=== PATIENT | female | born 1950 | race Caucasian/White ===

== ENCOUNTER 2017-05-05 20:41 | Emergency (ER) | payer MEDICARE, SELFPAY ==
[2017-05-05] VITALS (7 sets, daily range): BP systolic 118–183; BP diastolic 62–108; PULSE 89–121; RESP 13–27; TEMP 36.8; O2SAT 93–99; BMI 33.5
--- NOTE | 2017-05-05 21:00 | RAD_ITS ---
STUDY: X-RAY - RIGHT ANKLE REASON FOR EXAM: Female, 67 years old. Pain, trauma TECHNIQUE: 3 view(s) of the ankle. COMPARISON: None. FINDINGS: There is trimalleolar fracture with disruption of the ankle mortise with lateral posterior subluxation at the ankle joint. No osseous destruction. Normal visualized talus and calcaneus. The visualized subtalar, talonavicular, calcaneocuboid and tarsal articulations are normal. The soft tissue structures are unremarkable. RAD/Ankle 2 Views IMPRESSION: Trimalleolar fracture/subluxation Electronically Signed: Corey Garcia MD at 21:22 EST Tel , Service support ,
[2017-05-05] MEDS: fentaNYL 100 MCG/2 ML Ampul 25 MCG IV (21:03)
[2017-05-05] MEDS: Ondansetron 4 MG/2 ML Vial IV (21:03)
[2017-05-05] MEDS: Propofol 200 MG/20 ML Vial IV BOLUS (21:28)
--- NOTE | 2017-05-05 23:05 | RAD_ITS ---
STUDY: X-RAY - RIGHT ANKLE REASON FOR EXAM: Female, 67 years old. History of ankle fracture. Post reduction. TECHNIQUE: 3 view(s) of the ankle. COMPARISON: 05/05/2017, 9:09 PM. FINDINGS: There again is an oblique displaced fracture of the distal fibula. There again is a transverse displaced fracture of the medial malleolus. There is persistent subluxation of the tibiotalar joint but improved since the previous exam. Fracture of the posterior malleolus is again seen. The pancreas in cast obscuring the soft tissues and bony details. RAD/Ankle min 3 Views IMPRESSION: Trimalleolar fracture of the right ankle as described above. Electronically Signed: Talib Heck MD at 23:26 EST Tel , Service support ,
--- NOTE | 2017-05-05 23:43 | ED.VISSUMM ---
- ER Visit Summary Date of Service: 05/05/17 Chief Complaint: Ankle injury History of Present Illness: The patient is a 67 F who went to let her dog out when she slipped and fell on the wet grass/snow. EMS notes obvious deformity to the right ankle. Patient denies any other injuries. She is a patient of Dr. Hein from orthopedics. Patient received fentanyl in route and she was air splinted. Physical Examination: Afebrile vital signs are stable Gen: Well-nourished well-developed Head: Normocephalic atraumatic Eyes: Perrl EOMI ENT: TMs clear no rhinorrhea moist mucous membranes Neck: Supple no lymphadenopathy no JVD nontender CVS: Regular rate rhythm no murmurs normal S1-S2 Respiratory: No distress clear to auscultation bilaterally chest nontender Abdomen: Soft nontender nondistended normal bowel sounds no masses Back: Nontender Extremity: Right ankle is obviously deformed. There is no fibular head tenderness. She is neurovascularly intact distal to the injury. This appears to be a closed injury Skin: Normal color no rash Neuro: alert orientated ?3 CN II-XII intact normal strength sensation reflexes gait cerebellar Psych: Normal affect normal mood Test Results: X-rays demonstrated trimalleolar fracture Emergency Department Course and Treatment: Patient received fentanyl and Zofran. She provided informed consent for the use of propofol for procedural sedation. Patient received 1 mg/kg bolus followed by 0.5 mg kilogram bolus to achieve adequate sedation. Once adequate sedation the splint was removed the ankle was reduced and was placed in a cotton padded posterior and stirrup splint. Patient was allowed to recover without incident. Post x-ray films were obtained. She was given [place]. She has done okay on crutches in the past. Her is going to get a walker to help with nonweightbearing around the house. They are going to follow-up with Dr. Hein return if worsening. Impression: 1. Right trimalleolar fracture 2. Splint by physician 3. Procedural sedation by physician This note was generated with [employer] dictation software. It may contain incorrect words, spelling, and punctuation that were not noted in review of the chart prior to signing ED Disposition - Plan for ED Patient: Disposition: Home or Assisted Living Chief Complaint: Lower Extremity Injury Instructions: ED Fx Ankle General Prescriptions: Hydrocodone Bitart/Apap 5-325 [[place] 5/325] 1 - 2 tab PO Q4H PRN PRN 3 Days #20 tab PRN Reason: Pain Referrals: Akbar Farias MD [Primary Care Provider] - Ernesto Hein DO [STAFF PHYSICIAN] - (call in am to arrange follow up)
[2017-05-06] MEDS: HYDROcodone Bitartrate/Apap 5/325 Tablet PO (00:09)
[2017-05-06 00:10] VITALS: BP 128/69; PULSE 90; RESP 14; O2SAT 94
== END 2017-05-06 00:57 | disposition home or self-care (01) ==
PROVIDERS: Emergency Provider Emergency Medicine; Family Provider Family Medicine; PCP Family Medicine
DX: S82.851A Displaced trimalleolar fracture of right lower leg, initial encounter for closed fracture (principal); W01.0XXA Fall on same level from slipping, tripping and stumbling without subsequent striking against object, initial encounter; Y93.89 Activity, other specified; Y92.007 Garden or yard of unspecified non-institutional (private) residence as the place of occurrence of the external cause; E78.00 Pure hypercholesterolemia, unspecified; E07.9 Disorder of thyroid, unspecified; Z79.82 Long term (current) use of aspirin; Z79.899 Other long term (current) drug therapy; Z85.3 Personal history of malignant neoplasm of breast
CPT/HCPCS: 29515; 73600; 73610; 96361; 96374; 96375; 99152; 99285; J7030; J7040; A4216; J2405

== ENCOUNTER → 2017-05-12 09:55 | Outpatient (CLI) | payer MEDICARE, SELFPAY ==
[2017-05-12 12:06] LABS: Hematocrit 37.4 % (37-47); Hemoglobin 12.1 g/dl (12.0-15.0); Mean Corp Hgb Conc 32.4 g/gl (32-36); Mean Corpuscular Hgb 30.6 pg (27.0-32.0); Mean Corpuscular Volume 94.7 fL (81-99); Mean Platelet Vol. 10.2 fl (6.2-12.0); Platelet Count 288 K/mm3 (150-450); RBC Distribution Width CV 13.6 % (11.6-14.6); RBC Distribution Width SD 47.2 fl (35.1-43.9); Red Blood Count 3.95 M/mm3 (4.2-5.4); White Blood Count 7.7 K/mm3 (4.4-11.0)
[2017-05-12 12:07] LABS: Scan Indicated on CBC? Y/N NO
[2017-05-12 12:12] LABS: Prothrombin Time (Protime)PT. 12.7 SECONDS (11.7-14.9)
[2017-05-12 12:13] LABS: Partial Thromboplast Time 28.9 Seconds (24.1-36.2)
[2017-05-12 12:38] LABS: Albumin, Serum 3.7 g/dL (3.2-5.0); BUN 16 mg/dL (7-18); BUN/Creat Ratio 19.5 RATIO (10-20); Creatinine, Serum 0.82 mg/dL (0.55-1.02); EST Glomerular Filtration Rate 74 mL/min (>60); Est Glom Filt Rate - Afr Amer 90 mL/min (>60); Globulin 3.7 g/dL (2.2-4.2); Glucose 109 mg/dL (74-106); Protein, Total 7.4 g/dL (6.4-8.2)
[2017-05-12 12:39] LABS: AST(SGOT) 25 U/L (15-37); Alanine Aminotransfer ALT/SGPT 34 U/L (13-56); Alkaline Phosphatase 129 U/L (45-117); Anion Gap 10 (5-15); Calcium,Total 8.7 mg/dL (8.5-10.1); Chloride 107 mmol/L (98-107); Cholesterol 160 mg/dL (200); High Density Lipoprotein 48 mg/dL; Sodium Level 141 mmol/L (136-145); Thyroid Stim Hormone (TSH) 7.16 uIU/mL (0.358-3.74); Triglycerides 246 mg/dL; Very Low Density Lipoprotein 49 mg/dL (5-40)
[2017-05-13 09:47] LABS: Vitamin D,25 Hydroxy 38.1 ng/mL (29.95-100.01)
== END ==
PROVIDERS: Family Provider Family Medicine; PCP Family Medicine; Visit Provider Family Medicine
DX: Z01.818 Encounter for other preprocedural examination (principal); S82.891A Other fracture of right lower leg, initial encounter for closed fracture; E11.9 Type 2 diabetes mellitus without complications; E78.5 Hyperlipidemia, unspecified; E03.9 Hypothyroidism, unspecified
CPT/HCPCS: 36415; 80053; 80061; 82306; 84443; 85027; 85610; 85730

== ENCOUNTER → 2017-05-12 13:23 | Outpatient (CLI) | payer MEDICARE, SELFPAY ==
--- NOTE | 2017-05-12 13:26 | CT_ITS ---
STUDY: CT RIGHT ANKLE WITHOUT CONTRAST REASON FOR EXAM: Female, 67 years old. Right ankle fracture RADIATION DOSAGE (If Supplied By Facility): CTDIvol = ( 15.35 ) mGy, DLP = ( 495.76 ) mGycm TECHNIQUE: Thin section transaxial imaging of the ankle was obtained, with sagittal and coronal reconstructed images. Individualized dose optimization techniques were used for this CT. COMPARISON: None. FINDINGS: There is an acute, comminuted intra-articular spiral fracture of the distal fibula with mild separation of the fracture fragments. There is an obliquely oriented comminuted intra-articular fracture of the posterior malleolus with with mild separation of fracture fragments. There is a transverse fracture through the distal tibial plafond with mild medial displacement of the proximal fracture fragment. There is also widening of the anterior tibiotalar joint. Normal talus, calcaneus, navicular and cuboid tarsal bones. Normal subtalar, talonavicular and calcaneocuboid articulations. Normal navicular-cuneiform, cuneiform tarsal bones and intercuneiform articulations. Normal tarsometatarsal articulations and visualized metatarsi. Diffuse soft tissue swelling is noted. CT/Extremity Lower without Contra IMPRESSION: Acute displaced trimalleolar fracture with anterior tibiotalar subluxation Electronically Signed: Janes Jett MD at 21:01 EST , Service support ,
--- NOTE | 2017-05-12 13:28 | CT_ITS ---
STUDY: CT RIGHT ANKLE WITHOUT CONTRAST REASON FOR EXAM: Female, 67 years old. Right ankle fracture RADIATION DOSAGE (If Supplied By Facility): CTDIvol = ( 15.35 ) mGy, DLP = ( 495.76 ) mGycm TECHNIQUE: Thin section transaxial imaging of the ankle was obtained, with sagittal and coronal reconstructed images. Individualized dose optimization techniques were used for this CT. COMPARISON: None. FINDINGS: There is an acute, comminuted intra-articular spiral fracture of the distal fibula with mild separation of the fracture fragments. There is an obliquely oriented comminuted intra-articular fracture of the posterior malleolus with with mild separation of fracture fragments. There is a transverse fracture through the distal tibial plafond with mild medial displacement of the proximal fracture fragment. There is also widening of the anterior tibiotalar joint. Normal talus, calcaneus, navicular and cuboid tarsal bones. Normal subtalar, talonavicular and calcaneocuboid articulations. Normal navicular-cuneiform, cuneiform tarsal bones and intercuneiform articulations. Normal tarsometatarsal articulations and visualized metatarsi. Diffuse soft tissue swelling is noted. CT/Coronals Sag Multi Obl 3-D Rec IMPRESSION: Acute displaced trimalleolar fracture with anterior tibiotalar subluxation Electronically Signed: Janes Jett MD at 21:01 EST , Service support ,
== END ==
PROVIDERS: Family Provider Family Medicine; PCP Family Medicine; Visit Provider Podiatrist
DX: Z01.818 Encounter for other preprocedural examination (principal); S82.851A Displaced trimalleolar fracture of right lower leg, initial encounter for closed fracture; E11.9 Type 2 diabetes mellitus without complications; E78.5 Hyperlipidemia, unspecified; E03.9 Hypothyroidism, unspecified
CPT/HCPCS: 36415; 73700; 76377; 80053; 80061; 82306; 84443; 85027; 85610; 85730

== ENCOUNTER 2017-05-16 18:55 | Observation (INO) | payer MEDICARE, SELFPAY ==
[2017-05-16] VITALS (11 sets, daily range): BP systolic 127–197; BP diastolic 63–96; PULSE 83–105; RESP 14–18; TEMP 36.4–37.1; O2SAT 92–100; BMI 29.4; BMI 30.3
--- NOTE | 2017-05-16 11:15 | RAD_ITS ---
STUDY: X-RAY CHEST REASON FOR EXAM: Female, 67 years old. Pre-op TECHNIQUE: Frontal and lateral views of the chest. COMPARISON: None. FINDINGS: Normal lung volumes. 9 mm nodule in the mid right lung. CT scan recommended. No infiltrates or effusions. There is no demonstrated pleural abnormality. Normal size heart. Normal mediastinum and sasha. Normal visualized pulmonary arteries. Normal visualized aortic arch and descending thoracic aorta. Normal visualized thoracic spine. Normal visualized ribs, clavicles, and shoulders. There is no demonstrated abnormality of the visualized soft tissue structures of the upper abdomen. RAD/Chest PA and Lateral IMPRESSION: 9 mm nodule in the mid right lung. CT scan recommended. Electronically Signed: Charlie Lynn MD at 11:48 EDT , Service support ,
[2017-05-16 12:56] LABS: Bedside Glucose 121 mg/dL (70-110)
--- NOTE | 2017-05-16 13:00 | RAD_ITS ---
STUDY: X-RAY - RIGHT ANKLE REASON FOR EXAM: Female, 67 years old. ORIF right ankle fractures TECHNIQUE: 10 C-arm view(s) of the ankle. 68.6 seconds fluoroscopy time COMPARISON: None. FINDINGS: These images show grossly satisfactory appearance of the ankle, medial malleolus, and distal fibula status post ORIF. Correlate with procedure note. Electronically Signed: Charlie Lynn MD at 15:38 EDT , Service support , RAD/Ankle min 3 Views
[2017-05-16 13:08] LABS: Hemoglobin A1c 6.2 % (4.2-6.3)
[2017-05-16] MEDS: Clindamycin 900 MG/50 ML BAG 75 MG IV (13:33)
[2017-05-16] MEDS: Bupivacaine Mpf 0.5% 30 ML VIAL (15:30)
--- NOTE | 2017-05-16 15:55 | PCM.OPRPT ---
Report of Operation Date of Procedure: 05/16/17 - Surgeon: Janes Avalos DPM Pre-Operative Diagnosis: Trimalleolus Ankle Fracture, Right Post-Operative Diagnosis: Same Surgery/Procedure Performed:: Open reduction internal fixation, right trimalleolus ankle fracture Description of Surgical Findings:: Trimalleolar ankle fracture office services assistant: Yes - Dr. Mariam River Type of Anesthesia:: General, Spinal Specimen's removed: None Estimated Blood Loss (mL): 20mL Description of Procedure: Indications: This is a 67 year old female sustained a right trimalleolar ankle fracture on 05/05/17. Closed reduction was preformed by the Emergency Room physician. Pre operative xrays as well as CT scan were obtained and reviewed. There was trimalleolar ankle fracture with subluxation present, there was mild diastasis of the distal tib fib syndesmosis. Patient elected to proceed forward with open reduction internal fixation of the trimalleolar ankle fracture. The procedure was reviewed with her in detail. The rationale of the procedure was reviewed with her. The goals and the expectations were discussed and reviewed with her. The possible benefits vs risks and all potential complications were discussed and reviewed with the patient. The patient expressed understanding and agreement, and elected to proceed forward with the procedure. All of her questions were answered. The consent forms were reviewed with her and she freely signed them. No guarantees were given or implied. Operative Procedure: The patient was brought back to the operating room and was placed on the operating room table in the supine position. She did received spinal anesthesia per the anesthesia service. The patient was carefully secured to the operating room table with a safety belt around her waist. The patient received 900 milligrams of IV clindamycin for antibiotic prophylaxis. The anesthesia team decided to also give the patient general anesthesia as sensation was still intact to the right lower extremity following the spinal anesthesia. A well padded pneumatic tourniquet was applied around her right thigh. The right lower extremity was scrubbed, prepped, and draped in the usual aseptic fashion. The right foot/ankle was elevated for 3 minutes and the right thigh pneumatic tourniquet was inflated to 350mmHg. The ankle was noted to be unstable due to the trimalleolar fracture. There was noted to be a well healed fracture blister to the medial ankle. Using a 15 blade, a skin incision was made overlying the lateral malleolus. Careful dissection (combination of blunt and sharp) was completed down to the lateral malleolus fracture. The periosteum was left intact. It was noted the posterior aspect of the distal fracture fragment was comminuted. The fibula was brought out to length and was rotated back to normal position, it was stabilized with a bone clamp. An intra-fragment screw was not placed across the fracture site due to the comminution which was present. Rather the fracture was fixated using rigid open reduction internal fixation technique with 1 Arthrex a titanium distal fibular plate, which was applied across the fracture site using a total of five 2.7mm locking screws distally and three 3.5mm locking screws and one 3.5mm cortical screw proximally through the plate. The clamp was removed. There fracture was reduced, very stable, and in good position. This was confirmed visually as well as using intra operative fluoroscopy. Attention was directed to the medial malleolus. A skin incision was made overlying the medial malleolus using a 15 scalpel blade. Careful blunt dissection was completed down to the medial malleolus where the fracture was identified. There was soft tissue inter position between the fracture fragments. This was composed of periosteum. The periosteum was moved out from in between the fracture fragments and the medial malleolus was reduced back manually into normal position. The medial malleolus fracture site was fixated with two 4.0mm Arthrex cannulated screws. There fracture was reduced, stable, and in good position. This was confirmed visually as well as using intra operative fluoroscopy. There was noted to be very mild instability of the distal syndesmosis, and the . The distal ankle syndesmosis was stressed with a bone hook as well as with dorsiflexion external rotation stress test, and it was noted be be stable with no gapping present. At this time there was noted to be excellent stability to the ankle joint, range of motion was smooth and gliding normally. There was no popping, clicking, or crepitus present. Intraoperative fluoroscopy was used to check the site and it was noted fibular length and tib fib overlap was normal, ankle mortise with medial and lateral gutters in normal position/alignment with good positioning of the plate, screws, and tight rope. There was good bone to bone alignment of the fracture sites. There was excellent stability to the ankle / fracture site. The ankle was stressed under fluoroscopy and negative anterior drawer, normal talar tilt, no medial gutter gapping with external stress test, and no gapping or instability with Cotton test as noted above. The surgical site was flushed out with copious amounts of normal saline solution. The subcutaneous tissue was reapproximated using 2-0 and 3-0 Vicryl, and the skin was 3-0 Monocryl. 10mL of 0.55% Marcaine plain was given as a saphenous nerve block to aid post operative pain control. The incision sites and margins were painted with Cavilon and steri strips were applied. A dressing was applied which consisted of betadine soaked adaptic, 4x4 gauze, kerlix, webril, lisa bandages, and well padded below knee posterior splint. Prior to closure the tight pneumatic tourniquet was deflated and it was noted all hemostasis was achieved. There was immediate return of vascular flow to the foot/ankle, CFT < 2 seconds, and normal temperature present. Total tourniquet time was 79 minutes. Also of note, all vital structures, including all vital neurovascular and tendon structures were properly identified, protected and retracted as necessary. The patient tolerated the above procedure well and anesthesia well with no complications. The patient was transports to the recovery room in good condition and vital signs stable. The patient did receive a right lower extremity popliteal block per the anesthesiology service in the recovery room for post operative pain control. Post op orders were placed, no weightbearing right foot, keep right foot elevated. She will be admitted for post op pain control and observation. I spoke with hospitalist Dr. Thomas, who agreed. Patient will be followed as inpatient. Grafts/Implants Used: Arthrex fibular plate, Arthrex screws, Arthrex tightropes - Complications None
--- NOTE | 2017-05-16 16:10 | RAD_ITS ---
STUDY: X-RAY - RIGHT ANKLE REASON FOR EXAM: Female, 67 years old. Postop TECHNIQUE: 3 view(s) of the ankle. COMPARISON: May 16, 2017 FINDINGS: Postsurgical changes status post open reduction internal fixation falls casting of distal tibial and fibular fractures. Fracture fragments are in near anatomic alignment and position RAD/Ankle min 3 Views IMPRESSION: Status post ORIF and casting distal tibial and fibular fractures Electronically Signed: Janes Jett MD at 20:06 EDT , Service support ,
[2017-05-16 16:21] LABS: Bedside Glucose 123 mg/dL (70-110)
--- NOTE | 2017-05-16 16:45 | PCM.HP.STD ---
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 This is a 67 years old female patient admitted for elective surgery for traumatic trimalleolar right ankle fracture on May 05, 2017 and she underwent open reduction internal fixation today and she is being admitted for postoperative pain control and management. At this time, she mentioned that her right ankle pain is about 6 out of 10 in severity, dull aching pain, not radiating and no associated symptoms. She had a mechanical fall back on May 05, 2017 that led to this fracture. She denied chest pain or shortness of breath. Denied abdominal pain, nausea vomiting. Denied fever or chills. Denied cough or sputum production. She has history of type 2 diabetes mellitus she has been on metformin, most recent hemoglobin A1c was on May 12, 2017 and was 6.2. She had a history of hypothyroidism, has been on levothyroxine and her TSH was 7.1 on May 12, 2018 which is above reference range. She has history of hypertension and she has been on losartan and usually her blood pressure under control. At this time, blood pressure is slightly elevated, heart rate has been in the 90s, pulse ox is 100% on 3 L of oxygen. Preoperative routine blood work including CBC and BMP that was performed on May 12, 2017 reviewed and was unremarkable. She is being admitted for traumatic trimalleolar right ankle fracture status post ORIF for postoperative pain control and management. Past Medical History Past Medical History (Chronic Problems): Chronic Problems (Last Reviewed 03/02/17 @ 14:08 by Erin Gibbons) Hypothyroidism (Chronic) Type 2 diabetes mellitus (Chronic) Hypertension (Chronic) History of right breast cancer (Chronic) Ductal carcinoma of breast (Chronic) Allergies Penicillins [PCN] Allergy (Severe, Verified 05/12/17 14:18) Hives Home Medications: Ambulatory Orders Medication Instructions Recorded Atorvastatin Calcium [Lipitor] 40 mg PO QHS 06/02/16 Levothyroxine [Synthroid] 112 mcg PO DAILY 06/02/16 Metformin HCl [Glucophage] 500 mg PO QHS 06/02/16 Niacin [Niaspan] 1,000 mg PO QHS 06/02/16 Pramipexole Di-HCl [Mirapex] 0.5 mg PO BID 06/02/16 Losartan Potassium [Cozaar] 50 mg PO DAILY 08/03/16 Omeprazole [Prilosec] 40 mg PO DAILY 08/03/16 Aspirin, Baby 81 mg PO QHS 05/05/17 Hydrocodone Bitart/Apap 5-325 1 - 2 tab PO Q4H PRN PRN 3 Days 05/05/17 [[place] 5/325] #20 tab Calcium Carbonate/Vitamin D3 1 each PO BID 05/12/17 [Calcium 600 with Vit D Chew Tb] Citalopram [Celexa] 20 mg PO QHS 05/12/17 Multivit with Calcium,Iron,Min 1 each PO DAILY 05/12/17 [Multiple Vitamins For Women] Naproxen Sodium [Aleve] 440 mg PO DAILY 05/12/17 Surgical History: noncontributory Psychiatric History: No pertinent psych hx RESPIRATORY CARE FACULTY History: No pertinent RESPIRATORY CARE FACULTY history Lives: Spouse/ Significant Other Smoking Status: Never smoker Alcohol: None Drugs: None - *Family History Maternal History Items: No pertinent history Review of Systems Constitutional: Denies: Anorexia, Chills, Fever, Weakness Eyes: Denies: Blurred vision, Double vision, Drainage, Redness HEENT: Denies: Difficulty Hearing, Ear Pain, Eye Pain, Nasal Congestion, Post Nasal Drip, Sore Throat Cardiovascular: Denies: Chest Pain, Chest Pressure, Chest Tightness, Edema, Heaviness, Paroxysmal Noc. Dyspnea, Syncope Respiratory: Denies: Cough, Hemoptysis, Pleuritic Pain, Shortness of Breath, Sputum production Gastrointestinal: Denies: Abdominal Pain, Constipation, Diarrhea, Nausea, Vomiting Genitourinary: Denies: Dysuria, Frequency, Hematuria Musculoskeletal: Reports: Foot Pain, Joint Pain. Denies: Arm Pain, Back Pain Skin: Denies: Dryness, Rash Neurological: Denies: Balance problems, Blurred vision, Change in Speech, Slurred speech, Confusion, Incoordination, Numbness Psychiatric: Denies: Anxiety Endocrine: Denies: Change in Body Habitus, Polydipsia VTE Information - Inpt Only VTE Present on Admission: No VTE Mechan Device Prophylaxis: SCD's VTE Pharm Prophylaxis ordered?: No - Physical Exam General: Alert, Cooperative, No apparent distress HEENT: Atraumatic, PERRLA, EOMI Oral: Moist Mucosa, No Gingival or Mucosal Lesions/ Ulcerations Neck: Supple, No JVD, Negative Carotid Bruits, Trachea Midline, Thyroid Normal Size and Texture Lungs: Clear to auscultation, No rhonchi, No wheeze, No rales, Diminished Cardiovascular: Regular rate, Regular Rhythm, Normal S1, Normal S2, No murmurs, PMI Normal Abdomen: Bowel Sounds Present, Soft, Non Tender, Non-Distended, No Hepato-splenomegaly Extremities: No clubbing, No cyanosis, No edema Skin: No rashes, No breakdown Lymphatic: No Cervical, Supraclavicular, or Inguinal Adenopathy Neurological: Cranial nerves II-XII grossly intact, Motor Exam 5/5 strength throughout Psych/Mental Status: Normal Affect, Appropriate, Alert and oriented to time, place, person, mood and affect Vital Signs Temp Pulse Resp BP Pulse Ox 97.7 F L 95 16 175/81 H 100 05/16/17 16:00 05/16/17 16:15 05/16/17 16:15 05/16/17 16:15 05/16/17 16:15 Oxygen Flow Rate (L/min) 3 Oxygen Delivery Method Nasal Cannula Weight: 177 lb Body Mass Index (BMI) 29.4 Laboratory Tests Past 24 Hrs 05/12/17 10:00 Hemoglobin A1c 6.2 POC Glucose 05/16/17 05/16/17 16:17 12:08 POC Glucose 123 H 121 H Assessment/Plan The patient is a 67 year old F with past medical history as mentioned above who underwent elective surgery for traumatic trimalleolar right ankle fracture due to mechanical fall on May 05, 2017 and she underwent open reduction and internal fixation today and she is being admitted for postoperative pain control and management. #1 traumatic trimalleolar right ankle fracture: Status post ORIF, postop day 1. At this time, right ankle pain is manageable. Blood pressure slightly elevated, other vital signs are stable. Plan: Admit to MedSurg floor, cardiac monitoring, IV hydromorphone for pain as needed, OxyIR as needed for pain, podiatry medicine consult, laxatives, continue perioperative prophylaxis with IV clindamycin, PT OT evaluation and treatment. #2 type 2 diabetes mellitus: ADA diet, Accu-Cheks, insulin sliding scale, hold metformin,. #3 hypertension: Blood pressure slightly elevated, continue losartan, start IV hydrazine as needed #4 hypothyroidism: TSH was 7.1 recently. Plan to continue levothyroxine, check free and total T4 as well as free T3. #5 hyperlipidemia: Continue statins. #6 depression: Continue Celexa. #7 history of breast cancer: Status post mastectomy, stable, in remission. #8 DVT prophylaxis: Full dose aspirin daily, SCDs. This note was generated with [employer] dictation software. It may contain incorrect words, spelling, and punctuation that were not noted in checking the note before signing. Code Visit Inpatient E&M: 50068 Init Hosp L3
--- NOTE | 2017-05-16 16:48 | HP.PCM_ITS ---
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 This is a 67 years old female patient admitted for elective surgery for traumatic trimalleolar right ankle fracture on May 05, 2017 and she underwent open reduction internal fixation today and she is being admitted for postoperative pain control and management. At this time, she mentioned that her right ankle pain is about 6 out of 10 in severity, dull aching pain, not radiating and no associated symptoms. She had a mechanical fall back on May that led to this fracture. She denied chest pain or shortness of breath. Denied abdominal pain, nausea vomiting. Denied fever or chills. Denied cough or sputum production. She has history of type 2 diabetes mellitus she has been on metformin, most recent hemoglobin A1c was on May 12, 2017 and was 6.2. She had a history of hypothyroidism, has been on levothyroxine and her TSH was 7.1 on May 12, 2018 which is above reference range. She has history of hypertension and she has been on losartan and usually her blood pressure under control. At this time, blood pressure is slightly elevated, heart rate has been in the 90s, pulse ox is 100% on 3 L of oxygen. Preoperative routine blood work including CBC and BMP that was performed on May 12, 2017 reviewed and was unremarkable. She is being admitted for traumatic trimalleolar right ankle fracture status post ORIF for postoperative pain control and management. Past Medical History Past Medical History (Chronic Problems): Chronic Problems (Last Reviewed 03/02/17 @ 14:08 by Erin Gibbons) Hypothyroidism (Chronic) Type 2 diabetes mellitus (Chronic) Hypertension (Chronic) History of right breast cancer (Chronic) Ductal carcinoma of breast (Chronic) Allergies Penicillins [PCN] Allergy (Severe, Verified 05/12/17 14:18) Hives Home Medications: Ambulatory Orders Medication Instructions Recorded Atorvastatin Calcium [Lipitor] 40 mg PO QHS 06/02/16 Levothyroxine [Synthroid] 112 mcg PO DAILY 06/02/16 Metformin HCl [Glucophage] 500 mg PO QHS 06/02/16 Niacin [Niaspan] 1,000 mg PO QHS 06/02/16 Pramipexole Di-HCl [Mirapex] 0.5 mg PO BID 06/02/16 Losartan Potassium [Cozaar] 50 mg PO DAILY 08/03/16 Omeprazole [Prilosec] 40 mg PO DAILY 08/03/16 Aspirin, Baby 81 mg PO QHS 05/05/17 Hydrocodone Bitart/Apap 5-325 1 - 2 tab PO Q4H PRN PRN 3 Days 05/05/17 [[place] 5/325] #20 tab Calcium Carbonate/Vitamin D3 1 each PO BID 05/12/17 [Calcium 600 with Vit D Chew Tb] Citalopram [Celexa] 20 mg PO QHS 05/12/17 Multivit with Calcium,Iron,Min 1 each PO DAILY 05/12/17 [Multiple Vitamins For Women] Naproxen Sodium [Aleve] 440 mg PO DAILY 05/12/17 Surgical History: noncontributory Psychiatric History: 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 Dyspnea, Syncope Respiratory: Denies: Cough, Hemoptysis, Pleuritic Pain, Shortness of Breath, Sputum production Gastrointestinal: Denies: Abdominal Pain, Constipation, Diarrhea, Nausea, Vomiting Genitourinary: Denies: Dysuria, Frequency, Hematuria Musculoskeletal: Reports: Foot Pain, Joint Pain. Denies: Arm Pain, Back Pain Skin: Denies: Dryness, Rash Neurological: Denies: Balance problems, Blurred vision, Change in Speech, Slurred speech, Confusion, Incoordination, Numbness Psychiatric: Denies: Anxiety Endocrine: Denies: Change in Body Habitus, Polydipsia VTE Information - Inpt Only VTE Present on Admission: No VTE Mechan Device Prophylaxis: SCD's VTE Pharm Prophylaxis ordered?: No - Physical Exam General: Alert, Cooperative, No apparent distress HEENT: Atraumatic, PERRLA, EOMI Oral: Moist Mucosa, No Gingival or Mucosal Lesions/ Ulcerations Neck: Supple, No JVD, Negative Carotid Bruits, Trachea Midline, Thyroid Normal Size and Texture Lungs: Clear to auscultation, No rhonchi, No wheeze, No rales, Diminished Cardiovascular: Regular rate, Regular Rhythm, Normal S1, Normal S2, No murmurs, PMI Normal Abdomen: Bowel Sounds Present, Soft, Non Tender, Non-Distended, No Hepato- splenomegaly Extremities: No clubbing, No cyanosis, No edema Skin: No rashes, No breakdown Lymphatic: No Cervical, Supraclavicular, or Inguinal Adenopathy Neurological: Cranial nerves II-XII grossly intact, Motor Exam 5/5 strength throughout Psych/Mental Status: Normal Affect, Appropriate, Alert and oriented to time, place, person, mood and affect Vital Signs Temp Pulse Resp BP Pulse Ox 97.7 F L 95 16 175/81 H 100 05/16/17 16:00 05/16/17 16:15 05/16/17 16:15 05/16/17 16:15 05/16/17 16:15 Oxygen Flow Rate (L/min) 3 Oxygen Delivery Method Nasal Cannula Weight: 177 lb Body Mass Index (BMI) 29.4 Laboratory Tests Past 24 Hrs 05/12/17 10:00 Hemoglobin A1c 6.2 POC Glucose 05/16/17 05/16/17 16:17 12:08 POC Glucose 123 H 121 H Assessment/Plan The patient is a 67 year old F with past medical history as mentioned above who underwent elective surgery for traumatic trimalleolar right ankle fracture due to mechanical fall on May 05, 2017 and she underwent open reduction and internal fixation today and she is being admitted for postoperative pain control and management. #1 traumatic trimalleolar right ankle fracture: Status post ORIF, postop day 1. At this time, right ankle pain is manageable. Blood pressure slightly elevated, other vital signs are stable. Plan: Admit to MedSurg floor, cardiac monitoring, IV hydromorphone for pain as needed, OxyIR as needed for pain, podiatry medicine consult, laxatives, continue perioperative prophylaxis with IV clindamycin, PT OT evaluation and treatment. #2 type 2 diabetes mellitus: ADA diet, Accu-Cheks, insulin sliding scale, hold metformin,. #3 hypertension: Blood pressure slightly elevated, continue losartan, start IV hydrazine as needed #4 hypothyroidism: TSH was 7.1 recently. Plan to continue levothyroxine, check free and total T4 as well as free T3. #5 hyperlipidemia: Continue statins. #6 depression: Continue Celexa. #7 history of breast cancer: Status post mastectomy, stable, in remission. #8 DVT prophylaxis: Full dose aspirin daily, SCDs. This note was generated with [employer] dictation software. It may contain incorrect words, spelling, and punctuation that were not noted in checking the note before signing. Code Visit Inpatient E&M: 41739 Init Hosp L3
[2017-05-16 19:59] LABS: T4 Free Direct 1.04 ng/dL (0.76-1.46); T4 Total, Thyroxin 9.7 ug/dL (4.8-13.9)
[2017-05-16] MEDS: Clindamycin 600 MG/50 ML BAG 100 MG IV (22:06)
[2017-05-16] MEDS: Citalopram 20 MG Tablet PO (22:07)
[2017-05-16] MEDS: Atorvastatin Calcium 40 MG Tablet PO (22:07)
[2017-05-16] MEDS: Acetaminophen 500 MG Tablet PO (22:08)
[2017-05-16] MEDS: Pramipexole Di-HCl 0.5 MG Tablet PO (22:08)
[2017-05-16] MEDS: Senna Tablet 1 TABLET PO (22:08)
[2017-05-16] MEDS: oxyCODONE 5 MG Tablet 10 MG PO (23:54)
[2017-05-17 02:49] VITALS: BP 141/64; PULSE 91; RESP 18; TEMP 37.3; O2SAT 97
[2017-05-17] MEDS: Acetaminophen 500 MG Tablet PO (02:55)
[2017-05-17 05:21] LABS: Absolute Lymphocyte Count 1.27 X10^3/ul (0.83-4.51); Absolute Neutrophil Count 6.8 X10^3/uL (2.0-7.7); Basophil# 0.02 X10^3/uL; Basophil% 0.2 % (0-1); Eosinophil# 0.04 X10^3/uL; Eosinophils% 0.4 % (0-5); Hematocrit 31.1 % (37-47); Hemoglobin 10.2 g/dl (12.0-15.0); Lymphocyte # 1.27 X10^3/ul (4.0); Lymphocyte % 13.8 % (19-41); Mean Corp Hgb Conc 32.8 g/gl (32-36); Mean Corpuscular Volume 94.5 fL (81-99); Mean Platelet Vol. 9.4 fl (6.2-12.0); Monocyte# 1.04 X10^3/uL; Monocyte% 11.3 % (0-10); Neutrophil # 6.84 X10^3/uL (2.7-7.7); Neutrophil % 74.1 % (47-70); Platelet Count 233 K/mm3 (150-450); RBC Distribution Width CV 13.9 % (11.6-14.6); Red Blood Count 3.29 M/mm3 (4.2-5.4); White Blood Count 9.2 K/mm3 (4.4-11.0)
[2017-05-17 05:22] LABS: POSITIVE COUNT NO; POSITIVE DIFFERENTIAL NO; POSITIVE MORPHOLOGY NO
[2017-05-17 05:34] LABS: Prothrombin Time (Protime)PT. 13.6 SECONDS (11.7-14.9)
[2017-05-17 05:37] LABS: Anion Gap 9 (5-15); BUN 13 mg/dL (7-18); BUN/Creat Ratio 14.8 RATIO (10-20); Chloride 105 mmol/L (98-107); Creatinine, Serum 0.88 mg/dL (0.55-1.02); EST Glomerular Filtration Rate 68 mL/min (>60); Est Glom Filt Rate - Afr Amer 83 mL/min (>60); Estimated Creatinine Clearance 57.35 ml/min; Glucose 127 mg/dL (74-106); Potassium 3.9 mmol/L (3.5-5.1); Sodium Level 141 mmol/L (136-145)
[2017-05-17] MEDS: Levothyroxine 112 MCG Tablet PO (05:49)
[2017-05-17] MEDS: oxyCODONE 5 MG Tablet 10 MG PO (05:49)
[2017-05-17] MEDS: Clindamycin 600 MG/50 ML BAG 100 MG IV ×2 (05:50→12:40)
--- NOTE | 2017-05-17 07:22 | PCM.PROGNOTE ---
Subjective: Patient is a 67-year-old female with past medical history of hypothyroidism, diabetes mellitus type 2, hypertension, right breast cancer and trimalleolar fracture of the right ankle on 05/05/2017. She had open reduction internal fixation on 05/16/[address] Avalos. Was admitted to the hospital for pain control at the request of Dr. Avalos. She is afebrile. Vital signs are stable. Hemoglobin today is 10.2, down from 12.1 on 05/12/2017. BMP is unremarkable. Blood sugars are well controlled. Hemoglobin A1c was 6.2. T4 is within normal limits. She tells me the pain in the RLE was better with [place]....this is what she was taking at home. She desaturates when she is sleeping. - Physical Exam General: Oriented x3, Cooperative, - - had Dilaudid this AM and she falls off to sleep but is easily arousable HEENT: Atraumatic, PERRLA Oral: Moist Mucosa Lungs: Clear to auscultation Cardiovascular: Regular rate, Regular Rhythm, Normal S1, Normal S2, No Gallop Abdomen: Bowel Sounds Present, Soft, Non Tender, Obese Extremities: - - RLE is in a cast Skin: No rashes, No breakdown Musculoskeletal: - - the toes on the right foot are warm and she has intact sensation Neurological: Cranial nerves II-XII grossly intact, Neuro grossly intact Psych/Mental Status: Normal Affect, Appropriate Vital Signs Temp Pulse Resp BP Pulse Ox 99.2 F H 91 18 141/64 H 97 05/17/17 02:49 05/17/17 02:49 05/17/17 02:49 05/17/17 02:49 05/17/17 02:49 Oxygen Flow Rate (L/min) 2 Oxygen Delivery Method Nasal Cannula Weight: 182 lb 5.156 oz Body Mass Index (BMI) 30.3 Intake and Output for Last 24 Hours 05/15/17 05/16/17 05/17/17 23:59 23:59 23:59 Intake Total 1900 / 1900 788 / 788 Output Total 1200 / 1200 Balance 1900 / 1900 -412 / -412 Laboratory Tests Past 24 Hrs 05/12/17 05/16/17 05/17/17 10:00 19:15 05:04 WBC 9.2 RBC 3.29 L Hgb 10.2 L Hct 31.1 L MCV 94.5 MCH 31.0 MCHC 32.8 RDW 13.9 RDW Differential 48.0 H Plt Count 233 MPV 9.4 Immature Gran % (Auto) 0.200 Neut % (Auto) 74.1 H Lymph % (Auto) 13.8 L [place] % (Auto) 11.3 H Eos % (Auto) 0.4 Baso % (Auto) 0.2 Absolute Neuts (auto) 6.8 Absolute Lymphs (auto) 1.27 Total Counted Not Reportable PT INR Sodium Potassium Chloride Carbon Dioxide Anion Gap BUN Creatinine Estim Creat Clear Calc Est GFR (MDRD) Af Amer Est GFR (MDRD) Non-Af BUN/Creatinine Ratio Glucose Hemoglobin A1c 6.2 Calcium Free T4 1.04 Thyroxine (T4) 9.7 Free T3 pg/dL 2.0 L 05/17/17 05/17/17 05:04 05:04 WBC RBC Hgb Hct MCV MCH MCHC RDW RDW Differential Plt Count MPV Immature Gran % (Auto) Neut % (Auto) Lymph % (Auto) [place] % (Auto) Eos % (Auto) Baso % (Auto) Absolute Neuts (auto) Absolute Lymphs (auto) Total Counted PT 13.6 INR 1.0 Sodium 141 Potassium 3.9 Chloride 105 Carbon Dioxide 27.0 Anion Gap 9 BUN 13 Creatinine 0.88 Estim Creat Clear Calc 57.35 Est GFR (MDRD) Af Amer 83 Est GFR (MDRD) Non-Af 68 BUN/Creatinine Ratio 14.8 Glucose 127 H Hemoglobin A1c Calcium 8.0 L Free T4 Thyroxine (T4) Free T3 pg/dL POC Glucose 05/16/17 05/16/17 16:17 12:08 POC Glucose 123 H 121 H Assessment/Plan Impressions 1. S/P ORIF of R trimalleolar fracture 05/[address] Avalos 2. sleep disordered breathing 3. Diabetes mellitus type [id number] with a hemoglobin A1c of 6.2 4. Hypertension 5. Hypothyroidism-free T4 is normal at 9.7 6. History of right-sided breast cancer DC the Dilaudid and the Oxy IR and start [place] 5/325 2 tabs every 4 hours while awake Needs and OP sleep study DC later this afternoon if pain is controlled She will resume knee walker that she has at home Will try and get patient qualified for home O2 prior in the interim before a sleep study
[2017-05-17 08:00] VITALS: BP 126/65; PULSE 105; RESP 16; TEMP 36.7; O2SAT 92
--- NOTE | 2017-05-17 08:26 | PN_ITS ---
Subjective: Patient with history of diabetes was seen this morning for follow up on ORIF right trimalleolar ankle fracture on 05/16/17. She relates ankle is painful and had difficulty sleeping last night. Otherwise patient denies fever, chill, nausea, vomiting, shortness of breath, chest pain, calf pain. Objective: Noted hgb at 10.2; there was minimal blood loss from surgery; no strikethrough on dressing or evidence of active bleeding at surgical site - Physical Exam General: Alert, Oriented x3, Cooperative, No apparent distress Extremities: No cyanosis, Capillary Refill Less than 3 Seconds, No Calf Tenderness, - - Dressing/splint clean, dry, and intact to the right lower extremity, no strikethrough on bandage, toes normal temperature, CFT < 2 seconds to all toes, sensation intact to the toes, and motor function intact to the toes right foot; no suspicion for infection or DVT at this time. Vital Signs Temp Pulse Resp BP Pulse Ox 99.2 F H 91 18 141/64 H 97 05/17/17 02:49 05/17/17 02:49 05/17/17 02:49 05/17/17 02:49 05/17/17 02:49 Oxygen Flow Rate (L/min) 2 Oxygen Delivery Method Nasal Cannula Weight: 82.7 kg Body Mass Index (BMI) 30.3 Intake and Output for Last 24 Hours 05/15/17 05/16/17 05/17/17 23:59 23:59 23:59 Intake Total 1900 / 1900 788 / 788 Output Total 1200 / 1200 Balance 1900 / 1900 -412 / -412 Laboratory Tests Past 24 Hrs 05/12/17 05/16/17 05/17/17 10:00 19:15 05:04 WBC 9.2 RBC 3.29 L Hgb 10.2 L Hct 31.1 L MCV 94.5 MCH 31.0 MCHC 32.8 RDW 13.9 RDW Differential 48.0 H Plt Count 233 MPV 9.4 Immature Gran % (Auto) 0.200 Neut % (Auto) 74.1 H Lymph % (Auto) 13.8 L [place] % (Auto) 11.3 H Eos % (Auto) 0.4 Baso % (Auto) 0.2 Absolute Neuts (auto) 6.8 Absolute Lymphs (auto) 1.27 Total Counted Not Reportable PT INR Sodium Potassium Chloride Carbon Dioxide Anion Gap BUN Creatinine Estim Creat Clear Calc Est GFR (MDRD) Af Amer Est GFR (MDRD) Non-Af BUN/Creatinine Ratio Glucose Hemoglobin A1c 6.2 Calcium Free T4 1.04 Thyroxine (T4) 9.7 Free T3 pg/dL 2.0 L 05/17/17 05/17/17 05:04 05:04 WBC RBC Hgb Hct MCV MCH MCHC RDW RDW Differential Plt Count MPV Immature Gran % (Auto) Neut % (Auto) Lymph % (Auto) [place] % (Auto) Eos % (Auto) Baso % (Auto) Absolute Neuts (auto) Absolute Lymphs (auto) Total Counted PT 13.6 INR 1.0 Sodium 141 Potassium 3.9 Chloride 105 Carbon Dioxide 27.0 Anion Gap 9 BUN 13 Creatinine 0.88 Estim Creat Clear Calc 57.35 Est GFR (MDRD) Af Amer 83 Est GFR (MDRD) Non-Af 68 BUN/Creatinine Ratio 14.8 Glucose 127 H Hemoglobin A1c Calcium 8.0 L Free T4 Thyroxine (T4) Free T3 pg/dL POC Glucose 05/16/17 05/16/17 16:17 12:08 POC Glucose 123 H 121 H Assessment/Plan s/p trimalleolar ankle fracture ORIF on 05/16/17 Post operative pain Diabetes Mellitus Keep dressing/splint left lower extremity clean, dry, intact. No weightbearing right foot/ankle. Keep right foot/ankle elevated. Physical therapy to see patient today. Continue with pain management. DVT Prophylaxis: Aspirin 325mg PO once a day. Patient on clindamycin (PCN allergy) for antibiotic prophylaxis given diabetic status and ankle ORIF. Recommended continued monitoring and once pain is controlled with oral pain medications, okay to discharge home. I did put in discharge instructions. Appreciate medicine teams assistance.
[2017-05-17] MEDS: Losartan Potassium 50 MG Tablet PO (08:40)
[2017-05-17] MEDS: Senna Tablet 1 TABLET PO (08:40)
[2017-05-17] MEDS: Pantoprazole Sodium 40 MG Tablet PO (08:40)
[2017-05-17] MEDS: 0.9% NaCl Peripheral Flush Adult/Peds IV (08:40)
[2017-05-17] MEDS: HYDROmorphone 1 MG/ML Syringe IV (08:40)
[2017-05-17] MEDS: Aspirin 325 MG Tablet PO (08:40)
[2017-05-17] MEDS: Pramipexole Di-HCl 0.5 MG Tablet PO (08:41)
[2017-05-17 08:47] VITALS: O2SAT 92
--- NOTE | 2017-05-17 08:59 | PCM.DC.POD ---
Discharge Activity: May Not Drive Weight Bearing Status: No weight bearing - Strict nonweightbearing right foot Keep extremity elevated above heart level: Right Leg - Keep right foot elevated using pillows for at least 50 minutes of every hour Call your doctor if your incision/area has: Continuous Slow Oozing, Sudden Increased Bleeding, Increased Redness, Foul Smelling Discharge Call your doctor if you observe: Fever of 101 or Higher, Coldness, Increased Pain, Shortness of breath, Chest pain, Increased palpitations (irregular heartbeat), Calf discomfort, Uncontrolled pain Cleanse incision/area with: Do not get Incision Wet, Keep Dressing Clean & Dry Allergies/Adverse Reactions: Allergies Penicillins [PCN] Allergy (Severe, Verified 05/12/17 14:18) Hives Medications to take at Discharge Atorvastatin Calcium [Lipitor] 40 mg PO QHS 06/02/16 Levothyroxine [Synthroid] 112 mcg PO DAILY 06/02/16 Metformin HCl [Glucophage] 500 mg PO QHS 06/02/16 Niacin [Niaspan] 1,000 mg PO QHS 06/02/16 Pramipexole Di-HCl [Mirapex] 0.5 mg PO BID 06/02/16 Losartan Potassium [Cozaar] 50 mg PO DAILY 08/03/16 Omeprazole [Prilosec] 40 mg PO DAILY 08/03/16 Hydrocodone Bitart/Apap 5-325 [[place] 5/325] 1 - 2 tab PO Q4H PRN PRN 3 Days #20 tab 05/05/17 Calcium Carbonate/Vitamin D3 [Calcium 600 with Vit D Chew Tb] 1 each PO BID 05/12/17 Citalopram [Celexa] 20 mg PO QHS 05/12/17 Multivit with Calcium,Iron,Min [Multiple Vitamins For Women] 1 each PO DAILY 05/12/17 Naproxen Sodium [Aleve] 440 mg PO DAILY 05/12/17 Aspirin 325 mg PO DAILY 30 Days #30 tab 05/17/17 Clindamycin [Cleocin] 300 mg PO TID 2 Days #12 cap 05/17/17 The following prescriptions were given: Aspirin 325 mg PO DAILY 30 Days #30 tab Clindamycin [Cleocin] 300 mg PO TID 2 Days #12 cap Primary Care Physician: Akbar Farias MD [Primary Care Provider] - Please Follow Up With: Janes Avalos DPM When: within 1 week, or sooner if needed.
[2017-05-17 09:00] VITALS: O2SAT 94
--- NOTE | 2017-05-17 11:11 | NURSING ---
pt unable on ra to maintain pox at 90 or above when she drifts off to sleep, pox drops to low 80s. sleep study was recommended to pt since she has never had one. dr davis updated.
[2017-05-17] MEDS: HYDROcodone Bitartrate/Apap 5/325 Tablet PO ×2 (12:38→17:54)
[2017-05-17 14:00] VITALS: BP 137/65; PULSE 87; RESP 14; TEMP 37; O2SAT 92
--- NOTE | 2017-05-17 17:46 | SLEEP ---
I spoke with LEGAL TRANSCRIBER Kendal Chan regarding Sleep Disordered Breathing Evaluation. The patient screen positive high risk for JONI upon admission with documented loud snore and hypertension. During this inpatient visit, it was noted that her SaO2 desaturates with sleep. We do not have an order for outpatient sleep testing at this time. It was recommended that patient follow up with her PCP to discuss risk of sleep apnea for consideration of outpatient sleep study order/referral. I forwarded this information to Dr. Farias who is listed as her PCP for follow up as well.
--- NOTE | 2017-05-17 18:32 | PCM.DC ---
- Discharge Diagnoses Current Active Problems: Current Active and Chronic Problems (Last Reviewed 03/02/17 @ 14:08 by Erin Gibbons) Hypothyroidism (Chronic) Type 2 diabetes mellitus (Chronic) Hypertension (Chronic) You will use the following diet at home:: Calorie/Carbohydrate Controlled (specify 1200, 1400, etc), Other - Resume previous diet Your food should be the consistency of: Regular Your liquids should be the consistency of: Regular/Thin Discharge Activity: May Not Drive Weight Bearing Status: No weight bearing - Strict nonweightbearing right foot Keep extremity elevated above heart level: Right Leg - Keep right foot elevated using pillows for at least 50 minutes of every hour Call your doctor if your incision/area has: Continuous Slow Oozing, Sudden Increased Bleeding, Increased Redness, Foul Smelling Discharge Call your doctor if you observe: Fever of 101 or Higher, Coldness, Increased Pain, Shortness of breath, Chest pain, Increased palpitations (irregular heartbeat), Calf discomfort, Uncontrolled pain Cleanse incision/area with: Do not get Incision Wet, Keep Dressing Clean & Dry Additional Instructions: You can take the Alleve (Naproxen) twice a day. Take it with food. This will help to decrease inflammation and it is also a pain reliever. I would take the vicodin([place]) every 4 hours for the next 3 days and after that you can take it 1-2 tabs every 4 hours as needed for pain. Your diabetes is very well controlled. The HGBA1C is 6.2 and that is excellent! Narcotics can make you very constipated. If this happens start a stool softener. a good one is Miralzx because you can mix it in juice or water and it has no taste. Allergies/Adverse Reactions: Allergies Penicillins [PCN] Allergy (Severe, Verified 05/12/17 14:18) Hives Medications to take at Discharge Atorvastatin Calcium [Lipitor] 40 mg PO QHS 06/02/16 Levothyroxine [Synthroid] 112 mcg PO DAILY 06/02/16 Metformin HCl [Glucophage] 500 mg PO QHS 06/02/16 Niacin [Niaspan] 1,000 mg PO QHS 06/02/16 Pramipexole Di-HCl [Mirapex] 0.5 mg PO BID 06/02/16 Losartan Potassium [Cozaar] 50 mg PO DAILY 08/03/16 Omeprazole [Prilosec] 40 mg PO DAILY 08/03/16 Calcium Carbonate/Vitamin D3 [Calcium 600 with Vit D Chew Tb] 1 each PO BID 05/12/17 Citalopram [Celexa] 20 mg PO QHS 05/12/17 Multivit with Calcium,Iron,Min [Multiple Vitamins For Women] 1 each PO DAILY 05/12/17 Aspirin 325 mg PO DAILY 30 Days #30 tab 05/17/17 Aspirin 325 mg PO DAILY@0800 tablet 05/17/17 Clindamycin [Cleocin] 300 mg PO TID 2 Days #12 cap 05/17/17 Hydrocodone Bitart/Apap 5-325 [[place] 5/325] 2 tab PO UD 7 Days #40 tab 05/17/17 Naproxen Sodium [Aleve] 440 mg PO BID #60 tab 05/17/17 The following prescriptions were given: Aspirin 325 mg PO DAILY 30 Days #30 tab Hydrocodone Bitart/Apap 5-325 [[place] 5/325] 2 tab PO UD 7 Days #40 tab Clindamycin [Cleocin] 300 mg PO TID 2 Days #12 cap Primary Care Physician: Akbar Farias MD [Primary Care Provider] - Please follow up with your Primary Care Physician in: 10-14 days Please Follow Up With: Janes Avalos DPM When: within 1 week, or sooner if needed. Proposed Discharge Date: 05/17/17
--- NOTE | 2017-05-17 18:39 | DCINST_ITS ---
- Discharge Diagnoses Current Active Problems: Current Active and Chronic Problems (Last Reviewed 03/02/17 @ 14:08 by Erin Gibbons) Hypothyroidism (Chronic) Type 2 diabetes mellitus (Chronic) Hypertension (Chronic) You will use the following diet at home:: Calorie/Carbohydrate Controlled ( specify 1200, 1400, etc), Other - Resume previous diet Your food should be the consistency of: Regular Your liquids should be the consistency of: Regular/Thin Discharge Activity: May Not Drive Weight Bearing Status: No weight bearing - Strict nonweightbearing right foot Keep extremity elevated above heart level: Right Leg - Keep right foot elevated using pillows for at least 50 minutes of every hour Call your doctor if your incision/area has: Continuous Slow Oozing, Sudden Increased Bleeding, Increased Redness, Foul Smelling Discharge Call your doctor if you observe: Fever of 101 or Higher, Coldness, Increased Pain, Shortness of breath, Chest pain, Increased palpitations (irregular heartbeat), Calf discomfort, Uncontrolled pain Cleanse incision/area with: Do not get Incision Wet, Keep Dressing Clean & Dry Additional Instructions: You can take the Alleve (Naproxen) twice a day. Take it with food. This will help to decrease inflammation and it is also a pain reliever. I would take the vicodin([place]) every 4 hours for the next 3 days and after that you can take it 1-2 tabs every 4 hours as needed for pain. Your diabetes is very well controlled. The HGBA1C is 6.2 and that is excellent! Narcotics can make you very constipated. If this happens start a stool softener. a good one is Miralzx because you can mix it in juice or water and it has no taste. Allergies/Adverse Reactions: Allergies Penicillins [PCN] Allergy (Severe, Verified 05/12/17 14:18) Hives Medications to take at Discharge Atorvastatin Calcium [Lipitor] 40 mg PO QHS 06/02/16 Levothyroxine [Synthroid] 112 mcg PO DAILY 06/02/16 Metformin HCl [Glucophage] 500 mg PO QHS 06/02/16 Niacin [Niaspan] 1,000 mg PO QHS 06/02/16 Pramipexole Di-HCl [Mirapex] 0.5 mg PO BID 06/02/16 Losartan Potassium [Cozaar] 50 mg PO DAILY 08/03/16 Omeprazole [Prilosec] 40 mg PO DAILY 08/03/16 Calcium Carbonate/Vitamin D3 [Calcium 600 with Vit D Chew Tb] 1 each PO BID 10/22 Citalopram [Celexa] 20 mg PO QHS 05/12/17 Multivit with Calcium,Iron,Min [Multiple Vitamins For Women] 1 each PO DAILY 10/22 Aspirin 325 mg PO DAILY 30 Days #30 tab 05/17/17 Aspirin 325 mg PO DAILY@0800 tablet 05/17/17 Clindamycin [Cleocin] 300 mg PO TID 2 Days #12 cap 05/17/17 Hydrocodone Bitart/Apap 5-325 [[place] 5/325] 2 tab PO UD 7 Days #40 tab 05/17/17 Naproxen Sodium [Aleve] 440 mg PO BID #60 tab 05/17/17 The following prescriptions were given: Aspirin 325 mg PO DAILY 30 Days #30 tab Hydrocodone Bitart/Apap 5-325 [[place] 5/325] 2 tab PO UD 7 Days #40 tab Clindamycin [Cleocin] 300 mg PO TID 2 Days #12 cap Primary Care Physician: Akbar Farias MD [Primary Care Provider] - Please follow up with your Primary Care Physician in: 10-14 days Please Follow Up With: Janes Avalos DPM When: within 1 week, or sooner if needed. Proposed Discharge Date: 05/17/17
--- NOTE | 2017-05-17 18:39 | PCM.DC.SUM ---
Discharge Date and Diagnosis - Problem List Patient Problems: Active and Suspected Problems (Last Reviewed 03/02/17 @ 14:08 by Erin Gibbons) Sleep-disordered breathing (Acute) Status post open reduction with internal fixation (ORIF) of fracture of ankle (Acute) Trimalleolar fracture of right ankle (Acute) Date of Admission: 05/16/17 Date of Discharge: 05/17/17 - Primary Discharge Diagnosis Active and Suspected Problems (Last Reviewed 03/02/17 @ 14:08 by Erin Gibbons) Status post open reduction with internal fixation (ORIF) of fracture of ankle (Acute) Trimalleolar fracture of right ankle (Acute) Sleep disordered breathing - hypoxia with sleeping - Secondary Discharge Diagnosis Chronic Problems (Last Reviewed 03/02/17 @ 14:08 by Erin Gibbons) Hypothyroidism (Chronic) Type 2 diabetes mellitus (Chronic) Hypertension (Chronic) History of right breast cancer (Chronic) Ductal carcinoma of breast (Chronic) Hospital Course and Treatment Imaging Results: Clinical Impression(s) from Imaging Studies Chest X-Ray 05/16/17 11:15 IMPRESSION: 9 mm nodule in the mid right lung. CT scan recommended. Electronically Signed: Charlie Lynn MD at 11:48 EDT , Service support , Ankle X-Ray 05/16/17 13:00 Ankle X-Ray 05/16/17 16:10 IMPRESSION: Status post ORIF and casting distal tibial and fibular fractures Electronically Signed: Janes Jett MD at 20:06 EDT , Service support , Laboratory Tests 05/12/17 05/16/17 05/16/17 10:00 12:08 16:17 WBC RBC Hgb Hct MCV MCH MCHC RDW RDW Differential Plt Count MPV Immature Gran % (Auto) Neut % (Auto) Lymph % (Auto) [place] % (Auto) Eos % (Auto) Baso % (Auto) Absolute Neuts (auto) Absolute Lymphs (auto) Total Counted PT INR Sodium Potassium Chloride Carbon Dioxide Anion Gap BUN Creatinine Estim Creat Clear Calc Est GFR (MDRD) Af Amer Est GFR (MDRD) Non-Af BUN/Creatinine Ratio Glucose Hemoglobin A1c 6.2 Calcium Free T4 Thyroxine (T4) Free T3 pg/dL POC Glucose 121 H 123 H 05/16/17 05/17/17 05/17/17 19:15 05:04 05:04 WBC 9.2 RBC 3.29 L Hgb 10.2 L Hct 31.1 L MCV 94.5 MCH 31.0 MCHC 32.8 RDW 13.9 RDW Differential 48.0 H Plt Count 233 MPV 9.4 Immature Gran % (Auto) 0.200 Neut % (Auto) 74.1 H Lymph % (Auto) 13.8 L [place] % (Auto) 11.3 H Eos % (Auto) 0.4 Baso % (Auto) 0.2 Absolute Neuts (auto) 6.8 Absolute Lymphs (auto) 1.27 Total Counted Not Reportable PT INR Sodium 141 Potassium 3.9 Chloride 105 Carbon Dioxide 27.0 Anion Gap 9 BUN 13 Creatinine 0.88 Estim Creat Clear Calc 57.35 Est GFR (MDRD) Af Amer 83 Est GFR (MDRD) Non-Af 68 BUN/Creatinine Ratio 14.8 Glucose 127 H Hemoglobin A1c Calcium 8.0 L Free T4 1.04 Thyroxine (T4) 9.7 Free T3 pg/dL 2.0 L POC Glucose 05/17/17 05:04 WBC RBC Hgb Hct MCV MCH MCHC RDW RDW Differential Plt Count MPV Immature Gran % (Auto) Neut % (Auto) Lymph % (Auto) [place] % (Auto) Eos % (Auto) Baso % (Auto) Absolute Neuts (auto) Absolute Lymphs (auto) Total Counted PT 13.6 INR 1.0 Sodium Potassium Chloride Carbon Dioxide Anion Gap BUN Creatinine Estim Creat Clear Calc Est GFR (MDRD) Af Amer Est GFR (MDRD) Non-Af BUN/Creatinine Ratio Glucose Hemoglobin A1c Calcium Free T4 Thyroxine (T4) Free T3 pg/dL POC Glucose Dr. Damaso Avalos - Podiatry Operations: - - ORIF of right ankle Trimalleolar fracture 05/16/[address] Avalos Procedures: None Summary of Care Provided: Patient is a 67-year-old female with past medical history of hypothyroidism, diabetes mellitus type 2, hypertension, right breast cancer and trimalleolar fracture of the right ankle on 05/05/2017. She had open reduction internal fixation on 05/16/[address] Avalos. She was admitted to the hospital for pain control at the request of Dr. Avalos. She was afebrile for the duration of her hospital stay. Blood pressures were initially elevated but came down nicely with pain control. Tachycardia also resolved with pain control. She had lab done on the date of discharge that showed a normal white blood cell count at 9.2, decreased hemoglobin at 10.2 and platelets of 231,000. MCV and MCH were within normal limits and the RDW was also normal. BMP was unremarkable. Hemoglobin A1c was 6.2 recently. Free T4 was normal. She was initially getting 10 mg of Oxy IR every 4 hours as needed for pain but, she di not feel the Oxy IR worked as well as the [place] she was taking at home for pain. Oxy IR was discontinued and she was started on [place] 5/325 mg 2 tabs every 4 hours while awake and this adequately controlled her pain without the need for IV narcotics. She will take scheduled [place] for the next 3 days and then convert to PRN. Naproxen was increased to 440 mg Twice daily with food. She has a knee walker and will be non-weight bearing on the RLE. When she was sleeping she was observed having apneic periods and the pulse ox dropped into the low 80's at times. She has never had a sleep study. I discussed this with the systems requirements planner to see if we could get home O2 for sleep until she can get an OP PSG. she called the insurance company and was informed insurance will not cover this. She will follow up with Dr. Farias and discuss referral for an OP PSG. She will follow up with Dr. Farias in 10-[address] Avalos in 1 week, sooner if she has uncontrolled pain, bleeding or fevers. This note was generated with [employer] dictation software. It may contain incorrect words, spelling, and punctuation that were not noted in checking the note before signing. Discharge Activity: May Not Drive Weight Bearing Status: No weight bearing - Strict nonweightbearing right foot Keep extremity elevated above heart level: Right Leg - Keep right foot elevated using pillows for at least 50 minutes of every hour Call your doctor if your incision/area has: Continuous Slow Oozing, Sudden Increased Bleeding, Increased Redness, Foul Smelling Discharge Call your doctor if you observe: Fever of 101 or Higher, Coldness, Increased Pain, Shortness of breath, Chest pain, Increased palpitations (irregular heartbeat), Calf discomfort, Uncontrolled pain Cleanse incision/area with: Do not get Incision Wet, Keep Dressing Clean & Dry Home Medications: Medications to take at Discharge Atorvastatin Calcium [Lipitor] 40 mg PO QHS 06/02/16 Levothyroxine [Synthroid] 112 mcg PO DAILY 06/02/16 Metformin HCl [Glucophage] 500 mg PO QHS 06/02/16 Niacin [Niaspan] 1,000 mg PO QHS 06/02/16 Pramipexole Di-HCl [Mirapex] 0.5 mg PO BID 06/02/16 Losartan Potassium [Cozaar] 50 mg PO DAILY 08/03/16 Omeprazole [Prilosec] 40 mg PO DAILY 08/03/16 Calcium Carbonate/Vitamin D3 [Calcium 600 with Vit D Chew Tb] 1 each PO BID 05/12/17 Citalopram [Celexa] 20 mg PO QHS 05/12/17 Multivit with Calcium,Iron,Min [Multiple Vitamins For Women] 1 each PO DAILY 05/12/17 Aspirin 325 mg PO DAILY 30 Days #30 tab 05/17/17 Aspirin 325 mg PO DAILY@0800 tablet 05/17/17 Clindamycin [Cleocin] 300 mg PO TID 2 Days #12 cap 05/17/17 Hydrocodone Bitart/Apap 5-325 [[place] 5/325] 2 tab PO UD 7 Days #40 tab 05/17/17 Naproxen Sodium [Aleve] 440 mg PO BID #60 tab 05/17/17 Following Prescrptions Were Given to Patient: Aspirin 325 mg PO DAILY 30 Days #30 tab Hydrocodone Bitart/Apap 5-325 [[place] 5/325] 2 tab PO UD 7 Days #40 tab Clindamycin [Cleocin] 300 mg PO TID 2 Days #12 cap Primary Care Physician: Akbar Farias MD [Primary Care Provider] - Please follow up with your Primary Care Physician in: 10-14 days Please Follow Up With: Janes Avalos DPM When: within 1 week, or sooner if needed. Minutes spent on discharge:: 30 Patient Condition:: Good Meaningful Use Info Meaningful Use Diagnoses (Choose all that apply): None applicable Code Visit OBSV E&M: 20937 Observation care discharge
--- NOTE | 2017-05-17 18:55 | DS.PCM_ITS ---
Discharge Date and Diagnosis - Problem List Patient Problems: Active and Suspected Problems (Last Reviewed 03/02/17 @ 14:08 by Erin Gibbons) Sleep-disordered breathing (Acute) Status post open reduction with internal fixation (ORIF) of fracture of ankle ( Acute) Trimalleolar fracture of right ankle (Acute) Date of Admission: 05/16/17 Date of Discharge: 05/17/17 - Primary Discharge Diagnosis Active and Suspected Problems (Last Reviewed 03/02/17 @ 14:08 by Erin Gibbons) Status post open reduction with internal fixation (ORIF) of fracture of ankle ( Acute) Trimalleolar fracture of right ankle (Acute) Sleep disordered breathing - hypoxia with sleeping - Secondary Discharge Diagnosis Chronic Problems (Last Reviewed 03/02/17 @ 14:08 by Erin Gibbons) Hypothyroidism (Chronic) Type 2 diabetes mellitus (Chronic) Hypertension (Chronic) History of right breast cancer (Chronic) Ductal carcinoma of breast (Chronic) Hospital Course and Treatment Imaging Results: Clinical Impression(s) from Imaging Studies Chest X-Ray 05/16/17 11:15 IMPRESSION: 9 mm nodule in the mid right lung. CT scan recommended. Electronically Signed: Charlie Lynn MD at 11:48 EDT , Service support , Ankle X-Ray 05/16/17 13:00 Ankle X-Ray 05/16/17 16:10 IMPRESSION: Status post ORIF and casting distal tibial and fibular fractures Electronically Signed: Janes Jett MD at 20:06 EDT , Service support , Laboratory Tests 05/12/17 05/16/17 05/16/17 10:00 12:08 16:17 WBC RBC Hgb Hct MCV MCH MCHC RDW RDW Differential Plt Count MPV Immature Gran % (Auto) Neut % (Auto) Lymph % (Auto) [place] % (Auto) Eos % (Auto) Baso % (Auto) Absolute Neuts (auto) Absolute Lymphs (auto) Total Counted PT INR Sodium Potassium Chloride Carbon Dioxide Anion Gap BUN Creatinine Estim Creat Clear Calc Est GFR (MDRD) Af Amer Est GFR (MDRD) Non-Af BUN/Creatinine Ratio Glucose Hemoglobin A1c 6.2 Calcium Free T4 Thyroxine (T4) Free T3 pg/dL POC Glucose 121 H 123 H 05/16/17 05/17/17 05/17/17 19:15 05:04 05:04 WBC 9.2 RBC 3.29 L Hgb 10.2 L Hct 31.1 L MCV 94.5 MCH 31.0 MCHC 32.8 RDW 13.9 RDW Differential 48.0 H Plt Count 233 MPV 9.4 Immature Gran % (Auto) 0.200 Neut % (Auto) 74.1 H Lymph % (Auto) 13.8 L [place] % (Auto) 11.3 H Eos % (Auto) 0.4 Baso % (Auto) 0.2 Absolute Neuts (auto) 6.8 Absolute Lymphs (auto) 1.27 Total Counted Not Reportable PT INR Sodium 141 Potassium 3.9 Chloride 105 Carbon Dioxide 27.0 Anion Gap 9 BUN 13 Creatinine 0.88 Estim Creat Clear Calc 57.35 Est GFR (MDRD) Af Amer 83 Est GFR (MDRD) Non-Af 68 BUN/Creatinine Ratio 14.8 Glucose 127 H Hemoglobin A1c Calcium 8.0 L Free T4 1.04 Thyroxine (T4) 9.7 Free T3 pg/dL 2.0 L POC Glucose 05/17/17 05:04 WBC RBC Hgb Hct MCV MCH MCHC RDW RDW Differential Plt Count MPV Immature Gran % (Auto) Neut % (Auto) Lymph % (Auto) [place] % (Auto) Eos % (Auto) Baso % (Auto) Absolute Neuts (auto) Absolute Lymphs (auto) Total Counted PT 13.6 INR 1.0 Sodium Potassium Chloride Carbon Dioxide Anion Gap BUN Creatinine Estim Creat Clear Calc Est GFR (MDRD) Af Amer Est GFR (MDRD) Non-Af BUN/Creatinine Ratio Glucose Hemoglobin A1c Calcium Free T4 Thyroxine (T4) Free T3 pg/dL POC Glucose Dr. Damaso Avalos - Podiatry Operations: - - ORIF of right ankle Trimalleolar fracture 05/16/[address] Avalos Procedures: None Summary of Care Provided: Patient is a 67-year-old female with past medical history of hypothyroidism , diabetes mellitus type 2, hypertension, right breast cancer and trimalleolar fracture of the right ankle on 05/05/2017. She had open reduction internal fixation on 05/16/[address] Avalos. She was admitted to the hospital for pain control at the request of Dr. Avalos. She was afebrile for the duration of her hospital stay. Blood pressures were initially elevated but came down nicely with pain control. Tachycardia also resolved with pain control. She had lab done on the date of discharge that showed a normal white blood cell count at 9.2, decreased hemoglobin at 10.2 and platelets of 231,000. MCV and MCH were within normal limits and the RDW was also normal. BMP was unremarkable. Hemoglobin A1c was 6.2 recently. Free T4 was normal. She was initially getting 10 mg of Oxy IR every 4 hours as needed for pain but, she di not feel the Oxy IR worked as well as the [place] she was taking at home for pain. Oxy IR was discontinued and she was started on [place] 5/325 mg 2 tabs every 4 hours while awake and this adequately controlled her pain without the need for IV narcotics. She will take scheduled [place] for the next 3 days and then convert to PRN. Naproxen was increased to 440 mg Twice daily with food. She has a knee walker and will be non-weight bearing on the RLE. When she was sleeping she was observed having apneic periods and the pulse ox dropped into the low 80's at times. She has never had a sleep study. I discussed this with the [employer] planners to see if we could get home O2 for sleep until she can get an OP PSG. she called the insurance company and was informed insurance will not cover this. She will follow up with Dr. Farias and discuss referral for an OP PSG. She will follow up with Dr. Farias in 10-[address] Avalos in 1 week, sooner if she has uncontrolled pain, bleeding or fevers. This note was generated with [employer] dictation software. It may contain incorrect words, spelling, and punctuation that were not noted in checking the note before signing. Discharge Activity: May Not Drive Weight Bearing Status: No weight bearing - Strict nonweightbearing right foot Keep extremity elevated above heart level: Right Leg - Keep right foot elevated using pillows for at least 50 minutes of every hour Call your doctor if your incision/area has: Continuous Slow Oozing, Sudden Increased Bleeding, Increased Redness, Foul Smelling Discharge Call your doctor if you observe: Fever of 101 or Higher, Coldness, Increased Pain, Shortness of breath, Chest pain, Increased palpitations (irregular heartbeat), Calf discomfort, Uncontrolled pain Cleanse incision/area with: Do not get Incision Wet, Keep Dressing Clean & Dry Home Medications: Medications to take at Discharge Atorvastatin Calcium [Lipitor] 40 mg PO QHS 06/02/16 Levothyroxine [Synthroid] 112 mcg PO DAILY 06/02/16 Metformin HCl [Glucophage] 500 mg PO QHS 06/02/16 Niacin [Niaspan] 1,000 mg PO QHS 06/02/16 Pramipexole Di-HCl [Mirapex] 0.5 mg PO BID 06/02/16 Losartan Potassium [Cozaar] 50 mg PO DAILY 08/03/16 Omeprazole [Prilosec] 40 mg PO DAILY 08/03/16 Calcium Carbonate/Vitamin D3 [Calcium 600 with Vit D Chew Tb] 1 each PO BID 10/22 Citalopram [Celexa] 20 mg PO QHS 05/12/17 Multivit with Calcium,Iron,Min [Multiple Vitamins For Women] 1 each PO DAILY 10/22 Aspirin 325 mg PO DAILY 30 Days #30 tab 05/17/17 Aspirin 325 mg PO DAILY@0800 tablet 05/17/17 Clindamycin [Cleocin] 300 mg PO TID 2 Days #12 cap 05/17/17 Hydrocodone Bitart/Apap 5-325 [[place] 5/325] 2 tab PO UD 7 Days #40 tab 05/17/17 Naproxen Sodium [Aleve] 440 mg PO BID #60 tab 05/17/17 Following Prescrptions Were Given to Patient: Aspirin 325 mg PO DAILY 30 Days #30 tab Hydrocodone Bitart/Apap 5-325 [[place] 5/325] 2 tab PO UD 7 Days #40 tab Clindamycin [Cleocin] 300 mg PO TID 2 Days #12 cap Primary Care Physician: Akbar Farias MD [Primary Care Provider] - Please follow up with your Primary Care Physician in: 10-14 days Please Follow Up With: Janes Avalos DPM When: within 1 week, or sooner if needed. Minutes spent on discharge:: 30 Patient Condition:: Good Meaningful Use Info Meaningful Use Diagnoses (Choose all that apply): None applicable Code Visit OBSV E&M: 59374 Observation care discharge
--- NOTE | 2017-05-17 19:32 | NURSING ---
1400-o2 reapplied at 1l again d/t pox dropping in low 80s on ra while pt is sleeping. maintains 89-92% while sleeping on 1l
== END 2017-05-17 19:20 | disposition home or self-care (01) ==
LOC: SDC 18:56 → MS2 18:57
PROVIDERS: Anesthesiology; Podiatrist; Admitting Provider Hospitalist; Family Provider Family Medicine; PCP Family Medicine; Visit Provider Internal Medicine
PROC: (CPT 27822; principal; 2017-05-16 12:40)
DX: S82.851A Displaced trimalleolar fracture of right lower leg, initial encounter for closed fracture (principal); W19.XXXA Unspecified fall, initial encounter; Y93.9 Activity, unspecified; Y92.9 Unspecified place or not applicable; Y99.9 Unspecified external cause status; E11.9 Type 2 diabetes mellitus without complications; E03.9 Hypothyroidism, unspecified; I10 Essential (primary) hypertension; E78.5 Hyperlipidemia, unspecified; F32.9 Major depressive disorder, single episode, unspecified; F41.9 Anxiety disorder, unspecified; K21.9 Gastro-esophageal reflux disease without esophagitis; G25.81 Restless legs syndrome; Z85.3 Personal history of malignant neoplasm of breast; Z79.899 Other long term (current) drug therapy; Z79.84 Long term (current) use of oral hypoglycemic drugs; Z92.21 Personal history of antineoplastic chemotherapy; Z92.3 Personal history of irradiation; Z79.82 Long term (current) use of aspirin
CPT/HCPCS: 01480; 27822; 36415; 71046; 73610; 76000; 80048; 82962; 83036; 84436; 84439; 84481; 85025; 85610; 96365; 96366; 96375; 97162; 97166; 99218; J3010; J7120; A4216; G0378; G0379; G8978; G8979; G8987; G8988; J2405

== ENCOUNTER → 2017-07-27 11:52 | Outpatient (CLI) | payer MEDICARE, SELFPAY ==
[2017-07-27 14:31] LABS: Thyroid Stim Hormone (TSH) 0.34 uIU/mL (0.358-3.74)
== END ==
PROVIDERS: Family Provider Family Medicine; PCP Family Medicine; Visit Provider Family Medicine
DX: E03.9 Hypothyroidism, unspecified (principal)
CPT/HCPCS: 36415; 84439; 84443

== ENCOUNTER → 2017-08-17 07:35 | Outpatient (CLI) | payer MEDICARE, SELFPAY ==
--- NOTE | 2017-08-17 07:40 | AAAS_ITS ---
Reason For Study: AAA screening Aorta Measurements Aorta Doppler Measurements Proximal aorta measures1.8 x 1.9cm. in cross- Peak systolic flow velocities within the proximal sectional axis. aorta measure 108.0 cm/sec. Proximal aorta measures1.8cm. in longitudinal Peak systolic flow velocities within the mid axis. aorta measure 101.0 cm/sec. Mid aorta measures1.6 x 1.7cm. in cross-sectionalPeak systolic flow velocities within the distal axis. aorta measure 81.2 cm/sec. Mid aorta measures1.5cm. in longitudinal axis. Distal aorta measures1.4 x 1.4cm. in cross- sectional axis. Distal aorta measures1.4cm. in longitudinal axis. Left Iliac Artery Left iliac artery measures .96 cm. in the longitudinal axis. Left iliac artery measures .96 x .96 cm. in the cross-sectional axis. Peak systolic velocity in the left iliac artery measures 120.0 cm/sec. Right Iliac Artery Right iliac artery measures 1.0 cm. in the longitudinal axis. Right iliac artery measures 1.0 x 1.0 cm. in the cross-sectional axis. Peak systolic velocity in the right iliac artery measures 122.0 cm/sec. Procedure Aorta IVC Iliac vasculature or bypass grafts 18623. Exam performed in department. Interpretation Summary The dimensions of the intra-abdominal aorta are normal, without evidence of aneurysmal dilatation. The iliac arteries are also normal in size. The intra-abdominal aorta and iliac arteries are patent, demonstrating normal, pulsatile arterial flow and normal peak systolic velocities. Ordering Physician: Teodoro Farias Referring Physician: Akbar Farias Performed By: Shabana Arias RVT
== END ==
PROVIDERS: Family Provider Family Medicine; PCP Family Medicine; Visit Provider Family Medicine
DX: Z13.6 Encounter for screening for cardiovascular disorders (principal)
CPT/HCPCS: 76706

== ENCOUNTER 2017-09-20 12:30 | Outpatient (RCR) | payer MEDICARE, SELFPAY ==
--- NOTE | 2017-08-23 16:31 | HP.PTEVAL_ITS ---
Patient's Visit Information TORY TSANG is a 67 year old F referred to Physical Therapy by Janes Avalos with a diagnosis of R ankle fx, s/p ORIF 05/16/17. Date of Evaluation: 08/23/17 Physical Therapist: Elijah Rosales PT, - Visit Plan Frequency: 1x/Week Duration: 4 Weeks Plan: Focus on restoring DF ROM, progressive CKC strengthening, and progressive balance activities. She would like to resume biking/walking this summer. - Subjective Subjective: Pt is a 67 y/o female s/p R ORIF 05/16/17. She suffered a trimalleolar fx on 05/05/17 when she fell on grass. She was NWB for 8 weeks after surgery with kneeeling scooter.. She was in the CAM boot for 4 weeks after with PWB right ankle that and now in a brace. She is able to walk about an hour before having to rest due to pain. She was given AROM exercises by the surgeon. She will note some increasing soreness. OCCUPATION/HOBBIES: Retired. Likes to ride bike and walk. - Pain R ankle Pain Intensity (Out of 10): 2 - Objective OBSERVATION: Incision well healed with good mobility. Pes cavus bilaterally. CIRCUMFERENCE: figure 8 R 51 cm, L 49.5 cm. GAIT: R toe out, wearing ankle brace. ROM: R ankle DF -2, PF 30, IV 30, EV 22. L ankle DF 8, PF 48, EV 22, IV 32. ASSESSORY MOTION: R STJ med/lat glides normal. R TC posterior glide hypomobile. STRENGTH: Gross B ankle strength 5/5. B hip abd 4+/5. BALANCE: Tandem stance: unable to hold >5 seconds bilaterally. - Goals Goal 1:: Pt will demonstrate at least 15 degrees of ankle DF bilaterally to normalize gait mechanics. Goal Time Frame: 4-6 Weeks Goal 2:: Pt will ascend/descend a flight of 7-8 inch stairs with reciprocal gait pattern to normalize stair negotiation. Goal Time Frame: 4-6 Weeks Goal 3:: Pt will report at least 25% improvement on LEFS score to show true change in functional status and to improve QOL. Goal Time Frame: 4-6 Weeks Goal 4:: Pt will be independent with HEP to sustain gains made in the clinic. Goal Time Frame: 4-6 Weeks - Rehabilitation Potential Physical Therapy Diagnosis: Pt is 67 y/o female s/p R ankle ORIF on 05/16/17. She suffered a trimalleolar fx on 05/05/17 from a slip on the grass. She is WBAT now and has progressed to a shoe with brace. She is having little pain and is tolerating weight bearing well. Objective testing reveals a loss of passive dorsiflexion and poor proprioception. She is having activity limitations that include difficulty ambulating long distances and descending stairs. This affects her participation with her usual hobbies. Pt will benefit from skilled PT to address the mentioned impairments to maximize function. Rehabilitation Potential: Excellent - Anticipated Interventions Patient/Client Instruction: Educate patient on: Condition, Plan of Care For the Purpose of:: To decrease pain, To increase ROM, To improve muscle performance and motor function, To increase tolerance to activity/condition/ position, To improve ability of physical actions for home/community/work/leisure , To improve gait and locomotor functions, To improve health of tissue, To decrease soft tissue restriction, To increase flexibility/ROM, To improve endurance, To improve balance, To improve self management, To prevent re-injury Therapeutic Exercise to Include: Strength training, Endurance training, Balance training, Flexibilty training, Gait and locomotor training, Passive ROM, Active ROM For the Purpose of:: To decrease pain, To increase ROM, To improve muscle performance and motor function, To increase tolerance to activity/condition/ position, To improve ability of physical actions for home/community/work/leisure , To improve gait and locomotor functions, To improve health of tissue, To decrease soft tissue restriction, To increase flexibility/ROM, To improve endurance, To improve balance, To improve safety with gait, To reduce risk of recurrence, To improve self management, To prevent re-injury Manual Therapy Techniques to Include: Mobilization For the Purpose of:: To decrease pain, To increase ROM, To improve muscle performance and motor function, To increase tolerance to activity/condition/ position, To improve ability of physical actions for home/community/work/leisure , To improve gait and locomotor functions, To improve health of tissue, To decrease soft tissue restriction, To increase flexibility/ROM, To improve endurance, To improve balance, To improve safety with gait, To reduce risk of recurrence, To improve self management, To prevent re-injury Functional electric stimulation: Yes TENS: Yes Other electric stimulation: Yes Cryotherapy (ice pack, ice massage): Yes Thermo therapy (hot pack): Yes For the Purpose of:: To decrease pain, To increase ROM, To improve health of tissue, To decrease soft tissue restriction, To increase flexibility/ROM, To improve endurance, To improve balance Thank you for the opportunity to evaluate your patient. For Medicare and Medicare HMO plans, please review the plan of care and approve it. It will need to be FAXED BACK to us at [phone] for Medicare purposes. Please let me know if there are questions or concerns regarding this plan of care. Physician Signature: Date:
--- NOTE | 2017-09-20 13:00 | HP.PTDCSUM_ITS ---
HP - PT D/C Summary It has been my pleasure to treat TORY TSANG under orders from Janes Avalos, for the diagnosis of R ankle fx, s/p ORIF 05/16/17 for a total of 5 visit(s). Discharge Date: 09/20/17 Please see the following information for a summary of their discharge status. - Subjective Subjective: Doing well .. no pain. Return to prior level of function normal john - Pain R ankle Pain Intensity (Out of 10): 0 - Overall Improvement % Improvement: 80 - Objective Objective/Function: POSTURE: WFL. GAIT:normal john. AROM: ankle DF 5 degrees,PF 60 degrees,IN 35degrees,EV 5degrees. MMT: ankle 4/5 except 4-/5 G- S. PROPRIOCEPTION: intact left to right - Goals Goal 1:: Pt will demonstrate at least 15 degrees of ankle DF bilaterally to normalize gait mechanics. Goal Progress: Goal Met Goal 2:: Pt will ascend/descend a flight of 7-8 inch stairs with reciprocal gait pattern to normalize stair negotiation. Goal Progress: Goal Met Goal 3:: Pt will report at least 25% improvement on LEFS score to show true change in functional status and to improve QOL. Goal Progress: Goal Met Goal 4:: Pt will be independent with HEP to sustain gains made in the clinic. Goal Progress: Goal Met - Plan Plan: D/C TO HEP - D/C Information Discharge Comments: HEP If there are questions or concerns regarding this patient's physical therapy, please feel free to call me at [phone]. Thank you for the referral of this patient. Sincerely, Elijah Rosales, PT,
== END 2017-09-20 19:00 | disposition home or self-care (01) ==
LOC: PT 12:30
PROVIDERS: Family Provider Family Medicine; PCP Family Medicine; Visit Provider Podiatrist
DX: Z98.890 Other specified postprocedural states (principal)
CPT/HCPCS: 97110; 97162

== ENCOUNTER → 2017-10-27 09:43 | Outpatient (CLI) | payer MEDICARE, SELFPAY ==
[2017-10-27 12:35] LABS: AST(SGOT) 24 U/L (15-37); Alanine Aminotransfer ALT/SGPT 38 U/L (13-56); Albumin, Serum 3.8 g/dL (3.2-5.0); Alkaline Phosphatase 148 U/L (45-117); Anion Gap 11 (5-15); BUN 16 mg/dL (7-18); BUN/Creat Ratio 18.8 RATIO (10-20); Calcium,Total 8.9 mg/dL (8.5-10.1); Chloride 105 mmol/L (98-107); Cholesterol 192 mg/dL (200); Creatinine, Serum 0.85 mg/dL (0.55-1.02); EST Glomerular Filtration Rate 71 mL/min (>60); Est Glom Filt Rate - Afr Amer 86 mL/min (>60); Globulin 3.7 g/dL (2.2-4.2); Glucose 111 mg/dL (74-106); High Density Lipoprotein 48 mg/dL; Potassium 4.1 mmol/L (3.5-5.1); Protein, Total 7.5 g/dL (6.4-8.2); Sodium Level 140 mmol/L (136-145); T4 Free Direct 1.11 ng/dL (0.76-1.46); Triglycerides 290 mg/dL; Very Low Density Lipoprotein 58 mg/dL (5-40)
== END ==
PROVIDERS: Family Provider Family Medicine; PCP Family Medicine; Visit Provider Family Medicine
DX: E11.9 Type 2 diabetes mellitus without complications (principal); E03.9 Hypothyroidism, unspecified
CPT/HCPCS: 36415; 80053; 80061; 84439; 84443

== ENCOUNTER → 2017-12-08 20:00 | Outpatient (CLI) | payer MEDICARE, SELFPAY | PROVIDERS: Family Provider Family Medicine; PCP Family Medicine; Visit Provider Family Medicine | DX: G47.33 Obstructive sleep apnea (adult) (pediatric) (principal) | CPT/HCPCS: 95810 ==

== ENCOUNTER → 2018-03-22 12:58 | Outpatient (CLI) | payer MEDICARE, SELFPAY ==
--- NOTE | 2018-03-22 13:02 | BI_ITS ---
MAMMOGRAPHY - UNILATERAL DIAGNOSTIC: LEFT BREAST REASON FOR EXAM: Female, 67 years old. Prior right mastectomy and radiation treatment. PERTINENT HISTORY: Personal history of breast cancer. TECHNIQUE: Digital unilateral breast laly (3D mammographic acquisition) in the CC and MLO projections. 2-D mediolateral oblique (MLO) and craniocaudad (CC) views of both breasts were obtained. CAD: Full Field Digital Mammography with Computer Added Detection was performed. COMPARISON: Comparison is made with prior study dated January 25, 2017 and January 23, 2016. FINDINGS: Breast Composition: The breasts are heterogeneously dense, which may obscure small masses. There are no dominant masses or suspicious calcifications. No other significant abnormalities are identified. There has been no significant change since the prior study. BI/UNILAT LT SCRN W/CAD IMPRESSION: Stable unilateral diagnostic mammogram. One year follow-up mammogram recommended. (A) ASSESSMENT CATEGORY: BIRADS Category 1: Negative. A letter regarding these results will be sent to the patient by the facility within 30 days. Approximately 10% of breast cancers are not detected by mammography. A normal mammogram should not delay biopsy of a clinically suspicious abnormality. Electronically Signed: Doug Kennedy MD at 14:17 EST Tel [phone], Service support ,
--- OUTSIDE RECORDS SUMMARY | 2018-05-27 09:19 | XMS RPT_ITS ---
:1950 Author Organization OHIP Support Name Relationship Address Phone EFREN TSANG Unavailable [address] + [address] [place] [address] R Unavailable Unavailable Unavailable EFREN TSANG Unavailable [address] + [address] [place] [address] R Unavailable Unavailable Unavailable EFREN TSANG Unavailable [address] + [address] [place] [address] R Unavailable Unavailable Unavailable EFREN TSANG Unavailable [address] + [address] [place] [address] R Unavailable Unavailable Unavailable EFREN TSANG Unavailable [address] [phone] [place] [address] R Unavailable Unavailable Unavailable EFREN TSANG Unavailable [address] [phone] [place] [address] R Unavailable Unavailable Unavailable EFREN TSANG Unavailable [address] + [address] [place] [address] R Unavailable Unavailable Unavailable EFREN TSANG Unavailable [address] [phone] [place] [address] R Unavailable Unavailable Unavailable EFREN TSANG Unavailable [address] [phone] [place] [address] R Unavailable Unavailable Unavailable EFREN TSANG Unavailable [address] [phone] [place] [address] R Unavailable Unavailable Unavailable EFREN TSANG Unavailable [address] [phone] [place] [address] R Unavailable Unavailable Unavailable EFREN TSANG Unavailable [address] [phone] [place] [address] R Unavailable Unavailable Unavailable EFREN TSANG Unavailable [address] [phone] [place] [address] R Unavailable Unavailable Unavailable EFREN TSANG Unavailable [address] [phone] [place] [address] R Unavailable Unavailable Unavailable Care Team Providers Name Role Phone Noy Jean Baptiste Attending Unavailable Noy Jean Baptiste Referring Unavailable Ranney, Christopher Primary Care Unavailable ItaNoy hoover Attending Unavailable [facility] Unavailable Ranney, Christopher Primary Care Unavailable José Chacon Attending Unavailable Robbie, Janes Attending Unavailable Ranney, Christopher Primary Care Unavailable Wunning, Janes Referring Unavailable Ranney, Christopher Primary Care Unavailable Otisnning, Janes Consulting Unavailable Ashelfah, Ghasem Admitting Unavailable Sementi, Eloina Attending Unavailable Dinora, Teodoro Attending Unavailable Ranney, Christopher Primary Care Unavailable Ashelfah, Cliffordm Attending Unavailable Otisnning, Janes Referring Unavailable Ranney, Christopher Primary Care Unavailable Wunning, Janes Consulting Unavailable Ashelfah, Ghasem Admitting Unavailable Sementi, Eloina Attending Unavailable Otisnning, Janes Referring Unavailable Ranney, Christopher Primary Care Unavailable Wunning, Jaens Consulting Unavailable Sementi, Eloina Consulting Unavailable Abdonney, Fliper Attending Unavailable Ranney, Christopher Primary Care Unavailable Ranney, Fliper Attending Unavailable Ranney, Christopher Referring Unavailable Ranney, Christopher Primary Care Unavailable Robbie, Janes Attending Unavailable Ranney, Christopher Primary Care Unavailable Floyd Ahmadi Attending Unavailable Dinora, Teodoro Attending Unavailable Ranney, Christopher Primary Care Unavailable Ranney, Christcrystaler Attending Unavailable Ranney, Christopher Primary Care Unavailable PROBLEMS PROBLEMS DATE TYPE CONDITION / CODE ATTENDING STATUS SOURCE 12/08/2017 Unknown G47.33 - Obstructive Dinora, Active [place] sleep apnea (adult) [facility] (pediatric[facility] / Hospital G47.33(ICD-10) Repository 09/23/2017 Unknown Z98.890 - Other Janes Avalos Active [place] specified [facility] postprocedural Hospital states / Repository Z98.890(ICD-10) 08/17/2017 Unknown Z85.3 - Personal Noy Jean Baptiste Active [place] history of malignant Community neoplasm of breast / Hospital Z85.3(ICD-10) Repository 08/17/2017 Unknown C50.919 - Malignant Noy Jean Baptiste Active [place] neoplasm of Community unspecified site of Hospital unspecified female Repository breast / C50.919(ICD-10) 06/03/2017 Unknown S82.851A - Displaced Sementi, Active [place] trimalleolar [place] Community fracture of right Hospital lower leg, initial Repository encounter for closed fracture / S82.851A(ICD-10) 06/03/2017 Unknown Z96.7 - Presence of Sementi, Active [place] other bone and [place] Community tendon implants / Hospital Z96.7(ICD-10) Repository 05/06/2017 Unknown S82.891A - Other José Chacon Active [place] fracture of right [facility] lower leg, initial Hospital encounter for closed Repository fracture / S82.891A(ICD-10) PROCEDURES PROCEDURES No Procedure Records FoundRESULTS RESULTS UNILAT LT SCRN Observed: 03/22/2018 Status: F Source: [place] W/CAD 1:02 PM [facility] REPOSITORY [facility] Imaging Services [address] [place] [address] UNILAT LT SCRN W/CAD MR#: [id number] Acct: [id number] Name: TORY TSANG Rep #: [id number] : 1950 F 67 From: Doug Kennedy MD PCP: Teodoro Farias MD Status: REG CLI Study: UNILAT LT SCRN W/CAD Date of Exam: 03/22/18 Exam# [id number] Ordering Dr: Noy Jean Baptiste EXPLORATION DRILLER-C MAMMOGRAPHY - UNILATERAL DIAGNOSTIC: LEFT BREAST REASON FOR EXAM: Female, 67 years old. Prior right mastectomy and radiation treatment. PERTINENT HISTORY: Personal history of breast cancer. TECHNIQUE: Digital unilateral breast laly (3D mammographic acquisition) in the CC and MLO projections. 2-D mediolateral oblique (MLO) and craniocaudad (CC) views of both breasts were obtained. CAD: Full Field Digital Mammography with Computer Added Detection was performed. COMPARISON: Comparison is made with prior study dated January 25, 2017 and January 23, 2016. FINDINGS: Breast Composition: The breasts are heterogeneously dense, which may obscure small masses. There are no dominant masses or suspicious calcifications. No other significant abnormalities are identified. There has been no significant change since the prior study. BI/UNILAT LT SCRN W/CAD IMPRESSION: Stable unilateral diagnostic mammogram. One year follow-up mammogram recommended. (A) ASSESSMENT CATEGORY: BIRADS Category 1: Negative. A letter regarding these results will be sent to the patient by the facility within 30 days. Approximately 10% of breast cancers are not detected by mammography. A normal mammogram should not delay biopsy of a clinically suspicious abnormality. Electronically Signed: Doug Kennedy MD at 14:17 EST Tel [phone], Service support , CC: Teodoro Farias MD; Noy Jean Baptiste NP Heavy Forger Helper: Signed OPERATIVE REPORT Observed: 03/03/2018 Status: F Source: [place] 10:35 AM [facility] Medical Records Department [address] [place] [address] Operative Report 05/16/17 1555 MR#: [id number] Acct: [id number] Name: TORY TSANG Rep #: [id number] : 1950 67 From: Janes Avalos DPM PCP: Teodoro Farias MD Status: DIS MARISOL Y Location: [facility] [id number] ADDENDUM by Janes Avalos DPM on 03/03/18 at 1035 Code Visit There was noted to be very mild instability of the distal syndesmosis, therefore an Arthrex syndesmotic Tightrope was placed across the distal fibula and tibia to stabilize the tight rope. After this was completed, the distal ankle syndesmosis was stressed with a bone hook as well as with dorsiflexion external rotation stress test, and it was now noted be be stable with no gapping present or instability present. 03/03/18 1035 <Electronically signed by Janes Avalos DPM> Date Janes Avalos DPM cc: Teodoro Farias MD; Janes Avalos DPM * Signed Report of Operation Date of Procedure: 05/16/17 - Surgeon: Janes Avalos DPM Pre-Operative Diagnosis: Trimalleolus Ankle Fracture, Right Post-Operative Diagnosis: Same Surgery/Procedure Performed:: Open reduction internal fixation, right trimalleolus ankle fracture Description of Surgical Findings:: Trimalleolar ankle fracture state auditor: Yes - Dr. Mariam River Type of Anesthesia:: General, Spinal Specimen's removed: None Estimated Blood Loss (mL): 20mL Description of Procedure: Indications: This is a 67 year old female sustained a right trimalleolar ankle fracture on 05/05/17. Closed reduction was preformed by the Emergency Room physician. Pre operative xrays as well as CT scan were obtained and reviewed. There was trimalleolar ankle fracture with subluxation present, there was mild diastasis of the distal tib fib syndesmosis. Patient elected to proceed forward with open reduction internal fixation of the trimalleolar ankle fracture. The procedure was reviewed with her in detail. The rationale of the procedure was reviewed with her. The goals and the expectations were discussed and reviewed with her. The possible benefits vs risks and all potential complications were discussed and reviewed with the patient. The patient expressed understanding and agreement, and elected to proceed forward with the procedure. All of her questions were answered. The consent forms were reviewed with her and she freely signed them. No guarantees were given or implied. Operative Procedure: The patient was brought back to the operating room and was placed on the operating room table in the supine position. She did received spinal anesthesia per the anesthesia service. The patient was carefully secured to the operating room table with a safety belt around her waist. The patient received 900 milligrams of IV clindamycin for antibiotic prophylaxis. The anesthesia team decided to also give the patient general anesthesia as sensation was still intact to the right lower extremity following the spinal anesthesia. A well padded pneumatic tourniquet was applied around her right thigh. The right lower extremity was scrubbed, prepped, and draped in the usual aseptic fashion. The right foot/ankle was elevated for 3 minutes and the right thigh pneumatic tourniquet was inflated to 350mmHg. The ankle was noted to be unstable due to the trimalleolar fracture. There was noted to be a well healed fracture blister to the medial ankle. Using a 15 blade, a skin incision was made overlying the lateral malleolus. Careful dissection (combination of blunt and sharp) was completed down to the lateral malleolus fracture. The periosteum was left intact. It was noted the posterior aspect of the distal fracture fragment was comminuted. The fibula was brought out to length and was rotated back to normal position, it was stabilized with a bone clamp. An intra-fragment screw was not placed across the fracture site due to the comminution which was present. Rather the fracture was fixated using rigid open reduction internal fixation technique with 1 Arthrex a titanium distal fibular plate, which was applied across the fracture site using a total of five 2.7mm locking screws distally and three 3.5mm locking screws and one 3.5mm cortical screw proximally through the plate. The clamp was removed. There fracture was reduced, very stable, and in good position. This was confirmed visually as well as using intra operative fluoroscopy. Attention was directed to the medial malleolus. A skin incision was made overlying the medial malleolus using a 15 scalpel blade. Careful blunt dissection was completed down to the medial malleolus where the fracture was identified. There was soft tissue inter position between the fracture fragments. This was composed of periosteum. The periosteum was moved out from in between the fracture fragments and the medial malleolus was reduced back manually into normal position. The medial malleolus fracture site was fixated with two 4.0mm Arthrex cannulated screws. There fracture was reduced, stable, and in good position. This was confirmed visually as well as using intra operative fluoroscopy. There was noted to be very mild instability of the distal syndesmosis, and the . The distal ankle syndesmosis was stressed with a bone hook as well as with dorsiflexion external rotation stress test, and it was noted be be stable with no gapping present. At this time there was noted to be excellent stability to the ankle joint, range of motion was smooth and gliding normally. There was no popping, clicking, or crepitus present. Intraoperative fluoroscopy was used to check the site and it was noted fibular length and tib fib overlap was normal, ankle mortise with medial and lateral gutters in normal position/alignment with good positioning of the plate, screws, and tight rope. There was good bone to bone alignment of the fracture sites. There was excellent stability to the ankle / fracture site. The ankle was stressed under fluoroscopy and negative anterior drawer, normal talar tilt, no medial gutter gapping with external stress test, and no gapping or instability with Cotton test as noted above. The surgical site was flushed out with copious amounts of normal saline solution. The subcutaneous tissue was reapproximated using 2-0 and 3-0 Vicryl, and the skin was 3-0 Monocryl. 10mL of 0.55% Marcaine plain was given as a saphenous nerve block to aid post operative pain control. The incision sites and margins were painted with Cavilon and steri strips were applied. A dressing was applied which consisted of betadine soaked adaptic, 4x4 gauze, kerlix, webril, lisa bandages, and well padded below knee posterior splint. Prior to closure the tight pneumatic tourniquet was deflated and it was noted all hemostasis was achieved. There was immediate return of vascular flow to the foot/ankle, CFT < 2 seconds, and normal temperature present. Total tourniquet time was 79 minutes. Also of note, all vital structures, including all vital neurovascular and tendon structures were properly identified, protected and retracted as necessary. The patient tolerated the above procedure well and anesthesia well with no complications. The patient was transports to the recovery room in good condition and vital signs stable. The patient did receive a right lower extremity popliteal block per the anesthesiology service in the recovery room for post operative pain control. Post op orders were placed, no weightbearing right foot, keep right foot elevated. She will be admitted for post op pain control and observation. I spoke with hospitalist Dr. Thomas, who agreed. Patient will be followed as inpatient. Grafts/Implants Used: Arthrex fibular plate, Arthrex screws, Arthrex tightropes - Complications None 05/30/172126 <Electronically signed by Janes Avalos DPM> Date Janes Avalos DPM CC: Teodoro Farias MD; Janes Avalos DPM Signed COMPREHENSIVE METABOLIC Collected: 10/27/2017 Status: F Source: [place] 9:44 AM [facility] REPOSITORY Order Comment: Order Date: 10/27/17 Order Info: [id number] - CMP Order Info: [id number] - LIPID Order Info: [id number] - TSH Order Info: 3024-7 - T4F TYPE CODE TESTS RESULT OUT OF RANGE REFERENCE UNITS LAB L501.0100 74-106 mg/dL High GLU 111 Result Comment: Fasting Glucose result from 100 to 125 mg/dL suggests IMPAIRED HOMEOSTASIS per A.D.A. criteria. Please note revised GLUCOSE reference range effective 2017. LAB L501.1000 7-18 mg/dL Normal BUN 16 LAB L501.1100 0.55-1.02 mg/dL Normal CREAT,SERUM 0.85 Result Comment: The validity of the calculated GFR AND GFRAA in patients over 70 years has not been determined. Clinical correlation is essential. LAB L501.1110 >60 mL/min Normal EST GFR 71 Result Comment: Non- GFR Calc LAB L501.1115 >60 mL/min Normal EST GFR - AA 86 Result Comment: GFR Calc LAB L501.1300 10-20 RATIO Normal BUN/CRE 18.8 LAB L501.1500 6.4-8.2 g/dL T Normal PROT 7.5 LAB L501.1800 3.2-5.0 g/dL Normal ALB 3.8 LAB L501.1950 2.2-4.2 g/dL Normal GLOB 3.7 LAB L501.2000 0.9-2.4 RATIO Normal A/G 1.0 LAB L501.2200 8.5-10.1 mg/dL CA Normal 8.9 LAB L501.4100 15-37 U/L Normal AST 24 LAB L501.4305 45-117 U/L High ALK P 148 LAB L501.4405 13-56 U/L Normal ALT 38 LAB L501.4600 0.20-1.00 mg/dL T Normal BILI 0.40 LAB L501.5300 136-145 mmol/L NA Normal 140 LAB L501.5600 3.5-5.1 mmol/L K Normal 4.1 LAB L501.5900 98-107 mmol/L CL Normal 105 LAB L501.6100 21.0-32.0 mmol/L Normal CO2 24.0 LAB L501.6200 5-15 Normal GAP 11 Performed By: #### L500.4050, L500.4100, L501.9520, L506.0400 #### [facility] [address] [place], [place], [id number] LIPID PROFILE Collected: 10/27/2017 Status: F Source: [place] 9:44 AM [facility] REPOSITORY Order Comment: Order Date: 10/27/17 Order Info: [id number] - CMP Order Info: [id number] - LIPID Order Info: [id number] - TSH Order Info: 3024-7 - T4F TYPE CODE TESTS RESULT OUT OF RANGE REFERENCE UNITS LAB L501.4900 200 mg/dL Normal CHOL 192 Result Comment: <200 mg/dL Desirable 200-240 mg/dL Borderline >240 mg/dL High Risk LAB L501.5000 mg/dL High TRIG 290 Result Comment: The drugs N-Acetylcysteine and Metamizole may falsely depress this assay. Serum Triglycerides Reference Interval Normal <150 mg/dL Borderline high 150 - 199 mg/dL High 200 - 499 mg/dL Very High > or = 500 mg/dL LAB L501.6400 mg/dL Normal HDL 48 Result Comment: The drugs N-Acetylcysteine and Metamizole may falsely depress this assay. Reference Range HDL <40 mg/dL Low HDL Cholesterol HDL >or= 60 mg/dL High HDL Cholesterol LAB L501.6500 0-130 mg/dL Normal LDL 86 LAB L501.6600 5-40 mg/dL High VLDL 58 Performed By: #### L500.4050, L500.4100, L501.9520, L506.0400 #### [facility] [address] [place], [address] THYROID STIM HORMONE Collected: 10/27/2017 Status: F Source: [place] (TSH) 9:44 AM [facility] REPOSITORY Order Comment: Order Date: 10/27/17 Order Info: [id number] - CMP Order Info: [id number] - LIPID Order Info: [id number] - TSH Order Info: 3024-7 - T4F TYPE CODE TESTS RESULT OUT OF RANGE REFERENCE UNITS LAB L501.9520 0.358-3.74 uIU/mL Normal TSH 1.80 Performed By: #### L500.4050, L500.4100, L501.9520, L506.0400 #### [facility] [address] [place], [address] T4 FREE DIRECT Collected: 10/27/2017 Status: F Source: [place] 9:44 AM [facility] REPOSITORY Order Comment: Order Date: 10/27/17 Order Info: [id number] - CMP Order Info: [id number] - LIPID Order Info: [id number] - TSH Order Info: 3024-7 - T4F TYPE CODE TESTS RESULT OUT OF RANGE REFERENCE UNITS LAB L506.0400 0.76-1.46 ng/dL Normal T4 FREE 1.11 DIRECT Performed By: #### L500.4050, L500.4100, L501.9520, L506.0400 #### [facility] [address] [place], [address] PT D/C SUMMARY (1) Observed: 09/22/2017 Status: F Source: [place] 4:56 PM [facility] REPOSITORY [facility] [address] [place], [place] [address] Fax REHABILITATION SERVICES DISCHARGE SUMMARY MR#: [id number] Acct: [id number] Name: TORY TSANG Rep #: [id number] : 1950 67 From: Elijah Rosales PT, Cert. T, OCS Referring DrYoanna: Janes SCHAEFERM Status: REG RCR Insurance: [employer] MEDICARE PPO SELF PAY INSURANCE HP - PT D/C Summary It has been my pleasure to treat TORY TSANG under orders from Janes Avalos, for the diagnosis of R ankle fx, s/p ORIF 05/16/17 for a total of 5 visit(s). Discharge Date: 09/20/17 Please see the following information for a summary of their discharge status. - Subjective Subjective: Doing well .. no pain. Return to prior level of function normal john - Pain R ankle Pain Intensity (Out of 10): 0 - Overall Improvement % Improvement: 80 - Objective Objective/Function: POSTURE: WFL. GAIT:normal john. AROM: ankle DF 5 degrees,PF 60 degrees,IN 35degrees,EV 5degrees. MMT: ankle 4/5 except 4- /5 G-S. PROPRIOCEPTION: intact left to right - Goals Goal 1:: Pt will demonstrate at least 15 degrees of ankle DF bilaterally to normalize gait mechanics. Goal Progress: Goal Met Goal 2:: Pt will ascend/descend a flight of 7-8 inch stairs with reciprocal gait pattern to normalize stair negotiation. Goal Progress: Goal Met Goal 3:: Pt will report at least 25% improvement on LEFS score to show true change in functional status and to improve QOL. Goal Progress: Goal Met Goal 4:: Pt will be independent with HEP to sustain gains made in the clinic. Goal Progress: Goal Met - Plan Plan: D/C TO HEP - D/C Information Discharge Comments: HEP If there are questions or concerns regarding this patient's physical therapy, please feel free to call me at [phone]. Thank you for the referral of this patient. Sincerely, Elijah Rosales PT, <Electronically signed by Elijah Rosales PT, Cert. MDT, OCS> 09/22/17 1028 CC: Teodoro Farias MD; Janes Avalos DPM JOY Signed INITAL EVALUATION (1) Observed: 08/26/2017 Status: F Source: [place] - PT 8:35 AM [facility] REPOSITORY [facility] [address] [place] [address]. [address] [place] [address] Fax REHABILITATION SERVICES INITIAL EVALUATION MR#: [id number] Acct: [id number] Name: TORY TSANG Rep #: [id number] : 1950 67 From: Elijah Rosales PT, Cert. MDT, OCS Referring Dr.: Janes Avalos DPM Status: REG RCR Insurance: [employer] MEDICARE PPO SELF PAY INSURANCE Patient's Visit Information TORY TSANG is a 67 year old F referred to Physical Therapy by Janes Avalos with a diagnosis of R ankle fx, s/p ORIF 05/16/17. Date of Evaluation: 08/23/17 Physical Therapist: Elijah Rosales PT, - Visit Plan Frequency: 1x/Week Duration: 4 Weeks Plan: Focus on restoring DF ROM, progressive CKC strengthening, and progressive balance activities. She would like to resume biking/walking this summer. - Subjective Subjective: Pt is a 67 y/o female s/p R ORIF 05/16/17. She suffered a trimalleolar fx on 05/05/17 when she fell on grass. She was NWB for 8 weeks after surgery with kneeeling scooter.. She was in the CAM boot for 4 weeks after with PWB right ankle that and now in a brace. She is able to walk about an hour before having to rest due to pain. She was given AROM exercises by the surgeon. She will note some increasing soreness. OCCUPATION/HOBBIES: Retired. Likes to ride bike and walk. - Pain R ankle Pain Intensity (Out of 10): 2 - Objective OBSERVATION: Incision well healed with good mobility. Pes cavus bilaterally. CIRCUMFERENCE: figure 8 R 51 cm, L 49.5 cm. GAIT: R toe out, wearing ankle brace. ROM: R ankle DF -2, PF 30, IV 30, EV 22. L ankle DF 8, PF 48, EV 22, IV 32. ASSESSORY MOTION: R STJ med/lat glides normal. R TC posterior glide hypomobile. STRENGTH: Gross B ankle strength 5/5. B hip abd 4+/5. BALANCE: Tandem stance: unable to hold >5 seconds bilaterally. - Goals Goal 1:: Pt will demonstrate at least 15 degrees of ankle DF bilaterally to normalize gait mechanics. Goal Time Frame: 4-6 Weeks Goal 2:: Pt will ascend/descend a flight of 7-8 inch stairs with reciprocal gait pattern to normalize stair negotiation. Goal Time Frame: 4-6 Weeks Goal 3:: Pt will report at least 25% improvement on LEFS score to show true change in functional status and to improve QOL. Goal Time Frame: 4-6 Weeks Goal 4:: Pt will be independent with HEP to sustain gains made in the clinic. Goal Time Frame: 4-6 Weeks - Rehabilitation Potential Physical Therapy Diagnosis: Pt is 67 y/o female s/p R ankle ORIF on 05/16/17. She suffered a trimalleolar fx on 05/05/17 from a slip on the grass. She is WBAT now and has progressed to a shoe with brace. She is having little pain and is tolerating weight bearing well. Objective testing reveals a loss of passive dorsiflexion and poor proprioception. She is having activity limitations that include difficulty ambulating long distances and descending stairs. This affects her participation with her usual hobbies. Pt will benefit from skilled PT to address the mentioned impairments to maximize function. Rehabilitation Potential: Excellent - Anticipated Interventions Patient/Client Instruction: Educate patient on: Condition, Plan of Care For the Purpose of:: To decrease pain, To increase ROM, To improve muscle performance and motor function, To increase tolerance to activity/condition/position, To improve ability of physical actions for home/community/work/leisure, To improve gait and locomotor functions, To improve health of tissue, To decrease soft tissue restriction, To increase flexibility/ROM, To improve endurance, To improve balance, To improve self management, To prevent re-injury Therapeutic Exercise to Include: Strength training, Endurance training, Balance training, Flexibilty training, Gait and locomotor training, Passive ROM, Active ROM For the Purpose of:: To decrease pain, To increase ROM, To improve muscle performance and motor function, To increase tolerance to activity/condition/position, To improve ability of physical actions for home/community/work/leisure, To improve gait and locomotor functions, To improve health of tissue, To decrease soft tissue restriction, To increase flexibility/ROM, To improve endurance, To improve balance, To improve safety with gait, To reduce risk of recurrence, To improve self management, To prevent re-injury Manual Therapy Techniques to Include: Mobilization For the Purpose of:: To decrease pain, To increase ROM, To improve muscle performance and motor function, To increase tolerance to activity/condition/position, To improve ability of physical actions for home/community/work/leisure, To improve gait and locomotor functions, To improve health of tissue, To decrease soft tissue restriction, To increase flexibility/ROM, To improve endurance, To improve balance, To improve safety with gait, To reduce risk of recurrence, To improve self management, To prevent re-injury Functional electric stimulation: Yes TENS: Yes Other electric stimulation: Yes Cryotherapy (ice pack, ice massage): Yes Thermo therapy (hot pack): Yes For the Purpose of:: To decrease pain, To increase ROM, To improve health of tissue, To decrease soft tissue restriction, To increase flexibility/ROM, To improve endurance, To improve balance Thank you for the opportunity to evaluate your patient. For Medicare and Medicare HMO plans, please review the plan of care and approve it. It will need to be FAXED BACK to us at [phone] for Medicare purposes. Please let me know if there are questions or concerns regarding this plan of care. Physician Signature: Date: <Electronically signed by Elijah Rosales PT Cert. MATTHEW, OCS> 08/26/17 0835 CC: Teodoro Farias MD; Janes Avalos DPM JOY Signed For Medicare only, by signing this I certify the plan of care. Physicians Signature Date DOWNTIME REPORT Observed: 08/25/2017 Status: F Source: [place]EVE 12:06 PM [facility] REPOSITORY [facility] Medical Records Department [address] [place] [address] Downtime Report MR#: [id number] Acct: [id number] Name: TORY TSANG Rep #: [id number] : 1950 67 From: Dedrick Bates PCP: Teodoro Farias MD Status: REG RCR This patient was seen during an EMR downtime August 08, 2017 - August 15, 2017. This patient may have a combination of paper and electronic documentation or all paper documentation. All documentation is viewable within the e-chart portion of [employer] for each patient visit. AAA SCREENING Observed: 08/17/2017 Status: F Source: [place] 2:51 PM [facility] REPOSITORY [facility] Cardiovascular Services [address] [place] [address] AAA Screening 08/17/17 0753 MR#: [id number] Acct: [id number] Name: TORY TSANG Rep #: [id number] : 1950 67 From: Colton Schmidt MD Attending Dr: Teodoro Farias MD Status: REG CLI Ordering Dr: Akbar Farias MD Date: 08/17/17 Location: [facility] Sex: F C Admitted: Reason For Study: AAA screening Aorta Measurements Aorta Doppler Measurements Proximal aorta measures1.8 x 1.9cm. in cross- Peak systolic flow velocities within the proximal sectional axis. aorta measure 108.0 cm/sec. Proximal aorta measures1.8cm. in longitudinal Peak systolic flow velocities within the mid axis. aorta measure 101.0 cm/sec. Mid aorta measures1.6 x 1.7cm. in cross-sectionalPeak systolic flow velocities within the distal axis. aorta measure 81.2 cm/sec. Mid aorta measures1.5cm. in longitudinal axis. Distal aorta measures1.4 x 1.4cm. in cross- sectional axis. Distal aorta measures1.4cm. in longitudinal axis. Left Iliac Artery Left iliac artery measures .96 cm. in the longitudinal axis. Left iliac artery measures .96 x .96 cm. in the cross-sectional axis. Peak systolic velocity in the left iliac artery measures 120.0 cm/sec. Right Iliac Artery Right iliac artery measures 1.0 cm. in the longitudinal axis. Right iliac artery measures 1.0 x 1.0 cm. in the cross-sectional axis. Peak systolic velocity in the right iliac artery measures 122.0 cm/sec. Procedure Aorta IVC Iliac vasculature or bypass grafts 601[address]. Exam performed in department. Interpretation Summary The dimensions of the intra-abdominal aorta are normal, without evidence of aneurysmal dilatation. The iliac arteries are also normal in size. The intra-abdominal aorta and iliac arteries are patent, demonstrating normal, pulsatile arterial flow and normal peak systolic velocities. 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 TYPE CODE TESTS RESULT OUT OF RANGE REFERENCE UNITS LAB L501.0100 74-106 mg/dL High GLU 111 Result Comment: Fasting Glucose result from 100 to 125 mg/dL suggests IMPAIRED HOMEOSTASIS per A.D.A. criteria. Please note revised GLUCOSE reference range effective 2017. LAB L501.1000 7-18 mg/dL High BUN 21 LAB L501.1100 0.55-1.02 mg/dL Normal CREAT,SERUM 0.87 Result Comment: The validity of the calculated GFR AND GFRAA in patients over 70 years has not been determined. Clinical correlation is essential. LAB L501.1110 >60 mL/min EST GFR Normal 69 LAB L501.1115 >60 mL/min EST GFR Normal - AA 84 LAB L501.1255 ml/min Normal Estimated CRCL 58.01 LAB L501.1300 10-20 RATIO High BUN/CRE 24.1 LAB L501.1500 6.4-8.2 g/dL T PROT Normal 7.4 LAB L501.1800 3.2-5.0 g/dL ALB Normal 3.8 LAB L501.1950 2.2-4.2 g/dL GLOB Normal 3.6 LAB L501.2000 0.9-2.4 RATIO A/G Normal 1.1 LAB L501.2200 8.5-10.1 mg/dL CA Normal 8.6 LAB L501.4100 15-37 U/L AST Normal 37 LAB L501.4305 45-117 U/L High ALK P 161 LAB L501.4405 13-56 U/L ALT Normal 55 LAB L501.4600 0.20-1.00 mg/dL T BILI Normal 0.30 LAB L501.5300 136-145 mmol/L NA Normal 144 LAB L501.5600 3.5-5.1 mmol/L K Normal 4.0 LAB L501.5900 98-107 mmol/L CL Normal 107 LAB L501.6100 21.0-32.0 mmol/L CO2 Normal 29.0 LAB L501.6200 5-15 GAP Normal 8 Performed By: #### L500.4050, L100.0100 #### [facility] [address] [place], [address] CBC W/DIFF, AUTOMATED Collected: 08/10/2017 Status: F Source: [place] 1:45 PM [facility] REPOSITORY Order Comment: Reason for Laboratory Test OV RESULT(S) PREVIOUSLY REPORTED ON MANUAL REQUISITION DURING DOWNTIME. TYPE CODE TESTS RESULT OUT OF RANGE REFERENCE UNITS LAB L100.1000 4.4-11.0 K/mm3 Normal WBC 6.3 LAB L100.1200 4.2-5.4 M/mm3 Low RBC 4.01 LAB L100.1300 12.0-15.0 g/dl Normal HGB 12.1 LAB L100.1400 37-47 % Normal HCT 37.3 LAB L100.1500 81-99 fL Normal MCV 93.0 LAB L100.1600 27.0-32.0 pg Normal MCH 30.2 LAB L100.1700 32-36 g/gl Normal MCHC 32.4 LAB L100.1810 11.6-14.6 % Normal RDW CV 12.9 LAB L100.1820 35.1-43.9 fl Normal RDW SD 42.9 LAB L100.1900 150-450 K/mm3 Normal PLT 268 LAB L100.2000 6.2-12.0 fl Normal MPV 10.1 LAB L100.2100 47-70 % Normal NEUT% 64.4 LAB L100.2200 19-41 % Normal LY% 23.0 LAB L100.2300 0-10 % Normal MONO% 8.4 LAB L100.2400 0-5 % Normal EO% 3.0 LAB L100.2500 0-1 % Normal BASO% 0.9 LAB L100.2550 0.0-0.9 % Normal IM GRAN % 0.300 Result Comment: IG% - Immature Granulocytes (promyelocytes, myelocytes and metamyelocytes) > 1% indicates that a LEFT SHIFT is Present. LAB L100.2620 2.0-7.7 X10 3/uL Normal Absolute Neut 4.1 LAB L100.2720 0.83-4.51 X10 3/ul Normal Absolute Lymph 1.46 Performed By: #### L500.4050, L100.0100 #### [facility] [address] [place], [place], [address] THYROID STIM HORMONE Collected: 07/27/2017 Status: F Source: [place]OMA (TSH) 11:53 AM [facility] REPOSITORY Order Comment: Order Date: 07/27/17 Order Info: 3016-3 - TSH Order Info: 3024-7 - T4F TYPE CODE TESTS RESULT OUT OF RANGE REFERENCE UNITS LAB L501.9520 0.358-3.74 uIU/mL Low TSH 0.34 Performed By: #### L501.9520, L506.0400 #### [facility] [address] [place], [place], [address] T4 FREE DIRECT Collected: 07/27/2017 Status: F Source: [place] 11:53 AM [facility] REPOSITORY Order Comment: Order Date: 07/27/17 Order Info: 3016-3 - TSH Order Info: 3024-7 - T4F TYPE CODE TESTS RESULT OUT OF RANGE REFERENCE UNITS LAB L506.0400 0.76-1.46 ng/dL Normal T4 FREE 1.40 DIRECT Performed By: #### L501.9520, L506.0400 #### [facility] [address] [place], [address] DISCHARGE SUMMARY Observed: 05/17/2017 Status: F Source: [place] 6:56 PM [facility] REPOSITORY [facility] Medical Records Department [address] [place] [address] Discharge Summary 05/17/17 1839 MR#: [id number] Acct: [id number] Name: TORY TSANG Rep #: [id number] : 1950 67 From: Nadya Miller DO PCP: Teodoro Farias MD Status: ADM MARISOL Y Location: [place] [address] Discharge Date and Diagnosis - Problem List Patient Problems: Active and Suspected Problems (Last Reviewed 03/02/17 @ 14:08 by Erin Gibbons) Sleep-disordered breathing (Acute) Status post open reduction with internal fixation (ORIF) of fracture of ankle (Acute) Trimalleolar fracture of right ankle (Acute) Date of Admission: 05/16/17 Date of Discharge: 05/17/17 - Primary Discharge Diagnosis Active and Suspected Problems (Last Reviewed 03/02/17 @ 14:08 by Erin Gibbons) Status post open reduction with internal fixation (ORIF) of fracture of ankle (Acute) Trimalleolar fracture of right ankle (Acute) Sleep disordered breathing - hypoxia with sleeping - Secondary Discharge Diagnosis Chronic Problems (Last Reviewed 03/02/17 @ 14:08 by Erin Gibbons) Hypothyroidism (Chronic) Type 2 diabetes mellitus (Chronic) Hypertension (Chronic) History of right breast cancer (Chronic) Ductal carcinoma of breast (Chronic) Hospital Course and Treatment Imaging Results: Clinical Impression(s) from Imaging Studies Chest X-Ray 05/16/17 11:15 IMPRESSION: 9 mm nodule in the mid right lung. CT scan recommended. Electronically Signed: Charlie Lynn MD at 11:48 EDT , Service support , Ankle X-Ray 05/16/17 13:00 Ankle X-Ray 05/16/17 16:10 IMPRESSION: Status post ORIF and casting distal tibial and fibular fractures Electronically Signed: Janes Jett MD at 20:06 EDT , Service support , Laboratory Tests WBC RBC Hgb Hct MCV MCH MCHC RDW RDW Differential WBC 9.2 RBC 3.29 L Hgb 10.[address] Damaso Avalos - Podiatry Operations: - - ORIF of right ankle Trimalleolar fracture 05/16/[address] Avalos Procedures: None Summary of Care Provided: Patient is a 67-year-old female with past medical history of hypothyroidism, diabetes mellitus type 2, hypertension, right breast cancer and trimalleolar fracture of the right ankle on 05/05/2017. She had open reduction internal fixation on 05/16/[address] Avalos. She was admitted to the hospital for pain control at the request of Dr. Avalos. She was afebrile for the duration of her hospital stay. Blood pressures were initially elevated but came down nicely with pain control. Tachycardia also resolved with pain control. She had lab done on the date of discharge that showed a normal white blood cell count at 9.2, decreased hemoglobin at 10.2 and platelets of 231,000. MCV and MCH were within normal limits and the RDW was also normal. BMP was unremarkable. Hemoglobin A1c was 6.2 recently. Free T4 was normal. She was initially getting 10 mg of Oxy IR every 4 hours as needed for pain but, she di not feel the Oxy IR worked as well as the Amboy she was taking at home for pain. Oxy IR was discontinued and she was started on Amboy 5/325 mg 2 tabs every 4 hours while awake and this adequately controlled her pain without the need for IV narcotics. She will take scheduled Amboy for the next 3 days and then convert to PRN. Naproxen was increased to 440 mg Twice daily with food. She has a knee walker and will be non-weight bearing on the RLE. When she was sleeping she was observed having apneic periods and the pulse ox dropped into the low 80's at times. She has never had a sleep study. I discussed this with the city planner to see if we could get home O2 for sleep until she can get an OP PSG. she called the insurance company and was informed insurance will not cover this. She will follow up with Dr. Farias and discuss referral for an OP PSG. She will follow up with Dr. Farias in 10-[address] Avalos in 1 week, sooner if she has uncontrolled pain, bleeding or fevers. This note was generated with [employer] dictation software. It may contain incorrect words, spelling, and punctuation that were not noted in checking the note before signing. Discharge Activity: May Not Drive Weight Bearing Status: No weight bearing - Strict nonweightbearing right foot Keep extremity elevated above heart level: Right Leg - Keep right foot elevated using pillows for at least 50 minutes of every hour Call your doctor if your incision/area has: Continuous Slow Oozing, Sudden Increased Bleeding, Increased Redness, Foul Smelling Discharge Call your doctor if you observe: Fever of 101 or Higher, Coldness, Increased Pain, Shortness of breath, Chest pain, Increased palpitations (irregular heartbeat), Calf discomfort, Uncontrolled pain Cleanse incision/area with: Do not get Incision Wet, Keep Dressing Clean AND Dry Home Medications: Medications to take at Discharge Atorvastatin Calcium [Lipitor] 40 mg PO QHS 06/02/16 Levothyroxine [Synthroid] 112 mcg PO DAILY 06/02/16 Metformin HCl [Glucophage] 500 mg PO QHS 06/02/16 Niacin [Niaspan] 1,000 mg PO QHS 06/02/16 Pramipexole Di-HCl [Mirapex] 0.5 mg PO BID 06/02/16 Losartan Potassium [Cozaar] 50 mg PO DAILY 08/03/16 Omeprazole [Prilosec] 40 mg PO DAILY 08/03/16 Calcium Carbonate/Vitamin D3 [Calcium 600 with Vit D Chew Tb] 1 each PO BID 05/12/17 Citalopram [Celexa] 20 mg PO QHS 05/12/17 Multivit with Calcium,Iron,Min [Multiple Vitamins For Women] 1 each PO DAILY 05/12/17 Aspirin 325 mg PO DAILY 30 Days #30 tab 05/17/17 Aspirin 325 mg PO DAILY@0800 tablet 05/17/17 Clindamycin [Cleocin] 300 mg PO TID 2 Days #12 cap 05/17/17 Hydrocodone Bitart/Apap 5-325 [Amboy 5/325] 2 tab PO UD 7 Days #40 tab 05/17/17 Naproxen Sodium [Aleve] 440 mg PO BID #60 tab 05/17/17 Following Prescrptions Were Given to Patient: Aspirin 325 mg PO DAILY 30 Days #30 tab Hydrocodone Bitart/Apap 5-325 [Amboy 5/325] 2 tab PO UD 7 Days #40 tab Clindamycin [Cleocin] 300 mg PO TID 2 Days #12 cap Primary Care Physician: Akbar Farias MD [Primary Care Provider] - Please follow up with your Primary Care Physician in: 10-14 days Please Follow Up With: Janes Avalos DPM When: within 1 week, or sooner if needed. Minutes spent on discharge:: 30 Patient Condition:: Good Meaningful Use Info Meaningful Use Diagnoses (Choose all that apply): None applicable Code Visit OBSV E AND M: 54772 Observation care discharge 05/17/17 8705 <Electronically signed by Nadya Miller DO> Date Nadya Wilson Signature (if applicable): Date CC: Eloina Miller; Teodoro Farias MD; Janes Avalos DPM Signed DISCHARGE INSTRUCTION Observed: 05/17/2017 Status: F Source: [place] 6:39 PM [facility] REPOSITORY [facility] Medical Records Department [address] [place] [address] Instructions for Home/Discharge Instructions 05/17/17 1832 MR#: [id number] Acct: [id number] Name: TORY TSANG Rep #: [id number] : 1950 67 From: Nadya Miller DO PCP: Teodoro Farias MD Status: ADM MARISOL - Discharge Diagnoses Current Active Problems: Current Active and Chronic Problems (Last Reviewed 03/02/17 @ 14:08 by Erin Gibbons) Hypothyroidism (Chronic) Type 2 diabetes mellitus (Chronic) Hypertension (Chronic) You will use the following diet at home:: Calorie/Carbohydrate Controlled (specify 1200, 1400, etc), Other - Resume previous diet Your food should be the consistency of: Regular Your liquids should be the consistency of: Regular/Thin Discharge Activity: May Not Drive Weight Bearing Status: No weight bearing - Strict nonweightbearing right foot Keep extremity elevated above heart level: Right Leg - Keep right foot elevated using pillows for at least 50 minutes of every hour Call your doctor if your incision/area has: Continuous Slow Oozing, Sudden Increased Bleeding, Increased Redness, Foul Smelling Discharge Call your doctor if you observe: Fever of 101 or Higher, Coldness, Increased Pain, Shortness of breath, Chest pain, Increased palpitations (irregular heartbeat), Calf discomfort, Uncontrolled pain Cleanse incision/area with: Do not get Incision Wet, Keep Dressing Clean AND Dry Additional Instructions: You can take the Alleve (Naproxen) twice a day. Take it with food. This will help to decrease inflammation and it is also a pain reliever. I would take the vicodin(Amboy) every 4 hours for the next 3 days and after that you can take it 1-2 tabs every 4 hours as needed for pain. Your diabetes is very well controlled. The HGBA1C is 6.2 and that is excellent! Narcotics can make you very constipated. If this happens start a stool softener. a good one is Miralzx because you can mix it in juice or water and it has no taste. Allergies/Adverse Reactions: Allergies Penicillins [PCN] Allergy (Severe, Verified 05/12/17 14:18) Hives Medications to take at Discharge Atorvastatin Calcium [Lipitor] 40 mg PO QHS 06/02/16 Levothyroxine [Synthroid] 112 mcg PO DAILY 06/02/16 Metformin HCl [Glucophage] 500 mg PO QHS 06/02/16 Niacin [Niaspan] 1,000 mg PO QHS 06/02/16 Pramipexole Di-HCl [Mirapex] 0.5 mg PO BID 06/02/16 Losartan Potassium [Cozaar] 50 mg PO DAILY 05/30/17 Omeprazole [Prilosec] 40 mg PO DAILY 08/03/16 Calcium Carbonate/Vitamin D3 [Calcium 600 with Vit D Chew Tb] 1 each PO BID 05/12/17 Citalopram [Celexa] 20 mg PO QHS 05/12/17 Multivit with Calcium,Iron,Min [Multiple Vitamins For Women] 1 each PO DAILY 05/12/17 Aspirin 325 mg PO DAILY 30 Days #30 tab 05/17/17 Aspirin 325 mg PO DAILY@0800 tablet 05/17/17 Clindamycin [Cleocin] 300 mg PO TID 2 Days #12 cap 05/17/17 Hydrocodone Bitart/Apap 5-325 [Amboy 5/325] 2 tab PO UD 7 Days #40 tab 05/17/17 Naproxen Sodium [Aleve] 440 mg PO BID #60 tab 05/17/17 The following prescriptions were given: Aspirin 325 mg PO DAILY 30 Days #30 tab Hydrocodone Bitart/Apap 5-325 [Amboy 5/325] 2 tab PO UD 7 Days #40 tab Clindamycin [Cleocin] 300 mg PO TID 2 Days #12 cap Primary Care Physician: Akbar Farias MD [Primary Care Provider] - Please follow up with your Primary Care Physician in: 10-14 days Please Follow Up With: Janes Avalos DPM When: within 1 week, or sooner if needed. Proposed Discharge Date: 05/17/17 05/17/17 1839 <Electronically signed by Nadya Miller DO> Date Nadya Miller DO CC: Teodoro Farias MD; Janes Avalos DPM DISCHARGE INSTRUCTION Observed: 05/17/2017 Status: F Source: STEVE 4:37 PM [facility] REPOSITORY [facility] Medical Records Department [address] [place] [address] Instructions for Home/Discharge Instructions 05/17/17 0859 MR#: [id number] Acct: [id number] Name: TORY TSANG Rep #: [id number] : 1950 67 From: Janes Avalos DPM PCP: Teodoro Farias MD Status: ADM MARISOL Discharge Activity: May Not Drive Weight Bearing Status: No weight bearing - Strict nonweightbearing right foot Keep extremity elevated above heart level: Right Leg - Keep right foot elevated using pillows for at least 50 minutes of every hour Call your doctor if your incision/area has: Continuous Slow Oozing, Sudden Increased Bleeding, Increased Redness, Foul Smelling Discharge Call your doctor if you observe: Fever of 101 or Higher, Coldness, Increased Pain, Shortness of breath, Chest pain, Increased palpitations (irregular heartbeat), Calf discomfort, Uncontrolled pain Cleanse incision/area with: Do not get Incision Wet, Keep Dressing Clean AND Dry Allergies/Adverse Reactions: Allergies Penicillins [PCN] Allergy (Severe, Verified 05/12/17 14:18) Hives Medications to take at Discharge Atorvastatin Calcium [Lipitor] 40 mg PO QHS 06/02/16 Levothyroxine [Synthroid] 112 mcg PO DAILY 06/02/16 Metformin HCl [Glucophage] 500 mg PO QHS 06/02/16 Niacin [Niaspan] 1,000 mg PO QHS 06/02/16 Pramipexole Di-HCl [Mirapex] 0.5 mg PO BID 06/02/16 Losartan Potassium [Cozaar] 50 mg PO DAILY 08/03/16 Omeprazole [Prilosec] 40 mg PO DAILY 08/03/16 Hydrocodone Bitart/Apap 5-325 [Amboy 5/325] 1 - 2 tab PO Q4H PRN PRN 3 Days #20 tab 05/05/17 Calcium Carbonate/Vitamin D3 [Calcium 600 with Vit D Chew Tb] 1 each PO BID 05/12/17 Citalopram [Celexa] 20 mg PO QHS 05/12/17 Multivit with Calcium,Iron,Min [Multiple Vitamins For Women] 1 each PO DAILY 05/12/17 Naproxen Sodium [Aleve] 440 mg PO DAILY 05/12/17 Aspirin 325 mg PO DAILY 30 Days #30 tab 05/17/17 Clindamycin [Cleocin] 300 mg PO TID 2 Days #12 cap 05/17/17 The following prescriptions were given: Aspirin 325 mg PO DAILY 30 Days #30 tab Clindamycin [Cleocin] 300 mg PO TID 2 Days #12 cap Primary Care Physician: Akbar Farias MD [Primary Care Provider] - Please Follow Up With: Janes Avalos DPM When: within 1 week, or sooner if needed. 05/17/17 1637 <Electronically signed by Janes Avalos DPM> Date Janes Avalos DPM CC: Teodoro Farias MD; Janes Avalos DPM CBC W/DIFF, AUTOMATED Collected: 05/17/2017 Status: F Source: STEVE 5:04 AM [facility] REPOSITORY TYPE CODE TESTS RESULT OUT OF RANGE REFERENCE UNITS LAB L100.1000 4.4-11.0 K/mm3 Normal WBC 9.2 LAB L100.1200 4.2-5.4 M/mm3 Low RBC 3.29 LAB L100.1300 12.0-15.0 g/dl Low HGB 10.2 LAB L100.1400 37-47 % Low HCT 31.1 LAB L100.1500 81-99 fL Normal MCV 94.5 LAB L100.1600 27.0-32.0 pg Normal MCH 31.0 LAB L100.1700 32-36 g/gl Normal MCHC 32.8 LAB L100.1810 11.6-14.6 % Normal RDW CV 13.9 LAB L100.1820 35.1-43.9 fl High RDW SD 48.0 LAB L100.1900 150-450 K/mm3 Normal PLT 233 LAB L100.2000 6.2-12.0 fl Normal MPV 9.4 LAB L100.2100 47-70 % High NEUT% 74.1 LAB L100.2200 19-41 % Low LY% 13.8 LAB L100.2300 0-10 % High MONO% 11.3 LAB L100.2400 0-5 % Normal EO% 0.4 LAB L100.2500 0-1 % Normal BASO% 0.2 LAB L100.2550 0.0-0.9 % Normal IM GRAN % 0.200 Result Comment: IG% - Immature Granulocytes (promyelocytes, myelocytes and metamyelocytes) > 1% indicates that a LEFT SHIFT is Present. LAB L100.2620 2.0-7.7 X10 3/uL Normal Absolute Neut 6.8 LAB L100.2720 0.83-4.51 X10 3/ul Normal Absolute Lymph 1.27 Performed By: #### L100.0100 #### [facility] [address] [place], [address] PROTHROMBIN TIME W/INR Collected: 05/17/2017 Status: F Source: [place] 5:04 AM [facility] REPOSITORY TYPE CODE TESTS RESULT OUT OF RANGE REFERENCE UNITS LAB L300.4150 11.7-14.9 SECONDS Normal PROTIME 13.6 LAB L300.4200 Normal INR 1.0 Performed By: #### L300.3900 #### [facility] [address] [place], [address] BASIC METABOLIC Collected: 05/17/2017 Status: F Source: [place] PROFILE (BMP) 5:04 AM [facility] REPOSITORY TYPE CODE TESTS RESULT OUT OF RANGE REFERENCE UNITS LAB L501.0100 74-106 mg/dL High GLU 127 Result Comment: Fasting Glucose result greater than or equal to 126 mg/dL suggests DIABETES MELLITUS per A.D.A. criteria. Please note revised GLUCOSE reference range effective 2017. LAB L501.1000 7-18 mg/dL Normal BUN 13 LAB L501.1100 0.55-1.02 mg/dL Normal CREAT,SERUM 0.88 Result Comment: The validity of the calculated GFR AND GFRAA in patients over 70 years has not been determined. Clinical correlation is essential. LAB L501.1110 >60 mL/min Normal EST GFR 68 Result Comment: Non- GFR Calc LAB L501.1115 >60 mL/min Normal EST GFR - AA 83 Result Comment: GFR Calc LAB L501.1255 ml/min Normal Estimated CRCL 57.35 LAB L501.1300 10-20 RATIO Normal BUN/CRE 14.8 LAB L501.2200 8.5-10 mg/dL Low .1 CA 8.0 LAB L501.5300 136-14 mmol/L Normal 5 NA 141 LAB L501.5600 3.5-5. mmol/L Normal 1 K 3.9 LAB L501.5900 98-107 mmol/L Normal CL 105 LAB L501.6100 21.0-3 mmol/L Normal 2.0 CO2 27.0 LAB L501.6200 5-15 Normal GAP 9 Performed By: #### L500.2500 #### [facility] [address] [place], [address] FREE T3 Collected: 05/16/2017 Status: F Source: [place] 7:15 PM [facility] REPOSITORY TYPE CODE TESTS RESULT OUT OF RANGE REFERENCE UNITS LAB L501.91355 2.18-3.98 pg/mL Low FREE T3 2.0 Performed By: #### L501.60435, L501.9310, L506.0400 #### [facility] [address] [place], [address] T4 TOTAL, THYROXIN Collected: 05/16/2017 Status: F Source: [place] 7:15 PM [facility] REPOSITORY TYPE CODE TESTS RESULT OUT OF RANGE REFERENCE UNITS LAB L501.9310 4.8-13.9 ug/dL T4 Normal THYROXIN 9.7 Performed By: #### L501.41716, L501.9310, L506.0400 #### [facility] [place], [address] T4 FREE DIRECT Collected: 05/16/2017 Status: F Source: [place] 7:15 PM [facility] REPOSITORY TYPE CODE TESTS RESULT OUT OF RANGE REFERENCE UNITS LAB L506.0400 0.76-1.46 ng/dL Normal T4 FREE 1.04 DIRECT Performed By: #### L501.04612, L501.9310, L506.0400 #### [facility] [place], [address] HISTORY AND PHYSICAL Observed: 05/16/2017 Status: F Source: [place] EXAM 5:57 PM [facility] REPOSITORY [facility] Medical Records Department [address] [place] [address] History and Physical 05/16/17 1645 MR#: [id number] Acct: [id number] Name: TORY TSANG Rep #: [id number] : 1950 67 From: Cadence Thomas MD PCP: Teodoro Farias MD Status: [place] [facility] [place] [address] Problem List (1) Hypothyroidism Status: Chronic (2) Type 2 diabetes mellitus Status: Chronic (3) Hypertension Status: Chronic (4) History of right breast cancer Status: Chronic (5) Ductal carcinoma of breast Status: Chronic History of Present Illness Date of Admission: 05/16/17 Chief Complaint: Trimalleolar right ankle fracture status post ORIF, being admitted for pain control. This is a 67 years old female patient admitted for elective surgery for traumatic trimalleolar right ankle fracture on May 05, 2017 and she underwent open reduction internal fixation today and she is being admitted for postoperative pain control and management. At this time, she mentioned that her right ankle pain is about 6 out of 10 in severity, dull aching pain, not radiating and no associated symptoms. She had a mechanical fall back on May 05, 2017 that led to this fracture. She denied chest pain or shortness of breath. Denied abdominal pain, nausea vomiting. Denied fever or chills. Denied cough or sputum production. She has history of type 2 diabetes mellitus she has been on metformin, most recent hemoglobin A1c was on May 12, 2017 and was 6.2. She had a history of hypothyroidism, has been on levothyroxine and her TSH was 7.1 on May 12, 2018 which is above reference range. She has history of hypertension and she has been on losartan and usually her blood pressure under control. At this time, blood pressure is slightly elevated, heart rate has been in the 90s, pulse ox is 100% on 3 L of oxygen. Preoperative routine blood work including CBC and BMP that was performed on May 12, 2017 reviewed and was unremarkable. She is being admitted for traumatic trimalleolar right ankle fracture status post ORIF for postoperative pain control and management. 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 Dyspnea, Syncope Respiratory: Denies: Cough, Hemoptysis, Pleuritic Pain, Shortness of Breath, Sputum production Gastrointestinal: Denies: Abdominal Pain, Constipation, Diarrhea, Nausea, Vomiting Genitourinary: Denies: Dysuria, Frequency, Hematuria Musculoskeletal: Reports: Foot Pain, Joint Pain. Denies: Arm Pain, Back Pain Skin: Denies: Dryness, Rash Neurological: Denies: Balance problems, Blurred vision, Change in Speech, Slurred speech, Confusion, Incoordination, Numbness Psychiatric: Denies: Anxiety Endocrine: Denies: Change in Body Habitus, Polydipsia VTE Information - Inpt Only VTE Present on Admission: No VTE Mechan Device Prophylaxis: SCD's VTE Pharm Prophylaxis ordered?: No - Physical Exam General: Alert, Cooperative, No apparent distress HEENT: Atraumatic, PERRLA, EOMI Oral: Moist Mucosa, No Gingival or Mucosal Lesions/ Ulcerations Neck: Supple, No JVD, Negative Carotid Bruits, Trachea Midline, Thyroid Normal Size and Texture Lungs: Clear to auscultation, No rhonchi, No wheeze, No rales, Diminished Cardiovascular: Regular rate, Regular Rhythm, Normal S1, Normal S2, No murmurs, PMI Normal Abdomen: Bowel Sounds Present, Soft, Non Tender, Non-Distended, No Hepato-splenomegaly Extremities: No clubbing, No cyanosis, No edema Skin: No rashes, No breakdown Lymphatic: No Cervical, Supraclavicular, or Inguinal Adenopathy Neurological: Cranial nerves II-XII grossly intact, Motor Exam 5/5 strength throughout Psych/Mental Status: Normal Affect, Appropriate, Alert and oriented to time, place, person, mood and affect Vital Signs Temp Pulse Resp BP Pulse Ox 97.7 F L 95 16 175/81 H 100 05/16/17 16:00 05/16/17 16:15 05/16/17 16:15 05/16/17 16:15 05/16/17 16:15 Oxygen Flow Rate (L/min) 3 Oxygen Delivery Method Nasal Cannula Weight: 177 lb Body Mass Index (BMI) 29.4 Laboratory Tests Past 24 Hrs Hemoglobin A1c 6.2 POC Glucose POC Glucose 123 H 121 H Assessment/Plan The patient is a 67 year old F with past medical history as mentioned above who underwent elective surgery for traumatic trimalleolar right ankle fracture due to mechanical fall on May 05, 2017 and she underwent open reduction and internal fixation today and she is being admitted for postoperative pain control and management. #1 traumatic trimalleolar right ankle fracture: Status post ORIF, postop day 1. At this time, right ankle pain is manageable. Blood pressure slightly elevated, other vital signs are stable. [facility], IV hydromorphone for pain as needed, OxyIR as needed for pain, podiatry medicine consult, laxatives, continue perioperative prophylaxis with IV clindamycin, PT OT evaluation and treatment. #2 type 2 diabetes mellitus: ADA diet, Accu-Cheks, insulin sliding scale, hold metformin,. #3 hypertension: Blood pressure slightly elevated, continue losartan, start IV hydrazine as needed #4 hypothyroidism: TSH was 7.1 recently. Plan to continue levothyroxine, check free and total T4 as well as free T3. #5 hyperlipidemia: Continue statins. #6 depression: Continue Celexa. #7 history of breast cancer: Status post mastectomy, stable, in remission. #8 DVT prophylaxis: Full dose aspirin daily, SCDs. This note was generated with [employer] dictation software. It may contain incorrect words, spelling, and punctuation that were not noted in checking the note before signing. Code Visit Inpatient Sondra AND M: [id number] Init Hosp L3 05/16/17 5479 <Electronically signed by Cadence Thomas MD> Date Cadence Wilkinson Signature: Date (if applicable) CC: Teodoro Farias MD; Cadence Thomas Signed BEDSIDE GLUCOSE Collected: 05/16/2017 Status: F Source: [place] 4:17 PM [facility] REPOSITORY TYPE CODE TESTS RESULT OUT OF REFERENCE UNITS RANGE LAB L501.080 70-110 mg/dL High BEDSIDE GLU 123 Result Comment: MANAGEMENT OF PATIENT CARE PER NURSING PROTOCOL Performed By: #### L501.080 #### [facility] Point of Care [address] [place] [address] ANKLE MIN 3 VIEWS Observed: 05/16/2017 Status: F Source: [place] 3:59 PM [facility] REPOSITORY [facility] Imaging Services [address] [place] [address] Ankle min 3 Views MR#: [id number] Acct: [id number] Name: TORY TSANG Rep #: [id number] : 1950 F 67 From: Janes Jett MD PCP: Teodoro Farias MD Status: ADM IN Study: Ankle min 3 Views Date of Exam: 05/16/17 Exam# [id number] Ordering Dr: Janes Avalos Nadya STUDY: X-RAY - RIGHT ANKLE REASON FOR EXAM: Female, 67 years old. Postop TECHNIQUE: 3 view(s) of the ankle. COMPARISON: May 16, 2017 FINDINGS: Postsurgical changes status post open reduction internal fixation falls casting of distal tibial and fibular fractures. Fracture fragments are in near anatomic alignment and position RAD/Ankle min 3 Views IMPRESSION: Status post ORIF and casting distal tibial and fibular fractures Electronically Signed: Janes Jett MD at 20:06 EDT , Service support , CC: Teodoro Farias MD; Janes Avalos DPM Heavy Forger Helper: Signed BEDSIDE GLUCOSE Collected: 05/16/2017 Status: F Source: STEVE 12:08 PM [facility] REPOSITORY TYPE CODE TESTS RESULT OUT OF REFERENCE UNITS RANGE LAB L501.080 70-110 mg/dL High BEDSIDE GLU 121 Result Comment: MANAGEMENT OF PATIENT CARE PER NURSING PROTOCOL Performed By: #### L501.080 #### [facility] Point of Care [address] [place] [address] CHEST PA AND LATERAL Observed: 05/16/2017 Status: F Source: [place] 10:06 AM [facility] REPOSITORY [facility] Imaging Services [address] [place] [address] Chest PA and Lateral MR#: [id number] Acct: [id number] Name: TORY TSANG Rep #: [id number] : 1950 F 67 From: Charlie Lynn MD PCP: Teodoro Farias MD Status: [facility] Study: Chest PA and Lateral Date of Exam: 05/16/17 Exam# [id number] Ordering Dr: Bjorn Davis MD STUDY: X-RAY CHEST REASON FOR EXAM: Female, 67 years old. Pre-op TECHNIQUE: Frontal and lateral views of the chest. COMPARISON: None. FINDINGS: Normal lung volumes. 9 mm nodule in the mid right lung. CT scan recommended. No infiltrates or effusions. There is no demonstrated pleural abnormality. Normal size heart. Normal mediastinum and sasha. Normal visualized pulmonary arteries. Normal visualized aortic arch and descending thoracic aorta. Normal visualized thoracic spine. Normal visualized ribs, clavicles, and shoulders. There is no demonstrated abnormality of the visualized soft tissue structures of the upper abdomen. RAD/Chest PA and Lateral IMPRESSION: 9 mm nodule in the mid right lung. CT scan recommended. Electronically Signed: Charlie Lynn MD at 11:48 EDT , Service support , CC: Bjorn Davis MD; Teodoro Farias MD Heavy Forger Helper: Signed ANKLE MIN 3 VIEWS Observed: 05/16/2017 Status: F Source: STEVE 4:47 AM [facility] REPOSITORY [facility] Imaging Services [address] [place] [address] Ankle min 3 Views MR#: [id number] Acct: [id number] Name: TORY TSANG Rep #: [id number] : 1950 F 67 From: Charlie Lynn MD PCP: Teodoro Farias MD Status: [facility] Study: Ankle min 3 Views Date of Exam: 05/16/17 Exam# [id number] Ordering Dr: Janes Avalos DPM STUDY: X-RAY - RIGHT ANKLE REASON FOR EXAM: Female, 67 years old. ORIF right ankle fractures TECHNIQUE: 10 C-arm view(s) of the ankle. 68.6 seconds fluoroscopy time COMPARISON: None. FINDINGS: These images show grossly satisfactory appearance of the ankle, medial malleolus, and distal fibula status post ORIF. Correlate with procedure note. Electronically Signed: Charlie Lynn MD at 15:38 EDT , Service support , RAD/Ankle min 3 Views CC: Teodoro Farias MD; Janes Avalos DPM Heavy Forger Helper: Signed EMERGENCY DEPARTMENT Observed: 05/12/2017 Status: F Source: STEVE SUMMARY 4:05 PM [facility] REPOSITORY [facility] Medical Records Department [address] [facility] [place] [address] Emergency Department Summary 05/05/17 2343 MR#: [id number] Acct: [id number] Name: TORY TSANG Rep #: [id number] : 1950 67 From: José Chacon DO PCP: Teodoro Farias MD Status: DEP ER - ER Visit Summary Date of Service: 05/05/17 Chief Complaint: Ankle injury History of Present Illness: The patient is a 67 F who went to let her dog out when she slipped and fell on the wet grass/snow. EMS notes obvious deformity to the right ankle. Patient denies any other injuries. She is a patient of Dr. Hein from orthopedics. Patient received fentanyl in route and she was air splinted. Physical Examination: Afebrile vital signs are stable Gen: Well-nourished well-developed Head: Normocephalic atraumatic Eyes: Perrl EOMI ENT: TMs clear no rhinorrhea moist mucous membranes Neck: Supple no lymphadenopathy no JVD nontender CVS: Regular rate rhythm no murmurs normal S1-S2 Respiratory: No distress clear to auscultation bilaterally chest nontender Abdomen: Soft nontender nondistended normal bowel sounds no masses Back: Nontender Extremity: Right ankle is obviously deformed. There is no fibular head tenderness. She is neurovascularly intact distal to the injury. This appears to be a closed injury Skin: Normal color no rash Neuro: alert orientated 3 CN II-XII intact normal strength sensation reflexes gait cerebellar Psych: Normal affect normal mood Test Results: X-rays demonstrated trimalleolar fracture Emergency Department Course and Treatment: Patient received fentanyl and Zofran. She provided informed consent for the use of propofol for procedural sedation. Patient received 1 mg/kg bolus followed by 0.5 mg kilogram bolus to achieve adequate sedation. Once adequate sedation the splint was removed the ankle was reduced and was placed in a cotton padded posterior and stirrup splint. Patient was allowed to recover without incident. Post x-ray films were obtained. She was given Amboy. She has done okay on crutches in the past. Her is going to get a walker to help with nonweightbearing around the house. They are going to follow-up with Dr. Hein return if worsening. Impression: 1. Right trimalleolar fracture 2. Splint by physician 3. Procedural sedation by physician This note was generated with [employer] dictation software. It may contain incorrect words, spelling, and punctuation that were not noted in review of the chart prior to signing ED Disposition - Plan for ED Patient: Disposition: Home or Assisted Living Chief Complaint: Lower Extremity Injury Instructions: ED Fx Ankle General Prescriptions: Hydrocodone Bitart/Apap 5-325 [Amboy 5/325] 1 - 2 tab PO Q4H PRN PRN 3 Days #20 tab PRN Reason: Pain Referrals: Akbar Farias MD [Primary Care Provider] - Ernesto Hein DO [STAFF PHYSICIAN] - (call in am to arrange follow up) What to do if you have Problems For any increased pain, shortness of breath, bleeding, nausea or vomiting, chest pain, or any unexpected problems, contact your Primary Care Provider. Call [facility] ([phone]) or report to the closest Emergency Room. Call 911 if necessary. 05/12/17 1605 <Electronically signed by José Chacon DO> Date José Chacon DO Cosigner Signature (If Indicated): Date CC: Teodoro GOODRICH MULTI Observed: 05/12/2017 Status: F Source: [place]OMA OBL 3-D REC 1:30 PM [facility] REPOSITORY [facility] Imaging Services [address] [place] [address] Coronals Sag Multi Obl 3-D Rec MR#: [id number] Acct: [id number] Name: TORY TSANG Rep #: [id number] : 1950 F 67 From: Janes Jett MD PCP: Teodoro Farias MD Status: REG CLI Study: Coronals Sag Multi Obl 3-D Rec Date of Exam: 05/12/17 Exam# [id number] Ordering Dr: Janes Avalos DPM STUDY: CT RIGHT ANKLE WITHOUT CONTRAST REASON FOR EXAM: Female, 67 years old. Right ankle fracture RADIATION DOSAGE (If Supplied By Facility): CTDIvol = ( 15.35 ) mGy, DLP = ( 495.76 ) mGycm TECHNIQUE: Thin section transaxial imaging of the ankle was obtained, with sagittal and coronal reconstructed images. Individualized dose optimization techniques were used for this CT. COMPARISON: None. FINDINGS: There is an acute, comminuted intra-articular spiral fracture of the distal fibula with mild separation of the fracture fragments. There is an obliquely oriented comminuted intra-articular fracture of the posterior malleolus with with mild separation of fracture fragments. There is a transverse fracture through the distal tibial plafond with mild medial displacement of the proximal fracture fragment. There is also widening of the anterior tibiotalar joint. Normal talus, calcaneus, navicular and cuboid tarsal bones. Normal subtalar, talonavicular and calcaneocuboid articulations. Normal navicular-cuneiform, cuneiform tarsal bones and intercuneiform articulations. Normal tarsometatarsal articulations and visualized metatarsi. Diffuse soft tissue swelling is noted. CT/Coronals Sag Multi Obl 3-D Rec IMPRESSION: Acute displaced trimalleolar fracture with anterior tibiotalar subluxation Electronically Signed: Janes Jett MD at 21:01 EST , Service support , CC: Teodoro Farias MD; Janes Avalos DPM Heavy Forger Helper: Signed EXTREMITY LOWER Observed: 05/12/2017 Status: F Source: STEVE WITHOUT CONTRA 1:26 PM [facility] REPOSITORY [facility] Imaging Services [address] [place] [address] [place] [address] Extremity Lower without Contra MR#: [id number] Acct: [id number] Name: TORY TSANG Rep #: [id number] : 1950 F 67 From: Janes Jett MD PCP: Teodoro Farias MD Status: REG CLI Study: Extremity Lower without Contra Date of Exam: 05/12/17 Exam# [id number] Ordering Dr: Janes Avalos DPM STUDY: CT RIGHT ANKLE WITHOUT CONTRAST REASON FOR EXAM: Female, 67 years old. Right ankle fracture RADIATION DOSAGE (If Supplied By Facility): CTDIvol = ( 15.35 ) mGy, DLP = ( 495.76 ) mGycm TECHNIQUE: Thin section transaxial imaging of the ankle was obtained, with sagittal and coronal reconstructed images. Individualized dose optimization techniques were used for this CT. COMPARISON: None. FINDINGS: There is an acute, comminuted intra-articular spiral fracture of the distal fibula with mild separation of the fracture fragments. There is an obliquely oriented comminuted intra-articular fracture of the posterior malleolus with with mild separation of fracture fragments. There is a transverse fracture through the distal tibial plafond with mild medial displacement of the proximal fracture fragment. There is also widening of the anterior tibiotalar joint. Normal talus, calcaneus, navicular and cuboid tarsal bones. Normal subtalar, talonavicular and calcaneocuboid articulations. Normal navicular-cuneiform, cuneiform tarsal bones and intercuneiform articulations. Normal tarsometatarsal articulations and visualized metatarsi. Diffuse soft tissue swelling is noted. CT/Extremity Lower without Contra IMPRESSION: Acute displaced trimalleolar fracture with anterior tibiotalar subluxation Electronically Signed: Janes Jett MD at 21:01 EST , Service support , CC: Teodoro Farias MD; Janes Avalos DPM Heavy Forger Helper: Signed HEMOGLOBIN A1C Collected: 05/12/2017 Status: F Source: STEVE 10:00 AM [facility] REPOSITORY TYPE CODE TESTS RESULT OUT OF RANGE REFERENCE UNITS LAB L501.9985 4.2-6.3 % Normal HGB A1C 6.2 Performed By: #### L501.9985 #### [facility] [address] [place], [address] CBC-COMPLETE BLOOD CNT Collected: 05/12/2017 Status: F Source: STEVE NO DIFF 9:59 AM [facility] REPOSITORY Order Comment: Order Date: 05/12/17 Order Info: [id number] - CBC TYPE CODE TESTS RESULT OUT OF RANGE REFERENCE UNITS LAB L100.1000 4.4-11.0 K/mm3 Normal WBC 7.7 LAB L100.1200 4.2-5.4 M/mm3 Low RBC 3.95 LAB L100.1300 12.0-15.0 g/dl Normal HGB 12.1 LAB L100.1400 37-47 % Normal HCT 37.4 LAB L100.1500 81-99 fL Normal MCV 94.7 LAB L100.1600 27.0-32.0 pg Normal MCH 30.6 LAB L100.1700 32-36 g/gl Normal MCHC 32.4 LAB L100.1810 11.6-14.6 % Normal RDW CV 13.6 LAB L100.1820 35.1-43.9 fl High RDW SD 47.2 LAB L100.1900 150-450 K/mm3 Normal PLT 288 LAB L100.2000 6.2-12.0 fl Normal MPV 10.2 Performed By: #### L100.0500, L300.3900, L300.4310 #### [facility] [address] [place], [place], [address] PROTHROMBIN TIME W/INR Collected: 05/12/2017 Status: F Source: STEVE 9:59 AM [facility] REPOSITORY Order Comment: Order Date: 05/12/17 Order Info: [id number] - PT Order Info: [id number] - PTT TYPE CODE TESTS RESULT OUT OF RANGE REFERENCE UNITS LAB L300.4150 11.7-14.9 SECONDS Normal PROTIME 12.7 LAB L300.4200 Normal INR 1.0 Performed By: #### L100.0500, L300.3900, L300.4310 #### [facility] [address] [place], [address] PARTIAL THROMBOPLAST Collected: 05/12/2017 Status: F Source: [place] TIME 9:59 AM [facility] REPOSITORY Order Comment: Order Date: 05/12/17 Order Info: [id number] - PT Order Info: [id number] - PTT TYPE CODE TESTS RESULT OUT OF RANGE REFERENCE UNITS LAB L300.4310 24.1-36.2 Seconds Normal PTT 28.9 Performed By: #### L100.0500, L300.3900, L300.4310 #### [facility] [address] [place], [place], [address] COMPREHENSIVE METABOLIC Collected: 05/12/2017 Status: F Source: [place] PROFIL 9:59 AM [facility] REPOSITORY Order Comment: Order Date: 03/21/17 Order Info: [id number] - CMP Order Info: [id number] - LIPID Order Info: [id number] - TSH TYPE CODE TESTS RESULT OUT OF RANGE REFERENCE UNITS LAB L501.0100 74-106 mg/dL High GLU 109 Result Comment: Fasting Glucose result from 100 to 125 mg/dL suggests IMPAIRED HOMEOSTASIS per A.D.A. criteria. Please note revised GLUCOSE reference range effective 2017. LAB L501.1000 7-18 mg/dL Normal BUN 16 LAB L501.1100 0.55-1.02 mg/dL Normal CREAT,SERUM 0.82 Result Comment: The validity of the calculated GFR AND GFRAA in patients over 70 years has not been determined. Clinical correlation is essential. LAB L501.1110 >60 mL/min Normal EST GFR 74 Result Comment: Non- GFR Calc LAB L501.1115 >60 mL/min Normal EST GFR - AA 90 Result Comment: GFR Calc LAB L501.1300 10-20 RATIO Normal BUN/CRE 19.5 LAB L501.1500 6.4-8.2 g/dL T Normal PROT 7.4 LAB L501.1800 3.2-5.0 g/dL Normal ALB 3.7 LAB L501.1950 2.2-4.2 g/dL Normal GLOB 3.7 LAB L501.2000 0.9-2.4 RATIO Normal A/G 1.0 LAB L501.2200 8.5-10.1 mg/dL CA Normal 8.7 LAB L501.4100 15-37 U/L Normal AST 25 LAB L501.4305 45-117 U/L High ALK P 129 LAB L501.4405 13-56 U/L Normal ALT 34 Result Comment: Please note revised ALT reference range effective 2017. LAB L501.4600 0.20-1.00 mg/dL Normal T BILI 0.60 LAB L501.5300 136-145 mmol/L Normal NA 141 LAB L501.5600 3.5-5.1 mmol/L Normal K 4.0 LAB L501.5900 98-107 mmol/L Normal CL 107 LAB L501.6100 21.0-32.0 mmol/L Normal CO2 24.0 LAB L501.6200 5-15 Normal GAP 10 Performed By: #### L500.4050, L500.4100, L501.9520 #### [facility] [address] [place], [place], [address] LIPID PROFILE Collected: 05/12/2017 Status: F Source: STEVE 9:59 AM [facility] REPOSITORY Order Comment: Order Date: 03/21/17 Order Info: [id number] - CMP Order Info: [id number] - LIPID Order Info: [id number] - TSH TYPE CODE TESTS RESULT OUT OF RANGE REFERENCE UNITS LAB L501.4900 200 mg/dL Normal CHOL 160 Result Comment: <200 mg/dL Desirable 200-240 mg/dL Borderline >240 mg/dL High Risk LAB L501.5000 mg/dL High TRIG 246 Result Comment: The drugs N-Acetylcysteine and Metamizole may falsely depress this assay. Serum Triglycerides Reference Interval Normal <150 mg/dL Borderline high 150 - 199 mg/dL High 200 - 499 mg/dL Very High > or = 500 mg/dL LAB L501.6400 mg/dL Normal HDL 48 Result Comment: The drugs N-Acetylcysteine and Metamizole may falsely depress this assay. Reference Range HDL <40 mg/dL Low HDL Cholesterol HDL >or= 60 mg/dL High HDL Cholesterol LAB L501.6500 0-130 mg/dL Normal LDL 63 LAB L501.6600 5-40 mg/dL High VLDL 49 Performed By: #### L500.4050, L500.4100, L501.9520 #### [facility] [address] [place], [address] THYROID STIM HORMONE Collected: 05/12/2017 Status: F Source: STEVE (TSH) 9:59 AM [facility] REPOSITORY Order Comment: Order Date: 03/21/17 Order Info: [id number] - CMP Order Info: [id number] - LIPID Order Info: 3016-3 - TSH TYPE CODE TESTS RESULT OUT OF RANGE REFERENCE UNITS LAB L501.9520 0.358-3.74 uIU/mL High TSH 7.16 Performed By: #### L500.4050, L500.4100, L501.9520 #### [facility] [address] [place], [address] VITAMIN D,25 HYDROXY Collected: 05/12/2017 Status: F Source: STEVE 9:59 AM [facility] REPOSITORY Order Comment: Order Date: 05/12/17 Order Info: [id number] - VITD25 TYPE CODE TESTS RESULT OUT OF RANGE REFERENCE UNITS LAB L506.1000 29.95-100.01 ng/mL Normal Vitamin D 38.1 25-OH Result Comment: Vitamin D 25(OH) Status Range Deficiency <20 ng/mL (50nmol/L) Insuffciency 20 - 30 ng/mL (50 - 75 nmol/L) Sufficiency 30 - 100 ng/mL (75 - 250 nmol/L) Toxicity >100 ng/mL (>250 nmol/L) Performed By: #### L506.1000 #### [facility] [address] [place], [address] ANKLE MIN 3 VIEWS Observed: 05/05/2017 Status: F Source: STEVE 11:02 PM [facility] REPOSITORY [facility] Imaging Services [address] [place] [address] Ankle min 3 Views MR#: [id number] Acct: [id number] Name: TORY TSANG Rep #: [id number] : 1950 F 67 From: Talib Heck MD PCP: Teodoro Farias MD Status: REG ER Study: Ankle min 3 Views Date of Exam: 05/05/17 Exam# [id number] Ordering Dr: José Chacon DO STUDY: X-RAY - RIGHT ANKLE REASON FOR EXAM: Female, 67 years old. History of ankle fracture. Post reduction. TECHNIQUE: 3 view(s) of the ankle. COMPARISON: 05/05/2017, 9:09 PM. FINDINGS: There again is an oblique displaced fracture of the distal fibula. There again is a transverse displaced fracture of the medial malleolus. There is persistent subluxation of the tibiotalar joint but improved since the previous exam. Fracture of the posterior malleolus is again seen. The pancreas in cast obscuring the soft tissues and bony details. RAD/Ankle min 3 Views IMPRESSION: Trimalleolar fracture of the right ankle as described above. Electronically Signed: Talib Heck MD at 23:26 EST Tel , Service support , CC: Teodoro Farias MD; José Chacon DO Heavy Forger Helper: Signed ANKLE 2 VIEWS Observed: 05/05/2017 Status: F Source: TACOMA 8:47 PM [facility] REPOSITORY [facility] Imaging Services [address] [place] [address] Ankle 2 Views MR#: [id number] Acct: [id number] Name: TORY TSANG Rep #: [id number] : 1950 F 67 From: Corey Garcia MD PCP: Teodoro Farias MD Status: REG ER Study: Ankle 2 Views Date of Exam: 05/05/17 Exam# [id number] Ordering Dr: José Chacon DO STUDY: X-RAY - RIGHT ANKLE REASON FOR EXAM: Female, 67 years old. Pain, trauma TECHNIQUE: 3 view(s) of the ankle. COMPARISON: None. FINDINGS: There is trimalleolar fracture with disruption of the ankle mortise with lateral posterior subluxation at the ankle joint. No osseous destruction. Normal visualized talus and calcaneus. The visualized subtalar, talonavicular, calcaneocuboid and tarsal articulations are normal. The soft tissue structures are unremarkable. RAD/Ankle 2 Views IMPRESSION: Trimalleolar fracture/subluxation Electronically Signed: Corey Garcia MD at 21:22 EST Tel , Service support , CC: Teodoro Farias MD; José Chacon DO Heavy Forger Helper: Signed ALLERGIES ALLERGIES DATE TYPE / CODE NAME / CODE REACTION SEVERITY SOURCE 08/17/2017 Drug Penicillins/ Hives [facility] Allergy/4160 [id number](R [facility] [address](SNOMED XNORM) Repository CT) ENCOUNTERS ENCOUNTERS ADMIT/DISCHARGE ACCOUNT ADMITTING ENCOUNTER LOCATION SOURCE NUMBER CLASS 03/22/2018 [id number] Ambulatory Steve [place] 0 [facility] ing:OPBI Repository 12/08/2017 [id number] Ambulatory Roselle Roselle 8 [facility] ing:SL Repository 10/27/2017 [id number] Ambulatory Roselle Roselle 2 [facility] ing:MFPLAB Repository 09/20/2017/ [id number] Ambulatory Steve Roselle 8 8 [facility] ing:PT Repository 08/17/2017 [id number] Ambulatory Roselle Roselle 5 [facility] ing:CVS Repository 08/10/2017 [id number] Ambulatory Roselle Steve 2 [facility] ing:OMD Repository 08/10/2017 [id number] Ambulatory BMSBuilding:B Steve 1 MS.[facility] Repository 07/27/2017 [id number] Ambulatory Roselle Steve 8 [facility] ing:MFPLAB Repository 05/16/2017/ [id number] Ashelf, Ambulatory Roselle Steve 8 3 Ghasem [facility] ing:IB4Hrcx: Repository [id number]: 1 05/16/2017 [id number] [place]helf, Ambulatory BMSBuilding:B Steve 5 [place] [facility] 05/16/2017 [id number] Ambulatory BMSBuilding:B Steve 8 [facility] Repository 05/12/2017 [id number] Ambulatory Roselle Steve 8 [facility] ing:CT Repository 05/12/2017 [id number] Ambulatory Roselle Roselle 0 [facility] ing:MFPLAB Repository 05/05/2017/ [id number] Emergency [place] Steve 8 7 [facility] ing:ED Repository PAYERS PAYERS ENCOUNTER GUARANTOR PAYER SUBSCRIBER SOURCE 03/22/2018 EFREN GORESondra He [place] [id number] Insurance:HUMANA KREIDERDOB: Community [place] MED[place] PPOPolicy [id number] Number: Repository [address]Dur: 330 [id number] [phone] Date:[id number] [address]BX: 03/22/2018 Secondary NOT GIVENUNK Steve Insurance:SELF PAY [facility] Number: Effective Repository Date:2018-01-11 12/08/2017 EFREN Bingham Primary [address] [id number] Insurance:HUMANA KREIDERDOB: Community [place] MED[place] PPOPolicy [id number] Number: Repository [address]Vdx: 330 [id number] [phone] (HP) Date:7756-53-25FN [address] [place] [address]EI: 12/08/2017 Secondary NOT GIVENUNK Steve Insurance:SELF PAY [facility]: Effective Repository Date:2017-11-21 10/27/2017 Efren Bingham Primary TORY Pandyaoster [id number] Insurance:HUMANA KREIDERDOB: Community [address] Lot MEDICARE PPOPolicy [id number] [place] Number: Repository [id number]: (330 [id number] [phone] (HP) Date:9348-26-10OT [address] [address]WR: 10/27/2017 Secondary NOT GIVENUNK Steve Insurance:SELF PAY [facility] Number: Effective Repository Date:2017-10-27 09/20/2017 Efren Bingham Primary TORY He [place] [id number] Insurance:HUMANA KREIDERDOB: [facility] [address] MEDICARE PPOPolicy [id number] [place] Number: Repository [address]Qgk: ([phone] [id number] [phone] (HP) Date:5335-84-65XT [address] [address]KT: 09/20/2017 Secondary NOT GIVENUNK [place] Insurance:SELF PAY [facility] Number: Effective Repository Date:2017-08-18 08/17/2017 Efren Bingham Primary TORY He [place] [id number] Insurance:HUMANA KREIDERDOB: [facility] [address] MEDICARE PPOPolicy [id number], [place] Number: Repository [address]Eqe: 330 [id number] [phone] (HP) Date:5916-60-63FE [address] [address]BC: 08/17/2017 Secondary NOT GIVENUNK Steve Insurance:SELF PAY [facility] Number: Effective Repository Date:2017-07-29 08/10/2017 Efren Bingham Primary Efren Bingham Steve [id number] Insurance:MEDICAL KreiderDOB: [facility] [address] [facility] [id number] Number: Repository [address]Xxu: 330 [id number] [phone] (HP) Date:8348-39-86Es [address] [place] [address]UB: 08/10/2017 Secondary NOT GIVENUNK Ros[place] Insurance:SELF PAY [facility] Number: Effective Repository Date:2016-05-26 08/10/2017 Efren Bingham Primary TORY A Steve [id number] Insurance:HUMANA KREIDERDOB: [facility] [address] Lot MEDICARE [facility] [id number] Number: Repository [address]Ozg: 330 [id number] [phone] (HP) Date:3027-22-15XY [address] [place] [address]HY: 08/10/2017 Secondary NOT GIVENUNK [place] Insurance:SELF PAY [facility] Number: Effective Repository Date:2017-08-10 07/27/2017 Efren Bingham Primary TORY A [place] [id number] Insurance:HUMANA KREIDERDOB: [facility] [address] [facility] [id number] Number: Repository [address]Jhf: 330 [id number] [phone] (HP) Date:3421-49-28TN [address] [place] [address]VD: 07/27/2017 Secondary NOT GIVENUNK Steve Insurance:SELF PAY [facility] Number: Effective Repository Date:2017-07-27 05/16/2017 Efren Bingham Primary TORY A Steve [id number] Insurance:HUMANA KREIDERDOB: [facility] [address] MEDICARE [facility] [id number] Number: Repository [address]Egs: 330 [id number] [phone] (HP) Date:4403-62-81LV [address] [place] [address]FC: 05/16/2017 Secondary NOT GIVENUNK Steve Insurance:SELF PA[facility] Number: Effective Repository Date:2017-05-11 05/16/2017 Efren Bingham Primary TORY A [place] [id number] Insurance:HUMANA ARTUROIDERDOB: [facility] [address] MEDICARE PPOPolicy [id number] Number: Repository [address]Vxh: 330 [id number] [phone] (HP) Date:2122-83-62NR [address] [place] [address]OZ: 05/16/2017 Secondary NOT GIVENUNK Roselle Insurance:SELF PAY [facility] Number: Effective Repository Date:2017-05-16 05/16/2017 Efren Bingham Primary TORY A Steve [id number] Insurance:HUMANA ARTUROIDERDOB: [facility] [address] MED[address]ARE PPOPolicy [id number] Number: Repository [address]Kow: (330 [id number] [phone] (HP) Date:1974-65-82PD [address] [place] [address]SW: 05/16/2017 Secondary NOT GIVENUNK Ros[place] Insurance:SELF PAY [facility] Number: Effective Repository Date:2017-05-16 05/12/2017 Efren Bingham Primary TORY A Steve [id number] Insurance:HUMANA ARTUROIDERDOB: [facility] [address] MEDICARE PPOPolicy [id number] Number: Repository [address]Xpz: 330 [id number] [phone] (HP) Date:3654-57-62RV [address] [place] [address]YY: 05/12/2017 Secondary NOT GIVENUNK Steve Insurance:SELF PAY [facility] Number: Effective Repository Date:2017-05-11 05/12/2017 Efren Bingham Primary TORY A Roselle [id number] Insurance:HUMANA KREIDERDOB: [facility] [address] MEDICARE PPOPolicy [id number] Number: Repository [address]Isa: 330 [id number] [phone] Date:7194-56-20ET [address] [place] [address]VH: 05/12/2017 Secondary NOT GIVENUNK Steve Insurance:SELF PAY [facility] Number: Effective Repository Date:2017-05-12 05/05/2017 Efren Bingham Primary TORY [id number] Insurance:CYNDIA EMLOB: [address] MEDICARE PPOPolicy [id number] [address] Number: Repository [address]Tru: 330 [id number] [phone] () Date:2963-84-92XK [address] [address]PG: 05/05/2017 Secondary NOT GIVENUNK Roselle Insurance:SELF PAY [facility] Number: Effective Repository Date:2017-05-05
== END ==
PROVIDERS: Family Provider Family Medicine; PCP Family Medicine; Referring Provider Nurse Practitioner Family; Visit Provider Nurse Practitioner Family
DX: Z12.31 Encounter for screening mammogram for malignant neoplasm of breast (principal); Z85.3 Personal history of malignant neoplasm of breast
CPT/HCPCS: 77061; 77067; G0279

== ENCOUNTER → 2018-08-02 08:44 | Outpatient (CLI) | payer MEDICARE, SELFPAY ==
[2018-08-02 10:38] LABS: BUN 17 mg/dL (7-18); Creatinine, Serum 0.84 mg/dL (0.55-1.02); Glucose 138 mg/dL (74-106)
[2018-08-02 10:39] LABS: Anion Gap 8 (5-15); BUN/Creat Ratio 20.3 RATIO (10-20); Calcium,Total 8.1 mg/dL (8.5-10.1); Chloride 108 mmol/L (98-107); Cholesterol 185 mg/dL (200); EST Glomerular Filtration Rate 72 mL/min (>60); Est Glom Filt Rate - Afr Amer 87 mL/min (>60); High Density Lipoprotein 49 mg/dL; Potassium 4.1 mmol/L (3.5-5.1); Sodium Level 141 mmol/L (136-145); Thyroid Stim Hormone (TSH) 1.45 uIU/mL (0.358-3.74); Triglycerides 181 mg/dL; Very Low Density Lipoprotein 36 mg/dL (5-40)
[2018-08-03 16:49] LABS: Hep C Antibodies <0.1 s/co ratio (0.0-0.9)
== END ==
PROVIDERS: Family Provider Family Medicine; PCP Family Medicine; Referring Provider Family Medicine; Visit Provider Family Medicine
DX: Z11.59 Encounter for screening for other viral diseases (principal); I10 Essential (primary) hypertension; E78.5 Hyperlipidemia, unspecified; E03.9 Hypothyroidism, unspecified
CPT/HCPCS: 36415; 80048; 80061; 84443; 86803

== ENCOUNTER → 2018-08-23 10:26 | Outpatient (CLI) | payer MEDICARE, SELFPAY ==
--- NOTE | 2018-08-23 11:19 | BD_ITS ---
STUDY: DUAL ENERGY X-RAY ABSORPTIOMETRY / DXA REASON FOR EXAM: Female, 68 years old. The patient is postmenopausal. Loss of height. History of breast cancer. TECHNIQUE: Bone Mineral Density (BMD) measurements of lumbar spine and bilateral hips were obtained. COMPARISON: Comparison is made with prior study dated January 21, 2015. FINDINGS: Lumbar Spine (L1-L4): g/cm2 (1.076) / T-score (-0.9) / Z-score (0.7) Findings are suggestive of normal bone density with a low fracture risk. Loss of height of a mid dorsal vertebrae. Left Femur Total: g/cm2 (0.938) / T-score (-0.6) / Z-score (0.7) Left Femoral Neck: g/cm2 (0.836) / T-score (-1.5) / Z-score (0.1) Right Femur Total: g/cm2 (0.864) / T-score (-1.1) / Z-score (0.1) Right Femoral Neck: g/cm2 (0.767) / T-score (-1.9) / Z-score (-0.4) The T-Scores on the most recent prior examination were: Lumbar Spine (L1-L4): There has been worsening of bone density since the previous examination. Left Femur Total: which represents an improvement of 1.4%. Right Femur Total: which represents a worsening of 5.7%. BD/Dexa Bone Density Study IMPRESSION: The patient is considered osteopenic as outlined below according to World [place] Organization (WHO) criteria with a moderate fracture risk. There has been worsening of bone density since the previous examination. Reference Information: The T-score is the number of standard deviations above or below the standard which is normal for young adults at their peak bone mineral density. The World Health Organization (WHO) interprets the T-scores as follows: Above -1 Normal bone density Between -1 and -2.5 Osteopenia Equal to / or below -2.5 Osteoporosis As a practical clinical guideline, osteopenia may be graded as follows: Mild -1 through -1.5 Moderate -1.6 through -2.0 Severe -2.1 through -2.4 The Z-score is the number of standard deviations above or below age-matched controls. A Z-score of less than -1.5 would be considered abnormal. References: 1. NIH Osteoporosis and Related Bone Diseases http://www.osteo.org 2. International Society for Clinical Densitometry http://www.iscd.org 3. National Osteoporosis Foundation http://www.nof.org Electronically Signed: Doug Kennedy, at 15:39 EDT , Service support ,
== END ==
PROVIDERS: Family Provider Family Medicine; PCP Family Medicine; Referring Provider Family Medicine; Visit Provider Family Medicine
DX: Z00.00 Encounter for general adult medical examination without abnormal findings (principal); Z78.0 Asymptomatic menopausal state
CPT/HCPCS: 77080

== ENCOUNTER → 2018-12-29 08:32 | Outpatient (CLI) | payer MEDICARE, SELFPAY ==
[2018-12-27 11:41] VITALS: BMI 21.6
--- NOTE | 2018-12-29 08:40 | BI_ITS ---
MAMMOGRAPHY - UNILATERAL DIAGNOSTIC: LEFT BREAST REASON FOR EXAM: Female, 68 years old. One week history of left breast lump. PERTINENT HISTORY: Personal history of breast cancer. Prior right mastectomy with radiation and chemotherapy. Mother with breast cancer. TECHNIQUE: Digital unilateral breast laly (3D mammographic acquisition) in the CC and MLO projections. 2-D mediolateral oblique (MLO) and craniocaudad (CC) views of both breasts were obtained. CAD: Full Field Digital Mammography with Computer Added Detection was performed. COMPARISON: Comparison is made with prior study dated March 22, 2018 and January 25, 2017. FINDINGS: Breast Composition: The breasts are heterogeneously dense, which may obscure small masses. There are no dominant masses or suspicious calcifications. No other significant abnormalities are identified. There has been no significant change since the prior study. BI/DIAG MAMM W/CAD, UNILAT IMPRESSION: Stable unilateral diagnostic mammogram. With the patient's history of a palpable abnormality in the left breast, correlation with ultrasound is recommended. ASSESSMENT CATEGORY: BIRADS Category 0: Incomplete. Need additional imaging evaluation. A letter regarding these results will be sent to the patient by the facility within 30 days. Approximately 10% of breast cancers are not detected by mammography. A normal mammogram should not delay biopsy of a clinically suspicious abnormality. Electronically Signed: Doug Kennedy, at 13:12 EDT , Service support ,
--- NOTE | 2018-12-29 08:40 | US_ITS ---
STUDY: ULTRASOUND BREAST - LEFT REASON FOR EXAM: Female, 68 years old. Palpable abnormality in the inferior aspect of the left breast. TECHNIQUE: Axial and longitudinal images of the LEFT breast were performed with a high resolution ultrasound transducer. COMPARISON: Comparison is made with the prior mammogram done earlier in the day. FINDINGS: LEFT Breast: Dilated ducts in the lower inner quadrant of the breast. There is a 4 mm x 7 mm x 3 mm cyst at the 6:00 position of the breast at 3 cm from nipple. US/Breast Limited Unilateral IMPRESSION: Subcentimeters cyst at the 6:00 position of the breast at 3 cm from nipple. Dilated ducts. ASSESSMENT CATEGORY: BIRADS Category 2: Benign. A letter regarding these results will be sent to the patient by the facility within 30 days. Electronically Signed: Doug Kennedy, at 9:01 EDT , Service support ,
== END ==
PROVIDERS: Family Provider Family Medicine; PCP Family Medicine; Referring Provider Nurse Practitioner Family; Visit Provider Nurse Practitioner Family
DX: N63.20 Unspecified lump in the left breast, unspecified quadrant (principal); Z85.3 Personal history of malignant neoplasm of breast; Z80.3 Family history of malignant neoplasm of breast
CPT/HCPCS: 76642; 77061; 77065; G0279

== ENCOUNTER → 2019-05-14 08:11 | Outpatient (CLI) | payer MEDICARE, SELFPAY ==
[2019-01-29 14:51] VITALS: BMI 30.4
[2019-05-14 10:10] LABS: Absolute Lymphocyte Count 1.36 X10^3/uL (0.83-4.51); Absolute Neutrophil Count 4.4 X10^3/uL (2.0-7.7); Basophil# 0.05 X10^3/uL; Basophil% 0.8 % (0-1); Eosinophil# 0.12 X10^3/uL; Eosinophils% 1.8 % (0-5); Hematocrit 38.5 % (37-47); Hemoglobin 12.3 g/dL (12.0-15.0); Lymphocyte # 1.36 X10^3/ul (4.0); Lymphocyte % 20.6 % (19-41); Mean Corp Hgb Conc 31.9 g/dL (32-36); Mean Corpuscular Volume 90.8 fL (81-99); Mean Platelet Vol. 10.8 fl (6.2-12.0); Monocyte# 0.65 X10^3/uL; Monocyte% 9.8 % (0-10); NRBC Flagged by Analyzer 0 % (0-5); Neutrophil # 4.41 X10^3/uL (2.7-7.7); Neutrophil % 66.7 % (47-70); Platelet Count 217 K/mm3 (150-450); RBC Distribution Width CV 13.3 % (11.6-14.6); RBC Distribution Width SD 43.9 fl (35.1-43.9); Red Blood Count 4.24 M/mm3 (4.2-5.4); White Blood Count 6.6 K/mm3 (4.4-11.0)
[2019-05-14 10:21] LABS: ALB/GLOB Ratio 1.1 RATIO (0.9-2.4); AST(SGOT) 16 U/L (15-37); Alanine Aminotransfer ALT/SGPT 26 U/L (13-56); Albumin, Serum 3.7 g/dL (3.2-5.0); Alkaline Phosphatase 127 U/L (45-117); Anion Gap 4 (5-15); BUN 19 mg/dL (7-18); BUN/Creat Ratio 19.6 RATIO (10-20); Calcium,Total 8.7 mg/dL (8.5-10.1); Chloride 108 mmol/L (98-107); Creatinine, Serum 0.97 mg/dL (0.55-1.02); EST Glomerular Filtration Rate 61 mL/min (>60); Est Glom Filt Rate - Afr Amer 74 mL/min (>60); Globulin 3.5 g/dL (2.2-4.2); Glucose 116 mg/dL (74-106); Potassium 4.2 mmol/L (3.5-5.1); Protein, Total 7.2 g/dL (6.4-8.2); Sodium Level 141 mmol/L (136-145)
[2019-05-15 10:17] LABS: Cholesterol 189 mg/dL (200); High Density Lipoprotein 47 mg/dL; Triglycerides 238 mg/dL; Very Low Density Lipoprotein 48 mg/dL (5-40)
== END ==
PROVIDERS: Internal Medicine Medical Oncology; PCP Family Medicine; Referring Provider Family Medicine; Visit Provider Family Medicine
DX: E11.9 Type 2 diabetes mellitus without complications (principal); Z85.3 Personal history of malignant neoplasm of breast
CPT/HCPCS: 36415; 80053; 80061; 84443; 85025

== ENCOUNTER → 2020-01-21 13:20 | Outpatient (CLI) | payer MEDICARE, SELFPAY ==
[2019-08-14 15:01] VITALS: BMI 29.8
--- NOTE | 2020-01-21 13:21 | BI_ITS ---
MAMMOGRAPHY - UNILATERAL SCREENING: LEFT BREAST REASON FOR EXAM: Female, 69 years old. Routine annual screening examination (unilateral). PERTINENT HISTORY: Personal history of breast cancer. Prior right mastectomy. Mother with breast cancer. TECHNIQUE: Digital unilateral breast hilary (3D mammographic acquisition) in the CC and MLO projections. 2-D mediolateral oblique (MLO) and craniocaudad (CC) views of both breasts were obtained. CAD: Full Field Digital Mammography with Computer Added Detection was performed. COMPARISON: Comparison is made with prior study dated 12/29/2018 and 03/22/2018. FINDINGS: Breast Composition: The breasts are heterogeneously dense, which may obscure small masses. There are no dominant masses or suspicious calcifications. Stable benign-appearing left axillary lymph nodes. No other significant abnormalities are identified. There has been no significant change since the prior study. BI/SCREEN MAMM (CAD) W/HILARY UNI L IMPRESSION: Stable unilateral screening mammogram. Yearly follow-up mammogram recommended. (A) ASSESSMENT CATEGORY: BIRADS Category 2: Benign. A letter regarding these results will be sent to the patient by the facility within 30 days. Approximately 10% of breast cancers are not detected by mammography. A normal mammogram should not delay biopsy of a clinically suspicious abnormality. [id number] Electronically Signed: Doug Kennedy, at 13:55 EST , Service support ,
== END ==
PROVIDERS: PCP Family Medicine; Referring Provider Internal Medicine Medical Oncology; Visit Provider Internal Medicine Medical Oncology
DX: Z12.31 Encounter for screening mammogram for malignant neoplasm of breast (principal); Z85.3 Personal history of malignant neoplasm of breast
CPT/HCPCS: 77063; 77067

== ENCOUNTER → 2020-05-14 10:32 | Outpatient (CLI) | payer MEDICARE, SELFPAY ==
[2019-08-14 15:01] VITALS: BMI 29.8
[2020-05-14 13:03] LABS: ALB/GLOB Ratio 1.1 RATIO (0.9-2.4); AST(SGOT) 21 U/L (15-37); Alanine Aminotransfer ALT/SGPT 37 U/L (13-56); Albumin, Serum 3.9 g/dL (3.2-5.0); Alkaline Phosphatase 147 U/L (45-117); Anion Gap 8 (5-15); BUN 24 mg/dL (7-18); BUN/Creat Ratio 21.6 RATIO (10-20); Calcium,Total 8.7 mg/dL (8.5-10.1); Chloride 107 mmol/L (98-107); Cholesterol 203 mg/dL (200); Creatinine, Serum 1.11 mg/dL (0.55-1.02); EST Glomerular Filtration Rate 52 mL/min (>60); Est Glom Filt Rate - Afr Amer 63 mL/min (>60); Globulin 3.5 g/dL (2.2-4.2); Glucose 137 mg/dL (74-106); High Density Lipoprotein 54 mg/dL; Potassium 4.1 mmol/L (3.5-5.1); Protein, Total 7.4 g/dL (6.4-8.2); Sodium Level 140 mmol/L (136-145); T4 Free Direct 1.27 ng/dL (0.76-1.46); Thyroid Stim Hormone (TSH) 1.73 uIU/mL (0.358-3.74); Triglycerides 177 mg/dL; Very Low Density Lipoprotein 35 mg/dL (5-40)
== END ==
PROVIDERS: PCP Family Medicine; Referring Provider Family Medicine; Visit Provider Family Medicine
DX: E11.9 Type 2 diabetes mellitus without complications (principal); E03.9 Hypothyroidism, unspecified
CPT/HCPCS: 36415; 80053; 80061; 84439; 84443

== ENCOUNTER → 2020-10-16 15:30 | Outpatient (CLI) | payer MEDICARE, SELFPAY ==
[2019-08-14 15:01] VITALS: BMI 29.8
--- NOTE | 2020-10-16 15:49 | BD_ITS ---
STUDY: DUAL ENERGY X-RAY ABSORPTIOMETRY / DXA REASON FOR EXAM: Female, 70 years old. 627.8Menopausal postmenopausalBONE DENSITY REASON FOR EXAM TECHNIQUE: Bone Mineral Density (BMD) measurements of lumbar spine and bilateral hips were obtained. COMPARISON: Comparison is made with prior study dated 08/23/2018. FINDINGS: Lumbar Spine (L1-L4): g/cm2 (0.914) / T-score (-1.2) / Z-score (0.8) Findings are suggestive of osteopenia with a low fracture risk. Left Femur Total: g/cm2 (0.875) / T-score (-0.6) / Z-score (0.9) Left Femoral Neck: g/cm2 (0.678) / T-score (-1.5) / Z-score (0.2) Right Femur Total: g/cm2 (0.815) / T-score (-1.0) / Z-score (0.4) Right Femoral Neck: g/cm2 (0.640) / T-score (-1.9) / Z-score (-0.2) The T-Scores on the most recent prior examination were: Lumbar Spine (L1-L4): There has been worsening of bone density since the previous examination. Left Femur Total: which represents an improvement of 0.1%. Right Femur Total: which represents an improvement of 1.7%. BD/Dexa Bone Density Study IMPRESSION: The patient is considered osteopenic as outlined below according to World [place] Organization (WHO) criteria with a moderate fracture risk. There has been improvement of bone density since the previous examination. Reference Information: The T-score is the number of standard deviations above or below the standard which is normal for young adults at their peak bone mineral density. The World Health Organization (WHO) interprets the T-scores as follows: Above -1 Normal bone density Between -1 and -2.5 Osteopenia Equal to / or below -2.5 Osteoporosis As a practical clinical guideline, osteopenia may be graded as follows: Mild -1 through -1.5 Moderate -1.6 through -2.0 Severe -2.1 through -2.4 The Z-score is the number of standard deviations above or below age-matched controls. A Z-score of less than -1.5 would be considered abnormal. References: 1. NIH Osteoporosis and Related Bone Diseases www osteo.org 2. International Society for Clinical Densitometry www iscd.org 3. National Osteoporosis Foundation www nof.org Electronically Signed: Doug Kennedy MD at 20:21 EDT , Service support ,
== END ==
PROVIDERS: PCP Family Medicine; Referring Provider Family Medicine; Visit Provider Family Medicine
DX: Z00.00 Encounter for general adult medical examination without abnormal findings (principal); Z78.0 Asymptomatic menopausal state
CPT/HCPCS: 77080

== ENCOUNTER → 2021-01-21 09:47 | Outpatient (CLI) | payer MEDICARE, SELFPAY ==
--- NOTE | 2021-01-21 09:54 | BI_ITS ---
MAMMOGRAPHY - UNILATERAL SCREENING: LEFT BREAST REASON FOR EXAM: Female, 70 years old. Routine annual screening examination (unilateral). PERTINENT HISTORY: Personal history of breast cancer. Prior right mastectomy. Mother with breast cancer. TECHNIQUE: Digital unilateral breast hilary (3D mammographic acquisition) in the CC and MLO projections. 2-D mediolateral oblique (MLO) and craniocaudad (CC) views of both breasts were obtained. CAD: Full Field Digital Mammography with Computer Added Detection was performed. COMPARISON: Comparison is made with prior study dated 01/21/2020 and 12/29/2018. FINDINGS: Breast Composition: The breasts are heterogeneously dense, which may obscure small masses. There are no dominant masses or suspicious calcifications. Stable small benign-appearing left axillary lymph nodes. No other significant abnormalities are identified. There has been no significant change since the prior study. BI/SCREEN MAMM (CAD) W/HILARY UNI L IMPRESSION: Stable unilateral screening mammogram. Yearly follow-up mammogram recommended. (A) ASSESSMENT CATEGORY: BIRADS Category 2: Benign. A letter regarding these results will be sent to the patient by the facility within 30 days. Approximately 10% of breast cancers are not detected by mammography. A normal mammogram should not delay biopsy of a clinically suspicious abnormality. [id number] Electronically Signed: Doug Kennedy MD at 11:57 EST , Service support ,
== END ==
PROVIDERS: PCP Family Medicine; Referring Provider Internal Medicine Medical Oncology; Visit Provider Internal Medicine Medical Oncology
DX: Z12.31 Encounter for screening mammogram for malignant neoplasm of breast (principal); Z85.3 Personal history of malignant neoplasm of breast
CPT/HCPCS: 77063; 77067

== ENCOUNTER → 2021-01-28 09:40 | Outpatient (CLI) | payer MEDICARE, SELFPAY ==
[2021-01-28 12:42] LABS: Anion Gap 8 (5-15); BUN 21 mg/dL (7-18); Calcium,Total 8.8 mg/dL (8.5-10.1); Chloride 106 mmol/L (98-107); Cholesterol 185 mg/dL (200); Creatinine, Serum 0.96 mg/dL (0.55-1.02); EST Glomerular Filtration Rate 62 mL/min (>60); Est Glom Filt Rate - Afr Amer 75 mL/min (>60); Glucose 152 mg/dL (74-106); High Density Lipoprotein 51 mg/dL; Potassium 3.9 mmol/L (3.5-5.1); Sodium Level 140 mmol/L (136-145); Thyroid Stim Hormone (TSH) 3.44 uIU/mL (0.358-3.74); Triglycerides 176 mg/dL; Very Low Density Lipoprotein 35 mg/dL (5-40)
== END ==
PROVIDERS: PCP Family Medicine; Referring Provider Family Medicine; Visit Provider Family Medicine
DX: E11.22 Type 2 diabetes mellitus with diabetic chronic kidney disease (principal); E03.9 Hypothyroidism, unspecified; N18.9 Chronic kidney disease, unspecified
CPT/HCPCS: 36415; 80048; 80061; 84443

== ENCOUNTER → 2021-10-05 | Outpatient (CLI) | payer MEDICARE, SELFPAY ==
[2021-10-05 10:39] LABS: Anion Gap 6 (5-15); BUN 19 mg/dL (7-18); BUN/Creat Ratio 15.3 RATIO (10-20); Calcium,Total 9.1 mg/dL (8.5-10.1); Chloride 106 mmol/L (98-107); Creatinine, Serum 1.24 mg/dL (0.55-1.02); EST Glomerular Filtration Rate 46 mL/min (>60); Est Glom Filt Rate - Afr Amer 55 mL/min (>60); Glucose 179 mg/dL (74-106); Potassium 3.7 mmol/L (3.5-5.1); Sodium Level 140 mmol/L (136-145); Thyroid Stim Hormone (TSH) 7.78 uIU/mL (0.358-3.74)
== END | disposition home or self-care (01) ==
LOC: MFPLAB 09:42
PROVIDERS: PCP Family Medicine; Visit Provider Family Medicine
DX: R79.89 Other specified abnormal findings of blood chemistry (principal); E11.9 Type 2 diabetes mellitus without complications
CPT/HCPCS: 36415; 80048; 84439; 84443

== ENCOUNTER → 2022-01-05 | Outpatient (CLI) | payer MEDICARE, SELFPAY ==
[2022-01-10 18:40] LABS: HPV APTIMA, High Risk Negative (Negative)
== END | disposition home or self-care (01) ==
LOC: LABSPEC 10:22
PROVIDERS: PCP Family Medicine; Visit Provider Student in an Organized Health Care Education/Training Program
DX: Z12.4 Encounter for screening for malignant neoplasm of cervix (principal)
CPT/HCPCS: 87624; 88175; G0145

== ENCOUNTER → 2022-01-07 | Outpatient (CLI) | payer MEDICARE, SELFPAY ==
[2022-01-07 16:03] LABS: Anion Gap 5 (5-15); BUN 21 mg/dL (7-18); BUN/Creat Ratio 22.5 RATIO (10-20); Calcium,Total 8.9 mg/dL (8.5-10.1); Chloride 106 mmol/L (98-107); Creatinine, Serum 0.93 mg/dL (0.55-1.02); EST Glomerular Filtration Rate 63 mL/min (>60); Est Glom Filt Rate - Afr Amer 76 mL/min (>60); Glucose 147 mg/dL (74-106); Potassium 4.3 mmol/L (3.5-5.1); Sodium Level 137 mmol/L (136-145); T4 Free Direct 1.51 ng/dL (0.76-1.46); Thyroid Stim Hormone (TSH) 0.41 uIU/mL (0.358-3.74)
== END | disposition home or self-care (01) ==
LOC: MFPLAB 11:29
PROVIDERS: PCP Family Medicine; Referring Provider Family Medicine; Visit Provider Family Medicine
DX: E11.59 Type 2 diabetes mellitus with other circulatory complications (principal); R79.89 Other specified abnormal findings of blood chemistry
CPT/HCPCS: 36415; 80048; 84439; 84443

== ENCOUNTER → 2022-01-22 | Outpatient (CLI) | payer MEDICARE, SELFPAY ==
--- NOTE | 2022-01-22 10:57 | BI_ITS ---
MAMMOGRAPHY - UNILATERAL SCREENING: LEFT BREAST REASON FOR EXAM: Female, 71 years old. Routine annual screening examination (unilateral). PERTINENT HISTORY: Personal history of breast cancer. Prior right mastectomy with the chemotherapy. Mother with breast cancer. TECHNIQUE: Digital unilateral breast hilary (3D mammographic acquisition) in the CC and MLO projections. 2-D mediolateral oblique (MLO) and craniocaudad (CC) views of both breasts were obtained. CAD: Full Field Digital Mammography with Computer Added Detection was performed. COMPARISON: Comparison is made with prior study dated 01/21/2021 and 01/21/2020. FINDINGS: Breast Composition: The breasts are heterogeneously dense, which may obscure small masses. There are no dominant masses or suspicious calcifications. No other significant abnormalities are identified. There has been no significant change since the prior study. BI/SCREEN MAMM (CAD) W/HILARY UNI L IMPRESSION: Stable unilateral screening mammogram. Yearly follow-up mammogram recommended. (A) ASSESSMENT CATEGORY: BIRADS Category 1: Negative. A letter regarding these results will be sent to the patient by the facility within 30 days. Approximately 10% of breast cancers are not detected by mammography. A normal mammogram should not delay biopsy of a clinically suspicious abnormality. [id number] Electronically Signed: Doug Kennedy MD at 11:57 EST ,
== END | disposition home or self-care (01) ==
LOC: OPBI 10:56
PROVIDERS: PCP Family Medicine; Referring Provider Internal Medicine Medical Oncology; Visit Provider Internal Medicine Medical Oncology
DX: Z12.31 Encounter for screening mammogram for malignant neoplasm of breast (principal); Z90.11 Acquired absence of right breast and nipple; Z80.3 Family history of malignant neoplasm of breast; Z92.21 Personal history of antineoplastic chemotherapy
CPT/HCPCS: 77063; 77067

== ENCOUNTER → 2022-02-03 | Outpatient (CLI) | payer MEDICARE, SELFPAY ==
--- NOTE | 2022-02-03 13:50 | RAD_ITS ---
STUDY: X-RAY CHEST REASON FOR EXAM: Female, 71 years old. HX OF BREAST CA TECHNIQUE: Frontal and lateral views of the chest. COMPARISON: May 16, 2017 FINDINGS: Calcified granuloma right lower lobe appears stable. Periarticular calcifications right shoulder. The lungs are clear and expanded. There is no demonstrated pleural abnormality. Normal size heart. Normal mediastinum and sasha. Normal visualized pulmonary arteries. Normal visualized aortic arch and descending thoracic aorta. Normal visualized thoracic spine. Normal visualized ribs, clavicles, and shoulders. There is no demonstrated abnormality of the visualized soft tissue structures of the upper abdomen. RAD/Chest PA and Lateral IMPRESSION: No acute disease Electronically Signed: Tom Machado MD at 23:46 EST ,
== END | disposition home or self-care (01) ==
LOC: RAD 13:49
PROVIDERS: PCP Family Medicine; Referring Provider Internal Medicine Medical Oncology; Visit Provider Internal Medicine Medical Oncology
DX: Z85.3 Personal history of malignant neoplasm of breast (principal)
CPT/HCPCS: 36415; 71046; 80053; 83615; 85025

== ENCOUNTER → 2022-04-08 | Outpatient (CLI) | payer MEDICARE, SELFPAY ==
[2022-04-08 13:05] LABS: Anion Gap 7 (5-15); BUN 23 mg/dL (7-18); BUN/Creat Ratio 22.3 RATIO (10-20); Calcium,Total 8.5 mg/dL (8.5-10.1); Chloride 110 mmol/L (98-107); Creatinine, Serum 1.03 mg/dL (0.55-1.02); EST Glomerular Filtration Rate 56 mL/min (>60); Est Glom Filt Rate - Afr Amer 68 mL/min (>60); Glucose 137 mg/dL (74-106); Potassium 4.2 mmol/L (3.5-5.1); Sodium Level 141 mmol/L (136-145); T4 Free Direct 1.37 ng/dL (0.76-1.46); Thyroid Stim Hormone (TSH) 0.97 uIU/mL (0.358-3.74)
== END | disposition home or self-care (01) ==
LOC: MFPLAB 10:59
PROVIDERS: PCP Family Medicine; Referring Provider Family Medicine; Visit Provider Family Medicine
DX: E11.22 Type 2 diabetes mellitus with diabetic chronic kidney disease (principal); N18.9 Chronic kidney disease, unspecified; E03.9 Hypothyroidism, unspecified
CPT/HCPCS: 36415; 80048; 84439; 84443

== ENCOUNTER → 2022-10-06 | Outpatient (CLI) | payer MEDICARE, SELFPAY ==
[2022-10-06 15:28] LABS: Vitamin D,25 Hydroxy 48.2 ng/mL
[2022-10-06 15:35] LABS: ALB/GLOB Ratio 1.1 RATIO (0.9-2.4); AST(SGOT) 37 U/L (15-37); Alanine Aminotransfer ALT/SGPT 59 U/L (13-56); Alkaline Phosphatase 123 U/L (45-117); Anion Gap 7 (5-15); BUN 20 mg/dL (7-18); BUN/Creat Ratio 19.6 RATIO (10-20); Calcium,Total 9.2 mg/dL (8.5-10.1); Chloride 104 mmol/L (98-107); Creatinine, Serum 1.02 mg/dL (0.55-1.02); EST Glomerular Filtration Rate 57 mL/min (>60); Est Glom Filt Rate - Afr Amer 69 mL/min (>60); Globulin 3.5 g/dL (2.2-4.2); Glucose 117 mg/dL (74-106); Potassium 4.3 mmol/L (3.5-5.1); Protein, Total 7.5 g/dL (6.4-8.2); Sodium Level 136 mmol/L (136-145); Thyroid Stim Hormone (TSH) 0.41 uIU/mL (0.358-3.74)
== END | disposition home or self-care (01) ==
LOC: MFPLAB 12:14
PROVIDERS: PCP Family Medicine; Visit Provider Family Medicine
DX: Z00.00 Encounter for general adult medical examination without abnormal findings (principal); E11.65 Type 2 diabetes mellitus with hyperglycemia; E03.9 Hypothyroidism, unspecified; M85.80 Other specified disorders of bone density and structure, unspecified site
CPT/HCPCS: 36415; 80053; 82306; 84443

== ENCOUNTER → 2022-10-26 | Outpatient (CLI) | payer MEDICARE, SELFPAY ==
--- NOTE | 2022-10-26 12:59 | BD_ITS ---
STUDY: DUAL ENERGY X-RAY ABSORPTIOMETRY / DXA REASON FOR EXAM: Female, 72 years old. [id number] TECHNIQUE: Bone Mineral Density (BMD) measurements of lumbar spine and bilateral hips were obtained. COMPARISON: Comparison is made with prior study dated October 16, 2020. FINDINGS: Lumbar Spine (L1-L4): g/cm2 (0.944) / T-score (-0.9) / Z-score (1.2) Findings are suggestive of normal bone density with a low fracture risk. Left Femur Total: g/cm2 (0.877) / T-score (-0.5) / Z-score (1.0) Left Femoral Neck: g/cm2 (0.702) / T-score (-1.3) / Z-score (0.5) Right Femur Total: g/cm2 (0.817) / T-score (-1.0) / Z-score (0.5) Right Femoral Neck: g/cm2 (0.655) / T-score (-1.7) / Z-score (0.1) The T-Scores on the most recent prior examination were: Lumbar Spine (L1-L4): There has been improvement of bone density since the previous examination. Left Femur Total: which represents an improvement of 0.2%. Right Femur Total: which represents an improvement of 0.2%. BD/Dexa Bone Density Study IMPRESSION: The patient is considered osteopenic as outlined below according to World Wayne Organization (WHO) criteria with a moderate fracture risk. There has been improvement of bone density since the previous examination. Reference Information: The T-score is the number of standard deviations above or below the standard which is normal for young adults at their peak bone mineral density. The World Health Organization (WHO) interprets the T-scores as follows: Above -1 Normal bone density Between -1 and -2.5 Osteopenia Equal to / or below -2.5 Osteoporosis As a practical clinical guideline, osteopenia may be graded as follows: Mild -1 through -1.5 Moderate -1.6 through -2.0 Severe -2.1 through -2.4 The Z-score is the number of standard deviations above or below age-matched controls. A Z-score of less than -1.5 would be considered abnormal. References: 1. NIH Osteoporosis and Related Bone Diseases www osteo.org 2. International Society for Clinical Densitometry www iscd.org 3. National Osteoporosis Foundation www nof.org Electronically Signed: Doug Kennedy MD at 15:28 EDT ,
== END | disposition home or self-care (01) ==
LOC: OPBD 12:53
PROVIDERS: PCP Family Medicine; Referring Provider Family Medicine; Visit Provider Family Medicine
DX: Z78.0 Asymptomatic menopausal state (principal)
CPT/HCPCS: 77080

== ENCOUNTER → 2023-01-24 | Outpatient (CLI) | payer MEDICARE, SELFPAY ==
--- NOTE | 2023-01-24 10:05 | BI_ITS ---
MAMMOGRAPHY - UNILATERAL SCREENING: LEFT BREAST REASON FOR EXAM: Female, 72 years old. Routine annual screening examination (unilateral). PERTINENT HISTORY: Personal history of breast cancer. Prior right mastectomy. History of prior radiation therapy and chemotherapy. Mother with breast cancer. TECHNIQUE: Digital unilateral breast hilary (3D mammographic acquisition) in the CC and MLO projections. 2-D mediolateral oblique (MLO) and craniocaudad (CC) views of both breasts were obtained. CAD: Full Field Digital Mammography with Computer Added Detection was performed. COMPARISON: Comparison is made with prior study January 22, 2022 and January 21, 2021. FINDINGS: Breast Composition: The breasts are heterogeneously dense, which may obscure small masses. There are no dominant masses or suspicious calcifications. No other significant abnormalities are identified. There has been no significant change since the prior study. BI/SCREEN MAMM (CAD) W/HILARY UNI L IMPRESSION: Stable unilateral screening mammogram. Yearly follow-up mammogram recommended. (A) ASSESSMENT CATEGORY: BIRADS Category 1: Negative. A letter regarding these results will be sent to the patient by the facility within 30 days. Approximately 10% of breast cancers are not detected by mammography. A normal mammogram should not delay biopsy of a clinically suspicious abnormality. [id number] Electronically Signed: Doug Kennedy MD at 9:24 EST ,
== END | disposition home or self-care (01) ==
LOC: OPBI 10:04
PROVIDERS: PCP Family Medicine; Referring Provider Internal Medicine Medical Oncology; Visit Provider Internal Medicine Medical Oncology
DX: Z12.31 Encounter for screening mammogram for malignant neoplasm of breast (principal)
CPT/HCPCS: 77063; 77067

== ENCOUNTER 2023-03-09 19:20 | Inpatient (IN) | payer MEDICARE, SELFPAY ==
[2023-03-09] VITALS (11 sets, daily range): BP systolic 130–184; BP diastolic 59–114; PULSE 85–110; RESP 15–25; TEMP 36.6–36.8; O2SAT 97–100; BMI 30.2; BMI 30.4
--- NOTE | 2023-03-09 19:35 | RAD_ITS ---
STUDY: X-RAY CHEST REASON FOR EXAM: Female, 72 years old. chest pain TECHNIQUE: Single AP portable view of the chest. COMPARISON: 02/03/2022. FINDINGS: Redemonstrated is the right midlung calcified granuloma measuring 8.7 mm. There is stable right midlung atelectasis, remainder of the lung alvarez are clear. There is no demonstrated pleural abnormality. Normal size heart. Normal mediastinum and sasha. Normal visualized pulmonary arteries. There is atherosclerotic calcification of the aortic arch with tortuosity. There are diffuse degenerative changes of the visualized thoracic spine. There is degenerative osteoarthritis of the bilateral shoulders, right more than left. There is no demonstrated abnormality of the visualized soft tissue structures of the upper abdomen. RAD/Chest 1 View (Portable) IMPRESSION: No acute interval change. Electronically Signed: Zeny Rowell MD at 20:15 EST ,
--- NOTE | 2023-03-09 19:41 | ED.RN ---
alerted charge nurse,natalia deleon of pt's anticipated arrival and was told no room available. Did initatiate CP protocaol. STEMI ALERT called by Dr Jorge. pt then placed in room 3.
[2023-03-09 19:43] LABS: Absolute Lymphocyte Count 1.97 X10^3/uL (0.83-4.51); Absolute Neutrophil Count 10.5 X10^3/uL (2.0-7.7); Basophil# 0.05 X10^3/uL; Basophil% 0.4 % (0-1); Eosinophil# 0.03 X10^3/uL; Eosinophils% 0.2 % (0-5); Hematocrit 37.2 % (37-47); Hemoglobin 12.3 g/dL (12.0-15.0); Lymphocyte # 1.97 X10^3/ul (0.83-4.51); Lymphocyte % 14.5 % (19-41); Mean Corp Hgb Conc 33.1 g/dL (32-36); Mean Corpuscular Hgb 29.8 pg (27.0-32.0); Mean Corpuscular Volume 90.1 fL (81-99); Mean Platelet Vol. 9.7 fl (6.2-12.0); Monocyte# 1.01 X10^3/uL; Monocyte% 7.4 % (0-10); NRBC Flagged by Analyzer 0 % (0-5); Neutrophil # 10.48 X10^3/uL (2.7-7.7); Neutrophil % 77.1 % (47-70); Platelet Count 362 K/mm3 (150-450); RBC Distribution Width CV 13.4 % (11.6-14.6); Red Blood Count 4.13 M/mm3 (4.2-5.4); White Blood Count 13.6 K/mm3 (4.4-11.0)
--- NOTE | 2023-03-09 19:44 | ED.VIS.CHEST ---
HPI History of Present Illness Chief Complaint: Chest Pain Detail of Chief Complaint: Heartburn/pressure Informant: patient Onset/Context/Timing Onset: Today ( since 729 ) Activity at onset: sudden Timing: Continuous Quality: Positive for Burning and Pressure Location: Substernal Current Severity: Mild Maximum Severity: Severe Worsened By: Nothing Relieved By: Nothing Associated Symptoms: Positive for Nausea and Dyspnea Narrative Narrative: Patient is a 72-year-old woman status post mastectomy, right, due to ductal carcinoma with history of hypertension, type 2 diabetes, hypothyroidism who presents because of elevated troponin of 938. She was seen earlier today by Dr. Jean Gooden. There was concern she had a flutter on the monitor. I was handed her EKG from triage. Patient has an acute ST elevation TN. STEMI was called. Spoke with Dr. Romero who requested EKG to be sent to him. Prior Similar Symptoms: No Recent Illness/Hospitalization: No CVD Risk Factors: Positive for Hypertension, Diabetes and Hypercholesterolemia PE Risk Factors: Negative for Recent Travel/Surgery, Recent Immobilization, Prior DVT or PE, Cancer (Remote history of cancer.) or OCP + Smoking + >/=35 TAD Risk Factors: Positive for Hypertension and Family History; Negative for Marfan's Syndrome [facility] Medical History (Updated 03/09/23 @ 19:[address] Leoncio Jorge MD) Benign breast cyst in female Breast cancer Breast lump in female Depression Ductal carcinoma of breast History of breast cancer History of right breast cancer Hyperlipidemia Hypertension Hypothyroidism Skin cancer Sleep-disordered breathing Thyroid disease Trimalleolar fracture of right ankle Type 2 diabetes mellitus Home Medications atorvastatin 40 mg tablet 40 mg PO QHS 06/02/16 [History Last Taken Unknown] levothyroxine 100 mcg tablet 112 mcg PO DAILY 06/02/16 [History Last Taken 05/16/17 07:30 112 MCG] niacin 500 mg tablet,extended release 24 hr 1,000 mg PO QHS 06/02/16 [History Last Taken Unknown] pramipexole 0.5 mg tablet 0.5 mg PO BID 06/02/16 [History Last Taken 05/16/17 07:30 0.5 MG] losartan 50 mg tablet 50 mg PO DAILY 08/03/16 [History Last Taken 05/16/17 07:30 50 MG] omeprazole 20 mg capsule,delayed release 40 mg PO DAILY 08/03/16 [History Last Taken 05/16/17 07:30 40 MG] calcium carbonate 600 mg-vitamin D3 10 mcg (400 unit) chewable tablet 1 ea PO BID 05/12/17 [History Last Taken Unknown] garyvuaqxoge-Ij-djzq-minerals 1 ea PO DAILY 05/12/17 [History Last Taken Unknown] naproxen sodium 220 mg tablet 440 mg (2 x 220 mg) PO BID #60 tabs 05/17/17 [Rx Last Taken 05/12/17] acetaminophen 500 mg tablet 500 mg PO BID PRN PRN Pain Or Fever 08/14/19 [History Last Taken Unknown] amlodipine 5 mg tablet 5 mg PO DAILY 08/14/19 [History Last Taken Unknown] metformin 500 mg tablet 1,000 mg PO BID 02/09/21 [History Last Taken Unknown] Allergy/AdvReac Type Severity Reaction Status Date / Time Penicillins [PCN] Allergy Severe Hives Verified 03/09/23 19:23 bee venom protein (honey bee) Allergy Anaphylaxis Verified 03/09/23 19:23 Family History Mother Heart disease Breast cancer Lung cancer Hyperlipidemia Arthritis Diabetes Hypertension Kidney disease Surgical History H/O mastectomy History of ankle surgery History of Mohs micrographic surgery for skin cancer History of reconstruction of right breast Hx of colonoscopy Hx of right mastectomy Hx of tonsillectomy Status post open reduction with internal fixation (ORIF) of fracture of ankle Social History Smoking Status: Never smoker second hand exposure: No alcohol intake: never substance use type: does not use caffeine: Yes what type of physical activity do you participate in: none frequency: does not exercise ROS ROS ED Constitutional Constitutional ED: Denies chills, fever(s), subjective, sweats or weight loss Eyes Eyes: Reports none; Denies blurry vision or change in vision ENT ENT ED: Denies ear pain or rhinorrhea Cardiovascular Cardiovascular: Reports as per HPI; Denies orthopnea or paroxysmal nocturnal dyspnea Respiratory/Chest Respiratory/Chest: Reports dyspnea and dyspnea on exertion; Denies cough, orthopnea, paroxysmal nocturnal dyspnea or sputum Gastrointestinal Gastrointestinal: Denies abdominal pain, melena, nausea or vomiting Genitourinary Genitourinary ED: Denies dysuria, hematuria or urinary frequency Musculoskeletal Musculoskeletal: Denies arthralgias or myalgias Integumentary Denies rash Neurologic Neurologic: Denies headache(s), paresthesias or weakness Endocrine Endocrinology: Denies cold intolerance or heat intolerance Hematologic/Lymphatic Hematologic/Lymphatic: Denies easy bleeding or easy bruising EXAM Physical Exam Const Vital Signs: 03/09/23 19:21 03/09/23 19:24 03/09/23 19:47 Temperature 97.9 F Temperature Source Temporal Pulse Rate 109 H 110 H Respiratory Rate 18 17 Blood Pressure 174/84 H 184/95 H Blood Pressure Mean 114 124 Pulse Ox 99 100 99 Oxygen Delivery Method Room Air Nasal Cannula Oxygen Flow Rate (L/min) 2 03/09/23 19:58 03/09/23 20:01 Temperature Temperature Source Pulse Rate Respiratory Rate Blood Pressure 150/93 H 141/86 H Blood Pressure Mean 112 Pulse Ox Oxygen Delivery Method Oxygen Flow Rate (L/min) Positive well nourished, well developed and obese General Appearance ED: well developed and NAD; Negative for pallor Nutritional Appearance: obese HEENT Reports TM's clear and moist mucous membranes normocephalic and atraumatic Tympanic Membrane ED: Yes TM's clear Eyes PERRL and EOMs intact bilaterally General Eye ED: Negative for pale conjunctiva or scleral icterus Neck no lymphadenopathy, supple and no JVD Chest Wall inspection of chest normal Chest Narrative: Status postmastectomy on the right. Resp normal respiratory effort and clear to auscultation bilaterally Cardio regular rhythm, S1 normal heart sound, S2 normal heart sound and no murmurs Rate: tachycardic Peripheral Pulses: pulses 2+ throughout GI normal to inspection, nondistended, normoactive bowel sounds, soft to palpation, non-tender, non-distended and no masses; Negative for hepatosplenomegaly Back/Spine no CVA tenderness Extremity normal to inspection General Extremety ED: Negative for edema General Extremity: Negative for edema Neuro oriented x3, CN's II-XII intact bilaterally, no sensory deficits noted and gait normal Sensorium / Orientation: awake and alert Motor Exam: strength 5/5 throughout Psych mental status grossly normal Skin no rashes or lesions noted and no wounds General Skin Exam: Negative for pallor Heart Score History: Highly Suspicious ECG: Nonspecific Repolarization Age: >/= 65 years Risk Factors: >/= 3 Risk Factors or History of CAD Troponin: >/=3 x Normal Limit Score: 9 MDM MDM MDM Narrative Medical decision making narrative: STEMI was called based on EKG. There are no prior to compare. Outpatient troponin was 938. History & Record Review Discussion w/independent historian: Patient, Significant other and Other (Dr. Arturo Orozco called into informed that her troponin was 938.) Lab Data Attestation: I reviewed the patient's lab results. Lab results narrative: Troponin was greater than 9000. Labs: Laboratory Results - last 24 hr 03/09/23 19:35 WBC 13.6 H RBC 4.13 L Hgb 12.3 Hct 37.2 MCV 90.1 MCH 29.8 MCHC 33.1 RDW Std Deviation 44.0 H RDW Coeff of Nilda 13.4 Plt Count 362 MPV 9.7 Immature Gran % (Auto) 0.400 Neut % (Auto) 77.1 H Lymph % (Auto) 14.5 L Saline % (Auto) 7.4 Eos % (Auto) 0.2 Baso % (Auto) 0.4 Absolute Neuts (auto) 10.5 H Absolute Lymphs (auto) 1.97 Nucleated RBC % 0 Radiography Chest X-Ray - ED: 1 View and Read by ED Physician (Perihilum is remarked for granulomatous disease. There is mild chronic changes noted. There is no effusion or pneumothorax. Cardiac silhouette size normal. Osseous structures unremarkable. This was apparently reviewed interpreted by me at 1953.) Diagnostic Testing: Clinical Impression(s) from Imaging Studies Chest X-Ray 03/09/23 19:35 IMPRESSION: No acute interval change. Electronically Signed: Zeny Rowell MD at 20:15 EST , EKG Initial EKG: Attestation: I personally reviewed and interpreted this EKG as follows: Interpretation: Sinus Tachycardia (Sinus tachycardia rate of 106. Patient has a left bundle branch block and ST elevation that is concerning for an inferior ST elevation TN. Left bundle may be new which is also concerning. There are no comparisons.) Management Discussion w/another healthcare provider: Bacteriologist Industrial (Spoke with shoe stamper. Patient was treated with aspirin, heparin and Brilinta. Suction Plate Roller Hand has been called in.) Critical Care Time Critical Care Time: Yes Critical care time (excluding procedures): 30-74 minutes (31), Including time spent: (History, physical, documentation, treatment for ST elevation TN inferior leads, discussion with hospitalist, discussion with PCP, discussion with batch roller operator), Discussing w/Patient &/or Family/Grind Operator, Discussing w/Consultants and Arranging Admission or Transfer Discharge Plan Dx/Rx/DC Orders Clinical Impression: ST elevation (STEMI) myocardial infarction, Hypertension, Type 2 diabetes mellitus, Hypothyroidism Disposition Disposition: Acute Care Hospital [facility] Discharge Date/Time: 03/09/23 20:24
[2023-03-09] MEDS: Heparin Injection (Vial) 5,000 UNIT/ML VIAL 4000 UNIT IV (19:50)
[2023-03-09] MEDS: TICAGRELOR 90 MG TABLET 180 MG PO (19:50)
--- NOTE | 2023-03-09 20:21 | PCM.HP.STD ---
HPI - General General Date of Admission: 03/09/23 Date of Service: 03/09/23 Chief Complaint: Chest Pain with STEMI. 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 Ms. Mccain reports her symptoms began with the abrupt onset of chest pain at approximately 7:30 AM but the pain was continuous, burning, substernal, waxing and waning with a heart burn/chest pressure sensation with nothing seeming to make the pain better or worse. She was then seen earlier in the day by Dr. Jean Gooden with concern for possible atrial flutter and NV. In the ER she was noted to have an elevated initial troponin of 938 pg/mL with an EKG that revealed acute ST elevation consistent with STEMI. She was then taken for emergent left heart cath by Dr. Hammonds with patient noted to have a ~100% RCA occulsion with subsequent JHON placement and she was then transferred to the ICU for ongoing care for a stay that is expected to be greater than 48 hours. [facility] Medical History Benign breast cyst in female Breast cancer Breast lump in female Depression Ductal carcinoma of breast History of breast cancer History of right breast cancer Hyperlipidemia Hypertension Hypothyroidism Skin cancer Sleep-disordered breathing Thyroid disease Trimalleolar fracture of right ankle Type 2 diabetes mellitus Home Medications atorvastatin 40 mg tablet 40 mg PO QHS 06/02/16 [History Last Taken Unknown] levothyroxine 100 mcg tablet 112 mcg PO DAILY 06/02/16 [History Last Taken 05/16/17 07:30 112 MCG] niacin 500 mg tablet,extended release 24 hr 1,000 mg PO QHS 06/02/16 [History Last Taken Unknown] pramipexole 0.5 mg tablet 0.5 mg PO BID 06/02/16 [History Last Taken 05/16/17 07:30 0.5 MG] losartan 50 mg tablet 50 mg PO DAILY 08/03/16 [History Last Taken 05/16/17 07:30 50 MG] omeprazole 20 mg capsule,delayed release 40 mg PO DAILY 08/03/16 [History Last Taken 05/16/17 07:30 40 MG] calcium carbonate 600 mg-vitamin D3 10 mcg (400 unit) chewable tablet 1 ea PO BID 05/12/17 [History Last Taken Unknown] iqlupkxisnem-Tp-daox-minerals 1 ea PO DAILY 05/12/17 [History Last Taken Unknown] naproxen sodium 220 mg tablet 440 mg (2 x 220 mg) PO BID #60 tabs 05/17/17 [Rx Last Taken 05/12/17] acetaminophen 500 mg tablet 500 mg PO BID PRN PRN Pain Or Fever 08/14/19 [History Last Taken Unknown] amlodipine 5 mg tablet 5 mg PO DAILY 08/14/19 [History Last Taken Unknown] metformin 500 mg tablet 1,000 mg PO BID 02/09/21 [History Last Taken Unknown] Allergy/AdvReac Type Severity Reaction Status Date / Time Penicillins [PCN] Allergy Severe Hives Verified 03/09/23 19:23 bee venom protein (honey bee) Allergy Anaphylaxis Verified 03/09/23 19:23 Family History Mother Heart disease Breast cancer Lung cancer Hyperlipidemia Arthritis Diabetes Hypertension Kidney disease Surgical History H/O mastectomy History of ankle surgery History of Mohs micrographic surgery for skin cancer History of reconstruction of right breast Hx of colonoscopy Hx of right mastectomy Hx of tonsillectomy Status post open reduction with internal fixation (ORIF) of fracture of ankle Social History Smoking Status: Never smoker second hand exposure: No alcohol intake: never substance use type: does not use caffeine: Yes what type of physical activity do you participate in: none frequency: does not exercise ROS ROS Narrative Review of systems: Constitutional: Patient denies fevers or chills. Eyes: Patient denies visual changes or discharge from eyes. ENT: Patient denies runny nose, sore throat or ear pain. Cardiovascular: Patient admits to chest pain as noted above. She denies orthopnea or paroxysmal nocturnal dyspnea. Respiratory: Patient admits to shortness of breath with minimal exertion but denies cough. Gastrointestinal: Patient denies abdominal pain, nausea, vomiting, diarrhea or constipation. Genitourinary: Patient denies dysuria, hematuria or urinary frequency. Musculoskeletal: Patient denies arthralgias or myalgias. Integumentary: Patient denies rash or abscess. Neurologic: Patient denies headache, paresthesias or focal neurologic weakness. Endocrine: Patient denies cold intolerance, heat intolerance, polyuria, polyphagia or polydipsia. Hematologic: Patient denies easy bleeding or easy bruisability. Psychiatric: Patient denies uncontrolled depression or anxiety. 14 point review systems otherwise negative except for positives noted above in HPI. Vital Signs Vital Signs Vital Signs: 03/09/23 19:21 03/09/23 19:24 03/09/23 19:47 Temperature 97.9 F Temperature Source Temporal Pulse Rate 109 H 110 H Respiratory Rate 18 17 Blood Pressure 174/84 H 184/95 H Blood Pressure Mean 114 124 Pulse Ox 99 100 99 Oxygen Delivery Method Room Air Nasal Cannula Oxygen Flow Rate (L/min) 2 03/09/23 19:58 03/09/23 20:01 Temperature Temperature Source Pulse Rate Respiratory Rate Blood Pressure 150/93 H 141/86 H Blood Pressure Mean 112 Pulse Ox Oxygen Delivery Method Oxygen Flow Rate (L/min) Weight Weight: 182 lb 1 oz Body Mass Index (BMI) 30.2 Physical Exam Const alert, oriented x3, no apparent distress and average body habitus Constitutional Narrative: Patient is in good spirits. General Appearance: cooperative HEENT normocephalic, head/scalp atraumatic, hearing grossly normal bilaterally and moist oral mucous membranes Eyes PERRL and EOMs intact bilaterally Neck no lymphadenopathy and supple Resp normal respiratory effort, no retractions, no use of accessory muscles and clear to auscultation bilaterally Cardio regular rate and regular rhythm Cardio Narrative: Status postmastectomy on the right. GI normal to inspection, nondistended, normoactive bowel sounds, soft to palpation, non-tender and non-distended GI Narrative: Obese. Extremity normal to inspection Skin Skin Narrative: Status postmastectomy on the right. Patient has no evidence of rash at this time. Neuro oriented x3, CN's II-XII intact bilaterally, moves all extremities and no focal motor deficits Sensorium / Orientation: awake, alert, oriented to person, oriented to place and oriented to time Speech: speech normal Motor Exam: strength 5/5 throughout Psych affect normal Results Medical Records Data Attestation: I reviewed the patient's medical records Lab / Micro Data Attestation: I reviewed the patient's lab results. 03/10/23 03:09 03/10/23 03:09 Labs: Laboratory Results - last 24 hr 03/09/23 19:35: WBC 13.6 H, RBC 4.13 L, Hgb 12.3, Hct 37.2, MCV 90.1, MCH 29.8, MCHC 33.1, RDW Std Deviation 44.0 H, RDW Coeff of Nilda 13.4, Plt Count 362, MPV 9.7, Immature Gran % (Auto) 0.400, Neut % (Auto) 77.1 H, Lymph % (Auto) 14.5 L, Miller % (Auto) 7.4, Eos % (Auto) 0.2, Baso % (Auto) 0.4, Absolute Neuts (auto) 10.5 H, Absolute Lymphs (auto) 1.97, Nucleated RBC % 0 Imagaing Radiology Impression Chest X-Ray 03/09/23 19:35 IMPRESSION: No acute interval change. Electronically Signed: Zeny Rowell MD at 20:15 EST , Assessment & Plan Assessment/Plan (1) ST elevation (STEMI) myocardial infarction: QUALIFIERS: Involved coronary artery: unspecified coronary artery Qualified Code(s): I21.3 - ST elevation (STEMI) myocardial infarction of unspecified site PLAN: Plan 1. STEMI; evidenced by acute ST elevation on EKG and initial troponin of 938 pg/mL - Admit to ICU. Continue aspirin, Plavix, statin and IV heparin. Check echocardiogram to evaluate left ventricular ejection fraction. Finally, cardiology consult from Dr. Hammonds is greatly appreciated with the RCA for ~100% occlusion at left heart cath. 2. Essential hypertension - Continue home regimen as previous please give as needed IV hydralazine for systolic blood pressure greater than 160 mmHg. 3. Hyperlipidemia - Resume statin and check lipid profile in light of #1. 4. Hypothyroidism - Continue Synthroid and check TSH. 5. Obesity; with BMI of 30.3 this admission - Weight loss will be recommended. 6. Diabetes mellitus type 2; of unknown control on metformin - ADA/cardiac diet. Fingerstick blood sugars before every meal and at bedtime + scale insulin. Check hemoglobin A1c to objectively assess quality of diabetic control in light of #1. 7. History of ductal carcinoma of the right breast; status post right mastectomy (2004) - Noted. 8. History of skin cancer; s/p Mohs microsurgery procedure - Noted. 9. History of depression - Continue home medications plus give as needed Xanax for breakthrough symptoms. 10. Restless leg syndrome - Resume pramipexole as previous. 11. GERD - Continue PPI. 12. Osteoarthritis - Stable. Give Tylenol as needed pain. 13. DVT prophylaxis - Patient already on IV heparin for #1. Total time: Approximately 55 minutes. Charges/Coding Visit Charges Inpatient E&M: 41077 Init Hosp L2
[2023-03-09 20:32] LABS: Anion Gap 6 (5-15); BUN 22 mg/dL (7-18); BUN/Creat Ratio 15.9 RATIO (10-20); Calcium,Total 9.3 mg/dL (8.5-10.1); Chloride 107 mmol/L (98-107); Creatinine, Serum 1.38 mg/dL (0.55-1.02); EST Glomerular Filtration Rate 40 mL/min (>60); Est Glom Filt Rate - Afr Amer 49 mL/min (>60); Estimated Creatinine Clearance 34.13 ml/min; Glucose 144 mg/dL (74-106); Potassium 4.3 mmol/L (3.5-5.1); Sodium Level 139 mmol/L (136-145); Troponin-I HS (w/2H Reflex) 9290 pg/mL (3.0-54.0)
--- NOTE | 2023-03-09 21:16 | ECHOCS_ITS ---
Reason For Study: Chest Pain Procedure This was a 2D Doppler, Color Flow transthoracic echocardiogram. The study was technically difficult. Contrast injection was performed. Exam performed portable in ICU/CCU. Left Ventricle Normal size and thickness. Severe inferior, inferior septal and posterior basal hypokinesis. Estimated LVEF 45%. Stage 1 diastolic dysfunction. Right Ventricle Normal right ventricle. Atria The left and right atria are normal. Mitral Valve Mild-Moderate (1-2+) mitral valve insufficiency. Tricuspid Valve Mild tricuspid valve insufficiency. Normal pulmonary artery pressure. Aortic Valve Trisinus/trileaflet aortic valve. Trivial aortic valve insufficiency. Pulmonic Valve The pulmonic valve is not well visualized. Great Vessels Normal sized aortic root. Medication Diluted definity 1.5ml given slow IV push to enhance endocardial definition. MMode/2D Measurements & Calculations LVIDd: 5.1 cm IVSd: 0.87 cm Ao root diam: 3.0 cm LVIDs: 4.1 cm LVPWd: 0.78 cm LA dimension: 4.1 cm RVDd: 3.6 cm FS: 20.3 % LAV(MOD-bp): 42.0 ml LVAd ap4: 38.8 cm2 SV(MOD-sp4): 61.6 ml LAV(MOD-bp) Indexed: 21.8 ml/m2 LVLd ap4: 8.7 cm LAV(MOD-sp2): 45.2 ml EDV(MOD-sp4): 137.6 ml LAV(MOD-sp4): 35.2 ml EDV(sp4-el): 146.3 ml LVAs ap4: 26.4 cm2 LVLs ap4: 8.0 cm ESV(MOD-sp4): 75.9 ml ESV(sp4-el): 74.2 ml EF(MOD-sp4): 44.8 % EF(sp4-el): 49.3 % SV(sp4-el): 72.1 ml LA A4 area: 13.7 cm2 RA A4 area: 9.3 cm2 TAPSE: 1.6 cm Time Measurements MV dec time: 0.21 sec Doppler Measurements & Calculations MV E max reggie: 70.0 cm/sec Lat Peak E' Reggie: 6.0 cm/sec Med Peak E' Reggie: 3.9 cm/sec MV A max reggie: 103.9 cm/sec E/E' lat: 11.8 E/E' med: 18.0 MV E/A: 0.67 MV V2 max: 138.8 cm/sec MV P1/2t max reggie: 93.9 cm/sec Ao V2 max: 181.5 cm/sec MV max P.7 mmHg MV P1/2t: 86.5 msec Ao max P.2 mmHg MV V2 mean: 78.4 cm/sec MV dec slope: 317.9 cm/sec2 Ao V2 mean: 127.3 cm/sec MV mean P.9 mmHg Ao mean P.4 mmHg MV V2 VTI: 27.2 cm MVA(P1/2t): 2.5 cm2 Ao V2 VTI: 33.8 cm AV (velocity ratio): 0.62 LV V1 max: 114.7 cm/sec MR max reggie: 565.9 cm/sec PA V2 max: 100.1 cm/sec LV V1 max P.3 mmHg MR max P.1 mmHg PA V2 mean: 73.5 cm/sec LV V1 mean P.1 mmHg LV V1 mean: 85.0 cm/sec LV V1 VTI: 21.1 cm TR max reggie: 240.6 cm/sec TR max P.2 mmHg ECHO/Echo Complete W/ Contrast Interpretation Summary Severe inferior, inferior septal and posterior basal hypokinesis. Estimated LVE F 45%. Stage 1 diastolic dysfunction. Mild-Moderate (1-2+) mitral valve insufficiency. Mild tricuspid valve insufficiency. Ordering Physician: Radha Hammonds Performed By: Bhaivn Casas RCS
--- NOTE | 2023-03-09 21:21 | PCM.CONS.C ---
Assessment & Plan Assessment/Plan (1) ST elevation (STEMI) myocardial infarction: QUALIFIERS: Involved coronary artery: unspecified coronary artery Qualified Code(s): I21.3 - ST elevation (STEMI) myocardial infarction of unspecified site PLAN: Given the patient's new finding of left bundle branch block, her clinical presentation and elevated troponin, patient was taken emergently to the cardiac catheterization lab. Coronary angiography revealed total occlusion of the right coronary artery in its proximal part. Successful aspiration thrombectomy followed by placement of a drug-eluting stent was performed with taoism of TEMITOPE-3 flow. Excellent results were noted. Continue aspirin lifelong. Plavix for at least 1 year. Check echocardiogram. (2) Coronary artery disease: PLAN: See #1 above. Aspirin, Plavix, beta-blockers. Continue statins. (3) Hypertension: PLAN: Beta-blockers, angiotensin receptor richie. Start on hydrochlorothiazide. (4) Type 2 diabetes mellitus: PLAN: As per internal medicine. (5) Dyslipidemia: PLAN: Atorvastatin. HPI Consult Data Date of Consult: 03/09/23 HPI Narrative Reason for Consultation: STEMI HPI Narrative: This lady has past medical history significant for diabetes mellitus, dyslipidemia, hypothyroidism and hypertension. She went to her primary care physician's office earlier today with complaints of chest pain. She has had labs drawn. Per patient, her chest pain was relieved after she went back home from her doctor's office. However later she received a call from her physician's office, asking her to go to the emergency room and third troponin drawn at the physicians office or noted to be elevated. Upon arrival in the emergency room, patient has had an ECG done. It showed left bundle branch block. No previous ECG available. A STEMI alert was called. Denies any previous history of heart disease. [facility] Medical History (Updated 03/09/23 @ 21:[address] Radha Hammonds MD) Benign breast cyst in female Breast cancer Breast lump in female Depression Ductal carcinoma of breast History of breast cancer History of right breast cancer Hyperlipidemia Hypertension Hypothyroidism Skin cancer Sleep-disordered breathing Thyroid disease Trimalleolar fracture of right ankle Type 2 diabetes mellitus Home Medications atorvastatin 40 mg tablet 40 mg PO QHS 06/02/16 [History Last Taken Unknown] levothyroxine 100 mcg tablet 112 mcg PO DAILY 06/02/16 [History Last Taken 05/16/17 07:30 112 MCG] niacin 500 mg tablet,extended release 24 hr 1,000 mg PO QHS 06/02/16 [History Last Taken Unknown] pramipexole 0.5 mg tablet 0.5 mg PO BID 06/02/16 [History Last Taken 05/16/17 07:30 0.5 MG] losartan 50 mg tablet 50 mg PO DAILY 08/03/16 [History Last Taken 05/16/17 07:30 50 MG] omeprazole 20 mg capsule,delayed release 40 mg PO DAILY 08/03/16 [History Last Taken 05/16/17 07:30 40 MG] calcium carbonate 600 mg-vitamin D3 10 mcg (400 unit) chewable tablet 1 ea PO BID 05/12/17 [History Last Taken Unknown] rhmjgveehcuq-Oa-xnhy-minerals 1 ea PO DAILY 05/12/17 [History Last Taken Unknown] naproxen sodium 220 mg tablet 440 mg (2 x 220 mg) PO BID #60 tabs 05/17/17 [Rx Last Taken 05/12/17] acetaminophen 500 mg tablet 500 mg PO BID PRN PRN Pain Or Fever 08/14/19 [History Last Taken Unknown] amlodipine 5 mg tablet 5 mg PO DAILY 08/14/19 [History Last Taken Unknown] metformin 500 mg tablet 1,000 mg PO BID 02/09/21 [History Last Taken Unknown] Allergy/AdvReac Type Severity Reaction Status Date / Time Penicillins [PCN] Allergy Severe Hives Verified 03/09/23 19:23 bee venom protein (honey bee) Allergy Anaphylaxis Verified 03/09/23 19:23 Family History Mother Heart disease Breast cancer Lung cancer Hyperlipidemia Arthritis Diabetes Hypertension Kidney disease Surgical History H/O mastectomy History of ankle surgery History of Mohs micrographic surgery for skin cancer History of reconstruction of right breast Hx of colonoscopy Hx of right mastectomy Hx of tonsillectomy Status post open reduction with internal fixation (ORIF) of fracture of ankle Social History Smoking Status: Never smoker second hand exposure: No alcohol intake: never substance use type: does not use caffeine: Yes what type of physical activity do you participate in: none frequency: does not exercise Physical Exam Narrative Comfortable. No apparent distress. Heart sounds 1 and 2. Chest clear to auscultation. No ankle edema. Risk Stratification Risk Stratification Applicable: No Objective Data Vital Signs: Vital Signs Temp Pulse Resp BP Pulse Ox O2 Del Method O2 Flow Rate 97.9 F 110 H 17 141/86 H 99 Nasal Cannula 2 03/09/23 19:21 03/09/23 19:47 03/09/23 19:47 03/09/23 20:01 03/09/23 19:47 03/09/23 19:24 03/09/23 19:24 Oxygen Flow Rate (L/min) 2 Oxygen Delivery Method Nasal Cannula Weight: 182 lb 1 oz Body Mass Index (BMI) 30.2 Lab / Micro Data 03/09/23 19:35 03/09/23 19:35 Labs: Laboratory Results - last 24 hr 03/09/23 19:35: WBC 13.6 H, RBC 4.13 L, Hgb 12.3, Hct 37.2, MCV 90.1, MCH 29.8, MCHC 33.1, RDW Std Deviation 44.0 H, RDW Coeff of Nilda 13.4, Plt Count 362, MPV 9.7, Immature Gran % (Auto) 0.400, Neut % (Auto) 77.1 H, Lymph % (Auto) 14.5 L, [place] % (Auto) 7.4, Eos % (Auto) 0.2, Baso % (Auto) 0.4, Absolute Neuts (auto) 10.5 H, Absolute Lymphs (auto) 1.97, Nucleated RBC % 0, Sodium 139, Potassium 4.3, Chloride 107, Carbon Dioxide 26.0, Anion Gap 6, BUN 22 H, Creatinine 1.38 H, Estim Creat Clear Calc 34.13, Est GFR (MDRD) Af Amer 49 L, Est GFR (MDRD) Non-Af 40 L, BUN/Creatinine Ratio 15.9, Glucose 144 H, Calcium 9.3, Troponin I High Sens 9290 H* Cardiology Labs/Tests 03/09/23 19:35: WBC 13.6 H, RBC 4.13 L, Hgb 12.3, Hct 37.2, MCV 90.1, MCH 29.8, MCHC 33.1, Plt Count 362, MPV 9.7, Immature Gran % (Auto) 0.400, Neut % (Auto) 77.1 H, Lymph % (Auto) 14.5 L, [place] % (Auto) 7.4, Eos % (Auto) 0.2, Baso % (Auto) 0.4, Absolute Neuts (auto) 10.5 H, Nucleated RBC % 0, Sodium 139, Potassium 4.3, Chloride 107, Carbon Dioxide 26.0, Anion Gap 6, BUN 22 H, Creatinine 1.38 H, Est GFR (MDRD) Af Amer 49 L, Est GFR (MDRD) Non-Af 40 L, BUN/Creatinine Ratio 15.9, Glucose 144 H, Calcium 9.3 Rhythm: EKG: ECHO: Stress Test: Cardiac Cath: PCI: CT Surgery: Holter monitor: EPS: PPM: CXR: Chest CT Scan: Radiography Diagnostic Testing: Radiology Impression Chest X-Ray 03/09/23 19:35 IMPRESSION: No acute interval change. Electronically Signed: Zeny Rowell MD at 20:15 EST ,
[2023-03-09 21:24] LABS: ACT Activated Clotting Time 190 sec (74-137)
[2023-03-09 21:24] LABS: ACT Activated Clotting Time 190 sec (74-137)
[2023-03-09 21:38] LABS: Reflex Troponin-HS? (from REC) Y
--- NOTE | 2023-03-09 21:39 | CL.I_ITS ---
Patient Name: TORY TSANG Study Date: 03/09/2023 Performing: Radha Hammonds MD Ht: 65 inches 165.1 cm : 1950 Wt: 182.3 lbs 82.58 kg Age: 72 Gender: female BSA: 1.9 PROCEDURE(S) PERFORMED DC01-(28319)LHC/COR/LV IC17-(47773)CORONARY MECHANICAL THROMBECTOMY (ANGIOJET,PENUMBRA) IC16-(24155/[id number])AMI, JHON OR PTCA, ARTERY/GRAFT, SINGLE VESSEL CLINICAL PROFILE AND CO-MORBIDITIES Indications: ACS <= 24 hrs Heart Failure: None CAD Presentations: STEMI. Symptom onset Date/Time: Time Not Available CONCLUSIONS 100% Prox RCA LVEF 40% [place] 3.5x30 mm, post-dilated using 3.75 mm balloon RECOMMENDATIONS ASA Indefinitley Plavix for at least 12 months DESCRIPTION OF PROCEDURE The patient arrived to the procedure lab. The risks and benefits of the procedure as well as a full description of our services here and lack of surgical backup were fully explained to the patient and/or their significant other prior to the catheterization. The Timeout was completed, verifying the correct patient and procedure. The patient's procedural site was prepped and draped in the usual fashion. Local anesthetic was given subcutaneously to right radial region with Lidocaine 2%. Using a modified Seldinger technique, arterial access was obtained via the right radial artery, a 6Fr sheath was inserted.. Right Coronary Artery selective angiography was then performed in multiple views using a 5 Fr. 4.0 [place] catheter. Left Coronary Artery selective angiography was performed in multiple views using a 5 Fr. JL3.5 catheter. Left Ventriculography was performed in BAL projection using a 5 Fr. Pig[place] catheter. LV to AO pullback pressures were then recordedThe images were reviewed and options discussed. A decision was then made to proceed with an Intervention, IVUS or other adjunct procedure. AL .75 Guide catheter was inserted and engaged into the RCA. Runthrough Guide wire was advanced to the RCA. Angiogram performed post penumbra. 3.5x30 [place] Drug Eluting stent was inserted. Drug Eluting stent was advanced across the lesion in the right coronary, proximal. Angiogram performed post stent deployment. 3.75x15 [place] Emerge Balloon catheter was inserted. Balloon catheter was inserted post stent. Angiogram performed post balloon dilatation. The arterial sheath was pulled and a TR Band was applied for hemostasis, sheath flushed and aspirated. 12cc of air CORONARY ANGIOGRAPHY DOMINANCE: Right Dominant LEFT HEART ASSESSMENT Left Ventricular Ejection Fraction: by LV Gram 40 % LVEDP: 33 mmHg Posterior Hypokinesis - Severe LEFT ANTERIOR DESCENDING ARTERY: LAD: Tubular 20% Proximal lesion in LAD RIGHT CORONARY ARTERY: RCA: Thrombus 100% Proximal lesion in RCA COLLATERAL FLOW: Collateral flow from CX to RT LV-BR Collateral flow from LAD Septal to RT PDA INTERVENTION INFORMATION LESION SITE: RCA (Proximal) Lesion Complexity: High/C, thrombus present: Yes, Lesion Complexity: High/C, lesion length: 28 mm, culprit lesion: Yes Pre Stenosis: 100 % Pre intervention TEMITOPE flow: 0 PROCEDURE: Thrombectomy, Drug Eluting Stent with post dilatation Post Stenosis: 0 % Post intervention TEMITOPE flow: 3 Lesion Devices: Terumo .014 180cm Runthrough Extra Floppy straight Cordis 6 Fr AL.75 100cm Guide Catheter Penumbra Indigo Penumbra CAT Rx 140cm large lumen Penumbra Penumbra engine canister [employer] 3.5 x 30 ANNE MARIE FRONTIER JHON Abdifatah Sci NC EMERGE MR 3.75x15 BALLOON COMPLICATIONS No Complications PROCEDURE MEDICATIONS Oxygen: 2 L/min via nasal cannula Heparin 5000 unit(s) IV 03/09/2023 20:40:03 Heparin 3000 unit(s) IV 03/09/2023 21:13:27 Nitro 200 mcg IC 03/09/2023 20:50:35 Nitro 200 mcg IC 03/09/2023 20:50:35 Verapamil 2.5mg, Ntg 200mcgs, given IA 03/09/2023 20:32:37 SUMMARY OF HEMODYNAMIC DATA Time AIR REST ECG 20:23:03 AO 151/85 (104) SA 20:34:57 LV 178/16, 35 21:01:24 LV 168/13, 33 21:01:32 LV 172/29, 36 21:02:43 LVp 172/28, 36 21:02:48 AOp 173/92 (128) 21:02:55 Signed By Radha Hammonds MD On 03/09/2023 21:38:57 Radha Hammonds MD
[2023-03-09] MEDS: Furosemide 20 MG/2 ML VIAL IV (22:10)
[2023-03-09] MEDS: Carvedilol 3.125 MG TABLET PO (22:10)
[2023-03-09] MEDS: 0.9% Normal Saline (500mL Bag) 500 ML 100 ML IV (22:10)
[2023-03-09] MEDS: Atorvastatin Calcium 40 MG Tablet PO (22:10)
[2023-03-09 22:55] LABS: Troponin-I HS 39674 pg/mL (3.0-54.0)
[2023-03-10] VITALS (13 sets, daily range): BP systolic 126–152; BP diastolic 67–88; PULSE 76–91; RESP 15–26; TEMP 36.3–37; O2SAT 95–100; BMI 30.4
[2023-03-10] MEDS: Clopidogrel Bisulfate 300 MG Tablet PO (02:58)
[2023-03-10] MEDS: 0.9% Saline Lock 10 ML Syringe IV ×2 (03:06→21:26)
[2023-03-10 03:20] LABS: Hematocrit 33.2 % (37-47); Mean Corp Hgb Conc 33.1 g/dL (32-36); Mean Corpuscular Hgb 29.9 pg (27.0-32.0); Mean Corpuscular Volume 90.2 fL (81-99); Mean Platelet Vol. 9.9 fl (6.2-12.0); Platelet Count 302 K/mm3 (150-450); RBC Distribution Width CV 13.4 % (11.6-14.6); RBC Distribution Width SD 44.7 fl (35.1-43.9); Red Blood Count 3.68 M/mm3 (4.2-5.4); White Blood Count 13.8 K/mm3 (4.4-11.0)
[2023-03-10 03:36] LABS: ALB/GLOB Ratio 1.1 RATIO (0.9-2.4); AST(SGOT) 217 U/L (15-37); Alanine Aminotransfer ALT/SGPT 57 U/L (13-56); Albumin, Serum 3.7 g/dL (3.2-5.0); Alkaline Phosphatase 114 U/L (45-117); Anion Gap 10 (5-15); BUN 20 mg/dL (7-18); BUN/Creat Ratio 16.8 RATIO (10-20); Calcium,Total 8.7 mg/dL (8.5-10.1); Chloride 104 mmol/L (98-107); Creatinine, Serum 1.19 mg/dL (0.55-1.02); EST Glomerular Filtration Rate 48 mL/min (>60); Est Glom Filt Rate - Afr Amer 58 mL/min (>60); Estimated Creatinine Clearance 39.58 ml/min; Globulin 3.5 g/dL (2.2-4.2); Glucose 153 mg/dL (74-106); Potassium 3.6 mmol/L (3.5-5.1); Protein, Total 7.2 g/dL (6.4-8.2); Sodium Level 139 mmol/L (136-145)
--- NOTE | 2023-03-10 07:29 | PN.HOSP_ITS ---
Reason for Visit Reason for Visit: Chest pain Subjective Subjective Patient is a 72-year-old white female who presented to the emergency department on 03/09/2023 with chest pain. She reported her symptoms began abruptly at about 7:30 AM and the pain was continuous, burning, and substernal. Her symptoms had been waxing and waning with a heartburn/chest pressure sensation that nothing seemed to improve or worsen. She was seen by Dr. Gooden earlier in the day and was concern for possible atrial flutter and DC so she was sent to the emergency department. In the emergency department she was noted to have an elevated initial troponin at 938 and an EKG that revealed acute ST segment elevation consistent with an NSTEMI. STEMI team was called and she was taken emergently to the [facility] by Dr. Hammonds and she was noted to have 100% occlusion of the RCA. JHON via PCI to the RCA was performed and she was then transferred to the ICU for ongoing care after stent placement. She is feeling very well today. No complaints. Anxious to go home. I did tell her that would likely monitor for another 24 hours and if she is stable we will be able to discharge her tomorrow. We did discuss the importance of ongoing dual antiplatelet therapy for 12-month period of time and explained to her why she voiced understanding. Objective Data Objective Data Vital Signs: Vital Signs Temp Pulse Resp BP Pulse Ox O2 Del Method O2 Flow Rate 98.4 F 84 20 H 148/83 H 98 Room Air 2 03/10/23 03:00 03/10/23 07:00 03/10/23 07:00 03/10/23 07:00 03/10/23 07:00 03/10/23 07:00 03/09/23 19:24 Oxygen Flow Rate (L/min) 2 Oxygen Delivery Method Room Air Weight: 83.1 kg Body Mass Index (BMI) 30.4 Intake & Output: Intake and Output for Last 24 Hours 03/08/23 03/09/23 03/10/23 23:59 23:59 23:59 Intake Total 500 / 500 Output Total 0 / 0 Balance 0 / 0 500 / 500 Lab / Micro Data 03/10/23 03:09 03/10/23 03:09 Labs: Laboratory Results - last 24 hr 03/09/23 19:35: WBC 13.6 H, RBC 4.13 L, Hgb 12.3, Hct 37.2, MCV 90.1, MCH 29.8, MCHC 33.1, RDW Std Deviation 44.0 H, RDW Coeff of Nilda 13.4, Plt Count 362, MPV 9.7, Immature Gran % (Auto) 0.400, Neut % (Auto) 77.1 H, Lymph % (Auto) 14.5 L, [place] % (Auto) 7.4, Eos % (Auto) 0.2, Baso % (Auto) 0.4, Absolute Neuts (auto) 10.5 H, Absolute Lymphs (auto) 1.97, Nucleated RBC % 0, Sodium 139, Potassium 4.3, Chloride 107, Carbon Dioxide 26.0, Anion Gap 6, BUN 22 H, Creatinine 1.38 H , Estim Creat Clear Calc 34.13, Est GFR (MDRD) Af Amer 49 L, Est GFR (MDRD) Non- Af 40 L, BUN/Creatinine Ratio 15.9, Glucose 144 H, Calcium 9.3, Troponin I High Sens 9290 H* 03/09/23 20:34: Activated Clotting Time 190 H 03/09/23 21:05: Activated Clotting Time 190 H 03/09/23 21:47: Troponin I High Sens 99296 H* 03/10/23 03:09: WBC 13.8 H, RBC 3.68 L, Hgb 11.0 L, Hct 33.2 L, MCV 90.2, MCH 29.9, MCHC 33.1, RDW Std Deviation 44.7 H, RDW Coeff of Nilda 13.4, Plt Count 302, MPV 9.9, Sodium 139, Potassium 3.6, Chloride 104, Carbon Dioxide 25.0, Anion Gap 10, BUN 20 H, Creatinine 1.19 H, Estim Creat Clear Calc 39.58, Est GFR (MDRD) Af Amer 58 L, Est GFR (MDRD) Non-Af 48 L, BUN/Creatinine Ratio 16.8, Glucose 153 H, Calcium 8.7, Total Bilirubin 0.50, AST 217 H, ALT 57 H, Alkaline Phosphatase 114, Total Protein 7.2, Albumin 3.7, Globulin 3.5, Albumin/Globulin Ratio 1.1 Radiography Diagnostic Testing: Radiology Impression Chest X-Ray 03/09/23 19:35 IMPRESSION: No acute interval change. Electronically Signed: Zeny Rowell MD at 20:15 EST , Physical Exam Const alert, oriented x3, no apparent distress and well nourished Constitutional Narrative: Obese, older, white female, sitting up in bed watching television eating breakfast, appears comfortable and nontoxic HEENT head/scalp atraumatic and moist oral mucous membranes HEENT Narrative: Mallampati 3, no thrush Head and Scalp: normocephalic Resp normal respiratory effort, no retractions, no use of accessory muscles and clear to auscultation bilaterally Auscultation: Negative for rales, rhonchi or wheezes Cardio regular rate, regular rhythm, S1 normal heart sound, S2 normal heart sound, no murmurs, no rub, no gallops and no clicks GI normal to inspection, nondistended, normoactive bowel sounds, soft to palpation and non-tender Extremity no clubbing, cyanosis or edema Extremity Narrative: Pedal pulses are 2+ Neuro oriented x3, moves all extremities and no focal motor deficits Speech: speech normal Psych affect normal Psych Narrative: Eye contact is good, patient interacts appropriately Assessment & Plan Assessment/Plan (1) ST elevation (STEMI) myocardial infarction: QUALIFIERS: Involved coronary artery: unspecified coronary artery Qualified Code(s): I21.3 - ST elevation (STEMI) myocardial infarction of unspecified site (2) Dyslipidemia: (3) Coronary artery disease: (4) Leukocytosis: (5) Anemia: PLAN: Plan STEMI -Status post JHON to RCA on 03/09/2023 -Continue aspirin 81 mg daily -Continue atorvastatin 40 mg nightly -Continue Plavix 75 mg daily -Continue carvedilol but increase to 12.5 mg p.o. twice daily -Continue losartan 50 mg daily -Echocardiogram is pending -Check a.m. lipids -Hemoglobin A1c is pending -Continue to monitor on telemetry for any reperfusion arrhythmias -Cardiology is following-appreciate input Leukocytosis -Suspect reactive -Will monitor Mild anemia -No anemia present on presentation -May be dilutional with fluids given -Will continue to monitor Hypertension -Will hold home amlodipine for now and restart if blood pressure is elevated -Continue carvedilol 3.125 mg twice daily -Continue losartan 50 mg daily -Continue to monitor and adjust antihypertensives as needed Hyperlipidemia -Lipid panel is pending -patient is on atorvastatin 40 mg at at bedtime at baseline -If LDL is greater than 70 will increase atorvastatin to 80 mg nightly DM-2 -Check hemoglobin A1c -Hold home metformin -If echo shows any signs of reduced EF we will start Jardiance -SSI -Cardiac/carb controlled diet -Accu-Cheks as ordered Hypothyroidism -Continue home levothyroxine Restless leg syndrome -It appears the patient may have been on Mirapex previously -this medication has not been confirmed -If confirmed that she is taking we will reinitiate GERD -Continue PPI CKD stage IIIb -Baseline creatinine seems to fluctuate but appears to run between 0.9 and 1.2 most recently -Currently 1.19 -Will watch closely with contrast given for cath -Avoid nephrotoxins as able Osteoarthritis -Recommend avoidance of NSAIDs -As needed Tylenol -Patient was on naproxen as an outpatient History of ductal carcinoma of the right breast -Status postmastectomy in 2004 -Ongoing outpatient surveillance History of skin cancer -Status post Mohs microsurgery Depression -Patient does not appear to be on any home medications for this -Would avoid benzodiazepines and will discontinue Xanax Obesity -BMI is 30.5 -Recommend weight loss -Complicates treatment, prognosis, outcomes DVT prophylaxis -Subcu Lovenox CODE STATUS -No CODE STATUS currently listed -Will have to discuss with patient Charges/Coding Visit Charges Inpatient E&M: 13117 Subs Hosp L2
[2023-03-10] MEDS: Pantoprazole Sodium 40 MG Tablet PO (08:20)
[2023-03-10] MEDS: Carvedilol 3.125 MG TABLET PO (08:20)
[2023-03-10] MEDS: Aspirin E.C. 81 MG Tablet PO (08:20)
[2023-03-10] MEDS: Levothyroxine 112 MCG Tablet PO (08:20)
[2023-03-10] MEDS: Clopidogrel Bisulfate 75 MG Tablet PO (08:21)
--- NOTE | 2023-03-10 08:29 | PN.CARD_ITS ---
Subjective Subjective Denies any complaints. No chest pain. No shortness of breath. Objective Data Vital Signs: Vital Signs Temp Pulse Resp BP Pulse Ox O2 Del Method O2 Flow Rate 98.4 F 87 20 H 148/83 H 97 Room Air 2 03/10/23 07:00 03/10/23 07:00 03/10/23 07:00 03/10/23 07:00 03/10/23 07:00 03/10/23 07:00 03/09/23 19:24 Oxygen Flow Rate (L/min) 2 Oxygen Delivery Method Room Air Weight: 183 lb 3.266 oz Body Mass Index (BMI) 30.4 Intake & Output: Intake and Output for Last 24 Hours 03/08/23 03/09/23 03/10/23 23:59 23:59 23:59 Intake Total 500 / 500 Output Total 0 / 0 Balance 0 / 0 500 / 500 Lab / Micro Data 03/10/23 03:09 03/10/23 03:09 Labs: Laboratory Results - last 24 hr 03/09/23 19:35: WBC 13.6 H, RBC 4.13 L, Hgb 12.3, Hct 37.2, MCV 90.1, MCH 29.8, MCHC 33.1, RDW Std Deviation 44.0 H, RDW Coeff of Nilda 13.4, Plt Count 362, MPV 9.7, Immature Gran % (Auto) 0.400, Neut % (Auto) 77.1 H, Lymph % (Auto) 14.5 L, [place] % (Auto) 7.4, Eos % (Auto) 0.2, Baso % (Auto) 0.4, Absolute Neuts (auto) 10.5 H, Absolute Lymphs (auto) 1.97, Nucleated RBC % 0, Sodium 139, Potassium 4.3, Chloride 107, Carbon Dioxide 26.0, Anion Gap 6, BUN 22 H, Creatinine 1.38 H , Estim Creat Clear Calc 34.13, Est GFR (MDRD) Af Amer 49 L, Est GFR (MDRD) Non- Af 40 L, BUN/Creatinine Ratio 15.9, Glucose 144 H, Calcium 9.3, Troponin I High Sens 9290 H* 03/09/23 20:34: Activated Clotting Time 190 H 03/09/23 21:05: Activated Clotting Time 190 H 03/09/23 21:47: Troponin I High Sens [id number] H* 03/10/23 03:09: WBC 13.8 H, RBC 3.68 L, Hgb 11.0 L, Hct 33.2 L, MCV 90.2, MCH 29.9, MCHC 33.1, RDW Std Deviation 44.7 H, RDW Coeff of Nilda 13.4, Plt Count 302, MPV 9.9, Sodium 139, Potassium 3.6, Chloride 104, Carbon Dioxide 25.0, Anion Gap 10, BUN 20 H, Creatinine 1.19 H, Estim Creat Clear Calc 39.58, Est GFR (MDRD) Af Amer 58 L, Est GFR (MDRD) Non-Af 48 L, BUN/Creatinine Ratio 16.8, Glucose 153 H, Calcium 8.7, Total Bilirubin 0.50, AST 217 H, ALT 57 H, Alkaline Phosphatase 114, Total Protein 7.2, Albumin 3.7, Globulin 3.5, Albumin/Globulin Ratio 1.1 Cardiology Labs/Tests 03/09/23 19:35: WBC 13.6 H, RBC 4.13 L, Hgb 12.3, Hct 37.2, MCV 90.1, MCH 29.8, MCHC 33.1, Plt Count 362, MPV 9.7, Immature Gran % (Auto) 0.400, Neut % (Auto) 77.1 H, Lymph % (Auto) 14.5 L, [place] % (Auto) 7.4, Eos % (Auto) 0.2, Baso % (Auto) 0.4, Absolute Neuts (auto) 10.5 H, Nucleated RBC % 0, Sodium 139, Potassium 4.3, Chloride 107, Carbon Dioxide 26.0, Anion Gap 6, BUN 22 H, Creatinine 1.38 H, Est GFR (MDRD) Af Amer 49 L, Est GFR (MDRD) Non-Af 40 L, BUN/Creatinine Ratio 15.9, Glucose 144 H, Calcium 9.3 03/10/23 03:09: WBC 13.8 H, RBC 3.68 L, Hgb 11.0 L, Hct 33.2 L, MCV 90.2, MCH 29.9, MCHC 33.1, Plt Count 302, MPV 9.9, Sodium 139, Potassium 3.6, Chloride 104, Carbon Dioxide 25.0, Anion Gap 10, BUN 20 H, Creatinine 1.19 H, Est GFR (MDRD) Af Amer 58 L, Est GFR (MDRD) Non-Af 48 L, BUN/Creatinine Ratio 16.8, Glucose 153 H, Calcium 8.7, Total Bilirubin 0.50 Rhythm: EKG: ECHO: Stress Test: Cardiac Cath: PCI: CT Surgery: Holter monitor: EPS: PPM: CXR: Chest CT Scan: Radiography Diagnostic Testing: Radiology Impression Chest X-Ray 03/09/23 19:35 IMPRESSION: No acute interval change. Electronically Signed: Zeny Rowell MD at 20:15 EST , Physical Exam Narrative Comfortable. Heart sounds 1 and 2 normal. Chest clear to auscultation bilaterally. Alert oriented x 3. No ankle edema. Assessment & Plan Assessment/Plan (1) ST elevation (STEMI) myocardial infarction: QUALIFIERS: Involved coronary artery: unspecified coronary artery Qualified Code(s): I21.3 - ST elevation (STEMI) myocardial infarction of unspecified site PLAN: Status post percutaneous intervention with drug-eluting stent to the right coronary artery. Stable. Continue aspirin. Continue Plavix. (2) Coronary artery disease: PLAN: See #1 above. Aspirin, Plavix, beta-blockers. Continue statins. (3) Hypertension: PLAN: Beta-blockers, angiotensin receptor richie. Start on hydrochlorothiazide. Increase carvedilol to 6.25 mg twice daily. (4) Type 2 diabetes mellitus: PLAN: As per internal medicine. (5) Dyslipidemia: PLAN: Atorvastatin.
[2023-03-10 09:41] LABS: Hemoglobin A1c 6.7 % (3.8-5.6)
[2023-03-10] MEDS: Carvedilol 3.125 MG TABLET 9.375 MG PO (09:46)
[2023-03-10] MEDS: Losartan Potassium 50 MG Tablet PO (09:47)
[2023-03-10] MEDS: hydroCHLOROthiazide 25 MG Tablet PO (09:47)
[2023-03-10] MEDS: Enoxaparin 40 MG/0.4 ML Syringe SC (09:47)
--- NOTE | 2023-03-10 10:00 | CRPHASE1 ---
Patient Communication Patient Information PHII Cardiac Rehab Discussed with Patient:: Yes Guide to Cardiac Rehab Given to Patient:: Yes Cardiac Rehab Facility Choice List Given to Patient:: Yes Communication to Cardiac Rehab Choice Program [facility] CR PHII:: Communication Given to CR Bankruptcy Paralegal:: Radha Hammonds Refer Phase II Cardiac Rehab:: Yes Cardiac Rehabilitation Info Program Information Cardiac Rehabilitation Program Information: Cardiac Rehab The cardiac rehab team at [facility] consists of highly skilled exercise physiologists, nurses, respiratory therapists and physicians working together with you. Our purpose is to help you have a full recovery and achieve the goals you set for yourself. Over the years many of our patients have returned to activities they assumed they would never do again! We can help restore your confidence and motivation to make lifestyle changes that can have a significant impact on your health and quality of life! We can help answer questions and concerns you may have about exercise, lifestyle, medications, diet, stress and anxiety which are common following a hospitalization. WE monitor ECG and vital signs during exercise and discuss your progress with you and report to your physician(s). Cardiac Rehab is proven to help reduce readmissions, improve functional capacity and lower recurrence of problems with your heart. Our Cardiac Rehab program is Certified by the [place] [employer]io-Vascular and Pulmonary [employer] (AACVPR) and Accredited by the [place] [employer] through our [facility]. You can contact us at . We invite you to call us with your questions or to get started in our program. If you have other questions or concerns be sure to ask your physician/provider during your follow-up visit. WE look forward to seeing you!
--- NOTE | 2023-03-10 10:01 | CRPH1.INSTRU ---
General Education Discussed with Patient CAD and cardiac anatomy and function:: Patient communicates acknowledgment and Needs reinforcement Explanation of diagnoses and procedures:: Patient communicates acknowledgment and Needs reinforcement Sign/Symptoms of IA:: Patient communicates acknowledgment and Needs reinforcement Antiplatelet therapy: Patient communicates acknowledgment and Needs reinforcement Proper use of NTG-SL: Patient communicates acknowledgment and Needs reinforcement Emergency procedures and activation of EMS: Patient communicates acknowledgment and Needs reinforcement Compliance of all prescribed medications: Patient communicates acknowledgment and Needs reinforcement Smoking Risk Factors Patient Nicotine/Smoking Risk Factors Are:: Never smoked Dyslipidemia Risk Factors Patient Dyslipidemia Risk Factors Are:: Total Cholesterol, Triglycerides, HDL and LDL Recommendations Recommendations Include:: Lipid profile not available and Therapeutic Lifestyle Change dietary guidelines Response Code Dyslipidemia Response Code:: Patient communicates acknowledgment and Needs reinforcement Overweight/Obesity Risk Factors Patient Overweight/Obesity Risk Factors Are:: Obesity - > or = 30 Recommendations Recommendations Include:: Weight loss of 5-10%, Reduced calorie diet and Exercise 5-7 times/week Response Code Overweight/Obesity:: Patient communicates acknowledgment and Needs reinforcement Hypertension Risk Factors Patient Hypertension Risk Factors Are:: No documented hx of HTN Recommendations Recommendations Include:: BP <130/80 if diabetic and Decrease/maintain normal body weight Response Code Hypertension:: Patient communicates acknowledgment and Needs reinforcement Diabetes Risk Factors Patient Diabetes Risk Factors Are:: Elevated blood sugars Recommendations Recommendations Include:: Maintain fasting blood sugars 70-110 md/dL, Maintain HgbA1c of 6% or less, Monitor blood sugar as prescribed, Diabetic dietary guidelines and Decrease/maintain body weight Response Code Diabetes:: Patient communicates acknowledgment and Needs reinforcement Sedentary Risk Factors Patient Sedentary Risk Factors Are:: Lack of regular exercise Recommendations Recommendations Include:: Aerobic exercise 5-7 times/week for 20-30 minutes continuously, Benefits of regular exercise, Discussed home walking program and Monitored Outpatient Cardiac Rehab Response Code Sedentary Response Code:: Patient communicates acknowledgment and Needs reinforcement Stress Risk Factors Patient Stress Risk Factors Are:: Patient denies stress as a risk factor
--- NOTE | 2023-03-10 10:20 | NURSING ---
report called and given to josefina deleon [facility]. in and both aware that will be transferred this am
--- NOTE | 2023-03-10 11:10 | CASEMGMT ---
RN CM Face to Face with patient for initial transition planning/care coordination assessment. RN CM introduced self and role at [facility]. Patient lying in bed, alert and oriented, at beside . Patient willing to participate in assessment and is able to answer all questions appropriately. Care providers, pharmacy, and demographics verified. Patient wishes to discharge home, denies need for home health at this time. Patient states she has no further needs or concerns at this time. CM to follow for discharge planning needs that may arise. PCP: [facility] Specialists: Galdino, oncologist; Harpal, assistant boiler operator; Preferred Pharmacy: [facility] Retail Insurance: [id number] Prescription Benefit: yes Living Will/HPOA: none LNOK: Living Arrangements: Patient lives with in a mobile home with 8 steps and railing to enter the home. Patient states she is independent at home. Transportation: self, DME/HHC: Patient has shower chair, raised toilet, cane, walker, and grab bars. No previous HHC or SNF Disposition Plan: Patient to discharge home with family support and follow-up plans in place. [place] EDGE, RN, CM
[2023-03-10] MEDS: Acetaminophen 325 MG Tablet 650 MG PO (16:43)
[2023-03-10] MEDS: Atorvastatin Calcium 40 MG Tablet PO (21:17)
[2023-03-10] MEDS: Carvedilol 12.5 MG Tablet PO (21:17)
[2023-03-10] MEDS: Pramipexole Di-HCl 0.5 MG Tablet PO (21:17)
[2023-03-11 03:01] VITALS: BMI 29.7
[2023-03-11 03:30] VITALS: BP 148/81; PULSE 83; RESP 16; TEMP 36.7; O2SAT 96
[2023-03-11] MEDS: Levothyroxine 112 MCG Tablet PO (05:45)
[2023-03-11 06:14] LABS: Absolute Lymphocyte Count 2.03 X10^3/uL (0.83-4.51); Absolute Neutrophil Count 5.8 X10^3/uL (2.0-7.7); Basophil# 0.06 X10^3/uL; Basophil% 0.7 % (0-1); Eosinophil# 0.21 X10^3/uL; Eosinophils% 2.3 % (0-5); Hematocrit 33.1 % (37-47); Hemoglobin 10.6 g/dL (12.0-15.0); Lymphocyte # 2.03 X10^3/ul (0.83-4.51); Lymphocyte % 22.5 % (19-41); Mean Corpuscular Hgb 29.2 pg (27.0-32.0); Mean Corpuscular Volume 91.2 fL (81-99); Mean Platelet Vol. 9.9 fl (6.2-12.0); Monocyte# 0.91 X10^3/uL; Monocyte% 10.1 % (0-10); NRBC Flagged by Analyzer 0 % (0-5); Neutrophil # 5.77 X10^3/uL (2.7-7.7); Neutrophil % 64.1 % (47-70); Platelet Count 271 K/mm3 (150-450); RBC Distribution Width CV 13.4 % (11.6-14.6); RBC Distribution Width SD 44.9 fl (35.1-43.9); Red Blood Count 3.63 M/mm3 (4.2-5.4)
[2023-03-11 06:44] LABS: Anion Gap 9 (5-15); BUN 23 mg/dL (7-18); BUN/Creat Ratio 21.9 RATIO (10-20); Calcium,Total 8.6 mg/dL (8.5-10.1); Chloride 106 mmol/L (98-107); Cholesterol 170 mg/dL (200); Creatinine, Serum 1.05 mg/dL (0.55-1.02); EST Glomerular Filtration Rate 55 mL/min (>60); Est Glom Filt Rate - Afr Amer 67 mL/min (>60); Estimated Creatinine Clearance 44.86 ml/min; Glucose 149 mg/dL (74-106); High Density Lipoprotein 54 mg/dL; Magnesium 1.8 mg/dL (1.6-2.6); Phosphorus 4.9 mg/dL (2.5-4.9); Potassium 3.6 mmol/L (3.5-5.1); Sodium Level 139 mmol/L (136-145); Triglycerides 170 mg/dL; Very Low Density Lipoprotein 34 mg/dL (5-40)
[2023-03-11 08:03] VITALS: O2SAT 94
[2023-03-11 09:20] VITALS: BP 145/86; PULSE 77; RESP 18; TEMP 36.9; O2SAT 98
[2023-03-11] MEDS: hydroCHLOROthiazide 25 MG Tablet PO (09:28)
[2023-03-11] MEDS: Clopidogrel Bisulfate 75 MG Tablet PO (09:29)
[2023-03-11] MEDS: Pantoprazole Sodium 40 MG Tablet PO (09:29)
[2023-03-11] MEDS: Enoxaparin 40 MG/0.4 ML Syringe SC (09:29)
[2023-03-11] MEDS: Aspirin E.C. 81 MG Tablet PO (09:29)
[2023-03-11] MEDS: Carvedilol 12.5 MG Tablet PO (09:29)
[2023-03-11] MEDS: Pramipexole Di-HCl 0.5 MG Tablet PO (09:30)
[2023-03-11] MEDS: Losartan Potassium 50 MG Tablet PO (09:41)
--- NOTE | 2023-03-11 10:00 | EKG12_ITS ---
Test Reason : POST STEMI Blood Pressure : / mmHG Vent. Rate : 090 BPM Atrial Rate : 090 BPM P-R Int : 162 ms QRS Dur : 130 ms QT Int : 410 ms P-R-T Axes : 035 -34 136 degrees QTc Int : 501 ms Normal sinus rhythm Left axis deviation Left bundle branch block Abnormal ECG When compared with ECG of 09-MAR-2023 19:27, MANUAL COMPARISON REQUIRED, DATA IS UNCONFIRMED Confirmed by LEANA RM, REY ([id number]), editor school photograph OLIVIA PEREIRA ([id number]) on 03/15/2023 10:21:10 AM Referred By: [facility] Confirmed By:REY DUEÑAS MD
--- NOTE | 2023-03-11 11:33 | PN.CARD_ITS ---
Subjective Subjective Denies any complaints. No chest pain. No shortness of breath. Objective Data Vital Signs: Vital Signs Temp Pulse Resp BP Pulse Ox O2 Del Method O2 Flow Rate 98.4 F 77 18 145/86 H 98 Room Air 2 03/11/23 09:20 03/11/23 09:20 03/11/23 09:20 03/11/23 09:20 03/11/23 09:20 03/11/23 09:20 03/09/23 19:24 Oxygen Flow Rate (L/min) 2 Oxygen Delivery Method Room Air Weight: 179 lb 0.246 oz Body Mass Index (BMI) 29.7 Intake & Output: Intake and Output for Last 24 Hours 03/09/23 03/10/23 03/11/23 23:59 23:59 23:59 Intake Total 1100 / 1340 490 / 490 Output Total 0 / 0 Balance 0 / 0 1100 / 1340 490 / 490 Lab / Micro Data 03/11/23 05:55 03/11/23 05:55 Labs: Laboratory Results - last 24 hr 03/11/23 05:55: WBC 9.0, RBC 3.63 L, Hgb 10.6 L, Hct 33.1 L, MCV 91.2, MCH 29.2, MCHC 32.0, RDW Std Deviation 44.9 H, RDW Coeff of Nilda 13.4, Plt Count 271, MPV 9.9, Immature Gran % (Auto) 0.300, Neut % (Auto) 64.1, Lymph % (Auto) 22.5, [place] % (Auto) 10.1 H, Eos % (Auto) 2.3, Baso % (Auto) 0.7, Absolute Neuts (auto) 5.8, Absolute Lymphs (auto) 2.03, Nucleated RBC % 0, Sodium 139, Potassium 3.6, Chloride 106, Carbon Dioxide 24.0, Anion Gap 9, BUN 23 H, Creatinine 1.05 H, Estim Creat Clear Calc 44.86, Est GFR (MDRD) Af Amer 67, Est GFR (MDRD) Non-Af 55 L, BUN/Creatinine Ratio 21.9 H, Glucose 149 H, Calcium 8.6, Phosphorus 4.9, Magnesium 1.8, Triglycerides 170, Cholesterol 170, LDL Cholesterol 82, VLDL Cholesterol 34, HDL Cholesterol 54 Cardiology Labs/Tests 03/11/23 05:55: WBC 9.0, RBC 3.63 L, Hgb 10.6 L, Hct 33.1 L, MCV 91.2, MCH 29.2, MCHC 32.0, Plt Count 271, MPV 9.9, Immature Gran % (Auto) 0.300, Neut % (Auto) 64.1, Lymph % (Auto) 22.5, [place] % (Auto) 10.1 H, Eos % (Auto) 2.3, Baso % (Auto) 0.7, Absolute Neuts (auto) 5.8, Nucleated RBC % 0, Sodium 139, Potassium 3.6, Chloride 106, Carbon Dioxide 24.0, Anion Gap 9, BUN 23 H, Creatinine 1.05 H, Est GFR (MDRD) Af Amer 67, Est GFR (MDRD) Non-Af 55 L, BUN/Creatinine Ratio 21.9 H, Glucose 149 H, Calcium 8.6, Phosphorus 4.9, Magnesium 1.8, Triglycerides 170, Cholesterol 170, LDL Cholesterol 82, VLDL Cholesterol 34, HDL Cholesterol 54 Rhythm: EKG: ECHO: Stress Test: Cardiac Cath: PCI: CT Surgery: Holter monitor: EPS: PPM: CXR: Chest CT Scan: Radiography Diagnostic Testing: Radiology Impression Echocardiogram 03/09/23 21:16 Interpretation Summary Severe inferior, inferior septal and posterior basal hypokinesis. Estimated LVEF 45%. Stage 1 diastolic dysfunction. Mild-Moderate (1-2+) mitral valve insufficiency. Mild tricuspid valve insufficiency. Ordering Physician: Radha Hammonds Performed By: Bhavin Casas RCS Physical Exam Narrative Comfortable. Heart sounds 1 and 2 normal. Chest clear to auscultation bilaterally. Alert oriented x 3. No ankle edema. Assessment & Plan Assessment/Plan (1) ST elevation (STEMI) myocardial infarction: QUALIFIERS: Involved coronary artery: unspecified coronary artery Qualified Code(s): I21.3 - ST elevation (STEMI) myocardial infarction of unspecified site PLAN: Status post percutaneous intervention with drug-eluting stent to the right coronary artery. Stable. Continue aspirin. Continue Plavix. (2) Coronary artery disease: PLAN: See #1 above. Aspirin, Plavix, beta-blockers. Continue statins. (3) Hypertension: PLAN: Beta-blockers, angiotensin receptor richie. Start on hydrochlorot hiazide. Increase losartan to 100 mg daily. (4) Type 2 diabetes mellitus: PLAN: As per internal medicine. (5) Dyslipidemia: PLAN: Atorvastatin. PLAN: Plan May discharge home from a cardiology standpoint. Follow-up as outpatient in 2 to 4 weeks.
--- NOTE | 2023-03-11 12:23 | PCM.DC.SUM ---
Providers Date of Admission: 03/09/23 Date of Discharge: 03/11/23 Primary Care Physician: Dr. Akbar Farias MD Reason For Visit: STEMI Diagnosis Discharge Diagnosis (1) ST elevation (STEMI) myocardial infarction: Status: Acute Code(s): I21.3 - ST elevation (STEMI) myocardial infarction of unspecified site Qualifiers: Involved coronary artery: unspecified coronary artery Qualified Code(s): I21.3 - ST elevation (STEMI) myocardial infarction of unspecified site (2) Coronary artery disease: Status: Acute Code(s): I25.10 - Atherosclerotic heart disease of [place] coronary artery without angina pectoris (3) Hypertension: Status: Chronic Code(s): I10 - Essential (primary) hypertension (4) Type 2 diabetes mellitus: Status: Chronic Code(s): E11.9 - Type 2 diabetes mellitus without complications (5) Dyslipidemia: Status: Acute Code(s): E78.5 - Hyperlipidemia, unspecified Medications at Discharge Home Medications pramipexole 0.5 mg tablet 0.5 mg PO BID restless legs 06/02/16 losartan 50 mg tablet 100 mg PO DAILY blood pressure 08/03/16 omeprazole 20 mg capsule,delayed release 40 mg PO DAILY 08/03/16 mfgbblzpbxmm-Qk-nxey-minerals 1 ea PO DAILY vitamin 05/12/17 acetaminophen 500 mg tablet 500 mg PO BID PRN PRN Pain Or Fever 08/14/19 amlodipine 5 mg tablet 5 mg PO DAILY 08/14/19 metformin 500 mg tablet 1,000 mg PO BID 02/09/21 apixaban 5 mg (74 tabs) tablets in a dose pack ([place] DVT-PE Treat 30D Start) 10 mg PO Q12H blood thinner 03/10/23 calcium carbonate 500 mg calcium (1,250 mg) chewable tablet (Calcium 500) 500 mg PO DAILY calcium 03/10/23 citalopram 20 mg tablet 20 mg PO QHS depression 03/10/23 levothyroxine 125 mcg tablet 125 mcg PO MOTUWETHFRSA thyroid 03/10/23 aspirin 81 mg tablet,delayed release 81 mg PO DAILY@0800 #0 tabs 03/11/23 atorvastatin 80 mg tablet 80 mg PO QHS #30 tabs 03/11/23 carvedilol 12.5 mg tablet 12.5 mg PO BID #60 tabs 03/11/23 clopidogrel 75 mg tablet 75 mg PO DAILY #30 tabs 03/11/23 hydrochlorothiazide 25 mg tablet 25 mg PO DAILY #30 tabs 03/11/23 Hospital Course Operations None Procedures 2-D Echocardiogram, Cardiac catheterization, EKG and - (Chest x-ray) Summary of Care Provided Minutes Spent on Discharge: 40 Hospital Course: Mrs. Mccain is a 72-year-old white female who presented to the emergency department on 03/09/2023 with chest pain. She reported her symptoms began abruptly at about 7:30 AM and the pain was continuous, burning, and substernal. Her symptoms had been waxing and waning with a heartburn/chest pressure sensation that nothing seemed to improve or worsen. She was seen by Dr. Gooden earlier in the day and was concern for possible atrial flutter and CA so she was sent to the emergency department. In the emergency department she was noted to have an elevated initial troponin at 938 and an EKG that revealed acute ST segment elevation consistent with an NSTEMI. STEMI team was called and she was taken emergently to the [facility] by Dr. Hammonds and she was noted to have 100% occlusion of the RCA. JHON via PCI to the RCA was performed and she was then transferred to the ICU for ongoing care after stent placement. She was monitored in the ICU overnight with no significant abnormalities or issues and then transferred to the telemetry floor. She remained stable while she was there with no recurrent chest pain or significant arrhythmias. We checked a hemoglobin A1c and this was found to be 6.7 and recommend she continue her home regimen for diabetes management. Her lipid panel demonstrated a total cholesterol of 170/LDL of 82/HDL 54 and a triglyceride level of 170. Since her LDL was greater than 70 we did increase her atorvastatin dose from 40 to 80 mg at discharge and recommended follow-up cholesterol panel be performed in 3 months. She was started on aspirin 81 mg daily, Plavix 75 mg daily, Coreg 12.5 mg p.o. twice daily, hydrochlorothiazide 25 mg daily, and maintained on her losartan. We verified that she was recently started on Eliquis and metoprolol for concern of atrial flutter. She had no atrial arrhythmias noted while she was hospitalized. I will discharge her with a 30-day event monitor and hold off on taking the Eliquis. Her event monitor can be reviewed with cardiology and if she does have any signs of atrial fibrillation or flutter this should be able to pick it up and she can be treated appropriately at that time. She does not need the metoprolol as she was placed on Coreg during her hospitalization. An echocardiogram was performed and did show a mildly depressed EF at 45% with severe inferior, inferior septal and posterior basal hypokinesis with mild to moderate mitral valve insufficiency. As noted above she was placed on appropriate goal-directed therapy and will need to follow-up echocardiogram in the future to reassess her EF, hopefully the drop in EF is related to some stunned myocardium from her infarct and not permanent damage. Patient was able to be discharged home in stable condition on 03/11/2023. We have a follow-up appointment to be seen in cardiology office at the end of March and have asked her to follow-up with her primary care physician within the next 2 weeks. I would recommend that she be referred for sleep study as her body habitus increases her risk for obstructive sleep apnea which could in turn increase stress on her heart. Discharge diagnoses: STEMI Ischemic cardiomyopathy-EF 45%--> hopefully related to stunned myocardium Leukocytosis-resolved Anemia-mild Hypertension Hyperlipidemia DM-2-A1c 6.7 Hypothyroidism Restless leg syndrome GERD CKD stage IIIb Osteoarthritis History of ductal carcinoma of the right breast History of skin cancer Depression Obesity Physical Exam Const alert, oriented x3, no apparent distress, average body habitus, no limitations and well nourished Constitutional Narrative: Obese, older, white female, sitting up in bed watching television, at bedside, appears comfortable and nontoxic General Appearance: cooperative, comfortable, well kempt and well developed Orientation / Consciousness: awake, oriented to person, oriented to place and oriented to time Exam Limitations: no limitations Nutritional Appearance: obese HEENT normocephalic, head/scalp atraumatic, hearing grossly normal bilaterally and moist oral mucous membranes HEENT Narrative: Mallampati 3, no thrush Eyes PERRL, EOMs intact bilaterally and conjunctivae normal Eyes Narrative: No scleral icterus Neck no lymphadenopathy and supple Neck Narrative: Neck is short and thick, trachea is midline, no thyroid enlargement noted Resp normal respiratory effort, no retractions, no use of accessory muscles and clear to auscultation bilaterally Auscultation: Negative for rales, rhonchi or wheezes Cardio regular rate, regular rhythm, S1 normal heart sound, S2 normal heart sound, no murmurs, no rub, no gallops and no clicks GI normal to inspection, nondistended, normoactive bowel sounds, soft to palpation and non-tender Extremity no clubbing, cyanosis or edema Extremity Narrative: Pedal pulses are 2+ Skin no rashes or lesions noted, no wounds, skin turgor normal and no jaundice Neuro oriented x3, CN's II-XII intact bilaterally, moves all extremities and no focal motor deficits Sensorium / Orientation: awake, alert, oriented to person, oriented to place and oriented to time Speech: speech normal Motor Exam: strength 5/5 throughout Psych affect normal Psych Narrative: Eye contact is good, patient interacts appropriately Weight / BMI Weight Weight: 81.2 kg Body Mass Index (BMI) 29.7 ABG / Lab / Microbiology Data 03/11/23 05:55 03/11/23 05:55 Laboratory: Laboratory Results - last 24 hr 03/11/23 05:55: WBC 9.0, RBC 3.63 L, Hgb 10.6 L, Hct 33.1 L, MCV 91.2, MCH 29.2, MCHC 32.0, RDW Std Deviation 44.9 H, RDW Coeff of Nilda 13.4, Plt Count 271, MPV 9.9, Immature Gran % (Auto) 0.300, Neut % (Auto) 64.1, Lymph % (Auto) 22.5, [place] % (Auto) 10.1 H, Eos % (Auto) 2.3, Baso % (Auto) 0.7, Absolute Neuts (auto) 5.8, Absolute Lymphs (auto) 2.03, Nucleated RBC % 0, Sodium 139, Potassium 3.6, Chloride 106, Carbon Dioxide 24.0, Anion Gap 9, BUN 23 H, Creatinine 1.05 H, Estim Creat Clear Calc 44.86, Est GFR (MDRD) Af Amer 67, Est GFR (MDRD) Non-Af 55 L, BUN/Creatinine Ratio 21.9 H, Glucose 149 H, Calcium 8.6, Phosphorus 4.9, Magnesium 1.8, Triglycerides 170, Cholesterol 170, LDL Cholesterol 82, VLDL Cholesterol 34, HDL Cholesterol 54 D/C Instructions Discharge Diet: Low fat / Low cholesterol and 1800 Calorie Control Diet Discharge Activity: Return to Normal Activity Meaningful Use Info Meaningful Use Diagnoses (Choose all that apply): AMI AMI/Post PCI/Angioplasty Aspirin given w/in 24hrs of arrival?: Yes ASA at discharge?: Yes Antiplatelet Therapy at Discharge:: Yes Statins at discharge?: Yes Vimal/ARB at discharge?: Yes Beta More[place] at discharge?: Yes Done w/ Acute CA measure.: Yes Documented LVEF (%): 45 Discharge Plan Admission Admit Date/Time: 03/09/23 21:20 Primary Reason for Your Visit: Chest Pain Attending Provider: Mildred Pedersen Primary Care Provider: Akbar Farias Consulting Providers: Radha Hammonds; Jon Whiting Instructions Patient Instructions: First Aid: Heart Attacks, Exercising After a Heart Attack, Heart Attack Questions, Heart Attack: Leaving the Hospital, Heart Attack: Back at Home, Heart Attack Resuming Sex Discharge Orders/Prescriptions Prescriptions: New aspirin 81 mg Tablet,Delayed Release (Dr/Ec) 81 mg PO DAILY@0800 Qty: 0 0RF atorvastatin 80 mg Tablet 80 mg PO QHS Qty: 30 1RF carvedilol 12.5 mg Tablet 12.5 mg PO BID Qty: 60 1RF clopidogrel 75 mg Tablet 75 mg PO DAILY Qty: 30 11RF hydrochlorothiazide 25 mg Tablet 25 mg PO DAILY Qty: 30 1RF Continued pramipexole 0.5 MG tablet 0.5 mg PO BID omeprazole 20 MG capsule 40 mg PO DAILY losartan 50 MG tablet 100 mg PO DAILY amlodipine 5 MG tablet 5 mg PO DAILY acetaminophen 500 MG tablet 500 mg PO BID PRN PRN (Reason: Pain Or Fever) metformin 500 mg tablet 1,000 mg PO BID dninjolgrifv-Tj-hfga-minerals 1 EACH tablet 1 ea PO DAILY citalopram 20 mg tablet 20 mg PO QHS levothyroxine 125 mcg tablet 125 mcg PO MOTUWETHFRSA Rx Instructions: takes 125mcg m-s and a half a tab on sundays calcium carbonate [Calcium 500] 500 mg calcium (1,250 mg) tablet,chewable 500 mg PO DAILY Discontinued atorvastatin 40 MG tablet 40 mg PO QHS metoprolol tartrate 50 mg tablet 50 mg PO DAILY Rx Instructions: pt just got filled. not yet started No Action Eliquis DVT-PE Treat 30D Start 5 mg (74 tabs) tablets,dose pack 10 mg PO Q12H Rx Instructions: pt just had filled. not started yet. to take 10mg bid for 1 week then 5mg bid Other Ambulatory Orders: 30 Day Event Recorder Preventi (Urgent) Timeframe: 1 Day Facility: [facility] - Location: Cardiovascular Services Ordered By: Dr. Mildred Pedersen Referrals / Follow Up: Akbar Farias MD [Primary Care Provider] - Within 2 Weeks (Please call the office to schedule an appt. ) Josh Greene NP, [facility] [Med Staff - Adv Practice Prof] - 04/05/23 10:00 am Disposition Disposition (needs filled in before D/C Order can be placed): Home, Self Care Charges/Coding Visit Charges Inpatient E&M: 50749 Disch Hosp >30min
[2023-03-11 12:58] VITALS: BP 145/86; PULSE 77; RESP 18; TEMP 36.9; O2SAT 98
--- NOTE | 2023-03-11 13:05 | CASEMGMT ---
RN CM NOTE: Pt being discharged. RN CM to room. Introduced self and role. Pt denies having any discharge planning needs or concerns. Sudheer OCASION RN CM
--- NOTE | 2023-03-11 13:40 | PHA.DC_ITS ---
Pharmacy [facility] has performed discharge medication reconciliation and counseling for this patient. The patient's discharge medication list was reviewed for discrepancies and discrepancies were resolved. The patient was counseled on the following discharge medications and changes in medications for homegoing were reviewed. The Reason for Use, instructions for use, and potential side effects were reviewed for all new medications. The patient's questions regarding all of their medications were answered. 1. aspirin 81 mg PO daily 2. clopidogrel 75 mg PO daily 3. atorvastatin 80 mg PO daily 4. carvedilol 12.5 mg PO BID 5. hydrochlorothiazide 25 mg PO daily The patient was able to verbally demonstrate an understanding of their discharge medications. Medications at Discharge Home Medications pramipexole 0.5 mg tablet 0.5 mg PO BID restless legs 06/02/16 losartan 50 mg tablet 100 mg PO DAILY blood pressure 08/03/16 omeprazole 20 mg capsule,delayed release 40 mg PO DAILY 08/03/16 hbnxvrfzhlfn-Ou-wair-minerals 1 ea PO DAILY vitamin 05/12/17 acetaminophen 500 mg tablet 500 mg PO BID PRN PRN Pain Or Fever 08/14/19 amlodipine 5 mg tablet 5 mg PO DAILY 08/14/19 metformin 500 mg tablet 1,000 mg PO BID 02/09/21 calcium carbonate 500 mg calcium (1,250 mg) chewable tablet (Calcium 500) 500 mg PO DAILY calcium 03/10/23 citalopram 20 mg tablet 20 mg PO QHS depression 03/10/23 levothyroxine 125 mcg tablet 125 mcg PO MOTUWETHFRSA thyroid 03/10/23 aspirin 81 mg tablet,delayed release 81 mg PO DAILY@0800 #0 tabs 03/11/23 atorvastatin 80 mg tablet 80 mg PO QHS #30 tabs 03/11/23 carvedilol 12.5 mg tablet 12.5 mg PO BID #60 tabs 03/11/23 clopidogrel 75 mg tablet 75 mg PO DAILY #30 tabs 03/11/23 hydrochlorothiazide 25 mg tablet 25 mg PO DAILY #30 tabs 03/11/23
== END 2023-03-11 13:53 | disposition home or self-care (01) | DRG 322 ==
LOC: ED 19:55 → ICU 20:10 → PCU 03-10 10:57
PROVIDERS: Internal Medicine Cardiovascular Disease; Admitting Provider Internal Medicine; Emergency Provider Emergency Medicine; PCP Family Medicine; Visit Provider Internal Medicine
DX: I21.11 ST elevation (STEMI) myocardial infarction involving right coronary artery (principal); I48.92 Unspecified atrial flutter; D63.1 Anemia in chronic kidney disease; E11.22 Type 2 diabetes mellitus with diabetic chronic kidney disease; N18.32 Chronic kidney disease, stage 3b; E11.65 Type 2 diabetes mellitus with hyperglycemia; E03.9 Hypothyroidism, unspecified; G25.81 Restless legs syndrome; F32.A Depression, unspecified; I12.9 Hypertensive chronic kidney disease with stage 1 through stage 4 chronic kidney disease, or unspecified chronic kidney disease; I25.10 Atherosclerotic heart disease of native coronary artery without angina pectoris; K21.9 Gastro-esophageal reflux disease without esophagitis; E78.00 Pure hypercholesterolemia, unspecified; I25.5 Ischemic cardiomyopathy; M19.90 Unspecified osteoarthritis, unspecified site; E66.9 Obesity, unspecified; Z68.30 Body mass index [BMI] 30.0-30.9, adult; Z90.11 Acquired absence of right breast and nipple; Z79.01 Long term (current) use of anticoagulants; Z79.02 Long term (current) use of antithrombotics/antiplatelets; Z79.82 Long term (current) use of aspirin; Z79.84 Long term (current) use of oral hypoglycemic drugs; Z79.899 Other long term (current) drug therapy; Z85.3 Personal history of malignant neoplasm of breast; Z85.828 Personal history of other malignant neoplasm of skin; Z82.49 Family history of ischemic heart disease and other diseases of the circulatory system
CPT/HCPCS: 36415; 71045; 80048; 80053; 80061; 83036; 83735; 84100; 84443; 84484; 85025; 85027; 85347; 92941; 92973; 93005; 93306; 93458; 99285; C1757; J7040; Q9957; Q9967; A4216; C1725; C1769; C1874; C1887; C1894; C8929; C9606; J1940

== ENCOUNTER → 2023-03-09 | Outpatient (CLI) | payer MEDICARE, SELFPAY ==
[2023-03-09 17:35] LABS: Absolute Lymphocyte Count 0.91 X10^3/uL (0.83-4.51); Absolute Neutrophil Count 11.4 X10^3/uL (2.0-7.7); Basophil# 0.05 X10^3/uL; Basophil% 0.4 % (0-1); Eosinophil# 0.02 X10^3/uL; Eosinophils% 0.2 % (0-5); Hematocrit 37.2 % (37-47); Hemoglobin 11.9 g/dL (12.0-15.0); Lymphocyte # 0.91 X10^3/ul (0.83-4.51); Mean Corpuscular Hgb 29.6 pg (27.0-32.0); Mean Corpuscular Volume 92.5 fL (81-99); Mean Platelet Vol. 10.3 fl (6.2-12.0); Monocyte# 0.49 X10^3/uL; Monocyte% 3.8 % (0-10); NRBC Flagged by Analyzer 0 % (0-5); Neutrophil # 11.38 X10^3/uL (2.7-7.7); Neutrophil % 87.8 % (47-70); Platelet Count 353 K/mm3 (150-450); RBC Distribution Width CV 13.4 % (11.6-14.6); RBC Distribution Width SD 45.7 fl (35.1-43.9); Red Blood Count 4.02 M/mm3 (4.2-5.4)
[2023-03-09 18:56] LABS: ALB/GLOB Ratio 0.9 RATIO (0.9-2.4); AST(SGOT) 39 U/L (15-37); Alanine Aminotransfer ALT/SGPT 51 U/L (13-56); Albumin, Serum 3.7 g/dL (3.2-5.0); Alkaline Phosphatase 128 U/L (45-117); Anion Gap 11 (5-15); BUN 18 mg/dL (7-18); BUN/Creat Ratio 16.5 RATIO (10-20); Calcium,Total 8.5 mg/dL (8.5-10.1); Chloride 105 mmol/L (98-107); Cholesterol 198 mg/dL (200); Creatinine, Serum 1.09 mg/dL (0.55-1.02); EST Glomerular Filtration Rate 53 mL/min (>60); Est Glom Filt Rate - Afr Amer 64 mL/min (>60); Glucose 170 mg/dL (74-106); Hemoglobin A1c 6.8 % (3.8-5.6); High Density Lipoprotein 58 mg/dL; Potassium 4.2 mmol/L (3.5-5.1); Protein, Total 7.7 g/dL (6.4-8.2); Sodium Level 137 mmol/L (136-145); Thyroid Stim Hormone (TSH) 0.43 uIU/mL (0.358-3.74); Triglycerides 116 mg/dL; Troponin-I HS 938 pg/mL (3.0-54.0); Very Low Density Lipoprotein 23 mg/dL (5-40)
== END | disposition home or self-care (01) ==
LOC: MFPLAB 14:15
PROVIDERS: PCP Family Medicine; Visit Provider Family Medicine
DX: I48.92 Unspecified atrial flutter (principal); E11.65 Type 2 diabetes mellitus with hyperglycemia
CPT/HCPCS: 80053; 80061; 83036; 84443; 84484; 85025

== ENCOUNTER → 2023-03-22 | Outpatient (CLI) | payer MEDICARE, SELFPAY ==
--- NOTE | 2023-03-22 09:01 | CR.HP_ITS ---
CR - History & Physical General Arrival date:: 03/22/23 Arrival time:: 09:01 Date of Referral:: 03/10/23 Date of CR Evaluation:: 03/22/23 Referring Physician: Dr. Hammonds Primary Diagnosis: PCI with stent, STEMI History of Present Cardiac Event Onset Date Acute Myocardial Infarction within 12 months:: Yes PTCA or coronary stenting:: Yes Vessel: RCA 03/09/23 Medications Ambulatory Orders Medication Instructions Recorded pramipexole 0.5 mg tablet 0.5 mg PO BID restless legs 06/02/16 losartan 50 mg tablet 100 mg PO DAILY blood pressure 08/03/16 omeprazole 20 mg capsule,delayed 40 mg PO DAILY 08/03/16 release brjnjoaxhpsp-Yp-heai-minerals 1 ea PO DAILY vitamin 05/12/17 acetaminophen 500 mg tablet 500 mg PO BID PRN PRN Pain Or Fever 08/14/19 amlodipine 5 mg tablet 5 mg PO DAILY 08/14/19 metformin 500 mg tablet 1,000 mg PO BID 02/09/21 calcium carbonate 500 mg calcium 500 mg PO DAILY calcium 03/10/23 (1,250 mg) chewable tablet (Calcium 500) citalopram 20 mg tablet 20 mg PO QHS depression 03/10/23 levothyroxine 125 mcg tablet 125 mcg PO MOTUWETHFRSA thyroid 03/10/23 aspirin 81 mg tablet,delayed 81 mg PO DAILY@0800 #0 tabs 03/11/23 release atorvastatin 80 mg tablet 80 mg PO QHS #30 tabs 03/11/23 carvedilol 12.5 mg tablet 12.5 mg PO BID #60 tabs 03/11/23 clopidogrel 75 mg tablet 75 mg PO DAILY #30 tabs 03/11/23 hydrochlorothiazide 25 mg tablet 25 mg PO DAILY #30 tabs 03/11/23 Allergies Allergies Penicillins [PCN] Allergy (Severe, Verified 03/09/23 19:23) Hives bee venom protein (honey bee) Allergy (Verified 03/09/23 19:23) Anaphylaxis Sleep Disorder Evaluation Hx of Sleep Apnea: No Do you snore loudly (louder than talking or can be heard through closed doors)?: Yes Do you often feel tired/ fatigued/ sleepy during daytime?: No Has anyone observed you stop breathing during sleep?: No History of Hypertension (for STOP score): Yes (pt declines a sleep study) STOP Results: Positive Advanced Directives Advanced Directives Power of Supervisory Investigative Specialist: No Living Will: No Advance Directives Information Provided: No Advance Directives on File: No DNR Order?:: No Past Medical History Covid-19 Screening Physicial Symptoms Other Clinical Concerns Exposure Risk Pertinent Comorbidities Has a serious heart condition:: Yes Diabetic:: Yes Past Medical Illness Past Medical History (Updated 03/17/23 @ 00:12 by Background Daemon) Benign breast cyst in female N60.09 Breast cancer C50.919 Breast lump in female N63.0 Coronary artery disease I25.10 Depression F32.9 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 Mammogram 01/24/2023 reviewed, no malignancy. Labs reviewed, within normal limits. Hyperlipidemia E78.5 Hypertension I10 Hypothyroidism E03.9 Skin cancer C44.90 Sleep-disordered breathing G47.30 ST elevation (STEMI) myocardial infarction I21.3 Stage 3b chronic kidney disease (CKD) N18.32 Thyroid disease E07.9 Trimalleolar fracture of right ankle S82.851A Type 2 diabetes mellitus E11.9 Past Surgical History Past Surgical History (Updated 03/17/23 @ 00:12 by Background Daemon) H/O mastectomy Z98.890, Z90.10 History of ankle surgery Z98.890 Right History of Mohs micrographic surgery for skin cancer Z85.828, Z98.890 X2 History of reconstruction of right breast Z98.890 2012 Hx of colonoscopy Z98.890 2016 Hx of right mastectomy Z90.11 2005 Hx of tonsillectomy Z98.890, Z90.89 Status post open reduction with internal fixation (ORIF) of fracture of ankle Z96.7, Z87.81 Stented coronary artery (~03/09/22) Z95.5 Prox RCA- [place] 3.5x30 mm Surgical History: noncontributory Family History Summary Family History Mother Heart disease Breast cancer Lung cancer Hyperlipidemia Arthritis Diabetes Hypertension Kidney disease Social History Smoking History Smoking Status: Never smoker Occupation Occupation (List type of work in comments):: Retired Hobbies, Recreation, Social Activities Hobbies: Sewing and Other (latter-day) Recreational Activities: I am able to engage in all my recreational activities Social Environment Status Marital Status: Current Living Arrangements Living Environment:: Spouse Children How many children do you have?: 1 Do any of your children live nearby?: Yes Safety Do you feel safe in your surroundings?: Yes Assistance Do you need any assistance at home?: no Review of Systems Review of Systems Hints Review of Present Symptoms: Reports Shortness of Breath with Exertion, Dizziness/Lightheadedness, Fatigue and Appetite - Special Diet; Denies Shortness of Breath at Rest, PVD, Operative Discomfort, Angina, Wound Healing, Heart Arrhythmia/Irregularities, Appetite - Normal, Sleep - Normal or Sexual Changes Pain Is Patient Pain Free?: No Pain Location: other (general joint pain) Pain Level: 10/14 Risk Factor Assessment Chief Complaint Chief Complaint: PCI with stent, STEMI Vital Signs Pulse Ox: 97 Blood Pressure: 148/83 Pulse Pulse Rate: 87 Hypertension How long have you been treated?: 20 years Diabetes Diabetic History: Type II Nutrition Referral for Diabetes: No Obesity Height: 5 ft 5 in Weight:: 182 lb Weight in Pounds: 182.0 lbs Body Mass Index (BMI): 30.2 Nutritional Referral for Obesity: No Physical Inactivity Physical Inactivity: Recreational activity (walking around the house) Risk Stratification Risk Guidelines: Lowest Risk: Risk Factor for Smoking, Moderate Risk: Risk Factor for Diabetes, Risk Factor for Obesity and Risk Factor for Sedentary Lifestyle and Highest Risk: Risk Factor for Dyslipidemia, Risk Factor for Hypertension and Risk Factor for Depression For Smoking Smoking Risk Guidelines For Dyslipidemia Dyslipidemia Risk Guidelines For Diabetes Mellitus Diabetes Risk Guidelines For Obesity/Overweight Obesity/Overweight Risk Guidelines For Hypertension Hypertension Risk Guidelines For Sedentary Lifestyle Sedentary Lifestyle Risk Guidelines For Depression Depression Risk Guidelines Family History Family History Mother Heart disease Breast cancer Lung cancer Hyperlipidemia Arthritis Diabetes Hypertension Kidney disease Motivation Motivation to Participate On a scale of 1 to 10, how prepared are you to commit to attending program?: 8 What do you see as barriers to successfully being able to complete the program?: arthritis What do you see as the benefits of succesfully completing the program? In other words, what do you hope to get out of participating in the program?: longer life Are there issues you are dealing with that will interfere with completing the program?: no Do you have a spouse or signficant other, family or friends who will help support you to complete the program?: yes
[2023-03-22 09:07] VITALS: BP 148/83; PULSE 87; O2SAT 97
--- NOTE | 2023-03-22 09:07 | CR.ITP_ITS ---
Diagnosis General Information Admitting Diagnosis: PCi with stent, STEMI Personal Learning Style:: Audio/Visual Stage of change r/t lifestyle modifications:: Contemplation Gave educational material for:: Treating Heart Disease, How The Heart Works, Wha t it means to have Heart Disease, How Coronary Artery Disease is Diagnosed, Heart Procedures, What Heart Medications Do, Risk Factors & Modifications, Living an Active Life, Nutrition, Emotions & Heart Disease, Stress Management & Relaxation and Sleep Disorders & Heart Disease Education/Goals Cardiac Rehabilitation Goals Personal Goals: Initial Assessment: Improve energy level, Improve knowledge of cardiac disease and Improve muscle strength and endurance Scale for measuring improvement of personal goals Diagnosis & Disease Process Outcomes/Goals: Pt IDs own risk factors & lifestyle modifications by Session 10, Verbalizes symptoms of angina & response by session 3., Pt independently manages and Other Additional Outcomes/Goals: Plan/Interventions: Assist Pt to ID & engage in lifestyle modification to reduce CVD risk, Instruct on individual risk factors, Review symptoms of angina & emergency actions, Review secondary diagnosis & identify educational needs. and Other see comment 30 day Reassessments:: Not Met 30 day Reassessments:: Not Met 30 day Reassessments:: Not Met 30 day Reassessments:: Not Met Final Reassessments:: Not Met Safety Referral to Physical Therapy: No Referral to [facility] Case Management: No Fall Risk Assessed:: Yes Assistive Devices:: None Exercise - Initial Assessment Visit Date of Eval: 03/22/23 (initial eval ) Mets: Pre-: >3 METS for 30 minutes by discharge, >5 METS for 30 minutes by discharge, >7 METS for 30 minutes by discharge and Unable to meet goal due to: (see comment below) Physician Prescribed Exercise Modalities: Treadmill, Rower, Airdyne, NuStep, SciFit and Lateral [place] Frequency: 3x/week for 12 weeks [36 sessions] Intensity: 60-80% of age predicted maximum heart rate reserve Current METSs:: 3 Target Heart Rate:: 90-105 Resting Blood Pressure: 148/83 EKG Type: NSR w/LBBB Outcomes & Goals Goals:: Verbalizes understanding of THR, RPE & goal METS by session 6, Documents in home exercise log/reports 30 min aerobic 5 day/wk by DC, Demonstrates accurate pulse taking by DC and Other additional outcome/goals: see below Intervention & Plan Exercise Program Goals: Instruct on personal THR & RPE, Instruct on MET level & personal MET goal, Show patient to take own pulse /validate performance until accurate, Instruct on home exercise and Other additional plan/int Physical Activity Home Exercise Physical Activity - Home Exercise: Safe Exercise, Warm-up, Self-monitoring, Cool-Down, Home Exercise > 30 min Daily and Sitting Time <3 hours/daily Outcomes & Goals Outcomes/Goals: Demonstrates correct Warm-up/exercise Cool-Down (S3) if = 2.5 METs, Verbalizes symptoms of exercise intolerance by Session 3 (S3), Demonstrate safe equipment use (S3) & follows exercise prescrition (6) and Other: See below Intervention & Plan Plan/Intervention: Instruct warm-up & cool-down if exercising at > 2 METs, Instruct on symptoms of exercise intolerance & actions to take, Instruct & monitor on saf, Assess intial functional capacity & safety risk and Other See below Nutrition - Initial Assessment Program Goals Nutrition Program Goals Patient has diagnosis of Hyperlipidemia (ICD E78)?: Yes Visit Date of Eval: 03/22/23 (initial eval ) Cholesterol/Lipids (Other Core Measures) Determine presence & major risk factors that modify LDL goal: Hypertension or hypertensive medication, Low HDL cholesterol <40 mg/dL*, Family history of premature CHD in Male < 55 years: female <65 yearsFa and Age men > 45 years; wo men >/= 55 years Outcomes/Goals: Pt IDs own risk factors & lifestyle modifications by Session 10, Verbalizes symptoms of angina & response by session 3., Pt independently manages and Other Additional Outcomes/Goals: Intervention/Plan: Advocate for lipid panel cholesterol medication if applicable, Instruct on personal lipid levels & lipid goals/NCEP guidelines, Instruct on cholesterol and Other additional plan/int Referral to dietitian:: No Diabetes (Other Core Measures) Diabetes Type: Diagnosis Type II ICD-10 E11 Non-Insulin Dependent?: Yes Do you monitor your blood sugar at home?: Yes Referral to Diabetic Clinic:: No (declines) Outcomes/Goals:: Able to state symptoms of, Able to state, Able to state and Other additional Intervention/Plan:: Instruct on, Refer to, Instruct on and Other Weight Mgt (Other Care) Height: 5 ft 5 in Weight:: 182 lb BMI: 30.2 Diagnosis Overweight/Obesity BMI> 30% ICD-10 E66: Yes Diagnosis High BMI/Morbid Obesity BMI> 35% ICD-10 Z68: No Outcomes/Goals: Pt sets, maintains & shows weight loss goal & trend during rehab and Other additional outcomes/goals Intervention/Plan: Instruct on ideal BMI & set weight loss goal w/patient, Assist pt to ID & incorporate diet changes for weight loss by S9, Refer to Structured Weight Loss program as appropriate, Encourage goal of using 250- 300dcal per session for weight loss and Other additional plan/interventions Healthy Eating Habits Will attend diet classes:: Yes Outcomes/Goals:: Consume diet rich in vegs,fruits,whole grain/high fiber,fish,lean meat, Limit sat/trans fats,cholesterol & added salts & sugars and Other additional outcome/goals: Intervention/Plan:: Assess current eating habits and Other Additional plan/interventions Education Gave educational materials for:: Signs & symptoms of hypoglycemia, Signs & symptoms of hyperglycemia, Relate diabetes to coronary artery disease and Healthy eating Core - Initial Assessment Visit Date of Eval: 03/22/23 (initial eval ) Medication Compliance Preventative Medication(s):: Aspirin, Clopidogrel/P2Y12 inhibit, Statin/lipid, Beta richie and ARB (Angiotensi Rcap) H/O mental health issues: depression, anxiety, or addiction?: Yes Doesn?t believe in the benefits of treatment?: No Believes medications are unnecessary or harmful?: No Has a concern about medication side effects?: No Expresses concern over the cost of medications?: No Outcomes/Goals: Verbalizes medications,desired effect & common side effects @ DC, Pt self-reports following medication regimen, Keeps card in wallet w/medications listed by DC and Other additional outcome/goals: Interventions/plans: Instruct on medication effects & side effects, Review medication list w/patient every two weeks, Instruct importance of taking meds as ordered & assist problem solving and Other additional Tobacco Use Tobacco Use: Non-smoker Hypertension Hypertension Diagnosis:: Hypertension ICD-10 I10 Resting Blood Pressure:: 148/83 Citizen Of [place] Heart Association Hypertension Guidelines Outcomes/Goals: Able to verbalize/achieve optimal blood pressure <130/80, Incorporates diet changes & exercise for blood pressure control by DC and Other additional outcomes/goals Interventions/plan: Instruct on optimal blood pressure, hypertension & medications, Instruct on effects of sodium, alcohol, stress, exercise &hypertension and Other additional plan/interventions Tobacco Cessation Referral Smoking Cessation Referral:: No Individual Education/Counseling:: No Education Schedule Given:: Yes Psychosocial - Initial Assess VIsit Date of Eval: 03/22/23 (initial eval ) History of previous Mental disease:: Yes History of Emotional Disorders: Depression (pt is on meds ) Target Goals Target Goals Psychosocial Test Tool Used:: Laura Nguyen QOL Cardiac and PHQ-9 Questionnaire phq-9 Severity Outcomes/Goals: See list Psychosocial Outcomes/Goals:: ID's personal stressors & 2 strategies to manage stress by discharge and Other Additional outcome/goals: Intervention/Plan: See List Interventions/Plan:: Assess stressors,coping strategies & signs of derpression on admission, Instruct/assist pt to develop coping & personal stress Mgt strategies, Refer to Behavioral Health if appropriate, Refer to Physician if appropriate, Instruct patient to recognize signs & symptoms of depression, Instruct patient to recog and Other additional plan/intervention Patient Health Questionnaire PHQ-9 Screening Initial Assessment: 1. Little interest or pleasure in doing things: Several days 2. Feeling down, depressed, or hopeless: Not at all 3. Trouble falling or staying asleep, or sleeping too much: Several days 4. Feeling tired or having little energy: Nearly every day 5. Poor appetite or overeating: Not at all 6. Feeling bad about yourself -- or that you are a failure or have let yourself or your family down: Not at all 7. Trouble concentrating on things, such as reading the newspaper or watching television: More than half the days 8. Moving or speaking so slowly that other people could have noticed. Or the opposite - being so fidgety or restless that you have been moving around a lot more than usual: Not at all 9. Thoughts that you would be better off , or of hurting yourself in some way: Not at all How difficult have these problems made it for you to do your work, take care of things at home, or get along with other people?: Somewhat difficult Total Score: 7 MINDY-Q SV Test Statements CAD is a disease of the arteries in the heart: False Examples of risk factors for heart disease: True Angina is chest pain or discomfort: True The benefits of resistance training include: True Eating more meat and dairy products: False Anti-platelet medications such as aspirin are important: True The only effective way to manage stress: I Don't Know An exercise warm-up slowly increases heart rate: True Prepared, processed foods usually have high sodium: True Depression is common after a heart attack: I Don't Know The statin medications lower cholesterol: I Don't Know To control blood pressure, lower the amount of sodium: I Don't Know If someone gets chest discomfort during walking: False Transfats are partially hydrogenated vegetable oils: False Sleep apnea that is not treated increases the risk: I Don't Know To control cholesterol, one should become a vegetarian: I Don't Know Someone knows if he/she is exercising at the right level: True Diabetes cannot be prevented with exercise & health eating: I Don't Know Stress is a large risk for heart attack: I Don't Know A diet that can help lower blood pressure is rich in: I Don't Know Total Score Total Correct Responses: 10 Self-Efficacy 6-Item Scale Initial Assessment: We would like to know how confident you are in doing certain activities. Please select your confidence level for: Fatigue Select Number: 3 Physical Discomfort or Pain Select Number: 9 Emotional Distress Select Number: 3 Other Symptoms or Health Problems Select Number: 3 Different Tasks and Activities Select Number: 2 Medication Select Number: 2 Total Score:: 3 Nutrition Survey Nutrition Survey Instructions Scoring Instructions Nutrition Survey Initial: Have you lost >10 lbs over the past 2 months without trying?: No Are you following a special diet at home for diabetes, low fat, or low salt?: Yes Are you interested in meeting with a dietitian for help understanding your diet?: No Do you eat less than 3 meals a day?: No Do you eat fatty meats (sexton, sausage, ribs, etc), fried foods, desserts, large amounts of salad dressings, margarine, butter, or cheese most days?: No Do you have food allergies? [Enter types in comment field]: No Do you eat in restaurants more than 3 times a week?: No Do you season food with salt, seasoning salt, or garlic salt?: No Do you used canned, boxed, frozen meals, or soups, seasoning packets?: No Total Score:: 1 Exercise - Final/Discharge Physician Prescribed Exercise Modalities: Treadmill, Rower, Airdyne, NuStep, SciFit and Lateral Licensed Prosthetist/Orthotist Frequency: 3x/week for 12 weeks [36 sessions] Intensity: 60-80% of age predicted maximum heart rate reserve Current METSs:: 3 Target Heart Rate:: 90-105 Nutrition - 30-Day Assessment Weight Mgt (Other Care) Height: 5 ft 5 in Weight:: 182 lb BMI: 30.2 Nutrition - 60-Day Assessment Weight Mgt (Other Care) Height: 5 ft 5 in Weight:: 182 lb BMI: 30.2 Core - Final Assessment Hypertension Resting Blood Pressure:: 148/83 Citizen [place] Heart Association Hypertension Guidelines Core - 60-Day Assessment Hypertension Resting Blood Pressure:: 148/83 Citizen [place] Heart Association Hypertension Guidelines Psychosocial - 30-Day Assess Target Goals Target Goals Psychosocial - 60-Day Assess Target Goals Target Goals Psychosocial - 90-Day Assess Target Goals Target Goals Psychosocial - Final Assessmen Target Goals Target Goals Nutrition - 90-Day Assessment Weight Mgt (Other Care) Height: 5 ft 5 in Weight:: 182 lb BMI: 30.2 Nutrition - Final Assessment Program Goals Patient has diagnosis of Hyperlipidemia (ICD E78)?: Yes Weight Mgt (Other Care) Height: 5 ft 5 in Weight:: 182 lb BMI: 30.2
[2023-03-22 09:15] VITALS: BP 148/83
[2023-03-22 09:30] VITALS: BMI 30.2
[2023-03-22 09:52] VITALS: BMI 30.2
== END | disposition home or self-care (01) ==
LOC: CR 08:55
PROVIDERS: PCP Family Medicine; Referring Provider Internal Medicine Cardiovascular Disease; Visit Provider Internal Medicine Cardiovascular Disease
DX: Z00.00 Encounter for general adult medical examination without abnormal findings (principal)

== ENCOUNTER 2023-04-06 14:15 | Outpatient (RCR) | payer MEDICARE, SELFPAY ==
[2023-03-22 09:52] VITALS: BMI 30.2
== END 2023-04-06 23:59 ==
LOC: CR 14:15
PROVIDERS: PCP Family Medicine; Referring Provider Internal Medicine Cardiovascular Disease; Visit Provider Internal Medicine Cardiovascular Disease
DX: I21.3 ST elevation (STEMI) myocardial infarction of unspecified site (principal); Z95.5 Presence of coronary angioplasty implant and graft
CPT/HCPCS: 93798

== ENCOUNTER 2023-05-04 14:15 | Outpatient (RCR) | payer MEDICARE, SELFPAY ==
[2023-03-22 09:52] VITALS: BMI 30.2
--- NOTE | 2023-04-22 08:54 | PCM.CR.ITP ---
Exercise - Initial Assessment Visit Session #:: 11 Nutrition - Initial Assessment Weight Mgt (Other Care) Height: 5 ft 5 in Weight:: 181 lb BMI: 30.1 Psychosocial - Initial Assess Target Goals Target Goals Patient Health Questionnaire PHQ-9 Screening 30-Day Re-eval Assessment: 1. Little interest or pleasure in doing things: Several days 2. Feeling down, depressed, or hopeless: Not at all 3. Trouble falling or staying asleep, or sleeping too much: Several days 4. Feeling tired or having little energy: Nearly every day 5. Poor appetite or overeating: Not at all 6. Feeling bad about yourself -- or that you are a failure or have let yourself or your family down: Not at all 7. Trouble concentrating on things, such as reading the newspaper or watching television: More than half the days 8. Moving or speaking so slowly that other people could have noticed. Or the opposite - being so fidgety or restless that you have been moving around a lot more than usual: Not at all 9. Thoughts that you would be better off , or of hurting yourself in some way: Not at all How difficult have these problems made it for you to do your work, take care of things at home, or get along with other people?: Somewhat difficult Total Score: 7 Nutrition Survey Nutrition Survey Instructions Scoring Instructions Exercise - 30-day Assessment Visit Date of Eval: 04/22/23 Session #:: 11 Physician Prescribed Exercise Modalities: Treadmill, Airdyne and NuStep Frequency: 3x/week for 12 weeks [36 sessions] Intensity: 60-80% of age predicted maximum heart rate reserve Duration: 30 - 45 minutes Current METSs:: 3.5 Target Heart Rate:: 90-105 Current RPE:: 12-13 Maximum Excercise HR:: 94 Resting Blood Pressure: 118/58 Maximum Exercise Blood Pressure: 138/50 EKG Type: NSR with BBB with Twave inversion with rare pvc, pac Outcomes & Goals Goals:: Verbalizes understanding of THR, RPE & goal METS by session 6, Documents in home exercise log/reports 30 min aerobic 5 day/wk by DC, Demonstrates accurate pulse taking by DC and Other additional outcome/goals: see below Intervention & Plan Exercise Program Goals: Instruct on personal THR & RPE, Instruct on MET level & personal MET goal, Show patient to take own pulse /validate performance until accurate, Instruct on home exercise and Other additional plan/int 30-day Reassessments 30 day Reassessments:: Progressing Reassessment Notes & Comments:: RPE explained Physical Activity Home Exercise Physical Activity - Home Exercise: Safe Exercise, Warm-up, Self-monitoring, Cool-Down, Home Exercise > 30 min Daily and Sitting Time <3 hours/daily Outcomes & Goals Outcomes/Goals: Demonstrates correct Warm-up/exercise Cool-Down (S3) if = 2.5 METs, Verbalizes symptoms of exercise intolerance by Session 3 (S3), Demonstrate safe equipment use (S3) & follows exercise prescrition (6) and Other: See below Intervention & Plan Plan/Intervention: Instruct warm-up & cool-down if exercising at > 2 METs, Instruct on symptoms of exercise intolerance & actions to take, Instruct & monitor on saf, Assess intial functional capacity & safety risk and Other See below 30-day Reassessments 30 day Reassessments:: Progressing Reassessment Notes & Comments:: warm up encouraged Nutrition - 30-Day Assessment Program Goals Nutrition Program Goals Patient has diagnosis of Hyperlipidemia (ICD E78)?: Yes Visit Date of Eval: 04/22/23 Session #:: 11 Cholesterol/Lipids (Other Core Measures) Determine presence & major risk factors that modify LDL goal: Hypertension or hypertensive medication, Low HDL cholesterol <40 mg/dL*, Family history of premature CHD in Male < 55 years: female <65 yearsFa and Age men > 45 years; women >/= 55 years Outcomes/Goals: Pt IDs own risk factors & lifestyle modifications by Session 10, Verbalizes symptoms of angina & response by session 3., Pt independently manages and Other Additional Outcomes/Goals: Intervention/Plan: Advocate for lipid panel cholesterol medication if applicable, Instruct on personal lipid levels & lipid goals/NCEP guidelines, Instruct on cholesterol and Other additional plan/int 30-day Reassessments:: Progressing Reassessment Notes & Comments:: pt to attend nutrition class Diabetes (Other Core Measures) Diabetes Type: Diagnosis Type II ICD-10 E11 Non-Insulin Dependent?: Yes Do you monitor your blood sugar at home?: Yes Referral to Diabetic Clinic:: No (pt declines) Outcomes/Goals:: Able to state symptoms of, Able to state, Able to state and Other additional Intervention/Plan:: Instruct on, Refer to, Instruct on and Other 30-day Reassessments:: Progressing Reassessment Notes & Comments:: pt to attend nutrition class Weight Mgt (Other Care) Height: 5 ft 5 in Weight:: 181 lb BMI: 30.1 Diagnosis Overweight/Obesity BMI> 30% ICD-10 E66: Yes Diagnosis High BMI/Morbid Obesity BMI> 35% ICD-10 Z68: No Outcomes/Goals: Pt sets, maintains & shows weight loss goal & trend during rehab and Other additional outcomes/goals Intervention/Plan: Instruct on ideal BMI & set weight loss goal w/patient, Assist pt to ID & incorporate diet changes for weight loss by S9, Refer to Structured Weight Loss program as appropriate, Encourage goal of using 250-300dcal per session for weight loss and Other additional plan/interventions 30 day Reassessments:: Progressing Reassessment Notes & Comments:: pt to attend nutrition class Healthy Eating Habits Will attend diet classes:: Yes Outcomes/Goals:: Consume diet rich in vegs,fruits,whole grain/high fiber,fish,lean meat, Limit sat/trans fats,cholesterol & added salts & sugars and Other additional outcome/goals: Intervention/Plan:: Assess current eating habits and Other Additional plan/interventions 30-day Reassessments:: Progressing Reassessment Notes & Comments:: pt to attend nutrition class Education Gave educational materials for:: Signs & symptoms of hypoglycemia, Signs & symptoms of hyperglycemia, Relate diabetes to coronary artery disease and Healthy eating Nutrition - 60-Day Assessment Weight Mgt (Other Care) Height: 5 ft 5 in Weight:: 181 lb BMI: 30.1 Core - 30-Day Assessment Visit Date of Eval: 04/22/23 Session #:: 11 Medication Compliance Preventative Medication(s):: Aspirin, Clopidogrel/P2Y12 inhibit, Statin/lipid, Beta richie and ARB (Angiotensi Rcap) H/O mental health issues: depression, anxiety, or addiction?: Yes Doesn?t believe in the benefits of treatment?: No Believes medications are unnecessary or harmful?: No Has a concern about medication side effects?: No Expresses concern over the cost of medications?: No Outcomes/Goals: Verbalizes medications,desired effect & common side effects @ DC, Pt self-reports following medication regimen, Keeps card in wallet w/medications listed by DC and Other additional outcome/goals: Interventions/plans: Instruct on medication effects & side effects, Review medication list w/patient every two weeks, Instruct importance of taking meds as ordered & assist problem solving and Other additional 30-day Reassessments:: Progressing Reassessment Notes & Comments:: [facility] dc'd 04/06/23 Tobacco Use Tobacco Use: Non-smoker Hypertension Hypertension Diagnosis:: Hypertension ICD-10 I10 Resting Blood Pressure:: 118/58 [place] [employer] Hypertension Guidelines Peak Exercise Blood Pressure:: 138/50 Outcomes/Goals: Able to verbalize/achieve optimal blood pressure <130/80, Incorporates diet changes & exercise for blood pressure control by DC and Other additional outcomes/goals Interventions/plan: Instruct on optimal blood pressure, hypertension & medications, Instruct on effects of sodium, alcohol, stress, exercise &hypertension and Other additional plan/interventions 30 day Reassessments:: Progressing Reassessment Notes & Comments:: [facility] dc'd 04/06/23 Tobacco Cessation Referral Smoking Cessation Referral:: No Individual Education/Counseling:: No Education Schedule Given:: Yes Core - Final Assessment Hypertension [place] [employer] Hypertension Guidelines Reassessment Notes & Comments:: [facility] dc'd 04/06/23 Core - 90 Day Assessment Hypertension [place] [employer] Hypertension Guidelines Reassessment Notes & Comments:: [facility] dc'd 04/06/23 Psychosocial - 30-Day Assess VIsit Date of Eval: 04/22/23 Session #:: 11 History of previous Mental disease:: Yes History of Emotional Disorders: Depression (pt is on meds) Target Goals Target Goals Outcomes/Goals: See list Psychosocial Outcomes/Goals:: ID's personal stressors & 2 strategies to manage stress by discharge and Other Additional outcome/goals: Intervention/Plan: See List Interventions/Plan:: Assess stressors,coping strategies & signs of derpression on admission, Instruct/assist pt to develop coping & personal stress Mgt strategies, Refer to Behavioral Health if appropriate, Refer to Physician if appropriate, Instruct patient to recognize signs & symptoms of depression, Instruct patient to recog and Other additional plan/intervention 30-day Reassessments: 30 day Reassessments:: Met Psychosocial - 60-Day Assess Target Goals Target Goals Outcomes/Goals: See list Psychosocial Outcomes/Goals:: ID's personal stressors & 2 strategies to manage stress by discharge and Other Additional outcome/goals: Psychosocial - 90-Day Assess Target Goals Target Goals Psychosocial - Final Assessmen Target Goals Target Goals Nutrition - 90-Day Assessment Weight Mgt (Other Care) Height: 5 ft 5 in Weight:: 181 lb BMI: 30.1 Nutrition - Final Assessment Weight Mgt (Other Care) Height: 5 ft 5 in Weight:: 181 lb BMI: 30.1
[2023-04-22 09:04] VITALS: BP 118/58; BMI 30.1
== END 2023-05-05 23:59 ==
LOC: CR 14:15
PROVIDERS: PCP Family Medicine; Referring Provider Internal Medicine Cardiovascular Disease; Visit Provider Internal Medicine Cardiovascular Disease
DX: Z95.5 Presence of coronary angioplasty implant and graft (principal); I21.3 ST elevation (STEMI) myocardial infarction of unspecified site
CPT/HCPCS: 93798

== ENCOUNTER 2023-06-03 14:15 | Outpatient (RCR) | payer MEDICARE, SELFPAY ==
[2023-04-22 09:04] VITALS: BMI 30.1
[2023-05-06 00:30] VITALS: BP 118/58
--- NOTE | 2023-05-20 08:23 | CR.ITP_ITS ---
Nutrition - Initial Assessment Weight Mgt (Other Care) Height: 5 ft 5 in Weight:: 181 lb 8 oz BMI: 30.2 Psychosocial - Initial Assess Target Goals Target Goals Patient Health Questionnaire PHQ-9 Screening 60-Day Re-eval Assessment: 1. Little interest or pleasure in doing things: Several days 2. Feeling down, depressed, or hopeless: Not at all 3. Trouble falling or staying asleep, or sleeping too much: Several days 4. Feeling tired or having little energy: Nearly every day 5. Poor appetite or overeating: Not at all 6. Feeling bad about yourself -- or that you are a failure or have let yourself or your family down: Not at all 7. Trouble concentrating on things, such as reading the newspaper or watching television: More than half the days 8. Moving or speaking so slowly that other people could have noticed. Or the opposite - being so fidgety or restless that you have been moving around a lot more than usual: Not at all 9. Thoughts that you would be better off , or of hurting yourself in some way: Not at all How difficult have these problems made it for you to do your work, take care of things at home, or get along with other people?: Somewhat difficult Total Score: 7 Self-Efficacy 6-Item Scale 60-Day Re-eval Assessment: We would like to know how confident you are in doing certain activities. Please select your confidence level for: Fatigue Select Number: 3 Physical Discomfort or Pain Select Number: 9 Emotional Distress Select Number: 3 Other Symptoms or Health Problems Select Number: 3 Different Tasks and Activities Select Number: 2 Medication Select Number: 2 Total Score:: 3 Nutrition Survey Nutrition Survey Instructions Scoring Instructions Exercise - 60-day Assessment Visit Date of Eval: 05/20/23 Session #:: 23 Physician Prescribed Exercise Modalities: Treadmill, Airdyne and NuStep Frequency: 3x/week for 12 weeks [36 sessions] Intensity: 60-80% of age predicted maximum heart rate reserve Duration: 30 - 45 minutes Current METSs:: 3.5 Target Heart Rate:: 90-105 Current RPE:: 12-13 Maximum Excercise HR:: 94 Resting Blood Pressure: 126/50 Maximum Exercise Blood Pressure: 134/60 EKG Type: NSR with BBB with T wave inversion with rare pvc,pac Outcomes & Goals Goals:: Verbalizes understanding of THR, RPE & goal METS by session 6, Documents in home exercise log/reports 30 min aerobic 5 day/wk by DC, Demonstrates accurate pulse taking by DC and Other additional outcome/goals: see below Intervention & Plan Exercise Program Goals: Instruct on personal THR & RPE, Instruct on MET level & personal MET goal, Show patient to take own pulse /validate performance until accurate, Instruct on home exercise and Other additional plan/int 30-day Reassessments 30 day Reassessments:: Progressing Reassessment Notes & Comments:: RPE explained Physical Activity Home Exercise Physical Activity - Home Exercise: Safe Exercise, Warm-up, Self-monitoring, Cool-Down, Home Exercise > 30 min Daily and Sitting Time <3 hours/daily Outcomes & Goals Outcomes/Goals: Demonstrates correct Warm-up/exercise Cool-Down (S3) if = 2.5 METs, Verbalizes symptoms of exercise intolerance by Session 3 (S3), Demonstrate safe equipment use (S3) & follows exercise prescrition (6) and Other: See below Intervention & Plan Plan/Intervention: Instruct warm-up & cool-down if exercising at > 2 METs, Instruct on symptoms of exercise intolerance & actions to take, Instruct & monitor on saf, Assess intial functional capacity & safety risk and Other See be low 30-day Reassessments 30 day Reassessments:: Progressing Reassessment Notes & Comments:: cool down encouraged Nutrition - 30-Day Assessment Weight Mgt (Other Care) Height: 5 ft 5 in Weight:: 181 lb 8 oz BMI: 30.2 Nutrition - 60-Day Assessment Program Goals Nutrition Program Goals Patient has diagnosis of Hyperlipidemia (ICD E78)?: Yes Visit Date of Eval: 05/20/23 Session #:: 23 Cholesterol/Lipids (Other Core Measures) Determine presence & major risk factors that modify LDL goal: Hypertension or hypertensive medication, Low HDL cholesterol <40 mg/dL*, Family history of pr emature CHD in Male < 55 years: female <65 yearsFa and Age men > 45 years; women >/= 55 years Outcomes/Goals: Pt IDs own risk factors & lifestyle modifications by Session 10, Verbalizes symptoms of angina & response by session 3., Pt independently manages and Other Additional Outcomes/Goals: Intervention/Plan: Advocate for lipid panel cholesterol medication if applicable, Instruct on personal lipid levels & lipid goals/NCEP guidelines, Instruct on cholesterol and Other additional plan/int 30-day Reassessments:: Progressing Reassessment Notes & Comments:: pt to attend nutrition class Diabetes (Other Core Measures) Diabetes Type: Diagnosis Type II ICD-10 E11 Insulin dependent injection/pump?: Yes Do you monitor your blood sugar at home?: Yes Referral to Diabetic Clinic:: No (declines) Outcomes/Goals:: Able to state symptoms of, Able to state, Able to state and Other additional Intervention/Plan:: Instruct on, Refer to, Instruct on and Other 30-day Reassessments:: Met Weight Mgt (Other Care) Height: 5 ft 5 in Weight:: 181 lb 8 oz BMI: 30.2 Diagnosis Overweight/Obesity BMI> 30% ICD-10 E66: Yes Diagnosis High BMI/Morbid Obesity BMI> 35% ICD-10 Z68: No Outcomes/Goals: Pt sets, maintains & shows weight loss goal & trend during rehab and Other additional outcomes/goals Intervention/Plan: Instruct on ideal BMI & set weight loss goal w/patient, Assist pt to ID & incorporate diet changes for weight loss by S9, Refer to Structured Weight Loss program as appropriate, Encourage goal of using 250- 300dcal per session for weight loss and Other additional plan/interventions 30 day Reassessments:: Progressing Reassessment Notes & Comments:: pt to attend nutrition class Healthy Eating Habits Will attend diet classes:: Yes Outcomes/Goals:: Consume diet rich in vegs,fruits,whole grain/high fiber,fish,lean meat, Limit sat/trans fats,cholesterol & added salts & sugars and Other additional outcome/goals: Intervention/Plan:: Assess current eating habits and Other Additional plan/interventions 30-day Reassessments:: Progressing Reassessment Notes & Comments:: pt to attend nutrition class Education Gave educational materials for:: Signs & symptoms of hypoglycemia, Signs & symptoms of hyperglycemia, Relate diabetes to coronary artery disease and Healthy eating Core - 60-Day Assessment Visit Date of Eval: 05/20/23 Session #:: 23 Medication Compliance Preventative Medication(s):: Aspirin, Clopidogrel/P2Y12 inhibit, Statin/lipid and Beta richie H/O mental health issues: depression, anxiety, or addiction?: Yes Doesn?t believe in the benefits of treatment?: No Believes medications are unnecessary or harmful?: No Has a concern about medication side effects?: No Expresses concern over the cost of medications?: No Outcomes/Goals: Verbalizes medications,desired effect & common side effects @ DC, Pt self-reports following medication regimen, Keeps card in wallet w/medications listed by DC and Other additional outcome/goals: Interventions/plans: Instruct on medication effects & side effects, Review medication list w/patient every two weeks, Instruct importance of taking meds as ordered & assist problem solving and Other additional 30-day Reassessments:: Met Tobacco Use Tobacco Use: Non-smoker Hypertension Hypertension Diagnosis:: Hypertension ICD-10 I10 Resting Blood Pressure:: 126/50 [place] [employer] Hypertension Guidelines Peak Exercise Blood Pressure:: 134/60 Outcomes/Goals: Able to verbalize/achieve optimal blood pressure <130/80, Incorporates diet changes & exercise for blood pressure control by DC and Other additional outcomes/goals Interventions/plan: Instruct on optimal blood pressure, hypertension & medications, Instruct on effects of sodium, alcohol, stress, exercise &hypertension and Other additional plan/interventions 30 day Reassessments:: Met Tobacco Cessation Referral Smoking Cessation Referral:: No Individual Education/Counseling:: No Education Schedule Given:: Yes Psychosocial - 30-Day Assess Target Goals Target Goals Outcomes/Goals: See list Psychosocial Outcomes/Goals:: ID's personal stressors & 2 strategies to manage stress by discharge and Other Additional outcome/goals: Psychosocial - 60-Day Assess VIsit Date of Eval: 05/20/23 Session #:: 23 History of previous Mental disease:: Yes History of Emotional Disorders: Depression (pt is on meds) Target Goals Target Goals Outcomes/Goals: See list Psychosocial Outcomes/Goals:: ID's personal stressors & 2 strategies to manage stress by discharge and Other Additional outcome/goals: Intervention/Plan: See List Interventions/Plan:: Assess stressors,coping strategies & signs of derpression on admission, Instruct/assist pt to develop coping & personal stress Mgt strategies, Refer to Behavioral Health if appropriate, Refer to Physician if appropriate, Instruct patient to recognize signs & symptoms of depression, Instruct patient to recog and Other additional plan/intervention 30-day Reassessments: 30 day Reassessments:: Met Psychosocial - 90-Day Assess Target Goals Target Goals Psychosocial - Final Assessmen Target Goals Target Goals Nutrition - 90-Day Assessment Weight Mgt (Other Care) Height: 5 ft 5 in Weight:: 181 lb 8 oz BMI: 30.2 Nutrition - Final Assessment Weight Mgt (Other Care) Height: 5 ft 5 in Weight:: 181 lb 8 oz BMI: 30.2
[2023-05-20 08:36] VITALS: BP 126/50; BMI 30.2
== END 2023-06-05 23:59 ==
LOC: CR 14:15
PROVIDERS: PCP Family Medicine; Referring Provider Internal Medicine Cardiovascular Disease; Visit Provider Internal Medicine Cardiovascular Disease
DX: Z95.5 Presence of coronary angioplasty implant and graft (principal); I21.3 ST elevation (STEMI) myocardial infarction of unspecified site
CPT/HCPCS: 93798

== ENCOUNTER 2023-06-17 14:15 | Outpatient (RCR) | payer MEDICARE, SELFPAY ==
[2023-05-20 08:36] VITALS: BMI 30.2
[2023-06-06 00:24] VITALS: BP 118/58; BP 126/50
== END 2023-07-05 23:59 ==
LOC: CR 14:15
PROVIDERS: PCP Family Medicine; Referring Provider Internal Medicine Cardiovascular Disease; Visit Provider Internal Medicine Cardiovascular Disease
DX: Z95.5 Presence of coronary angioplasty implant and graft (principal); I21.3 ST elevation (STEMI) myocardial infarction of unspecified site
CPT/HCPCS: 93798

== ENCOUNTER → 2023-07-05 | Outpatient (CLI) | payer MEDICARE, SELFPAY ==
[2023-03-22 09:52] VITALS: BMI 30.2
[2023-04-22 09:04] VITALS: BMI 30.1
[2023-05-20 08:36] VITALS: BMI 30.2
--- NOTE | 2023-07-05 08:36 | ECHOL_ITS ---
Reason For Study: CHF Procedure This was a limited 2D transthoracic echocardiogram. Exam performed in department. Left Ventricle Normal LV size. Mild concentric left ventricular hypertrophy. The left ventricular ejection fraction is 55 %. Right Ventricle Normal right ventricle. Atria The left and right atria are normal. Mitral Valve Moderate (2+) mitral valve insufficiency. Tricuspid Valve Trivial tricuspid valve insufficiency. Normal pulmonary artery pressure. Aortic Valve Trisinus/trileaflet aortic valve. Pulmonic Valve The pulmonic valve is not well visualized. Great Vessels The aortic root is not well visualized. Pericardium/Pleural No pericardial effusion. MMode/2D Measurements & Calculations LVIDd: 5.1 cm IVSd: 1.4 cm LAV(MOD-bp): 55.1 ml LVIDs: 3.5 cm LVPWd: 0.89 cm LAV(MOD-bp) Indexed: 29.1 ml/m2 FS: 31.9 % LAV(MOD-sp2): 52.0 ml LAV(MOD-sp4): 48.7 ml SV(MOD-sp4): 40.3 ml SV(sp4-el): 44.6 ml LVAd ap4: 27.2 cm2 LVLd ap4: 7.6 cm EDV(MOD-sp4): 79.8 ml EDV(sp4-el): 83.0 ml LVAs ap4: 17.9 cm2 LVLs ap4: 7.0 cm ESV(MOD-sp4): 39.4 ml ESV(sp4-el): 38.4 ml EF(MOD-sp4): 50.6 % EF(sp4-el): 53.7 % LA A4 area: 16.7 cm2 RA A4 area: 13.8 cm2 Doppler Measurements & Calculations MR max sherine: 550.9 cm/sec TR max sherine: 243.1 cm/sec MR max P.4 mmHg TR max P.6 mmHg ECHO/Echo, Limited Study Interpretation Summary Mild concentric left ventricular hypertrophy. The left ventricular ejection fraction is 55 %. Inferior septal and inferior hy pokinesis. Moderate (2+) mitral valve insufficiency. Ordering Physician: Josh Greene Referring Physician: Josh Greene Performed By: Bhavin Casas, [facility]
[2023-07-05 10:43] LABS: ALB/GLOB Ratio 0.9 RATIO (0.9-2.4); AST(SGOT) 23 U/L (15-37); Alanine Aminotransfer ALT/SGPT 33 U/L (13-56); Albumin, Serum 3.4 g/dL (3.2-5.0); Alkaline Phosphatase 116 U/L (45-117); Anion Gap 6 (5-15); BUN 16 mg/dL (7-18); BUN/Creat Ratio 16.3 RATIO (10-20); Calcium,Total 8.5 mg/dL (8.5-10.1); Chloride 106 mmol/L (98-107); Cholesterol 159 mg/dL (200); Creatinine, Serum 0.98 mg/dL (0.55-1.02); EST Glomerular Filtration Rate 60 mL/min (>60); Est Glom Filt Rate - Afr Amer 72 mL/min (>60); Globulin 3.6 g/dL (2.2-4.2); Glucose 147 mg/dL (74-106); High Density Lipoprotein 50 mg/dL; Potassium 3.7 mmol/L (3.5-5.1); Sodium Level 139 mmol/L (136-145); Triglycerides 215 mg/dL; Very Low Density Lipoprotein 43 mg/dL (5-40)
== END | disposition home or self-care (01) ==
PROVIDERS: Internal Medicine Cardiovascular Disease; PCP Family Medicine; Referring Provider Nurse Practitioner Family; Visit Provider Nurse Practitioner Family
DX: I10 Essential (primary) hypertension (principal); I25.5 Ischemic cardiomyopathy; E78.5 Hyperlipidemia, unspecified; Z95.5 Presence of coronary angioplasty implant and graft
CPT/HCPCS: 36415; 80053; 80061; 93308

== ENCOUNTER → 2023-10-12 | Outpatient (CLI) | payer MEDICARE, SELFPAY ==
[2023-05-20 08:36] VITALS: BMI 30.2
[2023-10-12 16:04] LABS: AST(SGOT) 20 U/L (15-37); Alanine Aminotransfer ALT/SGPT 31 U/L (13-56); Albumin, Serum 3.5 g/dL (3.2-5.0); Alkaline Phosphatase 124 U/L (45-117); Anion Gap 9 (5-15); BUN 23 mg/dL (7-18); Calcium,Total 8.6 mg/dL (8.5-10.1); Chloride 106 mmol/L (98-107); Creatinine, Serum 1.35 mg/dL (0.55-1.02); EST Glomerular Filtration Rate 41 mL/min (>60); Est Glom Filt Rate - Afr Amer 50 mL/min (>60); Globulin 3.6 g/dL (2.2-4.2); Glucose 128 mg/dL (74-106); Potassium 4.3 mmol/L (3.5-5.1); Protein, Total 7.1 g/dL (6.4-8.2); Sodium Level 136 mmol/L (136-145); Thyroid Stim Hormone (TSH) 1.17 uIU/mL (0.358-3.74)
[2023-10-12 16:20] LABS: Absolute Lymphocyte Count 1.46 X10^3/uL (0.83-4.51); Absolute Neutrophil Count 6.4 X10^3/uL (2.0-7.7); Basophil# 0.04 X10^3/uL; Basophil% 0.5 % (0-1); Eosinophil# 0.09 X10^3/uL; Hematocrit 33.2 % (37-47); Hemoglobin 10.6 g/dL (12.0-15.0); Lymphocyte # 1.46 X10^3/ul (0.83-4.51); Lymphocyte % 16.9 % (19-41); Mean Corp Hgb Conc 31.9 g/dL (32-36); Mean Corpuscular Hgb 29.6 pg (27.0-32.0); Mean Corpuscular Volume 92.7 fL (81-99); Mean Platelet Vol. 10.6 fl (6.2-12.0); Monocyte# 0.63 X10^3/uL; Monocyte% 7.3 % (0-10); NRBC Flagged by Analyzer 0 % (0-5); Platelet Count 288 K/mm3 (150-450); RBC Distribution Width CV 13.6 % (11.6-14.6); RBC Distribution Width SD 46.7 fl (35.1-43.9); Red Blood Count 3.58 M/mm3 (4.2-5.4); White Blood Count 8.7 K/mm3 (4.4-11.0)
[2023-10-12 16:28] LABS: Erythrocyte Sedimentation Rate 11 mm/hr (0-30)
== END | disposition home or self-care (01) ==
LOC: MFPLAB 11:43
PROVIDERS: PCP Family Medicine; Visit Provider Family Medicine
DX: R19.7 Diarrhea, unspecified (principal); E11.65 Type 2 diabetes mellitus with hyperglycemia
CPT/HCPCS: 36415; 80053; 84443; 85025; 85652

== ENCOUNTER → 2023-12-09 | Outpatient (CLI) | payer MEDICARE, SELFPAY ==
[2023-05-20 08:36] VITALS: BMI 30.2
[2023-12-09 10:59] LABS: AST(SGOT) 13 U/L (15-37); Alanine Aminotransfer ALT/SGPT 22 U/L (13-56); Albumin, Serum 3.6 g/dL (3.2-5.0); Alkaline Phosphatase 125 U/L (45-117); Anion Gap 6 (5-15); BUN 20 mg/dL (7-18); BUN/Creat Ratio 17.7 RATIO (10-20); CPK Total, Creatine Kinase 73 U/L (26-192); Calcium,Total 9.3 mg/dL (8.5-10.1); Chloride 106 mmol/L (98-107); Cholesterol 177 mg/dL (200); Creatinine, Serum 1.13 mg/dL (0.55-1.02); EST Glomerular Filtration Rate 50 mL/min (>60); Est Glom Filt Rate - Afr Amer 61 mL/min (>60); Globulin 3.6 g/dL (2.2-4.2); Glucose 177 mg/dL (74-106); High Density Lipoprotein 55 mg/dL; Potassium 3.7 mmol/L (3.5-5.1); Protein, Total 7.2 g/dL (6.4-8.2); Sodium Level 139 mmol/L (136-145); Triglycerides 268 mg/dL; Very Low Density Lipoprotein 54 mg/dL (5-40)
== END | disposition home or self-care (01) ==
LOC: LAB 09:27
PROVIDERS: PCP Family Medicine; Referring Provider Internal Medicine Cardiovascular Disease; Visit Provider Internal Medicine Cardiovascular Disease
DX: D64.9 Anemia, unspecified (principal); I25.10 Atherosclerotic heart disease of native coronary artery without angina pectoris; E78.2 Mixed hyperlipidemia; I10 Essential (primary) hypertension; Z95.5 Presence of coronary angioplasty implant and graft
CPT/HCPCS: 36415; 80053; 80061; 82550

== ENCOUNTER 2024-01-02 17:30 | Outpatient (RCR) | payer SELFPAY ==
[2023-05-20 08:36] VITALS: BMI 30.2
== END 2024-01-05 23:59 ==
LOC: NS 17:30
PROVIDERS: PCP Family Medicine
DX: Z71.3 Dietary counseling and surveillance (principal)

== ENCOUNTER → 2024-01-26 | Outpatient (CLI) | payer MEDICARE, SELFPAY ==
[2023-05-20 08:36] VITALS: BMI 30.2
--- NOTE | 2024-01-26 10:39 | BI_ITS ---
MAMMOGRAPHY - UNILATERAL SCREENING: LEFT BREAST REASON FOR EXAM: Female, 73 years old. Routine annual screening examination (unilateral). PERTINENT HISTORY: Personal history of breast cancer. Prior right mastectomy with radiation and chemotherapy. Mother with breast cancer. TECHNIQUE: Digital unilateral breast hilary (3D mammographic acquisition) in the CC and MLO projections. 2-D mediolateral oblique (MLO) and craniocaudad (CC) views of both breasts were obtained. CAD: Full Field Digital Mammography with Computer Added Detection was performed. COMPARISON: Comparison is made with prior study January 24, 2023 and January 22, 2022. FINDINGS: Breast Composition: The breasts are heterogeneously dense, which may obscure small masses. There are no dominant masses or suspicious calcifications. No other significant abnormalities are identified. There has been no significant change since the prior study. BI/SCREEN MAMM (CAD) W/HILARY UNI L IMPRESSION: Stable unilateral screening mammogram. Yearly follow-up mammogram recommended. (A) ASSESSMENT CATEGORY: BIRADS Category 1: Negative. A letter regarding these results will be sent to the patient by the facility within 30 days. Approximately 10% of breast cancers are not detected by mammography. A normal mammogram should not delay biopsy of a clinically suspicious abnormality. [id number] Electronically Signed: Doug Kennedy MD at 11:26 EST ,
== END | disposition home or self-care (01) ==
LOC: OPBI 10:39
PROVIDERS: PCP Family Medicine; Referring Provider Internal Medicine Medical Oncology; Visit Provider Internal Medicine Medical Oncology
DX: Z12.31 Encounter for screening mammogram for malignant neoplasm of breast (principal)
CPT/HCPCS: 77063; 77067

== ENCOUNTER → 2024-02-09 | Outpatient (CLI) | payer MEDICARE, SELFPAY ==
[2023-05-20 08:36] VITALS: BMI 30.2
[2024-02-09 10:45] LABS: Absolute Lymphocyte Count 1.48 X10^3/uL (0.83-4.51); Absolute Neutrophil Count 5.8 X10^3/uL (2.0-7.7); Basophil# 0.06 X10^3/uL; Basophil% 0.7 % (0-1); Eosinophil# 0.13 X10^3/uL; Eosinophils% 1.6 % (0-5); Hematocrit 34.3 % (37-47); Lymphocyte # 1.48 X10^3/ul (0.83-4.51); Mean Corp Hgb Conc 32.1 g/dL (32-36); Mean Corpuscular Hgb 29.6 pg (27.0-32.0); Mean Corpuscular Volume 92.5 fL (81-99); Mean Platelet Vol. 10.2 fl (6.2-12.0); Monocyte# 0.77 X10^3/uL; Monocyte% 9.3 % (0-10); NRBC Flagged by Analyzer 0 % (0-5); Neutrophil # 5.77 X10^3/uL (2.7-7.7); Platelet Count 300 K/mm3 (150-450); RBC Distribution Width CV 13.3 % (11.6-14.6); RBC Distribution Width SD 45.5 fl (35.1-43.9); Red Blood Count 3.71 M/mm3 (4.2-5.4); White Blood Count 8.2 K/mm3 (4.4-11.0)
[2024-02-09 11:14] LABS: AST(SGOT) 23 U/L (15-37); Alanine Aminotransfer ALT/SGPT 41 U/L (13-56); Albumin, Serum 3.6 g/dL (3.2-5.0); Alkaline Phosphatase 124 U/L (45-117); Anion Gap 6 (5-15); BUN 21 mg/dL (7-18); BUN/Creat Ratio 17.1 RATIO (10-20); Calcium,Total 8.9 mg/dL (8.5-10.1); Chloride 107 mmol/L (98-107); Creatinine, Serum 1.23 mg/dL (0.55-1.02); EST Glomerular Filtration Rate 46 mL/min (>60); Est Glom Filt Rate - Afr Amer 55 mL/min (>60); Globulin 3.6 g/dL (2.2-4.2); Glucose 177 mg/dL (74-106); LDH 169 U/L (84-246); Potassium 4.3 mmol/L (3.5-5.1); Protein, Total 7.2 g/dL (6.4-8.2); Sodium Level 139 mmol/L (136-145)
[2024-02-09 13:05] LABS: Erythrocyte Sedimentation Rate 7 mm/hr (0-30)
[2024-02-09 13:07] LABS: Platelet Count 299 K/mm3 (150-450); RET-HE 32.7 pg (30-35); Reticulocyte Count 1.51 % (0.5-1.5)
[2024-02-09 13:24] LABS: CRP < 2.90 mg/L (0.0-3.0); Ferritin 10 ng/mL (8-252); Iron 52 ug/dL (50-170); Iron Binding Capacity,Total 377 ug/dL (250-450); Magnesium 1.7 mg/dL (1.6-2.6); PERCENT IRON SATURATION 13.8 % (15.0-55.0); Phosphorus 4.5 mg/dL (2.5-4.9)
== END | disposition home or self-care (01) ==
LOC: LAB 10:12
PROVIDERS: PCP Family Medicine; Referring Provider Internal Medicine Medical Oncology; Visit Provider Internal Medicine Medical Oncology
DX: D64.9 Anemia, unspecified (principal); Z85.3 Personal history of malignant neoplasm of breast
CPT/HCPCS: 36415; 80053; 82728; 83540; 83550; 83615; 83735; 84100; 85025; 85045; 85652; 86140

== ENCOUNTER → 2024-02-13 | Outpatient (CLI) | payer MEDICARE, SELFPAY ==
[2023-05-20 08:36] VITALS: BMI 30.2
== END | disposition home or self-care (01) ==
PROVIDERS: PCP Family Medicine; Referring Provider Internal Medicine Medical Oncology; Visit Provider Internal Medicine Medical Oncology
DX: D64.9 Anemia, unspecified (principal)
CPT/HCPCS: 82274

== ENCOUNTER → 2024-02-15 | Outpatient (CLI) | payer MEDICARE, SELFPAY ==
[2023-05-20 08:36] VITALS: BMI 30.2
--- NOTE | 2024-02-15 16:12 | STRESSREP_ITS ---
Stress Test Report Pharmacologic myocardial perfusion stress test. 73-year-old lady with a history of coronary disease ischemic cardiomyopathy Resting EKG demonstrates sinus rhythm with a left bundle branch block with a rate of 71 bpm. Resting blood pressure is 106/66 mmHg. 0.4 mg of regadenoson was infused per usual protocol followed by rapid intravenous saline flush injection. Continuous EKG monitoring was performed. The maximum heart rate was 98 bpm which was 65% of max impacted heart rate the maximum workload was 1 metabolic equivalent. At rest there were no ST or T wave changes noted to suggest ischemia and at peak infusion nonspecific ST changes were noted which did not meet the criteria for ischemia. No clinical angina is noted. The fi nal blood pressure was 160/70 mmHg. Myocardial perfusion protocol. 12 point mCi of technetium 99m sestamibi was injected at rest. 0.4 mg of regadenoson was infused per usual protocol. At peak infusion 34.9 mCi of technetium 99m sestamibi was injected stress images were obtained stress and rest images were reconstructed and compared in the short axis vertical long and horizontal long axis. Gated images were also obtained. Perfusion SPECT analysis: Review of the stress images demonstrate normal uptake of tracer noted in all areas of the myocardium with a defect noted in the basal to mid inferior wall as well as the anterior apical wall.. The resting images similar demonstrated no significant improvement in the above distribution suggesting a previous inferior and distal anterior infarct. Minimal favio-infarct ischemia cannot be excluded Gated SPECT analysis: The gated ejection fraction is 62%. Conclusion: pharmacologic myocardial perfusion stress test with previous anterior and inferior infarct and no significant ischemia present. Preserved ejection fraction.
== END | disposition home or self-care (01) ==
LOC: CVS 06:48
PROVIDERS: PCP Family Medicine; Referring Provider Family Medicine; Visit Provider Family Medicine
DX: R06.00 Dyspnea, unspecified (principal)
CPT/HCPCS: 78452; 93017; A9500; A4216; J2785

== ENCOUNTER → 2024-06-11 | Outpatient (CLI) | payer MEDICARE, SELFPAY ==
[2023-05-20 08:36] VITALS: BMI 30.2
[2024-06-11 11:05] LABS: ALB/GLOB Ratio 1.4 RATIO (0.9-2.4); AST(SGOT) 20 U/L (<=31); Alanine Aminotransfer ALT/SGPT 19 U/L (<=34); Albumin, Serum 4.1 g/dL (3.4-4.8); Alkaline Phosphatase 118 U/L (35-104); Anion Gap 13 (5-15); BUN 16 mg/dL (4-19); BUN/Creat Ratio 18.8 RATIO (10-20); Calcium,Total 9.2 mg/dL (7.6-11.0); Carbon Dioxide 22.4 mmol/L (21.0-32.0); Chloride 104 mmol/L (98-108); Cholesterol 155 mg/dL (<=200); Creatinine, Serum 0.84 mg/dL (0.70-1.20); EST Glomerular Filtration Rate 74 (>60); Globulin 2.9 g/dL (2.2-4.2); Glucose 121 mg/dL (70-99); High Density Lipoprotein 53 mg/dL; Low Density Lipoprotein Calc. 72 mg/dL; Protein, Total 6.9 g/dL (5.9-8.4); Sodium Level 139 mmol/L (133-145); Total Bilirubin 0.47 mg/dL (0.00-1.30); Triglycerides 154 mg/dL; Very Low Density Lipoprotein 31 mg/dL (5-40); cholesterol:hdl ratio screen 2.95
== END | disposition home or self-care (01) ==
LOC: LAB 10:08
PROVIDERS: PCP Family Medicine; Referring Provider Internal Medicine Cardiovascular Disease; Visit Provider Internal Medicine Cardiovascular Disease
DX: E78.5 Hyperlipidemia, unspecified (principal); E11.9 Type 2 diabetes mellitus without complications; I10 Essential (primary) hypertension
CPT/HCPCS: 36415; 80053; 80061

== ENCOUNTER → 2024-06-29 | Outpatient (CLI) | payer MEDICARE, SELFPAY ==
[2023-05-20 08:36] VITALS: BMI 30.2
--- NOTE | 2024-06-29 12:39 | ECHOD_ITS ---
Reason For Study Reason For Study: CAD/ASHD Procedure This was a 2D Doppler, Color Flow transthoracic echocardiogram. Myocardial strain analysis was performed in this exam to aid in the assessment of cardiac function. Exam performed in department. Left Ventricle Mildly dilated left ventricular cavity. Mild LV concentric hypertrophy. Severe LV systolic dysfunction. Generalized hypokinesis. Estimated LVEF 35%. Stage II diastolic dysfunction with elevated left atrial pressures. Right Ventricle Normal right ventricle. Atria The left atrium is moderately enlarged. Normal right atrium. Mitral Valve Moderately severe (3+) mitral valve insufficiency. Tricuspid Valve Mild tricuspid valve insufficiency. Right ventricular systolic pressure estimated to be 39 mmHg. Aortic Valve Trisinus/trileaflet aortic valve. Pulmonic Valve The pulmonic valve is not well visualized. Great Vessels Normal sized aortic root. Pericardium/Pleural No pericardial effusion. MMode/2D Measurements & Calculations LVIDd: 5.7 cm IVSd: 1.2 cm LVOT diam: 2.0 cm LVIDs: 5.2 cm LVPWd: 1.3 cm LVOT area: 3.2 cm2 RVDd: 3.2 cm FS: 8.2 % Ao root diam: 2.8 cm LAV(MOD-bp): 66.3 ml LVAd ap4: 32.7 cm2 LAV(MOD-bp) Indexed: 36.6 ml/m2 LVLd ap4: 8.6 cm LAV(MOD-sp2): 63.6 ml EDV(MOD-sp4): 104.9 ml LAV(MOD-sp4): 64.0 ml EDV(sp4-el): 105.6 ml LVAs ap4: 24.1 cm2 LVLs ap4: 7.6 cm ESV(MOD-sp4): 65.4 ml ESV(sp4-el): 64.9 ml EF(MOD-sp4): 37.6 % EF(sp4-el): 38.5 % SV(MOD-sp4): 39.5 ml SV(sp4-el): 40.7 ml LA A4 area: 20.0 cm2 SI(MOD-sp4): 21.8 ml/m2 LA dimension(2D): 4.3 cm RA A4 area: 9.1 cm2 Time Measurements MV dec time: 0.17 sec Doppler Measurements & Calculations MV E max reggie: 102.0 cm/sec Lat Peak E' Reggie: 4.8 cm/sec Med Peak E' Reggie: 5.1 cm/sec MV A max reggie: 111.6 cm/sec E/E' lat: 21.1 E/E' med: 20.2 MV E/A: 0.91 MV V2 max: 128.2 cm/sec Ao V2 max: 148.0 cm/sec MV max P.6 mmHg MV dec slope: 602.8 cm/sec2 Ao max P.8 mmHg MV V2 mean: 90.1 cm/sec Ao V2 mean: 102.3 cm/sec MV mean P.5 mmHg Ao mean P.8 mmHg MV V2 VTI: 42.0 cm Ao V2 VTI: 31.9 cm AV (velocity ratio): 0.98 MVA(VTI): 2.4 cm2 TYRON(I,D): 3.1 cm2 TYRON(V,D): 3.1 cm2 LV V1 max: 145.3 cm/sec SV(LVOT): 99.3 ml PA V2 max: 86.5 cm/sec LV V1 max P.4 mmHg PA V2 mean: 62.3 cm/sec LV V1 mean P.7 mmHg LV V1 mean: 100.3 cm/sec LV V1 VTI: 31.2 cm TR max reggie: 292.3 cm/sec TR max P.2 mmHg ECHO/Echo Complete Interpretation Summary Mildly dilated left ventricular cavity. Mild LV concentric hypertrophy. Severe LV systolic dysfunction. Generalized hypokinesis. Estimated LVEF 35%. St age II diastolic dysfunction with elevated left atrial pressures. The left atrium is moderately enlarged. Moderately severe (3+) mitral valve insufficiency. Mild tricuspid valve insufficiency. Right ventricular systolic pressure estimated to be 39 mmHg. Ordering Physician: Radha Hammonds Referring Physician: Radha Hammonds Performed By: Deepthi Morales RCS
== END | disposition home or self-care (01) ==
LOC: CVS 12:36
PROVIDERS: PCP Family Medicine; Referring Provider Internal Medicine Cardiovascular Disease; Visit Provider Internal Medicine Cardiovascular Disease
DX: I25.10 Atherosclerotic heart disease of native coronary artery without angina pectoris (principal)
CPT/HCPCS: 93306

== ENCOUNTER → 2024-07-10 | Outpatient (CLI) | payer MEDICARE, SELFPAY ==
[2023-05-20 08:36] VITALS: BMI 30.2
[2024-07-10 15:33] LABS: Absolute Lymphocyte Count 1.41 X10^3/uL (0.83-4.51); Absolute Neutrophil Count 7.1 X10^3/uL (2.0-7.7); Basophil# 0.03 X10^3/uL; Basophil% 0.3 % (0-1); Eosinophil# 0.08 X10^3/uL; Eosinophils% 0.9 % (0-5); Hematocrit 33.2 % (37-47); Hemoglobin 10.8 g/dL (12.0-15.0); Lymphocyte # 1.41 X10^3/ul (0.83-4.51); Lymphocyte % 15.1 % (19-41); Mean Corp Hgb Conc 32.5 g/dL (32-36); Mean Corpuscular Hgb 29.7 pg (27.0-32.0); Mean Corpuscular Volume 91.2 fL (81-99); Monocyte# 0.65 X10^3/uL; NRBC Flagged by Analyzer 0 % (0-5); Neutrophil % 76.3 % (47-70); Platelet Count 307 K/mm3 (150-450); RBC Distribution Width CV 13.9 % (11.6-14.6); RBC Distribution Width SD 46.5 fl (35.1-43.9); Red Blood Count 3.64 M/mm3 (4.2-5.4); White Blood Count 9.3 K/mm3 (4.4-11.0)
[2024-07-10 16:15] LABS: Anion Gap 15 (5-15); BUN 22 mg/dL (4-19); BUN/Creat Ratio 23.2 RATIO (10-20); Calcium,Total 9.2 mg/dL (7.6-11.0); Carbon Dioxide 18.9 mmol/L (21.0-32.0); Chloride 104 mmol/L (98-108); Creatinine, Serum 0.96 mg/dL (0.70-1.20); EST Glomerular Filtration Rate 63 (>60); Ferritin 18 ng/mL (22-378); Glucose 154 mg/dL (70-99); Iron 42 ug/dL (50-170); Potassium 4.4 mmol/L (3.3-5.1); Sodium Level 137 mmol/L (133-145); Vitamin D,25 Hydroxy 51.5 ng/mL (30-100)
== END | disposition home or self-care (01) ==
LOC: MFPLAB 11:45
PROVIDERS: PCP Family Medicine; Referring Provider Family Medicine; Visit Provider Family Medicine
DX: D64.9 Anemia, unspecified (principal); E11.65 Type 2 diabetes mellitus with hyperglycemia; E11.22 Type 2 diabetes mellitus with diabetic chronic kidney disease; N18.9 Chronic kidney disease, unspecified
CPT/HCPCS: 36415; 80048; 82306; 82728; 83540; 85025

== ENCOUNTER → 2024-08-20 | Outpatient (CLI) | payer MEDICARE, SELFPAY ==
[2023-05-20 08:36] VITALS: BMI 30.2
--- NOTE | 2024-08-20 12:57 | CT_ITS ---
PROCEDURE: EXTREMITY UPPER WITHOUT CONTRA 08/20/2024 REASON FOR EXAM: PAIN IN RIGHT SHOULDER TECHNIQUE: EXTREMITY UPPER WITHOUT CONTRA Coronal and Sagittal reconstruction series were provided. One or more dose reduction techniques were used (e.g., Automated exposure control, adjustment of the mA and/or kV according to patient size, use of iterative reconstruction technique RADIATION DOSE SUMMARY: DLP: 631.07 mGycm COMPARISON: None FINDINGS: There is severe osteoarthritis at the glenohumeral articulation with flattening of the articular surfaces, subcortical cyst formation, and marginal osteophytes. There are multiple corticated osteochondral fragments in the axillary recess with the largest measuring 1.5 cm. The AC joint is aligned without evidence of separation. There is a type 3 acromion with impingement configuration. There is mild supraspinatus muscular atrophy visible. There is no visible pathologic adenopathy. Scar is noted in the right middle lobe and right lung apex. Atherosclerotic calcifications are noted. CT/Extremity Upper without Contra IMPRESSION: There is severe osteoarthritis at the glenohumeral articulation with flattening of the articular surfaces, subcortical cyst formation, and marginal osteophytes. There are multiple corticated osteochondral fragments in the axillary recess wi th the largest measuring 1.5 cm. There is a type 3 acromion with impingement configuration. Reading Location: [facility]
== END | disposition home or self-care (01) ==
LOC: CT 12:55
PROVIDERS: PCP Family Medicine; Referring Provider Specialist; Visit Provider Specialist
DX: M19.011 Primary osteoarthritis, right shoulder (principal); M25.511 Pain in right shoulder
CPT/HCPCS: 73200

== ENCOUNTER 2024-09-10 07:32 | Observation (INO) | payer MEDICARE, SELFPAY ==
[2023-05-20 08:36] VITALS: BMI 30.2
--- NOTE | 2024-08-16 12:25 | EKG12_ITS ---
Test Reason : PRE OP Blood Pressure : */* mmHG Vent. Rate : 82 BPM Atrial Rate : 82 BPM P-R Int : 148 ms QRS Dur : 136 ms QT Int : 432 ms P-R-T Axes : 48 -38 96 degrees QTcB Int : 504 ms Normal sinus rhythm Possible Left atrial enlargement Left axis deviation Left bundle branch block Abnormal ECG Confirmed by Ernesto Tovar ([id number]), editor continuity and script OLIVIA PEREIRA ([id number]) on 08/17/2024 6:44:42 AM Referred By: Corey Mckeon Confirmed By: Ernesto Tovar
[2024-08-16 13:09] LABS: Hematocrit 36.0 % (37-47); Hemoglobin 11.8 g/dL (12.0-15.0); Immature Granulocytes Count 0.030 X10^3/uL (0.0-0.0); Mean Corp Hgb Conc 32.8 g/dL (32-36); Mean Corpuscular Volume 91.6 fL (81-99); Mean Platelet Vol. 10.1 fl (6.2-12.0); NRBC Flagged by Analyzer 0 % (0-5); Platelet Count 295 K/mm3 (150-450); RBC Distribution Width CV 14.3 % (11.6-14.6); RBC Distribution Width SD 48.1 fl (35.1-43.9); Red Blood Count 3.93 M/mm3 (4.2-5.4); White Blood Count 9.5 K/mm3 (4.4-11.0)
[2024-08-16 13:47] LABS: Albumin, Serum 4.3 g/dL (3.4-4.8); Anion Gap 14 (5-15); BUN 19 mg/dL (4-19); BUN/Creat Ratio 20.1 RATIO (10-20); Calcium,Total 9.3 mg/dL (7.6-11.0); Carbon Dioxide 22.1 mmol/L (21.0-32.0); Chloride 101 mmol/L (98-108); Glucose 182 mg/dL (70-99); Magnesium 1.6 mg/dL (1.5-2.2); Potassium 4.4 mmol/L (3.3-5.1)
--- NOTE | 2024-08-16 14:56 | PAT.ANE_ITS ---
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 When Was Last Pacemaker Check QUESTION #4 FULL TEXT: You/Your Family Experience fever (hyperthermia) with Anesthesia Last Oral Intake Last Oral intake: Last Oral Intake NPO since Meds taken in AM with sips of water? Meds patient instructed to take am of surgery PONV PONV - arts administrator or manager: PONV - arts administrator or manager Female Yes 08/13/24 13:10 HX of Motion Sickness Yes 08/13/24 13:10 HX of N/V After Surgery No 08/13/24 13:10 Non-Smoker Yes 08/13/24 13:10 Duration of Surgery greater Yes 08/13/24 13:10 than 60 minutes Number of Risk Factors 4 08/13/24 13:10 PONV Score Severe Risk 08/13/24 13:10 Height & Weight Height & Weight: Anesthesia: Height & Weight Height 5 ft 5 in 06/05/24 14:25 Respiratory Assessment Respiratory Assessment - arts administrator or manager: Respiratory Tract Infection Hx - arts administrator or manager Hx Respiratory Tract Infection No 08/13/24 13:10 STOP Sleep Apnea STOP Sleep Apnea - arts administrator or manager: STOP Sleep Apnea - arts administrator or manager Hx Hypertension Yes: PER PT, CONTROLLED ON 08/13/24 13:10 MED Hx Sleep Apnea No 08/13/24 13:10 CPAP BIPAP Do you snore loudly (louder No 08/13/24 13:10 than talking or can be heard Do you often feel tired/ No 08/13/24 13:10 fatigued/ sleepy during daytime? Has anyone observed you stop No 08/13/24 13:10 breathing during sleep? STOP Results Negative 08/13/24 13:10 QUESTION #5 FULL TEXT : Do you snore loudly (louder than talking or can be heard through closed doors)? Tobacco Use History Tobacco Use History - arts administrator or manager: Tobacco Use History - arts administrator or manager Tobacco Use Smoking Status Never smoker 08/13/24 13:10 Hx Tobacco Use No 08/13/24 13:10 Years Smoking Packs Smoked per Day Smoking Cessation Date was within the last 15 years Hx Smoking Cessation Date Hx Smoking Cessation Counseling Hematologic Medial History Hematologic Hx - arts administrator or manager: Hematologic Medical Hx - escrow agent Hx of Blood Transfusion No 08/13/24 13:10 Hx of Transfusion in last 3 No 08/13/24 13:10 Months Date of Last Transfusion (if within last 3 months) Ever experience any problems No 08/13/24 13:10 with transfusion(s)? Specify any problems Hx of Preganancy in last 3 No 08/13/24 13:10 Months Nurse Filling Out Transfusion MGRIFFITH 08/13/24 13:10 & Questions: Date: 08/13/24 08/13/24 13:10 Time: 13:13 08/13/24 13:10 Patient unable to answer at this time (ie. confused, unrespo /Reproduction History /Reproductive History - arts administrator or manager: /Reproductive Hx- arts administrator or manager Hx Now No 08/13/24 13:10 Gestational Age (in weeks): EDC: Hx Hx Para Hx Section [facility], [facility] Medical History (Updated 08/13/24 @ 13:23 by Lexie Gerardo) Wears glasses Arthritis Low iron Restless legs Gastric reflux Non-smoker Shortness of breath on exertion History of echocardiogram History of stress test History of Holter monitoring Cardiology follow-up encounter History of heart attack Ischemic cardiomyopathy Atherosclerosis of coronary artery of [place] heart without angina pectoris Stage 3b chronic kidney disease (CKD) Anemia Dyslipidemia ST elevation (STEMI) myocardial infarction (~03/09/23) Benign breast cyst in female History of breast cancer Breast lump in female Sleep-disordered breathing Trimalleolar fracture of right ankle Hypothyroidism Type 2 diabetes mellitus Hypertension Thyroid disease Hyperlipidemia Depression Skin cancer Breast cancer 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 Home Medications ?Medication ?Instructions ?Recorded ?Last Taken ?Type pramipexole 0.5 mg tablet 0.5 mg PO BID restless legs 06/02/16 05/16/17 07:30 History 0.5 MG acetaminophen 500 mg tablet 500 mg PO BID PRN PRN Pain Or Fever 08/14/19 Unknown History citalopram 20 mg tablet 20 mg PO QHS depression 06/28 Unknown History levothyroxine 125 mcg tablet 125 mcg PO MOTUWETHFRSA t hyroid 03/10/23 Unknown History aspirin 81 mg tablet,delayed 81 mg PO DAILY@0800 #0 ta bs 03/11/23 Unknown Rx release losartan 100 mg tablet 100 mg PO DAILY 04/05/23 Unk nown History metformin 500 mg tablet,extended 500 mg PO BID 4 Unknown History release 24 hr omeprazole 40 mg capsule,delayed 40 mg PO DAILY Unknown History release calcium 600 mg (as 1 cap PO BID 07/04/23 Unknow n History carbonate)-vitamin D3 12.5 mcg (500 unit) capsule (Calcium with Vit D3) ftvmfxabauyi-Xx-hkkj-minerals 1 tab PO DAILY vitamin 0 07/04/23 Unknown History atorvastatin 80 mg tablet 80 mg PO QHS #90 tabs Unknown Rx carvedilol 12.5 mg tablet 12.5 mg PO BID #180 tabs Unknown Rx clopidogrel 75 mg tablet 75 mg PO DAILY #90 tabs 03/08 Unknown Rx spironolactone 25 mg tablet 25 mg PO DAILY #30 tabs Unknown Rx ascorbic acid (vitamin C) 500 mg 500 mg PO DAILY SUPPL EMENT 08/13/24 Unknown History capsule ferrous sulfate 325 mg (65 mg 325 mg PO QDAY 08/13/24 Unknown History iron) tablet (Feosol) levothyroxine 125 mcg capsule 62.5 mcg PO DAILY BAXTER 11/29 Unknown History Allergy/AdvReac Type Severity Reaction Status Date / Time Penicillins (PCN) Allergy Severe Hives Verified 08/13/24 13:00 bee venom protein (honey bee) Allergy Anaphylaxis Verified 08/13/24 13:00 Family History Mother Heart disease Breast cancer Lung cancer Hyperlipidemia Arthritis Diabetes Hypertension Kidney disease CAD (coronary artery disease) CABG x4 Father Cancer Sister Diabetes Hypertension Hyperlipidemia Surgical History (Updated 08/13/24 @ 13:23 by Lexie Gerardo) History of cardiac catheterization Stented coronary artery (03/09/22) Hx of colonoscopy History of ankle surgery History of Mohs micrographic surgery for skin cancer History of reconstruction of right breast Hx of right mastectomy Status post open reduction with internal fixation (ORIF) of fracture of ankle Hx of tonsillectomy Social History Smoking Status: Never smoker second hand exposure: No alcohol intake: never substance use type: does not use caffeine: Yes what type of physical activity do you participate in: none frequency: does not exercise Audit: Pertinent Findings Pertinent Findings EKG Perinent findings: Normal sinus rhythm. 90 bpm. Left axis deviation. Left bundle branch block. 03/11/2023. Stress test pertinent findings: 02/15/2024. EF 62% no significant ischemia present. Preserved ejection fraction. Echo (EF%) pertinent findings: 06/29/2024. EF 35%. Severe left ventricular dysfunction. Generalized hypokinesis. Pulmonary artery pressure 39. Moderate severe 3+ mitral valve insufficiency. Consult pertinent findings: Cardiology 06/05/2024. Coronary artery disease. Chronic. History of inferior ST elevation myocardial infarction March 2023. Continue aspirin Plavix beta-blockers. Stented coronary artery. RCA. March 09, 2023. Ischemic cardiomyopathy. Resolved. Overall EF 55% most recent echocardiogram. Hypertension. Chronic. Stable. Left bundle branch block. Resting images on perfusion SPECT demonstrate the most likely previous inferior and distal anterior infarct. Minimal favio-infarct ischemia cannot be excluded. Recommendation Anesthesia Recommendation Anesthesia recommendation: OPTIMIZED for anesthesia
--- NOTE | 2024-09-06 17:02 | HP.PCM_ITS ---
History and Physical History and Physical Patient Name: Eloisa Love: 1950 From: DATE OF PRE-OPERATIVE EXAM: 09/03/2024 DATE OF SURGERY: 09/10/2024 SCHEDULED PROCEDURE: Right reverse total shoulder arthroplasty HISTORY OF PRESENT ILLNESS: The patient presents with a chief complaint of right shoulder pain rated 8/10 at its most severe. The pain is longstanding but has significantly worsened over time. The patient reports particular difficulty during sleep as she is a side sleeper. She experiences significant limitations in activities of daily living, including putting on shirts or jackets, requiring assistance from her . The patient can only raise her right arm to about shoulder level, limiting her ability to perform self-maintenance tasks such as doing her hair, applying makeup, and using a curling iron. The patient's surgical history includes a shoulder injection administered approximately 8 years ago, which was not hel pful. She previously found relief with itwi-duc-pdchuhy anti-inflammatory medications like Aleve. However, following a heart attack in March of the previous year, she was instructed to discontinue these medications due to her concurrent use of Plavix and daily aspirin. Currently, the patient is taking Tylenol, which provides minimal relief. The patient reports unsuccessful previous treatments including the shoulder injection and zssz-fur-bidglip anti- inflammatory medications. Tylenol, which she is currently allowed to take, provides minimal relief. The patient expresses readiness to consider more definitive treatment options, given the limited effectiveness of conservative measures. The patient's medical history includes coronary artery disease with a heart attack in March 2023 and diabetes. REVIEW OF SYSTEMS: Review Of Systems: Constitutional: Denies change in appetite, fever and weight change. Cardiovasular: Denies chest pain, heart murmur and irregular heartbeat. Respiratory: Reports cough, but denies pneumonia, shortness of breath, tuberculosis and wheezing. Gastrointestinal: Reports heartburn, but denies constipation, diarrhea, nausea, rectal itching, bloody stools and vomiting. Genitourinary: . (F Genital Sx) . (Urinary Sx) Musculoskeletal: Reports pain, trouble walking and weakness, but denies leg swelling. Skin: Denies Raynaud's, history of shingles and tattoo. Neurological: Reports numbness/tingling but denies ambulatory dysfunction, dizziness and tremor. Psychiatric: Denies anxiety, insomnia and stress. Hematologic/Lymphatic: Reports past transfusion, but denies anemia and bleeding/bruising tendency. Reviewed, no changes. PAST MEDICAL HISTORY: Advance Care Plan: No Advance Directives Effective Date: 06/28/2024 Past Medical History: Medical Problems: Acid Reflux, Arthritis, Diabetes, Heart Attack, High Blood Pressure, Hypercholesterolemia, Osteoporosis, Thyroid Disease, Covid-19 Vaccine, Coronary Artery Disease (CAD), Chronic anticoagulation Cancer - (1994) right breast Accidents: Fracture - bilateral ankles Surgical Hx: Heart Stent - (2023) Dr. Delong Mastectomy - (1994) Tonsillectomy Anesthesia Complications: None Assistive Devices: Glasses Reviewed, no changes. SOCIAL HISTORY: Social History: Marital: .Occupation: Retired.Work Status: Retired.Hand Dominance: Right- handed. Personal Habits: Cigarette Use: Never Smoked Cigarettes.Smokeless Tobacco: Never Used Smokeless Tobacco.E-Cigarette Use: Never used.Alcohol: Denies use.Drug Use: Denies Use.Enjoy Exercising: Exercises 1-3 X/Week. Reviewed, no changes. VITALS: Ht: 66 Wt: 163lb Wt k.937 BMI: 26.3 BP: 130/72 Pulse: 81 Resp: 11 T: 97.9 T: 36.6C Pain Level: 5/10 O2SatR: 94 ALLERGIES: Penicillin - as a child MEDICATIONS: Metformin HCL ER 500 mg 1po qday, Atorvastatin Calcium 80 mg daily, Pramipexole Dihydrochloride 0.5 mg daily, Levothyroxine Sodium 125 mcg 1po qday, Citalopram Hydrobromide 20 mg daily, Carvedilol 12.5 mg daily, Omeprazole 40 mg daily, Clopidogrel Bisulfate 75 mg daily, Aspirin 81 81 mg 1 pill 2x/day by mouth, One A Day Vitamin one daily, Spironolactone 25 mg 1 by mouth every day PRE-OP EXAM: General appearance:NORMAL Other: Eyes: Conjunctivae and lids: NORMAL Pupils: ERR Ears, Nose, Mouth, and Throat: NORMAL Other: Inspection of lips, teeth and gums: NORMAL Other: Neck: Examination of neck: no masses noted. Respiratory: Assessment of respiratory effort: NORMAL Other: Auscultation of lungs: clear to auscultation no wheezes, rhonchi or rales. Cardiovascular: Auscultation of heart: regular rate and rhythm, no murmurs, gallops or rubs. Exam of carotid arteries: NORMAL Other: Gastrointestinal: Exam of abdomen: soft, nontender, nondistended bowel sounds present. Lymphatic: Palpation of nodes in neck: NORMAL Other: Palpation of nodes in Axillae: NORMAL Other: Neurological: see below Psychiatric: Orientation to time, place and person: NORMAL Other: Mood and affect: NORMAL Other: PHYSICAL EXAMINATION: - Right shoulder exam: - Forward elevation: 80 active and passive - Internal rotation: to beltline - External rotation: 10 - Muscle Strength: 4/5 with elevation, associated with pain IMAGING STUDIES: - Diagnostic Test Results Independent interpretation: - X-ray (date not specified): - Right shoulder: 100% obxh-sq-beyw arthritis - Large bone spur and loose body in the inferior pouch of shoulder joint - Considerable bony wear on socket with posterior subluxation IMPRESSION: Acid reflux Diabetes History of heart attack Pretension Hypercholesterolemia Osteoporosis Thyroid disease Coronary artery disease History of breast cancer. History of heart stent. Primary osteoarthritis right shoulder Pain right shoulder Long-term anticoagulation use Overweight PLAN: The surgeon did discuss and review all treatment options with the patient including surgical versus nonsurgical. At this time the patient does wish to proceed with the above-stated procedure. Potential risks benefits and complications of the procedure were discussed and reviewed with the patient including but not limited to , infection, nerve and blood vessel damage, persistent pain, numbness, tingling, paresthesias, blood clot, pulmonary embolism, in the requirement for possible further surgery. Patient expressed full understanding. Has no further questions for the doctor. Does agree to proceed with the above-stated procedure, and has signed the appropriate surgery consent form. DVT prophylaxis: Patient will be taking aspirin 81 mg twice daily in addition to regular Plavix. Patient will also be wearing CARROLL hose for 2 weeks postoperatively. Pain medications: Patient will be taking Tylenol 1000 mg every 8 hours as well as oxycodone as needed for pain control. Patient will be on famotidine for 30 days postoperatively. Patient will be on Zofran as needed. Patient will be on senna as needed for postoperative constipation. ___ I have re-examined the patient. There are no clinical changes since date of exam. ___ See progress notes for changes. ___ Dictated on admission Date: Time: Signature:
[2024-09-10] VITALS (14 sets, daily range): BP systolic 95–159; BP diastolic 55–88; PULSE 72–95; RESP 16–18; TEMP 2.7–36.8; O2SAT 92–100; BMI 27.2
--- NOTE | 2024-09-10 08:38 | PCM.PRE.AN2 ---
ASA Classification* ASA Classification ASA Classification: 3 Assessment & Plan Anesthesia* Anesthesia Assessment Anesthesia Assessment: Discussed sedation and/or anesthesia options, risks, benefits, and alternatives with patient/parents/legal guardian/POA. Questions invited. The patient/parents/legal guardian/POA seems to understand and agrees to proceed with anesthesia plan. Reviewed the physical assessment, medical history, allergy history and patient home medications list prior to surgery/procedure/anesthetic and documented any changes. Performed airway and anesthesia risk assessments. Anesthesia Type Anesthesia Type: General and Block Anesthesia Focused Assessment* Airway Assessment Mouth opens: >3 cm Mallampati Score: II Labs Anesthesia Preop lab: CBC WBC 9.5 K/mm3 (4.4-11.0) 08/16/24 12:08/16/24 RBC 3.93 M/mm3 (4.2-5.4) L 08/16/24 12:08/16/24 Hgb 11.8 g/dL (12.0-15.0) L 08/16/24 12:08/16/24 Hct 36.0 % (37-47) L 08/16/24 12:08/16/24 Plt Count 295 K/mm3 (150-450) 08/16/24 12:08/16/24 CHEMISTRY Potassium 4.4 mmol/L (3.3-5.1) 08/16/24 12:08/16/24 Sodium 138 mmol/L (133-145) 08/16/24 12:08/16/24 Magnesium 1.6 mg/dL (1.5-2.2) 08/16/24 12:08/16/24 Phosphorus 4.5 mg/dL (2.5-4.9) 02/09/24 10:15 02/09/24 BUN 19 mg/dL (4-19) 08/16/24 12:08/16/24 Creatinine 0.92 mg/dL (0.70-1.20) 08/16/24 12:08/16/24 Glucose 182 mg/dL (70-99) H 08/16/24 12:08/16/24 POC Glucose 123 mg/dL (70-110) H 05/16/17 16:17 05/16/17 TSH 1.440 uIU/mL (0.300-4.200) 08/16/24 12:24 08/16/24 COAG PT 13.6 SECONDS (11.7-14.9) 05/17/17 05:04 05/17/17 Pre-Assessment Diagnosis/Proposed Procedure Planned Operative Procedure(s): (R) Total Shoulder Replacement, Reverse Anesthesia History 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 When Was Last Pacemaker Check QUESTION #4 FULL TEXT: You/Your Family Experience fever (hyperthermia) with Anesthesia Last Oral Intake Last Oral intake: Last Oral Intake NPO since Meds taken in AM with sips of water? Meds patient instructed to take am of surgery PONV PONV - railway yard assistant: PONV - railway yard assistant Female Yes 08/13/24 13:10 HX of Motion Sickness Yes 08/13/24 13:10 HX of N/V After Surgery No 08/13/24 13:10 Non-Smoker Yes 08/13/24 13:10 Duration of Surgery greater Yes 08/13/24 13:10 than 60 minutes Number of Risk Factors 4 08/13/24 13:10 PONV Score Severe Risk 08/13/24 13:10 Height & Weight Height & Weight: Anesthesia: Height & Weight Height 5 ft 5 in 06/05/24 14:25 Respiratory Assessment Respiratory Assessment - railway yard assistant: Respiratory Tract Infection Hx - railway yard assistant Hx Respiratory Tract Infection No 08/13/24 13:10 STOP Sleep Apnea STOP Sleep Apnea - railway yard assistant: STOP Sleep Apnea - railway yard assistant Hx Hypertension Yes: PER PT, CONTROLLED ON 08/13/24 13:10 MED Hx Sleep Apnea No 08/13/24 13:10 CPAP BIPAP Do you snore loudly (louder No 08/13/24 13:10 than talking or can be heard Do you often feel tired/ No 08/13/24 13:10 fatigued/ sleepy during daytime? Has anyone observed you stop No 08/13/24 13:10 breathing during sleep? STOP Results Negative 08/13/24 13:10 QUESTION #5 FULL TEXT : Do you snore loudly (louder than talking or can be heard through closed doors)? 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 Specify any problems Hx of Preganancy in last 3 No 08/13/24 13:10 Months Nurse Filling Out Transfusion MGRIFFITH 08/13/24 13:10 & Questions: Date: 08/13/24 08/13/24 13:10 Time: 13:13 08/13/24 13:10 Patient unable to answer at this time (ie. confused, unrespo /Reproduction History /Reproductive History - railway yard assistant: /Reproductive Hx- railway yard assistant Hx Now No 08/13/24 13:10 Gestational Age (in weeks): EDC: Hx Hx Para Hx Section SAB Active Medications Active Medications: Current Medications Generic Name Dose Route Start Last Admin Trade Name Freq PRN Reason Stop Dose Admin Acetaminophen 1,000 mg 09/10/24 13:30 Acetaminophen 500 Mg Tablet PO 09/10/24 13:31 PREOP ONE Acetaminophen 1,000 mg 09/10/24 14:00 Acetaminophen 500 Mg Tablet PO Q8 NOLAN Aspirin 81 mg 09/10/24 10:00 Aspirin 81 Mg Tab.Chew PO BID NOLAN Tranexamic Acid 2,000 mg/ 0 mg 09/10/24 13:30 Sodium Chloride 100 ml OPERA.SITE 09/10/24 13:31 X1 ONE Sodium Chloride 77.9 ml/ 0 ml 09/10/24 13:30 Ropivacaine 200 mg/ OPERA.SITE 09/10/24 13:31 Epinephrine HCl 0.6 mg/ INTRAOP ONE Ketorolac Tromethamine 30 mg/ Morphine Sulfate 5 mg Dexamethasone Sodium Phosphate 10 mg 09/10/24 13:30 Dexamethasone 10 Mg/Ml Vial IV 09/10/24 13:31 INTRAOP ONE Enteral Nutritional Formula 237 ml 09/10/24 08:00 Ensure Surgery 237 Ml Liquid PO TIDCM [facility] Famotidine 20 mg 09/10/24 10:00 Famotidine 20 Mg Tablet PO DAILY NOLAN Gabapentin 600 mg 09/10/24 13:30 Gabapentin 600 Mg Tablet PO 09/10/24 13:31 PREOP ONE Lactated Ringer's 1,000 mls @ 999 mls/hr 09/10/24 13:30 IV 09/10/24 14:30 .Q1H1M NOLAN Cefazolin Sodium 2 gm/ Sodium 110 mls @ 150 mls/hr 09/10/24 13:30 Chloride IV 09/10/24 14:13 INTRAOP ONE Lactated Ringer's 1,000 mls @ 999 mls/hr 09/10/24 13:30 IV 09/10/24 14:30 .Q1H1M NOLAN Lactated Ringer's 1,000 mls @ 125 mls/hr 09/10/24 13:30 IV 09/10/24 21:29 .Q8H [facility] Vancomycin HCl 1,000 mg in 200 mls @ 200 mls/hr 09/10/24 13:30 Vancomycin IV 09/10/24 14:29 PREOP ONE Magnesium Sulfate 2 gm/ 104 mls @ 208 mls/hr 09/10/24 13:30 Dextrose IV 09/10/24 13:59 INTRAOP ONE Cefazolin Sodium 1 gm in 50 mls @ 100 mls/hr 09/10/24 07:35 IV 09/10/24 16:04 Q8H [facility] Insulin Human Lispro 1 - 6 unit 09/10/24 13:30 Insulin Lispro 100 Unit/Ml Insuln.Pen SC Q4H PRN PRN BG>/= 180, SEE PROTOCOL Protocol Ketorolac Tromethamine 15 mg 09/10/24 07:32 Ketorolac 15 Mg/Ml Vial IV 09/11/24 07:34 Q6H PRN PRN Pain Score 1-10 Morphine Sulfate 2 - 4 mg 09/10/24 07:32 Morphine 2 Mg/Ml Syringe IV Q2H PRN PRN Pain Score 4-10 Ondansetron HCl 4 mg 09/10/24 07:32 Ondansetron 4 Mg/2 Ml Vial IV Q6H PRN PRN NAUSEA/VOMITING Oxycodone HCl 5 - 10 mg 09/10/24 07:32 Oxycodone 5 Mg Tablet PO Q4H PRN PRN Pain Score 4-10 Promethazine HCl 12.5 mg 09/10/24 07:32 Promethazine 25 Mg Tablet PO Q6H PRN PRN NAUSEA/VOMITING Promethazine HCl 12.5 mg 09/10/24 07:32 Promethazine 25 Mg/Ml Syringe IM Q6H PRN PRN NAUSEA/VOMITING Senna/Docusate Sodium 2 tablet 09/10/24 10:00 Senna/Docusate Sodium 1 Tablet PO BID [facility] Medical History Wears glasses Arthritis Low iron Restless legs Gastric reflux Non-smoker Shortness of breath on exertion History of echocardiogram History of stress test History of Holter monitoring Cardiology follow-up encounter History of heart attack Ischemic cardiomyopathy Atherosclerosis of coronary artery of [place] heart without angina pectoris Stage 3b chronic kidney disease (CKD) Anemia Dyslipidemia ST elevation (STEMI) myocardial infarction (~03/09/23) Benign breast cyst in female History of breast cancer Breast lump in female Sleep-disordered breathing Trimalleolar fracture of right ankle Hypothyroidism Type 2 diabetes mellitus Hypertension Thyroid disease Hyperlipidemia Depression Skin cancer Breast cancer 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 Home Medications ?Medication ?Instructions ?Recorded ?Last Taken ?Type pramipexole 0.5 mg tablet 0.5 mg PO BID restless legs 06/02/16 05/16/17 07:30 History 0.5 MG acetaminophen 500 mg tablet 500 mg PO BID PRN PRN Pain Or Fever 08/14/19 Unknown History citalopram 20 mg tablet 20 mg PO QHS depression 03/10/23 Unknown History levothyroxine 125 mcg tablet 125 mcg PO MOTUWETHFRSA thyroid 03/10/23 Unknown History aspirin 81 mg tablet,delayed 81 mg PO DAILY@0800 #0 tabs 03/11/23 Unknown Rx release losartan 100 mg tablet 100 mg PO DAILY 04/05/23 Unknown History metformin 500 mg tablet,extended 500 mg PO BID 04/05/23 Unknown History release 24 hr omeprazole 40 mg capsule,delayed 40 mg PO DAILY 04/05/23 Unknown History release calcium 600 mg (as 1 cap PO BID 07/04/23 Unknown History carbonate)-vitamin D3 12.5 mcg (500 unit) capsule (Calcium with Vit D3) [id number]-minerals 1 tab PO DAILY vitamin 07/04/23 Unknown History atorvastatin 80 mg tablet 80 mg PO QHS #90 tabs 01/23/24 Unknown Rx carvedilol 12.5 mg tablet 12.5 mg PO BID #180 tabs 03/26/24 Unknown Rx clopidogrel 75 mg tablet 75 mg PO DAILY #90 tabs 03/26/24 Unknown Rx spironolactone 25 mg tablet 25 mg PO DAILY #30 tabs 06/29/24 Unknown Rx ascorbic acid (vitamin C) 500 mg 500 mg PO DAILY SUPPLEMENT 08/13/24 Unknown History capsule ferrous sulfate 325 mg (65 mg 325 mg PO QDAY 08/13/24 Unknown History iron) tablet (Feosol) levothyroxine 125 mcg capsule 62.5 mcg PO DAILY BAXTER 08/13/24 Unknown History Allergy/AdvReac Type Severity Reaction Status Date / Time Penicillins (PCN) Allergy Severe Hives Verified 08/13/24 13:00 bee venom protein (honey bee) Allergy Anaphylaxis Verified 08/13/24 13:00 Family History Mother Heart disease Breast cancer Lung cancer Hyperlipidemia Arthritis Diabetes Hypertension Kidney disease CAD (coronary artery disease) CABG x4 Father Cancer Sister Diabetes Hypertension Hyperlipidemia Surgical History History of cardiac catheterization Stented coronary artery (03/09/22) Hx of colonoscopy History of ankle surgery History of Mohs micrographic surgery for skin cancer History of reconstruction of right breast Hx of right mastectomy Status post open reduction with internal fixation (ORIF) of fracture of ankle Hx of tonsillectomy Social History Smoking Status: Never smoker second hand exposure: No alcohol intake: never substance use type: does not use caffeine: Yes what type of physical activity do you participate in: none frequency: does not exercise Review of Systems (Anesthesia) ROS Narrative System reviewed and no additional complaints, except as documented.
[2024-09-10] MEDS: Magnesium 2 GM for ERAS IV (09:28)
[2024-09-10] MEDS: LR 1,000 ML - BOLUS PREOP 999 ML IV (09:29)
[2024-09-10] MEDS: Vancomycin IV 1,000 MG/200 ML BAG 200 MG IV (09:29)
--- NOTE | 2024-09-10 10:30 | SHO_PTH ---
PATIENT: TORY TSANG LOC: MS3 U#:[id number] AGE/SX: 74/F ROOM: [facility] [place]10[place]: Dr. Corey Mckeon MD : 1950 BED: 1 DIS: 09/11/2024 SPEC #: [id number] RECD: 09/10/24 14:42 STATUS: MEET REMegan #: [id number] ERIKA: 09/10/24 10:[address]: Corey Mckeon DEPT: SURGICAL PATHOLOGY RECD BY: Nabil Bella ENTERED: 09/10/24 15:03 SP TYPE: HUMERUS OTHR DR: Dr. Teodoro Farias MD Tissues: A - Humerus, NOS Procedures: Decalcification bone/plaque Surgery Specimen Level III HEADER OPERATION: ERAS, total shoulder replacement, reverse PRE-OP DIAGNOSIS: Bone on bone arthritis, right shoulder, large bone spur and loose body inferior pouch of shoulder, bony wear on socket with posterior subluxation TISSUE SUBMITTED: A- Humeral head, bone and tissue, right shoulder MICROSCOPIC DIAGNOSIS A. Right humerus, head, total shoulder arthroplasty: - Articular bone with osteoarthritic reactive/degenerative changes. MICROSCOPIC DESCRIPTION Slides are reviewed. GROSS DESCRIPTION A. Received in formalin labeled with the patient's name and date of . Designated as humeral head and tissue-right shoulder is a 5.3 x 4.9 x 1.7 cm humeral head and 3 clarke-white loose bodies, 1.5 x 1.0 x 0.9 cm to 2.2 x 1.8 x 1.1 cm. The articular cartilage of the humeral head is clarke-red and granular with eburnation and peripheral osteophyte formation. Sections of the humeral head are submitted in 1 cassette, following decalcification. CT 09/10/2024 CPT:45962,65002
[2024-09-10] MEDS: Cefazolin 2 GM in 0.9% Normal Saline (100mL Bag) 100 ML IV (11:12)
--- NOTE | 2024-09-10 12:10 | OP.PCM_ITS ---
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 [employer] Chair: Naty Calvo Tasks completed by sampler first: Other (See body of operative report) Additional assistant women's soccer coach?: No Type of Anesthesia: General RN Documented Start/Stop Times: Operation Date: 09/10/24 10:30 Case Time Into Pre-Op 09/10/24 08:23 Anesthesia Start 09/10/24 10:47 Into Room 09/10/24 10:47 Procedure Start 09/10/24 11:24 Procedure End 09/10/24 13:09 Out of Room 09/10/24 13:17 Anesthesia End 09/10/24 13:18 Into Recovery 09/10/24 13:20 Procedure Start Time: 11:24 Procedure Stop Time: 13:09 Select all DRAINS/GRAFTS/IMPLANTS that apply: Prosthetic device Prosthetic device details: See body of operative report Special Medications: Ancef, vancomycin, 2 g TXA lavage Estimated Blood Loss: 250 mL Fluids Replaced: 1200 mL crystalloid Specimen collected: Yes Description of specimen(s) removed: Bony cuts Description of surgery: Components used 1. Tournier perform glenoid 25 mm, +3 mm baseplate 2. Tournier perform 36 mm, 0 mm Glenosphere 3. Tournier perform 36 mm, 0 mm humeral liner retentive 4. Tournier perform humeral stem primary press-fit 3 size Brief history/Operative indications: 74 yo f with history of R shoulder pain and cuff tear arthropathy. Patient failed conservative measures as mentioned in the H&P. After discussion of risk and benefits of reverse total shoulder replacement including but not limited to blood loss, DVTs, PEs, nerve vessel damage, infection, general risk of anesthesia including loss of life, instability and stiffness patient demonstrating understanding wish to proceed was able to sign informed consent. Medical clearance was obtained. Procedure: On the date of the procedure, patient's R upper extremity was marked in the preoperative area. Patient was taken back to the operating room where they were placed on the table in the supine position. Anesthesia assumed control of the C-spine and airway, then administered anesthetic. All bony prominences were identified well-padded, the head was secured and the patient was placed in the beachchair position at about 35? inclination. Anesthesia remained in control of the C-spine airway throughout the remainder of the procedure. Patient was then appropriately fastened to the table and the R upper extremity was prepped in a sterile fashion. The surgeons then scrubbed. Upon reentering the room, the R upper extremity was draped in a sterile fashion and the incision was marked out. Timeout was called, everyone agreed upon the side, the site, the procedure to be performed, patient identity and antibiotics given. Incision was taken down through skin and subcutaneous tissue, fat down to fascia. The stripe of the deltopectoral interval and cephalic vein were identified and blunt dissection was used to retract the deltoid. The cephalic vein was retracted laterally. Clavipectoral fascia was then incised and a cobra retractor was placed in the wound. The proximal one third of the pectoralis major insertion was released. Pectoralis tendon insertion was used to tenodesed the biceps tendon which was identified in the bicipital groove. Tenodesis was done with #1 Vicryl. Proximally we followed the biceps tendon after transecting it into the rotator interval. The rotator interval was split and the arm was externally rotated. The split was 1 cm medial to the bicipital groove. Subscapularis tendon was released. We released down the anterior portion of the humeral head and a prajapati elevator was used to release the inferior portion of the humeral head. The arm was externally rotated and the shoulder was dislocated. The humeral head was then cut at its natural retroversion. Once his humeral head cut was made humerus was retracted out of the way and the glenoid was exposed. After exposing the glenoid, the labrum and the remaining proximal biceps were debrided. At this time we are able to view the entire outer edge of the glenoid. A central pin was placed we sequentially reamed over this central pin to 25mm. Once this was completed the central screw was measured and found to be. The glenoid baseplate was screwed into place. Wound was closely irrigated out with normal saline we then drilled sequentially for 2 screws. Screws were placed superiorly and inferiorly and tightened down the screws. Once the screws were appropriately tightened into place the glenoid baseplate was compressed against the exposed subchondral bone. A 36mm glenosphere was impacted into place engaging the Solomon taper and tightened the central screw. Attention was then turned towards the humerus. The humerus was again externally rotated exposing the proximal portion of the humerus. Central canal finder was then used to open up the canal. We reamed to a size 3 reamer. We then broached to a size 3 stem. We trialed the retentive 0mm liner. We obtained an adequate reduction at this time with a nice stable shoulder. Good internal rotation to the gluteus, forward elevation to 140?, external rotation to 20?. Final components were then assembled on the back table, trials were removed and the wound was copiously irrigated with normal saline after dislocating the shoulder. Once the final components were assembled they were impacted into place. Shoulder was then reduced and found to be stable with good range of motion. Subscapularis tendon repaired with #2 FiberWire. The wound was with chlor hexidine solution then copiously irrigated out with a 1 L normal saline lavage. The deltopectoral fascia was then closed using #1 Vicryl skin was closed using 2-0 Vicryl interrupted sutures and final skin closure was done with 3-0 stratafix. Steri-Strips are placed for final skin closure. Sterile dressing was placed patient was then placed in a sling and awakened by anesthesia. Patient was then transferred to the PACU for recovery. Postoperative plan: Patient will be admitted to the hospital overnight. They will get physical therapy starting in 2 weeks with normal postoperative regimen. Patient will be placed on [] for DVT prophylaxis. The first postoperative appointment will be in 2 weeks for wound check and initiation of phase 1 physical therapy. During the course of the procedure the physician assistant women's soccer coach played a vital role. His intimate knowledge of my steps in the procedure aided in safe and expedient completion of the procedure. The PA played a vital rolls in positioning particularly in obtaining the appropriate beach chair position and securing the patient's body and head to the table. The PA was also vital in the retraction of soft tissues during the exposure and especially the glenoid work as this is a vital part of the procedure to prevent neurovascular damage. the PA was also vital and protecting soft tissues during times of bony cuts and reaming. He als o played a vital role in closure with my direct supervision. The PA was also important during reduction and dislocation of the joint and trials intraoperatively. Surgical Findings: Stage IV osteoarthritis Complications Complications: No
[2024-09-10] MEDS: TXA 2000mg in NS 100ml (Placed in Wound) OPERA.SITE (12:15)
--- NOTE | 2024-09-10 13:22 | PCM.POST.ANE ---
Anesthesia: Postop Eval I Current Vital Signs Temperature: 36.8 F Pulse Rate: 78 Blood Pressure: 150/80 Respiratory Rate: 18 Pulse Ox: 98 Oxygen Delivery Method: Room Air Assessment Airway patent: Yes Spontaneous unlabored respirations: Yes Mental status: Awake nausea: No Vomiting: No Anesthesia Complication: No Fluid Hydration Crystalloid volume administer (ml): 1,500 Total IV fluid infused: 1,500 Progress Note Anesthesia document: Postop Eval 1 completed: Yes
[2024-09-10] MEDS: LR 1,000 ML - BOLUS POSTOP 999 ML IV (13:30)
--- NOTE | 2024-09-10 13:35 | RAD_ITS ---
PROCEDURE: SHOULDER MIN 2 VIEWS 09/10/2024 REASON FOR EXAM: POST OP X-RAY Right shoulder status post total reverse arthroplasty TECHNIQUE: SHOULDER MIN 2 VIEWS COMPARISON: None. FINDINGS: Bones: Normal mineralization hardware is well-positioned, intact and without obvious complication. Soft tissues: Unremarkable Other: RAD/Shoulder min 2 Views IMPRESSION: Status post total reverse shoulder arthroplasty with well-positioned hardware w ithout obvious complication. Reading Location: [facility]
--- NOTE | 2024-09-10 15:10 | POSTOPAN2_ITS ---
Anesthesia Postop Eval I Sum Postop Eval Completion status Anesthesia document: Postop Eval 1 completed: Yes Anesthesia Postop Eval I Summary Anesthesia Postop Eval I Summary: Anesthesia Postop Eval I: Assessment Summary Airway patent Yes 09/10/24 13:23 FUEL STORAGE [email or web address] Spontaneous unlabored Yes 09/10/24 13:23 FUEL STORAGE [email or web address] respirations Mental status Awake 09/10/24 13:23 FUEL STORAGE [email or web address] nausea No 09/10/24 13:23 FUEL STORAGE [email or web address] Vomiting No 09/10/24 13:23 FUEL STORAGE [email or web address].[email or web address] Anesthesia Postop Eval I: Fluid Summary Crystalloid volume administer 1,500 09/10/24 13:23 FUEL STORAGE [email or web address] (ml) Colloids volume administered ( ml) Blood Product volume administered (ml) Total IV fluid infused 1,500 09/10/24 13:23 FUEL STORAGE [email or web address] Anesthesia Postop Eval I: Summary Notes Anesthesia Complication No 09/10/24 13:23 FUEL STORAGE [email or web address] Anesthesia Complication Comment: Post-operative progress note Anesthesia: Postop Eval II Evaluation Mental status: Awake and Calm Pain Level: 1 nausea: No Vomiting: No
--- NOTE | 2024-09-10 15:10 | PCM.POSTANE2 ---
Anesthesia Postop Eval I Sum Postop Eval Completion status Anesthesia document: Postop Eval 1 completed: Yes Anesthesia Postop Eval I Summary Anesthesia Postop Eval I Summary: Anesthesia Postop Eval I: Assessment Summary Airway patent Yes 09/10/24 13:23 PROTOTYPE [email or web address] Spontaneous unlabored Yes 09/10/24 13:23 PROTOTYPE [email or web address].[email or web address] respirations Mental status Awake 09/10/24 13:23 PROTOTYPE [email or web address] nausea No 09/10/24 13:23 PROTOTYPE [email or web address] Vomiting No 09/10/24 13:23 PROTOTYPE [email or web address] Anesthesia Postop Eval I: Fluid Summary Crystalloid volume administer 1,500 09/10/24 13:23 PROTOTYPE [email or web address] (ml) Colloids volume administered ( ml) Blood Product volume administered (ml) Total IV fluid infused 1,500 09/10/24 13:23 PROTOTYPE [email or web address].[email or web address] Anesthesia Postop Eval I: Summary Notes Anesthesia Complication No 09/10/24 13:23 PROTOTYPE [email or web address].[email or web address] Anesthesia Complication Comment: Post-operative progress note Anesthesia: Postop Eval II Evaluation Mental status: Awake and Calm Pain Level: 1 nausea: No Vomiting: No
[2024-09-10] MEDS: LR 1,000 ML - 125 ML/HR (POST BOLUS) POST OP IV (16:00)
--- NOTE | 2024-09-10 16:07 | PCM.CONS.GEN ---
Assessment & Plan Assessment/Plan (1) Type 2 diabetes mellitus: (2) Stented coronary artery: PLAN: Plan #Hx of CAD -w/ previous stenting -Continue home atorvastatin, beta-richie, resume aspirin and Plavix when okay to do so by primary team #Hypothyroidism -Continue Synthroid #Type 2 diabetes mellitus -Glucose checks and sliding scale insulin - Hold home oral hypoglycemics until discharge #Hypertension - Continue carvedilol, hold losartan and spironolactone to allow room for pain control, add back as tolerated #GERD -Continue PPI #Depression/anxiety -Continue home medications # Restless leg syndrome -continue patient's home medication regimen # Right primary osteoarthritis with glenoid erosion - Status post right reverse total shoulder replacement with Dr. Mckeon 09/10/2024 - PT/OT - Management/pain management per primary #DVT ppx: Timing and agent at the discretion of primary team Regina Sawyer MD Time spent in the patient's overall evaluation, decision-making process, review of diagnostic data, adjustment of management, discussion with other providers, nursing and ancillary staff involved in patient's care documentation, 15 Minutes HPI Consult Data Date of Consult: 09/10/24 HPI Narrative Reason for Consultation: Postop medical management HPI Narrative: TORY TSANG, is a 74 F with a history of coronary artery disease with stenting, hypothyroidism, diffuse, depression, GERD, restless leg syndrome who presented [facility] ED 09/10/2024 for right shoulder primary osteoarthritis with operative management of right reverse total shoulder replacement. Hospitalist consulted for postop medical management. Patient evaluated bedside, reports there is a little bit sore is causing her low bit of a cough but no shoulder pain no other acute complaints [facility] Medical History Wears glasses Arthritis Low iron Restless legs Gastric reflux Non-smoker Shortness of breath on exertion History of echocardiogram History of stress test History of Holter monitoring Cardiology follow-up encounter History of heart attack Ischemic cardiomyopathy Atherosclerosis of coronary artery of [place] heart without angina pectoris Stage 3b chronic kidney disease (CKD) Anemia Dyslipidemia ST elevation (STEMI) myocardial infarction (~03/09/23) Benign breast cyst in female History of breast cancer Breast lump in female Sleep-disordered breathing Trimalleolar fracture of right ankle Hypothyroidism Type 2 diabetes mellitus Hypertension Thyroid disease Hyperlipidemia Depression Skin cancer Breast cancer 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 Home Medications ?Medication ?Instructions ?Recorded ?Last Taken ?Type pramipexole 0.5 mg tablet 0.5 mg PO BID restless legs 06/02/16 05/16/17 07:30 History 0.5 MG acetaminophen 500 mg tablet 500 mg PO BID PRN PRN Pain Or Fever 08/14/19 Unknown History citalopram 20 mg tablet 20 mg PO QHS depression 03/10/23 Unknown History levothyroxine 125 mcg tablet 125 mcg PO MOTUWETHFRSA thyroid 03/10/23 09/10/24 06:30 History aspirin 81 mg tablet,delayed 81 mg PO DAILY@0800 #0 tabs 03/11/23 09/10/24 06:30 Rx release losartan 100 mg tablet 100 mg PO DAILY 04/05/23 09/10/24 06:30 History metformin 500 mg tablet,extended 500 mg PO BID 04/05/23 Unknown History release 24 hr omeprazole 40 mg capsule,delayed 40 mg PO DAILY 04/05/23 09/10/24 06:30 History release calcium 600 mg (as 1 cap PO BID 07/04/23 Unknown History carbonate)-vitamin D3 12.5 mcg (500 unit) capsule (Calcium with Vit D3) mlohlpvewejc-Lr-rvsw-minerals 1 tab PO DAILY vitamin 07/04/23 Unknown History atorvastatin 80 mg tablet 80 mg PO QHS #90 tabs 01/23/24 Unknown Rx carvedilol 12.5 mg tablet 12.5 mg PO BID #180 tabs 03/26/24 09/10/24 06:30 Rx clopidogrel 75 mg tablet 75 mg PO DAILY #90 tabs 03/26/24 09/05/24 Rx spironolactone 25 mg tablet 25 mg PO DAILY #30 tabs 06/29/24 Unknown Rx ascorbic acid (vitamin C) 500 mg 500 mg PO DAILY SUPPLEMENT 08/13/24 Unknown History capsule ferrous sulfate 325 mg (65 mg 325 mg PO QDAY 08/13/24 Unknown History iron) tablet (Feosol) levothyroxine 125 mcg capsule 62.5 mcg PO DAILY BAXTER 08/13/24 Unknown History Allergy/AdvReac Type Severity Reaction Status Date / Time Penicillins (PCN) Allergy Severe Hives Verified 08/13/24 13:00 bee venom protein (honey bee) Allergy Anaphylaxis Verified 08/13/24 13:00 Family History Mother Heart disease Breast cancer Lung cancer Hyperlipidemia Arthritis Diabetes Hypertension Kidney disease CAD (coronary artery disease) CABG x4 Father Cancer Sister Diabetes Hypertension Hyperlipidemia Surgical History History of cardiac catheterization Stented coronary artery (03/09/22) Hx of colonoscopy History of ankle surgery History of Mohs micrographic surgery for skin cancer History of reconstruction of right breast Hx of right mastectomy Status post open reduction with internal fixation (ORIF) of fracture of ankle Hx of tonsillectomy Social History Smoking Status: Never smoker second hand exposure: No alcohol intake: never substance use type: does not use caffeine: Yes what type of physical activity do you participate in: none frequency: does not exercise ROS ROS Narrative Denies chest pain, shortness of breath, pain, nausea or vomiting, denies any other acute complaints Physical Exam Narrative General: Alert, oriented, no apparent distress HEENT: Atraumatic, normocephalic Eyes: extraocular movements grossly intact Neck: Supple Respiratory: normal respiratory effort Cardiovascular: no edema appreciated GI: nondistended Extremities: Right upper extremity in sling otherwise moving all extremities Neuro: No overt focal neurological deficits Psych: Cooperative Lab / Micro Data 08/16/24 12:24 08/16/24 12:24 Labs: Laboratory Results - last 24 hr 09/10/24 09:27: POC Glucose 122 H Imaging Radiology Impression Shoulder X-Ray 09/10/24 13:35 IMPRESSION: Status post total reverse shoulder arthroplasty with well-positioned hardware without obvious complication. Reading [facility] Charges/Coding Visit Charges Office Visits / Consults: 67128 OV L2 Est 10min
[2024-09-10] MEDS: Cefazolin 1 GM/50 ML BAG IV (18:39)
[2024-09-11 00:04] VITALS: BP 151/86; PULSE 91; RESP 16; TEMP 36.8; O2SAT 95
[2024-09-11] MEDS: Cefazolin 1 GM/50 ML BAG IV (02:28)
[2024-09-11 04:04] VITALS: BP 159/82; PULSE 53; RESP 16; TEMP 36.6; O2SAT 95
[2024-09-11] MEDS: 0.9% Saline Lock 10 ML Syringe IV (04:44)
[2024-09-11 05:26] LABS: Hematocrit 31.8 % (37-47); Hemoglobin 10.6 g/dL (12.0-15.0); Mean Corp Hgb Conc 33.3 g/dL (32-36); Mean Corpuscular Volume 90.6 fL (81-99); Mean Platelet Vol. 9.8 fl (6.2-12.0); Platelet Count 239 K/mm3 (150-450); RBC Distribution Width CV 14.6 % (11.6-14.6); RBC Distribution Width SD 48.1 fl (35.1-43.9); Red Blood Count 3.51 M/mm3 (4.2-5.4); White Blood Count 15.4 K/mm3 (4.4-11.0)
[2024-09-11 06:11] LABS: Anion Gap 13 (5-15); BUN 18 mg/dL (4-19); BUN/Creat Ratio 18.7 RATIO (10-20); Calcium,Total 8.9 mg/dL (7.6-11.0); Carbon Dioxide 20.7 mmol/L (21.0-32.0); Chloride 103 mmol/L (98-108); Estimated Creatinine Clearance 53.45 ml/min (50-250); Glucose 184 mg/dL (70-99); Potassium 4.3 mmol/L (3.3-5.1)
--- NOTE | 2024-09-11 07:20 | PCM.PN.HOSP ---
Reason for Visit Reason for Visit: Diagnoses Type 2 diabetes mellitus without complications (09/10/24) Encounter for other preprocedural examination (09/10/24) Presence of coronary angioplasty implant and graft (09/10/24) Subjective Subjective Patient with no acute events overnight per self and per nursing report. Patient notes some ongoing discomfort to the right shoulder but primarily with movement and when pain medication wears off. She notes more aching and describes it 4-5 out of 10 in severity. She continues to use ice. She denies any paresthesias in the hand without issue. Patient denies fevers, chills, nausea, emesis, abdominal pain, chest pain or dyspnea. Objective Data Objective Data Vital Signs: Vital Signs Temp Pulse Resp BP Pulse Ox O2 Del Method O2 Flow Rate 98 F 53 L 16 159/82 H 95 Room Air 4 09/11/24 04:04 09/11/24 04:04 09/11/24 04:04 09/11/24 04:04 09/11/24 04:04 09/11/24 04:04 09/10/24 14:45 Oxygen Flow Rate (L/min) 4 Oxygen Delivery Method Room Air Weight: 163 lb 12.855 oz Body Mass Index (BMI) 27.2 Intake & Output: Intake and Output for Last 24 Hours 09/09/24 09/10/24 09/11/24 23:59 23:59 23:59 Intake Total 4905.42 / 4905.42 50 / 50 Output Total 852 / 852 1800 / 1800 Balance 4053.42 / 4053.42 -1750 / -1750 Lab / Micro Data 09/11/24 05:08 09/11/24 05:08 Labs: Laboratory Results - last 24 hr 09/10/24 09:27: POC Glucose 122 H 09/10/24 16:31: POC Glucose 156 H 09/10/24 22:11: POC Glucose 181 H 09/11/24 05:08: WBC 15.4 H, RBC 3.51 L, Hgb 10.6 L, Hct 31.8 L, MCV 90.6, MCH 30.2, MCHC 33.3, RDW Std Deviation 48.1 H, RDW Coeff of Nilda 14.6, Plt Count 239, MPV 9.8, Sodium 137, Potassium 4.3, Chloride 103, Carbon Dioxide 20.7 L, Anion Gap 13, BUN 18, Creatinine 0.96, Estim Creat Clear Calc 53.45, Est GFR (MDRD) Non-Af 63, BUN/Creatinine Ratio 18.7, Glucose 184 H, Calcium 8.9 09/11/24 06:19: POC Glucose 167 H Micro: Microbiology 08/16/24 12:24 Swab (Method) Nasal Screen MRSA/MSSA - Final Radiography Diagnostic Testing: Radiology Impression Shoulder X-Ray 09/10/24 13:35 IMPRESSION: Status post total reverse shoulder arthroplasty with well-positioned hardware without obvious complication. Reading Location: [facility] Physical Exam Narrative Physical Examination: General: Awake, alert, oriented x 3 and cooperative, seated upright in MS bedside chair, notes some discomfort in the right shoulder but improves with pain medication. Skin: Normal color, normal turgor, no icterus, no cyanosis except for occasional stage ecchymoses, abrasion, right shoulder dressing in place with no drainage. HEENT: AT/NC, EOMI, PERRLA, MMM. Lungs: CTA bilaterally, moderate effort, mild decrease BL bases, no rales, ronchi or wheezing. Heart: Regular rate and rhythm; no gallop, rub audible. Abdomen: Soft, overweight, NTTP, ND, normal BS. Extremities: No cyanosis, no clubbing, no marked peripheral edema, right peripheral pulses intact, moving fingers, shoulder dressing in place with no drainage, sling in place. Neurological: Patient awake, alert, oriented as noted, cognitive function intact; pupils equally reactive to light and accommodation, cranial nerves grossly normal, moving all 4 extremities except expected limitation right upper extremity given recent OR, strength accordingly moderately globally decreased. Psychiatric: Affect appears normal, no acute evidence of depressive or anxiety feelings. Assessment & Plan Assessment/Plan (1) Status post reverse total arthroplasty of right shoulder: (2) Anemia: PLAN: Plan The patient is a 74 y/o F w/ PMHx: GERD, CAD/Ischemic cardiomyopathy s/p PCI, CKD stage IIIb, HTN, HLD, Chronic anemia/Fe deficiency anemia, Hx R Breast Ductal Carcinoma CA s/p R mastectomy considered in remission, Hypothyroidism, Severe OA who presents to the [facility] on 09/10/24 for planned R reverse total shoulder replacement per Dr. Garcia secondary to ongoing pain, debility despite outpatient conservative interventions w/ R shoulder primary osteoarthritis with glenoid erosion. #1. Severe Osteoarthritis, R shoulder: Failed conservative therapies and treatments, admitted per Dr. Mckeon, s/p R reverse total shoulder replacement, post-operative pain management, bowel regimen, DVT Prophylaxis, PT/OT/CM per Orthopedic surgery discretion. Once surgery service amenable, strongly recommend reinitiation of plavix therapy in addition to ASA single daily only. #2. CAD/ischemic cardiomyopathy: Status post proximal RCA PCI 03/09/2023, continue aspirin therapy, cleared per cardiology for temporary Plavix hold, resume once clinically allowed per orthopedic surgery, continue statin therapy, Coreg and losartan home regimen. #3. Chronic anemia/Fe deficiencya enmia: Most recent Hgb 11.8, MCV 91.6, baseline Hgb 10-11, 09/11/24 Hgb 10.6, MCV 90.6, continue Fe supplementation, continue to trend per Surgery discretion. #4. Diabetes mellitus type II: Hold oral home regimen, ADA diet, accu checks w/ ISS. #5. History of right ductal breast carcinoma: Noted to have been stage IIIa, status post mastectomy with eventual reconstruction, considered in remission, encourage continued follow-up outpatient as previously arranged. #6. Hypertension: Continue home regimen including losartan, Coreg, spironolactone with hold parameters as needed, PRN hydralazine. #7. Hypothyroidism: Continue patient on levothyroxine regimen. #8. Anxiety and depression: Will continue patient home citalopram regimen. #9. Restless leg syndrome: Will continue patient home Mirapex regimen. #10. GERD: Continue patient on PPI. #11. DVT prophylaxis: SCDs, chemoprophylaxis per surgery discretion given recent OR, currently on ASA 81 mg BID. Charges/Coding Visit Charges Inpatient E&M: 55640 Subs Hosp L2
[2024-09-11 07:53] VITALS: BP 137/60; PULSE 76; RESP 16; TEMP 36.7; O2SAT 93
[2024-09-11 07:55] VITALS: BP 137/60; PULSE 76; RESP 16; TEMP 36.7; O2SAT 93
--- NOTE | 2024-09-11 08:34 | PCM.PN.ORT ---
Subjective Subjective Patient appears to be comfortable in bed. Patient states that her pain is adequately controlled at this time. Patient has not yet worked with physical therapy or occupational therapy. Patient denies any nausea, vomiting, dizziness, lightheadedness. Patient denies any fevers, chills, signs of infection. Patient denies any shortness of breath, chest pain, calf pain. Patient denies any adverse events overnight. Objective Data Objective Data Vital Signs: Vital Signs Temp Pulse Resp BP Pulse Ox O2 Del Method O2 Flow Rate 98.1 F 76 16 137/60 H 93 Room Air 4 09/11/24 07:55 09/11/24 07:55 09/11/24 07:55 09/11/24 07:55 09/11/24 07:55 09/11/24 07:55 09/10/24 14:45 Oxygen Flow Rate (L/min) 4 Oxygen Delivery Method Room Air Weight: 74.3 kg Body Mass Index (BMI) 27.2 Intake & Output: Intake and Output for Last 24 Hours 09/09/24 09/10/24 09/11/24 23:59 23:59 23:59 Intake Total 4905.42 / 4905.42 50 / 50 Output Total 852 / 852 1800 / 1800 Balance 4053.42 / 4053.42 -1750 / -1750 Lab / Micro Data 09/11/24 05:08 09/11/24 05:08 Labs: Laboratory Results - last 24 hr 09/10/24 09:27: POC Glucose 122 H 09/10/24 16:31: POC Glucose 156 H 09/10/24 22:11: POC Glucose 181 H 09/11/24 05:08: WBC 15.4 H, RBC 3.51 L, Hgb 10.6 L, Hct 31.8 L, MCV 90.6, MCH 30.2, MCHC 33.3, RDW Std Deviation 48.1 H, RDW Coeff of Nilda 14.6, Plt Count 239, MPV 9.8, Sodium 137, Potassium 4.3, Chloride 103, Carbon Dioxide 20.7 L, Anion Gap 13, BUN 18, Creatinine 0.96, Estim Creat Clear Calc 53.45, Est GFR (MDRD) Non-Af 63, BUN/Creatinine Ratio 18.7, Glucose 184 H, Calcium 8.9 07/08/25 06:19: POC Glucose 167 H Micro: Microbiology 08/16/24 12:24 Swab (Method) Nasal Screen MRSA/MSSA - Final Radiography Diagnostic Testing: Radiology Impression Shoulder X-Ray 09/10/24 13:35 IMPRESSION: Status post total reverse shoulder arthroplasty with well-positioned hardware without obvious complication. Reading Location: [facility] Physical Exam Narrative Vital signs are stable and afebrile Dressing is clean, dry, intact UltraSling has been appropriately fitted Sensation intact to axillary, radial, median, ulnar nerve distributions Motor intact with patient able to perform okay sign, cross progress, thumbs up. CARROLL hose in place bilaterally. SCDs in place bilaterally. Const alert, oriented x3 and no apparent distress Assessment & Plan Assessment/Plan (1) Status post reverse total arthroplasty of right shoulder: PLAN: Status post right reverse total shoulder arthroplasty day 1 1. DVT prophylaxis: Patient will be on her regular dose of Plavix with addition of aspirin 81 mg twice daily for 4 weeks. Patient was educated that she will be wearing her CARROLL hose for 2 weeks postoperatively. 2. Pain medications: Patient was instructed to take Tylenol 1000 mg every 8 hours [id number] taking no more than 3024 hours. Patient will then be taking oxycodone as needed for postoperative pain control. OARRS report was reviewed today. The risk of abuse potential for narcotic pain medication was discussed and reviewed with patient. 3. Constipation: Patient will be on senna as instructed until first bowel movement to decrease risk of impaction following surgery. Patient was instructed if they have not had a bowel movement in 3 days to contact her office for reevaluation. 4. Physical therapy: Patient is to continue with UltraSling at all times. Patient is okay to take sling off for elbow range of motion, pendulum exercises 2-3 times daily. No range of motion of the operative shoulder for 2 weeks postoperatively. Will begin outpatient physical therapy after the 2-week follow-up appointment at [facility]. 5. Reactive leukocytosis: White blood cell count is currently 15.4. Vital signs are stable and patient is afebrile. Patient did receive Decadron intraoperatively. 6. H&H: 10.6/31.8. Patient was taking ferrous sulfate and folic acid prior to surgery. Will have patient continue taking medications. Will have patient get outpatient labs and follow-up with primary care provider in 1 week for chronic management of anemia. 7. Incentive spirometry: Patient was encouraged to use incentive spirometer every hour that she is awake for the first week to exercise lungs and decrease risk of postoperative infection. 8. Patient is to follow-up per postoperative instructions. 9. Medicine is involved in case at this time. Appreciate recommendations from medicine for safe and proper discharge. 10. Patient does have follow-up appointment scheduled with our office in 2 weeks postoperatively. 11. Patient is okay for discharge if pain is adequately controlled, works with physical therapy and does well, and is okay per medicine doctors instructions. 12. Disposition: Patient is doing well at this time. Patient states that she is ready to go home and get some rest. Patient will start outpatient physical therapy after 2-week follow-up appointment with our office. Patient is to follow-up per postoperative instructions. Patient will continue with ferrous sulfate and folic acid and get labs with primary care provider in roughly 1 week. Patient will continue with UltraSling at all times. There will be no range of motion of operative shoulder for 2 weeks postoperatively. Will follow-up with patient in 2 weeks postoperatively. Patient was encouraged to call with any questions, concerns, new problems.
--- NOTE | 2024-09-11 08:46 | PCM.DC ---
Discharge Instructions Diet Discharge Diet: No restrictions DC O2, CPAP, BIPAP needs Home O2 Discharge instructions: No Dressing / Incision Discharge Activity: - (Use UltraSling at all times. No use of operative shoulder for 2 weeks postoperatively. Okay to take sling off to work on elbow range of motion and pendulum exercises 2-3 times daily. Physical therapy will start after 2-week follow-up appointment.) Weight Bearing Status: No weight bearing (On right shoulder.) Dressing / Incision Call your doctor if your incision/area has: Continuous Slow Oozing, Sudden Increased Bleeding, Increased Pain/ Swelling, Increased Redness, Foul Smelling Discharge and Swelling at the incision site Call your doctor if you observe: Fever of 101 or Higher, Coldness, Increased Pain, Numbness or Tingling, Change in Color, Inability to urinate, Inability to have a bowel movement, Using more than 1 pad per hour, Shortness of breath, Dizziness, Fainting spells, Swelling in the ankles, Chest pain, Increased palpitations (irregular heartbeat), Calf discomfort and Uncontrolled pain Remove Dressing in: 5 days (Patient can remove dressing on postoperative day 5. Steri-Strips are present under the dressing and patient was educated to leave Steri-Strips alone and allow them to fall off on their own.) Cleanse incision/area with: Soap & Water Additional Dressing/Incision Instructions:: No soaking, submerging of incision for 6 weeks postoperatively. No lotions, salves, oils over incisions for 6 weeks postoperatively. OARRS report was checked and reviewed in office today. Follow Up Care Test Results: Test results from this visit will be discussed in further detail at your follow-up appointment, if applicable. Discharge Plan Admission Admit Date/Time: 09/10/24 07:32 Attending Provider: Corey Mckeon Primary Care Provider: Teodoro Farias Consulting Providers: Lisbeth Lopez Discharge Orders/Prescriptions Prescriptions: New acetaminophen 500 mg Tablet 1,000 mg PO Q8H Qty: 0 0RF aspirin 81 mg capsule 81 mg PO BID 30 Days Qty: 60 0RF famotidine 20 mg Tablet 20 mg PO DAILY 30 Days Qty: 30 0RF oxycodone 5 mg Tablet 5 - 10 mg PO Q4H PRN PRN (Reason: As needed for pain) 7 Days Qty: 42 0RF Continued omeprazole 40 mg capsule,delayed release(DR/EC) 40 mg PO DAILY losartan 100 mg tablet 100 mg PO DAILY metformin 500 mg tablet extended release 24 hr 500 mg PO BID calcium carbonate-vitamin D3 [Calcium 600 with Vitamin D3] 600 mg-12.5 mcg (500 unit) capsule 1 cap PO BID pramipexole 0.5 MG tablet 0.5 mg PO BID ytrakhutowli-Nu-nizp-minerals Tablet 1 tab PO DAILY citalopram 20 mg tablet 20 mg PO QHS levothyroxine 125 mcg tablet 125 mcg PO MOTUWETHFRSA ferrous sulfate [Feosol] 325 mg (65 mg iron) tablet 325 mg PO QDAY ascorbic acid (vitamin C) 500 mg capsule 500 mg PO DAILY levothyroxine 125 mcg capsule 62.5 mcg PO DAILY atorvastatin 80 mg tablet 80 mg PO QHS Qty: 90 3RF carvedilol 12.5 mg tablet 12.5 mg PO BID Qty: 180 3RF clopidogrel 75 mg tablet 75 mg PO DAILY Qty: 90 3RF spironolactone 25 mg tablet 25 mg PO DAILY Qty: 30 6RF Held aspirin 81 mg Tablet,Delayed Release (Dr/Ec) 81 mg PO DAILY@0800 Qty: 0 0RF Hold Instructions: Resume on 09/11/24. No Action acetaminophen 500 MG tablet 500 mg PO BID PRN PRN (Reason: Pain Or Fever) Other Ambulatory Orders: 12 Lead EKG (Routine) Timeframe: [id number] Location: None Selected Ordered By: Dr. Corey Mckeon CBC W/Diff, Automated (Routine) Timeframe: 1 Week Facility: [facility] - Location: Laboratory Ordered By: Naty Calvo Referrals / Follow Up: Teodoro Farias MD [Primary Care Provider] - Disposition Disposition (needs filled in before D/C Order can be placed): Home, Self Care
--- NOTE | 2024-09-11 09:15 | CASEMGMT ---
Met with patient to complete MARTINEZ form. MARTINEZ form and its content were verbally explained and patient's questions were answered to the best of my ability.? Patient voiced understanding and signed MARTINEZ form.? Patient provided a copy of signed MARTINEZ form and original placed in patient's chart.? Patient had no further questions. Rand Harris, Discharge Planning Asst
--- NOTE | 2024-09-11 11:42 | CASEMGMT ---
RN DAYAMI spoke with OT, states pt did well. KEESHA STOCK into pt room, pt has left the building.
--- OUTSIDE RECORDS SUMMARY | 2024-09-13 02:18 | XMS RPT_ITS | CCD ---
Author Organization [facility] Care Team Providers Care Meal Grinder Tender Name Role Phone Dr. Akbar Farias Primary Care Provider [phone] Dr. Akbar Farias Referring Provider Dr. Floyd Ahmadi Attending Provider Dr. Akbar Farias Primary Care Provider [phone] Dr. Akbar Farias Referring Provider Dr. Floyd Ahmadi Attending Provider Dr. Leoncio Jorge Emergency Provider Dr. Radha Hammonds Attending Provider Cassius, Dr. Garcia Other Provider Dr. Jon Whiting Admit Provider Unavailabl e Dr. Jon Whiting Other Provider Unavailabl e Dr. Mildred Pedersen Attending Provider Dr. Mildred Pedersen Other Provider Dr. Radha Hammonds Referring Provider Roof TICKET ATTENDANT, TICKET ATTENDANTMicah Pat Attending Provider Dr. Telly Cardoso Attending Provider Dr. Mlidred Pedersen Referring Provider Dr. Akbar Farias Primary Care Provider Dr. Leoncio Jorge Emergency Provider Dr. Radha Hammonds Attending Provider Cassius, Dr. Garcia Referring Provider Cassius, Dr. Garcia Other Provider Dr. Jon Whiting Admit Provider Unavailmalathi Whiting, Dr. Webb Other Provider Unavailabl e Slava, Dr. Levy Attending Provider Dr. Mildred Pedersen Other Provider Dr. Telly Cardoso Attending Provider Dr. Mildred Pedersen Referring Provider Dr. Akbar Farias Referring Provider Ramona TICKET ATTENDANT, TICKET ATTENDANT-Taniya Pat Attending Provider Dr. Teodoro Farias Primary Care Provider Dr. Teodoro Farias Referring Provider Dr. Teodoro Farias Primary Care Provider Dr. Radha Hammonds Attending Provider [phone]([facility])[phone] Dinora RM, Dr. Valerio Primary Care Provider Dr. Teodoro Farias MD Referring Provider [phone] Cassius RM, Dr. Garcia Attending Provider Cassius RM, Dr. Garcia Referring Provider 1([facility])[phone] Dr. Teodoro Farias MD Attending Provider [phone] La RM, Dr. Orozco Attending Provider Mike RM, Dr. Nicole Referring Provider 1([facility]) Mike RM, Dr. Nicole Attending Provider 1([facility]) Teodoro Farias Primary Care Unavailable Corey Mckeon Referring Unavailable Ernesto Tovar Attending Unavailable Radha Hammonds Attending Unavailable Dinora, Christopher Primary Care Unavailable Teodoro Farias Referring Unavailable Radha Hammonds Attending Unavailable Dinora, Christopher Primary Care Unavailable Teodoro Farias Referring Unavailable Dinora, Christopher Primary Care Unavailable Floyd Ahmadi Attending Unavailable Floyd Ahmadi Referring Unavailable Rankaren, Christopher Primary Care Unavailable Dinora, Christpriya Referring Unavailable Floyd Ahmadi Attending Unavailable Teodoro Farias Attending Unavailable Ranney, Christopher Primary Care Unavailable Ranney, Christopher Primary Care Unavailable Prah, Floyd Referring Unavailable Prah, Floyd Attending Unavailable [place], [facility] Prah, Floyd Referring Unavailable Prah, Floyd Attending Unavailable [place], [facility] Unavailable Ranney, Christopher Referring Unavailable Ranney, Christopher Attending Unavailable Cassius, Radha Referring Unavailable Cassius, Radha Attending Unavailable [place], [facility] Unavailable Cassius, Radha Referring Unavailable [place], [facility] Primary Care Unavailable Cassius, Radha Attending Unavailable [place], [facility] Primary Care Unavailable Referred, Self Attending Unavailable [place], [facility] Primary Care Unavailable Referred, Self Attending Unavailable [place], [facility] Primary Care Unavailable Mike, Corey Referring Unavailable Mike, Corey Attending Unavailable Cassius, Radha Attending Unavailable [place], [facility] Primary Care Unavailable Cassius, Radha Referring Unavailable Ranney, Christopher Attending Unavailable [place], [facility] Primary Care Unavailable Ranney, Christopher Referring Unavailable [place], [facility] Primary Care Unavailable Corey Mckeon Referring Unavailable Corey Mckeon Attending Unavailable [place], Sandy Primary Care Unavailable Cassius, Radha Attending Unavailable [place], [facility] Unavailable [place], [facility] Unavailable Ranney, Christopher Referring Unavailable Janae, Telly Attending Unavailable Allergies Allergy Classification Reported Allergen(s) Allergy Type Date of Onset Reaction(s) Facility (18 sources) Penicillins; Translations: [Penicillins] Allergy to substance 02-09-[address] [facility] (17 sources) bee venom protein (honey bee) Allergy to substance 02-09-[address] [facility] (1 source) bee venom protein (honey bee) Drug allergy (disorder) 08-13-[address] [facility] Repository Medications Current Medications Medication Drug Class(es) Dates Sig (Normalized) Sig (Original) acetaminophen 500 mg oral tablet (20 sources) Start: 08-14-2019 take 1 tablet by mouth twice daily as needed for pain Acetaminophen 500 MG tablet Active 500 mg PO TWICE DAILY NEEDED as needed for Pain Or Fever August 14, 2019 12:00am Start: 05-17-2017 End: 05-17-2017 take 1 tablet by mouth every four hours as needed for pain Acetaminophen 500 MG tablet Discontinued 500 mg PO EVERY 4 HOURS NEEDED as needed for Pain 100 May 17, 2017 12:00am May 17, 2017 4:34pm ascorbic acid 500 mg oral capsule (1 source) Vitamin C Start: 08-13-2024 take 1 capsule by mouth once daily Ascorbic Acid (Vitamin C) 500 mg capsule Active 500 mg PO DAILY August 13, 2024 12:00am aspirin 81 mg delayed release oral tablet (11 sources) Platelet Aggregation Inhibitor, Nonsteroidal Anti-inflammatory Drug Start: 03-11-2023 take 1 tablet by mouth once daily Aspirin 81 mg Tablet,Delayed Release (Dr/Ec) Active 81 mg PO DAILY@0800 0 March 11, 2023 1:00am calcium carbonate 1500 mg / cholecalciferol 500 unt oral capsule (20 sources) Vitamin D Start: 07-04-2023 Calcium Carbonate-Neisha min D3 (Calcium 600 With Vitamin D3) 600 mg-12.5 mcg (500 unit) capsule Active 1 NMA PO TWICE A DAY July 04, 2023 1:02pm Start: 04-05-2023 End: 07-04-2023 Calcium Carbonate-Vitamin D3 (Calcium 600 With Vitamin D3) 600 mg-12.5 mcg (500 unit) capsule Discontinued 1 NMA PO DAILY April 05, 2023 1:00am July 04, 2023 1:03pm Start: 05-12-2017 End: 03-10-2023 Calcium Carbonate-Vitamin D3 1 EACH tablet,chewable Discontinued 1 NMA PO TWICE A DAY May 12, 2017 1:00am March 10, 2023 2:51pm Start: 05-12-2017 End: 03-10-2023 Calcium Carbonate-Vitamin D3 Discontinued 1 EACH PO TWICE A DAY May 12, 2017 1:00am March 10, 2023 2:51pm citalopram 20 mg oral tablet (20 sources) Serotonin Reuptake Inhibitor Start: 03-10-2023 take 1 tablet by mouth at bedtime Citalopram 20 mg tablet Active 20 mg PO AT BEDTIME March 10, 2023 1:00am Start: 05-12-2017 End: 01-03-2019 take 1 tablet by mouth at bedtime Citalopram 20 MG tablet Discontinued 20 mg PO AT BEDTIME May 12, 2017 1:00am January 03, 2019 2:35pm ferrous sulfate 325 mg oral tablet (1 source) Start: 08-13-2024 take 1 tablet by mouth once daily Ferrous Sulfate (Feosol) 325 mg (65 mg iron) tablet Active 325 mg PO daily August 13, 2024 12:00am levothyroxine sodium 0.125 mg oral capsule (18 sources) l-Thyroxi ne Start: 08-13-2024 Levothyroxine 125 mc g capsule Active 62.5 ug PO DAILY August 13, 2024 12:00am Start: 03-10-2023 Levothyroxine 125 mcg tablet Active 125 ug PO [facility] March 10, 2023 1:00am Start: 06-02-2016 take 112 ug by mouth once daily Levothyroxine Active 112 MCG PO DAILY June 01, 2016 11:00pm losartan potassium 100 mg oral tablet (20 sources) Angiotensin 2 Receptor Richie Start: 04-05-2023 take 1 tablet by mouth once daily Losartan 100 mg tablet Active 100 mg PO DAILY April 05, 2023 1:00am Start: 08-03-2016 End: 04-05-2023 take 2 tablets by mouth once daily Losartan 50 MG tablet Discontinued 100 mg PO DAILY August 03, 2016 12:00am April 05, 2023 11:13am Start: 08-03-2016 End: 04-05-2023 take 100 mg by mouth once daily Losartan Discontinued 100 MG PO DAILY August 03, 2016 12:00am April 05, 2023 11:13am Start: 08-03-2016 take 50 mg by mouth once daily Losartan Active 50 MG PO DAILY August 02, 2016 11:00pm 24 hr metFORMIN hydrochloride 500 mg extended release oral tablet (20 sources) Biguanide Start: 04-05-2023 take 1 tablet by mouth twice daily Metformin 500 mg tablet extended release 24 hr Active 500 mg PO TWICE A DAY April 05, 2023 12:39pm Start: 04-05-2023 End: 04-05-2023 take 1 tablet by mouth once daily Metformin 500 mg tablet extended release 24 hr Discontinued 500 mg PO DAILY April 05, 2023 1:00am April 05, 2023 12:39pm Start: 02-09-2021 End: 04-05-2023 take 2 tablets by mouth twice daily Metformin 500 mg tablet Discontinued 1000 mg PO TWICE A DAY February 09, 2021 12:20pm April 05, 2023 11:15am Start: 02-09-2021 End: 04-05-2023 take 1000 mg by mouth twice daily Metformin Discontinued 1000 MG PO TWICE A DAY February 09, 2021 12:20pm April 05, 2023 11:15am Start: 06-02-2016 End: 02-09-2021 take 1 tablet by mouth at bedtime Metformin 500 MG tablet Discontinued 500 mg PO AT BEDTIME June 02, 2016 12:00am February 09, 2021 12:20pm Cfyearpswbtp-Vz-Wrgr-Mineral s (16 sources) Start: 07-04-2023 take 1 tablet by mouth once daily Mrtjpehncwse-Dr-Uefg-Minerals Active 1 TABLET PO DAILY July 04, 2023 1:03pm Start: 05-12-2017 End: 07-04-2023 Hpprzjdbvmur-Ys-Tvlr-Mineral s Discontinued 1 EACH PO DAILY May 12, 2017 1:00am July 04, 2023 1:03pm Start: 05-12-2017 Multivitamin-C y-Ahda-Soakxazi Active 1 EACH PO DAILY May 12, 2017 12:00am Start: 05-12-2017 Multivitamin-C n-Jijz-Dhrmelcz Active 1 EACH PO DAILY May 12, 2017 1:00am Wjrpwepdlocj-Jd-Zcqf-Mineral s tablet (3 sources) Start: 07-04-2023 Gsnbpgcowoub-Ii-Olve-Mineral s tablet Active 1 {tbl} PO DAILY July 04, 2023 1:03pm omeprazole 40 mg delayed release oral capsule (20 sources) Proton Pump Inhibit or Start: 04-05-2023 take 1 capsule by mouth once daily Omeprazole 40 mg capsule,delayed release(DR/EC) Active 40 mg PO DAILY April 05, 2023 1:00am Start: 08-03-2016 End: 04-05-2023 take 2 capsules by mouth once daily Omeprazole 20 MG capsule Discontinued 40 mg PO DAILY August 03, 2016 12:00am April 05, 2023 11:12am Start: 08-03-2016 End: 04-05-2023 take 40 mg by mouth once daily Omeprazole Discontinued 40 MG PO DAILY August 03, 2016 12:00am April 05, 2023 11:12am pramipexole dihydrochloride 0.5 mg oral tablet (17 sources) Nonergot Dopamine Agonist Start: 06-02-2016 take 1 tablet by mouth twice daily Pramipexole 0.5 MG tablet Active 0.5 mg PO TWICE A DAY June 02, 2016 12:00am spironolactone 25 mg oral tablet (2 sources) Aldosterone Antagonist Start: 06-29-2024 take 1 tablet by mouth once daily Spironolactone 25 mg tablet Active 25 mg PO DAILY June 29, 2024 12:00am Completed/Discontinued Medications Medication Drug Class(es) Dates Sig (Normalized) Sig (Original) acetaminophen 325 mg / HYDROcodone bitartrate 5 mg oral tablet (17 sources) Opioid Agonist Start: 05-05-2017 End: 05-17-2017 Hydrocodone-Acetami nophen 1 TABLET tablet Discontinued 1 - 2 {tbl} PO EVERY 4 HOURS NEEDED as needed for Pain 24 05May 05, 2017 1:00am May 17, 2017 6:28pm Start: 05-05-2017 End: 05-17-2017 take 1 tablet by mouth every four hours as needed Hydrocodone-Acetaminophen Discontinued 1 - 2 TABLET PO EVERY 4 HOURS NEEDED 24 05May 05, 2017 1:00am May 17, 2017 6:28pm amLODIPine 5 mg oral tablet (17 sources) Dihydropyridine Calcium Channel Richie Start: 08-14-2019 End: 06-05-2024 take 1 tablet by mouth once daily Amlodipine 5 MG tablet Discontinued 5 mg PO DAILY August 14, 2019 12:00am June 05, 2024 2:20pm Apixaban (11 sources) Factor Xa Inhibitor Start: 03-10-2023 End: 03-11-2023 take 1 tablet by mouth every twelve hours, then take 1 tablet by mouth twice daily, then take 5 mg by mouth twice daily Apixaban (Apixaban 5 Mg (74 Tabs) Tablets In A Dose Pack) 5 mg (74 tabs) tablets,dose pack Discontinued 10 mg PO Q12H March 10, 2023 1:00am March 11, 2023 1:54pm pt just had filled. not started yet. to take 10mg bid for 1 week then 5mg bid Start: 03-10-2023 End: 03-11-2023 take 1 tablet by mouth every twelve hours, then take 1 tablet by mouth twice daily, then take 5 mg by mouth twice daily Apixaban (Apixaban 5 Mg (74 Tabs) Tablets In A Dose Pack) 5 mg (74 tabs) tablets,dose pack Discontinued 10 MG PO Q12H March 10, 2023 1:00am March 11, 2023 1:54pm pt just had filled. not started yet. to take 10mg bid for 1 week then 5mg bid Start: 03-10-2023 End: 03-11-2023 take 1 tablet by mouth every twelve hours, then take 1 tablet by mouth twice daily, then take 5 mg by mouth twice daily Apixaban (Apixaban 5 Mg (74 Tabs) Tablets In A Dose Pack) 5 mg (74 tabs) tablets,dose pack Discontinued 10 MG PO Q12H March 10, 2023 12:00am March 11, 2023 12:54pm pt just had filled. not started yet. to take 10mg bid for 1 week then 5mg bid Aspirin, Baby (14 sources) Start: 05-05-2017 End: 05-17-2017 take 81 mg by mouth at bedtime Aspirin, Baby Discontinued 81 MG PO AT BEDTIME May 05, 2017 12:00am May 17, 2017 8:00am Start: 05-05-2017 End: 05-17-2017 take 81 mg by mouth at bedtime Aspirin, Baby Discontin ued 81 MG PO AT BEDTIME May 05, 2017 1:00am May 17, 2017 9:00am Aspirin, Baby 81 MG tablet (3 sources) Start: 05-05-2017 End: 05-17-2017 take 1 tablet by mouth at bedtime Aspirin, Baby 81 MG tablet Discontinued 81 mg PO AT BEDTIME May 05, 2017 1:00am May 17, 2017 9:00am atorvastatin 80 mg oral tablet (20 sources) HMG-CoA Reductase Inhibitor Start: 03-11-2023 End: 01-23-2024 take 1 tablet by mouth at bedtime Atorvastatin 80 mg tablet Discontinued 80 mg PO AT BEDTIME 90 April 05, 2023 12:06pm January 23, 2024 9:37am Start: 06-02-2016 End: 03-11-2023 take 1 tablet by mouth at bedtime Atorvastatin 40 MG tablet Discontinued 40 mg PO AT BEDTIME June 02, 2016 12:00am March 11, 2023 1:25pm calcium carbonate 1250 mg chewable tablet (11 sources) Start: 03-10-2023 End: 04-05-2023 take 1 tablet by mouth once daily Calcium Carbonate (Calcium 500) 500 mg calcium (1,250 mg) tablet,chewable Discontinued 500 mg PO DAILY March 10, 2023 1:00am April 05, 2023 11:15am carvedilol 12.5 mg oral tablet (20 sources) alpha-Adrenergic Richie, beta-Adrenergic Richie Start: 03-11-2023 End: 03-26-2024 take 1 tablet by mouth twice daily Carvedilol 12.5 mg tablet Discontinued 12.5 mg PO TWICE A DAY April 05, 2023 12:07pm March 26, 2024 9:45am clindamycin 150 mg oral capsule (17 sources) Lincosamide Antibacterial Start: 05-17-2017 End: 01-03-2019 take 2 capsules by mouth three times daily Clindamycin Hcl 150 MG capsule Discontinued 300 mg PO THREE TIMES A DAY 12 May 17, 2017 12:00am January 03, 2019 2:36pm Start: 05-17-2017 End: 01-03-2019 take 300 mg by mouth three times daily Clindamycin Hcl Discontinued 300 MG PO THREE TIMES A DAY 12 May 17, 2017 12:00am January 03, 2019 2:36pm clopidogrel 75 mg oral tablet (20 sources) P2Y12 Platelet Inhibitor Start: 03-11-2023 End: 03-26-2024 take 1 tablet by mouth once daily Clopidogrel 75 mg tablet Discontinued 75 mg PO DAILY April 05, 2023 12:07pm March 26, 2024 9:45am hydroCHLOROthiazide 25 mg oral tablet (11 sources) Thiazide Diuretic Start: 03-11-2023 End: 04-05-2023 take 1 tablet by mouth once daily Hydrochlorothiazide 25 mg Tablet Discontinued 25 mg PO DAILY March 11, 2023 1:00am April 05, 2023 12:04pm metoprolol tartrate 50 mg oral tablet (11 sources) beta-Adrenergic Richie Start: 03-10-2023 End: 03-11-2023 take 1 tablet by mouth once daily Metoprolol Tartrate 50 mg tablet Discontinued 50 mg PO DAILY March 10, 2023 1:00am March 11, 2023 1:27pm pt just got filled. not yet started Fjevnfgdpcip-Rd-Ndyh-Mi nerals 1 EACH tablet (3 sources) Start: 05-12-2017 End: 07-04-2023 take 1 tablet by mouth once daily Mpakstdkbcku-Py-Fork-M inerals 1 EACH tablet Discontinued 1 NMA PO DAILY May 12, 2017 1:00am July 04, 2023 1:03pm naproxen sodium 220 mg oral tablet (20 sources) Nonsteroidal Anti-inflammator y Drug Start: 05-17-2017 End: 03-10-2023 take 2 tablets by mouth twice daily at mealtime Naproxen Sodium 220 MG tablet Discontinued 440 mg PO TWICE A DAY 60 May 17, 2017 6:30pm March 10, 2023 3:01pm take with food Start: 05-17-2017 End: 03-10-2023 take 440 mg by mouth twice daily at mealtime Naproxen Sodium Discontinued 440 MG PO TWICE A DAY 60 May 17, 2017 6:30pm March 10, 2023 3:01pm take with food Start: 05-12-2017 End: 05-17-2017 take 2 tablets by mouth once daily Naproxen Sodium (Aleve) 220 MG tablet Discontinued 440 mg PO DAILY May 12, 2017 1:00am May 17, 2017 6:30pm 24 hr niacin 500 mg extended release oral tablet (17 sources) Nicotinic Acid Start: 06-02-2016 End: 03-10-2023 Niacin 500 MG tablet extended release 24 hr Discontinued 1000 mg PO AT BEDTIME June 02, 2016 12:00am March 10, 2023 2:55pm Start: 06-02-2016 End: 03-10-2023 take 1000 mg by mouth at bedtime Niacin Discontinued 1000 MG PO AT BEDTIME June 02, 2016 12:00am March 10, 2023 2:55pm oxyCODONE hydrochloride 5 mg oral tablet (17 sources) Opioid Agonist Start: 05-17-2017 End: 05-17-2017 take 2 tablets by mouth every four hours as needed for pain Oxycodone 5 MG tablet Discontinued 10 mg PO EVERY 4 HOURS NEEDED as needed for Pain 03 06May 17, 2017 12:00am May 17, 2017 4:34pm Start: 05-17-2017 End: 05-17-2017 take 10 mg by mouth every four hours as needed Oxycodone Discontinued 10 MG PO EVERY 4 HOURS NEEDED 30 May 17, 2017 12:00am May 17, 2017 4:34pm Problems Active Problems Problem Classification Problem Date Documented Da te Episodic/Chronic Acute myocardial infarction (15 sources) Myocardial infarction; Translations: [ST elevation (STEMI) myocardial infarction of unspecified site] Onset: 03-07-2023 03-09-2023 Chronic Cancer of breast (20 sources) Infiltrating duct carcinoma of breast; Translations: [Malignant neoplasm of unspecified site of unspecified female breast] Chronic Coronary atherosclerosis and other heart disease (20 sources) Coronary arteriosclerosis; Translations: [Atherosclerotic heart disease of [place] coronary artery without angina pectoris] Onset: 06-05-2024 03-09-2023 Chronic Comment on above: History of inferior ST elevation myocardial infarction in March 2023. Deficiency and other anemia (11 sources) Anemia; Translations: [Anemia, unspecified] 03-10-2023 Episodic Deficiency and other anemia (8 sources) Anemia, unspecified; Translations: [Anemia, unspecified] Onset: 07-16-2024 03-11-2023 Episodic Diabetes mellitus without complication (20 sources) Type 2 diabetes mellitus; Translations: [Type 2 diabetes mellitus without complications] Onset: 06-05-2024 01-03-2019 Chronic Diseases of white blood cells (18 sources) Leukocytosis; Translations: [Elevated white blood cell count, unspecified] 03-10-2023 Chronic Disorders of lipid metabolism (20 sources) Dyslipidemia; Translations: [Hyperlipidemia, unspecified] Onset: 06-05-2024 03-09-2023 Chronic Essential hypertension (20 sources) Hypertensive disorder; Translations: [Essential (primary) hypertension] Onset: 06-05-2024 01-03-2019 Chronic Comment on above: PER PT, CONTROLLED O N MEDS Fracture of lower limb (17 sources) Trimalleolar fracture; Translations: [Displaced trimalleolar fracture of right lower leg, initial encounter for closed fracture] 01-03-2019 Episodic Heart valve disorders (7 sources) Mitral valve regurgitation; Translations: [Nonrheumatic mitral (valve) insufficiency] Onset: 06-05-2024 12-06-2023 Chronic Nonmalignant breast conditions (20 sources) Cyst of breast; Translations: [Solitary cyst of unspecified breast] Episodic Osteoarthritis (1 source) Primary osteoarthritis, right shoulder; Translations: [Primary osteoarthritis, right shoulder] Onset: 08-23-2024 Chronic Other non-epithelial cancer of skin (17 sources) Past history of procedure; Translations: [Personal history of other malignant neoplasm of skin] 01-29-2019 Episodic Comment on above: X2 Residual codes; unclassified (17 sources) Finding related to sleep; Translations: [Sleep apnea, unspecified] 01-03-2019 Chronic Residual codes; unclassified (20 sources) History of ankle surgery; Translations: [Other specified postprocedural states] 01-29-2019 Episodic Comment on above: Right Residual codes; unclassified (1 source) H/O: fracture; Translations: [Other specified postprocedural states] Episodic Residual codes; unclassified (17 sources) History of reconstruction of right breast; Translations: [Other specified postprocedural states] 01-29-2019 Episodic Comment on above: 2011 Residual codes; unclassified (17 sources) History of colonoscopy; Translations: [Other specified postprocedural states] 01-29-2019 Episodic Comment on above: 2015 Residual codes; unclassified (17 sources) History of right mastectomy; Translations: [Acquired absence of right breast and nipple] 01-29-2019 Episodic Comment on above: 2004 Thyroid disorders (20 sources) Hypothyroidism; Translations: [Hypothyroidism, unspecified] 01-03-2019 Chronic Past or Other Problems Problem Classification Problem Date Documented Da te Episodic/Chronic Cancer of breast (20 sources) History of malignant neoplasm of breast; Translations: [Personal history of malignant neoplasm of breast] Onset: 02-09-2024 Episodic Comment on above: Right Breast Cancer Stage IIIA, no evidence of disease clinically.Mammogram 01/24/2023 reviewed, no malignancy. Labs reviewed, within normal limits. Coronary atherosclerosis and other heart disease (20 sources) Stented coronary artery; Translations: [Presence of coronary angioplasty implant and graft] Onset: 03-07-2022 03-10-2023 Episodic Comment on above: Prox RCA- [place] 3 .5x30 mm 03/09/23 Other gastrointestinal disorders (1 source) Diarrhea, unspecified; Translations: [Diarrhea, unspecified] Onset: 11-10-2023 Episodic Other lower respiratory disease (2 sources) Dyspnea, unspecified; Translations: [Dyspnea, unspecified] Onset: 03-19-2024 Episodic Other screening for suspected conditions (not mental disorders or infectious disease) (1 source) Encounter for screening mammogram for malignant neoplasm of breast; Translations: [Encounter for screening mammogram for malignant neoplasm of breast] Onset: 02-21-2024 Episodic Results Test Name Value Interpretation Reference Range Facility Extremity Upper without Cont raon 08-20-2024 Extremity Upper without Contra [facility] [address] [place], [place] [id number] Extremity Upper without Contra MR#: [id number] Acct: [id number] Name: ELOISA TSANG Rep #: [id number] : 1950 F 74 From: Robert Sol MD PCP: Dr. Teodoro Farias MD Status: REG CLI Study: Extremity Upper without Contra Date of Exam: 0 08/20/24 Exam# [id number] Ordering Dr: Corey Mckeon MD PROCEDURE: EXTREMITY UPPER WITHOUT CONTRA 08/20/2024 REASON FOR EXAM: PAIN IN RIGHT SHOULDER TECHNIQUE: EXTREMITY UPPER WITHOUT CONTRA Coronal and Sagittal reconstruction series were provided. One or more dose reduction techniques were used (e.g., Automated exposure control, adjustment of the mA and/or kV according to patient size, use of iterative reconstruction technique RADIATION DOSE SUMMARY: DLP: 631.07 mGycm COMPARISON: None FINDINGS: There is severe osteoarthritis at the glenohumeral articulation with flattening of the articular surfaces, subcortical cyst formation, and marginal osteophytes. There are multiple corticated osteochondral fragments in the axillary recess with the largest measuring 1.5 cm. The AC joint is aligned without evidence of separation. There is a type 3 acromion with impingement configuration. There is mild supraspinatus muscular atrophy visible. There is no visible pathologic adenopathy. Scar is noted in the right middle lobe and right lung apex. Atherosclerotic calcifications are noted. CT/Extremity Upper without Contra IMPRESSION: There is severe osteoarthritis at the glenohumeral articulation with flattening of the articular surfaces, subcortical cyst formation, and marginal osteophytes. There are multiple corticated osteochondral fragments in the axillary recess with the largest measuring 1.5 cm. There is a type 3 acromion with impingement configuration. [facility] CC: Dr. Teodoro Farias MD; Dr. Corey Mckeon MD Auto Service Dispatcher: Signed Normal [facility] MRSA/SAID NASAL SCREENon MRSA+SAID SCRN Reason for Exam: PREOP MRSA MRSA Negative S. AUREUS S. aureus Negative Normal [facility] Comment on above: Performed By: #### L 500.2500, L100.0100, M100.651, L501.1800, L501.5200 #### [facility] [address] [facility] [place], [address] 12 Lead EKGon 08-16-2024 12 Lead EKG [facility] [address] [place] [address] 12 Lead EKG 08/16/24 1233 MR#: [id number] Acct: [id number] Name: ELOISA TSANG Rep #: [id number] : 1950 74 From: Ernesto Tovar MD Attending Dr: Dr. Corey Mckeon MD Status: PRE SDC Ordering Dr: Corey Mckeon MD Date: 08/16/24 [place] [facility] [facility] [place]: F C Admitted: Test Reason : PRE OP Blood Pressure : */* mmHG Vent. Rate : 82 BPM Atrial Rate : 82 BPM P-R Int : 148 ms QRS Dur : 136 ms QT Int : 432 ms P-R-T Axes : 48 -38 96 degrees QTcB Int : 504 ms Normal sinus rhythm Possible Left atrial enlargement Left axis deviation Left bundle branch block Abnormal ECG Confirmed by Ernesto Tovar ([id number]), supervising editor news reel OLIVIA PEREIRA ([id number]) on 08/17/2024 6:44:42 AM Referred By: Corey Mckeon Confirmed By: Ernesto Tovar 08/17/24 0644 Date Ernesto Tovar MD CC: Dr. Teodoro Farias MD; Dr. Corey Mckeon MD Signed Normal [facility] Albumin, Serumon 08-16-2024 Albumin [Mass/Vol] 4.3 g/dL Normal 3.4-4.8 [facility] Comment on above: Performed By: #### L 500.2500, L100.0100, M100.651, L501.1800, L501.5200 #### [facility] [address] [place], [address] Basic Metabolic Profile (BMP )on 08-16-2024 BUN/CRE 20.1 RATIO High 10-[address] [facility] Comment on above: Performed By: #### L 500.2500, L100.0100, M100.651, L501.1800, L501.5200 #### [facility] [address] [place], [address] Calcium [Mass/Vol] 9.3 mg/dL Normal 7.6-11.0 [facility] Comment on above: Performed By: #### L 500.2500, L100.0100, M100.651, L501.1800, L501.5200 #### [facility] [address] [place], [address] Chloride [Moles/Vol] 101 mmol/L Normal 98-108 [facility] Comment on above: Performed By: #### L 500.2500, L100.0100, M100.651, L501.1800, L501.5200 #### [facility] [address] [place], [address] CO2 [Moles/Vol] 22.1 mmol/L Normal 21.0-32.[address] [facility] Comment on above: Performed By: #### L 500.2500, L100.0100, M100.651, L501.1800, L501.5200 #### [facility] [address] [place], [address] Creatinine [Mass/Vol] 0.92 mg/dL Normal 0.70-1.20 [facility] Comment on above: Performed By: #### L 500.2500, L100.0100, M100.651, L501.1800, L501.5200 #### [facility] [address] [place], [address] GAP 14 Normal 5-[address] [facility] Comment on above: Performed By: #### L 500.2500, L100.0100, M100.651, L501.1800, L501.5200 #### [facility] [address] [place], [address] GFR/1.73 sq M.predicted among non-blacks MDRD (S/P/Bld) [Vol rate/Area] 66 mL/min/{1.73_m2} Normal >[address] [facility] Comment on above: Result Comment: mL/m in/1.73m2 CKD-EPI Creatinine Equation (2020) Performed By: #### L 500.2500, L100.0100, M100.651, L501.1800, L501.5200 #### [facility] [address] [place], [address] Glucose [Mass/Vol] 182 mg/dL High 70-99 [facility] Comment on above: Performed By: #### L 500.2500, L100.0100, M100.651, L501.1800, L501.5200 #### [facility] [address] [place], [address] Potassium [Moles/Vol] 4.4 mmol/L Normal 3.3-5.1 [facility] Comment on above: Performed By: #### L 500.2500, L100.0100, M100.651, L501.1800, L501.5200 #### [facility] [address] [place], [address] Sodium [Moles/Vol] 138 mmol/L Normal 133-145 [facility] Comment on above: Performed By: #### L 500.2500, L100.0100, M100.651, L501.1800, L501.5200 #### [facility] [address] [place], [address] Urea nitrogen [Mass/Vol] 19 mg/dL Normal 4-[address] [facility] Comment on above: Performed By: #### L 500.2500, L100.0100, M100.651, L501.1800, L501.5200 #### [facility] [address] [place], [address] CBC W/Diff, Automatedon 08-05 Absolute Lymph 1.42 X10 3/uL Normal 0.83-4.[address] [facility] Comment on above: Performed By: #### L 500.2500, L100.0100, M100.651, L501.1800, L501.5200 #### [facility] [address] [place], [address] Absolute Neut 7.4 X10 3/uL Normal 2.0-7.[address] [facility] Comment on above: Performed By: #### L 500.2500, L100.0100, M100.651, L501.1800, L501.5200 #### [facility] [address] [place], [address] Basophils/100 WBC (Bld) 0.4 % Normal 0-1 [facility] Comment on above: Performed By: #### L 500.2500, L100.0100, M100.651, L501.1800, L501.5200 #### [facility] [address] [place], [address] Eosinophils/100 WBC (Bld) 0.9 % Normal 0-[address] [facility] Comment on above: Performed By: #### L 500.2500, L100.0100, M100.651, L501.1800, L501.5200 #### [facility] [address] [place], [address] Erythrocyte distribution width (RBC) [Ratio] 14.3 % Normal 11.6-14.[address] [facility] Comment on above: Performed By: #### L 500.2500, L100.0100, M100.651, L501.1800, L501.5200 #### [facility] [address] [place], [address] Hematocrit (Bld) [Volume fraction] 36.0 % Low 37-[address] [facility] Comment on above: Performed By: #### L 500.2500, L100.0100, M100.651, L501.1800, L501.5200 #### [facility] [address] [place], [address] Hemoglobin (Bld) [Mass/Vol] 11.8 g/dL Low 12.0-15.[address] [facility] Comment on above: Performed By: #### L 500.2500, L100.0100, M100.651, L501.1800, L501.5200 #### [facility] [address] [place], [address] IG% 0.300 Normal 0.0-0.[address] [facility] Comment on above: Result Comment: IG% - Immature Granulocytes (promyelocytes, myelocytes and metamyelocytes) > 1% indicates that a LEFT SHIFT is Present. Performed By: #### L 500.2500, L100.0100, M100.651, L501.1800, L501.5200 #### [facility] [address] [place], [address] Lymphocytes/100 WBC (Bld) 14.9 % Low 19-[address] [facility] Comment on above: Performed By: #### L 500.2500, L100.0100, M100.651, L501.1800, L501.5200 #### [facility] [address] [place], [address] MCH (RBC) [Entitic mass] 30.0 pg Normal 27.0-32.[address] [facility] Comment on above: Performed By: #### L 500.2500, L100.0100, M100.651, L501.1800, L501.5200 #### [facility] [address] [place], [address] MCHC (RBC) [Mass/Vol] 32.8 g/dL Normal 32-36 [facility] Comment on above: Performed By: #### L 500.2500, L100.0100, M100.651, L501.1800, L501.5200 #### [facility] [address] [place], [address] MCV (RBC) [Entitic vol] 91.6 fL Normal 81-99 [facility] Comment on above: Performed By: #### L 500.2500, L100.0100, M100.651, L501.1800, L501.5200 #### [facility] [address] [place], [address] Monocytes/100 WBC (Bld) 5.4 % Normal 0-10 [facility] Comment on above: Performed By: #### L 500.2500, L100.0100, M100.651, L501.1800, L501.5200 #### [facility] [address] [place], [address] Neutrophils/100 WBC (Bld) 78.1 % High 47-[address] [facility] Comment on above: Performed By: #### L 500.2500, L100.0100, M100.651, L501.1800, L501.5200 #### [facility] [address] [place], [address] Nucleated RBC (Bld) [#/Vol] 0 10*3/uL Normal 0-[address] [facility] Comment on above: Performed By: #### L 500.2500, L100.0100, M100.651, L501.1800, L501.5200 #### [facility] [address] [place], [address] Platelet mean volume (Bld) [Entitic vol] 10.1 fL Normal 6.2-12.[address] [facility] Comment on above: Performed By: #### L 500.2500, L100.0100, M100.651, L501.1800, L501.5200 #### [facility] [address] [place], [address] Platelets (Bld) [#/Vol] 295 10*3/uL Normal 150-[address] [facility] Comment on above: Performed By: #### L 500.2500, L100.0100, M100.651, L501.1800, L501.5200 #### [facility] [address] [place], [address] RBC (Bld) [#/Vol] 3.93 10*6/uL Low 4.2-5.4 [facility] Comment on above: Performed By: #### L 500.2500, L100.0100, M100.651, L501.1800, L501.5200 #### [facility] [address] [place], [address] RDW SD 48.1 fl High 35.1-43.[address] [facility] Comment on above: Performed By: #### L 500.2500, L100.0100, M100.651, L501.1800, L501.5200 #### [facility] [address] [place], [address] WBC (Bld) [#/Vol] 9.5 10*3/uL Normal 4.4-11.0 [facility] Comment on above: Performed By: #### L 500.2500, L100.0100, M100.651, L501.1800, L501.5200 #### [facility] [address] [place], [address] Hemoglobin A1con 08-16-2024 HbA1c (Bld) [Mass fraction] 6.5 % High <=5.[address] [facility] Comment on above: Result Comment: Norm al < 5.7 % Prediabetic 5.7 - 6.4 % Diabetic >or= 6.5 % Please note range changes. Performed By: #### L 501.9985, L501.9520 #### [facility] [address] [facility] [place], [address] MR/PAT.ANEon 08-16-2024 MR/PAT.[facility] Medical Records Department [address] [facility] [place] [address] PAT - Anesthesia 08/16/24 1456 MR#: [id number] Acct: [id number] Name: ELOISA TSANG Rep #: [id number] : 1950 74 From: Bjorn Davis MD PCP: Dr. 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 When Was Last Pacemaker Check QUESTION #4 FULL TEXT: You/Your Family Experience fever (hyperthermia) with Anesthesia Last Oral Intake Last Oral intake: Last Oral Intake NPO since Meds taken in AM with sips of water? Meds patient instructed to take am of surgery PONV PONV - agency manager: PONV - agency manager Female Yes 08/13/24 13:10 HX of Motion Sickness Yes 08/13/24 13:10 HX of N/V After Surgery No 08/13/24 13:10 Non-Smoker Yes 08/13/24 13:10 Duration of Surgery greater Yes 08/13/24 13:10 than 60 minutes Number of Risk Factors 4 08/13/24 13:10 PONV Score Severe Risk 08/13/24 13:10 Height Weight Height Weight: Anesthesia: Height Weight Height 5 ft 5 in 06/05/24 14:25 Respiratory Assessment Respiratory Assessment - agency manager: Respiratory Tract Infection Hx - agency manager Hx Respiratory Tract Infection No 08/13/24 13:10 STOP Sleep Apnea STOP Sleep Apnea - agency manager: STOP Sleep Apnea - agency manager Hx Hypertension Yes: PER PT, CONTROLLED ON 08/13/24 13:10 MED Hx Sleep Apnea No 08/13/24 13:10 CPAP BIPAP Do you snore loudly (louder No 08/13/24 13:10 than talking or can be heard Do you often feel tired/ No 08/13/24 13:10 fatigued/ sleepy during daytime? Has anyone observed you stop No 08/13/24 13:10 breathing during sleep? STOP Results Negative 08/13/24 13:10 QUESTION #5 FULL TEXT : Do you snore loudly (louder than talking or can be heard through closed doors)? 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 Specify any problems Hx of Preganancy in last 3 No 08/13/24 13:10 Months Nurse Filling Out Transfusion MGRIFFITH 08/13/24 13:10 Questions: Date: 08/13/24 08/13/24 13:10 Time: 13:13 08/13/24 13:10 Patient unable to answer at this time (ie. confused, unrespo /Reproducti on History /Reproducti ve History - agency manager: /Reproducti ve Hx- agency manager Hx Now No 08/13/24 13:10 Gestational Age (in weeks): EDC: Hx Hx Para Hx Section SAB PFSH Medical History (Updated 08/13/24 @ 13:23 by Lexie Gerardo) Wears glasses Arthritis Low iron Restless legs Gastric reflux Non-smoker Shortness of breath on exertion History of echocardiogram History of stress test History of Holter monitoring Cardiology follow-up encounter History of heart attack Ischemic cardiomyopathy Atherosclerosis of coronary artery of [place] heart without angina pectoris Stage 3b chronic kidney disease (CKD) Anemia Dyslipidemia ST elevation (STEMI) myocardial infarction ( 03/09/23) Benign breast cyst in female History of breast cancer Breast lump in female Sleep-disordered breathing Trimalleolar fracture of right ankle Hypothyroidism Type 2 diabetes mellitus Hypertension Thyroid disease Hyperlipidemia Depression Skin cancer Breast cancer 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 Home Medications ???Medication ???Instructions ???Recorded ???Last Taken ?? (more content not included)... Normal [facility] Magnesiumon 08-16-2024 Magnesium [Mass/Vol] 1.6 mg/dL Normal 1.5-2.2 [facility] Comment on above: Performed By: #### L 500.2500, L100.0100, M100.651, L501.1800, L501.5200 #### [facility] [address] [facility] [place], [place], [address] Thyroid Stim Hormone (TSH)on 08-16-2024 TSH 1.440 uIU/mL Normal 0.300-4.[address] [facility] Comment on above: Performed By: #### L 501.9985, L501.9520 #### [facility] [address] [facility] [facility] [place], [place], [address] Absolute lymphocyte countOrd ered By: Teodoro Farias on 07-10-2024 Lymphocytes Auto (Unsp spec) [#/Vol] 1.41 10*3/uL 0.83-4.[address] [facility] Absolute neutrophil countOrd ered By: Teodoro Farias on 07-10-2024 Neutrophils (Bld) [#/Vol] 7.1 10*3/uL 2.0-7.[address] [facility] Anion gap in Serum or Plasma Ordered By: Teodoro Farias on 07-10-2024 Anion gap [Moles/Vol] 15 mmol/L 5-15 [facility] Automated lymphocyte count a s percentage of total leukocytesOrdered By: Teodoro Farias on 07-10-2024 Lymphocytes/100 WBC Auto (Unsp spec) 15.1 % Low 19-[address] [facility] BUN/creatinine ratioOrdered By: Teodoro Farias on 07-10-2024 Urea nitrogen/Creatinine [Mass ratio] 23.2 mg/mg High 10- [facility] Basic Metabolic Profile (BMP )on 07-10-2024 BUN/CRE 23.2 RATIO High 10-[address] [facility] Comment on above: Order Comment: PER P ATIENT DO NOT RUN LIPID PANEL DONE IN JUNEOrder Date: 04/12/24Order Info: 666-03 - BMPOrder Info: - LIPIDOrder Info: [id number] - FEOrder Info: [id number] - TABITHA Performed By: #### L 100.0100, L500.2500, L503.6550, L503.6150 ####[facility] [address] [place], [address] Calcium [Mass/Vol] 9.2 mg/dL Normal 7.6-11.0 [facility] Comment on above: Order Comment: PER P ATIENT DO NOT RUN LIPID PANEL DONE IN JUNEOrder Date: 04/12/24Order Info: 666-03 - BMPOrder Info: - LIPIDOrder Info: [id number] - FEOrder Info: [id number] - TABITHA Performed By: #### L 100.0100, L500.2500, L503.6550, L503.6150 ####[facility] [address] [place], [address] Chloride [Moles/Vol] 104 mmol/L Normal 98-108 [facility] Comment on above: Order Comment: PER P ATIENT DO NOT RUN LIPID PANEL DONE IN JUNEOrder Date: 04/12/24Order Info: 666-03 - BMPOrder Info: - LIPIDOrder Info: [id number] - FEOrder Info: [id number] - TABITHA Performed By: #### L 100.0100, L500.2500, L503.6550, L503.6150 ####[facility] [address] [place], [address] CO2 [Moles/Vol] 18.9 mmol/L Low 21.0-32.[address] [facility] Comment on above: Order Comment: PER P ATIENT DO NOT RUN LIPID PANEL DONE IN JUNEOrder Date: 04/12/24Order Info: 666- - BMPOrder Info: [id number] - LIPIDOrder Info: [id number] - FEOrder Info: [id number] - TABITHA Performed By: #### L 100.0100, L500.2500, L503.6550, L503.6150 ####[facility] [address] [place], [address] Creatinine [Mass/Vol] 0.96 mg/dL Normal 0.70-1.20 [facility] Comment on above: Order Comment: PER P ATIENT DO NOT RUN LIPID PANEL DONE IN JUNEOrder Date: 04/12/24Order Info: 666-03 - BMPOrder Info: - LIPIDOrder Info: [id number] - FEOrder Info: [id number] - TABITHA Performed By: #### L 100.0100, L500.2500, L503.6550, L503.6150 ####[facility] [address] [place], [address] GAP 15 Normal 5-[address] [facility] Comment on above: Order Comment: PER P ATIENT DO NOT RUN LIPID PANEL DONE IN JUNEOrder Date: 04/12/24Order Info: 666-03 - BMPOrder Info: [id number] - LIPIDOrder Info: [id number] - FEOrder Info: [id number] - TABITHA Performed By: #### L 100.0100, L500.2500, L503.6550, L503.6150 ####[facility] [address] [place], [address] GFR/1.73 sq M.predicted among non-blacks MDRD (S/P/Bld) [Vol rate/Area] 63 mL/min/{1.73_m2} Normal >[address] [facility] Comment on above: Order Comment: PER P ATIENT DO NOT RUN LIPID PANEL DONE IN JUNEOrder Date: 04/12/24Order Info: 666- - BMPOrder Info: [id number] - LIPIDOrder Info: [id number] - FEOrder Info: [id number] - TABITHA Result Comment: mL/m in/1.73m2 CKD-EPI Creatinine Equation (2020) Performed By: #### L 100.0100, L500.2500, L503.6550, L503.6150 ####[facility] [address] [place], [address] Glucose [Mass/Vol] 154 mg/dL High 70-99 [facility] Comment on above: Order Comment: PER P ATIENT DO NOT RUN LIPID PANEL DONE IN JUNEOrder Date: 04/12/24Order Info: 666-03 - BMPOrder Info: [id number] - LIPIDOrder Info: [id number] - FEOrder Info: [id number] - TABITHA Performed By: #### L 100.0100, L500.2500, L503.6550, L503.6150 ####[facility] [address] [place], [address] Potassium [Moles/Vol] 4.4 mmol/L Normal 3.3-5.1 [facility] Comment on above: Order Comment: PER P ATIENT DO NOT RUN LIPID PANEL DONE IN JUNEOrder Date: 04/12/24Order Info: 666-03 - BMPOrder Info: [id number] - LIPIDOrder Info: [id number] - FEOrder Info: [id number] - TABITHA Performed By: #### L 100.0100, L500.2500, L503.6550, L503.6150 ####[facility] [address] [place], [address] Sodium [Moles/Vol] 137 mmol/L Normal 133-145 [facility] Comment on above: Order Comment: PER P ATIENT DO NOT RUN LIPID PANEL DONE IN JUNEOrder Date: 04/12/24Order Info: 666-03 - BMPOrder Info: - LIPIDOrder Info: [id number] Info: [id number] - TABITHA Performed By: #### L 100.0100, L500.2500, L503.6550, L503.6150 ####[facility] [address] [place], [address] Urea nitrogen [Mass/Vol] 22 mg/dL High 4-[address] [facility] Comment on above: Order Comment: PER P ATIENT DO NOT RUN LIPID PANEL DONE IN JUNEOrder Date: 04/12/24Order Info: 666-03 - BMPOrder Info: - LIPIDOrder Info: [id number] Info: [id number] - TABITHA Performed By: #### L 100.0100, L500.2500, L503.6550, L503.6150 ####[facility] [address] [place], [address] Basophil percentageOrdered B y: Teodoro Farias on 07-10-2024 Basophils/100 WBC (Bld) 0.3 % 0-1 [facility] CBC W/Diff, Automatedon 05-0 Absolute Lymph 1.41 X10 3/uL Normal 0.83-4.[address] [facility] Comment on above: Order Comment: Order Date: 04/12/24 Order Info: [id number] - CBCD Performed By: #### L 100.0100, L500.2500, L503.6550, L503.6150 #### [facility] [address] [place], [address] Absolute Neut 7.1 X10 3/uL Normal 2.0-7.[address] [facility] Comment on above: Order Comment: Order Date: 04/12/24 Order Info: [id number] - CBCD Performed By: #### L 100.0100, L500.2500, L503.6550, L503.6150 #### [facility] [address] [place], [address] Basophils/100 WBC (Bld) 0.3 % Normal 0-1 [facility] Comment on above: Order Comment: Order Date: 04/12/24 Order Info: [id number] - CBCD Performed By: #### L 100.0100, L500.2500, L503.6550, L503.6150 #### [facility] [address] [place], [address] Eosinophils/100 WBC (Bld) 0.9 % Normal 0-[address] [facility] Comment on above: Order Comment: Order Date: 04/12/24 Order Info: [id number] - CBCD Performed By: #### L 100.0100, L500.2500, L503.6550, L503.6150 #### [facility] [address] [place], [address] Erythrocyte distribution width (RBC) [Ratio] 13.9 % Normal 11.6-14.[address] [facility] Comment on above: Order Comment: Order Date: 04/12/24 Order Info: 0184-1 - CBCD Performed By: #### L 100.0100, L500.2500, L503.6550, L503.6150 #### [facility] [address] [place], [address] Hematocrit (Bld) [Volume fraction] 33.2 % Low 37-[address] [facility] Comment on above: Order Comment: Order Date: 04/12/24 Order Info: 0184-1 - CBCD Performed By: #### L 100.0100, L500.2500, L503.6550, L503.6150 #### [facility] [address] [place], [address] Hemoglobin (Bld) [Mass/Vol] 10.8 g/dL Low 12.0-15.[address] [facility] Comment on above: Order Comment: Order Date: 04/12/24 Order Info: [id number] - CBCD Performed By: #### L 100.0100, L500.2500, L503.6550, L503.6150 #### [facility] [address] [place], [address] IG% 0.400 Normal 0.0-0.[address] [facility] Comment on above: Order Comment: Order Date: 04/12/24 Order Info: 0184-1 - CBCD Result Comment: IG% - Immature Granulocytes (promyelocytes, myelocytes and metamyelocytes) > 1% indicates that a LEFT SHIFT is Present. Performed By: #### L 100.0100, L500.2500, L503.6550, L503.6150 #### [facility] [address] [place], [address] Lymphocytes/100 WBC (Bld) 15.1 % Low 19-[address] [facility] Comment on above: Order Comment: Order Date: 04/12/24 Order Info: [id number]- - CBCD Performed By: #### L 100.0100, L500.2500, L503.6550, L503.6150 #### [facility] [address] [place], [address] MCH (RBC) [Entitic mass] 29.7 pg Normal 27.0-32.[address] [facility] Comment on above: Order Comment: Order Date: 04/12/24 Order Info: 0184-1 - CBCD Performed By: #### L 100.0100, L500.2500, L503.6550, L503.6150 #### [facility] [address] [place], [address] MCHC (RBC) [Mass/Vol] 32.5 g/dL Normal 32-36 [facility] Comment on above: Order Comment: Order Date: 04/12/24 Order Info: [id number] - CBCD Performed By: #### L 100.0100, L500.2500, L503.6550, L503.6150 #### [facility] [address] [place], [address] MCV (RBC) [Entitic vol] 91.2 fL Normal 81-99 [facility] Comment on above: Order Comment: Order Date: 04/12/24 Order Info: 0184-1 - CBCD Performed By: #### L 100.0100, L500.2500, L503.6550, L503.6150 #### [facility] [address] [place], [address] Monocytes/100 WBC (Bld) 7.0 % Normal 0-10 [facility] Comment on above: Order Comment: Order Date: 04/12/24 Order Info: [id number] - CBCD Performed By: #### L 100.0100, L500.2500, L503.6550, L503.6150 #### [facility] [address] [place], [address] Neutrophils/100 WBC (Bld) 76.3 % High 47-[address] [facility] Comment on above: Order Comment: Order Date: 04/12/24 Order Info: 0184-1 - CBCD Performed By: #### L 100.0100, L500.2500, L503.6550, L503.6150 #### [facility] [address] [place], [address] Nucleated RBC (Bld) [#/Vol] 0 10*3/uL Normal 0-[address] [facility] Comment on above: Order Comment: Order Date: 04/12/24 Order Info: [id number] - CBCD Performed By: #### L 100.0100, L500.2500, L503.6550, L503.6150 #### [facility] [address] [place], [address] Platelet mean volume (Bld) [Entitic vol] 10.0 fL Normal 6.2-12.[address] [facility] Comment on above: Order Comment: Order Date: 04/12/24 Order Info: 0184-1 - CBCD Performed By: #### L 100.0100, L500.2500, L503.6550, L503.6150 #### [facility] [address] [place], [address] Platelets (Bld) [#/Vol] 307 10*3/uL Normal 150-[address] [facility] Comment on above: Order Comment: Order Date: 04/12/24 Order Info: [id number] - CBCD Performed By: #### L 100.0100, L500.2500, L503.6550, L503.6150 #### [facility] [address] [place], [address] RBC (Bld) [#/Vol] 3.64 10*6/uL Low 4.2-5.4 [facility] Comment on above: Order Comment: Order Date: 04/12/24 Order Info: [id number]- - CBCD Performed By: #### L 100.0100, L500.2500, L503.6550, L503.6150 #### [facility] [address] [place], [address] RDW SD 46.5 fl High 35.1-43.[address] [facility] Comment on above: Order Comment: Order Date: 04/12/24 Order Info: 0184-1 - CBCD Performed By: #### L 100.0100, L500.2500, L503.6550, L503.6150 #### [facility] [address] [place], [address] WBC (Bld) [#/Vol] 9.3 10*3/uL Normal 4.4-11.0 [facility] Comment on above: Order Comment: Order Date: 04/12/24 Order Info: 0184-1 - CBCD Performed By: #### L 100.0100, L500.2500, L503.6550, L503.6150 #### [facility] [address] [place], [address] Carbon dioxide, total [Moles /volume] in Central venous bloodOrdered By: Teodoro Farias on 07-10-2024 CO2 [Moles/Vol] 18.9 mmol/L Low 21.0-32.[address] [facility] Chloride assayOrdered By: Kashif Farias on 07-10-2024 Chloride [Moles/Vol] 104 mmol/L 98-108 [facility] Eosinophil percentageOrdered By: Teodoro Farias on 07-10-2024 Eosinophils/100 WBC (Bld) 0.9 % 0-[address] [facility] Erythrocyte distribution wid th ratioOrdered By: Teodoro Farias on 07-10-2024 Erythrocyte distribution width (RBC) [Ratio] 13.9 % 11.6-14.[address] [facility] Erythrocyte distribution wid th standard deviationOrdered By: Teodoro Farias on 07-10-2024 Erythrocyte distribution width (RBC) [Ratio] 46.5 fl High 35.1-43.[address] [facility] Ferritinon 07-10-2024 Ferritin [Mass/Vol] 18 ng/mL Low 22-378 [facility] Comment on above: Order Comment: PER P ATIENT DO NOT RUN LIPID PANEL DONE IN Date: 04/12/24Order Info: [id number] - BMPOrder Info: [id number] - LIPIDOrder Info: [id number] - FEOrder Info: [id number] - TABITHA Performed By: #### L 100.0100, L500.2500, L503.6550, L503.6150 ####[facility] [address] [place], [place], [id number] Glomerular filtration rate ( GFR) estimation/1.73 sq m using serum, plasma, or whole bOrdered By: Teodoro Farias on 07-10-2024 GFR/1.73 sq M.predicted among non-blacks MDRD (S/P/Bld) [Vol rate/Area] 63 mL/min/{1.73_m2} >[address] [facility] Comment on above: mL/min/1.73m2 CKD-EP I Creatinine Equation (2020) Hematocrit Auto (Bld) [Volum e fraction]Ordered By: Teodoro Farias on 07-10-2024 Hematocrit (Bld) [Volume fraction] 33.2 % Low 37-[address] [facility] Hemoglobin measurementOrdere d By: Teodoro Farias on 07-10-2024 Hemoglobin (Bld) [Mass/Vol] 10.8 g/dL Low 12.0-15.[address] [facility] Immature granulocytes/100 WB C Auto (Bld)Ordered By: Teodoro Farias on 07-10-2024 Immature granulocytes/100 WBC (Bld) 0.400 % 0.0-0.[address] [facility] Comment on above: IG% - Immature Granu locytes (promyelocytes, myelocytes and metamyelocytes) > 1% indicates that a LEFT SHIFT is Present. Ironon 07-10-2024 Iron [Mass/Vol] 42 ug/dL Low 50-[address] [facility] Comment on above: Order Comment: AMBREEN BARRAGAN DO NOT RUN LIPID PANEL DONE IN Date: 04/12/24Order Info: [id number] - BMPOrder Info: [id number] - LIPIDOrder Info: [id number] - FEOrder Info: [id number] - TABITHA Performed By: #### L 100.0100, L500.2500, L503.6550, L503.6150 ####[facility] [address] [place], [address] Iron measurement (mass/mass) Ordered By: Teodoro Farias on 07-10-2024 Iron (Unsp spec) [Mass/Mass] 42 ug/dL Low 50-[address] [facility] MCV (mean corpuscular volume ) determinationOrdered By: Teodoro Farias on 07-10-2024 MCV (RBC) [Entitic vol] 91.2 fL 81-99 [facility] Mean corpuscular hemoglobin (MCH) determinationOrdered By: Teodoro Farias on 07-10-2024 MCH (RBC) [Entitic mass] 29.7 pg 27.0-32.[address] [facility] Mean corpuscular hemoglobin concentration (MCHC) determinationOrdered By: Teodoro Farias on 07-10-2024 MCHC (RBC) [Mass/Vol] 32.5 g/dL 32-36 [facility] Mean platelet volume determi nationOrdered By: Teodoro Farias on 07-10-2024 Platelet mean volume (Bld) [Entitic vol] 10.0 fL 6.2-12.[address] [facility] Monocyte percentageOrdered B y: Teodoro Farias on 07-10-2024 Monocytes/100 WBC (Bld) 7.0 % 0-10 [facility] Neutrophil percentageOrdered By: Teodoro Farias on 07-10-2024 Neutrophils/100 WBC (Bld) 76.3 % High 47-[address] [facility] Nucleated red blood cell per centageOrdered By: Teodoro Farias on 07-10-2024 Nucleated RBC/100 WBC (Bld) [Ratio] 0 % 0-[address] [facility] Platelet countOrdered By: Kashif Farias on 07-10-2024 Platelets (Bld) [#/Vol] 307 10*3/uL 150-[address] [facility] Potassium measurement (mass/ volume)Ordered By: Teodoro Farias on 07-10-2024 Potassium (Unsp spec) [Mass/Vol] 4.4 mmol/L 3.3-5.[address] [facility] RBC Auto (Bld) [#/Vol]Ordere d By: Teodoro Farias on 07-10-2024 RBC (Bld) [#/Vol] 3.64 10*6/uL Low 4.2-5.4 [facility] Serum creatinine measurement (mass/volume)Ordered By: Teodoro Farias on 07-10-2024 Creatinine [Mass/Vol] 0.96 mg/dL 0.70-1.20 [facility] Serum glucose measurement (m ass/volume)Ordered By: Teodoro Farias on 07-10-2024 Glucose [Mass/Vol] 154 mg/dL High 70-99 [facility] Serum or plasma calcium peng urement (mass/volume)Ordered By: Teodoro Farias on 07-10-2024 Calcium [Mass/Vol] 9.2 mg/dL 7.6-11.0 [facility] Serum or plasma ferritin lawanda surement (mass/volume)Ordered By: Teodoro Farias on 07-10-2024 Ferritin [Mass/Vol] 18 ng/mL Low 22-378 [facility] Serum or plasma urea nitroge n measurement (mass/volume)Ordered By: Teodoro Farias on 07-10-2024 Urea nitrogen [Mass/Vol] 22 mg/dL High 4-[address] [facility] Sodium levelOrdered By: Sachin Farias on 07-10-2024 Sodium [Moles/Vol] 137 mmol/L 133-145 [facility] Vitamin D,25 Hydroxyon 07-10 Vitamin D 25-OH 51.5 ng/mL Normal 30-[address] [facility] Comment on above: Order Comment: PER P ATIENT DO NOT RUN LIPID PANEL DONE IN Date: 04/12/24Order Info: [id number] - BMPOrder Info: [id number] - LIPIDOrder Info: [id number] - FEOrder Info: [id number] - TABITHA Result Comment: Neisha min D Status Deficiency: <20 ng/mL (50nmol/L) Insufficiency: 20-30 ng/mL (50-75 nmol/L) Sufficiency: 30-100 ng/mL (75-250 nmol/L) Toxicity: >100 ng/mL (>250 nmol/L) Performed By: #### L 501.9985, L501.9520 #### [facility] [address] [place], [address] White blood cell (WBC) count Ordered By: Teodoro Farias on 07-10-2024 WBC (Bld) [#/Vol] 9.3 10*3/uL 4.4-11.0 [facility] Echo Completeon 06-29-[address] [facility] [address] [address] Echo Complete 06/29/24 1302 MR#: [id number] Acct: [id number] Name: ELOISA TSANG SUE Rep #: [id number] : 1950 74 From: Radha Hammonds MD Attending Dr: Dr. Radha Hammonds MD Status: REG CLI Ordering Dr: Radha Hammonds MD Date: 06/29/24 Location: CVS Sex: F C Admitted: Reason For Study Reason For Study: CAD/ASHD Procedure This was a 2D Doppler, Color Flow transthoracic echocardiogram. Myocardial strain analysis was performed in this exam to aid in the assessment of cardiac function. Exam performed in department. Left Ventricle Mildly dilated left ventricular cavity. Mild LV concentric hypertrophy. Severe LV systolic dysfunction. Generalized hypokinesis. Estimated LVEF 35%. Stage II diastolic dysfunction with elevated left atrial pressures. Right Ventricle Normal right ventricle. Atria The left atrium is moderately enlarged. Normal right atrium. Mitral Valve Moderately severe (3+) mitral valve insufficiency. Tricuspid Valve Mild tricuspid valve insufficiency. Right ventricular systolic pressure estimated to be 39 mmHg. Aortic Valve Trisinus/trileaflet aortic valve. Pulmonic Valve The pulmonic valve is not well visualized. Great Vessels Normal sized aortic root. Pericardium/Pleural No pericardial effusion. MMode/2D Measurements Calculations LVIDd: 5.7 cm IVSd: 1.2 cm LVOT diam: 2.0 cm LVIDs: 5.2 cm LVPWd: 1.3 cm LVOT area: 3.2 cm2 RVDd: 3.2 cm FS: 8.2 % Ao root diam: 2.8 cm LAV(MOD-bp): 66.3 ml LVAd ap4: 32.7 cm2 LAV(MOD-bp) Indexed: 36.6 ml/m2 LVLd ap4: 8.6 cm LAV(MOD-sp2): 63.6 ml EDV(MOD-sp4): 104.9 ml LAV(MOD-sp4): 64.0 ml EDV(sp4-el): 105.6 ml LVAs ap4: 24.1 cm2 LVLs ap4: 7.6 cm ESV(MOD-sp4): 65.4 ml ESV(sp4-el): 64.9 ml EF(MOD-sp4): 37.6 % EF(sp4-el): 38.5 % SV(MOD-sp4): 39.5 ml SV(sp4-el): 40.7 ml LA A4 area: 20.0 cm2 SI(MOD-sp4): 21.8 ml/m2 LA dimension(2D): 4.3 cm RA A4 area: 9.1 cm2 Time Measurements MV dec time: 0.17 sec Doppler Measurements Calculations MV E max sherine: 102.0 cm/sec Lat Peak E' Sherine: 4.8 cm/sec Med Peak E' Sherine: 5.1 cm/sec MV A max sherine: 111.6 cm/sec E/E' lat: 21.1 E/E' med: 20.2 MV E/A: 0.91 MV V2 max: 128.2 cm/sec Ao V2 max: 148.0 cm/sec MV max P.6 mmHg MV dec slope: 602.8 cm/sec2 Ao max P.8 mmHg MV V2 mean: 90.1 cm/sec Ao V2 mean: 102.3 cm/sec MV mean P.5 mmHg Ao mean P.8 mmHg MV V2 VTI: 42.0 cm Ao V2 VTI: 31.9 cm AV (velocity ratio): 0.98 MVA(VTI): 2.4 cm2 TYRON(I,D): 3.1 cm2 TYRON(V,D): 3.1 cm2 LV V1 max: 145.3 cm/sec SV(LVOT): 99.3 ml PA V2 max: 86.5 cm/sec LV V1 max P.4 mmHg PA V2 mean: 62.3 cm/sec LV V1 mean P.7 mmHg LV V1 mean: 100.3 cm/sec LV V1 VTI: 31.2 cm TR max sherine: 292.3 cm/sec TR max P.2 mmHg ECHO/Echo Complete Interpretation Summary Mildly dilated left ventricular cavity. Mild LV concentric hypertrophy. Severe LV systolic dysfunction. Generalized hypokinesis. Estimated LVEF 35%. Stage II diastolic dysfunction with elevated left atrial pressures. The left atrium is moderately enlarged. Moderately severe (3+) mitral valve insufficiency. Mild tricuspid valve insufficiency. Right ventricular systolic pressure estimated to be 39 mmHg. Ordering Physician: Radha Hammonds Referring Physician: Radha Hammonds Performed By: Deepthi Morales RCS 06/29/24 1415 Date Radha Hammonds MD CC: Dr. Radha Hammonds MD; Dr. Teodoro Farias MD Date Dictated: 06/29/24 1302 Date Transcribed: 06/29/24 141 [employer] Dispatcher: Signed Normal [facility] Anion gap in Serum or Plasma Ordered By: Radha Hammonds on 06-11-2024 Anion gap [Moles/Vol] 13 mmol/L 5-15 [facility] BUN/creatinine ratioOrdered By: Radha Hammonds on 06-11-2024 Urea nitrogen/Creatinine [Mass ratio] 18.8 mg/mg 10-[address] [facility] Bilirubin, totalOrdered By: Radha Hammonds on 06-11-2024 Bilirubin [Mass/Vol] 0.47 mg/dL 0.00-1.30 [facility] Calculated very low density lipoprotein (VLDL) cholesterol measurementOrdered By: Radha Hammonds on 06-11-2024 Calculated very low density lipoprotein (VLDL) cholesterol measurement 31 mg/dL - [facility] VLDL Cholesterol 31 mg/dL -[address] [facility] Carbon dioxide, total [Moles /volume] in Central venous bloodOrdered By: Radha Hammonds on 06-11-2024 CO2 [Moles/Vol] 22.4 mmol/L 21.0-32.[address] [facility] Chloride assayOrdered By: Med Hammonds on 06-11-2024 Chloride [Moles/Vol] 104 mmol/L 98-108 [facility] Comprehensive Metabolic Prof ilon 06-11-2024 Albumin [Mass/Vol] 4.1 g/dL Normal 3.4-4.8 [facility] Comment on above: Performed By: #### L 501.9985, L501.20 #### [facility] [address] [place], [address] Albumin/Globulin [Mass ratio] 1.4 {ratio} Normal 0.9-2.[address] [facility] Comment on above: Performed By: #### L 501.9985, L501.9520 #### [facility] [address] [place], [address] ALK PHOS 118 U/L High 35-[address] [facility] Comment on above: Performed By: #### L 501.9985, L501.9520 #### [facility] [address] [place], [address] ALT [Catalytic activity/Vol] 19 U/L Normal <=[address] [facility] Comment on above: Performed By: #### L 501.9985, L501.20 #### [facility] [address] [place], [address] AST [Catalytic activity/Vol] 20 U/L Normal <=[address] [facility] Comment on above: Performed By: #### L 501.9985, L501.9520 #### [facility] [address] [place], [address] Bilirubin [Mass/Vol] 0.47 mg/dL Normal 0.00-1.30 [facility] Comment on above: Performed By: #### L 501.9985, L501.9520 #### [facility] [address] [place], [address] BUN/CRE 18.8 RATIO Normal 10-[address] [facility] Comment on above: Performed By: #### L 501.9985, L501.9520 #### [facility] [address] [place], [address] Calcium [Mass/Vol] 9.2 mg/dL Normal 7.6-11.0 [facility] Comment on above: Performed By: #### L 501.9985, L501.9520 #### [facility] [address] [place], [address] Chloride [Moles/Vol] 104 mmol/L Normal 98-108 [facility] Comment on above: Performed By: #### L 501.9985, L501.9520 #### [facility] [address] [place], [address] CO2 [Moles/Vol] 22.4 mmol/L Normal 21.0-32.[address] [facility] Comment on above: Performed By: #### L 501.9985, L501.9520 #### [facility] [address] [place], [address] Creatinine [Mass/Vol] 0.84 mg/dL Normal 0.70-1.20 [facility] Comment on above: Performed By: #### L 501.9985, L501.9520 #### [facility] [address] [place], [address] GAP 13 Normal 5-[address] [facility] Comment on above: Performed By: #### L 501.9985, L501.9520 #### [facility] [address] [place], [address] GFR/1.73 sq M.predicted among non-blacks MDRD (S/P/Bld) [Vol rate/Area] 74 mL/min/{1.73_m2} Normal >[address] [facility] Comment on above: Result Comment: mL/m in/1.73m2 CKD-EPI Creatinine Equation (2020) Performed By: #### L 501.9985, L501.9520 #### [facility] [address] [place], [address] Globulin (S) [Mass/Vol] 2.9 g/dL Normal 2.2-4.2 [facility] Comment on above: Performed By: #### L 501.9985, L501.9520 #### [facility] [address] [place], [address] Glucose [Mass/Vol] 121 mg/dL High 70-99 [facility] Comment on above: Performed By: #### L 501.9985, L501.9520 #### [facility] [address] [place], [address] Potassium [Moles/Vol] 4.0 mmol/L Normal 3.3-5.1 [facility] Comment on above: Performed By: #### L 501.9985, L501.9520 #### [facility] [address] [place], [address] Sodium [Moles/Vol] 139 mmol/L Normal 133-145 [facility] Comment on above: Performed By: #### L 501.9985, L501.9520 #### [facility] [address] [place], [address] T PROT 6.9 g/dL Normal 5.9-8.[address] [facility] Comment on above: Performed By: #### L 501.9985, L501.9520 #### [facility] [address] [place], [address] Urea nitrogen [Mass/Vol] 16 mg/dL Normal 4-[address] [facility] Comment on above: Performed By: #### L 501.9985, L501.9520 #### [facility] [address] [place], [address] GFR/1.73 sq M.predicted debra g non-blacks MDRD (S/P/Bld) [Vol rate/Area]Ordered By: Radha Hmamonds on 06-11-2024 Estimated GFR (MDRD) Non-Af Amer [address] >[address] [facility] Comment on above: mL/min/1.73m2 CKD-EP I Creatinine Equation (2020) Glomerular filtration rate ( GFR) estimation/1.73 sq m using serum, plasma, or whole bOrdered By: Radha Hammonds on 06-11-2024 GFR/1.73 sq M.predicted among non-blacks MDRD (S/P/Bld) [Vol rate/Area] 74 mL/min/{1.73_m2} >[address] [facility] Comment on above: mL/min/1.73m2 CKD-EP I Creatinine Equation (2020) LDL calc ser/plasOrdered By: Radha Hammonds on 06-11-2024 Cholesterol in LDL [Mass/Vol] 72 mg/dL [facility] Comment on above: Rrmhoqkikd=689-072 m g/dL & Higher Qoyb=956 mg/dL or greater LDL Cholesterol, Calculated 72 mg/dL [facility] Comment on above: Xkqfshpmyy=054-301 m g/dL & Higher Fywj=449 mg/dL or greater Laboratory - Chemistry and C hemistry - challengeOrdered By: Radha Hammonds on 06-11-2024 AST [Catalytic activity/Vol] 20 U/L <[address] [facility] Lipid Profileon 06-11-2024 CHOL:HDL 2.[address] [facility] Comment on above: Performed By: #### L 501.9985, L501.9520 #### [facility] [address] [place], [address] Cholesterol [Mass/Vol] 155 mg/dL Normal <=200 [facility] Comment on above: Result Comment: Chol esterol level, Desirable <200 mg/dL Borderline high cholesterol 200-239 mg/dL High cholesterol >=240 mg/dL Recommendations of the NCEP Adult Treatment Panel for the following risk-cutoff thresholds for the [place] population. Performed By: #### L 501.9985, L501.9520 #### [facility] [address] [place], [address] Cholesterol in HDL [Mass/Vol] 53 mg/dL Normal [facility] Comment on above: Result Comment: Leah onal Cholesterol Education Program (NCEP) guidelines: <40 mg/dL: Low HDL-cholesterol (major risk factor for CHD) >= 60 mg/dL: High HDL-cholesterol (negative risk factor for CHD) HDL-cholesterol is affected by a number of factors, e.g. smoking, exercise, hormones, sex and age. Performed By: #### L 501.9985, L501.9520 #### [facility] [address] [place], [address] Cholesterol in LDL [Mass/Vol] 72 mg/dL Normal [facility] Comment on above: Result Comment: Bord pepztt=272-765 mg/dL Higher Ejfo=715 mg/dL or greater Performed By: #### L 501.9985, L501.9520 #### [facility] [address] [place], [address] Cholesterol in VLDL [Mass/Vol] 31 mg/dL Normal 5-[address] [facility] Comment on above: Performed By: #### L 501.9985, L501.9520 #### [facility] [address] [place], [address] Triglyceride [Mass/Vol] 154 mg/dL Normal [facility] Comment on above: Result Comment: The drugs N-Acetylcysteine and Metamizole may falsely depress this assay. Normal range: <150 mg/dL Borderline High: 150-199 mg/dL High: 200-499 mg/dL Very High: >500 mg/dL Performed By: #### L 501.9985, L501.9520 #### [facility] [address] [place], [address] Potassium (Unsp spec) [Mass/ Vol]Ordered By: Radha Hammonds on 06-11-2024 Potassium [Moles/Vol] 4.0 mmol/L 3.3-5.1 [facility] Potassium measurement (mass/ volume)Ordered By: Radha Hammonds on 06-11-2024 Potassium (Unsp spec) [Mass/Vol] 4.0 mmol/L 3.3-5.[address] [facility] Screening total cholesterol/ high density lipoprotein (HDL) cholesterol ratioOrdered By: Radha Hammonds on 06-11-2024 Cholesterol.total/Choles terol in HDL [Mass ratio] 2.95 {ratio} [facility] Serum creatinine measurement (mass/volume)Ordered By: Radha Hammonds on 06-11-2024 Creatinine [Mass/Vol] 0.84 mg/dL 0.70-1.20 [facility] Serum globulin measurementOr dered By: Radha Hammonds on 06-11-2024 Globulin (S) [Mass/Vol] 2.9 g/dL 2.2-4.2 [facility] Serum glucose measurement (m ass/volume)Ordered By: Radha Hammonds on 06-11-2024 Glucose [Mass/Vol] 121 mg/dL High 70-99 [facility] Serum or plasma alanine urbano otransferase (ALT) measurementOrdered By: Radha Hammonds on 06-11-2024 ALT [Catalytic activity/Vol] 19 U/L <[address] [facility] Serum or plasma albumin peng urement (mass/volume)Ordered By: Radha Hammonds on 06-11-2024 Albumin [Mass/Vol] 4.1 g/dL 3.4-4.8 [facility] Serum or plasma albumin/glob ulin mass ratioOrdered By: Radha Hammonds on 06-11-2024 Albumin/Globulin [Mass ratio] 1.4 {ratio} 0.9-2.[address] [facility] Serum or plasma alkaline reji sphatase measurementOrdered By: Radha Hammonds on 06-11-2024 ALP [Catalytic activity/Vol] 118 U/L High 35-[address] [facility] Serum or plasma calcium peng urement (mass/volume)Ordered By: Radha Hammonds on 06-11-2024 Calcium [Mass/Vol] 9.2 mg/dL 7.6-11.0 [facility] Serum or plasma cholesterol in HDL measurement (mass/volume)Ordered By: Radha Hammonds on 06-11-2024 Cholesterol in HDL [Mass/Vol] 53 mg/dL >[address] [facility] Comment on above: National Cholesterol Education Program (NCEP) guidelines:<40 mg/dL: Low HDL-cholesterol (major risk factor for CHD)>= 60 mg/dL: High HDL-cholesterol (negative risk factor for CHD)HDL-cholesterol is affected by a number of factors, e.g. smoking, exercise, hormones, sex and age. Serum or plasma cholesterol measurement (mass/volume)Ordered By: Radha Hammonds on 06-11-2024 Cholesterol [Mass/Vol] 155 mg/dL <201 [facility] Comment on above: Cholesterol level, D esirable <200 mg/dLBorderline high cholesterol 200-239 mg/dLHigh cholesterol >=240 mg/dLRecommendations of the NCEP Adult Treatment Panel for the following risk-cutoff thresholds for the [place] population. Serum or plasma urea nitroge n measurement (mass/volume)Ordered By: Radha Hammonds on 06-11-2024 Urea nitrogen [Mass/Vol] 16 mg/dL 4-[address] [facility] Sodium levelOrdered By: Ganesh Hammonds on 06-11-2024 Sodium [Moles/Vol] 139 mmol/L 133-145 [facility] Total proteinOrdered By: Chidi Hammonds on 06-11-2024 Protein [Mass/Vol] 6.9 g/dL 5.9-8.4 [facility] Triglycerides measurementOrd ered By: Radha Hammonds on 06-11-2024 Triglyceride [Mass/Vol] 154 mg/dL <199 [facility] Comment on above: The drugs N-Acetylcy steine and Metamizole may falsely depress this assay. Normal range: <150 mg/dLBorderline High: 150-199 mg/dLHigh: 200-499 mg/dLVery High: >500 mg/dL Cardiology Visit Reporton Cardiology Visit Report [facility] [address] [place] [address] OFFICE VISIT Date of Service: 06/05/24 MR#: [id number] Acct: [id number] Name: ELOISA TSANG SUE Rep #: [id number] : 1950 Provider: Dr. Radha Hammonds MD Age/Sex: 74/F Location: [facility] Status: Signed HPI HPI History of Present Illness Details: This lady with history of inferior wall HI in March 2023, status post JHON to the RCA, hypertension, dyslipidemia and diabetes mellitus is here for follow-up visit. Denies any complaints. No chest pains. No shortness of breath. No palpitations. No orthopnea or PND. No ankle edema. Intake Vital Signs 02/09/24 11:11 06/05/24 14:24 06/05/24 14:25 Height 5 ft 5 in 5 ft 5 in 5 ft 5 in Weight: 174 lb 1 oz 164 lb BMI 28.9 27.3 BP 98/62 123/79 H Blood Pressure Location Lt brachial Lt brachial Position Sitting Sitting Respiration 18 16 Pulse 69 87 Pulse Source Monitor NIBP Temp 97.3 F L Temperature Source Temporal Artery Pulse Oximetry (%) 97 Oxygen Delivery Method room air Intake Visit Reasons: 6 M Sweatband Separator Required: No Is patient in pain?: Yes (arthritis; chronic; unchanged) Pain scale (1-10): 6 Allergies Penicillins (PCN) Allergy (Severe, Verified 06/05/24 14:19) Hives bee venom protein (honey bee) Allergy (Verified 06/05/24 14:19) Anaphylaxis Medications ???Medication ???Instructions ???Recorded ???Confirmed ???Type pramipexole 0.5 mg tablet 0.5 mg PO BID restless legs 06/05/24 History acetaminophen 500 mg tablet 500 mg PO BID PRN PRN Pain Or Feve r 08/14/19 02/09/24 History citalopram 20 mg tablet 20 mg PO QHS depression 03/10/23 0 06/05/24 History levothyroxine 125 mcg tablet 125 mcg PO MOTUWETHFRSA thyroid 06/05/24 History aspirin 81 mg tablet,delayed 81 mg PO DAILY@0800 #0 tabs 06/05/24 Rx release losartan 100 mg tablet 100 mg PO DAILY 04/05/23 06/05/24 History metformin 500 mg tablet,extended 500 mg PO BID 04/05/23 06/05/24 Hi story release 24 hr omeprazole 40 mg capsule,delayed 40 mg PO DAILY 04/05/23 06/05/24 H istory release calcium 600 mg (as 1 cap PO BID 07/04/23 06/05/24 His tory carbonate)-vitamin D3 12.5 mcg (500 unit) capsule (Calcium with Vit D3) [id number] -minerals 1 tab PO DAILY vitamin 07/04/23 History atorvastatin 80 mg tablet 80 mg PO QHS #90 tabs 01/23/2403/31 Rx carvedilol 12.5 mg tablet 12.5 mg PO BID #180 tabs 03/26/24 06/05/24 Rx clopidogrel 75 mg tablet 75 mg PO DAILY #90 tabs 03/26/24 0 06/05/24 Rx Ejection fraction %: 55 Have you fallen in the past year?: Yes (tripped on stair; no major injury) PFSH Medical History Anemia Atherosclerosis of coronary artery of [place] heart without angina pectoris Benign breast cyst in female Breast cancer Breast lump in female Depression Ductal carcinoma of breast Dyslipidemia History of breast cancer History of right breast cancer Hyperlipidemia Hypertension Hypothyroidism Ischemic cardiomyopathy Skin cancer Sleep-disordered breathing ST elevation (STEMI) myocardial infarction ( 03/09/23) Stage 3b chronic kidney disease (CKD) Thyroid disease Trimalleolar fracture of right ankle Type 2 diabetes mellitus Surgical History H/O mastectomy History of ankle surgery History of Mohs micrographic surgery for skin cancer History of reconstruction of right breast Hx of colonoscopy Hx of right mastectomy Hx of tonsillectomy Status post open reduction with internal fixation (ORIF) of fracture of ankle Stented coronary artery (03/09/22) Family History Mother Heart disease Breast cancer Lung cancer Hyperlipidemia Arthritis Diabetes Hypertension Kidney disease CAD (coronary artery disease) CABG x4 Father Cancer Sister Diabetes Hypertension Hyperlipidemia Social History Smoking Status: Never smoker second hand exposure: No alcohol intake: never substance use type: does not use caffeine: Yes what type of physical activity do you participate in: none frequency: does not exercise ROS Const Const: Positive for fatigue; Negative for weakness, headache(s) or weight gain ENT ENT: Negative for headache(s), dizziness, Nosebleed/epistaxis or balance problems Cardio Chest Pain: No Palpitations: No Edema: None Muscle aches with walking: None Resp Respiratory: Positive for SOB with activity; Negative for SOB at rest or SOB orthopnea SOB lying down GI GI: Negative nausea, vomiting or heartburn Musc Musc: Negative for muscle (more content not included)... Normal [facility] Stress Reporton 02-15-2024 Stress Report [facility] [address] [place] [address] MR#: [id number] Acct: [id number] Name: ELOISA TSANG Rep #: [id number] : 1950 73 From: Telly Cardoso MD Primary Care: Dr. Teodoro Farias MD Status: REG CLI Referring Dr: Teodoro Farias MD Sex: F C Stress Test Report Pharmacologic myocardial perfusion stress test. 73-year-old lady with a history of coronary disease ischemic cardiomyopathy Resting EKG demonstrates sinus rhythm with a left bundle branch block with a rate of 71 bpm. Resting blood pressure is 106/66 mmHg. 0.4 mg of regadenoson was infused per usual protocol followed by rapid intravenous saline flush injection. Continuous EKG monitoring was performed. The maximum heart rate was 98 bpm which was 65% of max impacted heart rate the maximum workload was 1 metabolic equivalent. At rest there were no ST or T wave changes noted to suggest ischemia and at peak infusion nonspecific ST changes were noted which did not meet the criteria for ischemia. No clinical angina is noted. The final blood pressure was 160/70 mmHg. Myocardial perfusion protocol. 12 point mCi of technetium 99m sestamibi was injected at rest. 0.4 mg of regadenoson was infused per usual protocol. At peak infusion 34.9 mCi of technetium 99m sestamibi was injected stress images were obtained stress and rest images were reconstructed and compared in the short axis vertical long and horizontal long axis. Gated images were also obtained. Perfusion SPECT analysis: Review of the stress images demonstrate normal uptake of tracer noted in all areas of the myocardium with a defect noted in the basal to mid inferior wall as well as the anterior apical wall.. The resting images similar demonstrated no significant improvement in the above distribution suggesting a previous inferior and distal anterior infarct. Minimal favio-infarct ischemia cannot be excluded Gated SPECT analysis: The gated ejection fraction is 62%. Conclusion: pharmacologic myocardial perfusion stress test with previous anterior and inferior infarct and no significant ischemia present. Preserved ejection fraction. 02/15/241613 Date Telly Cardoso MD CC: Dr. eTodoro Farias MD Date Dictated: 02/15/241611 Date Transcribed: 02/15/241611 [employer] Service Dispatcher: [place] Signed Normal [facility] Stool Occult Blood iFOBon STOB Negative Normal [facility] Comment on above: Performed By: #### L 501.9985, L501.9520 #### [facility] [address] [place], [address] CBC W/Diff, Automatedon 12 Absolute Lymph 1.48 X10 3/uL Normal 0.83-4.[address] [facility] Comment on above: Performed By: #### L 501.9985, L501.9520 #### [facility] [address] [place], [address] Absolute Neut 5.8 X10 3/uL Normal 2.0-7.[address] [facility] Comment on above: Performed By: #### L 501.9985, L501.9520 #### [facility] [address] [place], [address] Basophils/100 WBC (Bld) 0.7 % Normal 0-1 [facility] Comment on above: Performed By: #### L 501.9985, L501.9520 #### [facility] [address] [place], [address] Eosinophils/100 WBC (Bld) 1.6 % Normal 0-[address] [facility] Comment on above: Performed By: #### L 501.9985, L501.9520 #### [facility] [address] [place], [address] Erythrocyte distribution width (RBC) [Ratio] 13.3 % Normal 11.6-14.[address] [facility] Comment on above: Performed By: #### L 501.9985, L501.20 #### [facility] [address] [place], [address] Hematocrit (Bld) [Volume fraction] 34.3 % Low 37-[address] [facility] Comment on above: Performed By: #### L 501.9985, L501.20 #### [facility] [address] [place], [address] Hemoglobin (Bld) [Mass/Vol] 11.0 g/dL Low 12.0-15.[address] [facility] Comment on above: Performed By: #### L 501.9985, L501.20 #### [facility] [address] [place], [address] IG% 0.400 Normal 0.0-0.[address] [facility] Comment on above: Result Comment: IG% - Immature Granulocytes (promyelocytes, myelocytes and metamyelocytes) > 1% indicates that a LEFT SHIFT is Present. Performed By: #### L 501.9985, L501.20 #### [facility] [address] [place], [address] Lymphocytes/100 WBC (Bld) 18.0 % Low 19-[address] [facility] Comment on above: Performed By: #### L 501.9985, L501.20 #### [facility] [address] [place], [address] MCH (RBC) [Entitic mass] 29.6 pg Normal 27.0-32.[address] [facility] Comment on above: Performed By: #### L 501.9985, L501.9520 #### [facility] [address] [place], [address] MCHC (RBC) [Mass/Vol] 32.1 g/dL Normal 32-36 [facility] Comment on above: Performed By: #### L 501.9985, L501.9520 #### [facility] [address] [place], [address] MCV (RBC) [Entitic vol] 92.5 fL Normal 81-99 [facility] Comment on above: Performed By: #### L 501.9985, L501.9520 #### [facility] [address] [place], [address] Monocytes/100 WBC (Bld) 9.3 % Normal 0-10 [facility] Comment on above: Performed By: #### L 501.9985, L501.9520 #### [facility] [address] [place], [address] Neutrophils/100 WBC (Bld) 70.0 % Normal 47-[address] [facility] Comment on above: Performed By: #### L 501.9985, L501.9520 #### [facility] [address] [place], [address] Nucleated RBC (Bld) [#/Vol] 0 10*3/uL Normal 0-[address] [facility] Comment on above: Performed By: #### L 501.9985, L501.9520 #### [facility] [address] [place], [address] Platelet mean volume (Bld) [Entitic vol] 10.2 fL Normal 6.2-12.[address] [facility] Comment on above: Performed By: #### L 501.9985, L501.9520 #### [facility] [address] [place], [address] Platelets (Bld) [#/Vol] 300 10*3/uL Normal 150-[address] [facility] Comment on above: Performed By: #### L 501.9985, L501.9520 #### [facility] [address] [place], [address] RBC (Bld) [#/Vol] 3.71 10*6/uL Low 4.2-5.4 [facility] Comment on above: Performed By: #### L 501.9985, L501.9520 #### [facility] [address] [place], [address] RDW SD 45.5 fl High 35.1-43.[address] [facility] Comment on above: Performed By: #### L 501.9985, L501.9520 #### [facility] [address] [place], [address] WBC (Bld) [#/Vol] 8.2 10*3/uL Normal 4.4-11.0 [facility] Comment on above: Performed By: #### L 501.9985, L501.9520 #### [facility] [address] [place], [address] CRPon 02-09-2024 C-REACTIVE PROT < 2.90 Normal 0.0-3.[address] [facility] Comment on above: Result Comment: C-Re active Protein (CRP) provides useful information for the diagnosis, therapy and monitoring of inflammatory processes and associated diseases. For the evaluation of Relative Risk for Cardiovascular Disease, a High Sensitivity CRP (HSCRP) should be ordered. Performed By: #### L 101.9900, L501.2300, L501.6710, L501.5200, L100.9950, L503.6030, L503.6550 ####[facility] [address] [place], [address] Comprehensive Metabolic Prof ilon 02-09-2024 Albumin [Mass/Vol] 3.6 g/dL Normal 3.2-5.0 [facility] Comment on above: Order Comment: 1 Performed By: #### L 501.9985, L501.9520 #### [facility] [address] [place], [address] Albumin/Globulin [Mass ratio] 1.0 {ratio} Normal 0.9-2.[address] [facility] Comment on above: Order Comment: 1 Performed By: #### L 501.9985, L501.9520 #### [facility] [address] [place], [address] ALK P 124 U/L High 45-[address] [facility] Comment on above: Order Comment: 1 Performed By: #### L 501.9985, L501.9520 #### [facility] [address] [place], [address] ALT [Catalytic activity/Vol] 41 U/L Normal 13-[address] [facility] Comment on above: Order Comment: 1 Performed By: #### L 501.9985, L501.9520 #### [facility] [address] [place], [address] AST [Catalytic activity/Vol] 23 U/L Normal 15-[address] [facility] Comment on above: Order Comment: 1 Performed By: #### L 501.9985, L501.9520 #### [facility] [address] [place], [address] Bilirubin [Mass/Vol] 0.50 mg/dL Normal 0.20-1.00 [facility] Comment on above: Order Comment: 1 Result Comment: For patients on eltrombopag therapy, use of Dimension [place] TBIL is not recommended. Performed By: #### L 501.9985, L501.9520 #### [facility] [address] [place], [address] BUN/CRE 17.1 RATIO Normal 10-[address] [facility] Comment on above: Order Comment: 1 Performed By: #### L 501.9985, L501.9520 #### [facility] [address] [place], [address] CA,Total 8.9 mg/dL Normal 8.5-10.[address] [facility] Comment on above: Order Comment: 1 Performed By: #### L 501.9985, L501.9520 #### [facility] [address] [place], [address] Chloride [Moles/Vol] 107 mmol/L Normal 98-107 [facility] Comment on above: Order Comment: 1 Performed By: #### L 501.9985, L501.9520 #### [facility] [address] [place], [address] CO2 [Moles/Vol] 25.0 mmol/L Normal 21.0-32.[address] [facility] Comment on above: Order Comment: 1 Performed By: #### L 501.9985, L501.9520 #### [facility] [address] [place], [address] Creatinine [Mass/Vol] 1.23 mg/dL High 0.55-1.02 [facility] Comment on above: Order Comment: 1 Result Comment: The validity of the calculated GFR GFRAA in patients over 70 years has not been determined. Clinical correlation is essential. Performed By: #### L 501.9985, L501.9520 #### [facility] [address] [place], [address] EST GFR - AA 55 mL/min Low >[address] [facility] Comment on above: Order Comment: 1 Result Comment: Afri can Burmese GFR Calc Performed By: #### L 501.9985, L501.9520 #### [facility] [address] [place], [address] GAP 6 Normal 5-[address] [facility] Comment on above: Order Comment: 1 Performed By: #### L 501.9985, L501.9520 #### [facility] [address] [place], [address] GFR/1.73 sq M.predicted among non-blacks MDRD (S/P/Bld) [Vol rate/Area] 46 mL/min/{1.73_m2} Low >[address] [facility] Comment on above: Order Comment: 1 Result Comment: Non- GFR Calc Performed By: #### L 501.9985, L501.9520 #### [facility] [address] [place], [address] Globulin (S) [Mass/Vol] 3.6 g/dL Normal 2.2-4.2 [facility] Comment on above: Order Comment: 1 Performed By: #### L 501.9985, L501.9520 #### [facility] [address] [place], [address] Glucose [Mass/Vol] 177 mg/dL High 74-106 [facility] Comment on above: Order Comment: 1 Result Comment: Fast ing Glucose result greater than or equal to 126 mg/dL suggests DIABETES MELLITUS per A.D.A. criteria. Performed By: #### L 501.9985, L501.9520 #### [facility] [address] [place], [address] Potassium [Moles/Vol] 4.3 mmol/L Normal 3.5-5.1 [facility] Comment on above: Order Comment: 1 Performed By: #### L 501.9985, L501.20 #### [facility] [address] [place], [address] Sodium [Moles/Vol] 139 mmol/L Normal 136-145 [facility] Comment on above: Order Comment: 1 Performed By: #### L 501.9985, L501.9520 #### [facility] [address] [place], [address] T PROT 7.2 g/dL Normal 6.4-8.[address] [facility] Comment on above: Order Comment: 1 Performed By: #### L 501.9985, L501.20 #### [facility] [address] [place], [address] Urea nitrogen [Mass/Vol] 21 mg/dL High 7-[address] [facility] Comment on above: Order Comment: 1 Performed By: #### L 501.9985, L501.9520 #### [facility] [address] [place], [address] Erythrocyte Sed Rateon 02-08 SED RATE 7 mm/hr Normal 0-[address] [facility] Comment on above: Performed By: #### L 101.9900, L501.2300, L501.6710, L501.5200, L100.9950, L503.6030, L503.6550 ####[facility] [address] [place], [address] Ferritinon 02-09-2024 Ferritin [Mass/Vol] 10 ng/mL Normal 8-252 [facility] Comment on above: Performed By: #### L 101.9900, L501.2300, L501.6710, L501.5200, L100.9950, L503.6030, L503.6550 ####[facility] [address] [place], [address] Iron+Iron Binding Capacityon 02-09-2024 Iron [Mass/Vol] 52 ug/dL Normal 50-[address] [facility] Comment on above: Performed By: #### L 101.9900, L501.2300, L501.6710, L501.5200, L100.9950, L503.6030, L503.6550 ####[facility] [address] [place], [address] IRON SATURATION 13.8 Low 15.0-55.[address] [facility] Comment on above: Performed By: #### L 101.9900, L501.2300, L501.6710, L501.5200, L100.9950, L503.6030, L503.6550 ####[facility] [address] [place], [address] TIBC 377 ug/dL Normal 250-[address] [facility] Comment on above: Performed By: #### L 101.9900, L501.2300, L501.6710, L501.5200, L100.9950, L503.6030, L503.6550 ####[facility] [address] [place], [address] LDHon 02-09-2024 LDH 169 U/L Normal 84-[address] [facility] Comment on above: Order Comment: 1 Performed By: #### L 501.9985, L501.9520 #### [facility] [address] [place], [address] Magnesiumon 02-09-2024 Magnesium [Mass/Vol] 1.7 mg/dL Normal 1.6-2.6 [facility] Comment on above: Performed By: #### L 101.9900, L501.2300, L501.6710, L501.5200, L100.9950, L503.6030, L503.6550 ####[facility] [address] [place], [address] Oncology Visit Reporton Oncology Visit Report [facility] [address] [place] [address] OFFICE VISIT Date of Service: 02/09/24 1111 MR#: [id number] Acct: [id number] Name: ELOISA TSANG SUE Rep #: [id number] : 1950 From: Floyd Ahmadi MD Age/Sex: 73/F Location: [facility] Status: Signed HPI Subjective Date of Service 01/31/23 Chief Complaint Follow-up for R breast cancer. History of Present Illness Ms. 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 She is s/p MRM and axillary dissection. Biology of her disease proved ER positive, SD negative, HER2 negative. She completed 4 cycles of dose dense AC and 4 cycles of Taxol 06/10/2005. Radiation therapy completed 10/08/2005. On Arimidex 06/24/2005 to 07/04/2010. A bone scan was requested 02/2017 to address complaints of joint pain. Bone scan demonstrated no evidence of skeletal metastatic disease, only DJD. She feels something in the L breast, had mammogram on 12/29/2018 which showed no masses. US on 12/29/2018 showed 7mm cyst at the 6 O'clock position in the left breast. Was seen by Dr. Jim and observation was recommended. She comes for follow up. Feels well. [facility] Medical History Ischemic cardiomyopathy Atherosclerosis of coronary artery of [place] heart without angina pectoris Stage 3b chronic kidney disease (CKD) Anemia Dyslipidemia ST elevation (STEMI) myocardial infarction ( 03/09/23) Benign breast cyst in female History of breast cancer Breast lump in female Sleep-disordered breathing Trimalleolar fracture of right ankle Hypothyroidism Type 2 diabetes mellitus Hypertension Thyroid disease Hyperlipidemia Depression Skin cancer Breast cancer 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 Surgical History Stented coronary artery (03/09/22) Hx of colonoscopy History of ankle surgery History of Mohs micrographic surgery for skin cancer History of reconstruction of right breast Hx of right mastectomy Status post open reduction with internal fixation (ORIF) of fracture of ankle Hx of tonsillectomy H/O mastectomy Family History Mother Heart disease Breast cancer Lung cancer Hyperlipidemia Arthritis Diabetes Hypertension Kidney disease CAD (coronary artery disease) CABG x4 Father Cancer Sister Diabetes Hypertension Hyperlipidemia Social History Smoking Status: Never smoker second hand exposure: No alcohol intake: never substance use type: does not use caffeine: Yes what type of physical activity do you participate in: none frequency: does not exercise ROS Constitutional Constitutional: Reports systems reviewed and no addt'l complaints, except as documented Eyes Eyes: Reports systems reviewed and no addt'l complaints, except as documented ENT HEENT: Reports systems reviewed and no addt'l complaints, except as documented Cardiovascular Cardiovascular: Reports systems reviewed and no addt'l complaints, except as documented Respiratory/Chest Respiratory/Chest: Reports systems reviewed and no addt'l complaints, except as documented Gastrointestinal Gastrointestinal: Reports systems reviewed and no addt'l complaints, except as documented Genitourinary Genitourinary: Reports systems reviewed and no addt'l complaints, except as documented Musculoskeletal Musculoskeletal: Reports systems reviewed and no addt'l complaints, except as documented Integumentary Integumentary: Reports systems reviewed and no addt'l complaints, except as documented Neurologic Neurologic: Reports systems reviewed and no addt'l complaints, except as documented Psychiatric Psychiatric: Reports systems reviewed and no addt'l complaints, except as documented Endocrine Endocrinology: Reports systems reviewed and no addt'l complaints, except as documented Hematologic/Lymphati c Hematologic/Lymphati c: Reports systems reviewed and no addt'l complaints, except as documented Allergic/Immunologic Allergic/Immunologic : Reports systems reviewed and no addt'l complaints, except as documented Intake Vital Signs 07/04/23 12:57 12/06/23 08:35 02/09/24 11:11 Height 5 ft 5 in 5 ft 5 in 5 ft 5 in Weight: 78.953 kg BMI 28.9 BP 98/62 Blood Pressure Location Lt brachial Position Sitting Respiration 18 Pulse 69 Pulse Source Monitor Temp 97.3 F L Temperature Source Temporal Artery Pulse Oximetry (%) 97 Oxygen Delivery Method room air Intake Is patient in pain?: No Allergies Penicillins (PCN) Allergy (Severe, Verified 02/09/24 11:13) Hive (more content not included)... Normal [facility] Phosphoruson 02-09-2024 Phosphate [Mass/Vol] 4.5 mg/dL Normal 2.5-4.9 [facility] Comment on above: Performed By: #### L 101.9900, L501.2300, L501.6710, L501.5200, L100.9950, L503.6030, L503.6550 ####[facility] [address] [place], [place], [phone] Retic Panelon 02-09-2024 IM RET FRACTION 9.50 Normal 3.00-15.[address] [facility] Comment on above: Performed By: #### L 101.9900, L501.2300, L501.6710, L501.5200, L100.9950, L503.6030, L503.6550 ####[facility] [address] [place], [address] RET-HE 32.7 pg Normal 30-[address] [facility] Comment on above: Performed By: #### L 101.9900, L501.2300, L501.6710, L501.5200, L100.9950, L503.6030, L503.6550 ####[facility] [address] [place], [address] Retic Count 1.51 High 0.5-1.[address] [facility] Comment on above: Performed By: #### L 101.9900, L501.2300, L501.6710, L501.5200, L100.9950, L503.6030, L503.6550 ####[facility] [address] [place], [address] SCREEN MAMM (CAD) W/HILARY UNI Tucker 01-26-2024 SCREEN MAMM (CAD) W/HILARY UNI L [facility] [address] [place], [place] [id number] [phone] SCREEN MAMM (CAD) W/HILARY UNI L MR#: [id number] Acct: [id number] Name: ELOISA TSANG SUE Rep #: [id number] : 1950 F 73 From: Doug castellanos MD PCP: Dr. Teodoro Farias MD Status: [facility] Study: SCREEN MAMM (CAD) W/HILARY UNI L Date of Exam: 03/27/23 Exam# [id number] Ordering Dr: Floyd Ahmadi MD [id number] MAMMOGRAPHY - UNILATERAL SCREENING: LEFT BREAST REASON FOR EXAM: Female, 73 years old. Routine annual screening examination (unilateral). PERTINENT HISTORY: Personal history of breast cancer. Prior right mastectomy with radiation and chemotherapy. Mother with breast cancer. TECHNIQUE: Digital unilateral breast hilary (3D mammographic acquisition) in the CC and MLO projections. 2-D mediolateral oblique (MLO) and craniocaudad (CC) views of both breasts were obtained. CAD: Full Field Digital Mammography with Computer Added Detection was performed. COMPARISON: Comparison is made with prior study January 24, 2023 and January 22, 2022. FINDINGS: Breast Composition: The breasts are heterogeneously dense, which may obscure small masses. There are no dominant masses or suspicious calcifications. No other significant abnormalities are identified. There has been no significant change since the prior study. BI/SCREEN MAMM (CAD) W/HILARY UNI L IMPRESSION: Stable unilateral screening mammogram. Yearly follow-up mammogram recommended. (A) ASSESSMENT CATEGORY: BIRADS Category 1: Negative. A letter regarding these results will be sent to the patient by the facility within 30 days. Approximately 10% of breast cancers are not detected by mammography. A normal mammogram should not delay biopsy of a clinically suspicious abnormality. [id number] Electronically Signed: Doug Kennedy MD at 11:26 EST , CC: Dr. Teodoro Farias MD; Dr. Floyd Ahmadi MD Auto Service Dispatcher: Signed Normal [facility] CPK Total, Creatine Kinaseon 12-09-2023 CPK TOTAL 73 U/L Normal 26-[address] [facility] Comment on above: Performed By: #### L 501.9985, L501.9520 #### [facility] [address] [place], [address] Comprehensive Metabolic Prof ilon 12-09-2023 Albumin [Mass/Vol] 3.6 g/dL Normal 3.2-5.0 [facility] Comment on above: Performed By: #### L 501.9985, L501.9520 #### [facility] [address] [place], [address] Albumin/Globulin [Mass ratio] 1.0 {ratio} Normal 0.9-2.[address] [facility] Comment on above: Performed By: #### L 501.9985, [id number] #### [facility] [address] [place], [address] ALK P 125 U/L High 45-[address] [facility] Comment on above: Performed By: #### L 501.9985, [id number] #### [facility] [address] [place], [address] ALT [Catalytic activity/Vol] 22 U/L Normal 13-[address] [facility] Comment on above: Performed By: #### L 501.9985, [id number] #### [facility] [address] [place], [address] AST [Catalytic activity/Vol] 13 U/L Low 15-[address] [facility] Comment on above: Performed By: #### L 501.9985, [id number] #### [facility] [address] [place], [address] Bilirubin [Mass/Vol] 0.50 mg/dL Normal 0.20-1.00 [facility] Comment on above: Result Comment: For patients on eltrombopag therapy, use of Dimension [place] TBIL is not recommended. Performed By: #### L 501.9985, [id number] #### [facility] [address] [place], [address] BUN/CRE 17.7 RATIO Normal 10-[address] [facility] Comment on above: Performed By: #### L 501.9985, [id number] #### [facility] [address] [place], [address] CA,Total 9.3 mg/dL Normal 8.5-10.[address] [facility] Comment on above: Performed By: #### L 501.9985, [id number] #### [facility] [address] [place], [address] Chloride [Moles/Vol] 106 mmol/L Normal 98-107 [facility] Comment on above: Performed By: #### L 501.9985, [id number] #### [facility] [address] [place], [address] CO2 [Moles/Vol] 27.0 mmol/L Normal 21.0-32.[address] [facility] Comment on above: Performed By: #### L 501.9985, [id number] #### [facility] [address] [place], [address] Creatinine [Mass/Vol] 1.13 mg/dL High 0.55-1.02 [facility] Comment on above: Result Comment: The validity of the calculated GFR GFRAA in patients over 70 years has not been determined. Clinical correlation is essential. Performed By: #### L 501.9985, L501.9520 #### [facility] [address] [place], [address] EST GFR - AA 61 mL/min Normal >[address] [facility] Comment on above: Result Comment: Afri can Burmese GFR Calc Performed By: #### L 501.9985, [id number] #### [facility] [address] [place], [address] GAP 6 Normal 5-[address] [facility] Comment on above: Performed By: #### L 501.9985, [id number] #### [facility] [address] [place] [place], [address] GFR/1.73 sq M.predicted among non-blacks MDRD (S/P/Bld) [Vol rate/Area] 50 mL/min/{1.73_m2} Low >[address] [facility] Comment on above: Result Comment: Non- GFR Calc Performed By: #### L 501.9985, L501.9520 #### [facility] [address] [place] [place], [address] Globulin (S) [Mass/Vol] 3.6 g/dL Normal 2.2-4.2 [facility] Comment on above: Performed By: #### L 501.9985, [id number] #### [facility] [address] [place], [address] Glucose [Mass/Vol] 177 mg/dL High 74-106 [facility] Comment on above: Result Comment: Fast ing Glucose result greater than or equal to 126 mg/dL suggests DIABETES MELLITUS per A.D.A. criteria. Performed By: #### L 501.9985, L501.9520 #### [facility] [address] [place], [address] Potassium [Moles/Vol] 3.7 mmol/L Normal 3.5-5.1 [facility] Comment on above: Performed By: #### L 501.9985, [id number] #### [facility] [address] [place] [place], [address] Sodium [Moles/Vol] 139 mmol/L Normal 136-145 [facility] Comment on above: Performed By: #### L 501.9985, [id number] #### [facility] [address] [place], [address] T PROT 7.2 g/dL Normal 6.4-8.[address] [facility] Comment on above: Performed By: #### L 501.9985, [id number] #### [facility] [address] [place], [address] Urea nitrogen [Mass/Vol] 20 mg/dL High 7-[address] [facility] Comment on above: Performed By: #### L 501.9985, [id number] #### [facility] [address] [place], [address] Lipid Profileon 12-09-2023 Cholesterol [Mass/Vol] 177 mg/dL Normal 200 [facility] Comment on above: Result Comment: <200 mg/dL Desirable 200-240 mg/dL Borderline >240 mg/dL High Risk Performed By: #### L 501.9985, [id number] #### [facility] [address] [place], [address] Cholesterol in HDL [Mass/Vol] 55 mg/dL Normal [facility] Comment on above: Result Comment: The drugs N-Acetylcysteine and Metamizole may falsely depress this assay. Reference Range HDL <40 mg/dL Low HDL Cholesterol HDL >or= 60 mg/dL High HDL Cholesterol Performed By: #### L 501.9985, [id number] #### [facility] [address] [place], [address] Cholesterol in LDL [Mass/Vol] 68 mg/dL Normal 0-[address] [facility] Comment on above: Performed By: #### L 501.9985, [id number] #### [facility] [address] [place], [address] Cholesterol in VLDL [Mass/Vol] 54 mg/dL High 5-[address] [facility] Comment on above: Performed By: #### L 501.9985, [id number] #### [facility] [address] [place], [address] Triglyceride [Mass/Vol] 268 mg/dL High [facility] Comment on above: Result Comment: The drugs N-Acetylcysteine and Metamizole may falsely depress this assay. Serum Triglycerides Reference Interval Normal <150 mg/dL Borderline high 150 - 199 mg/dL High 200 - 499 mg/dL Very High > or = 500 mg/dL Performed By: #### L 501.9985, L501.9520 #### [facility] [address] [place], [address] Cardiology Visit Reporton Cardiology Visit Report [facility] [address] [place] [address] OFFICE VISIT Date of Service: 12/06/23 MR#: [id number] Acct: [id number] Name: ELOISA TSANG SUE Rep #: [id number] : 1950 Provider: Dr. Radha Hammonds MD Age/Sex: 73/F Location: [facility] Status: Signed HPI [facility] History of Present Illness Details: Eloisa is here for follow-up visit. Denies any angina. No shortness of breath. No complaints today. Intake Vital Signs 07/04/23 12:57 12/06/23 08:35 Height 5 ft 5 in 5 ft 5 in Weight: 180 lb BMI 29.9 BP 103/64 Blood Pressure Location Lt brachial Position Sitting Respiration 16 Pulse 71 Pulse Source NIBP Intake Visit Reasons: 6 M FU Sweatband Separator Required: No Accompanied by: Self Allergies Penicillins (PCN) Allergy (Severe, Verified 12/06/23 13:47) Hives bee venom protein (honey bee) Allergy (Verified 12/06/23 13:47) Anaphylaxis Medications ???Medication ???Instructions ???Recorded ???Confirmed ???Type pramipexole 0.5 mg tablet 0.5 mg PO BID restless legs 06/02/16 12/06/23 History acetaminophen 500 mg tablet 500 mg PO BID PRN PRN Pain Or Fever 08/14/19 07/04/23 History amlodipine 5 mg tablet 5 mg PO DAILY 08/14/19 12/06/23 History citalopram 20 mg tablet 20 mg PO QHS depression 03/10/23 12/06/23 History levothyroxine 125 mcg tablet 125 mcg PO MOTUWETHFRSA thyroid 03/10/23 12/06/23 History aspirin 81 mg tablet,delayed 81 mg PO DAILY@0800 #0 tabs 03/11/23 12/06/23 Rx release atorvastatin 80 mg tablet 80 mg PO QHS #90 tabs 04/05/23 12/06/23 Rx carvedilol 12.5 mg tablet 12.5 mg PO BID #180 tabs 04/05/23 12/06/23 Rx clopidogrel 75 mg tablet 75 mg PO DAILY #90 tabs 04/05/23 12/06/23 Rx losartan 100 mg tablet 100 mg PO DAILY 04/05/23 12/06/23 History metformin 500 mg tablet,extended 500 mg PO BID 04/05/23 12/06/23 History release 24 hr omeprazole 40 mg capsule,delayed 40 mg PO DAILY 04/05/23 12/06/23 History release calcium 600 mg (as 1 cap PO BID 07/04/23 12/06/23 History carbonate)-vitamin D3 12.5 mcg (500 unit) capsule (Calcium with Vit D3) [id number] -minerals 1 tab PO DAILY vitamin 07/04/23 12/06/23 History Ejection fraction %: 55 Have you fallen in the past year?: No [facility] Medical History (Updated 12/06/23 @ 14:[address] Radha Hammonds MD) Ischemic cardiomyopathy Atherosclerosis of coronary artery of [place] heart without angina pectoris Stage 3b chronic kidney disease (CKD) Anemia Dyslipidemia ST elevation (STEMI) myocardial infarction ( 03/09/23) Benign breast cyst in female History of breast cancer Breast lump in female Sleep-disordered breathing Trimalleolar fracture of right ankle Hypothyroidism Type 2 diabetes mellitus Hypertension Thyroid disease Hyperlipidemia Depression Skin cancer Breast cancer 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 Surgical History Stented coronary artery (03/09/22) Hx of colonoscopy History of ankle surgery History of Mohs micrographic surgery for skin cancer History of reconstruction of right breast Hx of right mastectomy Status post open reduction with internal fixation (ORIF) of fracture of ankle Hx of tonsillectomy H/O mastectomy Family History Mother Heart disease Breast cancer Lung cancer Hyperlipidemia Arthritis Diabetes Hypertension Kidney disease CAD (coronary artery disease) CABG x4 Father Cancer Sister Diabetes Hypertension Hyperlipidemia Social History Smoking Status: Never smoker second hand exposure: No alcohol intake: never substance use type: does not use caffeine: Yes what type of physical activity do you participate in: none frequency: does not exercise ROS Const Const: Negative for fatigue, weakness, headache(s) or weight gain ENT ENT: Negative for headache(s), dizziness, Nosebleed/epistaxis, balance problems or dry mouth Cardio Chest Pain: No Palpitations: No Edema: None Muscle aches with walking: None Resp Respiratory: Positive for SOB with activity; Negative for SOB at rest or SOB orthopnea SOB lying down GI GI: Negative nausea, vomiting or heartburn Musc Musc: Negative for muscle aches/ myalgia, muscle weakness, joint pain or balance problems Neuro Neuro: Positive for lightheadedness (w/ rapid positional changes; occasional); Negative for dizziness, near syncope, syncope, headache(s) or weakness Endo Endo: Negative for fatigue Cardiology Exam Const Appearance: comfortable and no acute distress Nutritional Appearance: well nourished Neck Neck: no JVD Carotids: Negative bruit Chest Auscultation: Bilateral (more content not included)... Normal [facility] CBC W/Diff, Automatedon 08-0 Absolute Lymph 1.46 X10 3/uL Normal 0.83-4.[address] [facility] Comment on above: Order Comment: Order Date: 10/12/23Order Info: [id number] - CBCDOrder Info: [id number] - SED Performed By: #### L 501.9985, L501.9520 #### [facility] [address] [place], [address] Absolute Neut 6.4 X10 3/uL Normal 2.0-7.[address] [facility] Comment on above: Order Comment: Order Date: 10/12/23Order Info: [id number] - CBCDOrder Info: [id number] - SED Performed By: #### L 501.9985, L501.9520 #### [facility] [address] [place], [address] Basophils/100 WBC (Bld) 0.5 % Normal 0-1 [facility] Comment on above: Order Comment: Order Date: 10/12/23Order Info: 183-03 - CBCDOrder Info: [id number] - SED Performed By: #### L 501.9985, L501.9520 #### [facility] [address] [place], [address] Eosinophils/100 WBC (Bld) 1.0 % Normal 0-[address] [facility] Comment on above: Order Comment: Order Date: 10/12/23Order Info: 183-03 - CBCDOrder Info: [id number] - SED Performed By: #### L 501.9985, L501.9520 #### [facility] [address] [place], [address] Erythrocyte distribution width (RBC) [Ratio] 13.6 % Normal 11.6-14.[address] [facility] Comment on above: Order Comment: Order Date: 10/12/23Order Info: 183-03 - CBCDOrder Info: [id number] - SED Performed By: #### L 501.9985, L501.9520 #### [facility] [address] [place], [address] Hematocrit (Bld) [Volume fraction] 33.2 % Low 37-[address] [facility] Comment on above: Order Comment: Order Date: 10/12/23Order Info: 183-03 - CBCDOrder Info: [id number] - SED Performed By: #### L 501.9985, L501.9520 #### [facility] [address] [place], [address] Hemoglobin (Bld) [Mass/Vol] 10.6 g/dL Low 12.0-15.[address] [facility] Comment on above: Order Comment: Order Date: 10/12/23Order Info: 018-1 - CBCDOrder Info: [id number] - SED Performed By: #### L 501.9985, L501.9520 #### [facility] [address] [place], [address] IG% 0.300 Normal 0.0-0.[address] [facility] Comment on above: Order Comment: Order Date: 10/12/23Order Info: 018-1 - CBCDOrder Info: [id number] - SED Result Comment: IG% - Immature Granulocytes (promyelocytes, myelocytes and metamyelocytes) > 1% indicates that a LEFT SHIFT is Present. Performed By: #### L 501.9985, L501.9520 #### [facility] [address] [place], [address] Lymphocytes/100 WBC (Bld) 16.9 % Low 19-[address] [facility] Comment on above: Order Comment: Order Date: 10/12/23Order Info: 018- - CBCDOrder Info: [id number] - SED Performed By: #### L 501.9985, L501.9520 #### [facility] [address] [place], [address] MCH (RBC) [Entitic mass] 29.6 pg Normal 27.0-32.[address] [facility] Comment on above: Order Comment: Order Date: 10/12/23Order Info: 018- - CBCDOrder Info: [id number] - SED Performed By: #### L 501.9985, L501.9520 #### [facility] [address] [place], [address] MCHC (RBC) [Mass/Vol] 31.9 g/dL Low 32-36 [facility] Comment on above: Order Comment: Order Date: 10/12/23Order Info: 018-1 - CBCDOrder Info: [id number] - SED Performed By: #### L 501.9985, L501.9520 #### [facility] [address] [place], [address] MCV (RBC) [Entitic vol] 92.7 fL Normal 81-99 [facility] Comment on above: Order Comment: Order Date: 10/12/23Order Info: 183- - CBCDOrder Info: [id number] - SED Performed By: #### L 501.9985, L501.9520 #### [facility] [address] [place], [address] Monocytes/100 WBC (Bld) 7.3 % Normal 0-10 [facility] Comment on above: Order Comment: Order Date: 10/12/23Order Info: 183-03 - CBCDOrder Info: [id number] - SED Performed By: #### L 501.9985, L501.9520 #### [facility] [address] [place], [address] Neutrophils/100 WBC (Bld) 74.0 % High 47-[address] [facility] Comment on above: Order Comment: Order Date: 10/12/23Order Info: 183- - CBCDOrder Info: [id number] - SED Performed By: #### L 501.9985, L501.9520 #### [facility] [address] [place], [address] Nucleated RBC (Bld) [#/Vol] 0 10*3/uL Normal 0-[address] [facility] Comment on above: Order Comment: Order Date: 10/12/23Order Info: 183-03 - CBCDOrder Info: [id number] - SED Performed By: #### L 501.9985, L501.9520 #### [facility] [address] [place], [address] Platelet mean volume (Bld) [Entitic vol] 10.6 fL Normal 6.2-12.[address] [facility] Comment on above: Order Comment: Order Date: 10/12/23Order Info: 183- - CBCDOrder Info: [id number] - SED Performed By: #### L 501.9985, L501.9520 #### [facility] [address] [place], [address] Platelets (Bld) [#/Vol] 288 10*3/uL Normal 150-[address] [facility] Comment on above: Order Comment: Order Date: 10/12/23Order Info: 183- - CBCDOrder Info: [id number] - SED Performed By: #### L 501.9985, L501.9520 #### [facility] [address] [place], [address] RBC (Bld) [#/Vol] 3.58 10*6/uL Low 4.2-5.4 [facility] Comment on above: Order Comment: Order Date: 10/12/23Order Info: 183-03 - CBCDOrder Info: [id number] - SED Performed By: #### L 501.9985, [id number] #### [facility] [address] [place], [address] RDW SD 46.7 fl High 35.1-43.[address] [facility] Comment on above: Order Comment: Order Date: 10/12/23Order Info: 183- - CBCDOrder Info: [id number] - SED Performed By: #### L 501.9985, L501.9520 #### [facility] [address] [place], [address] WBC (Bld) [#/Vol] 8.7 10*3/uL Normal 4.4-11.0 [facility] Comment on above: Order Comment: Order Date: 10/12/23Order Info: 183- - CBCDOrder Info: [id number] - SED Performed By: #### L 501.9985, L501.9520 #### [facility] [address] [place], [address] Comprehensive Metabolic Prof ilon 10-12-2023 Albumin [Mass/Vol] 3.5 g/dL Normal 3.2-5.0 [facility] Comment on above: Order Comment: Order Date: 10/12/23Order Info: 86-1 - CMPOrder Info: [id number] - TSH Performed By: #### L 501.9985, L501.9520 #### [facility] [address] [place], [address] Albumin/Globulin [Mass ratio] 1.0 {ratio} Normal 0.9-2.[address] [facility] Comment on above: Order Comment: Order Date: 10/12/23Order Info: 785-1 - CMPOrder Info: [id number] - TSH Performed By: #### L 501.9985, [id number] #### [facility] [address] [place], [address] ALK P 124 U/L High 45-[address] [facility] Comment on above: Order Comment: Order Date: 10/12/23Order Info: 785-1 - CMPOrder Info: [id number] - TSH Performed By: #### L 501.9985, [id number] #### [facility] [address] [place], [address] ALT [Catalytic activity/Vol] 31 U/L Normal 13-[address] [facility] Comment on above: Order Comment: Order Date: 10/12/23Order Info: 86-1 - CMPOrder Info: [id number] - TSH Performed By: #### L 501.9985, [id number] #### [facility] [address] [place], [address] AST [Catalytic activity/Vol] 20 U/L Normal 15-[address] [facility] Comment on above: Order Comment: Order Date: 10/12/23Order Info: 86-1 - CMPOrder Info: [id number] - TSH Performed By: #### L 501.9985, [id number] #### [facility] [address] [place], [address] Bilirubin [Mass/Vol] 0.40 mg/dL Normal 0.20-1.00 [facility] Comment on above: Order Comment: Order Date: 10/12/23Order Info: 86-1 - CMPOrder Info: 6-3 - TSH Result Comment: For patients on eltrombopag therapy, use of Dimension [place] TBIL is not recommended. Performed By: #### L 501.9985, L501.9520 #### [facility] [address] [place], [address] BUN/CRE 17.0 RATIO Normal 10-[address] [facility] Comment on above: Order Comment: Order Date: 10/12/23Order Info: 0786- - CMPOrder Info: [id number] - TSH Performed By: #### L 501.9985, [id number] #### [facility] [address] [place], [address] CA,Total 8.6 mg/dL Normal 8.5-10.[address] [facility] Comment on above: Order Comment: Order Date: 10/12/23Order Info: 0786- - CMPOrder Info: [id number] - TSH Performed By: #### L 501.9985, [id number] #### [facility] [address] [place], [address] Chloride [Moles/Vol] 106 mmol/L Normal 98-107 [facility] Comment on above: Order Comment: Order Date: 10/12/23Order Info: [id number] - CMPOrder Info: [id number] - TSH Performed By: #### L 501.9985, [id number] #### [facility] [address] [place], [address] CO2 [Moles/Vol] 21.0 mmol/L Normal 21.0-32.[address] [facility] Comment on above: Order Comment: Order Date: 10/12/23Order Info: [id number] - CMPOrder Info: [id number] - TSH Performed By: #### L 501.9985, [id number] #### [facility] [address] [place], [address] Creatinine [Mass/Vol] 1.35 mg/dL High 0.55-1.02 [facility] Comment on above: Order Comment: Order Date: 10/12/23Order Info: [id number] - CMPOrder Info: [id number] - TSH Result Comment: The validity of the calculated GFR GFRAA in patients over 70 years has not been determined. Clinical correlation is essential. Performed By: #### L 501.9985, L501.9520 #### [facility] [address] [place], [address] EST GFR - AA 50 mL/min Low >[address] [facility] Comment on above: Order Comment: Order Date: 10/12/23Order Info: [id number] - CMPOrder Info: [id number] - TSH Result Comment: Afri can Burmese GFR Calc Performed By: #### L 501.9985, [id number] #### [facility] [address] [place], [address] GAP 9 Normal 5-[address] [facility] Comment on above: Order Comment: Order Date: 10/12/23Order Info: [id number] - CMPOrder Info: [id number] - TSH Performed By: #### L 501.9985, [id number] #### [facility] [address] [place], [address] GFR/1.73 sq M.predicted among non-blacks MDRD (S/P/Bld) [Vol rate/Area] 41 mL/min/{1.73_m2} Low >[address] [facility] Comment on above: Order Comment: Order Date: 10/12/23Order Info: 0786-1 - CMPOrder Info: [id number] - TSH Result Comment: Non- GFR Calc Performed By: #### L 501.9985, L501.9520 #### [facility] [address] [place], [address] Globulin (S) [Mass/Vol] 3.6 g/dL Normal 2.2-4.2 [facility] Comment on above: Order Comment: Order Date: 10/12/23Order Info: 785- - CMPOrder Info: [id number] - TSH Performed By: #### L 501.9985, [id number] #### [facility] [address] [place], [address] Glucose [Mass/Vol] 128 mg/dL High 74-106 [facility] Comment on above: Order Comment: Order Date: 10/12/23Order Info: 785- - CMPOrder Info: [id number] - TSH Result Comment: Fast ing Glucose result greater than or equal to 126 mg/dL suggests DIABETES MELLITUS per A.D.A. criteria. Performed By: #### L 501.9985, L501.9520 #### [facility] [address] [place], [address] Potassium [Moles/Vol] 4.3 mmol/L Normal 3.5-5.1 [facility] Comment on above: Order Comment: Order Date: 10/12/23Order Info: 785-03 - CMPOrder Info: [id number] - TSH Performed By: #### L 501.9985, [id number] #### [facility] [address] [place], [address] Sodium [Moles/Vol] 136 mmol/L Normal 136-145 [facility] Comment on above: Order Comment: Order Date: 10/12/23Order Info: 785-03 - CMPOrder Info: [id number] - TSH Performed By: #### L 501.9985, [id number] #### [facility] [address] [place], [address] T PROT 7.1 g/dL Normal 6.4-8.[address] [facility] Comment on above: Order Comment: Order Date: 10/12/23Order Info: 0786-1 - CMPOrder Info: [id number] - TSH Performed By: #### L 501.9985, [id number] #### [facility] [address] [place], [address] Urea nitrogen [Mass/Vol] 23 mg/dL High 7-[address] [facility] Comment on above: Order Comment: Order Date: 10/12/23Order Info: 0786-1 - CMPOrder Info: [id number] - TSH Performed By: #### L 501.9985, L501.9520 #### [facility] [address] [place], [address] Erythrocyte Sed Rateon 10-11 SED RATE 11 mm/hr Normal 0- [facility] Comment on above: Order Comment: Order Date: 10/12/23Order Info: 0184-1 - CBCDOrder Info: [id number] - SED Performed By: #### L 501.9985, [id number] #### [facility] [address] [place], [address] Thyroid Stim Hormone (TSH)on 10-12-2023 TSH 1.17 uIU/mL Normal 0.358-3.[address] [facility] Comment on above: Order Comment: Order Date: 10/12/23Order Info: [id number] - CMPOrder Info: [id number] - TSH Performed By: #### L 501.9985, L501.9520 #### [facility] Laboratory [address] [place], [id number] Basophil percentageOrdered B y: Radha Coynean on 07-05-2023 Bilirubin [Mass/Vol] 0.60 mg/dL 0.20-1.00 [facility] Comment on above: For patients on eltr ombopag therapy, use of Dimension [place] TBIL is not recommended. Chloride [Moles/Vol] 106 mmol/L 98-107 [facility] Cholesterol [Mass/Vol] 159 mg/dL <200 [facility] Comment on above: <200 mg/dL Desirable 200-240 mg/dL Borderline >240 mg/dL High Risk Glucose [Mass/Vol] 147 mg/dL 74-106 [facility] Comment on above: Fasting Glucose resu lt greater than or equal to 126 mg/dL suggests DIABETES MELLITUS per A.D.A. criteria. Potassium [Moles/Vol] 3.7 mmol/L 3.5-5.1 [facility] Protein [Mass/Vol] 7.0 g/dL 6.4-8.2 [facility] Sodium [Moles/Vol] 139 mmol/L 136-145 [facility] Triglyceride [Mass/Vol] 215 mg/dL <199 [facility] Comment on above: The drugs N-Acetylcy steine and Metamizole may falsely depress this assay.Serum Triglycerides Reference Interval Normal <150 mg/dL Borderline high 150 - 199 mg/dL High 200 - 499 mg/dL Very High > or = 500 mg/dL Laboratory - Chemistry and C hemistry - challengeOrdered By: Radha Hammonds on 07-05-2023 Albumin/Globulin [Mass ratio] 0.9 {ratio} 0.9-2.[address] [facility] ALP [Catalytic activity/Vol] 116 U/L 45-[address] [facility] ALT [Catalytic activity/Vol] 33 U/L 13-[address] [facility] Cholesterol in HDL [Mass/Vol] 50 mg/dL >[address] [facility] Comment on above: The drugs N-Acetylcy steine and Metamizole may falsely depress this assay. Reference Range HDL <40 mg/dL Low HDL Cholesterol HDL >or= 60 mg/dL High HDL Cholesterol Cholesterol in LDL [Mass/Vol] 66 mg/dL 0-[address] [facility] CO2 [Moles/Vol] 27.0 mmol/L 21.0-32.[address] [facility] Globulin (S) [Mass/Vol] 3.6 g/dL 2.2-4.2 [facility] Urea nitrogen/Creatinine [Mass ratio] 16.3 mg/mg 10-[address] [facility] No Panel InformationOrdered By: Radha Hammonds on 07-05-2023 Estimated GFR (MDRD) Amer 72 mL/min >[address] [facility] Comment on above: GFR Calc Estimated GFR (MDRD) Non-Af Amer 60 mL/min >[address] [facility] Comment on above: Non- GFR Calc VLDL Cholesterol 43 mg/dL 5-[address] [facility] Serum or plasma calcium peng urement (mass/volume)Ordered By: Radha Hammonds on 07-05-2023 Calcium [Mass/Vol] 8.5 mg/dL 8.5-10.1 [facility] Serum or plasma creatinine m easurement (mass/volume)Ordered By: Radha Hammonds on 07-05-2023 Creatinine [Mass/Vol] 0.98 mg/dL 0.55-1.02 [facility] Comment on above: The validity of the calculated GFR & GFRAA in patients over 70 years has not been determined. Clinical correlation is essential. Serum or plasma urea nitroge n measurement (mass/volume)Ordered By: Radha Hammonds on 07-05-2023 Urea nitrogen [Mass/Vol] 16 mg/dL 7-[address] [facility] Thin prep Papanicolaou smear with manual screeningOrdered By: Radha Hammonds on 07-05-2023 Thin prep Papanicolaou smear with manual screening 3.4 g/dL 3.2-5.[address] [facility] Thin prep Papanicolaou smear with manual screening 23 U/L 15-[address] [facility] Thin prep Papanicolaou smear with manual screening 6 5-[address] [facility] Absolute lymphocyte countOrd ered By: Mildred Pedersen on 03-11-2023 Lymphocytes Auto (Unsp spec) [#/Vol] 2.03 10*3/uL 0.83-4.[address] [facility] Basophil percentageOrdered B y: Mildred Pedersen on 03-11-2023 Basophil percentage 4.9 mg/dL 2.5-4.9 [facility] Basophils/100 WBC (Bld) 0.7 % 0-1 [facility] Chloride [Moles/Vol] 106 mmol/L 98-107 [facility] Cholesterol [Mass/Vol] 170 mg/dL <200 [facility] Comment on above: <200 mg/dL Desirable 200-240 mg/dL Borderline >240 mg/dL High Risk Eosinophils/100 WBC (Bld) 2.3 % 0-[address] [facility] Glucose [Mass/Vol] 149 mg/dL 74-106 [facility] Comment on above: Fasting Glucose resu lt greater than or equal to 126 mg/dL suggests DIABETES MELLITUS per A.D.A. criteria. Neutrophils (Bld) [#/Vol] 5.8 10*3/uL 2.0-7.[address] [facility] Neutrophils/100 WBC (Bld) 64.1 % 47-[address] [facility] Potassium [Moles/Vol] 3.6 mmol/L 3.5-5.1 [facility] Sodium [Moles/Vol] 139 mmol/L 136-145 [facility] Triglyceride [Mass/Vol] 170 mg/dL <199 [facility] Comment on above: The drugs N-Acetylcy steine and Metamizole may falsely depress this assay.Serum Triglycerides Reference Interval Normal <150 mg/dL Borderline high 150 - 199 mg/dL High 200 - 499 mg/dL Very High > or = 500 mg/dL WBC (Bld) [#/Vol] 9.0 10*3/uL 4.4-11.0 [facility] Blood erythrocytes count (nu mber/volume)Ordered By: Mildred Pedersen on 03-11-2023 RBC (Bld) [#/Vol] 3.63 10*6/uL 4.2-5.4 [facility] Blood hemoglobin measurement (mass/volume)Ordered By: Mildred Pedersen on 03-11-2023 Hemoglobin (Bld) [Mass/Vol] 10.6 g/dL 12.0-15.[address] [facility] Blood lymphocytes/100 leukoc ytesOrdered By: Mildred Pedersen on 03-11-2023 Lymphocytes/100 WBC (Bld) 22.5 % 19-[address] [facility] Blood monocytes/100 leukocyt esOrdered By: Mildred Pedersen on 03-11-2023 Monocytes/100 WBC (Bld) 10.1 % 0-10 [facility] Blood platelet mean volumeOr dered By: Mildred Pedersen on 03-11-2023 Platelet mean volume (Bld) [Entitic vol] 9.9 fL 6.2-12.[address] [facility] Determination of erythrocyte mean corpuscular volume (MCV)Ordered By: Mildred Pedersen on 03-11-2023 MCV (RBC) [Entitic vol] 91.2 fL 81-99 [facility] Hematocrit Auto (Bld) [Volum e fraction]Ordered By: Mildred Pedersen on 03-11-2023 Hematocrit (Bld) [Volume fraction] 33.1 % 37-[address] [facility] Laboratory - Chemistry and C hemistry - challengeOrdered By: Mildred Pedersen on 03-11-2023 CO2 [Moles/Vol] 24.0 mmol/L 21.0-32.[address] [facility] Magnesium [Mass/Vol] 1.8 mg/dL 1.6-2.6 [facility] Urea nitrogen/Creatinine [Mass ratio] 21.9 mg/mg 10-[address] [facility] Laboratory - Hematology and Cell countsOrdered By: Mildred Pedersen on 03-11-2023 Erythrocyte distribution width (RBC) [Entitic vol] 44.9 fL 35.1-43.[address] [facility] Erythrocyte distribution width (RBC) [Ratio] 13.4 % 11.6-14.[address] [facility] Immature granulocytes/100 WBC (Bld) 0.300 % 0.0-0.[address] [facility] Comment on above: IG% - Immature Granu locytes (promyelocytes, myelocytes and metamyelocytes) > 1% indicates that a LEFT SHIFT is Present. MCH (RBC) [Entitic mass] 29.2 pg 27.0-32.[address] [facility] Nucleated RBC/100 WBC (Bld) [Ratio] 0 % 0-[address] [facility] MCHC Auto (RBC) [Mass/Vol]Or dered By: Mildred Pedersen on 03-11-2023 MCHC (RBC) [Mass/Vol] 32.0 g/dL 32-36 [facility] No Panel InformationOrdered By: Mildred Pedersen on 03-11-2023 Estimated Creatinine Clearance Calc 44.86 ml/min [facility] Estimated GFR (MDRD) Amer 67 mL/min >[address] [facility] Comment on above: GFR Calc Estimated GFR (MDRD) Non-Af Amer 55 mL/min >[address] [facility] Comment on above: Non- GFR Calc Platelets bldOrdered By: Dinorah Pedersen on 03-11-2023 Platelets (Bld) [#/Vol] 271 10*3/uL 150-[address] [facility] Serum or plasma calcium peng urement (mass/volume)Ordered By: Mildred Pedersen on 03-11-2023 Calcium [Mass/Vol] 8.6 mg/dL 8.5-10.1 [facility] Serum or plasma cholesterol in HDL measurement (mass/volume)Ordered By: Mildred Pedersen on 03-11-2023 Cholesterol in HDL [Mass/Vol] 54 mg/dL >[address] [facility] Comment on above: The drugs N-Acetylcy steine and Metamizole may falsely depress this assay. Reference Range HDL <40 mg/dL Low HDL Cholesterol HDL >or= 60 mg/dL High HDL Cholesterol Serum or plasma cholesterol in VLDL measurement (mass/volume)Ordered By: Mildred Pedersen on 03-11-2023 Cholesterol in VLDL [Mass/Vol] 34 mg/dL 5-[address] [facility] Serum or plasma creatinine m easurement (mass/volume)Ordered By: Mildred Pedersen on 03-11-2023 Creatinine [Mass/Vol] 1.05 mg/dL 0.55-1.02 [facility] Comment on above: The validity of the calculated GFR & GFRAA in patients over 70 years has not been determined. Clinical correlation is essential. Serum or plasma low density lipoprotein (LDL) cholesterol measurement (mass/volume)Ordered By: Mildred Pedersen on 03-11-2023 Cholesterol in LDL [Mass/Vol] 82 mg/dL 0-[address] [facility] Serum or plasma urea nitroge n measurement (mass/volume)Ordered By: Mildred Pedersen on 03-11-2023 Urea nitrogen [Mass/Vol] 23 mg/dL 7-[address] [facility] Thin prep Papanicolaou smear with manual screeningOrdered By: Mildred Pedersen on 03-11-2023 Thin prep Papanicolaou smear with manual screening 9 5-[address] [facility] Basophil percentageOrdered B y: Radha Hammonds on 03-10-2023 Bilirubin [Mass/Vol] 0.50 mg/dL 0.20-1.00 [facility] Comment on above: For patients on eltr ombopag therapy, use of Dimension [place] TBIL is not recommended. Protein [Mass/Vol] 7.2 g/dL 6.4-8.2 [facility] Laboratory - Chemistry and C hemistry - challengeOrdered By: Radha Hammonds on 03-10-2023 ALP [Catalytic activity/Vol] 114 U/L 45-[address] [facility] ALT [Catalytic activity/Vol] 57 U/L 13-[address] [facility] Globulin (S) [Mass/Vol] 3.5 g/dL 2.2-4.2 [facility] Serum or plasma albumin peng urement (mass/volume)Ordered By: Radha Hammonds on 03-10-2023 Albumin [Mass/Vol] 3.7 g/dL 3.2-5.0 [facility] Serum or plasma albumin/glob ulin mass ratioOrdered By: Radhagertrude Hammonds on 03-10-2023 Albumin/Globulin [Mass ratio] 1.1 {ratio} 0.9-2.[address] [facility] Thin prep Papanicolaou smear with manual screeningOrdered By: Radha Hammonds on 03-10-2023 Thin prep Papanicolaou smear with manual screening 217 U/L 15-[address] [facility] Whole blood hemoglobin A1c/t otal hemoglobin ratio (mass fraction)Ordered By: Jon Jacome on 03-10-2023 HbA1c (Bld) [Mass fraction] 6.7 % 3.8-5.[address] [facility] Comment on above: Normal < 5.7 % Predi abetic 5.7 - 6.4 % Diabetic >or= 6.5 % Please note range changes. Absolute lymphocyte countOrd ered By: Leoncio Jorge on 03-09-2023 Lymphocytes Auto (Unsp spec) [#/Vol] 1.97 10*3/uL 0.83-4.[address] [facility] Absolute lymphocyte countOrd ered By: Tong Ayala on 03-09-2023 Lymphocytes Auto (Unsp spec) [#/Vol] 0.91 10*3/uL 0.83-4.[address] [facility] Basophil percentageOrdered B y: Leoncio Jorge on 03-09-2023 Basophils/100 WBC (Bld) 0.4 % 0-1 [facility] Eosinophils/100 WBC (Bld) 0.2 % 0-[address] [facility] Neutrophils (Bld) [#/Vol] 10.5 10*3/uL 2.0-7.[address] [facility] Neutrophils/100 WBC (Bld) 77.1 % 47-[address] [facility] WBC (Bld) [#/Vol] 13.6 10*3/uL 4.4-11.0 [facility] Basophil percentageOrdered B y: Tong Ayala on 03-09-2023 Basophils/100 WBC (Bld) 0.4 % 0-1 [facility] Bilirubin [Mass/Vol] 0.40 mg/dL 0.20-1.00 [facility] Comment on above: For patients on eltr ombopag therapy, use of Dimension [place] TBIL is not recommended. Chloride [Moles/Vol] 105 mmol/L 98-107 [facility] Cholesterol [Mass/Vol] 198 mg/dL <200 [facility] Comment on above: <200 mg/dL Desirable 200-240 mg/dL Borderline >240 mg/dL High Risk Eosinophils/100 WBC (Bld) 0.2 % 0-[address] [facility] Glucose [Mass/Vol] 170 mg/dL 74-106 [facility] Comment on above: Fasting Glucose resu lt greater than or equal to 126 mg/dL suggests DIABETES MELLITUS per A.D.A. criteria. Neutrophils (Bld) [#/Vol] 11.4 10*3/uL 2.0-7.[address] [facility] Neutrophils/100 WBC (Bld) 87.8 % 47-[address] [facility] Potassium [Moles/Vol] 4.2 mmol/L 3.5-5.1 [facility] Protein [Mass/Vol] 7.7 g/dL 6.4-8.2 [facility] Sodium [Moles/Vol] 137 mmol/L 136-145 [facility] Triglyceride [Mass/Vol] 116 mg/dL <199 [facility] Comment on above: The drugs N-Acetylcy steine and Metamizole may falsely depress this assay.Serum Triglycerides Reference Interval Normal <150 mg/dL Borderline high 150 - 199 mg/dL High 200 - 499 mg/dL Very High > or = 500 mg/dL WBC (Bld) [#/Vol] 13.0 10*3/uL 4.4-11.0 [facility] Blood erythrocytes count (nu mber/volume)Ordered By: Leoncio Jorge on 03-09-2023 RBC (Bld) [#/Vol] 4.13 10*6/uL 4.2-5.4 [facility] Blood erythrocytes count (nu mber/volume)Ordered By: Tong Ayala on 03-09-2023 RBC (Bld) [#/Vol] 4.02 10*6/uL 4.2-5.4 [facility] Blood hemoglobin measurement (mass/volume)Ordered By: Leoncio Jorge on 03-09-2023 Hemoglobin (Bld) [Mass/Vol] 12.3 g/dL 12.0-15.[address] [facility] Blood hemoglobin measurement (mass/volume)Ordered By: Tong Ayala on 03-09-2023 Hemoglobin (Bld) [Mass/Vol] 11.9 g/dL 12.0-15.[address] [facility] Blood lymphocytes/100 leukoc ytesOrdered By: Leoncio Jorge on 03-09-2023 Lymphocytes/100 WBC (Bld) 14.5 % [facility] Blood lymphocytes/100 leukoc ytesOrdered By: Tong Ayala on 03-09-2023 Lymphocytes/100 WBC (Bld) 7.0 % [facility] Blood monocytes/100 leukocyt esOrdered By: Leoncio Jorge on 03-09-2023 Monocytes/100 WBC (Bld) 7.4 % 0-10 [facility] Blood monocytes/100 leukocyt esOrdered By: Tong Ayala on 03-09-2023 Monocytes/100 WBC (Bld) 3.8 % 0-10 [facility] Blood platelet mean volumeOr dered By: Leoncio Jorge on 03-09-2023 Platelet mean volume (Bld) [Entitic vol] 9.7 fL 6.2-12.[address] [facility] Blood platelet mean volumeOr dered By: Tong Ayala on 03-09-2023 Platelet mean volume (Bld) [Entitic vol] 10.3 fL 6.2-12.[address] [facility] Determination of erythrocyte mean corpuscular volume (MCV)Ordered By: Leoncio Jorge on 03-09-2023 MCV (RBC) [Entitic vol] 90.1 fL 81-99 [facility] Determination of erythrocyte mean corpuscular volume (MCV)Ordered By: Tong Ayala on 03-09-2023 MCV (RBC) [Entitic vol] 92.5 fL 81-99 [facility] Hematocrit Auto (Bld) [Volum e fraction]Ordered By: Leoncio Jorge on 03-09-2023 Hematocrit (Bld) [Volume fraction] 37.2 % 37-[address] [facility] Hematocrit Auto (Bld) [Volum e fraction][facility]23 Hematocrit (Bld) [Volume fraction] 37.2 % 37-[address] [facility] Laboratory - Chemistry and C hemistry - challengeOrdered By: Tong Ayala on 03-09-2023 ALP [Catalytic activity/Vol] 128 U/L 45-[address] [facility] ALT [Catalytic activity/Vol] 51 U/L 13-[address] [facility] CO2 [Moles/Vol] 21.0 mmol/L 21.0-32.[address] [facility] Globulin (S) [Mass/Vol] 4.0 g/dL 2.2-4.2 [facility] Urea nitrogen/Creatinine [Mass ratio] 16.5 mg/mg 10-[address] [facility] Laboratory - Hematology and Cell countsOrdered By: Leonciojaki Jorge on 03-09-2023 Erythrocyte distribution width (RBC) [Entitic vol] 44.0 fL 35.1-43.[address] [facility] Erythrocyte distribution width (RBC) [Ratio] 13.4 % 11.6-14.[address] [facility] Immature granulocytes/100 WBC (Bld) 0.400 % 0.0-0.[address] [facility] Comment on above: IG% - Immature Granu locytes (promyelocytes, myelocytes and metamyelocytes) > 1% indicates that a LEFT SHIFT is Present. MCH (RBC) [Entitic mass] 29.8 pg 27.0-32.[address] [facility] Nucleated RBC/100 WBC (Bld) [Ratio] 0 % 0-[address] [facility] Laboratory - Hematology and Cell countsOrdered By: Tong Ayala on 03-09-2023 Erythrocyte distribution width (RBC) [Entitic vol] 45.7 fL 35.1-43.[address] [facility] Erythrocyte distribution width (RBC) [Ratio] 13.4 % 11.6-14.[address] [facility] Immature granulocytes/100 WBC (Bld) 0.800 % 0.0-0.[address] [facility] Comment on above: IG% - Immature Granu locytes (promyelocytes, myelocytes and metamyelocytes) > 1% indicates that a LEFT SHIFT is Present. MCH (RBC) [Entitic mass] 29.6 pg 27.0-32.[address] [facility] Nucleated RBC/100 WBC (Bld) [Ratio] 0 % 0-[address] [facility] MCHC Auto (RBC) [Mass/Vol]Or dered By: Leoncio Jorge on 03-09-2023 MCHC (RBC) [Mass/Vol] 33.1 g/dL 32-36 [facility] MCHC Auto (RBC) [Mass/Vol]Or dered By: Tong Ayala on 03-09-2023 MCHC (RBC) [Mass/Vol] 32.0 g/dL 32-36 [facility] No Panel InformationOrdered By: Leoncio Jorge on 03-09-2023 Troponin I High Sensitivity 28330 pg/mL 3.0-54.[address] [facility] Comment on above: Critical Result(s) C alled at: 22:54:07 03/09/2023 by: Agnieszka Rosario to [facility]. Results read back by same. Please Note: New Test Units and Gender Specific Reference Ranges. For more information see Policy Stat Procedure [place] High Sensitivity Troponin (TNIH) and attachments. No Panel InformationOrdered By: Jon Jacome on 03-09-2023 Activated Clotting Time 190 sec 74-137 [facility] No Panel InformationOrdered By: Tong Ayala on 03-09-2023 Estimated GFR (MDRD) Amer 64 mL/min >[address] [facility] Comment on above: GFR Calc Estimated GFR (MDRD) Non-Af Amer 53 mL/min >[address] [facility] Comment on above: Non- GFR Calc Thyroid Stimulating Hormone (TSH) 0.43 uIU/mL 0.358-3.[address] [facility] Troponin I High Sensitivity 938 pg/mL 3.0-54.[address] [facility] Comment on above: Critical Result(s) C alled at: 18:55:02 03/09/2023 by: Agnieszka Rosario to Dr. Orozco. Results read back by same. Please Note: New Test Units and Gender Specific Reference Ranges. For more information see Policy Stat Procedure [place] High Sensitivity Troponin (TNIH) and attachments. Platelets bldOrdered By: Leoncio Jorge on 03-09-2023 Platelets (Bld) [#/Vol] 362 10*3/uL 150-[address] [facility] Platelets bldOrdered By: Betty Ayala on 03-09-2023 Platelets (Bld) [#/Vol] 353 10*3/uL 150-[address] [facility] Serum or plasma albumin peng urement (mass/volume)Ordered By: Tong Ayala on 03-09-2023 Albumin [Mass/Vol] 3.7 g/dL 3.2-5.0 [facility] Serum or plasma albumin/glob ulin mass ratioOrdered By: Tong Ayala on 03-09-2023 Albumin/Globulin [Mass ratio] 0.9 {ratio} 0.9-2.[address] [facility] Serum or plasma calcium peng urement (mass/volume)Ordered By: Tong Ayala on 03-09-2023 Calcium [Mass/Vol] 8.5 mg/dL 8.5-10.1 [facility] Serum or plasma cholesterol in HDL measurement (mass/volume)Ordered By: Tong Ayala on 03-09-2023 Cholesterol in HDL [Mass/Vol] 58 mg/dL >[address] [facility] Comment on above: The drugs N-Acetylcy steine and Metamizole may falsely depress this assay. Reference Range HDL <40 mg/dL Low HDL Cholesterol HDL >or= 60 mg/dL High HDL Cholesterol Serum or plasma cholesterol in VLDL measurement (mass/volume)Ordered By: Tong Ayala on 03-09-2023 Cholesterol in VLDL [Mass/Vol] 23 mg/dL 5-[address] [facility] Serum or plasma creatinine m easurement (mass/volume)Ordered By: Tong Ayala on 03-09-2023 Creatinine [Mass/Vol] 1.09 mg/dL 0.55-1.02 [facility] Comment on above: The validity of the calculated GFR & GFRAA in patients over 70 years has not been determined. Clinical correlation is essential. Serum or plasma low density lipoprotein (LDL) cholesterol measurement (mass/volume)Ordered By: Tong Ayala on 03-09-2023 Cholesterol in LDL [Mass/Vol] 117 mg/dL 0-[address] [facility] Serum or plasma urea nitroge n measurement (mass/volume)Ordered By: Tong Ayala on 03-09-2023 Urea nitrogen [Mass/Vol] 18 mg/dL 7-[address] [facility] Thin prep Papanicolaou smear with manual screeningOrdered By: Tong Ayala on 03-09-2023 Thin prep Papanicolaou smear with manual screening 39 U/L 15-[address] [facility] Thin prep Papanicolaou smear with manual screening 11 5-[address] [facility] Whole blood hemoglobin A1c/t otal hemoglobin ratio (mass fraction)Ordered By: Tong Ayala on 03-09-2023 HbA1c (Bld) [Mass fraction] 6.8 % 3.8-5.[address] [facility] Comment on above: Normal < 5.7 % Predi abetic 5.7 - 6.4 % Diabetic >or= 6.5 % Please note range changes. Absolute lymphocyte countOrd ered By: Floyd Ahmadi on 01-31-2023 Lymphocytes Auto (Unsp spec) [#/Vol] 1.80 10*3/uL 0.83-4.[address] [facility] Basophil percentageOrdered B y: Floyd Ahmadi on 01-31-2023 Basophils/100 WBC (Bld) 0.6 % 0-1 [facility] Bilirubin [Mass/Vol] 0.50 mg/dL 0.20-1.00 [facility] Comment on above: For patients on eltr ombopag therapy, use of Dimension [place] TBIL is not recommended. Chloride [Moles/Vol] 103 mmol/L 98-107 [facility] Eosinophils/100 WBC (Bld) 1.8 % 0-[address] [facility] Glucose [Mass/Vol] 155 mg/dL 74-106 [facility] Comment on above: Fasting Glucose resu lt greater than or equal to 126 mg/dL suggests DIABETES MELLITUS per A.D.A. criteria. LDH [Catalytic activity/Vol] 176 U/L 84-[address] [facility] Neutrophils (Bld) [#/Vol] 6.0 10*3/uL 2.0-7.[address] [facility] Neutrophils/100 WBC (Bld) 68.3 % 47-[address] [facility] Potassium [Moles/Vol] 4.0 mmol/L 3.5-5.1 [facility] Protein [Mass/Vol] 7.7 g/dL 6.4-8.2 [facility] Sodium [Moles/Vol] 137 mmol/L 136-145 [facility] WBC (Bld) [#/Vol] 8.8 10*3/uL 4.4-11.0 [facility] Blood erythrocytes count (nu mber/volume)Ordered By: Floyd Ahmadi on 01-31-2023 RBC (Bld) [#/Vol] 4.05 10*6/uL 4.2-5.4 [facility] Blood hemoglobin measurement (mass/volume)Ordered By: Floyd Ahmadi on 01-31-2023 Hemoglobin (Bld) [Mass/Vol] 12.1 g/dL 12.0-15.[address] [facility] Blood lymphocytes/100 leukoc ytesOrdered By: Floyd Ahmadi on 01-31-2023 Lymphocytes/100 WBC (Bld) 20.4 % 19-[address] [facility] Blood monocytes/100 leukocyt esOrdered By: Floyd Ahmadi on 01-31-2023 Monocytes/100 WBC (Bld) 8.6 % 0-10 [facility] Blood platelet mean volumeOr dered By: Floyd Ahmadi on 01-31-2023 Platelet mean volume (Bld) [Entitic vol] 9.9 fL 6.2-12.[address] [facility] Determination of erythrocyte mean corpuscular volume (MCV)Ordered By: Floyd Ahmadi on 01-31-2023 MCV (RBC) [Entitic vol] 91.4 fL 81-99 [facility] Hematocrit Auto (Bld) [Volum e fraction]Ordered By: Floyd Ahmadi on 01-31-2023 Hematocrit (Bld) [Volume fraction] 37.0 % 37-[address] [facility] Laboratory - Chemistry and C hemistry - challengeOrdered By: Floyd Ahmadi on 01-31-2023 ALP [Catalytic activity/Vol] 135 U/L 45-[address] [facility] ALT [Catalytic activity/Vol] 43 U/L 13-[address] [facility] CO2 [Moles/Vol] 27.0 mmol/L 21.0-32.[address] [facility] Globulin (S) [Mass/Vol] 3.8 g/dL 2.2-4.2 [facility] Urea nitrogen/Creatinine [Mass ratio] 16.8 mg/mg 10-[address] [facility] Laboratory - Hematology and Cell countsOrdered By: Floyd Ahmadi on 01-31-2023 Erythrocyte distribution width (RBC) [Entitic vol] 44.2 fL 35.1-43.[address] [facility] Erythrocyte distribution width (RBC) [Ratio] 13.2 % 11.6-14.[address] [facility] Immature granulocytes/100 WBC (Bld) 0.300 % 0.0-0.[address] [facility] Comment on above: IG% - Immature Granu locytes (promyelocytes, myelocytes and metamyelocytes) > 1% indicates that a LEFT SHIFT is Present. MCH (RBC) [Entitic mass] 29.9 pg 27.0-32.[address] [facility] Nucleated RBC/100 WBC (Bld) [Ratio] 0 % 0-[address] [facility] MCHC Auto (RBC) [Mass/Vol]Or dered By: Floyd Ahmadi on 01-31-2023 MCHC (RBC) [Mass/Vol] 32.7 g/dL 32-36 [facility] No Panel InformationOrdered By: Floyd Ahmadi on 01-31-2023 Estimated Creatinine Clearance Calc 44.02 ml/min [facility] Estimated GFR (MDRD) Amer 65 mL/min >[address] [facility] Comment on above: GFR Calc Estimated GFR (MDRD) Non-Af Amer 54 mL/min >[address] [facility] Comment on above: Non- GFR Calc Platelets bldOrdered By: Giovani Ahmadi on 01-31-2023 Platelets (Bld) [#/Vol] 349 10*3/uL 150-[address] [facility] Serum or plasma albumin peng urement (mass/volume)Ordered By: [facility] on 01-31-2023 Albumin [Mass/Vol] 3.9 g/dL 3.2-5.0 [facility] Serum or plasma albumin/glob ulin mass ratioOrdered By: [facility] on 01-31-2023 Albumin/Globulin [Mass ratio] 1.0 {ratio} 0.9-2.[address] [facility] Serum or plasma calcium peng urement (mass/volume)Ordered By: [facility] on 01-31-2023 Calcium [Mass/Vol] 9.0 mg/dL 8.5-10.1 [facility] Serum or plasma creatinine m easurement (mass/volume)Ordered By: [facility] on 01-31-2023 Creatinine [Mass/Vol] 1.07 mg/dL 0.55-1.02 [facility] Comment on above: The validity of the calculated GFR & GFRAA in patients over 70 years has not been determined. Clinical correlation is essential. Serum or plasma urea nitroge n measurement (mass/volume)Ordered By: [facility] on 01-31-2023 Urea nitrogen [Mass/Vol] 18 mg/dL 7-[address] [facility] Thin prep Papanicolaou smear with manual screeningOrdered By: [facility] on 01-31-2023 Thin prep Papanicolaou smear with manual screening 23 U/L 15-[address] [facility] Thin prep Papanicolaou smear with manual screening 7 5-[address] [facility] Basophil percentageOrdered B y: Akbar Farias on 10-06-2022 Bilirubin [Mass/Vol] 0.50 mg/dL 0.20-1.00 [facility] Comment on above: For patients on eltr ombopag therapy, use of Dimension [place] TBIL is not recommended. Chloride [Moles/Vol] 104 mmol/L 98-107 [facility] Glucose [Mass/Vol] 117 mg/dL 74-106 [facility] Comment on above: Fasting Glucose resu lt from 100 to 125 mg/dL suggests IMPAIRED HOMEOSTASIS per A.D.A. criteria. Potassium [Moles/Vol] 4.3 mmol/L 3.5-5.1 [facility] Comment on above: Slight Hemolysis, Re sult may be falsely increased. Protein [Mass/Vol] 7.5 g/dL 6.4-8.2 [facility] Sodium [Moles/Vol] 136 mmol/L 136-145 [facility] Laboratory - Chemistry and C hemistry - challengeOrdered By: Akbar Farias on 10-06-2022 ALP [Catalytic activity/Vol] 123 U/L 45-[address] [facility] ALT [Catalytic activity/Vol] 59 U/L 13-[address] [facility] CO2 [Moles/Vol] 25.0 mmol/L 21.0-32.[address] [facility] Globulin (S) [Mass/Vol] 3.5 g/dL 2.2-4.2 [facility] Urea nitrogen/Creatinine [Mass ratio] 19.6 mg/mg 10-[address] [facility] No Panel InformationOrdered By: Akbar Farias on 10-06-2022 Estimated GFR (MDRD) Amer 69 mL/min >[address] [facility] Comment on above: GFR Calc Estimated GFR (MDRD) Non-Af Amer 57 mL/min >[address] [facility] Comment on above: Non- GFR Calc Thyroid Stimulating Hormone (TSH) 0.41 uIU/mL 0.358-3.[address] [facility] Vitamin D 25-Hydroxy 48.2 ng/mL [facility] Comment on above: Vitamin D 25(OH) Sta tus Range Deficiency <20 ng/mL (50nmol/L) Insufficiency 20 - 30 ng/mL (50 - 75 nmol/L) Sufficiency 30 - 100 ng/mL (75 - 250 nmol/L) Toxicity >100 ng/mL (>250 nmol/L) Serum or plasma albumin peng urement (mass/volume)Ordered By: Akbar Farias on 10-06-2022 Albumin [Mass/Vol] 4.0 g/dL 3.2-5.0 [facility] Serum or plasma albumin/glob ulin mass ratioOrdered By: Akbar Farias on 10-06-2022 Albumin/Globulin [Mass ratio] 1.1 {ratio} 0.9-2.[address] [facility] Serum or plasma calcium peng urement (mass/volume)Ordered By: Akbar Farias on 10-06-2022 Calcium [Mass/Vol] 9.2 mg/dL 8.5-10.1 [facility] Serum or plasma creatinine m easurement (mass/volume)Ordered By: Akbar Farias on 10-06-2022 Creatinine [Mass/Vol] 1.02 mg/dL 0.55-1.02 [facility] Comment on above: The validity of the calculated GFR & GFRAA in patients over 70 years has not been determined. Clinical correlation is essential. Serum or plasma urea nitroge n measurement (mass/volume)Ordered By: Akbar Farias on 10-06-2022 Urea nitrogen [Mass/Vol] 20 mg/dL 7-[address] [facility] Thin prep Papanicolaou smear with manual screeningOrdered By: Akbar Farias on 10-06-2022 Thin prep Papanicolaou smear with manual screening 37 U/L 15-[address] [facility] Comment on above: Slight Hemolysis, Re sult may be falsely increased. Thin prep Papanicolaou smear with manual screening 7 5-[address] [facility] Basophil percentageOrdered B y: Dr. Farias on 04-08-2022 Chloride [Moles/Vol] 110 mmol/L 98-107 [facility] Glucose [Mass/Vol] 137 mg/dL 74-106 [facility] Comment on above: Fasting Glucose resu lt greater than or equal to 126 mg/dL suggests DIABETES MELLITUS per A.D.A. criteria. Potassium [Moles/Vol] 4.2 mmol/L 3.5-5.1 [facility] Sodium [Moles/Vol] 141 mmol/L 136-145 [facility] Laboratory - Chemistry and C hemistry - challengeOrdered By: Dr. Farias on 04-08-2022 CO2 [Moles/Vol] 24.0 mmol/L 21.0-32.[address] [facility] Free T4 [Mass/Vol] 1.37 ng/dL 0.76-1.46 [facility] Urea nitrogen/Creatinine [Mass ratio] 22.3 mg/mg 10- [facility] No Panel InformationOrdered By: Dr. Farias on 04-08-2022 Estimated GFR (MDRD) Amer 68 mL/min >[address] [facility] Comment on above: GFR Calc Estimated GFR (MDRD) Non-Af Amer 56 mL/min >[address] [facility] Comment on above: Non- GFR Calc Thyroid Stimulating Hormone (TSH) 0.97 uIU/mL 0.358-3.[address] [facility] Serum or plasma calcium peng urement (mass/volume)Ordered By: Dr. Farias on 04-08-2022 Calcium [Mass/Vol] 8.5 mg/dL 8.5-10.1 [facility] Serum or plasma creatinine m easurement (mass/volume)Ordered By: Dr. Farias on 04-08-2022 Creatinine [Mass/Vol] 1.03 mg/dL 0.55-1.02 [facility] Comment on above: The validity of the calculated GFR & GFRAA in patients over 70 years has not been determined. Clinical correlation is essential. Serum or plasma urea nitroge n measurement (mass/volume)Ordered By: Dr. Farias on 04-08-2022 Urea nitrogen [Mass/Vol] 23 mg/dL 7-[address] [facility] Thin prep Papanicolaou smear with manual screeningOrdered By: Dr. Farias on 04-08-2022 Thin prep Papanicolaou smear with manual screening 7 5-[address] [facility] Absolute lymphocyte countOrd ered By: Dr. Ahmadi on 02-03-2022 Lymphocytes Auto (Unsp spec) [#/Vol] 1.41 10*3/uL 0.83-4.[address] [facility] Basophil percentageOrdered B y: Dr. Ahmadi on 02-03-2022 Basophils/100 WBC (Bld) 0.8 % 0-1 [facility] Bilirubin [Mass/Vol] 0.40 mg/dL 0.20-1.00 [facility] Comment on above: For patients on eltr ombopag therapy, use of [place] TBIL is not recommended. Chloride [Moles/Vol] 104 mmol/L 98-107 [facility] Eosinophils/100 WBC (Bld) 1.5 % 0-[address] [facility] Glucose [Mass/Vol] 214 mg/dL 74-106 [facility] Comment on above: Glucose result great er than or equal to 200 mg/dLsuggests DIABETES MELLITUS per A.D.A. criteria. Neutrophils (Bld) [#/Vol] 5.4 10*3/uL 2.0-7.[address] [facility] Neutrophils/100 WBC (Bld) 72.8 % 47-[address] [facility] Potassium [Moles/Vol] 4.1 mmol/L 3.5-5.1 [facility] Protein [Mass/Vol] 7.4 g/dL 6.4-8.2 [facility] Sodium [Moles/Vol] 138 mmol/L 136-145 [facility] WBC (Bld) [#/Vol] 7.5 10*3/uL 4.4-11.0 [facility] Blood erythrocytes count (nu mber/volume)Ordered By: Dr. Ahmadi on 02-03-2022 RBC (Bld) [#/Vol] 4.05 10*6/uL 4.2-5.4 [facility] Blood hemoglobin measurement (mass/volume)Ordered By: Dr. Ahmadi on 02-03-2022 Hemoglobin (Bld) [Mass/Vol] 12.5 g/dL 12.0-15.[address] [facility] Blood lymphocytes/100 leukoc ytesOrdered By: Dr. Ahmadi on 02-03-2022 Lymphocytes/100 WBC (Bld) 18.9 % 19-[address] [facility] Blood monocytes/100 leukocyt esOrdered By: Dr. Ahmadi on 02-03-2022 Monocytes/100 WBC (Bld) 5.6 % 0-10 [facility] Blood platelet mean volumeOr dered By: Dr. Ahmadi on 02-03-2022 Platelet mean volume (Bld) [Entitic vol] 10.0 fL 6.2-12.[address] [facility] Determination of erythrocyte mean corpuscular volume (MCV)Ordered By: Dr. Ahmadi on 02-03-2022 MCV (RBC) [Entitic vol] 91.1 fL 81-99 [facility] Hematocrit Auto (Bld) [Volum e fraction]Ordered By: Dr. Ahmadi on 02-03-2022 Hematocrit (Bld) [Volume fraction] 36.9 % 37-[address] [facility] Laboratory - Chemistry and C hemistry - challengeOrdered By: Dr. Ahmadi on 02-03-2022 ALP [Catalytic activity/Vol] 127 U/L 45-[address] [facility] ALT [Catalytic activity/Vol] 42 U/L 13-[address] [facility] CO2 [Moles/Vol] 27.0 mmol/L 21.0-32.[address] [facility] Globulin (S) [Mass/Vol] 3.5 g/dL 2.2-4.2 [facility] Urea nitrogen/Creatinine [Mass ratio] 15.9 mg/mg 10-[address] [facility] Laboratory - Hematology and Cell countsOrdered By: Dr. Ahmadi on 02-03-2022 Erythrocyte distribution width (RBC) [Entitic vol] 44.3 fL 35.1-43.[address] [facility] Erythrocyte distribution width (RBC) [Ratio] 13.2 % 11.6-14.[address] [facility] Immature granulocytes/100 WBC (Bld) 0.400 % 0.0-0.[address] [facility] Comment on above: IG% - Immature Granu locytes (promyelocytes, myelocytes and metamyelocytes) > 1% indicates that a LEFT SHIFT is Present. MCH (RBC) [Entitic mass] 30.9 pg 27.0-32.[address] [facility] Nucleated RBC/100 WBC (Bld) [Ratio] 0 % 0-[address] [facility] MCHC Auto (RBC) [Mass/Vol]Or dered By: Dr. Ahmadi on 02-03-2022 MCHC (RBC) [Mass/Vol] 33.9 g/dL 32-36 [facility] No Panel InformationOrdered By: Dr. Ahmadi on 02-03-2022 Estimated Creatinine Clearance Calc 42.28 ml/min [facility] Estimated GFR (MDRD) Amer 61 mL/min >[address] [facility] Comment on above: GFR Calc Estimated GFR (MDRD) Non-Af Amer 51 mL/min >[address] [facility] Comment on above: Non- GFR Calc Platelets bldOrdered By: Dr. Ahmadi on 02-03-2022 Platelets (Bld) [#/Vol] 293 10*3/uL 150-[address] [facility] Serum or plasma albumin peng urement (mass/volume)Ordered By: Dr. Ahmadi on 02-03-2022 Albumin [Mass/Vol] 3.9 g/dL 3.2-5.0 [facility] Serum or plasma albumin/glob ulin mass ratioOrdered By: Dr. Ahmadi on 02-03-2022 Albumin/Globulin [Mass ratio] 1.1 {ratio} 0.9-2.[address] [facility] Serum or plasma calcium peng urement (mass/volume)Ordered By: Dr. Ahmadi on 02-03-2022 Calcium [Mass/Vol] 9.2 mg/dL 8.5-10.1 [facility] Serum or plasma creatinine m easurement (mass/volume)Ordered By: Dr. Ahmadi on 02-03-2022 Creatinine [Mass/Vol] 1.13 mg/dL 0.55-1.02 [facility] Comment on above: The validity of the calculated GFR & GFRAA in patients over 70 years has not been determined. Clinical correlation is essential. Serum or plasma urea nitroge n measurement (mass/volume)Ordered By: Dr. Ahmadi on 02-03-2022 Urea nitrogen [Mass/Vol] 18 mg/dL 7-[address] [facility] Thin prep Papanicolaou smear with manual screeningOrdered By: Dr. Ahmadi on 02-03-2022 Thin prep Papanicolaou smear with manual screening 21 U/L 15-[address] [facility] Thin prep Papanicolaou smear with manual screening 7 5-[address] [facility] Thin prep Papanicolaou smear with manual screening 163 U/L 84-[address] [facility] Basophil percentageOrdered B y: Dr. Farias on 01-07-2022 Chloride [Moles/Vol] 106 mmol/L 98-107 [facility] Glucose [Mass/Vol] 147 mg/dL 74-106 [facility] Comment on above: Fasting Glucose resu lt greater than or equal to 126 mg/dL suggests DIABETES MELLITUS per A.D.A. criteria. Potassium [Moles/Vol] 4.3 mmol/L 3.5-5.1 [facility] Sodium [Moles/Vol] 137 mmol/L 136-145 [facility] Laboratory - Chemistry and C hemistry - challengeOrdered By: Dr. Farias on 01-07-2022 CO2 [Moles/Vol] 26.0 mmol/L 21.0-32.[address] [facility] Free T4 [Mass/Vol] 1.51 ng/dL 0.76-1.46 [facility] Urea nitrogen/Creatinine [Mass ratio] 22.5 mg/mg 10-[address] [facility] No Panel InformationOrdered By: Dr. Farias on 01-07-2022 Estimated GFR (MDRD) Amer 76 mL/min >[address] [facility] Comment on above: GFR Calc Estimated GFR (MDRD) Non-Af Amer 63 mL/min >[address] [facility] Comment on above: Non- GFR Calc Thyroid Stimulating Hormone (TSH) 0.41 uIU/mL 0.358-3.[address] [facility] Serum or plasma calcium peng urement (mass/volume)Ordered By: Dr. Farias on 01-07-2022 Calcium [Mass/Vol] 8.9 mg/dL 8.5-10.1 [facility] Serum or plasma creatinine m easurement (mass/volume)Ordered By: Dr. Farias on 01-07-2022 Creatinine [Mass/Vol] 0.93 mg/dL 0.55-1.02 [facility] Comment on above: The validity of the calculated GFR & GFRAA in patients over 70 years has not been determined. Clinical correlation is essential. Serum or plasma urea nitroge n measurement (mass/volume)Ordered By: Dr. Farias on 01-07-2022 Urea nitrogen [Mass/Vol] 21 mg/dL 7-[address] [facility] Thin prep Papanicolaou smear with manual screeningOrdered By: Dr. Farias on 01-07-2022 Thin prep Papanicolaou smear with manual screening 5 5-[address] [facility] Cervical or vagninal specime n microscopic examination by cytology stain (reported asOrdered By: Dr. Bates on 01-05-2022 Cytology report Cyto stain Doc (Cvx/Vag) Comment . [facility] Comment on above: The Pap smear is a s creening test designed to aid in thedetection of premalignant and malignant conditions of theuterine cervix. It is not a diagnostic procedure andshould not be used as the sole means of detecting cervicalcancer. Both false-positive and false-negative reports dooccur. Detection in cervical specim en of any of human papilloma virus (HPV) 16, 18, 31, 33,Ordered By: Dr. Bates on 01-05-2022 HPV 16+18+31+33+35+39+45+51+ 52+56+58+59+66+68 DNA Probe+sig amp Ql (Cvx) Negative Negative [facility] Comment on above: This nucleic acid am plification test detects fourteen high-risk HPV types (16,18,31,33,35,39,45,51,52,56,58,59,66,68)without differentiation.HPV Genotype ReflexCriteria not met, HPV Genotype not performed. Laboratory - CytologyOrdered By: Dr. Bates on 01-05-2022 Disk Recordist Cyto stain Nom (Cvx/Vag) [ID] Comment . [facility] Comment on above: Mal Scanlon, Community Support Worker (ASCP) Laboratory - Miscellaneous t estsOrdered By: Dr. Bates on 01-05-2022 Service comment (Unsp spec) [Interp] Comment . [facility] Comment on above: This liquid based Th inPrep(R) pap test was screened withthe use of an image guided system. Service comment (Unsp spec) [Interp] . . [facility] No Panel InformationOrdered By: Dr. Bates on 01-05-2022 Pathology report final diagnosis Narrative Comment . [facility] Comment on above: NEGATIVE FOR INTRAEP ITHELIAL LESION OR MALIGNANCY.CELLULAR CHANGES ASSOCIATED WITH INFLAMMATION ARE PRESENT.CELLULAR CHANGES ASSOCIATED WITH ATROPHY ARE PRESENT. Basophil percentageon 2021 Chloride [Moles/Vol] 106 mmol/L 98-107 [facility] Work Phone: Glucose [Mass/Vol] 179 mg/dL 74-106 [facility] Work Phone: Comment on above: Fasting Glucose resu lt greater than or equal to 126 mg/dL suggests DIABETES MELLITUS per A.D.A. criteria. Potassium [Moles/Vol] 3.7 mmol/L 3.5-5.1 [facility] Work Phone: Sodium [Moles/Vol] 140 mmol/L 136-145 [facility] Work Phone: Laboratory - Chemistry and C hemistry - challengeon 10-05-2021 CO2 [Moles/Vol] 28.0 mmol/L 21.0-32.[address] [facility] Work Phone: Free T4 [Mass/Vol] 1.00 ng/dL 0.76-1.46 [facility] Work Phone: Urea nitrogen/Creatinine [Mass ratio] 15.3 mg/mg 10-[address] [facility] Work Phone: No Panel Informationon 10-05 Estimated GFR (MDRD) Amer 55 mL/min >[address] [facility] Work Phone: Comment on above: GFR Calc Estimated GFR (MDRD) Non-Af Amer 46 mL/min >[address] [facility] Work Phone: Comment on above: Non- GFR Calc Thyroid Stimulating Hormone (TSH) 7.78 uIU/mL 0.358-3.[address] [facility] Work Phone: Serum or plasma calcium peng urement (mass/volume)on 10-05-2021 Calcium [Mass/Vol] 9.1 mg/dL 8.5-10.1 [facility] Work Phone: Serum or plasma creatinine m easurement (mass/volume)on 10-05-2021 Creatinine [Mass/Vol] 1.24 mg/dL 0.55-1.02 [facility] Work Phone: Comment on above: The validity of the calculated GFR & GFRAA in patients over 70 years has not been determined. Clinical correlation is essential. Serum or plasma urea nitroge n measurement (mass/volume)on 10-05-2021 Urea nitrogen [Mass/Vol] 19 mg/dL 7-[address] [facility] Work Phone: Thin prep Papanicolaou smear with manual screeningon 10-05-2021 Thin prep Papanicolaou smear with manual screening 6 5-[address] [facility] Work Phone: Erythrocyte distribution wid th standard deviationon 08-10-2017 Erythrocyte distribution width (RBC) [Entitic vol] 42.9 fL 35.1-43.[address] [facility] Laboratory - Hematology and Cell countson 08-10-2017 Erythrocyte distribution width (RBC) [Ratio] 12.9 % 11.6-14.[address] [facility] Total cell counton 8 Cells counted Mol[employer] (Bld/Tiss) [#] Not Reportable [facility] Vital Signs Date Time Vital Sign Value Performing Clinician Faci lity 06-05-2024 14:25-0400 Body height 165.[address] Teodoro Farias MD Work Phone: [facility] 06-05-2024 14:24-0400 Body mass index (BMI) [Ratio] 27.3 kg/m2 Dr. Teodoro Farias MD Work Phone: 2(097)242-290813 [place] [address] 06-05-2024 14:24-0400 Body weight 74.[address] Teodoro Farias MD Work Phone: 0(054)493-650813 [place] [address] 06-05-2024 14:24-0400 Diastolic blood pressure 79 mm[Hg] Dr. Teodoro Farias MD Work Phone: [facility] 06-05-2024 14:24-0400 Heart rate 87 /min Dr. Teodoro Farias MD Work Phone: [facility] 06-05-2024 14:24-0400 Respiratory rate 16 /min Dr. Teodoro Farias MD Work Phone: [facility] 06-05-2024 14:24-0400 Systolic blood pressure 123 mm[Hg] Dr. Teodoro Farias MD Work Phone: [facility] 07-04-2023 12:57-0400 Body height 165.[address] Teodoro Farias Work Phone: [facility] 07-04-2023 12:57-0400 Body mass index (BMI) [Ratio] 29.9 kg/m2 Dr. Teodoro Farias Work Phone: [facility] 07-04-2023 12:57-0400 Body weight 81.[address] Teodoro Farias Work Phone: [facility] 07-04-2023 12:57-0400 Diastolic blood pressure 73 mm[Hg] Dr. Teodoro Farias Work Phone: [facility] 07-04-2023 12:57-0400 Heart rate 69 /min Dr. Teodoro Farias Work Phone: 2(118)138-732228 [place] [address] 07-04-2023 12:57-0400 Respiratory rate 16 /min Dr. Teodoro Farias Work Phone: 7(893)370-294133 [address] 07-04-2023 12:57-0400 Systolic blood pressure 134 mm[Hg] Dr. Teodoro Farias Work Phone: 5(786)409-571028 [place] [address] 06-06-2023 00:24-0400 Body weight 82.[address] Teodoro Farias Work Phone: 2(784)997-131028 [place] [address] 05-20-2023 08:36-0400 Body height 165.[address] Akbar Farias Work Phone: 1(364)127-334228 [place] [address] 05-20-2023 08:36-0400 Body weight 82.[address] Akbar Farias Work Phone: 5(381)036-274228 [place] [address] 04-22-2023 09:04-0500 Body height 165.[address] Akbar Farias Work Phone: 6(549)259-069528 [place] [address] 04-22-2023 09:04-0500 Body weight 82.[address] Akbar Farias Work Phone: 7(532)574-179733 [address] 04-05-2023 10:23-0500 Diastolic blood pressure 50 mm[Hg] Dr. Akbar Farias Work Phone: 1(895)102-381333 [address] 04-05-2023 10:23-0500 Heart rate 73 /min Dr. Akbar Farias Work Phone: [facility] 04-05-2023 10:23-0500 Systolic blood pressure 83 mm[Hg] Dr. Akbar Farias Work Phone: 5(406)413-558913 [place] [address] 04-05-2023 10:08-0500 Body height 165.[address] Akbar Farias Work Phone: [facility] 04-05-2023 10:08-0500 Body mass index (BMI) [Ratio] 29.9 kg/m2 Dr. Akbar Farias Work Phone: [facility] 04-05-2023 10:08-0500 Body weight 81.[address] Akbar Farias Work Phone: [facility] 04-05-2023 10:08-0500 Respiratory rate 18 /min Dr. Akbar Farias Work Phone: [facility] 03-22-2023 09:30-0500 Body mass index (BMI) [Ratio] 30.2 kg/m2 Dr. Akbar Farias Work Phone: [facility] 03-22-2023 09:30-0500 Body weight 82.[address] Akbar Farias Work Phone: [facility] 03-22-2023 09:15-0500 Body height 165.[address] Akbar Farias Work Phone: [facility] 03-22-2023 09:07-0500 Diastolic blood pressure 83 mm[Hg] Dr. Akbar Farias Work Phone: [facility] 03-22-2023 09:07-0500 Heart rate 87 /min Dr. Akbar Farias Work Phone: [facility] 03-22-2023 09:07-0500 SaO2% (BldA) [Mass fraction] 97 % Dr. Akbar Farias Work Phone: [facility] 03-22-2023 09:07-0500 Systolic blood pressure 148 mm[Hg] Dr. Akbar Farias Work Phone: [facility] 03-11-2023 12:58-0500 Body temperature 98.4 [degF] Dr. Akbar Farias Work Phone: [facility] 03-11-2023 12:58-0500 Diastolic blood pressure 86 mm[Hg] Dr. Akbar Farias Work Phone: [facility] 03-11-2023 12:58-0500 Heart rate 77 /min Dr. Akbar Farias Work Phone: [facility] 03-11-2023 12:58-0500 Respiratory rate 18 /min Dr. Akbar Farias Work Phone: [facility] 03-11-2023 12:58-0500 SaO2% (BldA) [Mass fraction] 98 % Dr. Akbar Fraias Work Phone: [facility] 03-11-2023 12:58-0500 Systolic blood pressure 145 mm[Hg] Dr. Akbar Farias Work Phone: [facility] 03-11-2023 03:01-0500 Body mass index (BMI) [Ratio] 29.7 kg/m2 Dr. Akbar Farias Work Phone: [facility] 03-11-2023 03:01-0500 Body weight 81.[address] Akbar Farias Work Phone: [facility] 03-09-2023 21:33-0500 Body height 165.[address] Akbar Farias Work Phone: [facility] 03-09-2023 20:01-0500 Diastolic blood pressure 86 mm[Hg] Dr. Akbar Farias Work Phone: [facility] 03-09-2023 20:01-0500 Systolic blood pressure 141 mm[Hg] Dr. Akbar Farias Work Phone: [facility] 03-09-2023 19:47-0500 Heart rate 110 /min Dr. Akbar Farias Work Phone: [facility] 03-09-2023 19:47-0500 Respiratory rate 17 /min Dr. Akbar Farias Work Phone: [facility] 03-09-2023 19:47-0500 SaO2% (BldA) [Mass fraction] 99 % Dr. Akbar Farias Work Phone: [facility] 03-09-2023 19:24-0500 Inhaled oxygen flow rate 2 L/min Dr. Akbar Farias Work Phone: [facility] 03-09-2023 19:21-0500 Body height 165.[address] Akbar Farias Work Phone: [facility] 03-09-2023 19:21-0500 Body mass index (BMI) [Ratio] 30.2 kg/m2 Dr. Akbar Farias Work Phone: [facility] 03-09-2023 19:21-0500 Body temperature 97.9 [degF] Dr. Akbar Farias Work Phone: [facility] 03-09-2023 19:21-0500 Body weight 82.[address] Akbar Farias Work Phone: [facility] 01-31-2023 11:16-0500 Body mass index (BMI) [Ratio] 30.4 kg/m2 Dr. Akbar Farias Work Phone: [facility] 01-31-2023 11:16-0500 Body temperature 98.4 [degF] Dr. Akbar Farias Work Phone: [facility] 01-31-2023 11:16-0500 Body weight 83.[address] Akbar Farias Work Phone: [facility] 01-31-2023 11:16-0500 Diastolic blood pressure 61 mm[Hg] Dr. Akbar Farias Work Phone: [facility] 01-31-2023 11:16-0500 Heart rate 85 /min Dr. Akbar Farias Work Phone: [facility] 01-31-2023 11:16-0500 Respiratory rate 18 /min Dr. Akbar Farias Work Phone: [facility] 01-31-2023 11:16-0500 SaO2% (BldA) [Mass fraction] 96 % Dr. Akbar Farias Work Phone: [facility] 01-31-2023 11:16-0500 Systolic blood pressure 91 mm[Hg] Dr. Akbar Farias Work Phone: [facility] 02-03-2022 13:10-0500 Body height 165.[address] Akbar Farias Work Phone: [facility] 02-03-2022 13:03-0500 Body mass index (BMI) [Ratio] 30.4 kg/m2 Dr. Akbar Farias Work Phone: 9(673)[phone] [place] [address] 02-03-2022 13:03-0500 Body temperature 98.2 [degF] Dr. Akbar Farias Work Phone: [facility] 02-03-2022 13:03-0500 Body weight 83.[address] Akbar Farias Work Phone: [facility] 02-03-2022 13:03-0500 Diastolic blood pressure 79 mm[Hg] Dr. Akbar Farias Work Phone: [facility] 02-03-2022 13:03-0500 Heart rate 84 /min Dr. Akbar Farias Work Phone: [facility] 02-03-2022 13:03-0500 Respiratory rate 16 /min Dr. Akbar Farias Work Phone: [facility] 02-03-2022 13:03-0500 SaO2% (BldA) [Mass fraction] 97 % Dr. Akbar Farias Work Phone: [facility] 02-03-2022 13:03-0500 Systolic blood pressure 147 mm[Hg] Dr. Akbar Farias Work Phone: [phone] [place] [address] 02-12-2020 13:53-0500 Body temperature 97.9 [degF] Dr. Akbar Farias Work Phone: [facility] 02-12-2020 13:53-0500 Body weight 80.[address] Akbar Farias Work Phone: [facility] 02-12-2020 13:53-0500 Diastolic blood pressure 72 mm[Hg] Dr. Akbar Farias Work Phone: [facility] 02-12-2020 13:53-0500 Heart rate 81 /min Dr. Akbar Farias Work Phone: [facility] 02-12-2020 13:53-0500 Respiratory rate 14 /min Dr. Akbar Farias Work Phone: [facility] 02-12-2020 13:53-0500 SaO2% (BldA) [Mass fraction] 97 % Dr. Akbar Farias Work Phone: [facility] 02-12-2020 13:53-0500 Systolic blood pressure 123 mm[Hg] Dr. Akbar Farias Work Phone: [facility] 08-14-2019 15:01-0400 Body mass index (BMI) [Ratio] 29.8 kg/m2 Dr. Akbar Farias Work Phone: [facility] Encounters Encounter Date Encounter Type Care Provider Facility Start: 09-06-2024 Encounter for other preprocedural examination Corey Mckeon [facility] Start: 08-20-2024 End: 08-20-[address] Teodoro Farias MD Work Phone: [facility] Work Phone: Start: 08-20-2024 End: 08-20-[address] Corey Mckeon MD -Cat Scan [facility] Work Phone: Start: 08-20-2024 End: 08-20-2024 ambulatory Teodoro Farias Facility:[facility] Start: 08-16-2024 End: 08-16-2024 ambulatory Teodoro Farias Facility:[facility] Start: 08-16-2024 End: 08-16-2024 Non-patient / Non-visit Dr. Ernesto Tovar MD -[facility] Work Phone: Start: 07-10-2024 End: 07-10-[address] Teodoro Farias MD Work Phone: [facility] Work Phone: Start: 07-10-2024 End: 07-10-[address] Teodoro Farias MD -Laboratory, [facility] Start: 07-10-2024 End: 07-10-2024 ambulatory Teodoro Farias Facility:[facility] Start: 06-29-2024 ambulatory Teodoro Farias Faci lity:[facility] Start: 06-29-2024 Non-patient / Non-visit Dr. Radha ruff MD -[facility] Start: 06-29-2024 End: 06-29-[address] Radha Hammonds MD -Cardiovascular Services Work Phone: Start: 06-29-2024 End: 06-29-2024 ambulatory Radha Cassius Facility:[facility] Start: 06-11-2024 End: 06-11-[address] Teodoro Farias MD Work Phone: [facility] Work Phone: Start: 06-11-2024 End: 06-11-[address] Radha Hammnods MD -Laboratory Work Phone: Start: 06-11-2024 End: 06-11-2024 ambulatory Radha Hammonds Facility:[facility] Start: 06-05-2024 End: 06-05-[address] Radha Hammonds MD -[facility] Work Phone: Start: 06-05-2024 End: 06-05-2024 ambulatory Radha Cassius Facility:[facility] Start: 02-15-2024 ambulatory Teodoro Farias Faci lity:[facility] Start: 02-15-2024 End: 02-15-[facility] Start: 02-13-2024 End: 02-13-2024 ambulatory Fliper Dinora Facility:[facility] Start: 02-09-2024 End: 02-09-2024 ambulatory Christpriya Farias Facility:[facility] Start: 02-09-2024 End: 02-09-2024 ambulatory Teodoro Farias Facility:[facility] Start: 01-26-2024 End: 01-26-2024 ambulatory Teodoro Farias Facility:[facility] Start: 01-16-2024 ambulatory Teodoro Farias Faci lity:[facility] Start: 01-02-2024 End: 01-05-2024 [facility] Start: 12-09-2023 End: 12-09-2023 ambulatory Radha Cassius Facility:[facility] Start: 12-06-2023 End: 12-06-2023 ambulatory Radha Cassius Facility:[facility] Start: 10-12-2023 End: 10-12-2023 [facility] Start: 07-05-2023 Non-patient / Non-visit Dr. Kashif Farias Work Phone: [facility] Start: 07-05-2023 End: 07-05-[address] Teodoro Farias Work Phone: [facility] Work Phone: Start: 07-05-2023 End: 07-05-[address] Teodoro Farias Work Phone: [facility]-Cardiovascul ar Services Work Phone: Start: 07-04-2023 End: 07-04-[address] Teodoro Farias Work Phone: [facility] Work Phone: Start: 06-17-2023 End: 07-05-[address] Teodoro Farias Work Phone: [facility] Work Phone: Start: 06-17-2023 End: 07-05-[address] Teodoro Farias Work Phone: [facility]-Cardiac Rehab Work Phone: Start: 06-03-2023 End: 06-05-[address] Akbar Farias Work Phone: [facility] Work Phone: Start: 06-03-2023 End: 06-05-[address] Akbar Farias Work Phone: [facility]-Cardiac Rehab Work Phone: Start: 05-04-2023 End: 05-05-[address] Akbar Farias Work Phone: [facility] Work Phone: Start: 05-04-2023 End: 05-05-[address] Akbar Farias Work Phone: [facility]-Cardiac [facility] Work Phone: Start: 04-06-2023 End: 04-06-[address] Akbar Farias Work Phone: [facility] Work Phone: Start: 04-06-2023 End: 04-06-[address] Akbar Farias Work Phone: [facility]-Cardiac Rehab Work Phone: Start: 04-05-2023 End: 04-05-[address] Akbar Farias Work Phone: [facility] Work Phone: Start: 03-22-2023 End: 03-22-[address] Akbar Farias Work Phone: [facility] Work Phone: Start: 03-22-2023 End: 03-22-[address] Akbar Farias Work Phone: [facility]-Cardiac Rehab Work Phone: Start: 03-17-2023 Non-patient / Non-visit Dr. Kashif Farias Work Phone: [facility] Work Phone: Start: 03-17-[address] Fito Farias Work Phone: [facility]-Cardiovascul ar Services Work Phone: Start: 03-11-2023 Non-patient / Non-visit Dr. Kashif Farias Work Phone: [facility] Work Phone: Start: 03-10-2023 Non-patient / Non-visit Dr. Kashif Farias Work Phone: [facility] Start: 03-09-2023 Non-patient / Non-visit Dr. Kashif Farias Work Phone: [facility] Start: 03-09-2023 End: 03-11-2023 Evaluation and management of inpatient Dr. Akbar Farias Work Phone: [facility]-Progressive Care Unit Work Phone: Start: 03-09-2023 Evaluation and management of inpatient Dr. Akbar Farias Work Phone: [facility]-Intensive Care Unit Work Phone: Start: 03-09-2023 End: 03-09-[address] Akbar Farias Work Phone: [facility] Work Phone: Start: 03-09-2023 End: 03-09-[address] Akbar Farias Work Phone: [facility] Start: 01-31-[address] Omar Farias Work Phone: [facility] Start: 01-31-2023 End: 01-31-[address] Akbar Farias Work Phone: [facility] Work Phone: Start: 01-24-2023 End: 01-24-[address] Akbar Farias Work Phone: [facility]-Outpatient Breast Imaging Work Phone: Start: 10-06-2022 End: 10-06-[address] [facility] Work Phone: Start: 10-06-2022 End: 10-06-2022 Patient encounter procedure [facility] Start: 04-08-2022 End: 04-08-[address] Akbar Farias Work Phone: [facility] Work Phone: Start: 04-08-2022 End: 04-08-[address] Akbar Farias Work Phone: [facility] Start: 02-03-2022 End: 02-03-[address] Akbar Farias Work Phone: [facility] Work Phone: Start: 02-03-2022 End: 02-03-[address] Akbar Farias Work Phone: [facility]-Radiology, [facility] Start: 02-03-[address] Omar Farias Work Phone: [facility] Start: 02-03-2022 End: 02-03-[address] Akbar Farias Work Phone: [facility] Start: 01-22-2022 End: 01-22-[address] Akbar Farias Work Phone: [facility]-Outpatient Breast Imaging Start: 01-07-2022 End: 01-07-2022 Patient encounter procedure [facility]-Laboratory, [facility] Start: 01-05-2022 End: 01-05-[address] [facility] Work Phone: Start: 01-05-2022 End: 01-05-20[address] [facility]-Laboratory, Specimen Start: 10-05-2021 End: 10-05-2021 [facility] Procedures Date Procedure Procedure Detail Performing Clinician Start: 08-20-2024 CT of upper limb wit hout contrast Dr. Teodoro Farias MD Work Phone: Start: 07-10-2024 Vitamin D, 25-hydrox y measurement Dr. Teodoro Farias MD Work Phone: Comment on above: Vitamin D StatusDefi ciency: <20 ng/mL (50nmol/L)Insufficiency: 20-30 ng/mL (50-75 nmol/L)Sufficiency: 30-100 ng/mL (75-250 nmol/L)Toxicity: >100 ng/mL (>250 nmol/L) Start: 03-09-2023 Plain chest X-ray Dr. Taniya Farias Work Phone: Start: 01-24-2023 Screening mammograph y of left breast Dr. Akbar Farias Work Phone: Start: 02-03-2022 Plain chest X-ray Dr. Taniya Farias Work Phone: Start: 01-22-2022 Screening mammograph y of left breast Dr. Akbar Farias Work Phone: Plan of Treatment Date Care Activity Detail Author Start: 09-10-2024 ambulatory Ambulatory Facility:[facility] Start: 03-11-[address] [facility] Start: 03-10-[address] [facility] Start: 03-10-[address] [facility] Work Phone: Start: 03-09-2023 Following clinical pathway protocol [facility] Start: 03-09-[address] [facility] Start: 03-09-2023 Ambulation without limitation [facility] Start: 03-09-[address] [facility] Start: 03-09-2023 Cardiac rehabilitation - phase [address] [facility] Start: 03-09-2023 Cardiac rehabilitation - phase [address] [facility] Start: 03-09-2023 Notification of physician [facility] Start: 03-09-[address] [facility] Start: 03-09-[address] [facility] Start: 03-09-2023 Systemic arterial pressure monitoring [facility] Start: 03-09-2023 Taking patient vital signs [facility] Start: 03-09-2023 Vascular disease risk assessment [facility] Start: 03-09-2023 Vital signs measurements [facility] Start: 03-09-2023 End: 03-09-[address] [facility] Start: 03-09-2023 Hospital admission, emergency, from emergency room, medical nature [facility] Start: 03-09-[address] [facility] Start: 03-09-2023 End: 03-09-[address] [facility] Start: 08-12-[address] [facility] Anion gap measurement [facility] BUN/Creatinine ratio [facility] Calcium [Mass/volume ] in Serum or Plasma [facility] Carbon dioxide, tota l [Moles/volume] in Serum or Plasma [facility] Cardiac event recording [facility] Chloride [Moles/volu me] in Serum or Plasma [facility] Creatinine [Moles/vo lume] in Serum or Plasma [facility] Glucose [Mass/volume ] in Serum or Plasma [facility] Measurement of renal function [facility] MG Breast Diagnostic [facility] Work Phone: MG Breast Diagnostic [facility] NM Whole body Bone Views [facility] Work Phone: NM Whole body Bone Views [facility] Patient Education First Aid: Hea rt Attacks Exercising After a Heart Attack Heart Attack Questions Heart Attack: Leaving the Hospital Heart Attack: Back at Home Heart Attack Resuming Sex [facility] Work Phone: Patient referral [facility] Work Phone: Potassium [Moles/vol ume] in Serum or Plasma [facility] Sodium [Moles/volume ] in Serum or Plasma [facility] Urea nitrogen [Mass/volume] in Serum or Plasma [facility] Breast [facility] Work Phone: US Breast [facility] US Heart [facility] US Heart limited [facility] XR Chest PA and Lateral [facility] Work Phone: XR Chest PA and Lateral [facility] XR Femur 2 Views [facility] Work Phone: XR Femur 2 Views [facility] XR Pelvis and Hip Views [facility] Work Phone: XR Pelvis and Hip Views [facility] Immunizations Immunization Date Immunization Notes Care Provider Fa [facility] 12-03-2016 influenza, injectabl e, quadrivalent, preservative free Dr. Akbar Farias Work Phone: [facility] 12-03-2016 influenza, seasonal, injectable [facility] Payers Date Payer Category Payer Self-pay [id number] 2023 Medicare [id number] 2023 Self-pay [id number] Unknown [id number] Unknown [id number] 2.16.8 [id number] Unknown [id number] 2.16.8 [id number] Unknown [id number] 2.16.8 [id number] Unknown [id number] 2.16.8 [id number] Unknown [id number] 2.16.8 [id number] Unknown [id number] 2.16.8 [id number] Unknown [id number] 2.16.8 [id number] Unknown [id number] 2.16.8 [id number] Unknown [id number] 2.16.8 [id number] Unknown [id number] 2.16.8 [id number] Unknown [id number] 2.16.8 [id number] Unknown [id number] 2.16.8 [id number] Unknown [id number] 2.16.8 [id number] Unknown [id number] 2.16.8 [id number] Unknown [id number] 2.16.8 [id number] Unknown [id number] 2.16.8 [id number] Unknown [id number] 2.16.8 [id number] Unknown [id number] 2.16.8 [id number] Unknown [id number] 2.16.8 [id number] Social History Date Type Detail Facility Start: 02-12-2020 End: 04-05-2023 Tobacco smoking status NHIS Unknown if ever smoked [facility] Start: 1950 Sex Assigned At Female W [facility] Start: 05-16-2017 None [facility] Start: 05-16-2017 Spouse/ Signif icant Other [facility] Start: 04-05-2023 End: 08-13-2024 Tobacco smoking status NHIS Never smoked tobacco (finding) [facility] Start: 06-15-2024 Sex Female (finding) [facility] Medical Equipment Procedure Code Equipment Code Equipment Origin al Text Equipment Identifier Dates 1.35MM TROACR TI P GUIDE WIRE FDA Start: 05-16-2017 LO PRO LOCKING S CREW 3.5MM FDA Start: 05-16-2017 LO PRO LOCKING S CREW 3.5MM FDA Start: 05-16-2017 LO PRO LOCKING S CREW 3.5MM FDA Start: 05-16-2017 LOCKING DISTAL FIBULA PLATE FDA Start: 05-16-2017 QCKFIX [place] CANC SCREW 4.0MM FDA Start: 05-16-2017 bb-sameera FDA Start: 05-16-2017 bb-sameera FDA Start: 05-16-2017 1.35MM TROACR TI P GUIDE WIRE FDA Start: 05-16-2017 2.0MM CALIBRATED DRILL BIT FDA Start: 05-16-2017 2.5MM CALIBRATED DRILL BIT FDA Start: 05-16-2017 3.0MM MICHELLE SCREW FDA Start: 05-16-2017 3.0MM MICHELLE SCREW FDA Start: 05-16-2017 4.0MM CANC [place]LIN QCKFIX SCREW FDA Start: 05-16-2017 K-LESS T-ROPE W/CABLE WEAVER FDA Start: 05-16-2017 LO PRO LOCKING S CREW 3.5MM FDA Start: 05-16-2017 1.35MM TROACR TI P GUIDE WIRE FDA Start: 05-16-2017 LO PRO LOCKING S CREW 3.5MM FDA Start: 05-16-2017 LO PRO LOCKING S CREW 3.5MM FDA Start: 05-16-2017 LO PRO LOCKING S CREW 3.5MM FDA Start: 05-16-2017 LOCKING DISTAL FIBULA PLATE FDA Start: 05-16-2017 QCKFIX FRANKLIN CANC SCREW 4.0MM FDA Start: 05-16-2017 bb-sameera FDA Start: 05-16-2017 bb-sameera FDA Start: 05-16-2017 1.35MM TROACR TI P GUIDE WIRE FDA Start: 05-16-2017 2.0MM CALIBRATED DRILL BIT FDA Start: 05-16-2017 2.5MM CALIBRATED DRILL BIT FDA Start: 05-16-2017 3.0MM MICHELLE SCREW FDA Start: 05-16-2017 3.0MM MICHELLE SCREW FDA Start: 05-16-2017 4.0MM CANC [place]LIN QCKFIX SCREW FDA Start: 05-16-2017 K-LESS T-ROPE W/CABLE WEAVER FDA Start: 05-16-2017 LO PRO LOCKING S CREW 3.5MM FDA Start: 05-16-2017 1.35MM TROACR TI P GUIDE WIRE FDA Start: 05-16-2017 LO PRO LOCKING S CREW 3.5MM FDA Start: 05-16-2017 LO PRO LOCKING S CREW 3.5MM FDA Start: 05-16-2017 LO PRO LOCKING S CREW 3.5MM FDA Start: 05-16-2017 LOCKING DISTAL FIBULA PLATE FDA Start: 05-16-2017 QCKFIX FRANKLIN CANC SCREW 4.0MM FDA Start: 05-16-2017 bb-sameera FDA Start: 05-16-2017 bb-sameera FDA Start: 05-16-2017 1.35MM TROACR TI P GUIDE WIRE FDA Start: 05-16-2017 2.0MM CALIBRATED DRILL BIT FDA Start: 05-16-2017 2.5MM CALIBRATED DRILL BIT FDA Start: 05-16-2017 3.0MM MICHELLE SCREW FDA Start: 05-16-2017 3.0MM MICHELLE SCREW FDA Start: 05-16-2017 4.0MM CANC [place]ANK[place] QCKFIX SCREW FDA Start: 05-16-2017 K-LESS T-ROPE W/CABLE WEAVER FDA Start: 05-16-2017 LO PRO LOCKING S CREW 3.5MM FDA Start: 05-16-2017 1.35MM TROACR TI P GUIDE WIRE FDA Start: 05-16-2017 LO PRO LOCKING S CREW 3.5MM FDA Start: 05-16-2017 LO PRO LOCKING S CREW 3.5MM FDA Start: 05-16-2017 LO PRO LOCKING S CREW 3.5MM FDA Start: 05-16-2017 LOCKING DISTAL FIBULA PLATE FDA Start: 05-16-2017 QCKFIX FRANKLIN CANC SCREW 4.0MM FDA Start: 05-16-2017 bb-sameera FDA Start: 05-16-2017 bb-sameera FDA Start: 05-16-2017 1.35MM TROACR TI P GUIDE WIRE FDA Start: 05-16-2017 2.0MM CALIBRATED DRILL BIT FDA Start: 05-16-2017 2.5MM CALIBRATED DRILL BIT FDA Start: 05-16-2017 3.0MM MICHELLE SCREW FDA Start: 05-16-2017 3.0MM MICHELLE SCREW FDA Start: 05-16-2017 4.0MM CANC [place] QCKFIX SCREW FDA Start: 05-16-2017 K-LESS T-ROPE W/CABLE WEAVER FDA Start: 05-16-2017 LO PRO LOCKING S CREW 3.5MM FDA Start: 05-16-2017 1.35MM TROACR TI P GUIDE WIRE FDA Start: 05-16-2017 LO PRO LOCKING S CREW 3.5MM FDA Start: 05-16-2017 LO PRO LOCKING S CREW 3.5MM FDA Start: 05-16-2017 LO PRO LOCKING S CREW 3.5MM FDA Start: 05-16-2017 LOCKING DISTAL FIBULA PLATE FDA Start: 05-16-2017 QCKFIX FRANKLIN CANC SCREW 4.0MM FDA Start: 05-16-2017 bb-sameera FDA Start: 05-16-2017 bb-sameera FDA Start: 05-16-2017 1.35MM TROACR TI P GUIDE WIRE FDA Start: 05-16-2017 2.0MM CALIBRATED DRILL BIT FDA Start: 05-16-2017 2.5MM CALIBRATED DRILL BIT FDA Start: 05-16-2017 3.0MM MICHELLE SCREW FDA Start: 05-16-2017 3.0MM MICHELLE SCREW FDA Start: 05-16-2017 4.0MM CANC [place]LIN QCKFIX SCREW FDA Start: 05-16-2017 K-LESS T-ROPE W/CABLE WEAVER FDA Start: 05-16-2017 LO PRO LOCKING S CREW 3.5MM FDA Start: 05-16-2017 1.35MM TROACR TI P GUIDE WIRE FDA Start: 05-16-2017 LO PRO LOCKING S CREW 3.5MM FDA Start: 05-16-2017 LO PRO LOCKING S CREW 3.5MM FDA Start: 05-16-2017 LO PRO LOCKING S CREW 3.5MM FDA Start: 05-16-2017 LOCKING DISTAL FIBULA PLATE FDA Start: 05-16-2017 QCKFIX FRANKLIN CANC SCREW 4.0MM FDA Start: 05-16-2017 bb-sameera FDA Start: 05-16-2017 bb-sameera FDA Start: 05-16-2017 1.35MM TROACR TI P GUIDE WIRE FDA Start: 05-16-2017 2.0MM CALIBRATED DRILL BIT FDA Start: 05-16-2017 2.5MM CALIBRATED DRILL BIT FDA Start: 05-16-2017 3.0MM MICHELLE SCREW FDA Start: 05-16-2017 3.0MM MICHELLE SCREW FDA Start: 05-16-2017 4.0MM CANC [place] QCKFIX SCREW FDA Start: 05-16-2017 K-LESS T-ROPE W/CABLE WEAVER FDA Start: 05-16-2017 LO PRO LOCKING S CREW 3.5MM FDA Start: 05-16-2017 1.35MM TROACR TI P GUIDE WIRE FDA Start: 05-16-2017 LO PRO LOCKING S CREW 3.5MM FDA Start: 05-16-2017 LO PRO LOCKING S CREW 3.5MM FDA Start: 05-16-2017 LO PRO LOCKING S CREW 3.5MM FDA Start: 05-16-2017 LOCKING DISTAL FIBULA PLATE FDA Start: 05-16-2017 QCKFIX FRANKLIN CANC SCREW 4.0MM FDA Start: 05-16-2017 bb-sameera FDA Start: 05-16-2017 bb-sameera FDA Start: 05-16-2017 1.35MM TROACR TI P GUIDE WIRE FDA Start: 05-16-2017 2.0MM CALIBRATED DRILL BIT FDA Start: 05-16-2017 2.5MM CALIBRATED DRILL BIT FDA Start: 05-16-2017 3.0MM MICHELLE SCREW FDA Start: 05-16-2017 3.0MM MICHELLE SCREW FDA Start: 05-16-2017 4.0MM CANC [place] QCKFIX SCREW FDA Start: 05-16-2017 K-LESS T-ROPE W/CABLE WEAVER FDA Start: 05-16-2017 LO PRO LOCKING S CREW 3.5MM FDA Start: 05-16-2017 Drug-eluting coronary artery stent, jno-ejxicoqrbdssy-bn lymer-coated [id number] FDA Start: 03-10-2023 1.35MM TROACR TI P GUIDE WIRE FDA Start: 05-16-2017 LO PRO LOCKING S CREW 3.5MM FDA Start: 05-16-2017 LO PRO LOCKING S CREW 3.5MM FDA Start: 05-16-2017 LO PRO LOCKING S CREW 3.5MM FDA Start: 05-16-2017 LOCKING DISTAL FIBULA PLATE FDA Start: 05-16-2017 QCKFIX FRANKLIN CANC SCREW 4.0MM FDA Start: 05-16-2017 bb-sameera FDA Start: 05-16-2017 bb-sameera FDA Start: 05-16-2017 1.35MM TROACR TI P GUIDE WIRE FDA Start: 05-16-2017 2.0MM CALIBRATED DRILL BIT FDA Start: 05-16-2017 2.5MM CALIBRATED DRILL BIT FDA Start: 05-16-2017 3.0MM MICHELLE SCREW FDA Start: 05-16-2017 3.0MM MICHELLE SCREW FDA Start: 05-16-2017 4.0MM CANC [place] QCKFIX SCREW FDA Start: 05-16-2017 K-LESS T-ROPE W/CABLE WEAVER FDA Start: 05-16-2017 LO PRO LOCKING S CREW 3.5MM FDA Start: 05-16-2017 1.35MM TROACR TI P GUIDE WIRE FDA Start: 05-16-2017 LO PRO LOCKING S CREW 3.5MM FDA Start: 05-16-2017 LO PRO LOCKING S CREW 3.5MM FDA Start: 05-16-2017 LO PRO LOCKING S CREW 3.5MM FDA Start: 05-16-2017 LOCKING DISTAL FIBULA PLATE FDA Start: 05-16-2017 QCKFIX FRANKLIN CANC SCREW 4.0MM FDA Start: 05-16-2017 bb-sameera FDA Start: 05-16-2017 bb-sameera FDA Start: 05-16-2017 1.35MM TROACR TI P GUIDE WIRE FDA Start: 05-16-2017 2.0MM CALIBRATED DRILL BIT FDA Start: 05-16-2017 2.5MM CALIBRATED DRILL BIT FDA Start: 05-16-2017 3.0MM MICHELLE SCREW FDA Start: 05-16-2017 3.0MM MICHELLE SCREW FDA Start: 05-16-2017 4.0MM CANC [place] QCKFIX SCREW FDA Start: 05-16-2017 K-LESS T-ROPE W/CABLE WEAVER FDA Start: 05-16-2017 LO PRO LOCKING S CREW 3.5MM FDA Start: 05-16-2017 1.35MM TROACR TI P GUIDE WIRE FDA Start: 05-16-2017 LO PRO LOCKING S CREW 3.5MM FDA Start: 05-16-2017 LO PRO LOCKING S CREW 3.5MM FDA Start: 05-16-2017 LO PRO LOCKING S CREW 3.5MM FDA Start: 05-16-2017 LOCKING DISTAL FIBULA PLATE FDA Start: 05-16-2017 QCKFIX FRANKLIN CANC SCREW 4.0MM FDA Start: 05-16-2017 bb-sameera FDA Start: 05-16-2017 bb-sameera FDA Start: 05-16-2017 1.35MM TROACR TI P GUIDE WIRE FDA Start: 05-16-2017 2.0MM CALIBRATED DRILL BIT FDA Start: 05-16-2017 2.5MM CALIBRATED DRILL BIT FDA Start: 05-16-2017 3.0MM MICHELLE SCREW FDA Start: 05-16-2017 3.0MM MICHELLE SCREW FDA Start: 05-16-2017 4.0MM CANC [place] QCKFIX SCREW FDA Start: 05-16-2017 K-LESS T-ROPE W/CABLE WEAVER FDA Start: 05-16-2017 LO PRO LOCKING S CREW 3.5MM FDA Start: 05-16-2017 1.35MM TROACR TI P GUIDE WIRE FDA Start: 05-16-2017 LO PRO LOCKING S CREW 3.5MM FDA Start: 05-16-2017 LO PRO LOCKING S CREW 3.5MM FDA Start: 05-16-2017 LO PRO LOCKING S CREW 3.5MM FDA Start: 05-16-2017 LOCKING DISTAL FIBULA PLATE FDA Start: 05-16-2017 QCKFIX FRANKLIN CANC SCREW 4.0MM FDA Start: 05-16-2017 bb-sameera FDA Start: 05-16-2017 bb-sameera FDA Start: 05-16-2017 1.35MM TROACR TI P GUIDE WIRE FDA Start: 05-16-2017 2.0MM CALIBRATED DRILL BIT FDA Start: 05-16-2017 2.5MM CALIBRATED DRILL BIT FDA Start: 05-16-2017 3.0MM MICHELLE SCREW FDA Start: 05-16-2017 3.0MM MICHELLE SCREW FDA Start: 05-16-2017 4.0MM CANC [place] QCKFIX SCREW FDA Start: 05-16-2017 K-LESS T-ROPE W/CABLE WEAVER FDA Start: 05-16-2017 LO PRO LOCKING S CREW 3.5MM FDA Start: 05-16-2017 1.35MM TROACR TI P GUIDE WIRE FDA Start: 05-16-2017 LO PRO LOCKING S CREW 3.5MM FDA Start: 05-16-2017 LO PRO LOCKING S CREW 3.5MM FDA Start: 05-16-2017 LO PRO LOCKING S CREW 3.5MM FDA Start: 05-16-2017 LOCKING DISTAL FIBULA PLATE FDA Start: 05-16-2017 QCKFIX FRANKLIN CANC SCREW 4.0MM FDA Start: 05-16-2017 bb-sameera FDA Start: 05-16-2017 bb-sameera FDA Start: 05-16-2017 1.35MM TROACR TI P GUIDE WIRE FDA Start: 05-16-2017 2.0MM CALIBRATED DRILL BIT FDA Start: 05-16-2017 2.5MM CALIBRATED DRILL BIT FDA Start: 05-16-2017 3.0MM MICHELLE SCREW FDA Start: 05-16-2017 3.0MM MICHELLE SCREW FDA Start: 05-16-2017 4.0MM CANC FRANKLIN QCKFIX SCREW FDA Start: 05-16-2017 K-LESS T-ROPE W/CABLE WEAVER FDA Start: 05-16-2017 LO PRO LOCKING S CREW 3.5MM FDA Start: 05-16-2017 1.35MM TROACR TI P GUIDE WIRE FDA Start: 05-16-2017 LO PRO LOCKING S CREW 3.5MM FDA Start: 05-16-2017 LO PRO LOCKING S CREW 3.5MM FDA Start: 05-16-2017 LO PRO LOCKING S CREW 3.5MM FDA Start: 05-16-2017 LOCKING DISTAL FIBULA PLATE FDA Start: 05-16-2017 QCKFIX [place]LIN CANC SCREW 4.0MM FDA Start: 05-16-2017 bb-sameera FDA Start: 05-16-2017 bb-sameera FDA Start: 05-16-2017 1.35MM TROACR TI P GUIDE WIRE FDA Start: 05-16-2017 2.0MM CALIBRATED DRILL BIT FDA Start: 05-16-2017 2.5MM CALIBRATED DRILL BIT FDA Start: 05-16-2017 3.0MM MICHELLE SCREW FDA Start: 05-16-2017 3.0MM MICHELLE SCREW FDA Start: 05-16-2017 4.0MM CANC [place]LIN QCKFIX SCREW FDA Start: 05-16-2017 K-LESS T-ROPE W/CABLE WEAVER FDA Start: 05-16-2017 LO PRO LOCKING S CREW 3.5MM FDA Start: 05-16-2017 1.35MM TROACR TI P GUIDE WIRE FDA Start: 05-16-2017 LO PRO LOCKING S CREW 3.5MM FDA Start: 05-16-2017 LO PRO LOCKING S CREW 3.5MM FDA Start: 05-16-2017 LO PRO LOCKING S CREW 3.5MM FDA Start: 05-16-2017 LOCKING DISTAL FIBULA PLATE FDA Start: 05-16-2017 QCKFIX [place]LIN CANC SCREW 4.0MM FDA Start: 05-16-2017 bb-sameera FDA Start: 05-16-2017 bb-sameera FDA Start: 05-16-2017 1.35MM TROACR TI P GUIDE WIRE FDA Start: 05-16-2017 2.0MM CALIBRATED DRILL BIT FDA Start: 05-16-2017 2.5MM CALIBRATED DRILL BIT FDA Start: 05-16-2017 3.0MM MICHELLE SCREW FDA Start: 05-16-2017 3.0MM MICHELLE SCREW FDA Start: 05-16-2017 4.0MM CANC [place] QCKFIX SCREW FDA Start: 05-16-2017 K-LESS T-ROPE W/CABLE WEAVER FDA Start: 05-16-2017 LO PRO LOCKING S CREW 3.5MM FDA Start: 05-16-2017 1.35MM TROACR TI P GUIDE WIRE FDA Start: 05-16-2017 LO PRO LOCKING S CREW 3.5MM FDA Start: 05-16-2017 LO PRO LOCKING S CREW 3.5MM FDA Start: 05-16-2017 LO PRO LOCKING S CREW 3.5MM FDA Start: 05-16-2017 LOCKING DISTAL FIBULA PLATE FDA Start: 05-16-2017 QCKFIX [place] CANC SCREW 4.0MM FDA Start: 05-16-2017 bb-sameera FDA Start: 05-16-2017 bb-sameera FDA Start: 05-16-2017 1.35MM TROACR TI P GUIDE WIRE FDA Start: 05-16-2017 2.0MM CALIBRATED DRILL BIT FDA Start: 05-16-2017 2.5MM CALIBRATED DRILL BIT FDA Start: 05-16-2017 3.0MM MICHELLE SCREW FDA Start: 05-16-2017 3.0MM MICHELLE SCREW FDA Start: 05-16-2017 4.0MM CANC [place] QCKFIX SCREW FDA Start: 05-16-2017 K-LESS T-ROPE W/CABLE WEAVER FDA Start: 05-16-2017 LO PRO LOCKING S CREW 3.5MM FDA Start: 05-16-2017 1.35MM TROACR TI P GUIDE WIRE FDA Start: 05-16-2017 LO PRO LOCKING S CREW 3.5MM FDA Start: 05-16-2017 LO PRO LOCKING S CREW 3.5MM FDA Start: 05-16-2017 LO PRO LOCKING S CREW 3.5MM FDA Start: 05-16-2017 LOCKING DISTAL FIBULA PLATE FDA Start: 05-16-2017 QCKFIX [place]ANKLIN CANC SCREW 4.0MM FDA Start: 05-16-2017 bb-sameera FDA Start: 05-16-2017 bb-sameera FDA Start: 05-16-2017 1.35MM TROACR TI P GUIDE WIRE FDA Start: 05-16-2017 2.0MM CALIBRATED DRILL BIT FDA Start: 05-16-2017 2.5MM CALIBRATED DRILL BIT FDA Start: 05-16-2017 3.0MM MICHELLE SCREW FDA Start: 05-16-2017 3.0MM MICHELLE SCREW FDA Start: 05-16-2017 4.0MM CANC [place] QCKFIX SCREW FDA Start: 05-16-2017 K-LESS T-ROPE W/CABLE WEAVER FDA Start: 05-16-2017 LO PRO LOCKING S CREW 3.5MM FDA Start: 05-16-2017 1.35MM TROACR TI P GUIDE WIRE FDA Start: 05-16-2017 LO PRO LOCKING S CREW 3.5MM FDA Start: 05-16-2017 LO PRO LOCKING S CREW 3.5MM FDA Start: 05-16-2017 LO PRO LOCKING S CREW 3.5MM FDA Start: 05-16-2017 LOCKING DISTAL FIBULA PLATE FDA Start: 05-16-2017 QCKFIX FRANKLIN CANC SCREW 4.0MM FDA Start: 05-16-2017 bb-sameera FDA Start: 05-16-2017 bb-sameera FDA Start: 05-16-2017 1.35MM TROACR TI P GUIDE WIRE FDA Start: 05-16-2017 2.0MM CALIBRATED DRILL BIT FDA Start: 05-16-2017 2.5MM CALIBRATED DRILL BIT FDA Start: 05-16-2017 3.0MM MICHELLE SCREW FDA Start: 05-16-2017 3.0MM MICHELLE SCREW FDA Start: 05-16-2017 4.0MM CANC [place]ANKLIN QCKFIX SCREW FDA Start: 05-16-2017 K-LESS T-ROPE W/CABLE WEAVER FDA Start: 05-16-2017 LO PRO LOCKING S CREW 3.5MM FDA Start: 05-16-2017 Goals Date Patient Goal Desired Activity /State Functional Status Date Assessment Result Facility 03-11-2023 Functional status Ambulates;Up ad mukesh [facility] Work Phone: Mental Status Date Assessment Result Facility 03-11-2023 Cognitive function Voice/Name [facility] Work Phone: 03-09-2023 Cognitive function Voice/Name [facility] Work Phone: Clinical Notes 01-05-2022 to 09-06-2024 Note Date & Type Note Facility 09-06-2024 Note [facility] Medical Records Department [address] [place] [address] History Physical Exam 09/06/24 1702 MR#: [id number] Acct: [id number] Name: ELOISA TSANG Rep #: [id number] : 1950 74 From: Naty LEAHY PCP: Dr. Teodoro Farias MD Status:PRE [facility] [place] [facility] [place] and Physical History and Physical Patient Name: Eloisa TsangDOB: 1950 From: DATE OF PRE-OPERATIVE EXAM: 09/03/2024 DATE OF SURGERY: 09/10/2024 SCHEDULED PROCEDURE: Right reverse total shoulder arthroplasty HISTORY OF PRESENT ILLNESS: The patient presents with a chief complaint of right shoulder pain rated 8/10 at its most severe. The pain is longstanding but has significantly worsened over time. The patient reports particular difficulty during sleep as she is a side sleeper. She experiences significant limitations in activities of daily living, including putting on shirts or jackets, requiring assistance from her . The patient can only raise her right arm to about shoulder level, limiting her ability to perform self-maintenance tasks such as doing her hair, applying makeup, and using a curling iron. The patient's surgical history includes a shoulder injection administered approximately 8 years ago, which was not helpful. She previously found relief with vygp-vhl-tqptlqo anti-inflammatory medications like Aleve. However, following a heart attack in March of the previous year, she was instructed to discontinue these medications due to her concurrent use of Plavix and daily aspirin. Currently, the patient is taking Tylenol, which provides minimal relief. The patient reports unsuccessful previous treatments including the shoulder injection and qnvq-iep-orhlnya anti- inflammatory medications. Tylenol, which she is currently allowed to take, provides minimal relief. The patient expresses readiness to consider more definitive treatment options, given the limited effectiveness of conservative measures. The patient's medical history includes coronary artery disease with a heart attack in March 2023 and diabetes. REVIEW OF SYSTEMS: Review Of Systems: Constitutional: Denies change in appetite, fever and weight change. Cardiovasular: Denies chest pain, heart murmur and irregular heartbeat. Respiratory: Reports cough, but denies pneumonia, shortness of breath, tuberculosis and wheezing. Gastrointestinal: Reports heartburn, but denies constipation, diarrhea, nausea, rectal itching, bloody stools and vomiting. Genitourinary: . (F Genital Sx) . (Urinary Sx) Musculoskeletal: Reports pain, trouble walking and weakness, but denies leg swelling. Skin: Denies Raynaud's, history of shingles and tattoo. Neurological: Reports numbness/tingling but denies ambulatory dysfunction, dizziness and tremor. Psychiatric: Denies anxiety, insomnia and stress. Hematologic/Lymphatic: Reports past transfusion, but denies anemia and bleeding/bruising tendency. Reviewed, no changes. PAST MEDICAL HISTORY: Advance Care Plan: No Advance Directives Effective Date: 06/28/2024 Past Medical History: Medical Problems: Acid Reflux, Arthritis, Diabetes, Heart Attack, High Blood Pressure, Hypercholesterolemia, Osteoporosis, Thyroid Disease, Covid-19 Vaccine, Coronary Artery Disease (CAD), Chronic anticoagulation Cancer - (1994) right breast Accidents: Fracture - bilateral ankles Surgical Hx: Heart Stent - (2023) Dr. Delong Mastectomy - (1994) Tonsillectomy Anesthesia Complications: None Assistive Devices: Glasses Reviewed, no changes. SOCIAL HISTORY: Social History: Marital: .Occupation: Retired.Work Status: Retired.Hand Dominance: Right-handed. Personal Habits: Cigarette Use: Never Smoked Cigarettes.Smokeless Tobacco: Never Used Smokeless Tobacco.E-Cigarette Use: Never used.Alcohol: Denies use.Drug Use: Denies Use.Enjoy Exercising: Exercises 1-3 X/Week. Reviewed, no changes. VITALS: Ht: 66 Wt: 163lb Wt k.937 BMI: 26.3 BP: 130/72 Pulse: 81 Resp: 11 T: 97.9 T: 36.6C Pain Level: 5/10 O2SatR: 94 ALLERGIES: Penicillin - as a child MEDICATIONS: Metformin HCL ER 500 mg 1po qday, Atorvastatin Calcium 80 mg daily, Pramipexole Dihydrochloride 0.5 mg daily, Levothyroxine Sodium 125 mcg 1po qday, Citalopram Hydrobromide 20 mg daily, Carvedilol 12.5 mg daily, Omeprazole 40 mg daily, Clopidogrel Bisulfate 75 mg daily, Aspirin 81 81 mg 1 pill 2x/day by mouth, One A Day Vitamin one daily, Spironolactone 25 mg 1 by mouth every day PRE-OP EXAM: General appearance:NORMAL Other: Eyes: Conjunctivae and lids: NORMAL Pupils: ERR Ears, Nose, Mouth, and Throat: NORMAL Other: Inspection of lips, teeth and gums: NORMAL Other: Neck: Examination of neck: no masses noted. Respiratory: Assessment of respiratory effort: NORMAL Other: Auscultation of lungs: clear to auscultation no wheezes, rhonchi or rales. Cardiovasc (more content not included)... [facility] 08-20-2024 Radiology Diagnostic study note [facility] Imaging Services [address] [place] [address] [id number] Extremity Upper without Contra MR#: [id number] Acct: [id number] Name: ELOISA TSANG Rep #: [id number] : 1950 F 74 From: Apryl Sol MD PCP: Dr. Teodoro Farias MD Status: REG CLI Study:Extremity Upper without Contra Date of Exam: 08/20/24 Exam# [id number] Ordering Dr: Luke Mckeon MD PROCEDURE: EXTREMITY UPPER WITHOUT CONTRA 08/20/2024 REASON FOR EXAM: PAIN IN RIGHT SHOULDER TECHNIQUE: EXTREMITY UPPER WITHOUT CONTRA Coronal and Sagittal reconstruction series were provided. One or more dose reduction techniques were used (e.g., Automated exposure control, adjustment of the mA and/or kV according to patient size, use of iterative reconstruction technique RADIATION DOSE SUMMARY: DLP: 631.07 mGycm COMPARISON: None FINDINGS: There is severe osteoarthritis at the glenohumeral articulation with flattening of the articular surfaces, subcortical cyst formation, and marginal osteophytes. There are multiple corticated osteochondral fragments in the axillary recess with the largest measuring 1.5 cm. The AC joint is aligned without evidence of separation. There is a type 3 acromion with impingement configuration. There is mild supraspinatus muscular atrophy visible. There is no visible pathologic adenopathy. Scar is noted in the right middle lobe and right lung apex. Atherosclerotic calcifications are noted. CT/Extremity Upper without Contra IMPRESSION: There is severe osteoarthritis at the glenohumeral articulation with flattening of the articular surfaces, subcortical cyst formation, and marginal osteophytes. There are multiple corticated osteochondral fragments in the axillary recess with the largest measuring 1.5 cm. There is a type 3 acromion with impingement configuration. Reading [facility] CC: Dr. Teodoro Farias MD; Dr. 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: Signed [facility] 06-05-2024 Evaluation note Diagnosis Onset Date Resolution Coronary artery disease chronic June 05, 2024 2:02pm Hyperlipidemia chronic June 05, 2024 2:02pm Hypertension chronic June 05, 2 025 2:02pm Mitral regurgitation chronic Apri 2024 2:02pm Stented coronary artery March 09, 2022 chronic June 05, 2024 2:02pm Type 2 diabetes mellitus chronic June 05, 2024 2:02pm Ischemic cardiomyopathy resolved June 05, 2024 2:02pm [facility] Work Phone: 1(824) 846-994201-05-2024 Progress note Author Radha Hammonds [facility] March 11, 2023 11:34am Note Date/Time March 11, 2023 11 :34am [facility] Medical Records Department [address] [place] [address] Progress Note - Cardiology 03/11/23 1133 MR#: [id number] Acct: [id number] Name: ELOISA TSANG SUE Rep #:[id number] : 1950 72 From: Radha Hammonds MD PCP: Dr. Akbar Farias MD Status: ADM IN Location: [place] [address]- 1 Subjective Subjective Denies any complaints. No chest pain. No shortness of breath. Objective Data Vital Signs: Vital Signs Temp Pulse Resp BP Pulse Ox O2 Del Method O2 Flow Rate 98.4 F 77 18 145/86 H 98 Room Air 2 03/11/23 09:20 03/11/23 09:20 03/11/23 09:20 03/11/23 09:20 03/11/23 09:20 03/11/23 09:20 03/09/23 19:24 Oxygen Flow Rate (L/min) 2 Oxygen Delivery Method Room Air Weight: 179 lb 0.246 oz Body Mass Index (BMI) 29.7 Intake & Output: Intake and Output for Last 24 Hours 03/09/23 03/10/23 03/11/23 23:59 23:59 23:59 Intake Total 1100 / 1340 490 / 490 Output Total 0 / 0 Balance 0 / 0 1100 / 1340 490 / 490 Lab / Micro Data 03/11/23 05:55 03/11/23 05:55 Labs: Laboratory Results - last 24 hr 03/11/23 05:55: WBC 9.0, RBC 3.63 L, Hgb 10.6 L, Hct 33.1 L, MCV 91.2, MCH 29.2,MCHC 32.0, RDW Std Deviation 44.9 H, RDW Coeff of Nilda 13.4, Plt Count 271, MPV 9.9, Immature Gran % (Auto) 0.300, Neut % (Auto) 64.1, Lymph % (Auto) 22.5, Creek% (Auto) 10.1 H, Eos % (Auto) 2.3, Baso % (Auto) 0.7, Absolute Neuts (auto) 5.8,Absolute Lymphs (auto) 2.03, Nucleated RBC % 0, Sodium 139, Potassium 3.6, Chloride 106, Carbon Dioxide 24.0, Anion Gap 9, BUN 23 H, Creatinine 1.05 H, Estim Creat Clear Calc 44.86, Est GFR (MDRD) Af Amer 67, Est GFR (MDRD) Non-Af 55 L, BUN/Creatinine Ratio 21.9 H, Glucose 149 H, Calcium 8.6, Phosphorus 4.9, Magnesium 1.8, Triglycerides 170, Cholesterol 170, LDL Cholesterol 82, VLDL Cholesterol 34, HDL Cholesterol 54 Cardiology Labs/Tests 03/11/23 05:55: WBC 9.0, RBC 3.63 L, Hgb 10.6 L, Hct 33.1 L, MCV 91.2, MCH 29.2,MCHC 32.0, Plt Count 271, MPV 9.9, Immature Gran % (Auto) 0.300, Neut % (Auto) 64.1, Lymph % (Auto) 22.5, Creek % (Auto) 10.1 H, Eos % (Auto) 2.3, Baso % (Auto)0.7, Absolute Neuts (auto) 5.8, Nucleated RBC % 0, Sodium 139, Potassium 3.6, Chloride 106, Carbon Dioxide 24.0, Anion Gap 9, BUN 23 H, Creatinine 1.05 H, EstGFR (MDRD) Af Amer 67, Est GFR (MDRD) Non-Af 55 L, BUN/Creatinine Ratio 21.9 H, Glucose 149 H, Calcium 8.6, Phosphorus 4.9, Magnesium 1.8, Triglycerides 170, Cholesterol 170, LDL Cholesterol 82, VLDL Cholesterol 34, HDL Cholesterol 54 Rhythm: EKG: ECHO: Stress Test: Cardiac Cath: PCI: CT Surgery: Holter monitor: EPS: PPM: CXR: Chest CT Scan: Radiography Diagnostic Testing: Radiology Impression Echocardiogram 03/09/23 21:16 Interpretation Summary Severe inferior, inferior septal and posterior basal hypokinesis. Estimated LVEF45%. Stage 1 diastolic dysfunction. Mild-Moderate (1-2+) mitral valve insufficiency. Mild tricuspid valve insufficiency. Ordering Physician: Radha Hammonds Performed By: Bhavin Casas RCS Physical Exam Narrative Comfortable. Heart sounds 1 and 2 normal. Chest clear to auscultation bilaterally. Alert oriented x 3. No ankle edema. Assessment & Plan Assessment/Plan (1) ST elevation (STEMI) myocardial infarction: QUALIFIERS: Involved coronary artery: unspecified coronary artery Qualified Code(s): I21.3 - ST elevation (STEMI) myocardial infarction of unspecified site PLAN: Status post percutaneous intervention with drug-eluting stent to the rightcoronary artery. Stable. Continue aspirin. Continue Plavix. (2) Coronary artery disease: PLAN: See #1 above. Aspirin, Plavix, beta-blockers. Continue statins. (3) Hypertension: PLAN: Beta-blockers, angiotensin receptor richie. Start on hydrochlorothiazide. Increase losartan to 100 mg daily. (4) Type 2 diabetes mellitus: PLAN: As per internal medicine. (5) Dyslipidemia: PLAN: Atorvastatin. PLAN: Plan May discharge home from a cardiology standpoint. Follow-up as outpatient in 2 to 4 weeks. 03/11/23 1134 <Electronically signed by Radha Hammonds MD> Cosigner Signature (if applicable): CC: ~ Signed [facility] Work Phone: 1(537) 182-673301-04-2024 Progress note Author Mildred Pedersen [facility] March 10, 2023 8:46am Note Date/Time March 10, 2023 7: 44am [facility] Medical Records Department [address] [place] [address] Progress Note - Hospitalist 03/10/23 0729 MR#: [id number] Acct: [id number] Name: ELOISA TSANG SUE Rep #:[id number] : 1950 72 From: Mildred Pedersen DO PCP: Dr. Akbar Farias MD Status: ADM IN Location: ICU CVU 2-1 Reason for Visit Reason for Visit: Chest pain Subjective Subjective Patient is a 72-year-old white female who presented to the emergency department on 03/09/2023 with chest pain. She reported her symptoms began abruptly at about 7:30 AM and the pain was continuous, burning, and substernal. Her symptoms had been waxing and waning with a heartburn/chest pressure sensation that nothing seemed to improve or worsen. She was seen by Dr. Gooden earlier in the day andwas concern for possible atrial flutter and HI so she was sent to the emergency department. In the emergency department she was noted to have an elevated initial troponin at 938 and an EKG that revealed acute ST segment elevation consistent with an NSTEMI. STEMI team was called and she was taken emergently to the [facility] by Dr. Hammonds and she was noted to have 100% occlusion of the RCA. JHON via PCI to the RCA was performed and she was then transferred to the ICU for ongoing care after stent placement. She is feeling very well today. No complaints. Anxious to go home. I did tellher that would likely monitor for another 24 hours and if she is stable we will be able to discharge her tomorrow. We did discuss the importance of ongoing dual antiplatelet therapy for 12-month period of time and explained to her why she voiced understanding. Objective Data Objective Data Vital Signs: Vital Signs Temp Pulse Resp BP Pulse Ox O2 Del Method O2 Flow Rate 98.4 F 84 20 H 148/83 H 98 Room Air 2 03/10/23 03:00 03/10/23 07:00 03/10/23 07:00 03/10/23 07:00 03/10/23 07:00 03/10/23 07:00 03/09/23 19:24 Oxygen Flow Rate (L/min) 2 Oxygen Delivery Method Room Air Weight: 83.1 kg Body Mass Index (BMI) 30.4 Intake & Output: Intake and Output for Last 24 Hours 03/08/23 03/09/23 03/10/23 23:59 23:59 23:59 Intake Total 500 / 500 Output Total 0 / 0 Balance 0 / 0 500 / 500 Lab / Micro Data 03/10/23 03:09 03/10/23 03:09 Labs: Laboratory Results - last 24 hr 03/09/23 19:35: WBC 13.6 H, RBC 4.13 L, Hgb 12.3, Hct 37.2, MCV 90.1, MCH 29.8, MCHC 33.1, RDW Std Deviation 44.0 H, RDW Coeff of Nilda 13.4, Plt Count 362, MPV 9.7, Immature Gran % (Auto) 0.400, Neut % (Auto) 77.1 H, Lymph % (Auto) 14.5 L, Creek % (Auto) 7.4, Eos % (Auto) 0.2, Baso % (Auto) 0.4, Absolute Neuts (auto) 10.5 H, Absolute Lymphs (auto) 1.97, Nucleated RBC % 0, Sodium 139, Potassium 4.3, Chloride 107, Carbon Dioxide 26.0, Anion Gap 6, BUN 22 H, Creatinine 1.38 H, Estim Creat Clear Calc 34.13, Est GFR (MDRD) Af Amer 49 L, Est GFR (MDRD) Non-Af 40 L, BUN/Creatinine Ratio 15.9, Glucose 144 H, Calcium 9.3, Troponin I High Sens 9290 H* 03/09/23 20:34: Activated Clotting Time 190 H 03/09/23 21:05: Activated Clotting Time 190 H 03/09/23 21:47: Troponin I High Sens 83087 H* 03/10/23 03:09: WBC 13.8 H, RBC 3.68 L, Hgb 11.0 L, Hct 33.2 L, MCV 90.2, MCH 29.9, MCHC 33.1, RDW Std Deviation 44.7 H, RDW Coeff of Nilda 13.4, Plt Count 302,MPV 9.9, Sodium 139, Potassium 3.6, Chloride 104, Carbon Dioxide 25.0, Anion Gap10, BUN 20 H, Creatinine 1.19 H, Estim Creat Clear Calc 39.58, Est GFR (MDRD) AfAmer 58 L, Est GFR (MDRD) Non-Af 48 L, BUN/Creatinine Ratio 16.8, Glucose 153 H,Calcium 8.7, Total Bilirubin 0.50, AST 217 H, ALT 57 H, Alkaline Phosphatase 114, Total Protein 7.2, Albumin 3.7, Globulin 3.5, Albumin/Globulin Ratio 1.1 Radiography Diagnostic Testing: Radiology Impression Chest X-Ray 03/09/23 19:35 IMPRESSION: No acute interval change. Electronically Signed: Zeny Rowell MD at 20:15 EST Reading Location ID and State: [address] [place] [address] , Service support , Physical Exam Const alert, oriented x3, no apparent distress and well nourished Constitutional Narrative: Obese, older, white female, sitting up in bed watching television eating breakfast, appears comfortable and nontoxic HEENT head/scalp atraumatic and moist oral mucous membranes HEENT Narrative: Mallampati 3, no thrush Head and Scalp: normocephalic Resp normal respiratory effort, no retractions, no use of accessory muscles and clearto auscultation bilaterally Auscultation: Negative for rales, rhonchi or wheezes Cardio regular rate, regular rhythm, S1 normal heart sound, S2 normal heart sound, no murmurs, no rub, no gallops and no clicks GI normal to inspection, nondistended, normoactive bowel sounds, soft to palpation and non-tender Extremity no clubbing, cyanosis or edema Extremity Narrative: Pedal pulses are 2+ Neuro oriented x3, moves all extremities and no focal motor deficits Speech: speech normal Psych affect normal Psych Narrative: Eye contact is good, patient interacts appropriately Assessment & Plan Assessment/Plan (1) ST elevation (STEMI) myocardial infarction: QUALIFIERS: Involved coronary artery: unspecified coronary artery Qualified Code(s): I21.3 - ST elevation (STEMI) myocardial infarction of unspecified site (2) Dyslipidemia: (3) Coronary artery disease: (4) Leukocytosis: (5) Anemia: PLAN: Plan STEMI -Status post JHON to RCA on 03/09/2023 -Continue aspirin 81 mg daily -Continue atorvastatin 40 mg nightly -Continue Plavix 75 mg daily -Continue carvedilol but increase to 12.5 mg p.o. twice daily -Continue losartan 50 mg daily -Echocardiogram is pending -Check a.m. lipids -Hemoglobin A1c is pending -Continue to monitor on telemetry for any reperfusion arrhythmias -Cardiology is following-appreciate input Leukocytosis -Suspect reactive -Will monitor Mild anemia -No anemia present on presentation -May be dilutional with fluids given -Will continue to monitor Hypertension -Will hold home amlodipine for now and restart if blood pressure is elevated -Continue carvedilol 3.125 mg twice daily -Continue losartan 50 mg daily -Continue to monitor and adjust antihypertensives as needed Hyperlipidemia -Lipid panel is pending -patient is on atorvastatin 40 mg at at bedtime at baseline -If LDL is greater than 70 will increase atorvastatin to 80 mg nightly DM-2 -Check hemoglobin A1c -Hold home metformin -If echo shows any signs of reduced EF we will start Jardiance -SSI -Cardiac/carb controlled diet -Accu-Cheks as ordered Hypothyroidism -Continue home levothyroxine Restless leg syndrome -It appears the patient may have been on Mirapex previously -this medication has not been confirmed -If confirmed that she is taking we will reinitiate GERD -Continue PPI CKD stage IIIb -Baseline creatinine seems to fluctuate but appears to run between 0.9 and 1.2 most recently -Currently 1.19 -Will watch closely with contrast given for cath -Avoid nephrotoxins as able Osteoarthritis -Recommend avoidance of NSAIDs -As needed Tylenol -Patient was on naproxen as an outpatient History of ductal carcinoma of the right breast -Status postmastectomy in 2004 -Ongoing outpatient surveillance History of skin cancer -Status post Mohs microsurgery Depression -Patient does not appear to be on any home medications for this -Would avoid benzodiazepines and will discontinue Xanax Obesity -BMI is 30.5 -Recommend weight loss -Complicates treatment, prognosis, outcomes DVT prophylaxis -Subcu Lovenox CODE STATUS -No CODE STATUS currently listed -Will have to discuss with patient Charges/Coding Visit Charges Inpatient E&M: 86874 Subs Hosp L2 03/10/23 0846 <Electronically signed by Mildred Pedersen DO> Cosigner Signature (if applicable): CC: ~ Signed [facility] Work Phone: 1(449) 228-651801-04-2024 Progress note Author Radha Hammonds [facility] March 10, 2023 8:31am Note Date/Time March 10, 2023 8: 31am [facility] Medical Records Department [address] [place] [address] Progress Note - Cardiology 03/10/23828 MR#: [id number] Acct: [id number] Name: ELOISA TSANG SUE Rep #:[id number] : 1950 72 From: Radha Hammonds MD PCP: Dr. Akbar Farias MD Status: ADM IN Location: ICU CVICU20 2-1 Subjective Subjective Denies any complaints. No chest pain. No shortness of breath. Objective Data Vital Signs: Vital Signs Temp Pulse Resp BP Pulse Ox O2 Del Method O2 Flow Rate 98.4 F 87 20 H 148/83 H 97 Room Air 2 03/10/23 07:00 03/10/23 07:00 03/10/23 07:00 03/10/23 07:00 03/10/23 07:00 03/10/23 07:00 03/09/23 19:24 Oxygen Flow Rate (L/min) 2 Oxygen Delivery Method Room Air Weight: 183 lb 3.266 oz Body Mass Index (BMI) 30.4 Intake & Output: Intake and Output for Last 24 Hours 03/08/23 03/09/23 03/10/23 23:59 23:59 23:59 Intake Total 500 / 500 Output Total 0 / 0 Balance 0 / 0 500 / 500 Lab / Micro Data 03/10/23 03:09 03/10/23 03:09 Labs: Laboratory Results - last 24 hr 03/09/23 19:35: WBC 13.6 H, RBC 4.13 L, Hgb 12.3, Hct 37.2, MCV 90.1, MCH 29.8, MCHC 33.1, RDW Std Deviation 44.0 H, RDW Coeff of Nilda 13.4, Plt Count 362, MPV 9.7, Immature Gran % (Auto) 0.400, Neut % (Auto) 77.1 H, Lymph % (Auto) 14.5 L, Creek % (Auto) 7.4, Eos % (Auto) 0.2, Baso % (Auto) 0.4, Absolute Neuts (auto) 10.5 H, Absolute Lymphs (auto) 1.97, Nucleated RBC % 0, Sodium 139, Potassium 4.3, Chloride 107, Carbon Dioxide 26.0, Anion Gap 6, BUN 22 H, Creatinine 1.38 H, Estim Creat Clear Calc 34.13, Est GFR (MDRD) Af Amer 49 L, Est GFR (MDRD) Non-Af 40 L, BUN/Creatinine Ratio 15.9, Glucose 144 H, Calcium 9.3, Troponin I High Sens 9290 H* 03/09/23 20:34: Activated Clotting Time 190 H 03/09/23 21:05: Activated Clotting Time 190 H 03/09/23 21:47: Troponin I High Sens 59683 H* 03/10/23 03:09: WBC 13.8 H, RBC 3.68 L, Hgb 11.0 L, Hct 33.2 L, MCV 90.2, MCH 29.9, MCHC 33.1, RDW Std Deviation 44.7 H, RDW Coeff of Nilda 13.4, Plt Count 302,MPV 9.9, Sodium 139, Potassium 3.6, Chloride 104, Carbon Dioxide 25.0, Anion Gap10, BUN 20 H, Creatinine 1.19 H, Estim Creat Clear Calc 39.58, Est GFR (MDRD) AfAmer 58 L, Est GFR (MDRD) Non-Af 48 L, BUN/Creatinine Ratio 16.8, Glucose 153 H,Calcium 8.7, Total Bilirubin 0.50, AST 217 H, ALT 57 H, Alkaline Phosphatase 114, Total Protein 7.2, Albumin 3.7, Globulin 3.5, Albumin/Globulin Ratio 1.1 Cardiology Labs/Tests 03/09/23 19:35: WBC 13.6 H, RBC 4.13 L, Hgb 12.3, Hct 37.2, MCV 90.1, MCH 29.8, MCHC 33.1, Plt Count 362, MPV 9.7, Immature Gran % (Auto) 0.400, Neut % (Auto) 77.1 H, Lymph % (Auto) 14.5 L, Creek % (Auto) 7.4, Eos % (Auto) 0.2, Baso % (Auto) 0.4, Absolute Neuts (auto) 10.5 H, Nucleated RBC % 0, Sodium 139, Potassium 4.3, Chloride 107, Carbon Dioxide 26.0, Anion Gap 6, BUN 22 H, Creatinine 1.38 H, Est GFR (MDRD) Af Amer 49 L, Est GFR (MDRD) Non-Af 40 L, BUN/Creatinine Ratio 15.9, Glucose 144 H, Calcium 9.3 03/10/23 03:09: WBC 13.8 H, RBC 3.68 L, Hgb 11.0 L, Hct 33.2 L, MCV 90.2, MCH 29.9, MCHC 33.1, Plt Count 302, MPV 9.9, Sodium 139, Potassium 3.6, Chloride 104, Carbon Dioxide 25.0, Anion Gap 10, BUN 20 H, Creatinine 1.19 H, Est GFR (MDRD) Af Amer 58 L, Est GFR (MDRD) Non-Af 48 L, BUN/Creatinine Ratio 16.8, Glucose 153 H, Calcium 8.7, Total Bilirubin 0.50 Rhythm: EKG: ECHO: Stress Test: Cardiac Cath: PCI: CT Surgery: Holter monitor: EPS: PPM: CXR: Chest CT Scan: Radiography Diagnostic Testing: Radiology Impression Chest X-Ray 03/09/23 19:35 IMPRESSION: No acute interval change. Electronically Signed: Zeny Rowell MD at 20:15 EST , Physical Exam Narrative Comfortable. Heart sounds 1 and 2 normal. Chest clear to auscultation bilaterally. Alert oriented x 3. No ankle edema. Assessment & Plan Assessment/Plan (1) ST elevation (STEMI) myocardial infarction: QUALIFIERS: Involved coronary artery: unspecified coronary artery Qualified Code(s): I21.3 - ST elevation (STEMI) myocardial infarction of unspecified site PLAN: Status post percutaneous intervention with drug-eluting stent to the rightcoronary artery. Stable. Continue aspirin. Continue Plavix. (2) Coronary artery disease: PLAN: See #1 above. Aspirin, Plavix, beta-blockers. Continue statins. (3) Hypertension: PLAN: Beta-blockers, angiotensin receptor richie. Start on hydrochlorothiazide. Increase carvedilol to 6.25 mg twice daily. (4) Type 2 diabetes mellitus: PLAN: As per internal medicine. (5) Dyslipidemia: PLAN: Atorvastatin. 03/10/23 0831 <Electronically signed by Radha Hammonds MD> Cosigner Signature (if applicable): CC: ~ Signed [facility] Work Phone: 1(475) 849-785501-04-2024 History and physical note Author Jon Jacome [facility] March 10, 2023 7:14am Note Date/Time March 09, 2023 8: 22pm [facility] Medical Records Department [address] [place] [id number] H&P Exam - Hospitalist 03/09/232020 MR#: [id number] Acct: [id number] Name: ELOISA TSANG SUE Rep #:[id number] : 1950 72 From: Jon Aaron DO PCP: Dr. Akbar Farias MD Status: ADM IN Location: ICU CVICU20 2-1 HPI - General General Date of Admission: 03/09/23 Date of Service: 03/09/23 Chief Complaint: Chest Pain with STEMI. HPI Narrative ELOISA TSANG, is a 72 F with a past medial history of essential hypertension, hyperlipidemia, hypothyroidism, obesity; with BMI of 30.3 this admission, diabetes mellitus type 2; of unknown control on metformin, history of stage III-a ductal carcinoma of the right breast; status post right mastectomy (2004), history of skin cancer, history of depression, restless leg syndrome, GERD and osteoarthritis who presents to [facility] ER complaining of chest pain. Ms. Tsang reports her symptoms began with the abrupt onset of chest pain at approximately 7:30 AM but the pain was continuous, burning, substernal, waxing and waning with a heart burn/chest pressure sensation with nothing seeming to make the pain better or worse. She was then seen earlier in the day by Dr. Jean Gooden with concern for possible atrial flutter and HI. Inthe ER she was noted to have an elevated initial troponin of 938 pg/mL with an EKG that revealed acute ST elevation consistent with STEMI. She was then taken for emergent left heart cath by Dr. Hammonds with patient noted to have a ~100% RCAocculsion with subsequent JHON placement and she was then transferred to the ICU for ongoing care for a stay that is expected to be greater than 48 hours. [facility] Medical History Benign breast cyst in female Breast cancer Breast lump in female Depression Ductal carcinoma of breast History of breast cancer History of right breast cancer Hyperlipidemia Hypertension Hypothyroidism Skin cancer Sleep-disordered breathing Thyroid disease Trimalleolar fracture of right ankle Type 2 diabetes mellitus Home Medications atorvastatin 40 mg tablet 40 mg PO QHS 06/02/16 [History Last Taken Unknown] levothyroxine 100 mcg tablet 112 mcg PO DAILY 06/02/16 [History Last Taken 05/16/17 07:30 112 MCG] niacin 500 mg tablet,extended release 24 hr 1,000 mg PO QHS 06/02/16 [History Last Taken Unknown] pramipexole 0.5 mg tablet 0.5 mg PO BID 06/02/16 [History Last Taken 05/16/17 07:30 0.5 MG] losartan 50 mg tablet 50 mg PO DAILY 08/03/16 [History Last Taken 05/16/17 07:30 50 MG] omeprazole 20 mg capsule,delayed release 40 mg PO DAILY 08/03/16 [History Last Taken 05/16/17 07:30 40 MG] calcium carbonate 600 mg-vitamin D3 10 mcg (400 unit) chewable tablet 1 ea PO BID 05/12/17 [History Last Taken Unknown] ewbmglntqarh-Hu-ahnf-minerals 1 ea PO DAILY 05/12/17 [History Last Taken Unknown] naproxen sodium 220 mg tablet 440 mg (2 x 220 mg) PO BID #60 tabs 05/17/17 [Rx Last Taken 05/12/17] acetaminophen 500 mg tablet 500 mg PO BID PRN PRN Pain Or Fever 08/14/19 [History Last Taken Unknown] amlodipine 5 mg tablet 5 mg PO DAILY 08/14/19 [History Last Taken Unknown] metformin 500 mg tablet 1,000 mg PO BID 02/09/21 [History Last Taken Unknown] Allergy/AdvReac Type Severity Reaction Status Date / Time Penicillins [PCN] Allergy Severe Hives Verified 03/09/23 19:23 bee venom protein (honey bee) Allergy Anaphylaxis Verified 03/09/23 19:23 Family History Mother Heart disease Breast cancer Lung cancer Hyperlipidemia Arthritis Diabetes Hypertension Kidney disease Surgical History H/O mastectomy History of ankle surgery History of Mohs micrographic surgery for skin cancer History of reconstruction of right breast Hx of colonoscopy Hx of right mastectomy Hx of tonsillectomy Status post open reduction with internal fixation (ORIF) of fracture of ankle Social History Smoking Status: Never smoker second hand exposure: No alcohol intake: never substance use type: does not use caffeine: Yes what type of physical activity do you participate in: none frequency: does not exercise ROS ROS Narrative Review of systems: Constitutional: Patient denies fevers or chills. Eyes: Patient denies visual changes or discharge from eyes. ENT: Patient denies runny nose, sore throat or ear pain. Cardiovascular: Patient admits to chest pain as noted above. She denies orthopnea or paroxysmal nocturnal dyspnea. Respiratory: Patient admits to shortness of breath with minimal exertion but denies cough. Gastrointestinal: Patient denies abdominal pain, nausea, vomiting, diarrhea or constipation. Genitourinary: Patient denies dysuria, hematuria or urinary frequency. Musculoskeletal: Patient denies arthralgias or myalgias. Integumentary: Patient denies rash or abscess. Neurologic: Patient denies headache, paresthesias or focal neurologic weakness. Endocrine: Patient denies cold intolerance, heat intolerance, polyuria, polyphagia or polydipsia. Hematologic: Patient denies easy bleeding or easy bruisability. Psychiatric: Patient denies uncontrolled depression or anxiety. 14 point review systems otherwise negative except for positives noted above in HPI. Vital Signs Vital Signs Vital Signs: 03/09/23 19:21 03/09/23 19:24 03/09/23 19:47 Temperature 97.9 F Temperature Source Temporal Pulse Rate 109 H 110 H Respiratory Rate 18 17 Blood Pressure 174/84 H 184/95 H Blood Pressure Mean 114 124 Pulse Ox 99 100 99 Oxygen Delivery Method Room Air Nasal Cannula Oxygen Flow Rate (L/min) 2 03/09/23 19:58 03/09/23 20:01 Temperature Temperature Source Pulse Rate Respiratory Rate Blood Pressure 150/93 H 141/86 H Blood Pressure Mean 112 Pulse Ox Oxygen Delivery Method Oxygen Flow Rate (L/min) Weight Weight: 182 lb 1 oz Body Mass Index (BMI) 30.2 Physical Exam Const alert, oriented x3, no apparent distress and average body habitus Constitutional Narrative: Patient is in good spirits. General Appearance: cooperative HEENT normocephalic, head/scalp atraumatic, hearing grossly normal bilaterally and moist oral mucous membranes Eyes PERRL and EOMs intact bilaterally Neck no lymphadenopathy and supple Resp normal respiratory effort, no retractions, no use of accessory muscles and clear to auscultation bilaterally Cardio regular rate and regular rhythm Cardio Narrative: Status postmastectomy on the right. GI normal to inspection, nondistended, normoactive bowel sounds, soft to palpation, non-tender and non-distended GI Narrative: Obese. Extremity normal to inspection Skin Skin Narrative: Status postmastectomy on the right. Patient has no evidence of rash at this time. Neuro oriented x3, CN's II-XII intact bilaterally, moves all extremities and no focal motor deficits Sensorium / Orientation: awake, alert, oriented to person, oriented to place and oriented to time Speech: speech normal Motor Exam: strength 5/5 throughout Psych affect normal Results Medical Records Data Attestation: I reviewed the patient's medical records Lab / Micro Data Attestation: I reviewed the patient's lab results. 03/10/23 03:09 03/10/23 03:09 Labs: Laboratory Results - last 24 hr 03/09/23 19:35: WBC 13.6 H, RBC 4.13 L, Hgb 12.3, Hct 37.2, MCV 90.1, MCH 29.8, MCHC 33.1, RDW Std Deviation 44.0 H, RDW Coeff of Nilda 13.4, Plt Count 362, MPV 9.7, Immature Gran % (Auto) 0.400, Neut % (Auto) 77.1 H, Lymph % (Auto) 14.5 L, Creek % (Auto) 7.4, Eos % (Auto) 0.2, Baso % (Auto) 0.4, Absolute Neuts (auto) 10.5 H, Absolute Lymphs (auto) 1.97, Nucleated RBC % 0 Imagaing Radiology Impression Chest X-Ray 03/09/23 19:35 IMPRESSION: No acute interval change. Electronically Signed: Zeny Rowell MD at 20:15 EST , Assessment & Plan Assessment/Plan (1) ST elevation (STEMI) myocardial infarction: QUALIFIERS: Involved coronary artery: unspecified coronary artery Qualified Code(s): I21.3 - ST elevation (STEMI) myocardial infarction of unspecified site PLAN: Plan 1. STEMI; evidenced by acute ST elevation on EKG and initial troponin of 938 pg/mL - Admit to ICU. Continue aspirin, Plavix, statin and IV heparin. Check echocardiogram to evaluate left ventricular ejection fraction. Finally, cardiology consult from Dr. Hammonds is greatly appreciated with the RCA for ~100% occlusion at left heart cath. 2. Essential hypertension - Continue home regimen as previous please give as needed IV hydralazine for systolic blood pressure greater than 160 mmHg. 3. Hyperlipidemia - Resume statin and check lipid profile in light of #1. 4. Hypothyroidism - Continue Synthroid and check TSH. 5. Obesity; with BMI of 30.3 this admission - Weight loss will be recommended. 6. Diabetes mellitus type 2; of unknown control on metformin - ADA/cardiac diet. Fingerstick blood sugars before every meal and at bedtime + scale insulin. Check hemoglobin A1c to objectively assess quality of diabetic control in light of #1. 7. History of ductal carcinoma of the right breast; status post right mastectomy (2004) - Noted. 8. History of skin cancer; s/p Mohs microsurgery procedure - Noted. 9. History of depression - Continue home medications plus give as needed Xanax for breakthrough symptoms. 10. Restless leg syndrome - Resume pramipexole as previous. 11. GERD - Continue PPI. 12. Osteoarthritis - Stable. Give Tylenol as needed pain. 13. DVT prophylaxis - Patient already on IV heparin for #1. Total time: Approximately 55 minutes. Charges/Coding Visit Charges Inpatient E&M: 69322 Init Hosp L2 03/10/23 0714 <Electronically signed by Jon Whiting DO> Cosigner Signature (if applicable): CC: Dr. Akbar Farias MD; Dr. Jon Whiting DO~ Signed [facility] Work Phone: [phone]) [phone] Consult note Author Radha Hammonds [facility] March 09, 2023 9:29pm Note Date/Time March 09, 2023 9: 29pm [facility] Medical Records Department [address] [place] [address] Consultation - Cardiology 03/09/232120 MR#: [id number] Acct: [id number] Name: ELOISA TSANG SUE Rep #:[id number] : 1950 72 From: Radha Hammonds MD PCP: Dr. Akbar Farias MD Status: ADM IN Location: ICU CVICU20 2-1 Assessment & Plan Assessment/Plan (1) ST elevation (STEMI) myocardial infarction: QUALIFIERS: Involved coronary artery: unspecified coronary artery Qualified Code(s): I21.3 - ST elevation (STEMI) myocardial infarction of unspecified site PLAN: Given the patient's new finding of left bundle branch block, her clinical presentation and elevated troponin, patient was taken emergently to the cardiac catheterization lab. Coronary angiography revealed total occlusion of the rightcoronary artery in its proximal part. Successful aspiration thrombectomy followed by placement of a drug-eluting stent was performed with advent of TEMITOPE-3 flow. Excellent results were noted. Continue aspirin lifelong. Plavix for at least 1 year. Check echocardiogram. (2) Coronary artery disease: PLAN: See #1 above. Aspirin, Plavix, beta-blockers. Continue statins. (3) Hypertension: PLAN: Beta-blockers, angiotensin receptor richie. Start on hydrochlorothiazide. (4) Type 2 diabetes mellitus: PLAN: As per internal medicine. (5) Dyslipidemia: PLAN: Atorvastatin. HPI Consult Data Date of Consult: 03/09/23 HPI Narrative Reason for Consultation: STEMI HPI Narrative: This lady has past medical history significant for diabetes mellitus, dyslipidemia, hypothyroidism and hypertension. She went to her primary care physician's office earlier today with complaints of chest pain. She has had labs drawn. Per patient, her chest pain was relieved after she went back home from her doctor's office. However later she received a call from her physician's office, asking her to go to the emergency room and third troponin drawn at the physicians office or noted to be elevated. Upon arrival in the emergency room, patient has had an ECG done. It showed leftbundle branch block. No previous ECG available. A STEMI alert was called. Denies any previous history of heart disease. [facility] Medical History (Updated 03/09/23 @ 21:[address] Radha Hammonds MD) Benign breast cyst in female Breast cancer Breast lump in female Depression Ductal carcinoma of breast History of breast cancer History of right breast cancer Hyperlipidemia Hypertension Hypothyroidism Skin cancer Sleep-disordered breathing Thyroid disease Trimalleolar fracture of right ankle Type 2 diabetes mellitus Home Medications atorvastatin 40 mg tablet 40 mg PO QHS 06/02/16 [History Last Taken Unknown] levothyroxine 100 mcg tablet 112 mcg PO DAILY 06/02/16 [History Last Taken 05/16/17 07:30 112 MCG] niacin 500 mg tablet,extended release 24 hr 1,000 mg PO QHS 06/02/16 [History Last Taken Unknown] pramipexole 0.5 mg tablet 0.5 mg PO BID 06/02/16 [History Last Taken 05/16/17 07:30 0.5 MG] losartan 50 mg tablet 50 mg PO DAILY 08/03/16 [History Last Taken 05/16/17 07:30 50 MG] omeprazole 20 mg capsule,delayed release 40 mg PO DAILY 08/03/16 [History Last Taken 05/16/17 07:30 40 MG] calcium carbonate 600 mg-vitamin D3 10 mcg (400 unit) chewable tablet 1 ea PO BID 05/12/17 [History Last Taken Unknown] ekxdmvjtksyg-Qp-ehot-minerals 1 ea PO DAILY 05/12/17 [History Last Taken Unknown] naproxen sodium 220 mg tablet 440 mg (2 x 220 mg) PO BID #60 tabs 05/17/17 [Rx Last Taken 05/12/17] acetaminophen 500 mg tablet 500 mg PO BID PRN PRN Pain Or Fever 08/14/19 [History Last Taken Unknown] amlodipine 5 mg tablet 5 mg PO DAILY 08/14/19 [History Last Taken Unknown] metformin 500 mg tablet 1,000 mg PO BID 02/09/21 [History Last Taken Unknown] Allergy/AdvReac Type Severity Reaction Status Date / Time Penicillins [PCN] Allergy Severe Hives Verified 03/09/23 19:23 bee venom protein (honey bee) Allergy Anaphylaxis Verified 03/09/23 19:23 Family History Mother Heart disease Breast cancer Lung cancer Hyperlipidemia Arthritis Diabetes Hypertension Kidney disease Surgical History H/O mastectomy History of ankle surgery History of Mohs micrographic surgery for skin cancer History of reconstruction of right breast Hx of colonoscopy Hx of right mastectomy Hx of tonsillectomy Status post open reduction with internal fixation (ORIF) of fracture of ankle Social History Smoking Status: Never smoker second hand exposure: No alcohol intake: never substance use type: does not use caffeine: Yes what type of physical activity do you participate in: none frequency: does not exercise Physical Exam Narrative Comfortable. No apparent distress. Heart sounds 1 and 2. Chest clear to auscultation. No ankle edema. Risk Stratification Risk Stratification Applicable: No Objective Data Vital Signs: Vital Signs Temp Pulse Resp BP Pulse Ox O2 Del Method O2 Flow Rate 97.9 F 110 H 17 141/86 H 99 Nasal Cannula 2 03/09/23 19:21 03/09/23 19:47 03/09/23 19:47 03/09/23 20:01 03/09/23 19:47 03/09/23 19:24 03/09/23 19:24 Oxygen Flow Rate (L/min) 2 Oxygen Delivery Method Nasal Cannula Weight: 182 lb 1 oz Body Mass Index (BMI) 30.2 Lab / Micro Data 03/09/23 19:35 03/09/23 19:35 Labs: Laboratory Results - last 24 hr 03/09/23 19:35: WBC 13.6 H, RBC 4.13 L, Hgb 12.3, Hct 37.2, MCV 90.1, MCH 29.8, MCHC 33.1, RDW Std Deviation 44.0 H, RDW Coeff of Nilda 13.4, Plt Count 362, MPV 9.7, Immature Gran % (Auto) 0.400, Neut % (Auto) 77.1 H, Lymph % (Auto) 14.5 L, Creek % (Auto) 7.4, Eos % (Auto) 0.2, Baso % (Auto) 0.4, Absolute Neuts (auto) 10.5 H, Absolute Lymphs (auto) 1.97, Nucleated RBC % 0, Sodium 139, Potassium 4.3, Chloride 107, Carbon Dioxide 26.0, Anion Gap 6, BUN 22 H, Creatinine 1.38 H, Estim Creat Clear Calc 34.13, Est GFR (MDRD) Af Amer 49 L, Est GFR (MDRD) Non-Af 40 L, BUN/Creatinine Ratio 15.9, Glucose 144 H, Calcium 9.3, Troponin I High Sens 9290 H* Cardiology Labs/Tests 03/09/23 19:35: WBC 13.6 H, RBC 4.13 L, Hgb 12.3, Hct 37.2, MCV 90.1, MCH 29.8, MCHC 33.1, Plt Count 362, MPV 9.7, Immature Gran % (Auto) 0.400, Neut % (Auto) 77.1 H, Lymph % (Auto) 14.5 L, Creek % (Auto) 7.4, Eos % (Auto) 0.2, Baso % (Auto) 0.4, Absolute Neuts (auto) 10.5 H, Nucleated RBC % 0, Sodium 139, Potassium 4.3, Chloride 107, Carbon Dioxide 26.0, Anion Gap 6, BUN 22 H, Creatinine 1.38 H, Est GFR (MDRD) Af Amer 49 L, Est GFR (MDRD) Non-Af 40 L, BUN/Creatinine Ratio 15.9, Glucose 144 H, Calcium 9.3 Rhythm: EKG: ECHO: Stress Test: Cardiac Cath: PCI: CT Surgery: Holter monitor: EPS: PPM: CXR: Chest CT Scan: Radiography Diagnostic Testing: Radiology Impression Chest X-Ray 03/09/23 19:35 IMPRESSION: No acute interval change. Electronically Signed: Zeny Rowell MD at 20:15 EST , 03/09/232128 <Electronically signed by Radha Hammonds MD> Cosigner Signature (if applicable): CC: Dr. Radha Hammonds MD; Dr. Akbar Farias MD~ Signed [facility] Work Phone: 1(704) 149-141201-03-2024 Discharge summary Author Leoncio Jorge [facility] March 09, 2023 8:25pm Note Date/Time March 09, 2023 7: 46pm [facility] Medical Records Department [address] [place] [id number] Emergency Department Summary 03/09/23 MR#: [id number] Acct: [id number] Name: ELOISA TSANG SUE Rep #:[id number] : 1950 72 From: Leoncio Jorge MD PCP: Dr. Akbar Farias MD Status: ADM IN Location: ICU CVICU20 2-1 HPI History of Present Illness Chief Complaint: Chest Pain Detail of Chief Complaint: Heartburn/pressure Informant: patient Onset/Context/Timing Onset: Today ( since 729 ) Activity at onset: sudden Timing: Continuous Quality: Positive for Burning and Pressure Location: Substernal Current Severity: Mild Maximum Severity: Severe Worsened By: Nothing Relieved By: Nothing Associated Symptoms: Positive for Nausea and Dyspnea Narrative Narrative: Patient is a 72-year-old woman status post mastectomy, right, due to ductal carcinoma with history of hypertension, type 2 diabetes, hypothyroidism who presents because of elevated troponin of 938. She was seen earlier today by Dr.Paul Gooden. There was concern she had a flutter on the monitor. I was handed her EKG from triage. Patient has an acute ST elevation HI. STEMI was called. Spoke with Dr. Romero who requested EKG to be sent to him. Prior Similar Symptoms: No Recent Illness/Hospitalization: No CVD Risk Factors: Positive for Hypertension, Diabetes and Hypercholesterolemia PE Risk Factors: Negative for Recent Travel/Surgery, Recent Immobilization, Prior DVT or PE, Cancer (Remote history of cancer.) or OCP + Smoking + >/=35 TAD Risk Factors: Positive for Hypertension and Family History; Negative for Marfan's Syndrome [facility] Medical History (Updated 03/09/23 @ 19:[address] Leoncio Jorge MD) Benign breast cyst in female Breast cancer Breast lump in female Depression Ductal carcinoma of breast History of breast cancer History of right breast cancer Hyperlipidemia Hypertension Hypothyroidism Skin cancer Sleep-disordered breathing Thyroid disease Trimalleolar fracture of right ankle Type 2 diabetes mellitus Home Medications atorvastatin 40 mg tablet 40 mg PO QHS 06/02/16 [History Last Taken Unknown] levothyroxine 100 mcg tablet 112 mcg PO DAILY 06/02/16 [History Last Taken 05/16/17 07:30 112 MCG] niacin 500 mg tablet,extended release 24 hr 1,000 mg PO QHS 06/02/16 [History Last Taken Unknown] pramipexole 0.5 mg tablet 0.5 mg PO BID 06/02/16 [History Last Taken 05/16/17 07:30 0.5 MG] losartan 50 mg tablet 50 mg PO DAILY 08/03/16 [History Last Taken 05/16/17 07:30 50 MG] omeprazole 20 mg capsule,delayed release 40 mg PO DAILY 08/03/16 [History Last Taken 05/16/17 07:30 40 MG] calcium carbonate 600 mg-vitamin D3 10 mcg (400 unit) chewable tablet 1 ea PO BID 05/12/17 [History Last Taken Unknown] njabhoiwxskx-Kk-gtka-minerals 1 ea PO DAILY 05/12/17 [History Last Taken Unknown] naproxen sodium 220 mg tablet 440 mg (2 x 220 mg) PO BID #60 tabs 05/17/17 [Rx Last Taken 05/12/17] acetaminophen 500 mg tablet 500 mg PO BID PRN PRN Pain Or Fever 08/14/19 [History Last Taken Unknown] amlodipine 5 mg tablet 5 mg PO DAILY 08/14/19 [History Last Taken Unknown] metformin 500 mg tablet 1,000 mg PO BID 02/09/21 [History Last Taken Unknown] Allergy/AdvReac Type Severity Reaction Status Date / Time Penicillins [PCN] Allergy Severe Hives Verified 03/09/23 19:23 bee venom protein (honey bee) Allergy Anaphylaxis Verified 03/09/23 19:23 Family History Mother Heart disease Breast cancer Lung cancer Hyperlipidemia Arthritis Diabetes Hypertension Kidney disease Surgical History H/O mastectomy History of ankle surgery History of Mohs micrographic surgery for skin cancer History of reconstruction of right breast Hx of colonoscopy Hx of right mastectomy Hx of tonsillectomy Status post open reduction with internal fixation (ORIF) of fracture of ankle Social History Smoking Status: Never smoker second hand exposure: No alcohol intake: never substance use type: does not use caffeine: Yes what type of physical activity do you participate in: none frequency: does not exercise ROS ROS ED Constitutional Constitutional ED: Denies chills, fever(s), subjective, sweats or weight loss Eyes Eyes: Reports none; Denies blurry vision or change in vision ENT ENT ED: Denies ear pain or rhinorrhea Cardiovascular Cardiovascular: Reports as per HPI; Denies orthopnea or paroxysmal nocturnal dyspnea Respiratory/Chest Respiratory/Chest: Reports dyspnea and dyspnea on exertion; Denies cough, orthopnea, paroxysmal nocturnal dyspnea or sputum Gastrointestinal Gastrointestinal: Denies abdominal pain, melena, nausea or vomiting Genitourinary Genitourinary ED: Denies dysuria, hematuria or urinary frequency Musculoskeletal Musculoskeletal: Denies arthralgias or myalgias Integumentary Denies rash Neurologic Neurologic: Denies headache(s), paresthesias or weakness Endocrine Endocrinology: Denies cold intolerance or heat intolerance Hematologic/Lymphatic Hematologic/Lymphatic: Denies easy bleeding or easy bruising EXAM Physical Exam Const Vital Signs: 03/09/23 19:21 03/09/23 19:24 03/09/23 19:47 Temperature 97.9 F Temperature Source Temporal Pulse Rate 109 H 110 H Respiratory Rate 18 17 Blood Pressure 174/84 H 184/95 H Blood Pressure Mean 114 124 Pulse Ox 99 100 99 Oxygen Delivery Method Room Air Nasal Cannula Oxygen Flow Rate (L/min) 2 03/09/23 19:58 03/09/23 20:01 Temperature Temperature Source Pulse Rate Respiratory Rate Blood Pressure 150/93 H 141/86 H Blood Pressure Mean 112 Pulse Ox Oxygen Delivery Method Oxygen Flow Rate (L/min) Positive well nourished, well developed and obese General Appearance ED: well developed and NAD; Negative for pallor Nutritional Appearance: obese HEENT Reports TM's clear and moist mucous membranes normocephalic and atraumatic Tympanic Membrane ED: Yes TM's clear Eyes PERRL and EOMs intact bilaterally General Eye ED: Negative for pale conjunctiva or scleral icterus Neck no lymphadenopathy, supple and no JVD Chest Wall inspection of chest normal Chest Narrative: Status postmastectomy on the right. Resp normal respiratory effort and clear to auscultation bilaterally Cardio regular rhythm, S1 normal heart sound, S2 normal heart sound and no murmurs Rate: tachycardic Peripheral Pulses: pulses 2+ throughout GI normal to inspection, nondistended, normoactive bowel sounds, soft to palpation, non-tender, non-distended and no masses; Negative for hepatosplenomegaly Back/Spine no CVA tenderness Extremity normal to inspection General Extremety ED: Negative for edema General Extremity: Negative for edema Neuro oriented x3, CN's II-XII intact bilaterally, no sensory deficits noted and gait normal Sensorium / Orientation: awake and alert Motor Exam: strength 5/5 throughout Psych mental status grossly normal Skin no rashes or lesions noted and no wounds General Skin Exam: Negative for pallor Heart Score History: Highly Suspicious ECG: Nonspecific Repolarization Age: >/= 65 years Risk Factors: >/= 3 Risk Factors or History of CAD Troponin: >/=3 x Normal Limit Score: 9 MDM MDM MDM Narrative Medical decision making narrative: STEMI was called based on EKG. There are no prior to compare. Outpatient troponin was 938. History & Record Review Discussion w/independent historian: Patient, Significant other and Other (Dr. Arturo Orozco called into informed that her troponin was 938.) Lab Data Attestation: I reviewed the patient's lab results. Lab results narrative: Troponin was greater than 9000. Labs: Laboratory Results - last 24 hr 03/09/23 19:35 WBC 13.6 H RBC 4.13 L Hgb 12.3 Hct 37.2 MCV 90.1 MCH 29.8 MCHC 33.1 RDW Std Deviation 44.0 H RDW Coeff of Nilda 13.4 Plt Count 362 MPV 9.7 Immature Gran % (Auto) 0.400 Neut % (Auto) 77.1 H Lymph % (Auto) 14.5 L Creek % (Auto) 7.4 Eos % (Auto) 0.2 Baso % (Auto) 0.4 Absolute Neuts (auto) 10.5 H Absolute Lymphs (auto) 1.97 Nucleated RBC % 0 Radiography Chest X-Ray - ED: 1 View and Read by ED Physician (Perihilum is remarked for granulomatous disease. There is mild chronic changes noted. There is no effusion or pneumothorax. Cardiac silhouette size normal. Osseous structures unremarkable. This was apparently reviewed interpreted by me at 1953.) Diagnostic Testing: Clinical Impression(s) from Imaging Studies Chest X-Ray 03/09/23 19:35 IMPRESSION: No acute interval change. Electronically Signed: Zeny Rowell MD at 20:15 EST Reading Location ID and State: [address] [place] [address] , Service support , EKG Initial EKG: Attestation: I personally reviewed and interpreted this EKG as follows: Interpretation: Sinus Tachycardia (Sinus tachycardia rate of 106. Patient has a left bundle branch block and ST elevation that is concerning for an inferior ST elevation HI. Left bundle may be new which is also concerning. There are no comparisons.) Management Discussion w/another healthcare provider: Cro (Spoke with employee benefits attorney. Patient was treated with aspirin, heparin and Brilinta. It Portfolio Manager has been called in.) Critical Care Time Critical Care Time: Yes Critical care time (excluding procedures): 30-74 minutes (31), Including time spent: (History, physical, documentation, treatment for ST elevation HI inferior leads, discussion with hospitalist, discussion with PCP, discussion with routeman), Discussing w/Patient &/or Family/Bone Char Operator, Discussing w/Consultants and Arranging Admission or Transfer Discharge Plan Dx/Rx/DC Orders Clinical Impression: ST elevation (STEMI) myocardial infarction, Hypertension, Type 2 diabetes mellitus, Hypothyroidism Disposition Disposition: [facility] Discharge Date/Time: 03/09/23 20:24 What to do if you have Problems For any increased pain, shortness of breath, bleeding, nausea or vomiting, chest pain, or any unexpected problems, contact your Primary Care Provider. Call [facility] ([phone]) or report to the closest Emergency Room. Call 911 if necessary. 03/09/232024 <Electronically signed by Leoncio Jorge MD> Cosigner Signature (if applicable): CC: Dr. Akbar Farias MD ~ Signed [facility] Work Phone: 1(297) 946-176401-03-2023 Evaluation note* Diagnosis Onset Date Resolution Status Anemia acute Type 2 diabetes mellitus acu te Hypertension chronic Leukocytosis resolved Ischemic cardiomyopathy acut e Stented coronary artery March 09, 2022 acute Type 2 diabetes mellitus acu te Hyperlipidemia chronic Hypertension chronic [facility] Work Phone: 1(242) 483-215801-03-2023 Evaluation note* Diagnosis Onset Date Resolution Status Hyperlipidemia chronic Hypertension chronic Ischemic cardiomyopathy 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 ximena Stented coronary artery March 09, 2022 chronic Type 2 diabetes mellitus chr onic Coronary artery disease 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 ximena Hyperlipidemia chronic Hypertension chronic Ischemic cardiomyopathy 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 ximena Stented coronary artery March 09, 2022 chronic Type 2 diabetes mellitus chr onic [facility] Work Phone: 1(909) 517-459811-01-2022 NotePap Smear Specimen AdequacyNovember 2021 8:32amComment.Satisfactory for evaluation. Endocervical component may not bedistinguished in cases of atrophy.[employer] INTERFACED A#[id number] Street Hospital Work Phone: Comment on above:Satisfactory for evaluation. Endocervical component may not bedistinguished in cases of atrophy.01-05-2022 NotePap Smear Specimen AdequacyNovember 2021 8:32amComment.Satisfactory for evaluation. Endocervical component may not bedistinguished in cases of atrophy. [facility] INTERFACED A#[id number] [facility] Work Phone: Comment on above:Satisfactory for evaluation. Endocervical component may not bedistinguished in cases of atrophy.01-05-2022 NotePap Smear Specimen AdequacyNovember 2021 8:32amComment.Satisfactory for evaluation. Endocervical component may not bedistinguished in cases of atrophy. [facility] INTERFACED A#[id number] Street HospitalComment on above: Satisfactory for evaluation. Endocervical component may not bedistinguished in cases of atrophy.Consult note Author Delfino Trevizo [facility] March 11, 2023 1:44pm Note Date/Time March 11, 2023 1: 43pm [facility] Medical Records Department [address] [place] [address] Counseling Note - Pharmacy 03/11/23 1340 MR#: [id number] Acct: [id number] Name: ELOISA TSANG Rep #:[id number] 2 : 1950 72 From: Delfino Trevizo PCP: Dr. Akbar Farias MD Status: ADM IN Y Location: [place] [address] Pharmacy [facility] Service has performed discharge medication reconciliation and counseling for this patient. The patient's discharge medication list was reviewed for discrepancies and discrepancies were resolved. The patient was counseled on the following discharge medications and changes in medications for homegoing were reviewed. The Reason for Use, instructions for use, and potential side effects were reviewed for all new medications. The patient's questions regarding all of their medications were answered. 1. aspirin 81 mg PO daily 2. clopidogrel 75 mg PO daily 3. atorvastatin 80 mg PO daily 4. carvedilol 12.5 mg PO BID 5. hydrochlorothiazide 25 mg PO daily The patient was able to verbally demonstrate an understanding of their dischargemedications. Medications at Discharge Home Medications pramipexole 0.5 mg tablet 0.5 mg PO BID restless legs 06/02/16 losartan 50 mg tablet 100 mg PO DAILY blood pressure 08/03/16 omeprazole 20 mg capsule,delayed release 40 mg PO DAILY 08/03/16 dmomkggqbjor-Qf-cuzi-minerals 1 ea PO DAILY vitamin 05/12/17 acetaminophen 500 mg tablet 500 mg PO BID PRN PRN Pain Or Fever 08/14/19 amlodipine 5 mg tablet 5 mg PO DAILY 08/14/19 metformin 500 mg tablet 1,000 mg PO BID 02/09/21 calcium carbonate 500 mg calcium (1,250 mg) chewable tablet (Calcium 500) 500 mgPO DAILY calcium 03/10/23 citalopram 20 mg tablet 20 mg PO QHS depression 03/10/23 levothyroxine 125 mcg tablet 125 mcg PO MOTUWETHFRSA thyroid 03/10/23 aspirin 81 mg tablet,delayed release 81 mg PO DAILY@0800 #0 tabs 03/11/23 atorvastatin 80 mg tablet 80 mg PO QHS #30 tabs 03/11/23 carvedilol 12.5 mg tablet 12.5 mg PO BID #60 tabs 03/11/23 clopidogrel 75 mg tablet 75 mg PO DAILY #30 tabs 03/11/23 hydrochlorothiazide 25 mg tablet 25 mg PO DAILY #30 tabs 03/11/23 03/11/23 1344 <Electronically signed by Delfino hair> Date _ Delfino Lewisignservando Signature (if applicable): Date CC: ~ Signed [facility] Work Phone: Discharge summary Author Mildred Pedersen [facility] March 11, 2023 12:46pm Note Date/Time March 11, 2023 12 :24pm [facility] Medical Records Department [address] [place], [place] [address] [address] Discharge Summary 03/11/23 1223 MR#: [id number] Acct: [id number] Name: ELOISA TSANG SUE Rep #:[id number] 1 : 1950 72 From: Mildred Pedersen DO PCP: Dr. Akbar Farias MD Status: ADM IN Location: [place] [address] Providers Date of Admission: 03/09/23 Date of Discharge: 03/11/23 Primary Care Physician: Dr. Akbar Farias MD Reason For Visit: STEMI Diagnosis Discharge Diagnosis (1) ST elevation (STEMI) myocardial infarction: Status: Acute Code(s): I21.3 - ST elevation (STEMI) myocardial infarction of unspecified site Qualifiers: Involved coronary artery: unspecified coronary artery Qualified Code(s): I21.3 - ST elevation (STEMI) myocardial infarction of unspecified site (2) Coronary artery disease: Status: Acute Code(s): I25.10 - Atherosclerotic heart disease of [place] coronary artery without angina pectoris (3) Hypertension: Status: Chronic Code(s): I10 - Essential (primary) hypertension (4) Type 2 diabetes mellitus: Status: Chronic Code(s): E11.9 - Type 2 diabetes mellitus without complications (5) Dyslipidemia: Status: Acute Code(s): E78.5 - Hyperlipidemia, unspecified Medications at Discharge Home Medications pramipexole 0.5 mg tablet 0.5 mg PO BID restless legs 06/02/16 losartan 50 mg tablet 100 mg PO DAILY blood pressure 08/03/16 omeprazole 20 mg capsule,delayed release 40 mg PO DAILY 08/03/16 dxwbzivlilca-Sq-sumt-minerals 1 ea PO DAILY vitamin 05/12/17 acetaminophen 500 mg tablet 500 mg PO BID PRN PRN Pain Or Fever 08/14/19 amlodipine 5 mg tablet 5 mg PO DAILY 08/14/19 metformin 500 mg tablet 1,000 mg PO BID 02/09/21 apixaban 5 mg (74 tabs) tablets in a dose pack (RingDNA DVT-PE Treat 30D Start) 10 mg PO Q12H blood thinner 03/10/23 calcium carbonate 500 mg calcium (1,250 mg) chewable tablet (Calcium 500) 500 mgPO DAILY calcium 03/10/23 citalopram 20 mg tablet 20 mg PO QHS depression 03/10/23 levothyroxine 125 mcg tablet 125 mcg PO MOTUWETHFRSA thyroid 03/10/23 aspirin 81 mg tablet,delayed release 81 mg PO DAILY@0800 #0 tabs 03/11/23 atorvastatin 80 mg tablet 80 mg PO QHS #30 tabs 03/11/23 carvedilol 12.5 mg tablet 12.5 mg PO BID #60 tabs 03/11/23 clopidogrel 75 mg tablet 75 mg PO DAILY #30 tabs 03/11/23 hydrochlorothiazide 25 mg tablet 25 mg PO DAILY #30 tabs 03/11/23 Hospital Course Operations None Procedures 2-D Echocardiogram, Cardiac catheterization, EKG and - (Chest x-ray) Summary of Care Provided Minutes Spent on Discharge: 40 Hospital Course: Mrs. Tsang is a 72-year-old white female who presented to the emergency department on 03/09/2023 with chest pain. She reported her symptoms began abruptly at about 7:30 AM and the pain was continuous, burning, and substernal. Her symptoms had been waxing and waning with a heartburn/chest pressure sensation that nothing seemed to improve or worsen. She was seen by Dr. Muller in the day and was concern for possible atrial flutter and HI so she wassent to the emergency department. In the emergency department she was noted to have an elevated initial troponin at 938 and an EKG that revealed acute ST segment elevation consistent with an NSTEMI. STEMI team was called and she was taken emergently to the It Portfolio [facility] by Dr. Hammonds and she was noted to have 100% occlusion of the RCA. JHON via PCI to the RCA was performed and she was then transferred to the ICU for ongoing care after stent placement. She was monitored in the ICU overnight with no significant abnormalities or issues and then transferred to the telemetry floor. She remained stable while she was there with no recurrent chest pain or significant arrhythmias. We checked a hemoglobin A1c and this was found to be 6.7 and recommend she continue her home regimen for diabetes management. Her lipid panel demonstrated a total cholesterol of 170/LDL of 82/HDL 54 and a triglyceride level of 170. Since her LDL was greater than 70 we did increase her atorvastatin dose from 40 to 80 mg at discharge and recommended follow-up cholesterol panel be performed in 3 months. She was started on aspirin 81 mg daily, Plavix 75 mg daily, Coreg 12.5 mg p.o. twice daily, hydrochlorothiazide 25 mg daily, and maintained on her losartan. We verified that she was recently started on Eliquis and metoprolol for concern of atrial flutter. She had no atrial arrhythmias noted while she was hospitalized. I will discharge her with a 30-day event monitor and hold offon taking the Eliquis. Her event monitor can be reviewed with cardiology and ifliban does have any signs of atrial fibrillation or flutter this should be able topick it up and she can be treated appropriately at that time. She does not needthe metoprolol as she was placed on Coreg during her hospitalization. An echocardiogram was performed and did show a mildly depressed EF at 45% with severe inferior, inferior septal and posterior basal hypokinesis with mild to moderate mitral valve insufficiency. As noted above she was placed on appropriate goal-directed therapy and will need to follow-up echocardiogram in the future to reassess her EF, hopefully the drop in EF is related to some stunned myocardium from her infarct and not permanent damage. Patient was able to be discharged home in stable condition on 03/11/2023. We have a follow-up appointment to be seen in cardiology office at the end of March and have askedher to follow-up with her primary care physician within the next 2 weeks. I would recommend that she be referred for sleep study as her body habitus increases her risk for obstructive sleep apnea which could in turn increase stress on her heart. Discharge diagnoses: STEMI Ischemic cardiomyopathy-EF 45%--> hopefully related to stunned myocardium Leukocytosis-resolved Anemia-mild Hypertension Hyperlipidemia DM-2-A1c 6.7 Hypothyroidism Restless leg syndrome GERD CKD stage IIIb Osteoarthritis History of ductal carcinoma of the right breast History of skin cancer Depression Obesity Physical Exam Const alert, oriented x3, no apparent distress, average body habitus, no limitations and well nourished Constitutional Narrative: Obese, older, white female, sitting up in bed watching television, at bedside, appears comfortable and nontoxic General Appearance: cooperative, comfortable, well kempt and well developed Orientation / Consciousness: awake, oriented to person, oriented to place and oriented to time Exam Limitations: no limitations Nutritional Appearance: obese HEENT normocephalic, head/scalp atraumatic, hearing grossly normal bilaterally and moist oral mucous membranes HEENT Narrative: Mallampati 3, no thrush Eyes PERRL, EOMs intact bilaterally and conjunctivae normal Eyes Narrative: No scleral icterus Neck no lymphadenopathy and supple Neck Narrative: Neck is short and thick, trachea is midline, no thyroid enlargement noted Resp normal respiratory effort, no retractions, no use of accessory muscles and clearto auscultation bilaterally Auscultation: Negative for rales, rhonchi or wheezes Cardio regular rate, regular rhythm, S1 normal heart sound, S2 normal heart sound, no murmurs, no rub, no gallops and no clicks GI normal to inspection, nondistended, normoactive bowel sounds, soft to palpation and non-tender Extremity no clubbing, cyanosis or edema Extremity Narrative: Pedal pulses are 2+ Skin no rashes or lesions noted, no wounds, skin turgor normal and no jaundice Neuro oriented x3, CN's II-XII intact bilaterally, moves all extremities and no focal motor deficits Sensorium / Orientation: awake, alert, oriented to person, oriented to place andoriented to time Speech: speech normal Motor Exam: strength 5/5 throughout Psych affect normal Psych Narrative: Eye contact is good, patient interacts appropriately Weight / BMI Weight Weight: 81.2 kg Body Mass Index (BMI) 29.7 ABG / Lab / Microbiology Data 03/11/23 05:55 03/11/23 05:55 Laboratory: Laboratory Results - last 24 hr 03/11/23 05:55: WBC 9.0, RBC 3.63 L, Hgb 10.6 L, Hct 33.1 L, MCV 91.2, MCH 29.2,MCHC 32.0, RDW Std Deviation 44.9 H, RDW Coeff of Nilda 13.4, Plt Count 271, MPV 9.9, Immature Gran % (Auto) 0.300, Neut % (Auto) 64.1, Lymph % (Auto) 22.5, Creek% (Auto) 10.1 H, Eos % (Auto) 2.3, Baso % (Auto) 0.7, Absolute Neuts (auto) 5.8,Absolute Lymphs (auto) 2.03, Nucleated RBC % 0, Sodium 139, Potassium 3.6, Chloride 106, Carbon Dioxide 24.0, Anion Gap 9, BUN 23 H, Creatinine 1.05 H, Estim Creat Clear Calc 44.86, Est GFR (MDRD) Af Amer 67, Est GFR (MDRD) Non-Af 55 L, BUN/Creatinine Ratio 21.9 H, Glucose 149 H, Calcium 8.6, Phosphorus 4.9, Magnesium 1.8, Triglycerides 170, Cholesterol 170, LDL Cholesterol 82, VLDL Cholesterol 34, HDL Cholesterol 54 D/C Instructions Discharge Diet: Low fat / Low cholesterol and 1800 Calorie Control Diet Discharge Activity: Return to Normal Activity Meaningful Use Info Meaningful Use Diagnoses (Choose all that apply): AMI AMI/Post PCI/Angioplasty Aspirin given w/in 24hrs of arrival?: Yes ASA at discharge?: Yes Antiplatelet Therapy at Discharge:: Yes Statins at discharge?: Yes Vimal/ARB at discharge?: Yes Beta Richie at discharge?: Yes Done w/ Acute HI measure.: Yes Documented LVEF (%): 45 Discharge Plan Admission Admit Date/Time: 03/09/23 21:20 Primary Reason for Your Visit: Chest Pain Attending Provider: Mildred Pedersen Primary Care Provider: Akbar Farias Consulting Providers: aRdha Hammonds; Jon Whiting Instructions Patient Instructions: First Aid: Heart Attacks, Exercising After a Heart Attack, Heart Attack Questions, Heart Attack: Leaving the Hospital, Heart Attack: Back at Home, Heart Attack Resuming Sex Discharge Orders/Prescriptions Prescriptions: New aspirin 81 mg Tablet,Delayed Release (Dr/Ec) 81 mg PO DAILY@0800 Qty: 0 0RF atorvastatin 80 mg Tablet 80 mg PO QHS Qty: 30 1RF carvedilol 12.5 mg Tablet 12.5 mg PO BID Qty: 60 1RF clopidogrel 75 mg Tablet 75 mg PO DAILY Qty: 30 11RF hydrochlorothiazide 25 mg Tablet 25 mg PO DAILY Qty: 30 1RF Continued pramipexole 0.5 MG tablet 0.5 mg PO BID omeprazole 20 MG capsule 40 mg PO DAILY losartan 50 MG tablet 100 mg PO DAILY amlodipine 5 MG tablet 5 mg PO DAILY acetaminophen 500 MG tablet 500 mg PO BID PRN PRN (Reason: Pain Or Fever) metformin 500 mg tablet 1,000 mg PO BID sedjxsjsxmfc-Pn-tmea-minerals 1 EACH tablet 1 ea PO DAILY citalopram 20 mg tablet 20 mg PO QHS levothyroxine 125 mcg tablet 125 mcg PO MOTUWETHFRSA Rx Instructions: takes 125mcg m-s and a half a tab on sundays calcium carbonate [Calcium 500] 500 mg calcium (1,250 mg) tablet,chewable 500 mg PO DAILY Discontinued atorvastatin 40 MG tablet 40 mg PO QHS metoprolol tartrate 50 mg tablet 50 mg PO DAILY Rx Instructions: pt just got filled. not yet started No Action Eliquis DVT-PE Treat 30D Start 5 mg (74 tabs) tablets,dose pack 10 mg PO Q12H Rx Instructions: pt just had filled. not started yet. to take 10mg bid for 1 week then 5mg bid Other Ambulatory Orders: 30 Day Event Recorder Preventi (Urgent) Timeframe: 1 Day Facility: [facility] - Location: Cardiovascular Services Ordered By: Dr. Mildred Pedersen Referrals / Follow Up: Akbar Farias MD [Primary Care Provider] - Within 2 Weeks (Please call the office to schedule an appt. ) Josh Greene TICKET ATTENDANT, TICKET ATTENDANT-C [Med Staff - Adv Practice Prof] - 04/05/23 10:00 am Disposition Disposition (needs filled in before D/C Order can be placed): Home, Self Care Charges/Coding Visit Charges Inpatient E&M: 86672 Disch Hosp >30min 03/11/23 1246 <Electronically signed by Mildred Pedersen DO> Cosigner Signature (if applicable): CC: Dr. Akbar Farias MD; Dr. Mildred Pedersen DO~ Signed [facility] Work Phone: evaluation noteNo assessment information available [facility] Work Phone: evaluation note* Diagnosis Onset Date Resolution Status History of right breast cancer chronic Breast lump in female acute History of breast cancer acu te Benign breast cyst in female chronic Ductal carcinoma of breast c hronic History of right breast cancer chronic [facility] Work Phone: evaluation note* Diagnosis Onset Date Resolution Status History of right breast cancer chronic Breast lump in female acute History of breast cancer acu te Benign breast cyst in female chronic Ductal carcinoma of breast c hronic History of right breast cancer chronic ST elevation (STEMI) myocardial infarction acute Hypertension chronic Hypothyroidism chronic Type 2 diabetes mellitus [facility] Work Phone: evaluation note* Diagnosis Onset Date Resolution Status History of right breast cancer chronic Breast lump in female acute History of breast cancer acu te Benign breast cyst in female chronic Ductal carcinoma of breast c hronic History of right breast cancer chronic Anemia acute Coronary artery disease acut e Dyslipidemia acute Leukocytosis acute ST elevation (STEMI) myocardial infarction acute Hypertension chronic Hypothyroidism chronic Type 2 diabetes mellitus [facility] Work Phone: evaluation note* Diagnosis Onset Date Resolution Status History of right breast cancer chronic Breast lump in female acute History of breast cancer acu te Benign breast cyst in female chronic Ductal carcinoma of breast c hronic History of right breast cancer chronic Anemia acute Leukocytosis resolved [facility] Work Phone: evaluation note* Diagnosis Onset Date Resolution Status History of right breast cancer chronic Breast lump in female acute History of breast cancer acu te Benign breast cyst in female chronic Ductal carcinoma of breast c hronic History of right breast cancer chronic Anemia acute Type 2 diabetes mellitus acu te Hypertension chronic Leukocytosis resolved Ischemic cardiomyopathy acut e Stented coronary artery March 09, 2022 acute Type 2 diabetes mellitus acu te Hyperlipidemia chronic Hypertension [facility] Work Phone: Evaluation note* Diagnosis Onset Date Resolution Status Anemia acute Coronary artery disease 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 ximena Hypertension chronic Type 2 diabetes mellitus chr onic Leukocytosis resolved Hyperlipidemia chronic Hypertension chronic Ischemic cardiomyopathy 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 ximena Stented coronary artery March 09, 2022 chronic Type 2 diabetes mellitus chr onic Coronary artery disease 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 ximena Hyperlipidemia chronic Hypertension chronic Ischemic cardiomyopathy 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 ximena Stented coronary artery March 09, 2022 chronic Type 2 diabetes mellitus chr onic [facility] Work Phone: Reason for referral (narrative)No reason for referral [facility] Family History No Family History Records Found Relationship Condition Age at Onset Recorded Date/T vero mother Cardiac disease Unknown Malignant neoplasm of breast Unknown Malignant neoplasm of lung Unknown Hyperlipidemia Unknown Arthritis Unknown Diabetes mellitus Unknown Hypertension Unknown Kidney disorder Unknown Relationship Condition Age at Onset Recorded Date/T vero mother Cardiac disease Unknown Malignant neoplasm of breast Unknown Malignant neoplasm of lung Unknown Hyperlipidemia Unknown Arthritis Unknown Diabetes mellitus Unknown Hypertension Unknown Kidney disorder Unknown Coronary artery disease Unknown father Malignant neoplasm Unknown sister Diabetes mellitus Unknown Advance Directives No Advanced Directives Records Found Advance Directive Response Recorded Date/ Time Living Will No January 01 10:22am Power of Ceramic Mold Designer No January 01, 2019 10:22am Advance Directive Response Recorded Date/ Time Living Will No January 01 9:22am Power of Ceramic Mold Designer No January 01, 2019 9:22am Advance Directive Response Recorded Date/ Time Living Will No March 09 7:45pm Power of Ceramic Mold Designer No March 09 7:45pm Advance Directive Response Recorded Date/ Time Living Will No March 09 9:33pm Power of Ceramic Mold Designer No March 09 9:33pm Advance Directive Response Recorded Date/ Time Advance Directives on File No 2023 9:07am Living Will No March 22 9:30am Power of Ceramic Mold Designer No March 22, 2023 9:07am Advance Directive Response Recorded Date/ Time Advance Directives on File No 2023 10:07am Living Will No March 22 10:30am Power of Ceramic Mold Designer No March 22, 2023 10:07am Chief Complaint and Reason for Visit Chief Complaint SCREENING 1YR LABS REVIEW MAMMO/CXR ONC/HEM CXR EORDER Reason for Visit History of right boom ast cancer Breast lump in female History of breast cancer Benign breast cyst in female Ductal carcinoma of breast History of right breast cancer Chief Complaint SCREENING 1YR LABS REVIEW MAMMO ONC/HEM ACUTE INFERIOR STEMI Reason for Visit History of right boom ast cancer Breast lump in female History of breast cancer Benign breast cyst in female Ductal carcinoma of breast History of right breast cancer ST elevation (STEMI) myocardial infarction Hypertension Hypothyroidism Type 2 diabetes mellitus Chief Complaint SCREENING 1YR LABS REVIEW MAMMO ONC/HEM STEMI ACUTE INFERIOR STEMI STEMI STEMI STEMI STEMI Reason for Visit History of right boom ast cancer Breast lump in female History of breast cancer Benign breast cyst in female Ductal carcinoma of breast History of right breast cancer Anemia Coronary artery disease Dyslipidemia Leukocytosis ST elevation (STEMI) myocardial infarction Hypertension Hypothyroidism Type 2 diabetes mellitus Chief Complaint SCREENING 1YR LABS REVIEW MAMMO ONC/HEM STEMI ACUTE INFERIOR STEMI STEMI STEMI STEMI STEMI A-FIB FLUTTER PCI with stent Reason for Visit History of right boom ast cancer Breast lump in female History of breast cancer Benign breast cyst in female Ductal carcinoma of breast History of right breast cancer Anemia Leukocytosis Chief Complaint SCREENING 1YR LABS REVIEW MAMMO ONC/HEM STEMI ACUTE INFERIOR STEMI STEMI STEMI STEMI STEMI A-FIB FLUTTER PCI with stent S/P [facility] 03/10 STEMI PCI with stent, STEMI Reason for Visit History of right boom ast cancer Breast lump in female History of breast cancer Benign breast cyst in female Ductal carcinoma of breast History of right breast cancer Anemia Type 2 diabetes mellitus Hypertension Leukocytosis Ischemic cardiomyopathy Stented coronary artery Type 2 diabetes mellitus Hyperlipidemia Hypertension Chief Complaint SCREENING 1YR LABS REVIEW MAMMO ONC/HEM STEMI ACUTE INFERIOR STEMI STEMI STEMI STEMI STEMI A-FIB FLUTTER 30 DAY MONITOR PCI with stent S/P [facility] 03/10 STEMI PCI with stent, STEMI PCI with stent, STEMI Reason for Visit History of right boom ast cancer Breast lump in female History of breast cancer Benign breast cyst in female Ductal carcinoma of breast History of right breast cancer Anemia Type 2 diabetes mellitus Hypertension Leukocytosis Ischemic cardiomyopathy Stented coronary artery Type 2 diabetes mellitus Hyperlipidemia Hypertension Chief Complaint STEMI ACUTE INFERIOR STEMI STEMI STEMI STEMI STEMI A-FIB FLUTTER 30 DAY MONITOR PCI with stent S/[facility] 03/10 STEMI PCI with stent, STEMI PCI with stent, STEMI PCI with stent, STEMI Reason for Visit Anemia Type 2 diabetes mellitus Hypertension Leukocytosis Ischemic cardiomyopathy Stented coronary artery Type 2 diabetes mellitus Hyperlipidemia Hypertension Chief Complaint STEMI ACUTE INFERIOR STEMI STEMI STEMI STEMI STEMI A-FIB FLUTTER 30 DAY MONITOR PCI with stent S/[facility] 03/10 STEMI PCI with stent, STEMI PCI with stent, STEMI PCI with stent, STEMI PCI with stent, STEMI 3 M FU CHF Reason for Visit Anemia Coronary artery disease Hypertension Type 2 diabetes mellitus Leukocytosis Hyperlipidemia Hypertension Ischemic cardiomyopathy Stented coronary artery Type 2 diabetes mellitus Coronary artery disease Hyperlipidemia Hypertension Ischemic cardiomyopathy Stented coronary artery Type 2 diabetes mellitus Chief Complaint A-FIB FLUTTER 30 DAY MONITOR PCI with stent S/[facility] 03/10 STEMI PCI with stent, STEMI PCI with stent, STEMI PCI with stent, STEMI PCI with stent, STEMI 3 M FU CHF Reason for Visit Hyperlipidemia Hypertension Ischemic cardiomyopathy Stented coronary artery Type 2 diabetes mellitus Coronary artery disease Hyperlipidemia Hypertension Ischemic cardiomyopathy Stented coronary artery Type 2 diabetes mellitus Chief Complaint Admit Date 6 M FU June 05, 2024 2:02 pm E ORDERS June 11, 2024 10:0 5am Reason for Visit Admit Date Coronary artery disease June 05, 2024 2:02pm Hyperlipidemia June 05, 2024 2:02 pm Hypertension June 05, 2024 2:02 pm Mitral regurgitation June 05, 2024 2:0 2pm Stented coronary artery June 05, 2024 2:02pm Type 2 diabetes mellitus June 05, 2024 2:02pm Ischemic cardiomyopathy June 05, 2024 2:02pm Chief Complaint Admit Date 6 M FU June 05, 2024 2:02 pm E ORDERS June 11, 2024 10:0 5am CAD/ASHD June 29, 2024 12: 36pm Chief Complaint Admit Date 6 M FU June 05, 2024 2:02 pm E ORDERS June 11, 2024 10:0 5am CAD/ASHD June 29, 2024 12: 36pm PREOP August 16, 2024 12:3 3pm PRE-OP August 20, 2024 12:5 3pm Summary Purpose Additional Source Comments Goals (unrecognized section and content) Goals may be documented in a n alternate sectionGoals may be documented in an alternate sectionGoals may be documented in an alternate sectionGoals may be documented in an alternate sectionGoals may be documented in an alternate sectionGoals may be documented in an alternate sectionGoals may be documented in an alternate sectionGoals may be documented in an alternate sectionGoals may be documented in an alternate sectionGoals may be documented in an alternate section Care Teams (unrecognized sec tion and content) Team Status: Active Member Role Status Dates Dr. Akbar Farias MD Family Provider Active Dr. Akbar Farias MD Primary Care Provider Activ e Team Status: Inactive Member Role Status Dates Dr. Akbar Farias MD Primary Care Provider, Refe rring Provider Active Dr. Floyd Ahmadi MD Attending Provider Active Team Status: Active Member Role Status Dates Noy Jean Baptiste TICKET ATTENDANT, TICKET ATTENDANT-C Attending Provider, Referring Provider Active Dr. Akbar Farias MD Primary Care Provider, Fami ly Provider Active Dr. Floyd Ahmadi MD Other Provider Active Team Status: Inactive Member Role Status Dates Dr. Akbar Farias MD Primary Care Provider Activ e Dr. Floyd Ahmadi MD Attending Provider, Referring Pro vider Active Team Status: Inactive Member Role Status Dates Dr. Akbar Farias MD Primary Care Provider Activ e Dr. Jacy Bates DO Attending Provider Active Team Status: Inactive Member Role Status Dates Dr. Akbar Farias MD Primary Care Provider, Attending Provider, Referring Provider Active Team Status: Inactive Member Role Status Dates Dr. Akbar Farias MD Primary Care Provider, Atte nding Provider Active Team Status: Active Member Role Status Dates Dr. Akbar Farias MD Primary Care Provider Activ e Togn Ayala MD Attending Provider Active Team Status: Active Member Role Status Dates Dr. Akbar Farias MD Primary Care Provider Activ e Dr. Leoncio Jorge MD Emergency Provider Active Dr. Radha Hammonds MD Other Provider Active Dr. Jon Whiting DO Admit Provider, Attending Pr ovider Active Team Status: Active Member Role Status Dates Dr. Akbar Farias MD Primary Care Provider Activ e Dr. Leoncio Jorge MD Emergency Provider Active Dr. Radha Hammonds MD Attending Provider, Other Provid er Active Dr. Jon Whiting DO Admit Provider, Other Provid er Active Team Status: Active Member Role Status Dates Dr. Akbar Farias MD Primary Care Provider Activ e Dr. Leoncio Jorge MD Emergency Provider Active Dr. Radha Hammonds MD Attending Provider, Other Provid er Active Dr. Jon Whiting DO Admit Provider, Other Provid er Active Dr. Mildred Pedersen DO Other Provider Active Team Status: Active Member Role Status Dates Dr. Akbar Farias MD Primary Care Provider Activ e Dr. Leoncio Jorge MD Emergency Provider Active Dr. Radha Hammonds MD Other Provider Active Dr. Jon Whiting DO Admit Provider, Other Provid er Active Dr. Mildred Pedersen DO Attending Provider, Other Provide r Active Team Status: Inactive Member Role Status Dates Dr. Akbar Farias MD Primary Care Provider Activ e Dr. Leoncio Jorge MD Emergency Provider Active Dr. aRdha Hammonds MD Other Provider Active Dr. Jon Whiting DO Admit Provider, Other Provid er Active Dr. Mildred Pedersen DO Attending Provider Active Team Status: Inactive Member Role Status Dates Dr. Akbar Farias MD Primary Care Provider Activ e Tong Ayala MD Attending Provider Active Team Status: Active Member Role Status Dates Dr. Akbar Farias MD Primary Care Provider Activ e Dr. Leoncio Jorge MD Emergency Provider Active Dr. Radha Hammonds MD Attending Provider , Referring Provider, Other Provider Active Dr. Jon Whiting DO Admit Provider, Other Provid er Active Team Status: Active Member Role Status Dates Dr. Akbar Farias MD Primary Care Provider Activ e Dr. Leoncio Jorge MD Emergency Provider Active Dr. Radha Hammonds MD Attending Provider , Referring Provider, Other Provider Active Dr. Jon Whiting DO Admit Provider, Other Provid er Active Dr. Mildred Pedersen DO Other Provider Active Team Status: Active Member Role Status Dates Dr. Akbar Farias MD Primary Care Provider Activ e Dr. Mildred Pedersen DO Attending Provider, Referring Pro vider Active Team Status: Inactive Member Role Status Dates Dr. Akbar Farias MD Primary Care Provider Activ e Dr. Radha Hammonds MD Attending Provider, Referring Pr ovider Active Team Status: Inactive Member Role Status Dates Dr. Akbar Farias MD Primary Care Provider, Refe rring Provider Active Josh Greene TICKET ATTENDANT, TICKET ATTENDANT-C Attending Provider Active Team Status: Active Member Role Status Dates Dr. Akbar Farias MD Primary Care Provider Activ e Dr. Telly Cardoso MD Attending Provider Active Dr. Mildred Pedersen DO Referring Provider Active Team Status: Active Member Role Status Dates Dr. Teodoro Farias MD Family Provider Active Dr. Teodoro Farias MD Primary Care Provider Acti ve Team Status: Active Member Role Status Dates Dr. Teodoro Farias MD Primary Care Provider Acti ve Dr. Leoncio Jorge MD Emergency Provider Active Dr. Radha Hammonds MD Attending Provider , Referring Provider, Other Provider Active Dr. Jon Whiting DO Admit Provider, Other Provid er Active Team Status: Active Member Role Status Dates Dr. Teodoro Farias MD Primary Care Provider Acti ve Dr. Leoncio Jorge MD Emergency Provider Active Dr. Radha Hammonds MD Attending Provider , Referring Provider, Other Provider Active Dr. Jon Whiting DO Admit Provider, Other Provid er Active Dr. Mildred Pedersen DO Other Provider Active Team Status: Active Member Role Status Dates Dr. Teodoro Farias MD Primary Care Provider Acti ve Dr. Leonico Jorge MD Emergency Provider Active Dr. Radha Hammonds MD Other Provider Active Dr. Jon Whiting DO Admit Provider, Other Provid er Active Dr. Mildred Pedersen DO Attending Provider, Other Provide r Active Team Status: Inactive Member Role Status Dates Dr. Teodoro Farias MD Primary Care Provider, Ref erring Provider Active Josh Greene TICKET ATTENDANT, TICKET ATTENDANT-C Attending Provider Active Team Status: Active Member Role Status Dates Dr. Teodoro Farias MD Primary Care Provider Acti ve Dr. Telly Cardoso MD Attending Provider Active Dr. Mildred Pedersen DO Referring Provider Active Team Status: Inactive Member Role Status Dates Dr. Teodoro Farias MD Primary Care Provider, Ref erring Provider Active Dr. Radha Hammonds MD Attending Provider Active Team Status: Inactive Member Role Status Dates Dr. Teodoro Farias MD Primary Care Provider Acti ve Tong Ayala MD Attending Provider Active Team Status: Inactive Member Role Status Dates Dr. Teodoro Farias MD Primary Care Provider Acti ve Dr. Leoncio Jorge MD Emergency Provider Active Dr. Radha Hammonds MD Other Provider Active Dr. Jon Whiting DO Admit Provider, Other Provid er Active Dr. Mildred Pedersen DO Attending Provider Active Team Status: Active Member Role Status Dates Dr. Teodoro Farias MD Primary Care Provider Acti ve Dr. Mildred Pedersen DO Attending Provider, Referring Pro vider Active Team Status: Inactive Member Role Status Dates Dr. Teodoro Farias MD Primary Care Provider Acti ve Dr. Radha Hammonds MD Attending Provider, Referring Pr ovider Active Team Status: Active Member Role Status Dates Dr. Teodoro Farias MD Primary Care Provider Acti ve Josh H Roof TICKET ATTENDANT, TICKET ATTENDANT-C Attending Provider, Referring Pro vider Active Team Status: Active Member Role Status Dates Dr. Teodoro Farias MD Primary Care Provider Acti ve Dr. Radha Hammonds MD Attending Provider Active Team Status: Inactive Member Role Status Dates Dr. Teodoro Farias MD Primary Care Provider Acti ve Josh H Roof TICKET ATTENDANT, TICKET ATTENDANT-C Attending Provider, Referring Pro vider Active Team Status: Active Member Role Status Dates Dr. Teodoro Farias MD Primary Care Provider Acti ve Team Status: Inactive Member Role Status Dates Dr. Teodoro Farias MD Primary Care Provider Acti ve Start: June 05, 2024 End: June 05, 2024 Dr. Teodoro Farias MD Referring Provider Active Start: June 05, 2024 End: June 05, 2024 Dr. Radha Hammonds MD Attending Provider Active Start: June 05, 2024 End: June 05, 2024 Team Status: Inactive Member Role Status Dates Dr. Teodoro Farias MD Primary Care Provider Acti ve Start: June 11, 2024 End: June 11, 2024 Dr. Radha Hammonds MD Attending Provider Active Start: June 11, 2024 End: June 11, 2024 Dr. Radha Hammonds MD Referring Provider Active Start: June 11, 2024 End: June 11, 2024 Team Status: Inactive Member Role Status Dates Dr. Teodoro Farias MD Primary Care Provider Acti ve Start: June 29, 2024 End: June 29, 2024 Dr. Radha Hammonds MD Attending Provider Active Start: June 29, 2024 End: June 29, 2024 Dr. Radha Hammonds MD Referring Provider Active Start: June 29, 2024 End: June 29, 2024 Team Status: Active Member Role Status Dates Dr. Teodoro Farias MD Primary Care Provider Acti ve Start: June 29, 2024 Dr. Radha Hammonds MD Attending Provider Active Start: June 29, 2024 Team Status: Inactive Member Role Status Dates Dr. Teodoro Farias MD Primary Care Provider Acti ve Start: July 10, 2024 End: July 10, 2024 Dr. Teodoro Farias MD Attending Provider Active Start: July 10, 2024 End: July 10, 2024 Dr. Teodoro Farias MD Referring Provider Active Start: July 10, 2024 End: July 10, 2024 Team Status: Active Member Role Status Dates Dr. Teodoro Farias MD Primary Care Provider Acti ve Start: August 16, 2024 End: August 16, 2024 Dr. Ernesto Tovar MD Attending Provider Active Start: August 16, 2024 End: August 16, 2024 Dr. Corey Mckeon MD Referring Provider Active Start: August 16, 2024 End: August 16, 2024 Team Status: Inactive Member Role Status Dates Dr. Teodoro Farias MD Primary Care Provider Acti ve Start: August 20, 2024 End: August 20, 2024 Dr. Corey Mckeon MD Attending Provider Active Start: August 20, 2024 End: August 20, 2024 Dr. Corey Mckeon MD Referring Provider Active Start: August 20, 2024 End: August 20, 2024 INFORMATION SOURCE (unrecogn ized section and content) DATE CREATED AUTHOR 09/07/2024 [facility] FOR RECORDS PERTAINING TO PATIENTS WHO ARE OR HAVE BEEN ENROLLED IN A CHEMICAL DEPENDENCY/SUBSTANCEABUSE PROGRAM, SOME INFORMATION MAY BE OMITTED. This clinical summary was aggregated from multiple sources. Caution should be exercised in using it in the provision of clinical care. This summary normalizes information from multiple sources, and as a consequence, information in this document may materially change the coding, format and clinical context of patient data. In addition, data may be omitted in some cases. CLINICAL DECISIONS SHOULD BE BASED ON THE PRIMARY CLINICAL RECORDS. [facility]. provides no warranty or guarantee of the accuracy or completeness of information in this document.
== END 2024-09-11 11:38 | disposition home or self-care (01) ==
LOC: SDC 17:29 → AC 17:29 → SDC 17:29 → MS3 17:30
PROVIDERS: Anesthesiology; Admitting Provider Specialist; PCP Family Medicine; Referring Provider Specialist; Visit Provider Specialist
PROC: (CPT 23472; principal; 2024-09-10 10:00)
DX: M19.011 Primary osteoarthritis, right shoulder (principal); E11.22 Type 2 diabetes mellitus with diabetic chronic kidney disease; N18.32 Chronic kidney disease, stage 3b; K21.9 Gastro-esophageal reflux disease without esophagitis; Z95.5 Presence of coronary angioplasty implant and graft; Z79.890 Hormone replacement therapy; E78.00 Pure hypercholesterolemia, unspecified; Z79.82 Long term (current) use of aspirin; I25.10 Atherosclerotic heart disease of native coronary artery without angina pectoris; I12.9 Hypertensive chronic kidney disease with stage 1 through stage 4 chronic kidney disease, or unspecified chronic kidney disease; Z79.899 Other long term (current) drug therapy; Z79.01 Long term (current) use of anticoagulants; D64.9 Anemia, unspecified; Z79.02 Long term (current) use of antithrombotics/antiplatelets; Z79.84 Long term (current) use of oral hypoglycemic drugs; M81.0 Age-related osteoporosis without current pathological fracture; I25.5 Ischemic cardiomyopathy; E03.9 Hypothyroidism, unspecified; F41.9 Anxiety disorder, unspecified; F32.A Depression, unspecified
CPT/HCPCS: 23472; 01638; 36415; 73030; 80048; 82040; 82962; 83036; 83735; 84443; 85025; 85027; 87081; 88304; 88311; 93005; 94668; 96361; 96365; 96366; 96375; 97166; 99221; C1713; C1776; A4216; G0378; J2405

== ENCOUNTER → 2024-10-17 | Outpatient (CLI) | payer MEDICARE, SELFPAY ==
[2023-05-20 08:36] VITALS: BMI 30.2
[2024-10-17 18:05] LABS: Creatinine, Urine (random) 136.00 mg/dL (28.00-217.00); Microalbumin,Random Urine 35.5 mg/L (<20 mg/L)
== END | disposition home or self-care (01) ==
PROVIDERS: PCP Family Medicine; Referring Provider Family Medicine; Visit Provider Family Medicine
DX: E11.65 Type 2 diabetes mellitus with hyperglycemia (principal)
CPT/HCPCS: 82043; 82570

== ENCOUNTER → 2024-12-26 | Outpatient (CLI) | payer MEDICARE, SELFPAY ==
[2023-05-20 08:36] VITALS: BMI 30.2
[2024-12-26 13:05] LABS: AST(SGOT) 21 U/L (<=31); Alanine Aminotransfer ALT/SGPT 21 U/L (<=34); Albumin, Serum 4.3 g/dL (3.4-4.8); Alkaline Phosphatase 119 U/L (35-104); Anion Gap 13 (5-15); BUN 26 mg/dL (4-19); BUN/Creat Ratio 23.5 RATIO (10-20); Bilirubin, Direct 0.20 mg/dL (0.00-0.30); Calcium,Total 9.8 mg/dL (7.6-11.0); Carbon Dioxide 23.6 mmol/L (21.0-32.0); Chloride 102 mmol/L (98-108); Cholesterol 190 mg/dL (<=200); Globulin 3.1 g/dL (2.2-4.2); Glucose 116 mg/dL (70-99); Low Density Lipoprotein Calc. 111 mg/dL; Potassium 4.5 mmol/L (3.3-5.1); Triglycerides 166 mg/dL; Very Low Density Lipoprotein 33 mg/dL (5-40); cholesterol:hdl ratio screen 3.81
== END | disposition home or self-care (01) ==
LOC: LAB 11:30
PROVIDERS: PCP Family Medicine; Referring Provider Internal Medicine Cardiovascular Disease; Visit Provider Internal Medicine Cardiovascular Disease
DX: I10 Essential (primary) hypertension (principal); E11.9 Type 2 diabetes mellitus without complications; E78.5 Hyperlipidemia, unspecified
CPT/HCPCS: 36415; 80053; 80061; 82248

== ENCOUNTER → 2025-01-17 | Outpatient (CLI) | payer MEDICARE, SELFPAY ==
[2023-05-20 08:36] VITALS: BMI 30.2
--- NOTE | 2025-01-17 07:01 | ECHOD_ITS ---
Reason For Study Reason For Study: DIZZINESS Procedure This was a 2D Doppler, Color Flow transthoracic echocardiogram. Exam performed in department. Left Ventricle Normal size and thickness. Severe inferior, inferior septal and posterior hypokinesis. Apical hypokinesis. Estimated LVEF 35%. Stage I diastolic dysfunction. Right Ventricle Normal right ventricle. Atria The left and right atria are normal. Mitral Valve Hypertrophied posteromedial papillary muscle. Mild (1+) mitral valve insufficiency. Tricuspid Valve Trivial tricuspid valve insufficiency. Normal pulmonary artery pressure. Aortic Valve Trisinus/trileaflet aortic valve. Pulmonic Valve The pulmonic valve is not well visualized. Great Vessels Normal sized aortic root. Pericardium/Pleural No pericardial effusion. MMode/2D Measurements & Calculations LVIDd: 5.1 cm IVSd: 1.0 cm Ao root diam: 2.8 cm LVIDs: 4.0 cm LVPWd: 1.0 cm FS: 20.7 % LAV(MOD-bp): 46.0 ml LVAd ap4: 29.4 cm2 LVAd ap2: 26.4 cm2 LAV(MOD-bp) Indexed: 25.5 ml/m2 LVLd ap4: 8.1 cm LVLd ap2: 7.2 cm LAV(MOD-sp2): 39.4 ml EDV(MOD-sp4): 88.5 ml EDV(MOD-sp2): 79.3 ml LAV(MOD-sp4): 49.1 ml EDV(sp4-el): 91.1 ml EDV(sp2-el): 82.6 ml LVAs ap4: 22.4 cm2 LVAs ap2: 19.5 cm2 LVLs ap4: 7.6 cm LVLs ap2: 6.2 cm ESV(MOD-sp4): 55.7 ml ESV(MOD-sp2): 50.6 ml ESV(sp4-el): 55.7 ml ESV(sp2-el): 52.6 ml EF(MOD-sp4): 37.0 % EF(MOD-sp2): 36.2 % EF(sp4-el): 38.8 % SV(MOD-sp4): 32.7 ml SV(MOD-sp2): 28.7 ml SV(sp4-el): 35.3 ml SI(MOD-sp4): 18.2 ml/m2 SI(MOD-sp2): 16.0 ml/m2 LA A4 area: 16.3 cm2 LA dimension(2D): 4.1 cm RA A4 area: 4.6 cm2 Time Measurements MV dec time: 0.16 sec Doppler Measurements & Calculations MV E max reggie: 63.6 cm/sec Lat Peak E' Reggie: 13.3 cm/sec Med Peak E' Reggie: 4.1 cm/sec MV A max reggie: 103.9 cm/sec E/E' lat: 4.8 E/E' med: 15.4 MV E/A: 0.61 MV V2 max: 120.8 cm/sec Ao V2 max: 160.1 cm/sec MV max P.8 mmHg MV dec slope: 387.5 cm/sec2 Ao max P.3 mmHg MV V2 mean: 73.0 cm/sec Ao V2 mean: 116.6 cm/sec MV mean P.4 mmHg Ao mean P.2 mmHg MV V2 VTI: 27.0 cm Ao V2 VTI: 34.6 cm AV (velocity ratio): 0.66 LV V1 max: 116.9 cm/sec PA V2 max: 121.5 cm/sec TR max reggie: 276.2 cm/sec LV V1 max P.5 mmHg PA V2 mean: 83.4 cm/sec TR max P.5 mmHg LV V1 mean P.2 mmHg LV V1 mean: 82.7 cm/sec LV V1 VTI: 22.8 cm ECHO/Echo Complete Interpretation Summary Severe inferior, inferior septal and posterior hypokinesis. Apical hypokinesis. Estimated LVEF 35%. Stage I diastolic dysfunction. Hypertrophied posteromedial papillary muscle. Mild (1+) mitral valve insufficie ncy. Ordering Physician: Radha Hammonds Referring Physician: Radha Hammonds Performed By: Deepthi Morales RCS
--- OUTSIDE RECORDS SUMMARY | 2025-01-17 07:23 | XMS RPT_ITS | CCD ---
Author Organization [facility] CliniSyri Care Team Providers Care Skid Adzer Name Role Phone Dr. Akbar Farias Primary Care Provider [phone] Dr. Akbar Farias Referring Provider Dr. Floyd Ahmadi Attending Provider Dr. Akbar Farias Primary Care Provider [phone] Dr. Akbar Farias Referring Provider Dr. Floyd Ahmadi Attending Provider Dr. Leoncio Jorge Emergency Provider Dr. Radha Hammonds Attending Provider Cassius, Dr. Garcia Other Provider Dr. Jon Whiting Admit Provider Unavailabl e Dr. Jon Whiting Other Provider Unavailabl e Dr. Mildred Pedersen Attending Provider Dr. Mildred Pedersen Other Provider Dr. Radha Hammonds Referring Provider Roof LABORATORY HELPER, LABORATORY HELPERMicah Pat Attending Provider Dr. Telly Cardoso Attending Provider Dr. Mildred Pedersen Referring Provider Dr. Akbar Farias Primary Care Provider Dr. Leoncio Jorge Emergency Provider Dr. Radha Hammonds Attending Provider Cassius, Dr. Garcia Referring Provider Cassius, Dr. Garcia Other Provider Dr. Jon Whiting Admit Provider Unavailabl e Whiting, Dr. Webb Other Provider Unavailabl e Dr. Mildred Pedersen Attending Provider Dr. Mildred Pedersen Other Provider Dr. Telly Cardoso Attending Provider Dr. Mildred Pedersen Referring Provider Dr. Akbar Farias Referring Provider Ramona LABORATORY HELPER, LABORATORY HELPER-Taniya Pat Attending Provider Dr. Teodoro Farias Primary Care Provider [phone] Dr. Teodoro Farias Referring Provider Dr. Teodoro Farias Primary Care Provider [phone] Dr. Radha Hammonds Attending Provider 1([facility])[phone] Dinora RM, Dr. Valerio Primary Care Provider Dr. Teodoro Farias MD Referring Provider [phone] Cassius RM, Dr. Garcia Attending Provider Cassius RM, Dr. Garcia Referring Provider 1([facility])[phone] Dr. Teodoro Farias MD Attending Provider [phone] La RM, Dr. Orozco Attending Provider Mike RM, Dr. Nicole Referring Provider 1([facility])[phone] Mike RM, Dr. Nicole Attending Provider Mike RM, Dr. Nicole Admit Provider Jessica RM, Dr. Lisbeth Bingham Other Provider Mike RM, Dr. Nicole Other Provider Silverio RM, Dr. Tapia Attending Provider Silverio RM, Dr. Tapia Other Provider Dinora RM, Dr. Valerio Primary Care Provider Cassius RM, Dr. Garcia Attending Provider 1([facility])[phone] Cassius RM, Dr. Garcia Referring Provider [phone] Dinora RM, Dr. Valerio Referring Provider Jessica RM, Dr. Lisbeth Bingham Attending Provider [facility] Care Unavailable Prah, Floyd Attending Unavailable Prah, Floyd Referring Unavailable Mkie, Corey Attending Unavailable [facility] Unavailable Mike, Corey Referring Unavailable [place], Christopher Referring Unavailable [facility] Unavailable [facility], [facility] Attending Unavailable Referred, Self Attending Unavailable [facility] Care Unavailable Lisbeth Lopez Consulting Unavailable [facility] Primary [facility] Unavailable Mike, Corey Admitting Unavailable Mike, Corey Referring Unavailable Mike, Corey Attending Unavailable [facility] Unavailable Prah, Floyd Referring Unavailable Prah, Floyd Attending Unavailable Cassius, Radha Referring Unavailable Cassius, Radha Attending Unavailable [facility] Primary Care Unavailable [facility] Unavailable Prah, Floyd Referring Unavailable Prah, Floyd Attending Unavailable [place] Referring Unavailable [facility], [facility] Attending Unavailable [facility] Unavailable [facility], [facility] Referring Unavailable [facility], Teodoro Attending Unavailable [facility] Unavailable [facility] Unavailable [facility], [facility] Referring Unavailable [facility], Christopher Consulting Unavailable Telly Cardoso Attending Unavailable Lisbeth Lopez Attending Unavailable Lisbeth Lopez Consulting Unavailable [facility] Primary [facility] Unavailable Mike, Corey Admitting Unavailable Mike, Corey Referring Unavailable Mike, Corey Consulting Unavailable Regina Sawyer Attending Unavailable Regina Sawyer Consulting Unavailable [facility] Primary Care Unavailable Mike, Corey Admitting Unavailable Mike, Corey Referring Unavailable Mike, Corey Consulting Unavailable Ernesto Tovar Attending Unavailable [facility] Primary Care Unavailable Mike, Corey Referring Unavailable [facility] Primary Care Unavailable Cassius, Radha Attending Unavailable Cassius, Radha Referring Unavailable [facility] Primary Care Unavailable Cassius, Radha Attending Unavailable Cassius, Radha Referring Unavailable [facility] Primary [facility] Unavailable [place], Christopher Referring Unavailable Cassius, Radha Attending [facility] Unavailable Dinora, Teodoro Referring Unavailable Floyd Ahmadi Attending Unavailable [facility], [facility] Referring Unavailable Cassius, Radha Attending Unavailable [facility], [facility] Unavailable Cassius, Radha Attending Unavailable [place], [place] [facility] Unavailable Cassius, Radha Referring Unavailable Cassius, Radha Attending Unavailable [facility], [facility] Unavailable Referred, Self Attending Unavailable Dinora, [facility] Unavailable Dinora RM, Dr. Valerio Primary Care Physicia n Mike RM, Dr. Nicole Admitting Physician Mike RM, Dr. Nicole Attending Physician Mike RM, Dr. Nicole Referring Provider [phone] Jessica RM, Dr. Lisbeth Bingham Nurse Practitioner Mike RM, Dr. Nicole Nurse Practitioner [phone] Silverio RM, Dr. Tapia Attending Physician Silverio RM, Dr. Tapia Nurse Practitioner Jessica RM, Dr. Lisbeth Bingham Attending Physician Dinora RM, Dr. Valerio Attending Physician Dinora RM, Dr. Valerio Referring Provider Cassius RM, Dr. Garcia Attending Physician Cassius RM, Dr. Garcia Referring Provider Allergies Allergy Classification Reported Allergen(s) Allergy Type Date of Onset Reaction(s) Facility (20 sources) Penicillins; Translations: [Penicillins] Allergy to substance 02-09-2021 Hives [facility] (20 sources) bee venom protein (honey bee) Allergy to substance 02-09-2021 Anaphylaxis [facility] (1 source) bee venom protein (honey bee) Drug allergy (disorder) 12-20-2024 [facility] Repository Medications Current Medications Medication Drug Class(es) Dates Sig (Normalized) Sig (Original) acetaminophen 500 mg oral tablet (20 sources) Start: 09-11-2024 take 2 tablets by mouth every eight hours Start: 08-14-2019 End: 12-20-2024 take 1 tablet by mouth twice daily as needed for pain Acetaminophen 500 MG tablet Discontinued 500 mg PO TWICE DAILY NEEDED as needed for Pain Or Fever August 14, 2019 12:00am December 20, 2024 1:58pm Start: 05-17-2017 End: 05-17-2017 take 1 tablet by mouth every four hours as needed for pain Acetaminophen 500 MG tablet Discontinued 500 mg PO EVERY 4 HOURS NEEDED as needed for Pain 100 0 May 17, 2017 12:00am May 17, 2017 4:34pm calcium carbonate 1500 mg / cholecalciferol 500 unt oral capsule (20 sources) Vitamin D Start: 07-04-2023 Start: 04-05-2023 End: 07-04-2023 Calcium Carbonate-Vitamin D3 [...] take 1 tablet by mouth at bedtime Start: 05-12-2017 End: 01-03-2019 take 1 tablet by mouth at bedtime Citalopram 20 MG tablet Discontinued 20 mg PO AT BEDTIME May 12, 2017 1:00am January 03, 2019 2:35pm dapagliflozin 10 mg oral tablet (1 source) Sodium-Glucose Cotransporter 2 Inhibitor Start: 12-20-2024 take 1 tablet by mouth once daily levothyroxine sodium 0.125 mg oral capsule (20 sources) l-Thyroxine Start: 08-13-2024 Start: 03-10-2023 Start: 06-02-2016 take 112 ug by mouth once daily Levothyroxine Active 112 MCG PO DAILY June 01, 2016 11:00pm losartan potassium 100 mg oral tablet (20 sources) Angiotensin 2 Receptor Richie Start: 04-05-2023 take 1 tablet by mouth once daily Start: 08-03-2016 End: 04-05-2023 take 2 tablets by mouth once daily Losartan 50 MG tablet Discontinued 100 mg PO DAILY August 03, 2016 12:00am April 05, 2023 11:13am blood pressure Start: 08-03-2016 End: 04-05-2023 take 100 mg by mouth once daily Losartan Discontinued 100 MG PO DAILY August 03, 2016 12:00am April 05, 2023 11:13am Start: 08-03-2016 take 50 mg by mouth once daily Losartan Active 50 MG PO DAILY August 02, 2016 11:00pm 24 hr metFORMIN hydrochlorid e 500 mg extended release oral tablet (20 sources) Biguanide Start: 04-05-2023 take 1 tablet by natasha th twice daily Start: 04-05-2023 End: 04-05-2023 take 1 tablet [...] 02, 2016 12:00am February 09, 2021 12:20pm Riqvfrasrlkz-Kt-Ofdd-Mineral s (16 sources) Start: 07-04-2023 take 1 tablet by mouth once daily Scjjtmplmjce-Et-Zfzq-Minerals Active 1 TABLET PO DAILY July 04, 2023 1:03pm Start: 05-12-2017 End: 07-04-2023 Opbhcyprqann-Gq-Iddg-Mineral s Discontinued 1 EACH PO DAILY May 12, 2017 1:00am July 04, 2023 1:03pm Start: 05-12-2017 Multivitamin-C a-Mfbd-Acgggyam Active 1 EACH PO DAILY May 12, 2017 12:00am Start: 05-12-2017 Multivitamin-C c-Vgti-Gipshfhz Active 1 EACH PO DAILY May 12, 2017 1:00am Ytkayqwwyibn-Do-Shiv-Mineral s tablet (6 sources) Start: 07-04-2023 Start: 07-04-2023 Multivitamin-C h-Wjrw-Qbtagpac tablet Active 1 {tbl} PO DAILY July 04, 2023 1:03pm vitamin Start: 07-04-2023 Multivitamin-C f-Jkcb-Tpbbnzkg tablet Active 1 {tbl} PO DAILY July 04, 2023 1:03pm omeprazole 40 mg delayed release oral capsule (20 sources) Proton Pump Inhibitor Start: 04-05-2023 take 1 capsule by mouth once daily Start: 08-03-2016 End: 04-05-2023 take 2 capsules by mouth once daily Omeprazole 20 MG capsule Discontinued 40 mg PO DAILY August 03, 2016 12:00am April 05, 2023 11:12am Start: 08-03-2016 End: 04-05-2023 take 40 mg by mouth once daily Omeprazole Discontinued 40 MG PO DAILY August 03, 2016 12:00am April 05, 2023 11:12am pramipexole dihydrochloride 0.5 mg oral tablet (20 sources) Nonergot Dopamine Agonist Start: 06-02-2016 take 1 tablet by mouth twice daily spironolactone 25 mg oral tablet (5 sources) Aldosterone Antagonist Start: 06-29-2024 take 1 tablet by mouth once daily Completed/Discontinued Medications Medication Drug Class(es) Dates Sig (Normalized) Sig (Original) acetaminophen 325 mg / HYDROcodone bitartrate 5 mg oral tablet (20 sources) Opioid Agonist Start: 05-05-2017 End: 05-17-2017 Hydrocodone-Acetami nophen 1 TABLET tablet Discontinued 1 - 2 {tbl} PO EVERY 4 HOURS NEEDED as needed for Pain May 05, 2017 1:00am May 17, 2017 6:28pm Fracture of right ankle Other fracture of right lower leg, initial encounter for closed fracture Start: 05-05-2017 End: 05-17-2017 take 1 tablet by mouth every four hours as needed Hydrocodone-Acetaminophen Discontinued 1 - 2 TABLET PO EVERY 4 HOURS NEEDED 24 05May 05, 2017 1:00am May 17, 2017 6:28pm amLODIPine 5 mg oral tablet (20 sources) Dihydropyridine Calcium Channel Richie Start: 08-14-2019 End: 06-05-2024 take 1 tablet by mouth once daily Amlodipine 5 MG tablet Discontinued 5 mg PO DAILY August 14, 2019 12:00am June 05, 2024 2:20pm Apixaban (14 sources) Factor Xa Inhibitor Start: 03-10-2023 End: 03-11-2023 take 1 tablet by mouth every twelve hours, then take 1 tablet by mouth twice daily, then take 5 mg by mouth twice daily Apixaban (Apixaban 5 Mg (74 Tabs) Tablets In A Dose Pack) 5 mg (74 tabs) tablets,dose pack Discontinued 10 mg PO Q12H March 10, 2023 1:00am March 11, 2023 1:54pm blood thinner pt just had filled. not started yet. [...] bid for 1 week then 5mg bid ascorbic acid 500 mg oral capsule (4 sources) Vitamin C Start: 08-13-2024 End: 12-20-2024 take 1 capsule by mouth once daily Ascorbic Acid (Vitamin C) 500 mg capsule Discontinued 500 mg PO DAILY August 13, 2024 12:00am December 20, 2024 1:55pm SUPPLEMENT aspirin 81 mg oral tablet (17 sources) Platelet Aggregation Inhibitor, Nonsteroidal Anti-inflammatory Drug Start: 09-11-2024 End: 12-20-2024 take 1 capsule by mouth twice daily Aspirin 81 mg capsule Discontinued 81 mg PO TWICE A DAY 60 30 0 September 11, 2024 12:00am December 20, 2024 1:58pm Start: 03-11-2023 take 1 tablet by mouth once da surya Aspirin, Baby (14 sources) Start: 05-05-2017 End: [...] 2017 9:00am Aspirin, Baby 81 MG tablet (6 sources) Start: 05-05-2017 End: 05-17-2017 take 1 tablet by mouth at bedtime Aspirin, Baby 81 MG tablet Discontinued 81 mg PO AT BEDTIME May 05, 2017 1:00am May 17, 2017 9:00am atorvastatin 80 mg oral tablet (20 sources) HMG-CoA Reductase Inhibitor Start: 03-11-2023 End: 01-23-2024 take 1 tablet by mouth at bedtime Atorvastatin 80 mg tablet Discontinued 80 mg PO AT BEDTIME 90 3 April 05, 2023 12:06pm January 23, 2024 9:37am Start: 06-02-2016 End: 03-11-2023 take 1 tablet by mouth at bedtime Atorvastatin 40 MG tablet Discontinued 40 mg PO AT BEDTIME June 02, 2016 12:00am March 11, 2023 1:25pm calcium carbonate 1250 mg chewable tablet (14 sources) Start: 03-10-2023 End: 04-05-2023 take 1 tablet by mouth once daily Calcium Carbonate (Calcium 500) 500 mg calcium (1,250 mg) tablet,chewable Discontinued 500 mg PO DAILY March 10, 2023 1:00am April 05, 2023 11:15am calcium carvedilol 12.5 mg oral tablet (20 sources) alpha-Adrenergic Richie, beta-Adrenergic Richie Start: 03-11-2023 End: 03-26-2024 take 1 tablet by mouth twice daily Carvedilol 12.5 mg tablet Discontinued 12.5 mg PO TWICE A DAY 180 April 05, 2023 12:07pm March 26, 2024 9:45am clindamycin 150 mg oral capsule (20 sources) Lincosamide Antibacterial Start: 05-17-2017 End: 01-03-2019 take 2 capsules by mouth three times daily Clindamycin Hcl 150 MG capsule Discontinued 300 mg PO THREE TIMES A DAY 12 2 0 May 17, 2017 12:00am January 03, 2019 2:36pm help prevent infection Start: 05-17-2017 End: 01-03-2019 take 300 mg by mouth three times daily Clindamycin Hcl Discontinued 300 MG PO THREE TIMES A DAY 12 2 May 17, 2017 12:00am January 03, 2019 2:36pm clopidogrel 75 mg oral tablet (20 sources) P2Y12 Platelet Inhibitor Start: 03-11-2023 End: 03-26-2024 take 1 tablet by mouth once daily Clopidogrel 75 mg tablet Discontinued 75 mg PO DAILY 90 April 05, 2023 12:07pm March 26, 2024 9:45am famotidine 20 mg oral tablet (3 sources) Histamine-2 Receptor Antagonist Start: 09-11-2024 End: 12-20-2024 take 1 tablet by mouth once daily Famotidine 20 mg Tablet Discontinued 20 mg PO DAILY 30 30 0 September 11, 2024 12:00am December 20, 2024 1:57pm ferrous sulfate 325 mg oral tablet (4 sources) Start: 08-13-2024 End: 12-20-2024 take 1 tablet by mouth once daily Ferrous Sulfate (Feosol) 325 mg (65 mg iron) tablet Discontinued 325 mg PO daily August 13, 2024 12:00am December 20, 2024 1:55pm hydroCHLOROthiazide 25 mg oral tablet (14 sources) Thiazide Diuretic Start: 03-11-2023 End: 04-05-2023 take 1 tablet by mouth once daily Hydrochlorothiazide 25 mg Tablet Discontinued 25 mg PO DAILY 30 March 11, 2023 1:00am April 05, 2023 12:04pm metoprolol tartrate 50 mg oral tablet (14 sources) beta-Adrenergi c Richie Start: 03-10-2023 End: 03-11-2023 take 1 tablet by mouth once daily Metoprolol Tartrate 50 mg tablet Discontinued 50 mg PO DAILY March 10, 2023 1:00am March 11, 2023 1:27pm blood pressure pt just got filled. not yet started Hofesvfaypsf-Om-Jicm-Min erals 1 EACH tablet (6 sources) Start: 05-12-2017 End: 07-04-2023 take 1 tablet by mouth once daily Bfmlhhkxwutm-Ip-Enwt-Mi nerals 1 EACH tablet Discontinued 1 NMA PO DAILY May 12, 2017 1:00am July 04, 2023 1:03pm vitamin Start: 05-12-2017 End: 07-04-2023 take 1 tablet by mouth once daily Fkujqudlqjzk-Je-Ipiy-Minerals 1 EACH tab let Discontinued 1 NMA PO DAILY May 12, 2017 1:00am July 04, 2023 1:03pm naproxen sodium 220 mg oral tablet (20 sources) Nonsteroidal Anti-inflammatory Drug Start: 05-17-2017 End: 03-10-2023 take 2 tablets by mouth twice daily at mealtime Naproxen Sodium 220 MG tablet Discontinued 440 mg PO TWICE A DAY 60 0 May 17, 2017 6:30pm March 10, 2023 [...] niacin 500 mg extended release oral tablet (20 sources) Nicotinic Acid Start: 06-02-2016 End: 03-10-2023 Niacin 500 MG tablet extended release 24 hr Discontinued 1000 mg PO AT BEDTIME June 02, 2016 12:00am March 10, 2023 2:55pm Start: 06-02-2016 End: 03-10-2023 take 1000 mg by mouth at bedtime Niacin Discontinued 1000 MG PO AT BEDTIME June 02, 2016 12:00am March 10, 2023 2:55pm oxyCODONE hydrochloride 5 mg oral tablet (20 sources) Opioid Agonist Start: 09-11-2024 End: 12-20-2024 take 5-10 mg by mouth every four hours as needed for pain Oxycodone 5 mg Tablet Discontinued 5 - 10 mg PO EVERY 4 HOURS NEEDED as needed for As needed for pain 42 7 0 September 11, 2024 December 20, 2024 1:56pm 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 Start: 05-17-2017 End: 05-17-2017 take 2 tablets by mouth every four hours as needed for pain Oxycodone 5 MG tablet Discontinued 10 mg PO EVERY 4 HOURS NEEDED as needed for Pain 30 3 May 17, 2017 12:00am May 17, 2017 4:34pm Trimalleolar fracture of right ankle Start: 05-17-2017 End: 05-17-2017 take 10 mg by mouth every four hours as needed Oxycodone Discontinued 10 MG PO EVERY 4 HOURS NEEDED 30 3 May 17, 2017 12:00am May 17, 2017 4:34pm Problems Active Problems Problem Classification Problem Date Documented Da te Episodic/Chronic Acute myocardial infarction (18 sources) Myocardial infarction; Translations: [ST elevation (STEMI) myocardial infarction of unspecified site] Onset: 03-07-2023 03-09-2023 Chronic Cancer of breast (20 sources) Infiltrating duct carcinoma of breast; Translations: [Malignant neoplasm of unspecified site of unspecified female breast] Chronic Coronary atherosclerosis and other heart disease (20 sources) Coronary arteriosclerosis; Translations: [Atherosclerotic heart disease of [place] coronary artery without angina pectoris] Onset: 12-20-2024 03-09-2023 Chronic Comment on above: History of inferior ST elevation myocardial infarction in March 2023. Coronary atherosclerosis and other heart disease (20 sources) Stented coronary artery; Translations: [Presence of coronary angioplasty implant and graft] Onset: 03-07-2022 03-10-2023 Episodic Comment on above: Prox RCA- Faulk 3 .5x30 mm 03/09/23 Deficiency and other anemia (17 sources) Anemia; Translations: [Anemia, unspecified] 03-10-2023 Episodic Diabetes mellitus with complications (1 source) Type 2 diabetes mellitus with hyperglycemia; Translations: [Type 2 diabetes mellitus with hyperglycemia] Onset: 10-26-2024 Chronic Diabetes mellitus without complication (20 sources) Type 2 diabetes mellitus; Translations: [Type 2 diabetes mellitus without complications] Onset: 09-20-2024 01-03-2019 Chronic Diseases of white blood cells (20 sources) Leukocytosis; Translations: [Elevated white blood cell count, unspecified] 03-10-2023 Chronic Disorders of lipid metabolism (20 sources) Dyslipidemia; Translations: [Hyperlipidemia, unspecified] Onset: 12-20-2024 03-09-2023 Chronic Essential hypertension (20 sources) Hypertensive disorder; Translations: [Essential (primary) hypertension] Onset: 12-28-2024 01-03-2019 Chronic Comment on above: PER PT, CONTROLLED O N MEDS Fracture of lower limb (20 sources) Trimalleolar fracture; Translations: [Displaced trimalleolar fracture of right lower leg, initial encounter for closed fracture] 01-03-2019 Episodic Heart valve disorders (12 sources) Mitral valve regurgitation; Translations: [Nonrheumatic mitral (valve) insufficiency] Onset: 12-20-2024 12-06-2023 Chronic Nonmalignant breast conditions (20 sources) Cyst of breast; Translations: [Solitary cyst of unspecified breast] Episodic Osteoarthritis (4 sources) Osteoarthritis; Translations: [Unspecified osteoarthritis, unspecified site] Onset: 09-28-2024 09-11-2024 Chronic Other connective tissue disease (6 sources) History of reverse prosthetic total arthroplasty of right shoulder; Translations: [Presence of right artificial shoulder joint] 09-11-2024 Chronic Other connective tissue disease (1 source) Presence of right artificial shoulder joint; Translations: [Presence of right artificial shoulder joint] Onset: 09-11-2024 Chronic Other non-epithelial cancer of skin (20 sources) Past history of procedure; Translations: [Personal history of other malignant neoplasm of skin] 01-29-2019 Episodic Comment on above: X2 Residual codes; unclassified (20 sources) Finding related to sleep; Translations: [Sleep apnea, unspecified] 01-03-2019 Chronic Residual codes; unclassified (20 sources) History of ankle surgery; Translations: [Other specified postprocedural states] 01-29-2019 Episodic Comment on above: Right Residual codes; unclassified (1 source) H/O: fracture; Translations: [Other specified postprocedural states] Episodic Residual codes; unclassified (20 sources) History of reconstruction of right breast; Translations: [Other specified postprocedural states] 01-29-2019 Episodic Comment on above: 2011 Residual codes; unclassified (20 sources) History of colonoscopy; Translations: [Other specified postprocedural states] 01-29-2019 Episodic Comment on above: 2015 Residual codes; unclassified (20 sources) History of right mastectomy; Translations: [Acquired absence of right breast and nipple] 01-29-2019 Episodic Comment on above: 2005 Thyroid disorders (20 sources) Hypothyroidism; Translations: [Hypothyroidism, [...] no malignancy. Labs reviewed, within normal limits. Deficiency and other anemia (9 sources) Anemia, unspecified; Translations: [Anemia, unspecified] Onset: 07-16-2024 03-11-2023 Episodic Other lower respiratory disease (2 sources) Dyspnea, unspecified; Translations: [Dyspnea, unspecified] Onset: 03-19-2024 Episodic Other screening for suspected conditions (not mental disorders or infectious disease) (1 source) Encounter for screening mammogram for malignant neoplasm of breast; Translations: [Encounter for screening mammogram for malignant neoplasm of breast] Onset: 02-21-2024 Episodic Results Test Name Value Interpretation Reference Range Facility Anion gap in Serum or Plasma Ordered By: Radha Hammonds on 12-26-2024 Anion gap [Moles/Vol] 13 mmol/L 5-15 [facility] BUN/creatinine ratioOrdered By: Radha Hammonds on 12-26-2024 Urea nitrogen/Creatinine [Mass ratio] 23.5 mg/mg High 12-24 [facility] Bilirubin directOrdered By: Radha Hammonds on 12-26-2024 Bilirubin.direct [Mass/Vol] 0.20 mg/dL 0.00-0.30 [facility] Bilirubin, Directon 12-27-19 25 Bilirubin.direct [Mass/Vol] 0.20 mg/dL Normal 0.00-0.30 [facility] Comment on above: Performed By: #### L 501.4700, L500.4100, L500.4050 #### [facility] [address] [place], [place], [id number] Bilirubin, totalOrdered By: Radha Hammonds on 12-26-2024 Bilirubin [Mass/Vol] 0.56 mg/dL 0.00-1.[address] [facility] Calculated very low density lipoprotein (VLDL) cholesterol measurementOrdered By: Radha Hammonds on 12-26-2024 Calculated very low density lipoprotein (VLDL) cholesterol measurement 33 mg/dL [facility] Carbon dioxide, total [Moles /volume] in Central venous bloodOrdered By: Radha Hammonds on 12-26-2024 CO2 [Moles/Vol] 23.6 mmol/L 21.0-32.0 [facility] Chloride assayOrdered By: Med Hammonds on 12-26-2024 Chloride [Moles/Vol] 102 mmol/L 98-[address] [facility] Comprehensive Metabolic Prof ilon 12-26-2024 Albumin [Mass/Vol] 4.3 g/dL Normal 3.4-4.8 [facility] Comment on above: Performed By: #### L [id number], L500.4100, [id number] #### [facility] [address] [place], [place], [id number] Albumin/Globulin [Mass ratio] 1.4 {ratio} Normal 0.9-2.4 [facility] Comment on above: Performed By: #### L 501.4700, L500.4100, L500.4050 #### [facility] Laboratory [address] [place], [address] ALK PHOS 119 U/L High 35-104 [facility] Comment on above: Performed By: #### L 501.4700, L500.4100, L500.4050 #### [facility] [address] [place], [address] ALT [Catalytic activity/Vol] 21 U/L Normal <=34 [facility] Comment on above: Performed By: #### L 501.4700, L500.4100, L500.4050 #### [facility] [address] [place], [address] AST [Catalytic activity/Vol] 21 U/L Normal <=31 [facility] Comment on above: Performed By: #### L 501.4700, L500.4100, L500.4050 #### [facility] [address] [place], [address] Bilirubin [Mass/Vol] 0.56 mg/dL Normal 0.00-1.[address] [facility] Comment on above: Performed By: #### L 501.4700, L500.4100, L500.4050 #### [facility] [address] [place], [address] BUN/CRE 23.5 RATIO High 10-20 [facility] Comment on above: Performed By: #### L 501.4700, L500.4100, L500.4050 #### [facility] [address] [place], [address] Calcium [Mass/Vol] 9.8 mg/dL Normal 7.6-11.0 [facility] Comment on above: Performed By: #### L 501.4700, L500.4100, L500.4050 #### [facility] [address] [place], [address] Chloride [Moles/Vol] 102 mmol/L Normal 98-[address] [facility] Comment on above: Performed By: #### L 501.4700, L500.4100, L500.4050 #### [facility] [address] [place], [address] CO2 [Moles/Vol] 23.6 mmol/L Normal 21.0-32.0 [facility] Comment on above: Performed By: #### L 501.4700, L500.4100, L500.4050 #### [facility] [address] [place], [address] Creatinine [Mass/Vol] 1.10 mg/dL Normal 0.70-1.20 [facility] Comment on above: Performed By: #### L 501.4700, L500.4100, L500.4050 #### [facility] [address] [place], [address] GAP 13 Normal 5-15 [facility] Comment on above: Performed By: #### L 501.4700, L500.4100, L500.4050 #### [facility] [address] [place], [address] GFR/1.73 sq M.predicted among non-blacks MDRD (S/P/Bld) [Vol rate/Area] 53 mL/min/{1.73_m2} Low >60 [facility] Comment on above: Result Comment: mL/m in/1.73m2 CKD-EPI Creatinine Equation (2020) Performed By: #### L 501.4700, L500.4100, L500.4050 #### [facility] [address] [place], [address] Globulin (S) [Mass/Vol] 3.1 g/dL Normal 2.2-4.2 [facility] Comment on above: Performed By: #### L 501.4700, L500.4100, L500.4050 #### [facility] [address] [place], [address] Glucose [Mass/Vol] 116 mg/dL High 70-99 [facility] Comment on above: Performed By: #### L 501.4700, L500.4100, L500.4050 #### [facility] [address] [place], [address] Potassium [Moles/Vol] 4.5 mmol/L Normal 3.3-5.1 [facility] Comment on above: Performed By: #### L 501.4700, L500.4100, L500.4050 #### [facility] [address] [place], [address] Sodium [Moles/Vol] 138 mmol/L Normal 133-145 [facility] Comment on above: Performed By: #### L 501.4700, L500.4100, L500.4050 #### [facility] [address] [place], [address] T PROT 7.4 g/dL Normal 5.9-8.4 [facility] Comment on above: Performed By: #### L 501.4700, L500.4100, L500.4050 #### [facility] [address] [place], [address] Urea nitrogen [Mass/Vol] 26 mg/dL High 4-19 [facility] Comment on above: Performed By: #### L 501.4700, L500.4100, L500.4050 #### [facility] [address] [place], [address] Glomerular filtration rate ( GFR) estimation/1.73 sq m using serum, plasma, or whole bOrdered By: Radha Hammonds on 12-26-2024 GFR/1.73 sq M.predicted among non-blacks MDRD (S/P/Bld) [Vol rate/Area] 53 mL/min/{1.73_m2} Low >60 [facility] Comment on above: mL/min/1.73m2 CKD-EP I Creatinine Equation (2020) LDL calc ser/plasOrdered By: Radha Hammonds on 12-26-2024 Cholesterol in LDL [Mass/Vol] 111 mg/dL [facility] Comment on above: Wlgrkswdly=443-504 m g/dL & Higher Jtsi=961 mg/dL or greaterSampson Equation 2020 for LDL-C Laboratory - Chemistry and C hemistry - challengeOrdered By: Radha Hammonds on 12-26-2024 AST [Catalytic activity/Vol] 21 U/L <32 [facility] Lipid Profileon 12-26-2024 CHOL:HDL 3.81 Normal [facility] Comment on above: Performed By: #### L 501.4700, L500.4100, L500.4050 #### [facility] [address] [facility] [place], [address] Cholesterol [Mass/Vol] 190 mg/dL Normal <=200 [facility] Comment on above: Result Comment: Chol esterol level, Desirable <200 mg/dL Borderline high cholesterol 200-239 mg/dL High cholesterol >=240 mg/dL Recommendations of the NCEP Adult Treatment Panel for the following risk-cutoff thresholds for the [place] population. Performed By: #### L 501.4700, L500.4100, L500.4050 #### [facility] [address] [place], [address] Cholesterol in HDL [Mass/Vol] 50 mg/dL Normal [facility] Comment on above: Result Comment: Leah onal Cholesterol Education Program (NCEP) guidelines: <40 mg/dL: Low HDL-cholesterol (major risk factor for CHD) >= 60 mg/dL: High HDL-cholesterol (negative risk factor for CHD) HDL-cholesterol is affected by a number of factors, e.g. smoking, exercise, hormones, sex and age. Performed By: #### L 501.4700, L500.4100, L500.4050 #### [facility] [address] [place], [address] Cholesterol in LDL [Mass/Vol] 111 mg/dL Normal [facility] Comment on above: Result Comment: Bord ykmyzq=762-510 mg/dL Higher Gcxs=828 mg/dL or greater Kitchen Equation 2020 for LDL-C Performed By: #### L 501.4700, L500.4100, L500.4050 #### [facility] [address] [place], [address] Cholesterol in VLDL [Mass/Vol] 33 mg/dL Normal 5-40 [facility] Comment on above: Performed By: #### L 501.4700, L500.4100, L500.4050 #### [facility] [address] [place], [address] Triglyceride [Mass/Vol] 166 mg/dL Normal [facility] Comment on above: Result Comment: The drugs N-Acetylcysteine and Metamizole may falsely depress this assay. Normal range: <150 mg/dL Borderline High: 150-199 mg/dL High: 200-499 mg/dL Very High: >500 mg/dL Performed By: #### L 501.4700, L500.4100, L500.4050 #### [facility] [address] [place], [address] Liver Profileon 12-26-2024 ALB Normal 3.4-4.8 [facility] Comment on above: Result Comment: DUP Performed By: #### L 501.9985, L501.9520 #### [facility] [address] [place], [address] ALK PHOS Normal 35-104 [facility] Comment on above: Result Comment: DUP Performed By: #### L 501.9985, L501.9520 #### [facility] [address] [place], [address] ALT Normal <=34 [facility] Comment on above: Result Comment: DUP Performed By: #### L 501.9985, L501.9520 #### [facility] [address] [place], [address] AST Normal <=31 [facility] Comment on above: Result Comment: DUP Performed By: #### L 501.9985, L501.9520 #### [facility] [address] [place], [address] D BILI Normal 0.00-0.30 [facility] Comment on above: Result Comment: DUP Performed By: #### L 501.9985, L501.9520 #### [facility] [address] [place], [address] T BILI Normal 0.00-1.30 [facility] Comment on above: Result Comment: DUP Performed By: #### L 501.9985, L501.9520 #### [facility] [address] [place], [address] T PROT Normal 5.9-8.4 [facility] Comment on above: Result Comment: DUP Performed By: #### L 501.9985, L501.9520 #### [facility] [address] [place], [address] Potassium measurement (mass/ volume)Ordered By: Radha Hammonds on 12-26-2024 Potassium (Unsp spec) [Mass/Vol] 4.5 mmol/L 3.3-5.1 [facility] Screening total cholesterol/ high density lipoprotein (HDL) cholesterol ratioOrdered By: Radha Hammonds on 12-26-2024 Cholesterol.total/Choles terol in HDL [Mass ratio] 3.81 {ratio} [facility] Serum creatinine measurement (mass/volume)Ordered By: Radha Hammonds on 12-26-2024 Creatinine [Mass/Vol] 1.10 mg/dL 0.70-1.20 [facility] Serum globulin measurementOr dered By: Radha Hammonds on 12-26-2024 Globulin (S) [Mass/Vol] 3.1 g/dL 2.2-4.2 [facility] Serum glucose measurement (m ass/volume)Ordered By: Radha Hammonds on 12-26-2024 Glucose [Mass/Vol] 116 mg/dL High 70-99 [facility] Serum or plasma alanine urbano otransferase (ALT) measurementOrdered By: Radhagertrude Hammonds on 12-26-2024 ALT [Catalytic activity/Vol] 21 U/L <35 [facility] Serum or plasma albumin peng urement (mass/volume)Ordered By: Radha Cassius on 12-26-2024 Albumin [Mass/Vol] 4.3 g/dL 3.4-4.8 [facility] Serum or plasma albumin/glob ulin mass ratioOrdered By: Radha Cassius on 12-26-2024 Albumin/Globulin [Mass ratio] 1.4 {ratio} 0.9-2.4 [facility] Serum or plasma alkaline reji sphatase measurementOrdered By: Radha Hammonds on 12-26-2024 ALP [Catalytic activity/Vol] 119 U/L High 35-104 [facility] Serum or plasma calcium peng urement (mass/volume)Ordered By: Radha Hammonds 12-26-2024 Calcium [Mass/Vol] 9.8 mg/dL 7.6-11.0 [facility] Serum or plasma cholesterol in HDL measurement (mass/volume)Ordered By: Radha Hammonds 12-26-2024 Cholesterol in HDL [Mass/Vol] 50 mg/dL >40 [facility] Comment on above: National Cholesterol Education Program (NCEP) guidelines:<40 mg/dL: Low HDL-cholesterol (major risk factor for CHD)>= 60 mg/dL: High HDL-cholesterol (negative risk factor for CHD)HDL-cholesterol is affected by a number of factors, e.g. smoking, exercise, hormones, sex and age. Serum or plasma cholesterol measurement (mass/volume)Ordered By: Radha Hammonds on 12-26-2024 Cholesterol [Mass/Vol] 190 mg/dL <201 [facility] Comment on above: Cholesterol level, D esirable <200 mg/dLBorderline high cholesterol 200-239 mg/dLHigh cholesterol >=240 mg/dLRecommendations of the NCEP Adult Treatment Panel for the following risk-cutoff thresholds for the [place] population. Serum or plasma urea nitroge n measurement (mass/volume)Ordered By: Radha Hammonds on 12-26-2024 Urea nitrogen [Mass/Vol] 26 mg/dL High 4-19 [facility] Sodium levelOrdered By: Ganesh Hammonds on 12-26-2024 Sodium [Moles/Vol] 138 mmol/L 133-145 [facility] Total proteinOrdered By: Chidi Hammonds on 12-26-2024 Protein [Mass/Vol] 7.4 g/dL 5.9-8.4 [facility] Triglycerides measurementOrd ered By: Radha Hammonds on 12-26-2024 Triglyceride [Mass/Vol] 166 mg/dL <199 [facility] Comment on above: The drugs N-Acetylcy steine and Metamizole may falsely depress this assay. Normal range: <150 mg/dLBorderline High: 150-199 mg/dLHigh: 200-499 mg/dLVery High: >500 mg/dL Cardiology Visit Reporton Cardiology Visit Report [facility] [address] [place], [place] [address] OFFICE VISIT Date of Service: 12/20/24 MR#: [id number] Acct: [id number] Name: ELOISA TSANG SUE Rep #: [id number] : 1950 Provider: Dr. 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 Denies any chest pains either at rest or with exertion. However with strenuous exertion, she feels lightheaded and breaks out in a sweat. No shortness of breath. Denies orthopnea or PND. No ankle edema. Denies palpitations. 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 Instructions: Resume on 09/11/24. losartan 100 mg tablet 100 mg PO DAILY 04/05/23 12/20/24 History metformin 500 mg tablet,extended 500 mg PO BID 04/05/23 12/20/24 Hi story release 24 hr omeprazole 40 mg capsule,delayed 40 mg PO DAILY 04/05/23 12/20/24 H istory release calcium 600 mg (as 1 cap PO BID 07/04/23 12/20/24 His tory carbonate)-vitamin D3 12.5 mcg (500 unit) capsule (Calcium with Vit D3) [id number]-Uz-[id number] -minerals 1 tab PO DAILY vitamin 07/04/23 History atorvastatin 80 mg tablet 80 mg PO QHS #90 tabs 01/23/24 Rx carvedilol 12.5 mg tablet 12.5 mg PO BID #180 tabs 03/26/24 12/20/24 Rx clopidogrel 75 mg tablet 75 mg PO DAILY #90 tabs 03/26/24 1 Rx spironolactone 25 mg tablet 25 mg PO DAILY #30 tabs 06/29/24 1 Rx levothyroxine 125 mcg capsule 62.5 mcg PO DAILY BAXTER 08/13/2412/05 History acetaminophen 500 mg tablet 1,000 mg (2 x 500 mg) PO Q8H #0 12/20/24 Rx tabs Ejection fraction %: 35 Have you fallen in the past year?: No PFSH Medical History Wears glasses Arthritis Low iron Restless legs Gastric reflux Non-smoker Shortness of breath on exertion History of echocardiogram History of stress test History of Holter monitoring Cardiology follow-up encounter History of heart attack Ischemic cardiomyopathy Atherosclerosis of coronary artery of [place] heart without angina pectoris 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 Normal [facility] Microalb:Creat Ratio,Random URon 10-17-2024 Creatinine [Mass/Vol] 136.00 mg/dL Normal 28.00-217.00 [facility] Comment on above: Performed By: #### L 501.4700, L500.4100, L500.4050 #### [facility] Laboratory [address] [place], [address] MALB:CREAT 26.1 mg/g CRE Normal <30 mg/g CRE [facility] Comment on above: Performed By: #### L 501.4700, L500.4100, L500.4050 #### [facility] [address] [place], [address] MICROALBUMIN,UR 35.5 mg/L Normal <20 mg/L [facility] Comment on above: Performed By: #### L 501.4700, L500.4100, L500.4050 #### [facility] [address] [place], [address] Random urine creatinine peng urement (mass/volume)Ordered By: Teodoro Farias on 10-17-2024 Creatinine Unsp time (U) [Mass/Vol] 136.00 mg/dL 28.00-217.00 [facility] Urine albumin measurement [facility] detection limit of 20 mg/L or less (mass/volume)Ordered By: Teodoro Farias on 10-17-2024 Albumin DL <= 20 mg/L (U) [Mass/Vol] 35.5 mg/L <20 mg/L [facility] Anion gap in Serum or Plasma Ordered By: Corey Mckeon on 09-11-2024 Anion gap [Moles/Vol] 13 mmol/L 07-19 [facility] BUN/creatinine ratioOrdered By: Corey Mckeon on 09-11-2024 Urea nitrogen/Creatinine [Mass ratio] 18.7 mg/mg - [facility] Basic Metabolic Profile (BMP )on 09-11-2024 BUN/CRE 18.7 RATIO Normal 12-24 [facility] Comment on above: Performed By: #### L 100.0500, L500.2500 #### [facility] [address] [place], [address] Calcium [Mass/Vol] 8.9 mg/dL Normal 7.6-11.0 [facility] Comment on above: Performed By: #### L 100.0500, L500.2500 #### [facility] [address] [place], [address] Chloride [Moles/Vol] 103 mmol/L Normal 98-[address] [facility] Comment on above: Performed By: #### L 100.0500, L500.2500 #### [facility] [address] [place], [address] CO2 [Moles/Vol] 20.7 mmol/L Low 21.0-32.0 [facility] Comment on above: Performed By: #### L 100.0500, L500.2500 #### [facility] [address] [place], [address] Creatinine [Mass/Vol] 0.96 mg/dL Normal 0.70-1.20 [facility] Comment on above: Performed By: #### L 100.0500, L500.2500 #### [facility] [address] [place], [address] ECRCL 53.45 ml/min Normal 50-250 [facility] Comment on above: Performed By: #### L 100.0500, L500.2500 #### [facility] [address] [place], [address] GAP 13 Normal 5-15 [facility] Comment on above: Performed By: #### L 100.0500, L500.2500 #### [facility] [address] [place], [address] GFR/1.73 sq M.predicted among non-blacks MDRD (S/P/Bld) [Vol rate/Area] 63 mL/min/{1.73_m2} Normal >60 [facility] Comment on above: Result Comment: mL/m in/1.73m2 CKD-EPI Creatinine Equation (2020) Performed By: #### L 100.0500, L500.2500 #### [facility] [address] [place], [address] Glucose [Mass/Vol] 184 mg/dL High 70-99 [facility] Comment on above: Performed By: #### L 100.0500, L500.2500 #### [facility] [address] [place], [address] Potassium [Moles/Vol] 4.3 mmol/L Normal 3.3-5.1 [facility] Comment on above: Performed By: #### L 100.0500, L500.2500 #### [facility] [address] [place], [address] Sodium [Moles/Vol] 137 mmol/L Normal 133-145 [facility] Comment on above: Performed By: #### L 100.0500, L500.2500 #### [facility] [address] [place], [address] Urea nitrogen [Mass/Vol] 18 mg/dL Normal 4-19 [facility] Comment on above: Performed By: #### L 100.0500, L500.2500 #### [facility] [address] [place], [address] Bedside Glucoseon 09-11-2024 FINGERSTICK GLU 167 mg/dL High 74-106 [facility] Comment on above: Result Comment: GURIVNDER CHOI OF PATIENT CARE PER NURSING PROTOCOL Performed By: #### L 501.9985, L501.9520 #### [facility] [address] [place], [address] CBC-Complete Blood Cnt No Di ffon 09-11-2024 Erythrocyte distribution width (RBC) [Ratio] 14.6 % Normal 11.6-14.6 [facility] Comment on above: Performed By: #### L 100.0500, L500.2500 #### [facility] [address] [place], [address] Hematocrit (Bld) [Volume fraction] 31.8 % Low 37-47 [facility] Comment on above: Performed By: #### L 100.0500, L500.2500 #### [facility] [address] [place], [address] Hemoglobin (Bld) [Mass/Vol] 10.6 g/dL Low 12.0-15.0 [facility] Comment on above: Performed By: #### L 100.0500, L500.2500 #### [facility] Laboratory [address] [place], [address] MCH (RBC) [Entitic mass] 30.2 pg Normal 27.0-32.0 [facility] Comment on above: Performed By: #### L 100.0500, L500.2500 #### [facility] [address] [place], [address] MCHC (RBC) [Mass/Vol] 33.3 g/dL Normal 32-36 [facility] Comment on above: Performed By: #### L 100.0500, L500.2500 #### [facility] [address] [place], [address] MCV (RBC) [Entitic vol] 90.6 fL Normal 81-99 [facility] Comment on above: Performed By: #### L 100.0500, L500.2500 #### [facility] [address] [place], [address] Platelet mean volume (Bld) [Entitic vol] 9.8 fL Normal 6.2-12.0 [facility] Comment on above: Performed By: #### L 100.0500, L500.2500 #### [facility] Laboratory [address] [place], [address] Platelets (Bld) [#/Vol] 239 10*3/uL Normal 150-450 [facility] Comment on above: Performed By: #### L 100.0500, L500.2500 #### [facility] [address] [place], [address] RBC (Bld) [#/Vol] 3.51 10*6/uL Low 4.2-5.4 [facility] Comment on above: Performed By: #### L 100.0500, L500.2500 #### [facility] [address] [place], [address] RDW SD 48.1 fl High 35.1-43.9 [facility] Comment on above: Performed By: #### L 100.0500, L500.2500 #### [facility] Laboratory [address] [place], [address] WBC (Bld) [#/Vol] 15.4 10*3/uL High 4.4-11.0 [facility] Comment on above: Performed By: #### L 100.0500, L500.2500 #### [facility] Laboratory [address] [place], [address] Carbon dioxide, total [Moles /volume] in Central venous bloodOrdered By: Corey Mckeon on 09-11-2024 CO2 [Moles/Vol] 20.7 mmol/L Low 21.0-32.0 [facility] Chloride assayOrdered By: St rupesh Mckeon on 09-11-2024 Chloride [Moles/Vol] 103 mmol/L 98-[address] [facility] Discharge Instructionon 07-0 Discharge Instruction [facility] Medical Records Department [address] [place] [address] Instructions for Home/Discharge Instructions 09/11/24 0846 MR#: [id number] Acct: [id number] Name: ELOISA TSANG SUE Rep #: [id number] : 1950 74 From: Naty LEAHY PCP: Dr. Christopher Ranney, MD Status:ADM MARISOL Discharge Instructions Diet Discharge Diet: No restrictions DC O2, CPAP, BIPAP needs Home O2 Discharge instructions: No Dressing / Incision Discharge Activity: - (Use UltraSling at all times. No use of operative shoulder for 2 weeks postoperatively. Okay to take sling off to work on elbow range of motion and pendulum exercises 2-3 times daily. Physical therapy will start after 2-week follow-up appointment.) Weight Bearing Status: No weight bearing (On right shoulder.) Dressing / Incision Call your doctor if your incision/area has: Continuous Slow Oozing, Sudden Increased Bleeding, Increased Pain/ Swelling, Increased Redness, Foul Smelling Discharge and Swelling at the incision site Call your doctor if you observe: Fever of 101 or Higher, Coldness, Increased Pain, Numbness or Tingling, Change in Color, Inability to urinate, Inability to have a bowel movement, Using more than 1 pad per hour, Shortness of breath, Dizziness, Fainting spells, Swelling in the ankles, Chest pain, Increased palpitations (irregular heartbeat), Calf discomfort and Uncontrolled pain Remove Dressing in: 5 days (Patient can remove dressing on postoperative day 5. Steri-Strips are present under the dressing and patient was educated to leave Steri-Strips alone and allow them to fall off on their own.) Cleanse incision/area with: Soap Water Additional Dressing/Incision Instructions:: No soaking, submerging of incision for 6 weeks postoperatively. No lotions, salves, oils over incisions for 6 weeks postoperatively. OARRS report was checked and reviewed in office today. Follow Up Care Test Results: Test results from this visit will be discussed in further detail at your follow-up appointment, if applicable. Discharge Plan Admission Admit Date/Time: 09/10/24 07:32 Attending Provider: Corey Mckeon Primary Care Provider: Teodoro Farias Consulting Providers: Lisbeth Lopez Discharge Orders/Prescriptions Prescriptions: New acetaminophen 500 mg Tablet 1,000 mg PO Q8H Qty: 0 0RF aspirin 81 mg capsule 81 mg PO BID 30 Days Qty: 60 0RF famotidine 20 mg Tablet 20 mg PO DAILY 30 Days Qty: 30 0RF oxycodone 5 mg Tablet 5 - 10 mg PO Q4H PRN PRN (Reason: As needed for pain) 7 Days Qty: 42 0RF Continued omeprazole 40 mg capsule,delayed release(DR/EC) 40 mg PO DAILY losartan 100 mg tablet 100 mg PO DAILY metformin 500 mg tablet extended release 24 hr 500 mg PO BID calcium carbonate-vitamin D3 [Calcium 600 with Vitamin D3] 600 mg-12.5 mcg (500 unit) capsule 1 cap PO BID pramipexole 0.5 MG tablet 0.5 mg PO BID [id number] -minerals Tablet 1 tab PO DAILY citalopram 20 mg tablet 20 mg PO QHS levothyroxine 125 mcg tablet 125 mcg PO MOTUWETHFRSA ferrous sulfate [Feosol] 325 mg (65 mg iron) tablet 325 mg PO QDAY ascorbic acid (vitamin C) 500 mg capsule 500 mg PO DAILY levothyroxine 125 mcg capsule 62.5 mcg PO DAILY atorvastatin 80 mg tablet 80 mg PO QHS Qty: 90 3RF carvedilol 12.5 mg tablet 12.5 mg PO BID Qty: 180 3RF clopidogrel 75 mg tablet 75 mg PO DAILY Qty: 90 3RF spironolactone 25 mg tablet 25 mg PO DAILY Qty: 30 6RF Held aspirin 81 mg Tablet,Delayed Release (Dr/Ec) 81 mg PO DAILY@0800 Qty: 0 0RF Hold Instructions: Resume on 09/11/24. No Action acetaminophen 500 MG tablet 500 mg PO BID PRN PRN (Reason: Pain Or Fever) Other Ambulatory Orders: 12 Lead EKG (Routine) Timeframe: [id number] Location: None Selected Ordered By: Dr. Corey Mckeon CBC W/Diff, Automated (Routine) Timeframe: 1 Week Facility: [facility] - Location: Laboratory Ordered By: Naty Calvo Referrals / Follow Up: Teodoro Farias MD [Primary Care Provider] - Disposition Disposition (needs filled in before D/C Order can be placed): Home, Self Care 09/11/24 0901 Naty Calvo PA CC: Dr. Lisbeth Lopez MD; Dr. Teodoro Farias MD Signed Normal [facility] Erythrocyte distribution wid th ratioOrdered By: Corey Mckeon on 09-11-2024 Erythrocyte distribution width (RBC) [Ratio] 14.6 % 11.6-14.6 [facility] Erythrocyte distribution wid th standard deviationOrdered By: Corey Mckeon on 09-11-2024 Erythrocyte distribution width (RBC) [Ratio] 48.1 fl High 35.1-43.9 [facility] Glomerular filtration rate ( GFR) estimation/1.73 sq m using serum, plasma, or whole bOrdered By: Corey Mckeon on 09-11-2024 GFR/1.73 sq M.predicted among non-blacks MDRD (S/P/Bld) [Vol rate/Area] 63 mL/min/{1.73_m2} >60 [facility] Comment on above: mL/min/1.73m2 CKD-EP I Creatinine Equation (2020) [facility] deOrdered By: Corey Mckeon on 09-11-2024 Glucose [Mass/Vol] 167 mg/dL High 74-106 [facility] Comment on above: MANAGEMENT OF PATIEN T CARE PER NURSING PROTOCOL Hematocrit Auto (Bld) [Volum e fraction]Ordered By: Corey Mckeon on 09-11-2024 Hematocrit (Bld) [Volume fraction] 31.8 % Low 37-47 [facility] Hemoglobin measurementOrdere d By: Corey Mckeon on 09-11-2024 Hemoglobin (Bld) [Mass/Vol] 10.6 g/dL Low 12.0-15.0 [facility] MCV (mean corpuscular volume ) determinationOrdered By: Corey Mckeon on 09-11-2024 MCV (RBC) [Entitic vol] 90.6 fL 81-99 [facility] Mean corpuscular hemoglobin (MCH) determinationOrdered By: Corey Mckeon on 09-11-2024 MCH (RBC) [Entitic mass] 30.2 pg 27.0-32.0 [facility] Mean corpuscular hemoglobin concentration (MCHC) determinationOrdered By: Corey Mckeon on 09-11-2024 MCHC (RBC) [Mass/Vol] 33.3 g/dL 32-36 [facility] Mean platelet volume determi nationOrdered By: Corye Mckeon on 09-11-2024 Platelet mean volume (Bld) [Entitic vol] 9.8 fL 6.2-12.0 [facility] Platelet countOrdered By: St rupesh Mckeon on 09-11-2024 Platelets (Bld) [#/Vol] 239 10*3/uL 150-450 [facility] Potassium measurement (mass/ volume)Ordered By: Corey Mckeon on 09-11-2024 Potassium (Unsp spec) [Mass/Vol] 4.3 mmol/L 3.3-5.1 [facility] RBC Auto (Bld) [#/Vol]Ordere d By: Corey Mckeon on 09-11-2024 RBC (Bld) [#/Vol] 3.51 10*6/uL Low 4.2-5.4 [facility] Serum creatinine measurement (mass/volume)Ordered By: Corey Mckeon on 09-11-2024 Creatinine [Mass/Vol] 0.96 mg/dL 0.70-1.20 [facility] Serum glucose measurement (m ass/volume)Ordered By: Corey Mckeon on 09-11-2024 Glucose [Mass/Vol] 184 mg/dL High 70-99 [facility] Serum or plasma calcium peng urement (mass/volume)Ordered By: Corey Mckeon on 09-11-2024 Calcium [Mass/Vol] 8.9 mg/dL 7.6-11.0 [facility] Serum or plasma urea nitroge n measurement (mass/volume)Ordered By: Corey Mckeon on 09-11-2024 Urea nitrogen [Mass/Vol] 18 mg/dL 4-19 [facility] Sodium levelOrdered By: Baljit Mckeon on 09-11-2024 Sodium [Moles/Vol] 137 mmol/L 133-145 [facility] White blood cell (WBC) count Ordered By: Corey Mckeon on 09-11-2024 WBC (Bld) [#/Vol] 15.4 10*3/uL High 4.4-11.0 [facility] Bedside Glucoseon 09-10-2024 FINGERSTICK GLU 181 mg/dL High 74-106 [facility] Comment on above: Result Comment: GURVINDER GEMENT OF PATIENT CARE PER NURSING PROTOCOL Performed By: #### L 501.9985, L501.9520 #### [facility] Laboratory [address] [place], [address] FINGERSTICK GLU 156 mg/dL High 74-106 [facility] Comment on above: Result Comment: GURVINDER GEMENT OF PATIENT CARE PER NURSING PROTOCOL Performed By: #### L 100.0500, L500.2500 #### [facility] [address] [place], [address] FINGERSTICK GLU 122 mg/dL High 74-106 [facility] Comment on above: Result Comment: GURVINDER GEMENT OF PATIENT CARE PER NURSING PROTOCOL Performed By: #### L 501.4700, L500.4100, L500.4050 #### [facility] Laboratory [address] [place], [address] Consultation - [facility]iston 09-10-2024 Consultation - Hospitalist [facility] Medical Records Department [address] [facility] [place] [address] Consultation - Hospitalist 09/10/24 1607 MR#: [id number] Acct: [id number] Name: ELOISA TSANG SUE Rep #: [id number] : 1950 74 From: Regina Sawyer MD PCP: Dr. Teodoro Farias MD Status:ADM IN Location: [place] [address]-1 Assessment Plan Assessment/Plan (1) Type 2 diabetes mellitus: (2) Stented coronary artery: PLAN: Plan #Hx of CAD -w/ previous stenting -Continue home atorvastatin, beta-richie, resume aspirin and Plavix when okay to do so by primary team #Hypothyroidism -Continue Synthroid #Type 2 diabetes mellitus -Glucose checks and sliding scale insulin - Hold home oral hypoglycemics until discharge #Hypertension - Continue carvedilol, hold losartan and spironolactone to allow room for pain control, add back as tolerated #GERD -Continue PPI #Depression/anxiety -Continue home medications # Restless leg syndrome -continue patient's home medication regimen # Right primary osteoarthritis with glenoid erosion - Status post right reverse total shoulder replacement with Dr. Mckeon 09/10/2024 - PT/OT - Management/pain management per primary #DVT ppx: Timing and agent at the discretion of primary team Regina Sawyer MD Time spent in the patient's overall evaluation, decision-making process, review of diagnostic data, adjustment of management, discussion with other providers, nursing and ancillary staff involved in patient's care documentation, 15 Minutes HPI Consult Data Date of Consult: 09/10/24 HPI Narrative Reason for Consultation: Postop medical management HPI Narrative: ELOISA TSANG, is a 74 F with a history of coronary artery disease with stenting, hypothyroidism, diffuse, depression, GERD, restless leg syndrome who presented [facility] ED 09/10/2024 for right shoulder primary osteoarthritis with operative management of right reverse total shoulder replacement. Hospitalist consulted for postop medical management. Patient evaluated bedside, reports there is a little bit sore is causing her low bit of a cough but no shoulder pain no other acute complaints [facility] Medical History Wears glasses Arthritis Low iron Restless legs Gastric reflux Non-smoker Shortness of breath on exertion History of echocardiogram History of stress test History of Holter monitoring Cardiology follow-up encounter History of heart attack Ischemic cardiomyopathy Atherosclerosis of coronary artery of [place] heart without angina pectoris Stage 3b chronic [...] Home Medications ???Medication ???Instructions ???Recorded ???Last Taken ???Type pramipexole 0.5 mg tablet 0.5 mg PO BID restless legs 05/16/17 07:30 History 0.5 MG acetaminophen 500 mg tablet 500 mg PO BID PRN PRN Pain Or Feve r 08/14/19 Unknown History citalopram 20 mg tablet 20 mg PO QHS depression 03/10/23 U nknown History levothyroxine 125 mcg tablet 125 mcg PO MOTUWETHFRSA thyroid 09/10/24 06:30 History aspirin 81 mg tablet,delayed 81 mg PO DAILY@0800 #0 tabs 09/10/24 06:30 Rx release losartan 100 mg tablet 100 mg PO DAILY 04/05/23 09/10/24 06:30 History metformin 500 mg tablet,extended 500 mg PO BID 04/05/23 Unknown His tory release 24 hr omeprazole 40 mg capsule,delayed 40 mg PO DAILY 04/05/23 09/10/24 0 6:30 History release calcium 600 mg (as 1 cap PO BID 07/04/23 Unknown Hist ory carbonate)-vitamin D3 12.5 mcg (500 unit) capsule (Calcium with Vit D3) [id number] -minerals 1 tab PO DAILY vitamin 07/04/23 Un known History atorvastatin 80 mg tablet 80 mg PO QHS #90 tabs 01/23/24 Unk nown Rx carvedilol 12.5 mg tablet 12.5 mg PO BID #180 tabs 03/26/24 09/10/24 06:30 Rx clopidogrel 75 mg tablet 75 mg PO DAILY #90 tabs 03/26/24 0 09/05/24 Rx spironolactone 25 mg tablet 25 mg PO DAILY #30 tabs 06/29/24 U nknown Rx ascorbic acid (vitamin C) 500 mg 500 mg PO DAILY SUPPLEMENT 5 Unknown History capsule ferrous sulfate 325 mg (65 mg 325 mg PO QDAY 08/13/24 Unknown Hi story iron) tablet (Feosol) levothyroxine 125 mcg capsule 62.5 mcg PO DAILY BAXTER 08/13/24 Unkn own History Allergy/AdvReac Type Severity Reaction Status Date / Time Penicillins (PCN) Allergy Severe Hives Verified 08/13/24 13:0 (more content not included)... Normal [facility] Decalcification bone/plaqueo n 09-10-2024 Decalcification bone/plaque Patient Age/Sex Location Account Attending Physician ELOISA TSANG SUE 74/F MS3 [id number] Dr. Corey Mckeon MD Specimen: [id number] Received: 09/10/24 Status: MEET Tony Num: [id number] Spec Type: HUMERUS Subm Dr: Dr. Corey Mckeon MD HEADER OPERATION: ERAS, total shoulder replacement, reverse PRE-OP DIAGNOSIS: Bone on bone arthritis, right shoulder, large bone spur and loose body inferior pouch of shoulder, bony wear on socket with posterior subluxation TISSUE SUBMITTED: A- Humeral head, bone and tissue, right shoulder MICROSCOPIC DIAGNOSIS A. Right humerus, head, total shoulder arthroplasty: - Articular bone with osteoarthritic reactive/degenerativ e changes. MICROSCOPIC DESCRIPTION Slides are reviewed. GROSS DESCRIPTION A. Received in formalin labeled with the patient's name and date of . Designated as humeral head and tissue-right shoulder is a 5.3 x 4.9 x 1.7 cm humeral head and 3 clarke-white loose bodies, 1.5 x 1.0 x 0.9 cm to 2.2 x 1.8 x 1.1 cm. The articular cartilage of the humeral head is clarke-red and granular with eburnation and peripheral osteophyte formation. Sections of the humeral head are submitted in 1 cassette, following decalcification. MT 09/10/2024 CPT:[id number] Patient Age/Sex Location Account Attending Physician ELOISA TSANG 74/F MS3 [id number] Dr. Corey Mckeon MD Signed (signature on file) Dr. Jennifer Law MD 09/17/24 1258 Normal [facility] Comment on above: Performed By: #### L 501.4700, L500.4100, L500.4050 #### [facility] Laboratory [facility] [address] [place], [place], [address] /POSTOP.ANEon 09-10-2024 MR/POSTOP.ANE [facility] Medical Records Department [address] [place] [address] Anesthesia Postop Eval I 09/10/24 1322 MR#: [id number] Acct: [id number] Name: ELOISA TSANG SUE Rep #: [id number] : 1950 74 From: Alexy Jo CRNA PCP: Dr. Teodoro Farias MD Status:REG SD Y Race: C Location: [place] [address] Anesthesia: Postop Eval I Current Vital Signs Temperature: 36.8 F Pulse Rate: 78 Blood Pressure: 150/80 Respiratory Rate: 18 Pulse Ox: 98 Oxygen Delivery Method: Room Air Assessment Airway patent: Yes Spontaneous unlabored respirations: Yes Mental status: Awake nausea: No Vomiting: No Anesthesia Complication: No Fluid Hydration Crystalloid volume administer (ml): 1,500 Total IV fluid infused: 1,500 Progress Note Anesthesia document: Postop Eval 1 completed: Yes 09/10/24 1323 Date Alexy Wilkinson Signature: Date CC: Signed Normal [facility] MR/[id number] 09-10-2024 [facility] Medical Records Department [address] [place] [address] Anesthesia Postop Eval II 09/10/24 1510 MR#: [id number] Acct: [id number] Name: ELOISA TSANG SUE Rep #: [id number] : 1950 74 From: Bjorn Davis MD PCP: Dr. Teodoro Farias MD Status:REG SDC Y Race: C Location: [place] [address] Anesthesia Postop Eval I Sum Postop Eval Completion status Anesthesia document: Postop Eval 1 completed: Yes Anesthesia Postop Eval I Summary Anesthesia Postop Eval I Summary: Anesthesia Postop Eval I: Assessment Summary Airway patent Yes 09/10/24 13:23 ASSISTANT AT SURGERY.JCLI Spontaneous unlabored Yes 09/10/24 13:23 ASSISTANT AT SURGERY.JCLI respirations Mental status Awake 09/10/24 13:23 ASSISTANT AT SURGERY.JCLI nausea No 09/10/24 13:23 ASSISTANT AT SURGERY.JCLI Vomiting No 09/10/24 13:23 ASSISTANT AT SURGERY.JCLI Anesthesia Postop Eval I: Fluid Summary Crystalloid volume administer 1,500 09/10/24 13:23 ASSISTANT AT SURGERY.JCLI (ml) Colloids volume administered ( ml) Blood Product volume administered (ml) Total IV fluid infused 1,500 09/10/24 13:23 ASSISTANT AT SURGERY.JCLI Anesthesia Postop Eval I: Summary Notes Anesthesia Complication No 09/10/24 13:23 ASSISTANT AT SURGERY.JCLI Anesthesia Complication Comment: Post-operative progress note Anesthesia: Postop Eval II Evaluation Mental status: Awake and Calm Pain Level: 1 nausea: No Vomiting: No 09/10/24 1510 Date Bjorn Wilkinson Signature: Date CC: Signed Normal [facility] Operative Reporton 5 Operative Report [facility] Medical Records Department [address] [place] [address] Operative Report 09/10/24 1210 MR#: [id number] Acct: [id number] Name: ELOISA TSANG SUE Rep #: [id number] : 1950 74 From: Corey Mckeon MD PCP: Dr. Teodoro Farias MD Status:[facility] Location: [place] [address] 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 total shoulder replacement furniture sprayer: Yes Disabilities Services Officer: Naty Calvo Tasks completed by machinist first class: Other (See body of operative report) Additional tiler's assistant?: No Type of Anesthesia: General RN Documented Start/Stop Times: Operation Date: 09/10/24 10:30 Case Time Into Pre-Op 09/10/24 08:23 Anesthesia Start 09/10/24 10:47 Into Room 09/10/24 10:47 Procedure Start 09/10/24 11:24 Procedure End 09/10/24 13:09 Out of Room 09/10/24 13:17 Anesthesia End 09/10/24 13:18 Into Recovery 09/10/24 13:20 Procedure Start Time: 11:24 Procedure Stop Time: 13:09 Select all DRAINS/GRAFTS/IMPLAN TS that apply: Prosthetic device Prosthetic device details: See body of operative report Special Medications: Ancef, vancomycin, 2 g TXA lavage Estimated Blood Loss: 250 mL Fluids Replaced: 1200 mL crystalloid Specimen collected: Yes Description of specimen(s) removed: Bony cuts Description of surgery: Components used 1. Tournier perform glenoid 25 mm, +3 mm baseplate 2. Tournier perform 36 mm, 0 mm Glenosphere 3. Tournier perform 36 mm, 0 mm humeral liner retentive 4. Tournier perform humeral stem primary press-fit 3 size Brief history/Operative indications: 74 yo f with history of R shoulder pain and cuff tear arthropathy. Patient failed conservative measures as mentioned in the H P. After discussion of risk and benefits of reverse total shoulder replacement including but not limited to blood loss, DVTs, PEs, nerve vessel damage, infection, general risk of anesthesia including loss of life, instability and stiffness patient demonstrating understanding wish to proceed was able to sign informed consent. Medical clearance was obtained. Procedure: On the date of the procedure, patient's R upper extremity was marked in the preoperative area. Patient was taken back to the operating room where they were placed on the table in the supine position. Anesthesia assumed control of the C-spine and airway, then administered anesthetic. All bony prominences were identified well-padded, the head was secured and the patient was placed in the beachchair position at about 35??? inclination. Anesthesia remained in control of the C-spine airway throughout the remainder of the procedure. Patient was then appropriately fastened to the table and the R upper extremity was prepped in a sterile fashion. The surgeons then scrubbed. Upon reentering the room, the R upper extremity was draped in a sterile fashion and the incision was marked out. Timeout was called, everyone agreed upon the side, the site, the procedure to be performed, patient identity and antibiotics given. Incision was taken down through skin and subcutaneous tissue, fat down to fascia. The stripe of the deltopectoral interval and cephalic vein were identified and blunt dissection was used to retract the deltoid. The cephalic vein was retracted laterally. Clavipectoral fascia was then incised and a cobra retractor was placed in the wound. The proximal one third of the pectoralis major insertion was released. Pectoralis tendon insertion was used to tenodesed the biceps tendon which was identified in the bicipital groove. Tenodesis was done with #1 Vicryl. Proximally we followed the biceps tendon after transecting it into the rotator interval. The rotator interval was split and the arm was externally rotated. The split was 1 cm medial to the bicipital groove. Subscapularis tendon was released. We released down the anterior portion of the humeral head and a prajapati elevator was used to release the inferior portion of the humeral head. The arm was externally rotated and the shoulder was dislocated. The humeral head was then cut at its natural retroversion. Once his humeral head cut was made humerus was retracted out of the way and the glenoid was exposed. After exposing the glenoid, the labrum and the remaining proximal biceps were debrided. At this time we are able to view the entire outer edge of the glenoid. A central pin was placed we sequentially reamed over this central pin to 25mm. Once this was completed the central screw was measured and found to be. The glenoid baseplate was screwed into place. Wound was closely irrigated out with normal saline we then drilled sequentially for 2 screws. Screw (more content not included)... Normal [facility] Shoulder min 2 Viewson 09-10 Shoulder min 2 Views [facility] Imaging Services [address] [place], [place] [id number] Shoulder min 2 Views MR#: [id number] Acct: [id number] Name: TRINHELOISA SUE Rep #: [id number] : 1950 F 74 From: Lonre Coppola DO PCP: Dr. Teodoro Farias MD Status: REG SDC Study: Shoulder min 2 Views Date of Exam: 09/10/24 Exam# [id number] Ordering Dr: Corey Mckeon MD PROCEDURE: SHOULDER MIN 2 VIEWS 09/10/2024 REASON FOR EXAM: POST OP X-RAY Right shoulder status post total reverse arthroplasty TECHNIQUE: SHOULDER MIN 2 VIEWS COMPARISON: None. FINDINGS: Bones: Normal mineralization hardware is well-positioned, intact and without obvious complication. Soft tissues: Unremarkable Other: RAD/Shoulder min 2 Views IMPRESSION: Status post total reverse shoulder arthroplasty with well-positioned hardware without obvious complication. Reading Location: [facility] CC: Dr. Teodoro Farias MD; Dr. Corey Mckeon MD Manager Requirements: Signed Normal [facility] Extremity Upper without Cont raon 08-20-2024 Extremity Upper without Contra [facility] Imaging Services [address] [place] [id number] Extremity Upper without Contra MR#: [id number] Acct: [id number] Name: ELOISA TSANG Rep #: [id number] : 1950 F 74 From: Robert Sol MD PCP: Dr. Teodoro Farias MD Status: REG CLI Study: Extremity Upper without Contra Date of Exam: 0 08/20/24 Exam# [id number] Ordering Dr: Corey Mckeon MD PROCEDURE: EXTREMITY [...] 3 acromion with impingement configuration. Reading Location: [facility] CC: Dr. Teodoro Farias MD; Dr. Corey Mckeon MD Manager Requirements: Signed Normal [facility] Electrocardiogram reportOrde red By: Ernesto Tovar on 08-17-2024 EKG study [facility] Cardi[facility] Services [address] [place] [address] 12 Lead EKG 08/16/24 1233 MR#: [id number] Acct: [id number] Name: ELOISA TSANG Rep #:[id number] : 1950 74 From: Ernesto gomez MD Attending Dr: Dr. Corey Mckeon MD Status: PRE SDC Ordering Dr: Corey Mckeon MD Date: 0 08/16/24 [place] [facility] [place] F C Admitted: Test Reason : [...] block Abnormal ECG Confirmed by Ernesto Tovar ([id number]), writer editor OLIVIA PEREIRA ([id number]) on 56:44:42 AM Referred By: Corey Mckeon Confirmed By: Ernesto Tovar 08/17/24 0644 Date _ Ernesto Tovar MD CC: Dr. Teodoro Farias MD; Dr. Corey Mckeon MD ~ Signed [facility] Work Phone: MRSA/SAID NASAL SCREENon MRSA+SAID SCRN Reason for Exam: PREOP MRSA MRSA Negative S. AUREUS S. aureus Negative Normal [facility] Comment on above: Performed By: #### L 501.4700, L500.4100, L500.4050 #### [facility] Laboratory [address] [place], [address] 12 Lead EKGon 08-16-2024 12 Lead EKG [facility] Services [address] [place] [address] 12 Lead EKG 08/16/24 1233 MR#: [id number] Acct: [id number] Name: ELOISA TSANG Rep #: [id number] : 1950 74 From: Ernesto Tovar MD Attending Dr: Dr. Corey Mckeon MD Status: PRE AKC Ordering Dr: Corey Mckeon MD Date: 08/16/24 [place] [facility] [place] F C Admitted: Test Reason : [...] Abnormal ECG Confirmed by Ernesto Tovar ([id number]), writer editor OLIVIA PEREIRA ([id number]) on 08/17/2024 6:44:42 AM Referred By: Corey Mckeon Confirmed By: Ernesto Tovar 08/17/24 0644 Date Ernesto Tovar MD CC: Dr. Teodoro Farias MD; Dr. Corey Mckeon MD Signed Normal [facility] Absolute lymphocyte countOrd ered By: Corey Mckeon on 08-16-2024 Lymphocytes Auto (Unsp spec) [#/Vol] 1.42 10*3/uL 0.83-4.51 [facility] Absolute neutrophil countOrd ered By: Corey Mckeon on 08-16-2024 Neutrophils (Bld) [#/Vol] 7.4 10*3/uL 2.0-7.7 [facility] Albumin, Serumon 08-16-2024 Albumin [Mass/Vol] 4.3 g/dL Normal 3.4-4.8 [facility] Comment on above: Performed By: #### L 501.5200, L500.2500, L100.0100, M100.651, L501.1800 #### [facility] Laboratory [address] [place], [address] Automated lymphocyte count a s percentage of total leukocytesOrdered By: Corey Mckeon on 08-16-2024 Lymphocytes/100 WBC Auto (Unsp spec) 14.9 % Low 19-41 [facility] Basic Metabolic Profile (BMP )on 08-16-2024 BUN/CRE 20.1 RATIO High 10-20 [facility] Comment on above: Performed By: #### L 501.5200, L500.2500, L100.0100, M100.651, L501.1800 #### [facility] Laboratory [address] [place], [address] Calcium [Mass/Vol] 9.3 mg/dL Normal 7.6-11.0 [facility] Comment on above: Performed By: #### L 501.5200, L500.2500, L100.0100, M100.651, L501.1800 #### [facility] Laboratory [address] [place], [address] Chloride [Moles/Vol] 101 mmol/L Normal 98-[address] [facility] Comment on above: Performed By: #### L 501.5200, L500.2500, L100.0100, M100.651, L501.1800 #### [facility] Laboratory [address] [place], [address] CO2 [Moles/Vol] 22.1 mmol/L Normal 21.0-32.0 [facility] Comment on above: Performed By: #### L 501.5200, L500.2500, L100.0100, M100.651, L501.1800 #### [facility] Laboratory [address] [place], [address] Creatinine [Mass/Vol] 0.92 mg/dL Normal 0.70-1.20 [facility] Comment on above: Performed By: #### L 501.5200, L500.2500, L100.0100, M100.651, L501.1800 #### [facility] Laboratory [address] [place], [address] GAP 14 Normal 5-15 [facility] Comment on above: Performed By: #### L 501.5200, L500.2500, L100.0100, M100.651, L501.1800 #### [facility] Laboratory [address] [place], [address] GFR/1.73 sq M.predicted among non-blacks MDRD (S/P/Bld) [Vol rate/Area] 66 mL/min/{1.73_m2} Normal >60 [facility] Comment on above: Result Comment: mL/m in/1.73m2 CKD-EPI Creatinine Equation (2020) Performed By: #### L 501.5200, L500.2500, L100.0100, M100.651, L501.1800 #### [facility] Laboratory [address] [place], [address] Glucose [Mass/Vol] 182 mg/dL High 70-99 [facility] Comment on above: Performed By: #### L 501.5200, L500.2500, L100.0100, M100.651, L501.1800 #### [facility] Laboratory [address] [place], [address] Potassium [Moles/Vol] 4.4 mmol/L Normal 3.3-5.1 [facility] Comment on above: Performed By: #### L 501.5200, L500.2500, L100.0100, M100.651, L501.1800 #### [facility] Laboratory [address] [place], [address] Sodium [Moles/Vol] 138 mmol/L Normal 133-145 [facility] Comment on above: Performed By: #### L 501.5200, L500.2500, L100.0100, M100.651, L501.1800 #### [facility] Laboratory [address] [place], [address] Urea nitrogen [Mass/Vol] 19 mg/dL Normal 4-19 [facility] Comment on above: Performed By: #### L 501.5200, L500.2500, L100.0100, M100.651, L501.1800 #### [facility] Laboratory [address] [place], [address] Basophil percentageOrdered B y: Corey Mckeon on 08-16-2024 Basophils/100 WBC (Bld) 0.4 % 0-1 [facility] CBC W/Diff, Automatedon 08-05 Absolute Lymph 1.42 X10 3/uL Normal 0.83-4.51 [facility] Comment on above: Performed By: #### L 501.5200, L500.2500, L100.0100, M100.651, L501.1800 #### [facility] Laboratory [address] [place], [address] Absolute Neut 7.4 X10 3/uL Normal 2.0-7.7 [facility] Comment on above: Performed By: #### L 501.5200, L500.2500, L100.0100, M100.651, L501.1800 #### [facility] Laboratory [address] [place], [address] Basophils/100 WBC (Bld) 0.4 % Normal 0-1 [facility] Comment on above: Performed By: #### L 501.5200, L500.2500, L100.0100, M100.651, L501.1800 #### [facility] Laboratory [address] [place], [address] Eosinophils/100 WBC (Bld) 0.9 % Normal 0-5 [facility] Comment on above: Performed By: #### L 501.5200, L500.2500, L100.0100, M100.651, L501.1800 #### [facility] Laboratory [address] [place], [address] Erythrocyte distribution width (RBC) [Ratio] 14.3 % Normal 11.6-14.6 [facility] Comment on above: Performed By: #### L 501.5200, L500.2500, L100.0100, M100.651, L501.1800 #### [facility] Laboratory [address] [place], [address] Hematocrit (Bld) [Volume fraction] 36.0 % Low 37-47 [facility] Comment on above: Performed By: #### L 501.5200, L500.2500, L100.0100, M100.651, L501.1800 #### [facility] Laboratory [address] [place], [address] Hemoglobin (Bld) [Mass/Vol] 11.8 g/dL Low 12.0-15.0 [facility] Comment on above: Performed By: #### L 501.5200, L500.2500, L100.0100, M100.651, L501.1800 #### [facility] Laboratory [address] [place], [address] IG% 0.300 Normal 0.0-0.9 [facility] Comment on above: Result Comment: IG% - Immature Granulocytes (promyelocytes, myelocytes and metamyelocytes) > 1% indicates that a LEFT SHIFT is Present. Performed By: #### L 501.5200, L500.2500, L100.0100, M100.651, L501.1800 #### [facility] Laboratory [address] [place], [address] Lymphocytes/100 WBC (Bld) 14.9 % Low 19-41 [facility] Comment on above: Performed By: #### L 501.5200, L500.2500, L100.0100, M100.651, L501.1800 #### [facility] Laboratory [address] [place], [address] MCH (RBC) [Entitic mass] 30.0 pg Normal 27.0-32.0 [facility] Comment on above: Performed By: #### L 501.5200, L500.2500, L100.0100, M100.651, L501.1800 #### [facility] Laboratory [address] [place], [address] MCHC (RBC) [Mass/Vol] 32.8 g/dL Normal 32-36 [facility] Comment on above: Performed By: #### L 501.5200, L500.2500, L100.0100, M100.651, L501.1800 #### [facility] Laboratory [address] [place], [address] MCV (RBC) [Entitic vol] 91.6 fL Normal 81-99 [facility] Comment on above: Performed By: #### L 501.5200, L500.2500, L100.0100, M100.651, L501.1800 #### [facility] Laboratory [address] [place], [address] Monocytes/100 WBC (Bld) 5.4 % Normal 0-10 [facility] Comment on above: Performed By: #### L 501.5200, L500.2500, L100.0100, M100.651, L501.1800 #### [facility] Laboratory [address] [place], [address] Neutrophils/100 WBC (Bld) 78.1 % High 47-70 [facility] Comment on above: Performed By: #### L 501.5200, L500.2500, L100.0100, M100.651, L501.1800 #### [facility] Laboratory [address] [place], [address] Nucleated RBC (Bld) [#/Vol] 0 10*3/uL Normal 0-5 [facility] Comment on above: Performed By: #### L 501.5200, L500.2500, L100.0100, M100.651, L501.1800 #### [facility] Laboratory [address] [place], [address] Platelet mean volume (Bld) [Entitic vol] 10.1 fL Normal 6.2-12.0 [facility] Comment on above: Performed By: #### L 501.5200, L500.2500, L100.0100, M100.651, L501.1800 #### [facility] Laboratory [address] [place], [address] Platelets (Bld) [#/Vol] 295 10*3/uL Normal 150-450 [facility] Comment on above: Performed By: #### L 501.5200, L500.2500, L100.0100, M100.651, L501.1800 #### [facility] Laboratory [address] [place], [address] RBC (Bld) [#/Vol] 3.93 10*6/uL Low 4.2-5.4 [facility] Comment on above: Performed By: #### L 501.5200, L500.2500, L100.0100, M100.651, L501.1800 #### [facility] Laboratory [address] [place], [address] RDW SD 48.1 fl High 35.1-43.9 [facility] Comment on above: Performed By: #### L 501.5200, L500.2500, L100.0100, M100.651, L501.1800 #### [facility] Laboratory [address] [place], [address] WBC (Bld) [#/Vol] 9.5 10*3/uL Normal 4.4-11.0 [facility] Comment on above: Performed By: #### L 501.5200, L500.2500, L100.0100, M100.651, L501.1800 #### [facility] Laboratory [address] [place], [address] Eosinophil percentageOrdered By: Corey Mckeon on 08-16-2024 Eosinophils/100 WBC (Bld) 0.9 % 0-5 [facility] Hemoglobin A1con 08-16-2024 HbA1c (Bld) [Mass fraction] 6.5 % High <=5.6 [facility] Comment on above: Result Comment: Norm al < 5.7 % Prediabetic 5.7 - 6.4 % Diabetic >or= 6.5 % Please note range changes. Performed By: #### L 501.9985, L501.9520 #### [facility] Laboratory [address] [place], [address] Hemoglobin A1c percentageOrd ered By: Bjorn Davis on 08-16-2024 HbA1c (Bld) [Mass fraction] 6.5 % High <5.7 [facility] Comment on above: Normal < 5.7 % Predi abetic 5.7 - 6.4 % Diabetic >or= 6.5 % Please note range changes. Immature granulocytes/100 WB C Auto (Bld)Ordered By: Corey Mckeon on 08-16-2024 Immature granulocytes/100 WBC (Bld) 0.300 % 0.0-0.9 [facility] Comment on above: IG% - Immature Granu locytes (promyelocytes, myelocytes and metamyelocytes) > 1% indicates that a LEFT SHIFT is Present. MR/PAT.Audrey 08-16-2024 MR/PAT.[facility] Medical Records Department [address] [place] [address] PAT - Anesthesia 08/16/24 1456 MR#: [id number] Acct: [id number] Name: ELOISA TSANG Rep #: [id number] : 1950 74 From: Bjorn Davis MD PCP: Dr. 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 Hx Hospitalization No 08/13/24 13:10 Any Problems [...] take am of surgery PONV PONV - 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: PONV - 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 Female Yes 08/13/24 13:10 HX of Motion [...] 06/05/24 14:25 Respiratory Assessment Respiratory Assessment - 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: Respiratory Tract Infection Hx - 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 Hx Respiratory Tract Infection No 08/13/24 13:10 STOP Sleep Apnea STOP Sleep Apnea - 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: STOP Sleep Apnea - 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 Hx Hypertension Yes: PER PT, CONTROLLED ON [...] Tobacco Use History Tobacco Use History - 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: Tobacco Use 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 Specify any problems Hx of Preganancy in last 3 No 08/13/24 13:10 Months Nurse Filling Out Transfusion SU 08/13/24 13:10 Questions: Date: 08/13/24 08/13/24 13:10 Time: 13:13 08/13/24 13:10 Patient unable to answer at this time (ie. 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 History (Updated 08/13/24 @ 13:23 by Lexei Gerardo) Wears glasses Arthritis Low iron Restless legs Gastric reflux Non-smoker Shortness of breath on exertion History of echocardiogram History of stress test History of Holter monitoring Cardiology follow-up encounter History of heart attack Ischemic cardiomyopathy Atherosclerosis of coronary artery of [place] heart without angina pectoris Stage 3b chronic [...] Taken ?? (more content not included)... Normal [facility] MRSA screenOrdered By: Royce Mckeon on 08-16-2024 MRSA DNA AMEENA+probe Ql (Unsp spec) [facility] Magnesiumon 08-16-2024 Magnesium [Mass/Vol] 1.6 mg/dL Normal 1.5-2.[address] [facility] Comment on above: Performed By: #### L 501.4700, L500.4100, L500.4050 #### [facility] Laboratory [address] [place] [address], [id number] Magnesium measurement (mass/ volume)Ordered By: Corey Mckeon on 08-16-2024 Magnesium (Unsp spec) [Mass/Vol] 1.6 mg/dL 1.5-2.2 [facility] Monocyte percentageOrdered B y: Corey Mckeon on 08-16-2024 Monocytes/100 WBC (Bld) 5.4 % 0-10 [facility] Neutrophil percentageOrdered By: Corey Mckeon on 08-16-2024 Neutrophils/100 WBC (Bld) 78.1 % High 47-70 [facility] Nucleated red blood cell per centageOrdered By: Corey Mckeon on 08-16-2024 Nucleated RBC/100 WBC (Bld) [Ratio] 0 % 0-5 [facility] Serum or plasma albumin peng urement (mass/volume)Ordered By: Corey Mckeon on 08-16-2024 Albumin [Mass/Vol] 4.3 g/dL 3.4-4.8 [facility] TSH DL <= 0.005 mIU/L QnOrde red By: Bjorn Davis on 08-16-2024 TSH Qn 1.440 uIU/mL 0.300-4.200 [facility] Thyroid Stim Hormone (TSH)on 08-16-2024 TSH 1.440 uIU/mL Normal 0.300-4.200 [facility] Comment on above: Performed By: #### L 501.9985, L501.9520 #### [facility] Laboratory [address] [place], [place], [id number] Absolute lymphocyte countOrd ered By: Teodoro Farias on 07-10-2024 Lymphocytes Auto (Unsp spec) [#/Vol] 1.41 10*3/uL 0.83-4.51 [facility] Absolute neutrophil countOrd ered By: Teodoro Farias on 07-10-2024 Neutrophils (Bld) [#/Vol] 7.1 10*3/uL 2.0-7.7 [facility] Anion gap in Serum or Plasma Ordered By: Teodoro Farias on 07-10-2024 Anion gap [Moles/Vol] 15 mmol/L 5-15 [facility] Automated lymphocyte count a s percentage of total leukocytesOrdered By: Teodoro Farias on 07-10-2024 Lymphocytes/100 WBC Auto (Unsp spec) 15.1 % Low 19-41 [facility] BUN/creatinine ratioOrdered By: Teodoro Farias on 07-10-2024 Urea nitrogen/Creatinine [Mass ratio] 23.2 mg/mg High 10-20 [facility] Basic Metabolic Profile (BMP )on 07-10-2024 BUN/CRE 23.2 RATIO High 10-20 [facility] Comment on above: Order Comment: PER P ATIENT DO NOT RUN LIPID PANEL DONE IN JUNEOrder Date: 04/12/24Order Info: [id number] - BMPOrder Info: [id number] - LIPIDOrder Info: [id number] - FEOrder Info: [id number] - TABITHA Performed By: #### L 501.4700, L500.4100, L500.4050 #### [facility] Laboratory [address] [place], [address] Calcium [Mass/Vol] 9.2 mg/dL Normal 7.6-11.0 [facility] Comment on above: Order Comment: PER P ATIENT DO NOT RUN LIPID PANEL DONE IN JUNEOrder Date: 04/12/24Order Info: [id number] - BMPOrder Info: - LIPIDOrder Info: [id number] - FEOrder Info: [id number] - TABITHA Performed By: #### L 501.4700, L500.4100, L500.4050 #### [facility] Laboratory [address] [place], [address] Chloride [Moles/Vol] 104 mmol/L Normal 98-[address] [facility] Comment on above: Order Comment: PER P ATIENT DO NOT RUN LIPID PANEL DONE IN JUNEOrder Date: 04/12/24Order Info: [id number] - BMPOrder Info: - LIPIDOrder Info: [id number] - FEOrder Info: [id number] - TABITHA Performed By: #### L 501.4700, L500.4100, L500.4050 #### [facility] Laboratory [address] [place], [address] CO2 [Moles/Vol] 18.9 mmol/L Low 21.0-32.0 [facility] Comment on above: Order Comment: PER P ATIENT DO NOT RUN LIPID PANEL DONE IN JUNEOrder Date: 04/12/24Order Info: [id number] - BMPOrder Info: - LIPIDOrder Info: [id number] - FEOrder Info: [id number] - TABITHA Performed By: #### L 501.4700, L500.4100, L500.4050 #### [facility] Laboratory [address] [place], [address] Creatinine [Mass/Vol] 0.96 mg/dL Normal 0.70-1.20 [facility] Comment on above: Order Comment: PER P ATIENT DO NOT RUN LIPID PANEL DONE IN JUNEOrder Date: 04/12/24Order Info: [id number] - BMPOrder Info: - LIPIDOrder Info: [id number] - FEOrder Info: [id number] - TABITHA Performed By: #### L 501.4700, L500.4100, L500.4050 #### [facility] Laboratory [address] [place], [address] GAP 15 Normal 5-15 [facility] Comment on above: Order Comment: PER P ATIENT DO NOT RUN LIPID PANEL DONE IN JUNEOrder Date: 04/12/24Order Info: [id number]- - BMPOrder Info: [id number] - LIPIDOrder Info: [id number] - FEOrder Info: [id number] - TABITHA Performed By: #### L 501.4700, L500.4100, L500.4050 #### [facility] Laboratory [address] [place], [address] GFR/1.73 sq M.predicted among non-blacks MDRD (S/P/Bld) [Vol rate/Area] 63 mL/min/{1.73_m2} Normal >60 [facility] Comment on above: Order Comment: PER P ATIENT DO NOT RUN LIPID PANEL DONE IN JUNEOrder Date: 04/12/24Order Info: [id number] - BMPOrder Info: - LIPIDOrder Info: [id number] - FEOrder Info: [id number] - TABITHA Result Comment: mL/m in/1.73m2 CKD-EPI Creatinine Equation (2020) Performed By: #### L 501.4700, L500.4100, L500.4050 #### [facility] Laboratory [address] [place], [address] Glucose [Mass/Vol] 154 mg/dL High 70-99 [facility] Comment on above: Order Comment: PER P ATIENT DO NOT RUN LIPID PANEL DONE IN JUNEOrder Date: 04/12/24Order Info: [id number] - BMPOrder Info: [id number] - LIPIDOrder Info: [id number] - FEOrder Info: [id number]- - TABITHA Performed By: #### L 501.4700, L500.4100, L500.4050 #### [facility] Laboratory [address] [place], [address] Potassium [Moles/Vol] 4.4 mmol/L Normal 3.3-5.1 [facility] Comment on above: Order Comment: PER P ATIENT DO NOT RUN LIPID PANEL DONE IN JUNEOrder Date: 04/12/24Order Info: [id number] - BMPOrder Info: [id number] - LIPIDOrder Info: [id number] - FEOrder Info: [id number] - TABITHA Performed By: #### L 501.4700, L500.4100, L500.4050 #### [facility] Laboratory [address] [place], [address] Sodium [Moles/Vol] 137 mmol/L Normal 133-145 [facility] Comment on above: Order Comment: PER P ATIENT DO NOT RUN LIPID PANEL DONE IN JUNEOrder Date: 04/12/24Order Info: [id number] - BMPOrder Info: - LIPIDOrder Info: [id number] - FEOrder Info: [id number] - TABITHA Performed By: #### L 501.4700, L500.4100, L500.4050 #### [facility] [address] [place], [address] Urea nitrogen [Mass/Vol] 22 mg/dL High 4-19 [facility] Comment on above: Order Comment: PER P ATIENT DO NOT RUN LIPID PANEL DONE IN JUNEOrder Date: 04/12/24Order Info: [id number] - BMPOrder Info: [id number] - LIPIDOrder Info: [id number] - FEOrder Info: [id number] - TABITHA Performed By: #### L 501.4700, L500.4100, L500.4050 #### [facility] Laboratory [address] [place], [address] Basophil percentageOrdered B y: Teodoro Farias on 07-10-2024 Basophils/100 WBC (Bld) 0.3 % 0-1 [facility] CBC W/Diff, Automatedon 05 Absolute Lymph 1.41 X10 3/uL Normal 0.83-4.51 [facility] Comment on above: Order Comment: Order Date: 04/12/24Order Info: [id number] - CBCD Performed By: #### L 501.4700, L500.4100, L500.4050 #### [facility] Laboratory [address] [place], [place], [address] Absolute Neut 7.1 X10 3/uL Normal 2.0-7.7 [facility] Comment on above: Order Comment: Order Date: 04/12/24Order Info: [id number] - CBCD Performed By: #### L 501.4700, L500.4100, L500.4050 #### [facility] [address] [place], [address] Basophils/100 WBC (Bld) 0.3 % Normal 0-1 [facility] Comment on above: Order Comment: Order Date: 04/12/24Order Info: [id number] - CBCD Performed By: #### L 501.4700, L500.4100, L500.4050 #### [facility] [address] [place], [address] Eosinophils/100 WBC (Bld) 0.9 % Normal 0-5 [facility] Comment on above: Order Comment: Order Date: 04/12/24Order Info: [id number] - CBCD Performed By: #### L 501.4700, L500.4100, L500.4050 #### [facility] [address] [place], [address] Erythrocyte distribution width (RBC) [Ratio] 13.9 % Normal 11.6-14.6 [facility] Comment on above: Order Comment: Order Date: 04/12/24Order Info: [id number] - CBCD Performed By: #### L 501.4700, L500.4100, L500.4050 #### [facility] [address] [place], [address] Hematocrit (Bld) [Volume fraction] 33.2 % Low 37-47 [facility] Comment on above: Order Comment: Order Date: 04/12/24Order Info: [id number] - CBCD Performed By: #### L 501.4700, L500.4100, L500.4050 #### [facility] [address] [place], [address] Hemoglobin (Bld) [Mass/Vol] 10.8 g/dL Low 12.0-15.0 [facility] Comment on above: Order Comment: Order Date: 04/12/24Order Info: 018- - CBCD Performed By: #### L 501.4700, L500.4100, L500.4050 #### [facility] [address] [place], [address] IG% 0.400 Normal 0.0-0.9 [facility] Comment on above: Order Comment: Order Date: 04/12/24Order Info: [id number]- - CBCD Result Comment: IG% - Immature Granulocytes (promyelocytes, myelocytes and metamyelocytes) > 1% indicates that a LEFT SHIFT is Present. Performed By: #### L 501.4700, L500.4100, L500.4050 #### [facility] [address] [place], [address] Lymphocytes/100 WBC (Bld) 15.1 % Low 19-41 [facility] Comment on above: Order Comment: Order Date: 04/12/24Order Info: 018- - CBCD Performed By: #### L 501.4700, L500.4100, L500.4050 #### [facility] [address] [place], [address] MCH (RBC) [Entitic mass] 29.7 pg Normal 27.0-32.0 [facility] Comment on above: Order Comment: Order Date: 04/12/24Order Info: 018- - CBCD Performed By: #### L 501.4700, L500.4100, L500.4050 #### [facility] [address] [place], [address] MCHC (RBC) [Mass/Vol] 32.5 g/dL Normal 32-36 [facility] Comment on above: Order Comment: Order Date: 04/12/24Order Info: [id number] - CBCD Performed By: #### L 501.4700, L500.4100, L500.4050 #### [facility] [address] [place], [address] MCV (RBC) [Entitic vol] 91.2 fL Normal 81-99 [facility] Comment on above: Order Comment: Order Date: 04/12/24Order Info: [id number] - CBCD Performed By: #### L 501.4700, L500.4100, L500.4050 #### [facility] [address] [place], [address] Monocytes/100 WBC (Bld) 7.0 % Normal 0-10 [facility] Comment on above: Order Comment: Order Date: 04/12/24Order Info: [id number]- - CBCD Performed By: #### L 501.4700, L500.4100, L500.4050 #### [facility] [address] [place], [address] Neutrophils/100 WBC (Bld) 76.3 % High 47-70 [facility] Comment on above: Order Comment: Order Date: 04/12/24Order Info: [id number] - CBCD Performed By: #### L 501.4700, L500.4100, L500.4050 #### [facility] [address] [place], [address] Nucleated RBC (Bld) [#/Vol] 0 10*3/uL Normal 0-5 [facility] Comment on above: Order Comment: Order Date: 04/12/24Order Info: [id number] - CBCD Performed By: #### L 501.4700, L500.4100, L500.4050 #### [facility] [address] [place], [address] Platelet mean volume (Bld) [Entitic vol] 10.0 fL Normal 6.2-12.0 [facility] Comment on above: Order Comment: Order Date: 04/12/24Order Info: [id number] - CBCD Performed By: #### L 501.4700, L500.4100, L500.4050 #### [facility] [address] [place], [address] Platelets (Bld) [#/Vol] 307 10*3/uL Normal 150-450 [facility] Comment on above: Order Comment: Order Date: 04/12/24Order Info: [id number] - CBCD Performed By: #### L 501.4700, L500.4100, L500.4050 #### [facility] [address] [place], [address] RBC (Bld) [#/Vol] 3.64 10*6/uL Low 4.2-5.4 [facility] Comment on above: Order Comment: Order Date: 04/12/24Order Info: [id number] - CBCD Performed By: #### L 501.4700, L500.4100, L500.4050 #### [facility] [address] [place], [address] RDW SD 46.5 fl High 35.1-43.9 [facility] Comment on above: Order Comment: Order Date: 04/12/24Order Info: [id number] - CBCD Performed By: #### L 501.4700, L500.4100, L500.4050 #### [facility] [address] [place], [address] WBC (Bld) [#/Vol] 9.3 10*3/uL Normal 4.4-11.0 [facility] Comment on above: Order Comment: Order Date: 04/12/24Order Info: [id number] - CBCD Performed By: #### L 501.4700, L500.4100, L500.4050 #### [facility] [address] [facility] [place], [address] Carbon dioxide, total [Moles /volume] in Central venous bloodOrdered By: Teodoro Farias on 07-10-2024 CO2 [Moles/Vol] 18.9 mmol/L Low 21.0-32.0 [facility] Chloride assayOrdered By: Kashif Farias on 07-10-2024 Chloride [Moles/Vol] 104 mmol/L 98-[address] [facility] Eosinophil percentageOrdered By: Teodoro Farias on 07-10-2024 Eosinophils/100 WBC (Bld) 0.9 % 0-5 [facility] Erythrocyte distribution wid th ratioOrdered By: Teodoro Farias on 07-10-2024 Erythrocyte distribution width (RBC) [Ratio] 13.9 % 11.6-14.6 [facility] Erythrocyte distribution wid th standard deviationOrdered By: Teodoro Farias on 07-10-2024 Erythrocyte distribution width (RBC) [Ratio] 46.5 fl High 35.1-43.9 [facility] Ferritinon 07-10-2024 Ferritin [Mass/Vol] 18 ng/mL Low 22-378 [facility] Comment on above: Order Comment: PER Paula ATIENT DO NOT RUN LIPID PANEL DONE IN Date: 04/12/24Order Info: [id number] - BMPOrder Info: [id number] - LIPIDOrder Info: [id number] - FEOrder Info: [id number] - TABITHA Performed By: #### L 501.4700, L500.4100, L500.4050 #### [facility] [address] [place], [address] Glomerular filtration rate ( GFR) estimation/1.73 sq m using serum, plasma, or whole bOrdered By: Teodoro Farias on 07-10-2024 GFR/1.73 sq M.predicted among non-blacks MDRD (S/P/Bld) [Vol rate/Area] 63 mL/min/{1.73_m2} >60 [facility] Comment on above: mL/min/1.73m2 CKD-EP I Creatinine Equation (2020) Hematocrit Auto (Bld) [Volum e fraction]Ordered By: Teodoro Farias on 07-10-2024 Hematocrit (Bld) [Volume fraction] 33.2 % Low 37-47 [facility] Hemoglobin measurementOrdere d By: Teodoro Farias on 07-10-2024 Hemoglobin (Bld) [Mass/Vol] 10.8 g/dL Low 12.0-15.0 [facility] Immature granulocytes/100 WB C Auto (Bld)Ordered By: Teodoro Farias on 07-10-2024 Immature granulocytes/100 WBC (Bld) 0.400 % 0.0-0.9 [facility] Comment on above: IG% - Immature Granu locytes (promyelocytes, myelocytes and metamyelocytes) > 1% indicates that a LEFT SHIFT is Present. Ironon 07-10-2024 Iron [Mass/Vol] 42 ug/dL Low 50-170 [facility] Comment on above: Order Comment: AMBREEN BARRAGAN DO NOT RUN LIPID PANEL DONE IN Date: 04/12/24Order Info: [id number] - BMPOrder Info: [id number] - LIPIDOrder Info: [id number] - FEOrder Info: [id number] - TABITHA Performed By: #### L 501.4700, L500.4100, L500.4050 #### [facility] Laboratory [facility] [place], [address] Iron measurement (mass/mass) Ordered By: Teodoro Farias on 07-10-2024 Iron (Unsp spec) [Mass/Mass] 42 ug/dL Low 50-170 [facility] MCV (mean corpuscular volume ) determinationOrdered By: Teodoro Farias on 07-10-2024 MCV (RBC) [Entitic vol] 91.2 fL 81-99 [facility] Mean corpuscular hemoglobin (MCH) determinationOrdered By: Teodoro Farias on 07-10-2024 MCH (RBC) [Entitic mass] 29.7 pg 27.0-32.0 [facility] Mean corpuscular hemoglobin concentration (MCHC) determinationOrdered By: Teodoro Farias on 07-10-2024 MCHC (RBC) [Mass/Vol] 32.5 g/dL 32-36 [facility] Mean platelet volume determi nationOrdered By: Teodoro Farias on 07-10-2024 Platelet mean volume (Bld) [Entitic vol] 10.0 fL 6.2-12.0 [facility] Monocyte percentageOrdered B y: Teodoro Farias on 07-10-2024 Monocytes/100 WBC (Bld) 7.0 % 0-10 [facility] Neutrophil percentageOrdered By: Teodoro Farias on 07-10-2024 Neutrophils/100 WBC (Bld) 76.3 % High 47-70 [facility] Nucleated red blood cell per centageOrdered By: Teodoro Farias on 07-10-2024 Nucleated RBC/100 WBC (Bld) [Ratio] 0 % 0-5 [facility] Platelet countOrdered By: Kashif Farias on 07-10-2024 Platelets (Bld) [#/Vol] 307 10*3/uL 150-450 [facility] Potassium measurement (mass/ volume)Ordered By: Teodoro Farias on 07-10-2024 Potassium (Unsp spec) [Mass/Vol] 4.4 mmol/L 3.3-5.1 [facility] RBC Auto (Bld) [#/Vol]Ordere d By: Teodoro Farias on 07-10-2024 RBC (Bld) [#/Vol] 3.64 10*6/uL Low 4.2-5.4 [facility] Serum creatinine measurement (mass/volume)Ordered By: Teodoro Farias on 07-10-2024 Creatinine [Mass/Vol] 0.96 mg/dL 0.70-1.20 [facility] Serum glucose measurement (m ass/volume)Ordered By: Teodoro Farias on 07-10-2024 Glucose [Mass/Vol] 154 mg/dL High 70-99 [facility] Serum or plasma calcium peng urement (mass/volume)Ordered By: Teodoro Farias on 07-10-2024 Calcium [Mass/Vol] 9.2 mg/dL 7.6-11.0 [facility] Serum or plasma ferritin lawanda surement (mass/volume)Ordered By: Teodoro Farias on 07-10-2024 Ferritin [Mass/Vol] 18 ng/mL Low 22-378 [facility] Serum or plasma urea nitroge n measurement (mass/volume)Ordered By: Teodoro Farias on 07-10-2024 Urea nitrogen [Mass/Vol] 22 mg/dL High 4-19 [facility] Sodium levelOrdered By: Sachin Farias on 07-10-2024 Sodium [Moles/Vol] 137 mmol/L 133-145 [facility] Vitamin D,25 Hydroxyon 07-10 Vitamin D 25-OH 51.5 ng/mL Normal 30-100 [facility] Comment on above: Order Comment: AMBREEN Mitchell ATJOSE L DO NOT RUN LIPID PANEL DONE IN Date: 04/12/24Order Info: [id number] - BMPOrder Info: [id number] - LIPIDOrder Info: [id number] - FEOrder Info: [id number] - TABITHA Result Comment: Nesiha min D Status Deficiency: <20 ng/mL (50nmol/L) Insufficiency: 20-30 ng/mL (50-75 nmol/L) Sufficiency: 30-100 ng/mL (75-250 nmol/L) Toxicity: >100 ng/mL (>250 nmol/L) Performed By: #### L 501.4700, L500.4100, L500.4050 #### [facility] [address] [place], [address] White blood cell (WBC) count Ordered By: Teodoro Farias on 07-10-2024 WBC (Bld) [#/Vol] 9.3 10*3/uL 4.4-11.0 [facility] Echo Completeon 06-29-2024 Echo Complete [facility] [address] [place] [address] Echo Complete 06/29/24 1302 MR#: [id number] Acct: [id number] Name: ELOISA TSANG Rep #: [id number] : 1950 74 From: Radha Hammonds MD Attending Dr: Dr. Radha Hammonds MD Status: REG CLI Ordering Dr: Radha Hammonds MD Date: 06/29/24 Location: [facility] Sex: F C Admitted: Reason For Study [...] Dictated: 06/29/24 1302 Date Transcribed: 06/29/24 141 Manager Requirements: Signed Normal [facility] Anion gap in Serum or Plasma Ordered By: Radha Hammonds on 06-11-2024 Anion gap [Moles/Vol] 13 mmol/L 5-15 [facility] BUN/creatinine ratioOrdered By: Radha Hammonds on 06-11-2024 Urea nitrogen/Creatinine [Mass ratio] 18.8 mg/mg 10-20 [facility] Bilirubin, totalOrdered By: Radha Hammonds on 06-11-2024 Bilirubin [Mass/Vol] 0.47 mg/dL 0.00-1.[address] [facility] Calculated very low density lipoprotein (VLDL) cholesterol measurementOrdered By: Radha Hammonds on 06-11-2024 Calculated very low density lipoprotein (VLDL) cholesterol measurement 31 mg/dL 5-40 [facility] VLDL Cholesterol 31 mg/dL 5-40 [facility] Carbon dioxide, total [Moles /volume] in Central venous bloodOrdered By: Radha Hammonds on 06-11-2024 CO2 [Moles/Vol] 22.4 mmol/L 21.0-32.0 [facility] Chloride assayOrdered By: Med Hammonds on 06-11-2024 Chloride [Moles/Vol] 104 mmol/L 98-[address] [facility] Comprehensive Metabolic Prof ilon 06-11-2024 Albumin [Mass/Vol] 4.1 g/dL Normal 3.4-4.8 [facility] Comment on above: Performed By: #### L 100.0500, L500.2500 #### [facility] [address] [place], [address] Albumin/Globulin [Mass ratio] 1.4 {ratio} Normal 0.9-2.4 [facility] Comment on above: Performed By: #### L 100.0500, L500.2500 #### [facility] [address] [place], [address] ALK PHOS 118 U/L High 35-104 [facility] Comment on above: Performed By: #### L 100.0500, L500.2500 #### [facility] [address] [place], [address] ALT [Catalytic activity/Vol] 19 U/L Normal <=34 [facility] Comment on above: Performed By: #### L 100.0500, L500.2500 #### [facility] [address] [place], [address] AST [Catalytic activity/Vol] 20 U/L Normal <=31 [facility] Comment on above: Performed By: #### L 100.0500, L500.2500 #### [facility] [address] [place], [address] Bilirubin [Mass/Vol] 0.47 mg/dL Normal 0.00-1.[address] [facility] Comment on above: Performed By: #### L 100.0500, L500.2500 #### [facility] [address] [place], [address] BUN/CRE 18.8 RATIO Normal 10-20 [facility] Comment on above: Performed By: #### L 100.0500, L500.2500 #### [facility] [address] [place], [address] Calcium [Mass/Vol] 9.2 mg/dL Normal 7.6-11.0 [facility] Comment on above: Performed By: #### L 100.0500, L500.2500 #### [facility] [address] [place], [address] Chloride [Moles/Vol] 104 mmol/L Normal 98-[address] [facility] Comment on above: Performed By: #### L 100.0500, L500.2500 #### [facility] [address] [place], [address] CO2 [Moles/Vol] 22.4 mmol/L Normal 21.0-32.0 [facility] Comment on above: Performed By: #### L 100.0500, L500.2500 #### [facility] [address] [place], [address] Creatinine [Mass/Vol] 0.84 mg/dL Normal 0.70-1.20 [facility] Comment on above: Performed By: #### L 100.0500, L500.2500 #### [facility] [address] [place], [address] GAP 13 Normal 5-15 [facility] Comment on above: Performed By: #### L 100.0500, L500.2500 #### [facility] [address] [place], [address] GFR/1.73 sq M.predicted among non-blacks MDRD (S/P/Bld) [Vol rate/Area] 74 mL/min/{1.73_m2} Normal >60 [facility] Comment on above: Result Comment: mL/m in/1.73m2 CKD-EPI Creatinine Equation (2020) Performed By: #### L 100.0500, L500.2500 #### [facility] [address] [place], [address] Globulin (S) [Mass/Vol] 2.9 g/dL Normal 2.2-4.2 [facility] Comment on above: Performed By: #### L 100.0500, L500.2500 #### [facility] [address] [place], [address] Glucose [Mass/Vol] 121 mg/dL High 70-99 [facility] Comment on above: Performed By: #### L 100.0500, L500.2500 #### [facility] [address] [place], [address] Potassium [Moles/Vol] 4.0 mmol/L Normal 3.3-5.1 [facility] Comment on above: Performed By: #### L 100.0500, L500.2500 #### [facility] [address] [place], [address] Sodium [Moles/Vol] 139 mmol/L Normal 133-145 [facility] Comment on above: Performed By: #### L 100.0500, L500.2500 #### [facility] [address] [place], [address] T PROT 6.9 g/dL Normal 5.9-8.4 [facility] Comment on above: Performed By: #### L 100.0500, L500.2500 #### [facility] [address] [place], [address] Urea nitrogen [Mass/Vol] 16 mg/dL Normal 4-19 [facility] Comment on above: Performed By: #### L 100.0500, L500.2500 #### [facility] [address] [place], [address] GFR/1.73 sq M.predicted debra g non-blacks MDRD (S/P/Bld) [Vol rate/Area]Ordered By: Radha Hammonds on 06-11-2024 Estimated GFR (MDRD) Non-Af Amer 74 >60 [facility] Comment on above: mL/min/1.73m2 CKD-EP I Creatinine Equation (2020) Glomerular filtration rate ( GFR) estimation/1.73 sq m using serum, plasma, or whole bOrdered By: Radha Hammonds on 06-11-2024 GFR/1.73 sq M.predicted among non-blacks MDRD (S/P/Bld) [Vol rate/Area] 74 mL/min/{1.73_m2} >60 [facility] Comment on above: mL/min/1.73m2 CKD-EP I Creatinine Equation (2020) LDL calc ser/plasOrdered By: Radha Hammonds on 06-11-2024 Cholesterol in LDL [Mass/Vol] 72 mg/dL [facility] Comment on above: Cpvmkcuaas=693-156 m g/dL & Higher Uasn=578 mg/dL or greater LDL Cholesterol, Calculated 72 mg/dL [facility] Comment on above: Dwekplqdkx=676-742 m g/dL & Higher Flxh=091 mg/dL or greater Laboratory - Chemistry and C hemistry - challengeOrdered By: Radha Hammonds on 06-11-2024 AST [Catalytic activity/Vol] 20 U/L <32 [facility] Lipid Profileon 06-11-2024 CHOL:HDL 2.95 Normal [facility] Comment on above: Performed By: #### L 100.0500, L500.2500 #### [facility] [address] [facility] [place], [place], [id number] (078) Cholesterol [Mass/Vol] 155 mg/dL Normal <=200 [facility] Comment on above: Result Comment: Chol esterol level, Desirable <200 mg/dL Borderline high cholesterol 200-239 mg/dL High cholesterol >=240 mg/dL Recommendations of the NCEP Adult Treatment Panel for the following risk-cutoff thresholds for the [place] population. Performed By: #### L 100.0500, L500.2500 #### [facility] [address] [place], [address] Cholesterol in HDL [Mass/Vol] 53 mg/dL Normal [facility] Comment on above: Result Comment: Leah onal Cholesterol Education Program (NCEP) guidelines: <40 mg/dL: Low HDL-cholesterol (major risk factor for CHD) >= 60 mg/dL: High HDL-cholesterol (negative risk factor for CHD) HDL-cholesterol is affected by a number of factors, e.g. smoking, exercise, hormones, sex and age. Performed By: #### L 100.0500, L500.2500 #### [facility] [address] [place], [address] Cholesterol in LDL [Mass/Vol] 72 mg/dL Normal [facility] Comment on above: Result Comment: Bord ummweb=781-809 mg/dL Higher Yegh=916 mg/dL or greater Performed By: #### L 100.0500, L500.2500 #### [facility] [address] [place], [address] Cholesterol in VLDL [Mass/Vol] 31 mg/dL Normal 5-40 [facility] Comment on above: Performed By: #### L 100.0500, L500.2500 #### [facility] [address] [place], [address] Triglyceride [Mass/Vol] 154 mg/dL Normal [facility] Comment on above: Result Comment: The drugs N-Acetylcysteine and Metamizole may falsely depress this assay. Normal range: <150 mg/dL Borderline High: 150-199 mg/dL High: 200-499 mg/dL Very High: >500 mg/dL Performed By: #### L 100.0500, L500.2500 #### [facility] [address] [place], [address] Potassium (Unsp spec) [Mass/ Vol]Ordered By: Radha Hammonds on 06-11-2024 Potassium [Moles/Vol] 4.0 mmol/L 3.3-5.1 [facility] Potassium measurement (mass/ volume)Ordered By: Radha Hammonds on 06-11-2024 Potassium (Unsp spec) [Mass/Vol] 4.0 mmol/L 3.3-5.1 [facility] Screening total cholesterol/ high density lipoprotein (HDL) cholesterol ratioOrdered By: Radha Hammonds on 06-11-2024 Cholesterol.total/Choles terol in HDL [Mass ratio] 2.95 {ratio} [facility] Serum creatinine measurement (mass/volume)Ordered By: Radha Hammonds on 06-11-2024 Creatinine [Mass/Vol] 0.84 mg/dL 0.70-1.20 [facility] Serum globulin measurementOr dered By: Radha Hammonds on 06-11-2024 Globulin (S) [Mass/Vol] 2.9 g/dL 2.2-4.2 [facility] Serum glucose measurement (m ass/volume)Ordered By: Radha Hammonds on 06-11-2024 Glucose [Mass/Vol] 121 mg/dL High 70-99 [facility] Serum or plasma alanine urbano otransferase (ALT) measurementOrdered By: Radha Hammonds on 06-11-2024 ALT [Catalytic activity/Vol] 19 U/L <35 [facility] Serum or plasma albumin peng urement (mass/volume)Ordered By: Radha Hammonds on 06-11-2024 Albumin [Mass/Vol] 4.1 g/dL 3.4-4.8 [facility] Serum or plasma albumin/glob ulin mass ratioOrdered By: Radha Hammonds on 06-11-2024 Albumin/Globulin [Mass ratio] 1.4 {ratio} 0.9-2.4 [facility] [facility] Serum or plasma alkaline reji sphatase measurementOrdered By: Radha Hammonds on 06-11-2024 ALP [Catalytic activity/Vol] 118 U/L High 35-104 [facility] Serum or plasma calcium peng urement (mass/volume)Ordered By: Radha Hammonds on 06-11-2024 Calcium [Mass/Vol] 9.2 mg/dL 7.6-11.0 [facility] Serum or plasma cholesterol in HDL measurement (mass/volume)Ordered By: Radha Hammonds on 06-11-2024 Cholesterol in HDL [Mass/Vol] 53 mg/dL >40 [facility] Comment on above: National Cholesterol Education Program (NCEP) guidelines:<40 mg/dL: Low HDL-cholesterol (major risk factor for CHD)>= 60 mg/dL: High HDL-cholesterol (negative risk factor for CHD)HDL-cholesterol is affected by a number of factors, e.g. smoking, exercise, hormones, sex and age. Serum or plasma cholesterol measurement (mass/volume)Ordered By: Radha Hammonds on 06-11-2024 Cholesterol [Mass/Vol] 155 mg/dL <201 [facility] Comment on above: Cholesterol level, D esirable <200 mg/dLBorderline high cholesterol 200-239 mg/dLHigh cholesterol >=240 mg/dLRecommendations of the NCEP Adult Treatment Panel for the following risk-cutoff thresholds for the [place] population. Serum or plasma urea nitroge n measurement (mass/volume)Ordered By: Radha Hammonds on 06-11-2024 Urea nitrogen [Mass/Vol] 16 mg/dL 4-19 [facility] Sodium levelOrdered By: Ganesh Hammonds on 06-11-2024 Sodium [Moles/Vol] 139 mmol/L 133-145 [facility] Total proteinOrdered By: Chidi Hammonds on 06-11-2024 Protein [Mass/Vol] 6.9 g/dL 5.9-8.4 [facility] Triglycerides measurementOrd ered By: Radha Hammonds on 06-11-2024 Triglyceride [Mass/Vol] 154 mg/dL <199 [facility] Comment on above: The drugs N-Acetylcy steine and Metamizole may falsely depress this assay. Normal range: <150 mg/dLBorderline High: 150-199 mg/dLHigh: 200-499 mg/dLVery High: >500 mg/dL Cardiology Visit Reporton Cardiology Visit Report [facility] [address] [place], [place] [address] OFFICE VISIT Date of Service: 06/05/24 MR#: [id number] Acct: [id number] Name: ELOISA TSANG SUE Rep #: [id number] : 1950 Provider: Dr. 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 Normal [facility] Stress Reporton 02-15-2024 Stress Report [facility] [address] [place] [address] MR#: [id number] Acct: [id number] Name: ELOISA TSANG SUE Rep #: [id number] : 1950 73 From: Telly Cardoso MD [...] 02/15/241613 Date Telly Cardoso MD CC: Dr. Teodoro Farias MD Date Dictated: 02/15/241611 Date Transcribed: 02/15/241611 Manager Requirements: CO Signed Normal [facility] Stool Occult Blood iFOBon STOB Negative Normal [facility] Comment on above: Performed By: #### L 501.4700, L500.4100, L500.4050 #### [facility] Laboratory [address] [place], [address] CBC W/Diff, Automatedon 12 Absolute Lymph 1.48 X10 3/uL Normal 0.83-4.51 [facility] Comment on above: Performed By: #### L 501.9985, L501.9520 #### [facility] Laboratory [address] [place], [address] Absolute Neut 5.8 X10 3/uL Normal 2.0-7.7 [facility] Comment on above: Performed By: #### L 501.9985, L501.9520 #### [facility] Laboratory [address] [place], [address] Basophils/100 WBC (Bld) 0.7 % Normal 0-1 [facility] Comment on above: Performed By: #### L 501.9985, L501.9520 #### [facility] [address] [place], [address] Eosinophils/100 WBC (Bld) 1.6 % Normal 0-5 [facility] Comment on above: Performed By: #### L 501.9985, L501.9520 #### [facility] [address] [place], [address] Erythrocyte distribution width (RBC) [Ratio] 13.3 % Normal 11.6-14.6 [facility] Comment on above: Performed By: #### L 501.9985, L501.9520 #### [facility] Laboratory [address] [place], [address] Hematocrit (Bld) [Volume fraction] 34.3 % Low 37-47 [facility] Comment on above: Performed By: #### L 501.9985, L501.9520 #### [facility] [address] [place], [address] Hemoglobin (Bld) [Mass/Vol] 11.0 g/dL Low 12.0-15.0 [facility] Comment on above: Performed By: #### L 501.9985, L501.9520 #### [facility] Laboratory [address] [place], [address] IG% 0.400 Normal 0.0-0.9 [facility] Comment on above: Result Comment: IG% - Immature Granulocytes (promyelocytes, myelocytes and metamyelocytes) > 1% indicates that a LEFT SHIFT is Present. Performed By: #### L 501.9985, L501.9520 #### [facility] [address] [place], [address] Lymphocytes/100 WBC (Bld) 18.0 % Low 19-41 [facility] Comment on above: Performed By: #### L 501.9985, L501.9520 #### [facility] Laboratory [address] [place], [address] MCH (RBC) [Entitic mass] 29.6 pg Normal 27.0-32.0 [facility] Comment on above: Performed By: #### L 501.9985, L501.9520 #### [facility] Laboratory [address] [place], [address] MCHC (RBC) [Mass/Vol] 32.1 g/dL Normal 32-36 [facility] Comment on above: Performed By: #### L 501.9985, L501.20 #### [facility] [address] [place], [address] MCV (RBC) [Entitic vol] 92.5 fL Normal 81-99 [facility] Comment on above: Performed By: #### L 501.9985, L501.20 #### [facility] [address] [place], [address] Monocytes/100 WBC (Bld) 9.3 % Normal 0-10 [facility] Comment on above: Performed By: #### L 501.9985, L501.20 #### [facility] [address] [place], [address] Neutrophils/100 WBC (Bld) 70.0 % Normal 47-70 [facility] Comment on above: Performed By: #### L 501.85, L501.20 #### [facility] [address] [place], [address] Nucleated RBC (Bld) [#/Vol] 0 10*3/uL Normal 0-5 [facility] Comment on above: Performed By: #### L 501.9985, L501.20 #### [facility] [address] [place], [address] Platelet mean volume (Bld) [Entitic vol] 10.2 fL Normal 6.2-12.0 [facility] Comment on above: Performed By: #### L 501.9985, L501.9520 #### [facility] Laboratory [address] [place], [address] Platelets (Bld) [#/Vol] 300 10*3/uL Normal 150-450 [facility] Comment on above: Performed By: #### L 501.99, L501.9520 #### [facility] Laboratory [address] [place], [address] RBC (Bld) [#/Vol] 3.71 10*6/uL Low 4.2-5.4 [facility] Comment on above: Performed By: #### L 501.9985, L501.9520 #### [facility] [address] [place], [address] RDW SD 45.5 fl High 35.1-43.9 [facility] Comment on above: Performed By: #### L 501.9985, L501.9520 #### [facility] [address] [place], [address] WBC (Bld) [#/Vol] 8.2 10*3/uL Normal 4.4-11.0 [facility] Comment on above: Performed By: #### L 501.9985, L501.9520 #### [facility] [address] [place], [address] CRPon 02-09-2024 C-REACTIVE PROT < 2.90 Normal 0.0-3.0 [facility] Comment on above: Result Comment: C-Re active Protein (CRP) provides useful information for the diagnosis, therapy and monitoring of inflammatory processes and associated diseases. For the evaluation of Relative Risk for Cardiovascular Disease, a High Sensitivity CRP (HSCRP) should be ordered. Performed By: #### L 501.4700, L500.4100, L500.4050 #### [facility] [address] [place], [address] Comprehensive Metabolic Prof ilon 02-09-2024 Albumin [Mass/Vol] 3.6 g/dL Normal 3.2-5.0 [facility] Comment on above: Order Comment: 1 Performed By: #### L 501.9985, L501.9520 #### [facility] [address] [place], [address] Albumin/Globulin [Mass ratio] 1.0 {ratio} Normal 0.9-2.4 [facility] Comment on above: Order Comment: 1 Performed By: #### L 501.9985, L501.9520 #### [facility] [address] [place], [address] ALK P 124 U/L High 45-117 [facility] Comment on above: Order Comment: 1 Performed By: #### L 501.9985, L501.9520 #### [facility] [address] [place], [address] ALT [Catalytic activity/Vol] 41 U/L Normal 13-56 [facility] Comment on above: Order Comment: 1 Performed By: #### L 501.9985, L501.9520 #### [facility] [address] [place], [address] AST [Catalytic activity/Vol] 23 U/L Normal 15-37 [facility] Comment on above: Order Comment: 1 Performed By: #### L 501.9985, L501.9520 #### [facility] [address] [place], [address] Bilirubin [Mass/Vol] 0.50 mg/dL Normal 0.20-1.[address] [facility] Comment on above: Order Comment: 1 Result Comment: For patients on eltrombopag therapy, use of Dimension [place] TBIL is not recommended. Performed By: #### L 501.9985, L501.9520 #### [facility] [address] [place], [address] BUN/CRE 17.1 RATIO Normal 10-20 [facility] Comment on above: Order Comment: 1 Performed By: #### L 501.9985, L501.9520 #### [facility] Laboratory [address] [place], [address] CA,Total 8.9 mg/dL Normal 8.5-10.1 [facility] Comment on above: Order Comment: 1 Performed By: #### L 501.9985, L501.9520 #### [facility] [address] [place], [address] Chloride [Moles/Vol] 107 mmol/L Normal 98-[address] [facility] Comment on above: Order Comment: 1 Performed By: #### L 501.9985, L501.9520 #### [facility] [address] [place], [address] CO2 [Moles/Vol] 25.0 mmol/L Normal 21.0-32.0 [facility] Comment on above: Order Comment: 1 Performed By: #### L 501.9985, L501.9520 #### [facility] [address] [place], [address] Creatinine [Mass/Vol] 1.23 mg/dL High 0.55-1.02 [facility] Comment on above: Order Comment: 1 Result Comment: The validity of the calculated GFR GFRAA in patients over 70 years has not been determined. Clinical correlation is essential. Performed By: #### L 501.9985, L501.9520 #### [facility] [address] [place], [address] EST GFR - AA 55 mL/min Low >60 [facility] Comment on above: Order Comment: 1 Result Comment: Afri can [place] GFR Calc Performed By: #### L 501.9985, L501.9520 #### [facility] [address] [place], [address] GAP 6 Normal 5-15 [facility] Comment on above: Order Comment: 1 Performed By: #### L 501.9985, L501.9520 #### [facility] [address] [place], [address] GFR/1.73 sq M.predicted among non-blacks MDRD (S/P/Bld) [Vol rate/Area] 46 mL/min/{1.73_m2} Low >60 [facility] Comment on above: Order Comment: 1 Result Comment: Non- GFR Calc Performed By: #### L 501.9985, L501.9520 #### [facility] [address] [place], [address] Globulin (S) [Mass/Vol] 3.6 g/dL Normal 2.2-4.2 [facility] Comment on above: Order Comment: 1 Performed By: #### L 501.9985, L501.9520 #### [facility] Laboratory [address] [place], [address] Glucose [Mass/Vol] 177 mg/dL High 74-106 [facility] Comment on above: Order Comment: 1 Result Comment: Fast ing Glucose result greater than or equal to 126 mg/dL suggests DIABETES MELLITUS per A.D.A. criteria. Performed By: #### L 501.9985, L501.9520 #### [facility] [address] [place], [address] Potassium [Moles/Vol] 4.3 mmol/L Normal 3.5-5.1 [facility] Comment on above: Order Comment: 1 Performed By: #### L 501.9985, L501.9520 #### [facility] [address] [place], [address] Sodium [Moles/Vol] 139 mmol/L Normal 136-145 [facility] Comment on above: Order Comment: 1 Performed By: #### L 501.9985, L501.9520 #### [facility] [address] [place], [address] T PROT 7.2 g/dL Normal 6.4-8.2 [facility] Comment on above: Order Comment: 1 Performed By: #### L 501.9985, L501.9520 #### [facility] [address] [place], [address] Urea nitrogen [Mass/Vol] 21 mg/dL High 7-18 [facility] Comment on above: Order Comment: 1 Performed By: #### L 501.9985, L501.9520 #### [facility] [address] [place], [address] Erythrocyte Sed Rateon 02-08 SED RATE 7 mm/hr Normal 0-30 [facility] Comment on above: Performed By: #### L 501.4700, L500.4100, L500.4050 #### [facility] [address] [place], [address] Ferritinon 02-09-2024 Ferritin [Mass/Vol] 10 ng/mL Normal 8-252 [facility] Comment on above: Performed By: #### L 501.4700, L500.4100, L500.4050 #### [facility] [address] [place], [address] Iron+Iron Binding Capacityon 02-09-2024 Iron [Mass/Vol] 52 ug/dL Normal 50-170 [facility] Comment on above: Performed By: #### L 501.4700, L500.4100, L500.4050 #### [facility] [address] [place], [address] IRON SATURATION 13.8 Low 15.0-55.0 [facility] Comment on above: Performed By: #### L 501.4700, L500.4100, L500.4050 #### [facility] [address] [place], [address] TIBC 377 ug/dL Normal 250-450 [facility] Comment on above: Performed By: #### L 501.4700, L500.4100, L500.4050 #### [facility] [address] [place], [address] LDHon 02-09-2024 LDH 169 U/L Normal 84-246 [facility] Comment on above: Order Comment: 1 Performed By: #### L 501.9985, L501.9520 #### [facility] Laboratory [address] [place], [place], [address] Magnesiumon 02-09-2024 Magnesium [Mass/Vol] 1.7 mg/dL Normal 1.6-2.[address] [facility] Comment on above: Performed By: #### L 501.4700, L500.4100, L500.4050 #### [facility] [address] [place], [address] Oncology Visit Reporton Oncology Visit Report [facility] [place] [facility] [address] [place] [address] OFFICE VISIT Date of Service: 02/09/24 [facility] MR#: [id number] Acct: [id number] Name: ELOISA TSANG SUE Rep #: [id number] : 1950 From: Floyd Ahmadi MD Age/Sex: 73/F Location: [facility] [place] Status: Signed HPI Subjective Date of Service 01/31/23 Chief Complaint Follow-up for R breast cancer. History of Present Illness Ms. 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 She is s/p MRM and axillary dissection. Biology of her disease proved ER positive, NC negative, HER2 negative. She completed 4 cycles [...] She comes for follow up. Feels well. [facility] Medical History Ischemic cardiomyopathy Atherosclerosis of coronary artery of [place] heart without angina pectoris Stage 3b chronic [...] 11:13) Hive (more content not included)... Normal [facility] Phosphoruson 02-09-2024 Phosphate [Mass/Vol] 4.5 mg/dL Normal 2.5-4.[address] [facility] Comment on above: Performed By: #### L 501.4700, L500.4100, L500.4050 #### [facility] Laboratory [address] [place], [address] Retic Panelon 02-09-2024 IM RET FRACTION 9.50 Normal 3.00-15.90 [facility] Comment on above: Performed By: #### L 501.4700, L500.4100, L500.4050 #### [facility] [address] [place], [address] RET-HE 32.7 pg Normal 30-35 [facility] Comment on above: Performed By: #### L 501.4700, L500.4100, L500.4050 #### [facility] Laboratory [address] [place], [address] Retic Count 1.51 High 0.5-1.5 [facility] Comment on above: Performed By: #### L 501.4700, L500.4100, L500.4050 #### [facility] [address] [place], [place], [address] SCREEN MAMM (CAD) W/HILARY UNI Tucker 01-26-2024 SCREEN MAMM (CAD) W/HILARY UNI [facility] [address] [place] [address] SCREEN MAMM (CAD) W/HILARY UNI L MR#: [id number] Acct: [id number] Name: ELOISA TSANG Rep #: [id number] : 1950 F 73 From: Doug castellanos MD PCP: Dr. Teodoro Farias MD Status: [facility] Study: SCREEN MAMM (CAD) W/HILARY UNI L Date of Exam: 03/27/23 Exam# [id number] Ordering Dr: Floyd Ahmadi MD [id number] MAMMOGRAPHY - UNILATERAL SCREENING: LEFT BREAST REASON [...] delay biopsy of a clinically suspicious abnormality. [id number] Electronically Signed: Doug Kennedy MD at 11:26 EST , CC: Dr. Teodoro Farias MD; Dr. Floyd Ahmadi MD Manager Requirements: Signed Normal [facility] Basophil percentageOrdered B y: Radha Hammonds on 07-05-2023 Bilirubin [Mass/Vol] 0.60 mg/dL 0.20-1.[address] [facility] Comment on above: For patients on eltr ombopag therapy, use of Dimension [place] TBIL is not recommended. Chloride [Moles/Vol] 106 mmol/L 98-[address] [facility] Cholesterol [Mass/Vol] 159 mg/dL <200 [facility] Comment on above: <200 mg/dL Desirable 200-240 mg/dL Borderline >240 mg/dL High Risk Glucose [Mass/Vol] 147 mg/dL 74-106 [facility] Comment on above: Fasting Glucose resu lt greater than or equal to 126 mg/dL suggests DIABETES MELLITUS per A.D.A. criteria. Potassium [Moles/Vol] 3.7 mmol/L 3.5-5.1 [facility] Protein [Mass/Vol] 7.0 g/dL 6.4-8.2 [facility] Sodium [Moles/Vol] 139 mmol/L 136-145 [facility] Triglyceride [Mass/Vol] 215 mg/dL <199 [facility] Comment on above: The drugs N-Acetylcy steine and Metamizole may falsely depress this assay.Serum Triglycerides Reference Interval Normal <150 mg/dL Borderline high 150 - 199 mg/dL High 200 - 499 mg/dL Very High > or = 500 mg/dL Laboratory - Chemistry and C hemistry - challengeOrdered By: Radha Hammonds on 07-05-2023 Albumin/Globulin [Mass ratio] 0.9 {ratio} 0.9-2.4 [facility] ALP [Catalytic activity/Vol] 116 U/L 45-117 [facility] ALT [Catalytic activity/Vol] 33 U/L 13-56 [facility] Cholesterol in HDL [Mass/Vol] 50 mg/dL >40 [facility] Comment on above: The drugs N-Acetylcy steine and Metamizole may falsely depress this assay. Reference Range HDL <40 mg/dL Low HDL Cholesterol HDL >or= 60 mg/dL High HDL Cholesterol Cholesterol in LDL [Mass/Vol] 66 mg/dL 0-130 [facility] CO2 [Moles/Vol] 27.0 mmol/L 21.0-32.0 [facility] Globulin (S) [Mass/Vol] 3.6 g/dL 2.2-4.2 [facility] Urea nitrogen/Creatinine [Mass ratio] 16.3 mg/mg 10-20 [facility] No Panel InformationOrdered By: Radha Hammonds on 07-05-2023 Estimated GFR (MDRD) Amer 72 mL/min >60 [facility] Comment on above: GFR Calc Estimated GFR (MDRD) Non-Af Amer 60 mL/min >60 [facility] Comment on above: Non- GFR Calc VLDL Cholesterol 43 mg/dL 5-40 [facility] Serum or plasma calcium peng urement (mass/volume)Ordered By: Radha Hammonds on 07-05-2023 Calcium [Mass/Vol] 8.5 mg/dL 8.5-10.1 [facility] Serum or plasma creatinine m easurement (mass/volume)Ordered By: Radha Hammonds on 07-05-2023 Creatinine [Mass/Vol] 0.98 mg/dL 0.55-1.02 [facility] Comment on above: The validity of the calculated GFR & GFRAA in patients over 70 years has not been determined. Clinical correlation is essential. Serum or plasma urea nitroge n measurement (mass/volume)Ordered By: Radha Hammonds on 07-05-2023 Urea nitrogen [Mass/Vol] 16 mg/dL 7-18 [facility] Thin prep Papanicolaou smear with manual screeningOrdered By: Radha Hammonds on 07-05-2023 Thin prep Papanicolaou smear with manual screening 3.4 g/dL 3.2-5.0 [facility] Thin prep Papanicolaou smear with manual screening 23 U/L 15-37 [facility] Thin prep Papanicolaou smear with manual screening 6 5-15 [facility] Absolute lymphocyte countOrd ered By: Mildred Pedersen on 03-11-2023 Lymphocytes Auto (Unsp spec) [#/Vol] 2.03 10*3/uL 0.83-4.51 [facility] Basophil percentageOrdered B y: Mildred Pedersen on 03-11-2023 Basophil percentage 4.9 mg/dL 2.5-4.9 [facility] Basophils/100 WBC (Bld) 0.7 % 0-1 [facility] Chloride [Moles/Vol] 106 mmol/L 98-[address] [facility] Cholesterol [Mass/Vol] 170 mg/dL <200 [facility] Comment on above: <200 mg/dL Desirable 200-240 mg/dL Borderline >240 mg/dL High Risk Eosinophils/100 WBC (Bld) 2.3 % 0-5 [facility] Glucose [Mass/Vol] 149 mg/dL 74-106 [facility] Comment on above: Fasting Glucose resu lt greater than or equal to 126 mg/dL suggests DIABETES MELLITUS per A.D.A. criteria. Neutrophils (Bld) [#/Vol] 5.8 10*3/uL 2.0-7.7 [facility] Neutrophils/100 WBC (Bld) 64.1 % 47-70 [facility] Potassium [Moles/Vol] 3.6 mmol/L 3.5-5.1 [facility] Sodium [Moles/Vol] 139 mmol/L 136-145 [facility] Triglyceride [Mass/Vol] 170 mg/dL <199 [facility] Comment on above: The drugs N-Acetylcy steine and Metamizole may falsely depress this assay.Serum Triglycerides Reference Interval Normal <150 mg/dL Borderline high 150 - 199 mg/dL High 200 - 499 mg/dL Very High > or = 500 mg/dL WBC (Bld) [#/Vol] 9.0 10*3/uL 4.4-11.0 [facility] Blood erythrocytes count (nu mber/volume)Ordered By: Mildred Pedersen on 03-11-2023 RBC (Bld) [#/Vol] 3.63 10*6/uL 4.2-5.4 [facility] Blood hemoglobin measurement (mass/volume)Ordered By: Mildred Pedersen on 03-11-2023 Hemoglobin (Bld) [Mass/Vol] 10.6 g/dL 12.0-15.0 [facility] Blood lymphocytes/100 leukoc ytesOrdered By: Mildred Pedersen on 03-11-2023 Lymphocytes/100 WBC (Bld) 22.5 % 19-41 [facility] Blood monocytes/100 leukocyt esOrdered By: Mildred Pedersen on 03-11-2023 Monocytes/100 WBC (Bld) 10.1 % 0-10 [facility] Blood platelet mean volumeOr dered By: Mildred Pedersen on 03-11-2023 Platelet mean volume (Bld) [Entitic vol] 9.9 fL 6.2-12.0 [facility] Determination of erythrocyte mean corpuscular volume (MCV)Ordered By: Mildred Pedersen on 03-11-2023 MCV (RBC) [Entitic vol] 91.2 fL 81-99 [facility] Hematocrit Auto (Bld) [Volum e fraction]Ordered By: Mildred Pedersen on 03-11-2023 Hematocrit (Bld) [Volume fraction] 33.1 % 37-47 [facility] Laboratory - Chemistry and C hemistry - challengeOrdered By: Mildred Pedersen on 03-11-2023 CO2 [Moles/Vol] 24.0 mmol/L 21.0-32.0 [facility] Magnesium [Mass/Vol] 1.8 mg/dL 1.6-2.[address] [facility] Urea nitrogen/Creatinine [Mass ratio] 21.9 mg/mg 10-20 [facility] Laboratory - Hematology and Cell countsOrdered By: Mildred Pedersen on 03-11-2023 Erythrocyte distribution width (RBC) [Entitic vol] 44.9 fL 35.1-43.9 [facility] Erythrocyte distribution width (RBC) [Ratio] 13.4 % 11.6-14.6 [facility] Immature granulocytes/100 WBC (Bld) 0.300 % 0.0-0.9 [facility] Comment on above: IG% - Immature Granu locytes (promyelocytes, myelocytes and metamyelocytes) > 1% indicates that a LEFT SHIFT is Present. MCH (RBC) [Entitic mass] 29.2 pg 27.0-32.0 [facility] Nucleated RBC/100 WBC (Bld) [Ratio] 0 % 0-5 [facility] MCHC Auto (RBC) [Mass/Vol]Or dered By: Mildred Pedersen on 03-11-2023 MCHC (RBC) [Mass/Vol] 32.0 g/dL 32-36 [facility] No Panel InformationOrdered By: Mildred Pedersen on 03-11-2023 Estimated Creatinine Clearance Calc 44.86 ml/min [facility] Estimated GFR (MDRD) Amer 67 mL/min >60 [facility] Comment on above: GFR Calc Estimated GFR (MDRD) Non-Af Amer 55 mL/min >60 [facility] Comment on above: Non- GFR Calc Platelets bldOrdered By: Dinorah Pedersen on 03-11-2023 Platelets (Bld) [#/Vol] 271 10*3/uL 150-450 [facility] Serum or plasma calcium peng urement (mass/volume)Ordered By: Mildred Pedersen on 03-11-2023 Calcium [Mass/Vol] 8.6 mg/dL 8.5-10.1 [facility] Serum or plasma cholesterol in HDL measurement (mass/volume)Ordered By: Mildred Pedersen on 03-11-2023 Cholesterol in HDL [Mass/Vol] 54 mg/dL >40 [facility] Comment on above: The drugs N-Acetylcy steine and Metamizole may falsely depress this assay. Reference Range HDL <40 mg/dL Low HDL Cholesterol HDL >or= 60 mg/dL High HDL Cholesterol Serum or plasma cholesterol in VLDL measurement (mass/volume)Ordered By: Mildred Pedersen on 03-11-2023 Cholesterol in VLDL [Mass/Vol] 34 mg/dL 5-40 [facility] Serum or plasma creatinine m easurement (mass/volume)Ordered By: Mildred Pedersen on 03-11-2023 Creatinine [Mass/Vol] 1.05 mg/dL 0.55-1.02 [facility] Comment on above: The validity of the calculated GFR & GFRAA in patients over 70 years has not been determined. Clinical correlation is essential. Serum or plasma low density lipoprotein (LDL) cholesterol measurement (mass/volume)Ordered By: Mildred Pedersen on 03-11-2023 Cholesterol in LDL [Mass/Vol] 82 mg/dL 0-130 [facility] Serum or plasma urea nitroge n measurement (mass/volume)Ordered By: Mildred Pedersen on 03-11-2023 Urea nitrogen [Mass/Vol] 23 mg/dL 7-18 [facility] Thin prep Papanicolaou smear with manual screeningOrdered By: Mildred Pedersen on 03-11-2023 Thin prep Papanicolaou smear with manual screening 9 5-15 [facility] Basophil percentageOrdered B y: Radha Hammonds on 03-10-2023 Bilirubin [Mass/Vol] 0.50 mg/dL 0.20-1.[address] [facility] Comment on above: For patients on eltr ombopag therapy, use of Dimension [place] TBIL is not recommended. Protein [Mass/Vol] 7.2 g/dL 6.4-8.2 [facility] Laboratory - Chemistry and C hemistry - challengeOrdered By: Radha Hammonds on 03-10-2023 ALP [Catalytic activity/Vol] 114 U/L 45-117 [facility] ALT [Catalytic activity/Vol] 57 U/L 13-56 [facility] Globulin (S) [Mass/Vol] 3.5 g/dL 2.2-4.2 [facility] Serum or plasma albumin peng urement (mass/volume)Ordered By: Radha Hammonds on 03-10-2023 Albumin [Mass/Vol] 3.7 g/dL 3.2-5.0 [facility] Serum or plasma albumin/glob ulin mass ratioOrdered By: Radha Hammonds on 03-10-2023 Albumin/Globulin [Mass ratio] 1.1 {ratio} 0.9-2.4 [facility] Thin prep Papanicolaou smear with manual screeningOrdered By: Radha Hammonds on 03-10-2023 Thin prep Papanicolaou smear with manual screening 217 U/L 15-37 [facility] Whole blood hemoglobin A1c/t otal hemoglobin ratio (mass fraction)Ordered By: Jon Jacome on 03-10-2023 HbA1c (Bld) [Mass fraction] 6.7 % 3.8-5.6 [facility] Comment on above: Normal < 5.7 % Predi abetic 5.7 - 6.4 % Diabetic >or= 6.5 % Please note range changes. Absolute lymphocyte countOrd ered By: Leoncio Jorge on 03-09-2023 Lymphocytes Auto (Unsp spec) [#/Vol] 1.97 10*3/uL 0.83-4.51 [facility] Absolute lymphocyte countOrd ered By: Feliperachael Ayala on 03-09-2023 Lymphocytes Auto (Unsp spec) [#/Vol] 0.91 10*3/uL 0.83-4.51 [facility] Basophil percentageOrdered B y: Leoncio Henleyo on 03-09-2023 Basophils/100 WBC (Bld) 0.4 % 0-1 [facility] Eosinophils/100 WBC (Bld) 0.2 % 0-5 [facility] Neutrophils (Bld) [#/Vol] 10.5 10*3/uL 2.0-7.7 [facility] Neutrophils/100 WBC (Bld) 77.1 % 47-70 [facility] WBC (Bld) [#/Vol] 13.6 10*3/uL 4.4-11.0 [facility] Basophil percentageOrdered B y: Tong Fregosoke on 03-09-2023 Basophils/100 WBC (Bld) 0.4 % 0-1 [facility] Bilirubin [Mass/Vol] 0.40 mg/dL 0.20-1.[address] [facility] Comment on above: For patients on eltr ombopag therapy, use of Dimension [place] TBIL is not recommended. Chloride [Moles/Vol] 105 mmol/L 98-[address] [facility] Cholesterol [Mass/Vol] 198 mg/dL <200 [facility] Comment on above: <200 mg/dL Desirable 200-240 mg/dL Borderline >240 mg/dL High Risk Eosinophils/100 WBC (Bld) 0.2 % 0-5 [facility] Glucose [Mass/Vol] 170 mg/dL 74-106 [facility] Comment on above: Fasting Glucose resu lt greater than or equal to 126 mg/dL suggests DIABETES MELLITUS per A.D.A. criteria. Neutrophils (Bld) [#/Vol] 11.4 10*3/uL 2.0-7.7 [facility] Neutrophils/100 WBC (Bld) 87.8 % 47-70 [facility] Potassium [Moles/Vol] 4.2 mmol/L 3.5-5.1 [facility] Protein [Mass/Vol] 7.7 g/dL 6.4-8.2 [facility] Sodium [Moles/Vol] 137 mmol/L 136-145 [facility] Triglyceride [Mass/Vol] 116 mg/dL <199 [facility] Comment on above: The drugs N-Acetylcy steine and Metamizole may falsely depress this assay.Serum Triglycerides Reference Interval Normal <150 mg/dL Borderline high 150 - 199 mg/dL High 200 - 499 mg/dL Very High > or = 500 mg/dL WBC (Bld) [#/Vol] 13.0 10*3/uL 4.4-11.0 [facility] Blood erythrocytes count (nu mber/volume)Ordered By: Leoncio Jorge on 03-09-2023 RBC (Bld) [#/Vol] 4.13 10*6/uL 4.2-5.4 [facility] Blood erythrocytes count (nu mber/volume)Ordered By: Tong Ayala on 03-09-2023 RBC (Bld) [#/Vol] 4.02 10*6/uL 4.2-5.4 [facility] Blood hemoglobin measurement (mass/volume)Ordered By: Leoncio Jorge on 03-09-2023 Hemoglobin (Bld) [Mass/Vol] 12.3 g/dL 12.0-15.0 [facility] Blood hemoglobin measurement (mass/volume)Ordered By: Tong Ayala on 03-09-2023 Hemoglobin (Bld) [Mass/Vol] 11.9 g/dL 12.0-15.0 [facility] Blood lymphocytes/100 leukoc ytesOrdered By: Leoncio Jorge on 03-09-2023 Lymphocytes/100 WBC (Bld) 14.5 % - [facility] Blood lymphocytes/100 leukoc ytesOrdered By: Chalon Lucy on 03-09-2023 Lymphocytes/100 WBC (Bld) 7.0 % - [facility] Blood monocytes/100 leukocyt esOrdered By: Leoncio Jorge on 03-09-2023 Monocytes/100 WBC (Bld) 7.4 % 0-10 [facility] Blood monocytes/100 leukocyt esOrdered By: Tong Lucy on 03-09-2023 Monocytes/100 WBC (Bld) 3.8 % 0-10 [facility] Blood platelet mean volumeOr dered By: Leoncio Jorge on 03-09-2023 Platelet mean volume (Bld) [Entitic vol] 9.7 fL 6.2-12.0 [facility] Blood platelet mean volumeOr dered By: Tong Lucy on 03-09-2023 Platelet mean volume (Bld) [Entitic vol] 10.3 fL 6.2-12.0 [facility] Determination of erythrocyte mean corpuscular volume (MCV)Ordered By: Leoncio Jorge on 03-09-2023 MCV (RBC) [Entitic vol] 90.1 fL 81-99 [facility] Determination of erythrocyte mean corpuscular volume (MCV)Ordered By: Tong Lucy on 03-09-2023 MCV (RBC) [Entitic vol] 92.5 fL 81-99 [facility] Hematocrit Auto (Bld) [Volum e fraction]Ordered By: Leoncio Jorge on 03-09-2023 Hematocrit (Bld) [Volume fraction] 37.2 % 37-47 [facility] Hematocrit Auto (Bld) [Volum e fraction]Ordered By: Tong Lucy on 03-09-2023 Hematocrit (Bld) [Volume fraction] 37.2 % 37-47 [facility] Laboratory - Chemistry and C hemistry - challengeOrdered By: Tong Ayala on 03-09-2023 ALP [Catalytic activity/Vol] 128 U/L 45-117 [facility] ALT [Catalytic activity/Vol] 51 U/L 13-56 [facility] CO2 [Moles/Vol] 21.0 mmol/L 21.0-32.0 [facility] Globulin (S) [Mass/Vol] 4.0 g/dL 2.2-4.2 [facility] Urea nitrogen/Creatinine [Mass ratio] 16.5 mg/mg 10-20 [facility] Laboratory - Hematology and Cell countsOrdered By: Leoncio Jorge on 03-09-2023 Erythrocyte distribution width (RBC) [Entitic vol] 44.0 fL 35.1-43.9 [facility] Erythrocyte distribution width (RBC) [Ratio] 13.4 % 11.6-14.6 [facility] Immature granulocytes/100 WBC (Bld) 0.400 % 0.0-0.9 [facility] Comment on above: IG% - Immature Granu locytes (promyelocytes, myelocytes and metamyelocytes) > 1% indicates that a LEFT SHIFT is Present. MCH (RBC) [Entitic mass] 29.8 pg 27.0-32.0 [facility] Nucleated RBC/100 WBC (Bld) [Ratio] 0 % 0-5 [facility] Laboratory - Hematology and Cell countsOrdered By: Tong Ayala on 03-09-2023 Erythrocyte distribution width (RBC) [Entitic vol] 45.7 fL 35.1-43.9 [facility] Erythrocyte distribution width (RBC) [Ratio] 13.4 % 11.6-14.6 [facility] Immature granulocytes/100 WBC (Bld) 0.800 % 0.0-0.9 [facility] Comment on above: IG% - Immature Granu locytes (promyelocytes, myelocytes and metamyelocytes) > 1% indicates that a LEFT SHIFT is Present. MCH (RBC) [Entitic mass] 29.6 pg 27.0-32.0 [facility] Nucleated RBC/100 WBC (Bld) [Ratio] 0 % 0-5 [facility] MCHC Auto (RBC) [Mass/Vol]Or dered By: Leoncio Jorge on 03-09-2023 MCHC (RBC) [Mass/Vol] 33.1 g/dL 32-36 [facility] MCHC Auto (RBC) [Mass/Vol]Or dered By: Tong Ayala on 03-09-2023 MCHC (RBC) [Mass/Vol] 32.0 g/dL 32-36 [facility] No Panel InformationOrdered By: Leoncio Jorge on 03-09-2023 Troponin I High Sensitivity 30729 pg/mL 3.0-54.0 [facility] Comment on above: Critical Result(s) C alled at: 22:54:07 03/09/2023 by: Agnieszka Rosario to Chas[facility]. Results read back by same. Please Note: New Test Units and Gender Specific Reference Ranges. For more information see Policy Stat Procedure [place] High Sensitivity Troponin (TNIH) and attachments. No Panel InformationOrdered By: Jon Jacome on 03-09-2023 Activated Clotting Time 190 sec 74-137 [facility] No Panel InformationOrdered By: Tong Ayala on 03-09-2023 Estimated GFR (MDRD) Amer 64 mL/min >60 [facility] Comment on above: GFR Calc Estimated GFR (MDRD) Non-Af Amer 53 mL/min >60 [facility] Comment on above: Non- GFR Calc Thyroid Stimulating Hormone (TSH) 0.43 uIU/mL 0.358-3.74 [facility] Troponin I High Sensitivity 938 pg/mL 3.0-54.0 [facility] Comment on above: Critical Result(s) C alled at: 18:55:02 03/09/2023 by: Agnieszka Orozco. Results read back by same. Please Note: New Test Units and Gender Specific Reference Ranges. For more information see Policy Stat Procedure [place] High Sensitivity Troponin (TNIH) and attachments. Platelets bldOrdered By: Leoncio Jorge on 03-09-2023 Platelets (Bld) [#/Vol] 362 10*3/uL 150-450 [facility] Platelets bldOrdered By: Betty Ayala on 03-09-2023 Platelets (Bld) [#/Vol] 353 10*3/uL 150-450 [facility] Serum or plasma albumin peng urement (mass/volume)Ordered By: Tong Ayala on 03-09-2023 Albumin [Mass/Vol] 3.7 g/dL 3.2-5.0 [facility] Serum or plasma albumin/glob ulin mass ratioOrdered By: Tong Ayala on 03-09-2023 Albumin/Globulin [Mass ratio] 0.9 {ratio} 0.9-2.4 [facility] Serum or plasma calcium peng urement (mass/volume)Ordered By: Tong Ayala on 03-09-2023 Calcium [Mass/Vol] 8.5 mg/dL 8.5-10.1 [facility] Serum or plasma cholesterol in HDL measurement (mass/volume)Ordered By: Tong Ayala on 03-09-2023 Cholesterol in HDL [Mass/Vol] 58 mg/dL >40 [facility] Comment on above: The drugs N-Acetylcy steine and Metamizole may falsely depress this assay. Reference Range HDL <40 mg/dL Low HDL Cholesterol HDL >or= 60 mg/dL High HDL Cholesterol Serum or plasma cholesterol in VLDL measurement (mass/volume)Ordered By: Tong Ayala on 03-09-2023 Cholesterol in VLDL [Mass/Vol] 23 mg/dL 5-40 [facility] Serum or plasma creatinine m easurement (mass/volume)Ordered By: Tong Ayala on 03-09-2023 Creatinine [Mass/Vol] 1.09 mg/dL 0.55-1.02 [facility] Comment on above: The validity of the calculated GFR & GFRAA in patients over 70 years has not been determined. Clinical correlation is essential. Serum or plasma low density lipoprotein (LDL) cholesterol measurement (mass/volume)Ordered By: Tong Ayala on 03-09-2023 Cholesterol in LDL [Mass/Vol] 117 mg/dL 0-130 [facility] Serum or plasma urea nitroge n measurement (mass/volume)Ordered By: Tong Ayala on 03-09-2023 Urea nitrogen [Mass/Vol] 18 mg/dL 7-18 [facility] Thin prep Papanicolaou smear with manual screeningOrdered By: Tong Ayala on 03-09-2023 Thin prep Papanicolaou smear with manual screening 39 U/L 15-37 [facility] Thin prep Papanicolaou smear with manual screening 11 5-15 [facility] Whole blood hemoglobin A1c/t otal hemoglobin ratio (mass fraction)Ordered By: Tong Ayala on 03-09-2023 HbA1c (Bld) [Mass fraction] 6.8 % 3.8-5.6 [facility] Comment on above: Normal < 5.7 % Predi abetic 5.7 - 6.4 % Diabetic >or= 6.5 % Please note range changes. Absolute lymphocyte countOrd ered By: Floyd Galdino on 01-31-2023 Lymphocytes Auto (Unsp spec) [#/Vol] 1.80 10*3/uL 0.83-4.51 [facility] Basophil percentageOrdered B y: Floyd Ahmadi on 01-31-2023 Basophils/100 WBC (Bld) 0.6 % 0-1 [facility] Bilirubin [Mass/Vol] 0.50 mg/dL 0.20-1.[address] [facility] Comment on above: For patients on eltr ombopag therapy, use of Dimension [place] TBIL is not recommended. Chloride [Moles/Vol] 103 mmol/L 98-[address] [facility] Eosinophils/100 WBC (Bld) 1.8 % 0-5 [facility] Glucose [Mass/Vol] 155 mg/dL 74-106 [facility] Comment on above: Fasting Glucose resu lt greater than or equal to 126 mg/dL suggests DIABETES MELLITUS per A.D.A. criteria. LDH [Catalytic activity/Vol] 176 U/L 84-246 [facility] Neutrophils (Bld) [#/Vol] 6.0 10*3/uL 2.0-7.7 [facility] Neutrophils/100 WBC (Bld) 68.3 % 47-70 [facility] Potassium [Moles/Vol] 4.0 mmol/L 3.5-5.1 [facility] Protein [Mass/Vol] 7.7 g/dL 6.4-8.2 [facility] Sodium [Moles/Vol] 137 mmol/L 136-145 [facility] WBC (Bld) [#/Vol] 8.8 10*3/uL 4.4-11.0 [facility] Blood erythrocytes count (nu mber/volume)Ordered By: Floyd Ahmadi on 01-31-2023 RBC (Bld) [#/Vol] 4.05 10*6/uL 4.2-5.4 [facility] Blood hemoglobin measurement (mass/volume)Ordered By: Floyd Ahmadi on 01-31-2023 Hemoglobin (Bld) [Mass/Vol] 12.1 g/dL 12.0-15.0 [facility] Blood lymphocytes/100 leukoc ytesOrdered By: Floyd Ahmadi on 01-31-2023 Lymphocytes/100 WBC (Bld) 20.4 % 19-41 [facility] Blood monocytes/100 leukocyt esOrdered By: Floyd Ahmadi on 01-31-2023 Monocytes/100 WBC (Bld) 8.6 % 0-10 [facility] Blood platelet mean volumeOr dered By: Floyd Ahmadi on 01-31-2023 Platelet mean volume (Bld) [Entitic vol] 9.9 fL 6.2-12.0 [facility] Determination of erythrocyte mean corpuscular volume (MCV)Ordered By: Floyd Ahmadi on 01-31-2023 MCV (RBC) [Entitic vol] 91.4 fL 81-99 [facility] Hematocrit Auto (Bld) [Volum e fraction]Ordered By: Floyd Ahmadi on 01-31-2023 Hematocrit (Bld) [Volume fraction] 37.0 % 37-47 [facility] Laboratory - Chemistry and C hemistry - challengeOrdered By: Floyd Ahmadi on 01-31-2023 ALP [Catalytic activity/Vol] 135 U/L 45-117 [facility] ALT [Catalytic activity/Vol] 43 U/L 13-56 [facility] CO2 [Moles/Vol] 27.0 mmol/L 21.0-32.0 [facility] Globulin (S) [Mass/Vol] 3.8 g/dL 2.2-4.2 [facility] Urea nitrogen/Creatinine [Mass ratio] 16.8 mg/mg 10-20 [facility] Laboratory - Hematology and Cell countsOrdered By: Floyd Ahmadi on 01-31-2023 Erythrocyte distribution width (RBC) [Entitic vol] 44.2 fL 35.1-43.9 [facility] Erythrocyte distribution width (RBC) [Ratio] 13.2 % 11.6-14.6 [facility] Immature granulocytes/100 WBC (Bld) 0.300 % 0.0-0.9 [facility] Comment on above: IG% - Immature Granu locytes (promyelocytes, myelocytes and metamyelocytes) > 1% indicates that a LEFT SHIFT is Present. MCH (RBC) [Entitic mass] 29.9 pg 27.0-32.0 [facility] Nucleated RBC/100 WBC (Bld) [Ratio] 0 % 0-5 [facility] MCHC Auto (RBC) [Mass/Vol]Or dered By: Floyd Ahmadi on 01-31-2023 MCHC (RBC) [Mass/Vol] 32.7 g/dL 32-36 [facility] No Panel InformationOrdered By: Floyd Ahmadi on 01-31-2023 Estimated Creatinine Clearance Calc 44.02 ml/min [facility] Estimated GFR (MDRD) Amer 65 mL/min >60 [facility] Comment on above: GFR Calc Estimated GFR (MDRD) Non-Af Amer 54 mL/min >60 [facility] Comment on above: Non- GFR Calc Platelets bldOrdered By: Giovani Ahmadi on 01-31-2023 Platelets (Bld) [#/Vol] 349 10*3/uL 150-450 [facility] Serum or plasma albumin peng urement (mass/volume)Ordered By: Floyd Ahmadi on 01-31-2023 Albumin [Mass/Vol] 3.9 g/dL 3.2-5.0 [facility] Serum or plasma albumin/glob ulin mass ratioOrdered By: Floyd Ahmadi on 01-31-2023 Albumin/Globulin [Mass ratio] 1.0 {ratio} 0.9-2.4 [facility] Serum or plasma calcium peng urement (mass/volume)Ordered By: Floyd Ahmadi on 01-31-2023 Calcium [Mass/Vol] 9.0 mg/dL 8.5-10.1 [facility] Serum or plasma creatinine m easurement (mass/volume)Ordered By: Floyd Ahmadi on 01-31-2023 Creatinine [Mass/Vol] 1.07 mg/dL 0.55-1.02 [facility] Comment on above: The validity of the calculated GFR & GFRAA in patients over 70 years has not been determined. Clinical correlation is essential. Serum or plasma urea nitroge n measurement (mass/volume)Ordered By: Floyd Ahmadi on 01-31-2023 Urea nitrogen [Mass/Vol] 18 mg/dL 7-18 [facility] Thin prep Papanicolaou smear with manual screeningOrdered By: Floyd Ahmadi on 01-31-2023 Thin prep Papanicolaou smear with manual screening 23 U/L 15-37 [facility] Thin prep Papanicolaou smear with manual screening 7 5-15 [facility] Basophil percentageOrdered B y: Akbar Farias on 10-06-2022 Bilirubin [Mass/Vol] 0.50 mg/dL 0.20-1.[address] [facility] Comment on above: For patients on eltr ombopag therapy, use of Dimension [place] TBIL is not recommended. Chloride [Moles/Vol] 104 mmol/L 98-[address] [facility] Glucose [Mass/Vol] 117 mg/dL 74-106 [facility] Comment on above: Fasting Glucose resu lt from 100 to 125 mg/dL suggests IMPAIRED HOMEOSTASIS per A.D.A. criteria. Potassium [Moles/Vol] 4.3 mmol/L 3.5-5.1 [facility] Comment on above: Slight Hemolysis, Re sult may be falsely increased. Protein [Mass/Vol] 7.5 g/dL 6.4-8.2 [facility] Sodium [Moles/Vol] 136 mmol/L 136-145 [facility] Laboratory - Chemistry and C hemistry - challengeOrdered By: Akbar Farias on 10-06-2022 ALP [Catalytic activity/Vol] 123 U/L 45-117 [facility] ALT [Catalytic activity/Vol] 59 U/L 13-56 [facility] CO2 [Moles/Vol] 25.0 mmol/L 21.0-32.0 [facility] Globulin (S) [Mass/Vol] 3.5 g/dL 2.2-4.2 [facility] Urea nitrogen/Creatinine [Mass ratio] 19.6 mg/mg 10-20 [facility] No Panel InformationOrdered By: Akbar Farias on 10-06-2022 Estimated GFR (MDRD) Amer 69 mL/min >60 [facility] Comment on above: GFR Calc Estimated GFR (MDRD) Non-Af Amer 57 mL/min >60 [facility] Comment on above: Non- GFR Calc Thyroid Stimulating Hormone (TSH) 0.41 uIU/mL 0.358-3.74 [facility] Vitamin D 25-Hydroxy 48.2 ng/mL [facility] Comment on above: Vitamin D 25(OH) Sta tus Range Deficiency <20 ng/mL (50nmol/L) Insufficiency 20 - 30 ng/mL (50 - 75 nmol/L) Sufficiency 30 - 100 ng/mL (75 - 250 nmol/L) Toxicity >100 ng/mL (>250 nmol/L) Serum or plasma albumin peng urement (mass/volume)Ordered By: Akbar Farias on 10-06-2022 Albumin [Mass/Vol] 4.0 g/dL 3.2-5.0 [facility] Serum or plasma albumin/glob ulin mass ratioOrdered By: Akbar Farias on 10-06-2022 Albumin/Globulin [Mass ratio] 1.1 {ratio} 0.9-2.4 [facility] Serum or plasma calcium peng urement (mass/volume)Ordered By: Akbar Farias on 10-06-2022 Calcium [Mass/Vol] 9.2 mg/dL 8.5-10.1 [facility] Serum or plasma creatinine m easurement (mass/volume)Ordered By: Akbar Farias on 10-06-2022 Creatinine [Mass/Vol] 1.02 mg/dL 0.55-1.02 [facility] Comment on above: The validity of the calculated GFR & GFRAA in patients over 70 years has not been determined. Clinical correlation is essential. Serum or plasma urea nitroge n measurement (mass/volume)Ordered By: Akbar Farias on 10-06-2022 Urea nitrogen [Mass/Vol] 20 mg/dL 7-18 [facility] Thin prep Papanicolaou smear with manual screeningOrdered By: Akbar Farias on 10-06-2022 Thin prep Papanicolaou smear with manual screening 37 U/L 15-37 [facility] Comment on above: Slight Hemolysis, Re sult may be falsely increased. Thin prep Papanicolaou smear with manual screening 7 5-15 [facility] Basophil percentageOrdered B y: Dr. Farias on 04-08-2022 Chloride [Moles/Vol] 110 mmol/L 98-[address] [facility] Glucose [Mass/Vol] 137 mg/dL 74-106 [facility] Comment on above: Fasting Glucose resu lt greater than or equal to 126 mg/dL suggests DIABETES MELLITUS per A.D.A. criteria. Potassium [Moles/Vol] 4.2 mmol/L 3.5-5.1 [facility] Sodium [Moles/Vol] 141 mmol/L 136-145 [facility] Laboratory - Chemistry and C hemistry - challengeOrdered By: Dr. Farias on 04-08-2022 CO2 [Moles/Vol] 24.0 mmol/L 21.0-32.0 [facility] Free T4 [Mass/Vol] 1.37 ng/dL 0.76-1.46 [facility] Urea nitrogen/Creatinine [Mass ratio] 22.3 mg/mg 10-20 [facility] No Panel InformationOrdered By: Dr. Farias on 04-08-2022 Estimated GFR (MDRD) Amer 68 mL/min >60 [facility] Comment on above: GFR Calc Estimated GFR (MDRD) Non-Af Amer 56 mL/min >60 [facility] Comment on above: Non- GFR Calc Thyroid Stimulating Hormone (TSH) 0.97 uIU/mL 0.358-3.74 [facility] Serum or plasma calcium peng urement (mass/volume)Ordered By: Dr. Farias on 04-08-2022 Calcium [Mass/Vol] 8.5 mg/dL 8.5-10.1 [facility] Serum or plasma creatinine m easurement (mass/volume)Ordered By: Dr. Farias on 04-08-2022 Creatinine [Mass/Vol] 1.03 mg/dL 0.55-1.02 [facility] Comment on above: The validity of the calculated GFR & GFRAA in patients over 70 years has not been determined. Clinical correlation is essential. Serum or plasma urea nitroge n measurement (mass/volume)Ordered By: Dr. Farias on 04-08-2022 Urea nitrogen [Mass/Vol] 23 mg/dL 7-18 [facility] Thin prep Papanicolaou smear with manual screeningOrdered By: Dr. Farias on 04-08-2022 Thin prep Papanicolaou smear with manual screening 7 5-15 [facility] Absolute lymphocyte countOrd ered By: Dr. Ahmadi on 02-03-2022 Lymphocytes Auto (Unsp spec) [#/Vol] 1.41 10*3/uL 0.83-4.51 [facility] Basophil percentageOrdered B y: Dr. Ahmadi on 02-03-2022 Basophils/100 WBC (Bld) 0.8 % 0-1 [facility] Bilirubin [Mass/Vol] 0.40 mg/dL 0.20-1.[address] [facility] Comment on above: For patients on eltr ombopag therapy, use of Dimension [place] TBIL is not recommended. Chloride [Moles/Vol] 104 mmol/L 98-[address] [facility] Eosinophils/100 WBC (Bld) 1.5 % 0-5 [facility] Glucose [Mass/Vol] 214 mg/dL 74-106 [facility] Comment on above: Glucose result great er than or equal to 200 mg/dLsuggests DIABETES MELLITUS per A.D.A. criteria. Neutrophils (Bld) [#/Vol] 5.4 10*3/uL 2.0-7.7 [facility] Neutrophils/100 WBC (Bld) 72.8 % 47-70 [facility] Potassium [Moles/Vol] 4.1 mmol/L 3.5-5.1 [facility] Protein [Mass/Vol] 7.4 g/dL 6.4-8.2 [facility] Sodium [Moles/Vol] 138 mmol/L 136-145 [facility] WBC (Bld) [#/Vol] 7.5 10*3/uL 4.4-11.0 [facility] Blood erythrocytes count (nu mber/volume)Ordered By: Dr. Ahmadi on 02-03-2022 RBC (Bld) [#/Vol] 4.05 10*6/uL 4.2-5.4 [facility] Blood hemoglobin measurement (mass/volume)Ordered By: Dr. Ahmadi on 02-03-2022 Hemoglobin (Bld) [Mass/Vol] 12.5 g/dL 12.0-15.0 [facility] Blood lymphocytes/100 leukoc ytesOrdered By: Dr. Ahmadi on 02-03-2022 Lymphocytes/100 WBC (Bld) 18.9 % 19-41 [facility] Blood monocytes/100 leukocyt esOrdered By: Dr. Ahmadi on 02-03-2022 Monocytes/100 WBC (Bld) 5.6 % 0-10 [facility] Blood platelet mean volumeOr dered By: Dr. Ahmadi on 02-03-2022 Platelet mean volume (Bld) [Entitic vol] 10.0 fL 6.2-12.0 [facility] Determination of erythrocyte mean corpuscular volume (MCV)Ordered By: Dr. Ahmadi on 02-03-2022 MCV (RBC) [Entitic vol] 91.1 fL 81-99 [facility] Hematocrit Auto (Bld) [Volum e fraction]Ordered By: Dr. Ahmadi on 02-03-2022 Hematocrit (Bld) [Volume fraction] 36.9 % 37-47 [facility] Laboratory - Chemistry and C hemistry - challengeOrdered By: Dr. Ahmadi on 02-03-2022 ALP [Catalytic activity/Vol] 127 U/L 45-117 [facility] ALT [Catalytic activity/Vol] 42 U/L 13-56 [facility] CO2 [Moles/Vol] 27.0 mmol/L 21.0-32.0 [facility] Globulin (S) [Mass/Vol] 3.5 g/dL 2.2-4.2 [facility] Urea nitrogen/Creatinine [Mass ratio] 15.9 mg/mg 10-20 [facility] Laboratory - Hematology and Cell countsOrdered By: Dr. Ahmadi on 02-03-2022 Erythrocyte distribution width (RBC) [Entitic vol] 44.3 fL 35.1-43.9 [facility] Erythrocyte distribution width (RBC) [Ratio] 13.2 % 11.6-14.6 [facility] Immature granulocytes/100 WBC (Bld) 0.400 % 0.0-0.9 [facility] Comment on above: IG% - Immature Granu locytes (promyelocytes, myelocytes and metamyelocytes) > 1% indicates that a LEFT SHIFT is Present. MCH (RBC) [Entitic mass] 30.9 pg 27.0-32.0 [facility] Nucleated RBC/100 WBC (Bld) [Ratio] 0 % 0-5 [facility] MCHC Auto (RBC) [Mass/Vol]Or dered By: Dr. Ahmadi on 02-03-2022 MCHC (RBC) [Mass/Vol] 33.9 g/dL 32-36 [facility] No Panel InformationOrdered By: Dr. Ahmadi on 02-03-2022 Estimated Creatinine Clearance Calc 42.28 ml/min [facility] Estimated GFR (MDRD) Amer 61 mL/min >60 [facility] Comment on above: GFR Calc Estimated GFR (MDRD) Non-Af Amer 51 mL/min >60 [facility] Comment on above: Non- GFR Calc Platelets bldOrdered By: Dr. Ahmadi on 02-03-2022 Platelets (Bld) [#/Vol] 293 10*3/uL 150-450 [facility] Serum or plasma albumin peng urement (mass/volume)Ordered By: Dr. Ahmadi on 02-03-2022 Albumin [Mass/Vol] 3.9 g/dL 3.2-5.0 [facility] Serum or plasma albumin/glob ulin mass ratioOrdered By: Dr. Ahmadi on 02-03-2022 Albumin/Globulin [Mass ratio] 1.1 {ratio} 0.9-2.4 [facility] Serum or plasma calcium peng urement (mass/volume)Ordered By: Dr. Ahmadi on 02-03-2022 Calcium [Mass/Vol] 9.2 mg/dL 8.5-10.1 [facility] Serum or plasma creatinine m easurement (mass/volume)Ordered By: Dr. Ahmadi on 02-03-2022 Creatinine [Mass/Vol] 1.13 mg/dL 0.55-1.02 [facility] Comment on above: The validity of the calculated GFR & GFRAA in patients over 70 years has not been determined. Clinical correlation is essential. Serum or plasma urea nitroge n measurement (mass/volume)Ordered By: Dr. Ahmadi on 02-03-2022 Urea nitrogen [Mass/Vol] 18 mg/dL 7-18 [facility] Thin prep Papanicolaou smear with manual screeningOrdered By: Dr. Ahmadi on 02-03-2022 Thin prep Papanicolaou smear with manual screening 21 U/L 15-37 [facility] Thin prep Papanicolaou smear with manual screening 7 5-15 [facility] Thin prep Papanicolaou smear with manual screening 163 U/L 84-246 [facility] Basophil percentageOrdered B y: Dr. Farias on 01-07-2022 Chloride [Moles/Vol] 106 mmol/L 98-[address] [facility] Glucose [Mass/Vol] 147 mg/dL 74-106 [facility] Comment on above: Fasting Glucose resu lt greater than or equal to 126 mg/dL suggests DIABETES MELLITUS per A.D.A. criteria. Potassium [Moles/Vol] 4.3 mmol/L 3.5-5.1 [facility] Sodium [Moles/Vol] 137 mmol/L 136-145 [facility] Laboratory - Chemistry and C hemistry - challengeOrdered By: Dr. Farias on 01-07-2022 CO2 [Moles/Vol] 26.0 mmol/L 21.0-32.0 [facility] Free T4 [Mass/Vol] 1.51 ng/dL 0.76-1.46 [facility] Urea nitrogen/Creatinine [Mass ratio] 22.5 mg/mg 10-20 [facility] No Panel InformationOrdered By: Dr. Farias on 01-07-2022 Estimated GFR (MDRD) Amer 76 mL/min >60 [facility] Comment on above: GFR Calc Estimated GFR (MDRD) Non-Af Amer 63 mL/min >60 [facility] Comment on above: Non- GFR Calc Thyroid Stimulating Hormone (TSH) 0.41 uIU/mL 0.358-3.74 [facility] Serum or plasma calcium peng urement (mass/volume)Ordered By: Dr. Farias on 01-07-2022 Calcium [Mass/Vol] 8.9 mg/dL 8.5-10.1 [facility] Serum or plasma creatinine m easurement (mass/volume)Ordered By: Dr. Farias on 01-07-2022 Creatinine [Mass/Vol] 0.93 mg/dL 0.55-1.02 [facility] Comment on above: The validity of the calculated GFR & GFRAA in patients over 70 years has not been determined. Clinical correlation is essential. Serum or plasma urea nitroge n measurement (mass/volume)Ordered By: Dr. Farias on 01-07-2022 Urea nitrogen [Mass/Vol] 21 mg/dL 7-18 [facility] Thin prep Papanicolaou smear with manual screeningOrdered By: Dr. Farias on 01-07-2022 Thin prep Papanicolaou smear with manual screening 5 5-15 [facility] Cervical or vagninal specime n microscopic examination by cytology stain (reported asOrdered By: Dr. Bates on 01-05-2022 Cytology report Cyto stain Doc (Cvx/Vag) Comment . [facility] Comment on above: The Pap smear is [...] DNA Probe+sig amp Ql (Cvx) Negative Negative [facility] Comment on above: This nucleic acid am plification test detects fourteen high-risk HPV types (16,18,31,33,35,39,45,51,52,56,58,59,66,68)without differentiation.HPV Genotype ReflexCriteria not met, HPV Genotype not performed. Laboratory - CytologyOrdered By: Dr. Bates on 01-05-2022 Cigarette Examiner Cyto stain Nom (Cvx/Vag) [ID] Comment . [facility] Comment on above: Mal Scanlon, Diet Kitchen Cook (ASCP) Laboratory - Miscellaneous t estsOrdered By: Dr. Bates on 01-05-2022 Service comment (Unsp spec) [Interp] Comment . [facility] Comment on above: This liquid based Th inPrep(R) pap test was screened withthe use of an image guided system. Service comment (Unsp spec) [Interp] . . [facility] No Panel InformationOrdered By: Dr. Bates on 01-05-2022 Pathology report final diagnosis Narrative Comment . [facility] Comment on above: NEGATIVE FOR INTRAEP ITHELIAL LESION OR MALIGNANCY.CELLULAR CHANGES ASSOCIATED WITH INFLAMMATION ARE PRESENT.CELLULAR CHANGES ASSOCIATED WITH ATROPHY ARE PRESENT. Basophil percentageon 2021 Chloride [Moles/Vol] 106 mmol/L 98-[address] [facility] Work Phone: Glucose [Mass/Vol] 179 mg/dL 74-106 [facility] Work Phone: Comment on above: Fasting Glucose resu lt greater than or equal to 126 mg/dL suggests DIABETES MELLITUS per A.D.A. criteria. Potassium [Moles/Vol] 3.7 mmol/L 3.5-5.1 [facility] Work Phone: Sodium [Moles/Vol] 140 mmol/L 136-145 [facility] Work Phone: Laboratory - Chemistry and C hemistry - challengeon 10-05-2021 CO2 [Moles/Vol] 28.0 mmol/L 21.0-32.0 [facility] Work Phone: Free T4 [Mass/Vol] 1.00 ng/dL 0.76-1.46 [facility] Work Phone: Urea nitrogen/Creatinine [Mass ratio] 15.3 mg/mg 10-20 [facility] Work Phone: No Panel Informationon 10-05 Estimated GFR (MDRD) Amer 55 mL/min >60 [facility] Work Phone: Comment on above: GFR Calc Estimated GFR (MDRD) Non-Af Amer 46 mL/min >60 [facility] Work Phone: Comment on above: Non- GFR Calc Thyroid Stimulating Hormone (TSH) 7.78 uIU/mL 0.358-3.74 [facility] Work Phone: Serum or plasma calcium peng urement (mass/volume)on 10-05-2021 Calcium [Mass/Vol] 9.1 mg/dL 8.5-10.1 [facility] Work Phone: Serum or plasma creatinine m easurement (mass/volume)on 10-05-2021 Creatinine [Mass/Vol] 1.24 mg/dL 0.55-1.02 [facility] Work Phone: Comment on above: The validity of the calculated GFR & GFRAA in patients over 70 years has not been determined. Clinical correlation is essential. Serum or plasma urea nitroge n measurement (mass/volume)on 10-05-2021 Urea nitrogen [Mass/Vol] 19 mg/dL 7-18 [facility] Work Phone: Thin prep Papanicolaou smear with manual screeningon 10-05-2021 Thin prep Papanicolaou smear with manual screening 6 5-15 [facility] Work Phone: Erythrocyte distribution wid th standard deviationon 08-10-2017 Erythrocyte distribution width (RBC) [Entitic vol] 42.9 fL 35.1-43.9 [facility] Laboratory - Hematology and Cell countson 08-10-2017 Erythrocyte distribution width (RBC) [Ratio] 12.9 % 11.6-14.6 [facility] Total cell counton 8 Cells counted [employer] (Bld/Tiss) [#] Not Reportable [facility] Vital Signs Date Time Vital Sign Value Performing Clinician Faci lity 12-20-2024 13:53-0400 Body height 165.[address] Teodoro Farias MD Work Phone: [facility] 12-20-2024 13:53-0400 Body mass index (BMI) [Ratio] 26.9 kg/m2 Dr. Teodoro Farias MD Work Phone: [facility] 12-20-2024 13:53-0400 Body weight 73.[address] Teodoro Farias MD Work Phone: [facility] 12-20-2024 13:53-0400 Diastolic blood pressure 70 mm[Hg] Dr. Teodoro Farias MD Work Phone: [facility] 12-20-2024 13:53-0400 Heart rate 75 /min Dr. Teodoro Farias MD Work Phone: 9(739)433-837016 [place] [address] 12-20-2024 13:53-0400 Respiratory rate 16 /min Dr. Teodoro Farias MD Work Phone: 1(016)956-877416 [place] [address] 12-20-2024 13:53-0400 Systolic blood pressure 125 mm[Hg] Dr. Teodoro Farias MD Work Phone: 2(346)537-478016 [place] [address] 09-11-2024 07:55-0400 Body temperature 98.1 [degF] Dr. Teodoro Farias MD Work Phone: 1(603)567-035516 [place] [address] 09-11-2024 07:55-0400 Diastolic blood pressure 60 mm[Hg] Dr. Teodoro Farias MD Work Phone: 2(011)778-087816 [place] [address] 09-11-2024 07:55-0400 Heart rate 76 /min Dr. Teodoro Farias MD Work Phone: 8(095)211-734816 [place] [address] 09-11-2024 07:55-0400 Respiratory rate 16 /min Dr. Teodoro Farias MD Work Phone: 8(773)569-247116 [place] [address] 09-11-2024 07:55-0400 SaO2% (BldA) [Mass fraction] 93 % Dr. Teodoro Farias MD Work Phone: [facility] 09-11-2024 07:55-0400 Systolic blood pressure 137 mm[Hg] Dr. Teodoro Farias MD Work Phone: 5(146)429-682916 [place] [address] 09-10-2024 15:44-0400 Body height 165.[address] Teodoro Farias MD Work Phone: 2(891)629-114116 [place] [address] 09-10-2024 15:44-0400 Body mass index (BMI) [Ratio] 27.2 kg/m2 Dr. Teodoro Farias MD Work Phone: [facility] 09-10-2024 15:44-0400 Body weight 74.[address] Teodoro Farias MD Work Phone: 0(583)903-502316 [place] [address] 09-10-2024 14:45-0400 Inhaled oxygen flow rate 4 L/min Dr. Teodoro Farias MD Work Phone: 8(847)340-446616 [place] [address] 06-05-2024 14:25-0400 Body height 165.[address] Teodoro Farias MD Work Phone: 7(922)548-901016 [place] [address] 06-05-2024 14:24-0400 Body mass index (BMI) [Ratio] 27.3 kg/m2 Dr. Teodoro Farias MD Work Phone: 0(158)536-908716 [place] [address] 06-05-2024 14:24-0400 Body weight 74.[address] Teodoro Farias MD Work Phone: 1(597)241-773516 [place] [address] 06-05-2024 14:24-0400 Diastolic blood pressure 79 mm[Hg] Dr. Teodoro Farias MD Work Phone: 6(212)594-902916 [place] [address] 06-05-2024 14:24-0400 Heart rate 87 /min Dr. Teodoro Farias MD Work Phone: 9(353)590-811216 [place] [address] 06-05-2024 14:24-0400 Respiratory rate 16 /min Dr. Teodoro Farias MD Work Phone: 3(908)857-585416 [place] [address] 06-05-2024 14:24-0400 Systolic blood pressure 123 mm[Hg] Dr. Teodoro Farias MD Work Phone: 5(169)453-575916 [place] [address] 07-04-2023 12:57-0400 Body height 165.[address] Teodoro Farias Work Phone: 4(881)420-216016 [place] [address] 07-04-2023 12:57-0400 Body mass index (BMI) [Ratio] 29.9 kg/m2 Dr. Teodoro Farias Work Phone: 5(630)580-965316 [place] [address] 07-04-2023 12:57-0400 Body weight 81.[address] Teodoro Farias Work Phone: [facility] 07-04-2023 12:57-0400 Diastolic blood pressure 73 mm[Hg] Dr. Teodoro Farias Work Phone: [facility] 07-04-2023 12:57-0400 Heart rate 69 /min Dr. Teodoro Farias Work Phone: [facility] 07-04-2023 12:57-0400 Respiratory rate 16 /min Dr. Teodoro Farias Work Phone: [facility] 07-04-2023 12:57-0400 Systolic blood pressure 134 mm[Hg] Dr. Teodoro Farias Work Phone: [facility] 06-06-2023 00:24-0400 Body weight 82.[address] Teodoro Farias Work Phone: [facility] 05-20-2023 08:36-0400 Body height 165.[address] Akbar Farias Work Phone: [facility] 05-20-2023 08:36-0400 Body weight 82.[address] Akbar Farias Work Phone: [facility] 04-22-2023 09:04-0500 Body height 165.[address] Akbar Farias Work Phone: [facility] 04-22-2023 09:04-0500 Body weight 82.[address] Akbar Farias Work Phone: [facility] 04-05-2023 10:23-0500 Diastolic blood pressure 50 mm[Hg] Dr. Akbar Farias Work Phone: [facility] 04-05-2023 10:23-0500 Heart rate 73 /min Dr. Akbar Farias Work Phone: [facility] 04-05-2023 10:23-0500 Systolic blood pressure 83 mm[Hg] Dr. Akbar Farias Work Phone: [facility] 04-05-2023 10:08-0500 Body height 165.[address] Akbar Farias Work Phone: [facility] 04-05-2023 10:08-0500 Body mass index (BMI) [Ratio] 29.9 kg/m2 Dr. Akbar Farias Work Phone: [facility] 04-05-2023 10:08-0500 Body weight 81.[address] Akbar Farias Work Phone: [facility] 04-05-2023 10:08-0500 Respiratory rate 18 /min Dr. Akbar Farias Work Phone: [facility] 03-22-2023 09:30-0500 Body mass index (BMI) [Ratio] 30.2 kg/m2 Dr. Akbar Farias Work Phone: [facility] 03-22-2023 09:30-0500 Body weight 82.[address] Akbar Farias Work Phone: [facility] 03-22-2023 09:15-0500 Body height 165.[address] Akbar Farias Work Phone: [facility] 03-22-2023 09:07-0500 Diastolic blood pressure 83 mm[Hg] Dr. Akbar Farias Work Phone: [facility] 03-22-2023 09:07-0500 Heart rate 87 /min Dr. Akbar Farias Work Phone: [facility] 03-22-2023 09:07-0500 SaO2% (BldA) [Mass fraction] 97 % Dr. Akbar Farias Work Phone: [facility] 03-22-2023 09:07-0500 Systolic blood pressure 148 mm[Hg] Dr. Akbar Farias Work Phone: [facility] 03-11-2023 12:58-0500 Body temperature 98.4 [degF] Dr. Akbar Farias Work Phone: [facility] 03-11-2023 12:58-0500 Diastolic blood pressure 86 mm[Hg] Dr. Akbar Farias Work Phone: [facility] 03-11-2023 12:58-0500 Heart rate 77 /min Dr. Akbar Farisa Work Phone: [facility] 03-11-2023 12:58-0500 Respiratory rate 18 /min Dr. Akbar Farias Work Phone: [facility] 03-11-2023 12:58-0500 SaO2% (BldA) [Mass fraction] 98 % Dr. Akbar Farias Work Phone: [facility] 03-11-2023 12:58-0500 Systolic blood pressure 145 mm[Hg] Dr. Akbar Farias Work Phone: [facility] 03-11-2023 03:01-0500 Body mass index (BMI) [Ratio] 29.7 kg/m2 Dr. Akbar Farias Work Phone: [facility] 03-11-2023 03:01-0500 Body weight 81.[address] Akbar Farias Work Phone: [facility] 03-09-2023 21:33-0500 Body height 165.[address] Akbar Farias Work Phone: [facility] 03-09-2023 20:01-0500 Diastolic blood pressure 86 mm[Hg] Dr. Akbar Farias Work Phone: [facility] 03-09-2023 20:01-0500 Systolic blood pressure 141 mm[Hg] Dr. Akbar Farias Work Phone: [facility] 03-09-2023 19:47-0500 Heart rate 110 /min Dr. Akbar Farias Work Phone: [facility] 03-09-2023 19:47-0500 Respiratory rate 17 /min Dr. Akbar Farias Work Phone: [facility] 03-09-2023 19:47-0500 SaO2% (BldA) [Mass fraction] 99 % Dr. Akbar Farias Work Phone: [facility] 03-09-2023 19:24-0500 Inhaled oxygen flow rate 2 L/min Dr. Akbar Farias Work Phone: [facility] 03-09-2023 19:21-0500 Body height 165.[address] Akbar Farias Work Phone: 6(519)063-928086 [place] [address] 03-09-2023 19:21-0500 Body mass index (BMI) [Ratio] 30.2 kg/m2 Dr. Akbar Farias Work Phone: 3(074)886-837539 [address] 03-09-2023 19:21-0500 Body temperature 97.9 [degF] Dr. Akbar Farias Work Phone: [facility] 03-09-2023 19:21-0500 Body weight 82.[address] Akbar Farias Work Phone: [facility] 01-31-2023 11:16-0500 Body mass index (BMI) [Ratio] 30.4 kg/m2 Dr. Akbar Farias Work Phone: 2(963)167-460986 [place] [address] 01-31-2023 11:16-0500 Body temperature 98.4 [degF] Dr. Akbar Farias Work Phone: [facility] 01-31-2023 11:16-0500 Body weight 83.[address] Akbar Farias Work Phone: [facility] 01-31-2023 11:16-0500 Diastolic blood pressure 61 mm[Hg] Dr. Akbar Farias Work Phone: [facility] 01-31-2023 11:16-0500 Heart rate 85 /min Dr. Akbar Farias Work Phone: [facility] 01-31-2023 11:16-0500 Respiratory rate 18 /min Dr. Akbar Farias Work Phone: [facility] 01-31-2023 11:16-0500 SaO2% (BldA) [Mass fraction] 96 % Dr. Akbar Farias Work Phone: 1(091)553-700586 [place] [address] 01-31-2023 11:16-0500 Systolic blood pressure 91 mm[Hg] Dr. Akbar Farias Work Phone: [facility] 02-03-2022 13:10-0500 Body height 165.[address] Akbar Farias Work Phone: 0(231)640-415116 [place] [address] 02-03-2022 13:03-0500 Body mass index (BMI) [Ratio] 30.4 kg/m2 Dr. Akbar Farias Work Phone: 5(275)819-016616 [place] [address] 02-03-2022 13:03-0500 Body temperature 98.2 [degF] Dr. Akbar Farias Work Phone: 9(316)434-525239 [address] 02-03-2022 13:03-0500 Body weight 83.[address] Akbar Farias Work Phone: 3(478)204-005239 [address] 02-03-2022 13:03-0500 Diastolic blood pressure 79 mm[Hg] Dr. Akbar Farias Work Phone: 4(887)635-250686 [place] [address] 02-03-2022 13:03-0500 Heart rate 84 /min Dr. Akbar Farias Work Phone: 8(761)291-430086 [place] [address] 02-03-2022 13:03-0500 Respiratory rate 16 /min Dr. Akbar Farias Work Phone: 8(026)097-128086 [place] [address] 02-03-2022 13:03-0500 SaO2% (BldA) [Mass fraction] 97 % Dr. Akbar Farias Work Phone: 7(715)973-534786 [place] [address] 02-03-2022 13:03-0500 Systolic blood pressure 147 mm[Hg] Dr. Akbar Farias Work Phone: [facility] 02-12-2020 13:53-0500 Body temperature 97.9 [degF] Dr. Akbar Farias Work Phone: [facility] 02-12-2020 13:53-0500 Body weight 80.[address] Akbar Farias Work Phone: [facility] 02-12-2020 13:53-0500 Diastolic blood pressure 72 mm[Hg] Dr. Akbar Farias Work Phone: [facility] 02-12-2020 13:53-0500 Heart rate 81 /min Dr. Akbar Farias Work Phone: [facility] 02-12-2020 13:53-0500 Respiratory rate 14 /min Dr. Akbar Farias Work Phone: [facility] 02-12-2020 13:53-0500 SaO2% (BldA) [Mass fraction] 97 % Dr. Akbar Farias Work Phone: [facility] 02-12-2020 13:53-0500 Systolic blood pressure 123 mm[Hg] Dr. Akbar Farias Work Phone: [facility] 08-14-2019 15:01-0400 Body mass index (BMI) [Ratio] 29.8 kg/m2 Dr. Akbar Farias Work Phone: [facility] Encounters Encounter Date Encounter Type Care Provider Facility Start: 12-26-2024 End: 12-26-2024 ambulatory Radha Hammonds Facility:[facility] Start: 12-20-2024 End: 12-20-[address] Radha Hammonds MD -[facility] Work Phone: Start: 12-20-2024 End: 12-20-2024 ambulatory Teodoro Farias Facility:[facility] Start: 10-17-2024 End: 10-17-[address] Teodoro Farias MD Work Phone: -Laboratory Specimen Start: 10-17-2024 End: 10-17-[address] Teodoro Farias MD -Laboratory Specimen Work Phone: Start: 10-17-2024 End: 10-17-2024 ambulatory Teodoro Farias Facility:[facility] Start: 09-20-2024 Encounter for other preprocedural examination Reginamary anne Sawyer [facility] Start: 09-11-2024 Non-patient / Non-visit Dr. Lisbeth Lopez MD -[facility] Work Phone: Start: 09-10-2024 Non-patient / Non-visit Dr. Regina tai MD -[facility] Work Phone: Start: 09-10-2024 ambulatory Regina [place] Facility:[facility] Start: 09-10-2024 End: 09-11-2024 ambulatory Lisbeth Lopez Facility:[facility] Start: 09-10-2024 End: 09-11-2024 Evaluation and management of inpatient Dr. Corey Mckeon MD -[facility] Work Phone: Start: 09-10-2024 End: 09-11-[address] Teodoro Farias MD Work Phone: -[facility] Start: 08-20-2024 End: 08-20-[address] Teodoro Farias MD Work Phone: [facility] Work Phone: Start: 08-20-2024 End: 08-20-[address] Corey Mckeon MD -Cat Scan [facility] Work Phone: Start: 08-20-2024 End: 08-20-2024 ambulatory Corey Mckeon Facility:[facility] Start: 08-16-2024 End: 08-16-2024 ambulatory Ernesto Tovar Facility:[facility] Start: 08-16-2024 End: 08-16-2024 Non-patient / Non-visit Dr. Ernesto Tovar MD -[facility] Work Phone: Start: 07-10-2024 End: 07-10-[address] Teodoro Farias MD Work Phone: [facility] Work Phone: Start: 07-10-2024 End: 07-10-[address] Teodoro Farias MD -Laboratory, [facility] Start: 07-10-2024 End: 07-10-2024 ambulatory Teodoro Farias Facility:[facility] Start: 06-29-2024 ambulatory Radha Hammonds Facility:[facility] Start: 06-29-2024 Non-patient / Non-visit Dr. Radha ruff MD -[facility] Start: 06-29-2024 End: 06-29-[address] Radha Hammonds MD -Cardiovascular Services Work Phone: Start: 06-29-2024 End: 06-29-2024 ambulatory Teodoro Farias Facility:[facility] Start: 06-11-2024 End: 06-11-[address] Teodoro Farias MD Work Phone: [facility] Work Phone: Start: 06-11-2024 End: 06-11-[address] Radha Hammonds MD -Laboratory Work Phone: Start: 06-11-2024 End: 06-11-2024 ambulatory Teodoro Farias Facility:[facility] Start: 06-05-2024 End: 06-05-[address] Radha Hammonds MD -[facility] Work Phone: Start: 06-05-2024 End: 06-05-2024 ambulatory Teodoro Farias Facility:[facility] Start: 02-15-2024 ambulatory Flip Dinora Faci lity:[facility] Start: 02-15-2024 End: 02-15-2024 [facility] Start: 02-13-2024 End: 02-13-2024 ambulatory [place] Facility:[facility] Start: 02-09-2024 End: 02-09-2024 ambulatory [place] Din[place] Facility:[facility] Start: 02-09-2024 End: 02-09-2024 ambulatory Teodoro Farias Facility:[facility] Start: 01-26-2024 End: 01-26-2024 ambulatory Teodoro Farias Facility:[facility] Start: 01-16-2024 ambulatory Self Referred Facility: [facility] Start: 01-02-2024 End: 01-05-2024 ambulatory Self Referred Facility:[facility] Start: 07-05-2023 Non-patient / Non-visit Dr. Kashif Farias Work Phone: [facility] Start: 07-05-2023 End: 07-05-[address] Teodoro Farias Work Phone: [facility] Work Phone: Start: 07-05-2023 End: 07-05-[address] Teodoro Farias Work Phone: [facility]-Cardiovascul ar Services Work Phone: Start: 07-04-2023 End: 07-04-[address] Teodoro Farias Work Phone: [facility] Work Phone: Start: 06-17-2023 End: 07-05-[address] Teodoro Farias Work Phone: [facility] Work Phone: Start: 06-17-2023 End: 07-05-[address] Teodoro Farias Work Phone: [facility]-Cardiac Rehab Work Phone: Start: 06-03-2023 End: 06-05-[address] Akbar Farias Work Phone: [facility] Work Phone: Start: 06-03-2023 End: 06-05-[address] Akbar Farias Work Phone: [facility]-Cardiac Rehab Work Phone: Start: 05-04-2023 End: 05-05-[address] Akbar Farias Work Phone: [facility] Work Phone: Start: 05-04-2023 End: 05-05-[address] Akbar Farias Work Phone: [facility]-Cardiac Rehab Work Phone: Start: 04-06-2023 End: 04-06-[address] Akbar Farias Work Phone: [facility] Work Phone: Start: 04-06-2023 End: 04-06-[address] Akbar Farias Work Phone: [facility]-Cardiac Rehab Work Phone: Start: 04-05-2023 End: 04-05-[address] Akbar Farias Work Phone: [facility] Work Phone: Start: 03-22-2023 End: 03-22-[address] Akbar Farias Work Phone: [facility] Work Phone: Start: 03-22-2023 End: 03-22-[address] Akbar Farias Work Phone: [facility]-Cardiac Rehab Work Phone: Start: 03-17-2023 Non-patient / Non-visit Dr. Kashif Farias Work Phone: [facility] Work Phone: Start: 03-17-[address] Fito Farias Work Phone: [facility]-Cardiovascul ar Services Work Phone: Start: 03-11-2023 Non-patient / Non-visit Dr. Kashif Farias Work Phone: [facility] Work Phone: Start: 03-10-2023 Non-patient / Non-visit Dr. Kashif Farias Work Phone: [facility] Start: 03-09-2023 Non-patient / Non-visit Dr. Kashif Farias Work Phone: [facility] Start: 03-09-2023 End: 03-11-2023 Evaluation and management of inpatient [facility] Start: 03-09-2023 Evaluation and management of inpatient Dr. Akbar Farias Work Phone: [facility]-Intensive Care Unit Work Phone: Start: 03-09-2023 End: 03-09-[address] Akbar Farias Work Phone: [facility] Work Phone: Start: 03-09-2023 End: 03-09-[address] Akbar Farias Work Phone: [facility] Start: 01-31-[address] Omar Farias Work Phone: [facility] Start: 01-31-2023 End: 01-31-[address] Akbar Farias Work Phone: [facility] Work Phone: Start: 01-24-2023 End: 01-24-[address] Akbar Farias Work Phone: [facility]-Outpatient Breast Imaging Work Phone: Start: 10-06-2022 End: 10-06-2022 ambulatory [facility] Work Phone: Start: 10-06-2022 End: 10-06-2022 Patient encounter procedure [facility] Start: 04-08-2022 End: 04-08-[address] Akbar Farias Work Phone: [facility] Work Phone: Start: 04-08-2022 End: 04-08-[address] Akbar Farias Work Phone: [facility] Start: 02-03-2022 End: 02-03-[address] Akbar Farias Work Phone: [facility] Work Phone: Start: 02-03-2022 End: 02-03-[address] Akbar Farias Work Phone: [facility]-Radiology, [facility] Start: 02-03-[address] Omar Farias Work Phone: [facility] Start: 02-03-2022 End: 02-03-[address] Akbar Farias Work Phone: [facility] Start: 01-22-2022 End: 01-22-[address] Akbar Farias Work Phone: [facility]-Outpatient Breast Imaging Start: 01-07-2022 End: 01-07-2022 Patient encounter procedure [facility] Start: 01-05-2022 End: 01-05-2022 ambulatory [facility] Work Phone: Start: 01-05-2022 End: 01-05-2022 [facility] Start: 10-05-2021 End: 10-05-2021 Patient encounter procedure [facility] Procedures Date Procedure Procedure Detail Performing Clinician Start: 10-17-2024 Urine microalbumin/creatinine ratio measurement Dr. Teodoro Farias MD Work Phone: Start: 09-11-[address] Teodoro Farias MD Work Phone: Start: 09-10-2024 Plain X-ray of shoulder Dr. Teodoro Farias MD Work Phone: Start: 09-10-2024 Reverse prosthetic t otal arthroplasty of right shoulder Dr. Teodoro Farias MD Work Phone: Start: 08-20-2024 CT of upper limb wit hout contrast Dr. Teodoro Farias MD Work Phone: Start: 08-16-2024 Methicillin resistan t Staphylococcus aureus screening test Dr. Teodoro Farias MD Work Phone: Start: [...] Screening mammograph y of left breast Dr. Akabr Farias Work Phone: Plan of Treatment Date Care Activity Detail Author Start: 01-17-2025 ambulatory Ambulatory Facility:[facility] Start: 12-26-2024 End: 12-26-2024 Patient encounter procedure Departed Clinical -Laboratory Work Phone: Start: 12-20-2024 [facility] Start: 09-11-2024 Patient discharge [facility] Start: 09-10-2024 End: 09-10-2024 [facility] Start: 09-10-2024 Application of intermittent pneumatic compression device [facility] Start: 09-10-2024 Care regimes management [facility] Start: 09-10-2024 Notification of physician [facility] Start: 09-10-2024 Following clinical pathway protocol [facility] Start: 09-10-2024 Anes arthroscopic total shoulder replacement ANESTH SHOULDER REPLACEMENT [facility] Start: 09-10-2024 Arthroplasty glenohumeral joint total shoulder RECONSTRUCT SHOULDER JOINT [facility] Start: 09-10-2024 Prosthetic total arthroplasty of left shoulder RECONSTRUCT SHOULDER JOINT [facility] Start: 09-10-2024 Recommendation to continue with treatment [facility] Start: 09-10-2024 Admission procedure [facility] Start: 09-10-2024 Ambulation therapy management [facility] Start: 09-10-2024 Application of device [facility] Start: 09-10-2024 Assessment of risk of venous thromboembolism [facility] Start: 09-10-2024 Catheterization of vein [facility] Start: 09-10-2024 Consultation [facility] Start: 09-10-2024 Following clinical pathway protocol [facility] Start: 09-10-2024 Incentive spirometry [facility] Start: 09-10-2024 Introduction of urinary catheter [facility] Start: 09-10-2024 Measuring intake and output [facility] Start: 09-10-2024 Neurovascular assessment [facility] Start: 09-10-2024 Patient education [facility] Start: 09-10-2024 Procedure discontinued [facility] Start: 09-10-2024 Provision of activity privileges [facility] Start: 09-10-2024 Referral to occupational therapist [facility] Start: 09-10-2024 Vital signs measurements [facility] Start: 09-10-2024 Wound care [facility] Start: 09-10-2024 [facility] Start: 08-16-2024 Electrocardiographic procedure [facility] Start: 03-11-2023 Patient discharge [facility] Start: 03-10-2023 [facility] Start: 03-10-2023 Patient referral [facility] Work Phone: Start: 03-09-2023 Following clinical pathway protocol [facility] Start: 03-09-2023 Admission procedure [facility] Start: 03-09-2023 Ambulation without limitation [facility] Start: 03-09-2023 Cardiac monitoring [facility] Start: 03-09-2023 Cardiac rehabilitation - phase 1 [facility] Start: 03-09-2023 Cardiac rehabilitation - phase 2 [facility] Start: 03-09-2023 Notification of physician [facility] Start: 03-09-2023 Oxygen therapy [facility] Start: 03-09-2023 Patient discharge [facility] Start: 03-09-2023 Systemic arterial pressure monitoring [facility] Start: 03-09-[address] [facility] Start: 03-09-2023 Vascular disease risk assessment [facility] Start: 03-09-2023 Vital signs measurements [facility] Start: 03-09-2023 End: 03-09-2023 [facility] Start: 03-09-2023 Hospital admission, emergency, from emergency room, medical nature [facility] Start: 03-09-2023 Blood chemistry [facility] Start: 03-09-2023 End: 03-09-2023 [facility] Start: 08-12-2016 [facility] Anion gap measurement [facility] BUN/Creatinine ratio [facility] Calcium [Mass/volume ] in Serum or Plasma [facility] Carbon dioxide, tota l [Moles/volume] in Serum or Plasma [facility] Cardiac event recording [facility] CBC W Auto Different ial panel - Blood [facility] Chloride [Moles/volu me] in Serum or Plasma [facility] Creatinine [Moles/vo lume] in Serum or Plasma [facility] Electrocardiographic procedure [facility] Glucose [Mass/volume ] in Serum or Plasma [facility] Measurement of renal function [facility] MG Breast Diagnostic [facility] Work Phone: MG Breast Diagnostic [facility] NM Heart Views W str ess and W radionuclide IV [facility] NM Whole body Bone Views [facility] Work Phone: NM Whole body Bone Views [facility] Patient Education First Aid: Hea rt Attacks Exercising After a Heart Attack Heart Attack Questions Heart Attack: Leaving the Hospital Heart Attack: Back at Home Heart Attack Resuming Sex [facility] Work Phone: Patient referral [facility] Work Phone: Potassium [Moles/vol ume] in Serum or Plasma [facility] Sodium [Moles/volume ] in Serum or Plasma [facility] Urea nitrogen [Mass/ volume] in Serum or Plasma [facility] Work Phone: [facility] Heart limited [facility] XR Chest PA and Lateral [facility] Work Phone: XR Chest PA and Lateral [facility] XR Femur 2 Views [facility] Work Phone: XR Femur 2 Views [facility] XR Pelvis and Hip Views [facility] Work Phone: XR Pelvis and Hip Views [facility] Immunizations Immunization Date Immunization Notes Care Provider Ney lozano 12-03-2016 influenza, injectabl e, quadrivalent, preservative free Dr. Akbar Farias Work Phone: [facility] 12-03-2016 influenza, seasonal, injectable [facility] Payers Date Payer Category Payer Self-pay [id number] 2023 Medicare [id number] 2023 Self-pay [id number] [facility] [id number] Unknown [id number] 2.16.8 [id number] Unknown [id number] 2.16.8 [id number] Unknown [id number] 2.16.8 [id number] Unknown [id number] 2.16.8 [id number] Unknown [id number] 2.16.8 [id number] Unknown [id number] 2.16.8 [id number] Unknown [id number] 2.16.8 [id number] Unknown [id number] 2.16.8 [id number] Unknown [id number] 2.16.8 [id number] Unknown [id number] 2.16.8 [id number] Unknown [id number] 2.16.8 [id number] Unknown [id number] 2.16.8 [id number] Unknown [id number] 2.16.8 [id number] Unknown [id number] 2.16.8 [id number] Unknown [id number] 2.16.8 [id number] Unknown [id number] 2.16.8 [id number] Unknown [id number] 2.16.8 [id number] Unknown [id number] 2.16.8 [id number] Unknown [id number] 2.16.8 [id number] Unknown [id number] 2.16.8 [id number] Unknown [id number] 2.16.8 [id number] Unknown [id number] 2.16.8 [id number] Social History Date Type Detail Facility Start: 02-12-2020 End: 04-05-2023 Tobacco smoking status NHIS Unknown if ever smoked [facility] Start: 1950 Sex Assigned At Female [facility] Start: 05-16-2017 None [facility] Start: 05-16-2017 Spouse/ Signif icant Other [facility] Start: 04-05-2023 End: 09-10-2024 Tobacco smoking status NHIS Never smoked tobacco (finding) [facility] Start: 06-15-2024 Sex Female (finding) [facility] Not [facility] NEGATED: Highlighted row Not [facility] Medical Equipment Procedure Code Equipment Code Equipment Origin al Text Equipment Identifier Dates 1.35MM TROACR TI P GUIDE WIRE FDA Start: 05-16-2017 LO PRO LOCKING S CREW 3.5MM FDA Start: 05-16-2017 LO PRO LOCKING S CREW 3.5MM FDA Start: 05-16-2017 LO PRO LOCKING S CREW 3.5MM FDA Start: 05-16-2017 LOCKING DISTAL F IBULA PLATE FDA Start: 05-16-2017 QCKFIX FRANKLIN CANC [...] QCKFIX SCREW FDA Start: 05-16-2017 K-LESS T-ROPE W/FELT HAT INSPECTOR AND PACKER FDA Start: 05-16-2017 LO PRO LOCKING S CREW 3.5MM FDA Start: 05-16-2017 1.35MM TROACR TI P GUIDE WIRE FDA Start: 05-16-2017 LO PRO LOCKING S CREW 3.5MM FDA Start: 05-16-2017 LO PRO LOCKING S CREW 3.5MM FDA Start: 05-16-2017 LO PRO LOCKING S CREW 3.5MM FDA Start: 05-16-2017 LOCKING DISTAL F IBULA PLATE FDA Start: 05-16-2017 QCKFIX FRANKLIN CANC [...] QCKFIX SCREW FDA Start: 05-16-2017 K-LESS T-ROPE W/FELT HAT INSPECTOR AND PACKER FDA Start: 05-16-2017 LO PRO LOCKING S CREW 3.5MM FDA Start: 05-16-2017 1.35MM TROACR TI P GUIDE WIRE FDA Start: 05-16-2017 LO PRO LOCKING S CREW 3.5MM FDA Start: 05-16-2017 LO PRO LOCKING S CREW 3.5MM FDA Start: 05-16-2017 LO PRO LOCKING S CREW 3.5MM FDA Start: 05-16-2017 LOCKING DISTAL F IBULA PLATE FDA Start: 05-16-2017 QCKFIX FRANKLIN CANC [...] QCKFIX SCREW FDA Start: 05-16-2017 K-LESS T-ROPE W/FELT HAT INSPECTOR AND PACKER FDA Start: 05-16-2017 LO PRO LOCKING S CREW 3.5MM FDA Start: 05-16-2017 1.35MM TROACR TI P GUIDE WIRE FDA Start: 05-16-2017 LO PRO LOCKING S CREW 3.5MM FDA Start: 05-16-2017 LO PRO LOCKING S CREW 3.5MM FDA Start: 05-16-2017 LO PRO LOCKING S CREW 3.5MM FDA Start: 05-16-2017 LOCKING DISTAL F IBULA PLATE FDA Start: 05-16-2017 QCKFIX FRANKLIN CANC [...] QCKFIX SCREW FDA Start: 05-16-2017 K-LESS T-ROPE W/FELT HAT INSPECTOR AND PACKER FDA Start: 05-16-2017 LO PRO LOCKING S CREW 3.5MM FDA Start: 05-16-2017 1.35MM TROACR TI P GUIDE WIRE FDA Start: 05-16-2017 LO PRO LOCKING S CREW 3.5MM FDA Start: 05-16-2017 LO PRO LOCKING S CREW 3.5MM FDA Start: 05-16-2017 LO PRO LOCKING S CREW 3.5MM FDA Start: 05-16-2017 LOCKING DISTAL F IBULA PLATE FDA Start: 05-16-2017 QCKFIX FRANKLIN CANC [...] QCKFIX SCREW FDA Start: 05-16-2017 K-LESS T-ROPE W/FELT HAT INSPECTOR AND PACKER FDA Start: 05-16-2017 LO PRO LOCKING S CREW 3.5MM FDA Start: 05-16-2017 1.35MM TROACR TI P GUIDE WIRE FDA Start: 05-16-2017 LO PRO LOCKING S CREW 3.5MM FDA Start: 05-16-2017 LO PRO LOCKING S CREW 3.5MM FDA Start: 05-16-2017 LO PRO LOCKING S CREW 3.5MM FDA Start: 05-16-2017 LOCKING DISTAL F IBULA PLATE FDA Start: 05-16-2017 QCKFIX FRANKLIN CANC [...] QCKFIX SCREW FDA Start: 05-16-2017 K-LESS T-ROPE W/FELT HAT INSPECTOR AND PACKER FDA Start: 05-16-2017 LO PRO LOCKING S CREW 3.5MM FDA Start: 05-16-2017 1.35MM TROACR TI P GUIDE WIRE FDA Start: 05-16-2017 LO PRO LOCKING S CREW 3.5MM FDA Start: 05-16-2017 LO PRO LOCKING S CREW 3.5MM FDA Start: 05-16-2017 LO PRO LOCKING S CREW 3.5MM FDA Start: 05-16-2017 LOCKING DISTAL F IBULA PLATE FDA Start: 05-16-2017 QCKFIX FRANKLIN CANC [...] QCKFIX SCREW FDA Start: 05-16-2017 K-LESS T-ROPE W/FELT HAT INSPECTOR AND PACKER FDA Start: 05-16-2017 LO PRO LOCKING S CREW 3.5MM FDA Start: 05-16-2017 Drug-eluting cor onary artery stent, [id number] ymer-coated [id number] FDA Start: 03-10-2023 1.35MM TROACR TI P GUIDE WIRE FDA Start: 05-16-2017 LO PRO LOCKING S CREW 3.5MM FDA Start: 05-16-2017 LO PRO LOCKING S CREW 3.5MM FDA Start: 05-16-2017 LO PRO LOCKING S CREW 3.5MM FDA Start: 05-16-2017 LOCKING DISTAL F IBULA PLATE FDA Start: 05-16-2017 QCKFIX FRANKLIN CANC [...] QCKFIX SCREW FDA Start: 05-16-2017 K-LESS T-ROPE W/FELT HAT INSPECTOR AND PACKER FDA Start: 05-16-2017 LO PRO LOCKING S CREW 3.5MM FDA Start: 05-16-2017 1.35MM TROACR TI P GUIDE WIRE FDA Start: 05-16-2017 LO PRO LOCKING S CREW 3.5MM FDA Start: 05-16-2017 LO PRO LOCKING S CREW 3.5MM FDA Start: 05-16-2017 LO PRO LOCKING S CREW 3.5MM FDA Start: 05-16-2017 LOCKING DISTAL F IBULA PLATE FDA Start: 05-16-2017 QCKFIX FRANKLIN CANC [...] QCKFIX SCREW FDA Start: 05-16-2017 K-LESS T-ROPE W/FELT HAT INSPECTOR AND PACKER FDA Start: 05-16-2017 LO PRO LOCKING S CREW 3.5MM FDA Start: 05-16-2017 1.35MM TROACR TI P GUIDE WIRE FDA Start: 05-16-2017 LO PRO LOCKING S CREW 3.5MM FDA Start: 05-16-2017 LO PRO LOCKING S CREW 3.5MM FDA Start: 05-16-2017 LO PRO LOCKING S CREW 3.5MM FDA Start: 05-16-2017 LOCKING DISTAL F IBULA PLATE FDA Start: 05-16-2017 QCKFIX FRANKLIN CANC [...] QCKFIX SCREW FDA Start: 05-16-2017 K-LESS T-ROPE W/FELT HAT INSPECTOR AND PACKER FDA Start: 05-16-2017 LO PRO LOCKING S CREW 3.5MM FDA Start: 05-16-2017 1.35MM TROACR TI P GUIDE WIRE FDA Start: 05-16-2017 LO PRO LOCKING S CREW 3.5MM FDA Start: 05-16-2017 LO PRO LOCKING S CREW 3.5MM FDA Start: 05-16-2017 LO PRO LOCKING S CREW 3.5MM FDA Start: 05-16-2017 LOCKING DISTAL F IBULA PLATE FDA Start: 05-16-2017 QCKFIX FRANKLIN CANC [...] QCKFIX SCREW FDA Start: 05-16-2017 K-LESS T-ROPE W/FELT HAT INSPECTOR AND PACKER FDA Start: 05-16-2017 LO PRO LOCKING S CREW 3.5MM FDA Start: 05-16-2017 1.35MM TROACR TI P GUIDE WIRE FDA Start: 05-16-2017 LO PRO LOCKING S CREW 3.5MM FDA Start: 05-16-2017 LO PRO LOCKING S CREW 3.5MM FDA Start: 05-16-2017 LO PRO LOCKING S CREW 3.5MM FDA Start: 05-16-2017 LOCKING DISTAL F IBULA PLATE FDA Start: 05-16-2017 QCKFIX FRANKLIN CANC [...] QCKFIX SCREW FDA Start: 05-16-2017 K-LESS T-ROPE W/FELT HAT INSPECTOR AND PACKER FDA Start: 05-16-2017 LO PRO LOCKING S CREW 3.5MM FDA Start: 05-16-2017 1.35MM TROACR TI P GUIDE WIRE FDA Start: 05-16-2017 LO PRO LOCKING S CREW 3.5MM FDA Start: 05-16-2017 LO PRO LOCKING S CREW 3.5MM FDA Start: 05-16-2017 LO PRO LOCKING S CREW 3.5MM FDA Start: 05-16-2017 LOCKING DISTAL F IBULA PLATE FDA Start: 05-16-2017 QCKFIX FRANKLIN CANC [...] QCKFIX SCREW FDA Start: 05-16-2017 K-LESS T-ROPE W/FELT HAT INSPECTOR AND PACKER FDA Start: 05-16-2017 LO PRO LOCKING S CREW 3.5MM FDA Start: 05-16-2017 1.35MM TROACR TI P GUIDE WIRE FDA Start: 05-16-2017 LO PRO LOCKING S CREW 3.5MM FDA Start: 05-16-2017 LO PRO LOCKING S CREW 3.5MM FDA Start: 05-16-2017 LO PRO LOCKING S CREW 3.5MM FDA Start: 05-16-2017 LOCKING DISTAL F IBULA PLATE FDA Start: 05-16-2017 QCKFIX FRANKLIN CANC [...] QCKFIX SCREW FDA Start: 05-16-2017 K-LESS T-ROPE W/FELT HAT INSPECTOR AND PACKER FDA Start: 05-16-2017 LO PRO LOCKING S CREW 3.5MM FDA Start: 05-16-2017 1.35MM TROACR TI P GUIDE WIRE FDA Start: 05-16-2017 LO PRO LOCKING S CREW 3.5MM FDA Start: 05-16-2017 LO PRO LOCKING S CREW 3.5MM FDA Start: 05-16-2017 LO PRO LOCKING S CREW 3.5MM FDA Start: 05-16-2017 LOCKING DISTAL F IBULA PLATE FDA Start: 05-16-2017 QCKFIX FRANKLIN CANC [...] QCKFIX SCREW FDA Start: 05-16-2017 K-LESS T-ROPE W/FELT HAT INSPECTOR AND PACKER FDA Start: 05-16-2017 LO PRO LOCKING S CREW 3.5MM FDA Start: 05-16-2017 1.35MM TROACR TI P GUIDE WIRE FDA Start: 05-16-2017 LO PRO LOCKING S CREW 3.5MM FDA Start: 05-16-2017 LO PRO LOCKING S CREW 3.5MM FDA Start: 05-16-2017 LO PRO LOCKING S CREW 3.5MM FDA Start: 05-16-2017 LOCKING DISTAL F IBULA PLATE FDA Start: 05-16-2017 QCKFIX FRANKLIN CANC [...] QCKFIX SCREW FDA Start: 05-16-2017 K-LESS T-ROPE W/FELT HAT INSPECTOR AND PACKER FDA Start: 05-16-2017 LO PRO LOCKING S CREW 3.5MM FDA Start: 05-16-2017 1.35MM TROACR TI P GUIDE WIRE FDA Start: 05-16-2017 LO PRO LOCKING S CREW 3.5MM FDA Start: 05-16-2017 LO PRO LOCKING S CREW 3.5MM FDA Start: 05-16-2017 LO PRO LOCKING S CREW 3.5MM FDA Start: 05-16-2017 LOCKING DISTAL F IBULA PLATE FDA Start: 05-16-2017 QCKFIX FRANKLIN CANC [...] QCKFIX SCREW FDA Start: 05-16-2017 K-LESS T-ROPE W/FELT HAT INSPECTOR AND PACKER FDA Start: 05-16-2017 LO PRO LOCKING S CREW 3.5MM FDA Start: 05-16-2017 1.35MM TROACR TI P GUIDE WIRE FDA Start: 05-16-2017 LO PRO LOCKING S CREW 3.5MM FDA Start: 05-16-2017 LO PRO LOCKING S CREW 3.5MM FDA Start: 05-16-2017 LO PRO LOCKING S CREW 3.5MM FDA Start: 05-16-2017 LOCKING DISTAL F IBULA PLATE FDA Start: 05-16-2017 QCKFIX FRANKLIN CANC [...] QCKFIX SCREW FDA Start: 05-16-2017 K-LESS T-ROPE W/FELT HAT INSPECTOR AND PACKER FDA Start: 05-16-2017 LO PRO LOCKING S CREW 3.5MM FDA Start: 05-16-2017 CENTRAL SCREW FDA Start: 09-10-2024 HUMERAL STEM, ST D, SHORT FDA Start: 09-10-2024 LATERALIZED BASE PLATE AUGMENTED FDA Start: 09-10-2024 PERIPHERAL SCREW FDA Start: 09-10-2024 PERIPHERAL SCREW FDA Start: 09-10-2024 RETENTIVE REVERS ED INSERT, THICKNESS FDA Start: 09-10-2024 STANDARD GLNOSPH ERE COCR FDA Start: 09-10-2024 1.35MM TROACR TI P GUIDE WIRE FDA Start: 05-16-2017 LO PRO LOCKING S CREW 3.5MM FDA Start: 05-16-2017 LO PRO LOCKING S CREW 3.5MM FDA Start: 05-16-2017 LO PRO LOCKING S CREW 3.5MM FDA Start: 05-16-2017 LOCKING DISTAL F IBULA PLATE FDA Start: 05-16-2017 QCKFIX FRANKLIN CANC [...] QCKFIX SCREW FDA Start: 05-16-2017 K-LESS T-ROPE W/FELT HAT INSPECTOR AND PACKER FDA Start: 05-16-2017 LO PRO LOCKING S CREW 3.5MM FDA Start: 05-16-2017 CENTRAL SCREW FDA Start: 09-10-2024 HUMERAL STEM, ST D, SHORT FDA Start: 09-10-2024 LATERALIZED BASE PLATE AUGMENTED FDA Start: 09-10-2024 PERIPHERAL SCREW FDA Start: 09-10-2024 PERIPHERAL SCREW FDA Start: 09-10-2024 RETENTIVE REVERS ED INSERT, THICKNESS FDA Start: 09-10-2024 STANDARD GLNOSPH ERE COCR FDA Start: 09-10-2024 1.35MM TROACR TI P GUIDE WIRE FDA Start: 05-16-2017 LO PRO LOCKING S CREW 3.5MM FDA Start: 05-16-2017 LO PRO LOCKING S CREW 3.5MM FDA Start: 05-16-2017 LO PRO LOCKING S CREW 3.5MM FDA Start: 05-16-2017 LOCKING DISTAL F IBULA PLATE FDA Start: 05-16-2017 QCKFIX FRANKLIN CANC [...] QCKFIX SCREW FDA Start: 05-16-2017 K-LESS T-ROPE W/FELT HAT INSPECTOR AND PACKER FDA Start: 05-16-2017 LO PRO LOCKING S CREW 3.5MM FDA Start: 05-16-2017 CENTRAL SCREW FDA Start: 09-10-2024 HUMERAL STEM, ST D, SHORT FDA Start: 09-10-2024 LATERALIZED BASE PLATE AUGMENTED FDA Start: 09-10-2024 PERIPHERAL SCREW FDA Start: 09-10-2024 PERIPHERAL SCREW FDA Start: 09-10-2024 RETENTIVE REVERS ED INSERT, THICKNESS FDA Start: 09-10-2024 STANDARD GLNOSPH ERE COCR FDA Start: 09-10-2024 Goals Date Patient Goal Desired Activity /State Functional Status Date Assessment Result Facility 09-11-2024 Functional status Ambulates [facility] Work Phone: 03-11-2023 Functional status Ambulates;Up ad mukesh [facility] Work Phone: Mental Status Date Assessment Result Facility 09-11-2024 Cognitive function Voice/Name [facility] Work Phone: 03-11-2023 Cognitive function Voice/Name [facility] Work Phone: 03-09-2023 Cognitive function Voice/Name [facility] Work Phone: Clinical Notes 01-05-2022 to 12-20-2024 Note Date & Type Note Facility 12-20-2024 Progress note [facility] 12-20-2024 Progress note Note Date/Time December 20, 2024 2:16pm [facility] [place] [address] OFFICE VISIT Date of Service: 12/20/24 MR#: [id number] Acct: [id number] Name: ELOISA TSANG Rep #: [id number] : 1950 Provider: Dr. Ganesh Hammonds MD Age/Sex: 74/F Location: [facility] Status: Signed HPI HPI History of Present Illness Details: This lady with history of inferior STEMI in March 2023 status post primary PCIwith drug-eluting stent to the proximal and mid RCA is here for follow-up visit. Denies any chest pains either at rest or with exertion. However with strenuousexertion, she feels lightheaded and breaks out in a sweat. No shortness of breath. Denies orthopnea or PND. No ankle edema. Denies palpitations. 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 Required: No Accompanied by: Is patient in pain?: No Allergies Penicillins (PCN) Allergy (Severe, Verified 12/20/24 13:53) Hives bee venom protein (honey bee) Allergy (Verified 12/20/24 13:53) Anaphylaxis Medications ?Medication ?Instructions ?Recorded ?Confirmed ?Type pramipexole 0.5 mg tablet 0.5 mg PO BID restless legs 06/02/16 12/20/24 History citalopram 20 mg tablet 20 mg PO QHS depression 06/2812/20/24 History levothyroxine 125 mcg tablet 125 mcg PO MOTUWETHFRSA t hyroid 03/10/23 12/20/24 History aspirin 81 mg tablet,delayed 81 mg PO DAILY@0800 #0 ta bs 03/11/23 12/20/24 Rx release Held on 09/11/24. Instructions: Resume on 09/11/24. losartan 100 mg tablet 100 mg PO DAILY 04/05/23 History metformin 500 mg tablet,extended 500 mg PO BID 12/20/24 History release 24 hr omeprazole 40 mg capsule,delayed 40 mg PO DAILY 12/20/24 History release calcium 600 mg (as 1 cap PO BID 07/04/23 History carbonate)-vitamin D3 12.5 mcg (500 unit) capsule (Calcium with Vit D3) ukpjmlwtimti-Fp-ugcm-minerals 1 tab PO DAILY vitamin 0 07/04/23 12/20/24 History atorvastatin 80 mg tablet 80 mg PO QHS #90 tabs 12/20/24 Rx carvedilol 12.5 mg tablet 12.5 mg PO BID #180 tabs 12/20/24 Rx clopidogrel 75 mg tablet 75 mg PO DAILY #90 tabs 03/0812/20/24 Rx spironolactone 25 mg tablet 25 mg PO DAILY #30 tabs 12/20/24 Rx levothyroxine 125 mcg capsule 62.5 mcg PO DAILY BAXTER 11/2912/20/24 History acetaminophen 500 mg tablet 1,000 mg (2 x 500 mg) PO Q 8H #0 09/11/24 12/20/24 Rx tabs Ejection fraction %: 35 Have you fallen in the past year?: No PFSH Medical History Wears glasses Arthritis Low iron Restless legs Gastric reflux Non-smoker Shortness of breath on exertion History of echocardiogram History of stress test History of Holter monitoring Cardiology follow-up encounter History of heart attack Ischemic cardiomyopathy Atherosclerosis of coronary artery of [place] heart without angina pectoris Stage 3b chronic kidney disease (CKD) Anemia Dyslipidemia ST elevation (STEMI) myocardial infarction (~03/09/23) Benign breast cyst in female History of breast cancer Breast lump in female Sleep-disordered breathing Trimalleolar fracture of right ankle Hypothyroidism Type 2 diabetes mellitus Hypertension Thyroid disease Hyperlipidemia Depression Skin cancer Breast cancer 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 Surgical History History of surgery History of cardiac catheterization Stented coronary artery (03/09/22) Hx of colonoscopy History of ankle surgery History of Mohs micrographic surgery for skin cancer History of reconstruction of right breast Hx of right mastectomy Status post open reduction with internal fixation (ORIF) of fracture of ankle Hx of tonsillectomy Family History Mother Heart disease Breast cancer [...] not exercise ROS Const Const: Negative for fatigue or weakness Eyes Eyes: Negative for change in vision ENT ENT: Positive for dizziness; Negative for balance problems Cardio Chest Pain: No Palpitations: No Edema: None Resp Respiratory: Negative for SOB with activity, SOB at rest or SOB orthopnea\SOB lying down GI GI: Negative nausea or heartburn Musc Musc: Negative for balance problems Neuro Neuro: Positive for dizziness, lightheadedness and near syncope; Negative for syncope or weakness Endo Endo: Negative for fatigue Cardiology Exam Const Appearance: comfortable and no acute distress Nutritional Appearance: well nourished Neck Neck: no JVD Carotids: Negative bruit Chest Auscultation: Bilateral: Clear to Auscultation Cardio Rate: regular rate Rhythm: regular rhythm Heart sounds: S1 normal and S2 normal Neuro General: patient alert, patient awake and patient oriented x3 Extremities Lower Extremity Edema: None: Bilateral Supplemental Info Supplemental Information Labs: HDL Cholesterol, (40-) 53 mg/dL Cholesterol, (<=200) 155 mg/dL Triglycerides, (-199) 154 mg/dL Diagnostics: Electrocardiogram Echocardiogram Stress Test Stress Test Nuclear Medicine Cardiac Catheterization Chest X-Ray Past Visits: Cardiology Visit Today Assessment and Plan Assessment and Plan (1) Coronary artery disease: Status: Chronic Comment: History of inferior ST elevation myocardial infarction in March 2023. Plan: Aspirin and Plavix. Beta-blockers. Statins. Repeat Lexiscan stress Myoview. (2) Stented coronary artery: Status: Chronic Comment: Prox RCA- Faulk 3.5x30 mm 03/09/23 Plan: Continue aspirin and Plavix. Risk factor modification. (3) Mitral regurgitation: Status: Chronic Plan: Continue losartan for afterload reduction. Repeat echocardiogram. (4) Ischemic cardiomyopathy: Status: Resolved Plan: EF noted as 35% on last echocardiogram. Discrepancy between nuclear gated images and echocardiogram. Will check cardiac MRI. Continue beta-blockers, angiotensin receptor blockers, Aldactone. Start on SGLT2 inhibitors. (5) Hypertension: Status: Chronic Qualifiers: Hypertension type: primary hypertension Qualified Code(s): I10 - Essential (primary) hypertension Comment: PER PT, CONTROLLED ON MEDS Plan: Losartan, carvedilol and Aldactone. (6) Hyperlipidemia: Status: Chronic Qualifiers: Hyperlipidemia type: mixed hyperlipidemia Qualified Code(s): E78.2 - Mixed hyperlipidemia Plan: Repeat lipid profile. Continue atorvastatin. (7) Type 2 diabetes mellitus: Status: Chronic Plan: As per primary care physician. Plan Details Follow Up: 3 Months Coding Level of Care Code Off vis,est,level 4 Diagnoses Coronary artery disease I25.10 Stented coronary artery Z95.5 Mitral regurgitation I34.0 Ischemic cardiomyopathy I25.5 Primary hypertension I10 Hypertension type: primary hypertension Mixed hyperlipidemia E78.2 Hyperlipidemia type: mixed hyperlipidemia Type 2 diabetes mellitus E11.9 Coding Level of Care Code Off vis,est,level 4 Diagnoses Coronary artery disease I25.10 Stented coronary artery Z95.5 Mitral regurgitation I34.0 Ischemic cardiomyopathy I25.5 Primary hypertension I10 Hypertension type: primary hypertension Mixed hyperlipidemia E78.2 Hyperlipidemia type: mixed hyperlipidemia Type 2 diabetes mellitus E11.9 Clinical Quality Measures Falls Risk Screening/Assistive Devices Have you fallen in the past year?: No Cardiac Ejection fraction %: 35 12/20/24 1416 <Electronically signed by Radha Hammonds MD> Date _ Radha Hammonds MD Cosigner Signature: Date (if applicable) CC: Dr. Teodoro Farias MD ~ [facility] Work Phone: [phone] 109-899507-08-2025 Progress note Author Naty Calvo [facility] Note Date/Time September 11, 2024 9:30a m [facility] Medical Records Department [address] [place] [address] Progress Note - Orthopedic 09/11/24 0834 MR#: [id number] Acct: [id number] Name: ELOISA TSANG Rep #:[id number] : 1950 74 From: Naty LEAHY PCP: Dr. Teodoro Farias MD Status :ADM MARISOL Location: MS3 ST693-0 Subjective Subjective Patient appears to be comfortable in bed. Patient states that her pain is adequately controlled at this time. Patient has not yet worked with physical therapy or occupational therapy. Patient denies any nausea, vomiting, dizziness, lightheadedness. Patient denies any fevers, chills, signs of infection. Patient denies any shortness of breath, chest pain, calf pain. Patient denies any adverse events overnight. Objective Data Objective Data Vital Signs: Vital Signs Temp Pulse Resp BP Pulse Ox O2 Del Method O2 Flow Rate 98.1 F 76 16 137/60 H 93 Room Air 4 09/11/24 07:55 09/11/24 07:55 09/11/24 07:55 09/11/24 07:55 09/11/24 07:55 09/11/24 07:55 09/10/24 14:45 Oxygen Flow Rate (L/min) 4 Oxygen Delivery Method Room Air Weight: 74.3 kg Body Mass Index (BMI) 27.2 Intake & Output: Intake and Output for Last 24 Hours 09/09/24 09/10/24 09/11/24 23:59 23:59 23:59 Intake Total 4905.42 / 4905.42 50 / 50 Output Total 852 / 852 1800 / 1800 Balance 4053.42 / 4053.42 -1750 / -1750 Lab / Micro Data 09/11/24 05:08 09/11/24 05:08 Labs: Laboratory Results - last 24 hr 09/10/24 09:27: POC Glucose 122 H 09/10/24 16:31: POC Glucose 156 H 09/10/24 22:11: POC Glucose 181 H 09/11/24 05:08: WBC 15.4 H, RBC 3.51 L, Hgb 10.6 L, Hct 31.8 L, MCV 90.6, MCH 30.2, MCHC 33.3, RDW Std Deviation 48.1 H, RDW Coeff of Nilda 14.6, Plt Count 239,MPV 9.8, Sodium 137, Potassium 4.3, Chloride 103, Carbon Dioxide 20.7 L, Anion Gap 13, BUN 18, Creatinine 0.96, Estim Creat Clear Calc 53.45, Est GFR (MDRD) Non-Af 63, BUN/Creatinine Ratio 18.7, Glucose 184 H, Calcium 8.9 09/11/24 06:19: POC Glucose 167 H Micro: Microbiology 08/16/24 12:24 Swab (Method) Nasal Screen MRSA/MSSA - Final Radiography Diagnostic Testing: Radiology Impression Shoulder X-Ray 09/10/24 13:35 IMPRESSION: Status post total reverse shoulder arthroplasty with well-positioned hardware without obvious complication. Reading Location: [facility] Physical Exam Narrative Vital signs are stable and afebrile Dressing is clean, dry, intact UltraSling has been appropriately fitted Sensation intact to axillary, radial, median, ulnar nerve distributions Motor intact with patient able to perform okay sign, cross progress, thumbs up. CARROLL hose in place bilaterally. SCDs in place bilaterally. Const alert, oriented x3 and no apparent distress Assessment & Plan Assessment/Plan (1) Status post reverse total arthroplasty of right shoulder: PLAN: Status post right reverse total shoulder arthroplasty day 1 1. DVT prophylaxis: Patient will be on her regular dose of Plavix with additionof aspirin 81 mg twice daily for 4 weeks. Patient was educated that she will bewearing her CARROLL hose for 2 weeks postoperatively. 2. Pain medications: Patient was instructed to take Tylenol 1000 mg every 8 hours [id number] taking no more than 3024 hours. Patient will then be taking oxycodone as needed for postoperative pain control. OARRS report was reviewed today. The risk of abuse potential for narcotic pain medication was discussed and reviewed with patient. 3. Constipation: Patient will be on senna as instructed until first bowel movement to decrease risk of impaction following surgery. Patient was instructed if they have not had a bowel movement in 3 days to contact her officefor reevaluation. 4. Physical therapy: Patient is to continue with UltraSling at all times. Patient is okay to take sling off for elbow range of motion, pendulum exercises 2-3 times daily. No range of motion of the operative shoulder for 2 weeks postoperatively. Will begin outpatient physical therapy after the 2-week follow-up appointment at [facility]. 5. Reactive leukocytosis: White blood cell count is currently 15.4. Vital signs are stable and patient is afebrile. Patient did receive Decadron intraoperatively. 6. H&H: 10.6/31.8. Patient was taking ferrous sulfate and folic acid prior to surgery. Will have patient continue taking medications. Will have patient get outpatient labs and follow-up with primary care provider in 1 week for chronic management of anemia. 7. Incentive spirometry: Patient was encouraged to use incentive spirometer every hour that she is awake for the first week to exercise lungs and decrease risk of postoperative infection. 8. Patient is to follow-up per postoperative instructions. 9. Medicine is involved in case at this time. Appreciate recommendations from medicine for safe and proper discharge. 10. Patient does have follow-up appointment scheduled with our office in 2 weeks postoperatively. 11. Patient is okay for discharge if pain is adequately controlled, works with physical therapy and does well, and is okay per medicine doctors instructions. 12. Disposition: Patient is doing well at this time. Patient states that she is ready to go home and get some rest. Patient will start outpatient physical therapy after 2-week follow-up appointment with our office. Patient is to follow-up per postoperative instructions. Patient will continue with ferrous sulfate and folic acid and get labs with primary care provider in roughly 1 week. Patient will continue with UltraSling at all times. There will be no range of motion of operative shoulder for 2 weeks postoperatively. Will follow-up with patient in 2 weeks postoperatively. Patient was encouraged to call withany questions, concerns, new problems. 09/11/24 0845 <Electronically signed by Naty LEAHY> Cosigner Signature (if applicable): CC: ~ Signed ADDENDUM by TOSIN Calderon on 09/11/24 at 0930 Addendum Hospitalist did state that at this time patient was medically stable and was okay for discharge from a medical standpoint at this point. 09/11/24 0930<Electronically signed by Naty LEAHY> Cosigner Signature (if applicable): cc: ~* Signed [facility] Work Phone: 1(765) 807-376907-08-2025 Discharge summary Author Naty Calvo [facility] Note Date/Time September 11, 2024 9:01a [facility] Medical Records Department [address] [place] [address] Instructions for Home/Discharge Instructions 09/11/24 0846 MR#: [id number] Acct: [id number] Name: ELOISA TSANG Rep #:[id number] 6 : 1950 74 From: Naty LEAHY PCP: Dr. Teodoro Farias MD Status :ADM MARISOL Discharge Instructions Diet Discharge Diet: No restrictions DC O2, CPAP, BIPAP needs Home O2 Discharge instructions: No Dressing / Incision Discharge Activity: - (Use UltraSling at all times. No use of operative shoulder for 2 weeks postoperatively. Okay to take sling off to work on elbow range of motion and pendulum exercises 2-3 times daily. Physical therapy will start after 2-week follow-up appointment.) Weight Bearing Status: No weight bearing (On right shoulder.) Dressing / Incision Call your doctor if your incision/area has: Continuous Slow Oozing, Sudden Increased Bleeding, Increased Pain/ Swelling, Increased Redness, Foul Smelling Discharge and Swelling at the incision site Call your doctor if you observe: Fever of 101 or Higher, Coldness, Increased Pain, Numbness or Tingling, Change in Color, Inability to urinate, Inability to have a bowel movement, Using more than 1 pad per hour, Shortness of breath, Dizziness, Fainting spells, Swelling in the ankles, Chest pain, Increased palpitations (irregular heartbeat), Calf discomfort and Uncontrolled pain Remove Dressing in: 5 days (Patient can remove dressing on postoperative day 5. Steri-Strips are present under the dressing and patient was educated to leave Steri-Strips alone and allow them to fall off on their own.) Cleanse incision/area with: Soap & Water Additional Dressing/Incision Instructions:: No soaking, submerging of incision for 6 weeks postoperatively. No lotions, salves, oils over incisions for 6 weeks postoperatively. OARRS report was checked and reviewed in office today. Follow Up Care Test Results: Test results from this visit will be discussed in further detail at your follow- up appointment, if applicable. Discharge Plan Admission Admit Date/Time: 09/10/24 07:32 Attending Provider: Corey Mckeon Primary Care Provider: Teodoro Farias Consulting Providers: Lisbeth Lopez Discharge Orders/Prescriptions Prescriptions: New acetaminophen 500 mg Tablet 1,000 mg PO Q8H Qty: 0 0RF aspirin 81 mg capsule 81 mg PO BID 30 Days Qty: 60 0RF famotidine 20 mg Tablet 20 mg PO DAILY 30 Days Qty: 30 0RF oxycodone 5 mg Tablet 5 - 10 mg PO Q4H PRN PRN (Reason: As needed for pain) 7 Days Qty: 42 0RF Continued omeprazole 40 mg capsule,delayed release(DR/EC) 40 mg PO DAILY losartan 100 mg tablet 100 mg PO DAILY metformin 500 mg tablet extended release 24 hr 500 mg PO BID calcium carbonate-vitamin D3 [Calcium 600 with Vitamin D3] 600 mg-12.5 mcg (500 unit) capsule 1 cap PO BID pramipexole 0.5 MG tablet 0.5 mg PO BID xccypricvwyt-An-vocx-minerals Tablet 1 tab PO DAILY citalopram 20 mg tablet 20 mg PO QHS levothyroxine 125 mcg tablet 125 mcg PO MOTUWETHFRSA ferrous sulfate [Feosol] 325 mg (65 mg iron) tablet 325 mg PO QDAY ascorbic acid (vitamin C) 500 mg capsule 500 mg PO DAILY levothyroxine 125 mcg capsule 62.5 mcg PO DAILY atorvastatin 80 mg tablet 80 mg PO QHS Qty: 90 3RF carvedilol 12.5 mg tablet 12.5 mg PO BID Qty: 180 3RF clopidogrel 75 mg tablet 75 mg PO DAILY Qty: 90 3RF spironolactone 25 mg tablet 25 mg PO DAILY Qty: 30 6RF Held aspirin 81 mg Tablet,Delayed Release (Dr/Ec) 81 mg PO DAILY@0800 Qty: 0 0RF Hold Instructions: Resume on 09/11/24. No Action acetaminophen 500 MG tablet 500 mg PO BID PRN PRN (Reason: Pain Or Fever) Other Ambulatory Orders: 12 Lead EKG (Routine) Timeframe: 20240816 Location: None Selected Ordered By: Dr. Corey Mckeon CBC W/Diff, Automated (Routine) Timeframe: 1 Week Facility: [facility] - Location: Laboratory Ordered By: Naty Calvo Referrals / Follow Up: Teodoro Farias MD [Primary Care Provider] - Disposition Disposition (needs filled in before D/C Order can be placed): Home, Self Care 09/11/24 0901<Electronically signed by Naty LEAHY>Naty LEAHY CC: Dr. Lisbeth Lopez MD; Dr. Teodoro Farias MD ~ Signed [facility] Work Phone: [phone]) 787-114207-08-2025 Progress note [facility] Medical Records Department [address] [place] [address] Progress Note - Orthopedic 09/11/24833 MR#: [id number] Acct: [id number] Name: ELIOSA TSANG Rep #:[id number] : 1950 74 From: Naty LEAHY PCP: Dr. Teodoro Farias MD Status :ADM MARISOL Location: MS3 NP276-9 Subjective Subjective Patient appears to be comfortable in bed. Patient states that her pain is adequately controlled at this time. Patient has not yet worked with physical therapy or occupational therapy. Patient denies any nausea, vomiting, dizziness, lightheadedness. Patient denies any fevers, chills, signs of infection. Patient denies any shortness of breath, chest pain, calf pain. Patient denies any adverse events overnight. Objective Data Objective Data Vital Signs: Vital Signs Temp Pulse Resp BP Pulse Ox O2 Del Method O2 Flow Rate 98.1 F 76 16 137/60 H 93 Room Air 4 09/11/24 07:55 09/11/24 07:55 09/11/24 07:55 09/11/24 07:55 09/11/24 07:55 09/11/24 07:55 09/10/24 14:45 Oxygen Flow Rate (L/min) 4 Oxygen Delivery Method Room Air Weight: 74.3 kg Body Mass Index (BMI) 27.2 Intake & Output: Intake and Output for Last 24 Hours 09/09/24 09/10/24 09/11/24 23:59 23:59 23:59 Intake Total 4905.42 / 4905.42 50 / 50 Output Total 852 / 852 1800 / 1800 Balance 4053.42 / 4053.42 -1750 / -1750 Lab / Micro Data 09/11/24 05:08 09/11/24 05:08 Labs: Laboratory Results - last 24 hr 09/10/24 09:27: POC Glucose 122 H 09/10/24 16:31: POC Glucose 156 H 09/10/24 22:11: POC Glucose 181 H 09/11/24 05:08: WBC 15.4 H, RBC 3.51 L, Hgb 10.6 L, Hct 31.8 L, MCV 90.6, MCH 30.2, MCHC 33.3, RDW Std Deviation 48.1 H, RDW Coeff of Nilda 14.6, Plt Count 239,MPV 9.8, Sodium 137, Potassium 4.3, Chloride 103, Carbon Dioxide 20.7 L, Anion Gap 13, BUN 18, Creatinine 0.96, Estim Creat Clear Calc 53.45,Est GFR (MDRD) Non-Af 63, BUN/Creatinine Ratio 18.7, Glucose 184 H, Calcium 8.9 09/11/24 06:19: POC Glucose 167 H Micro: Microbiology 08/16/24 12:24 Swab (Method) Nasal Screen MRSA/MSSA - Final Radiography Diagnostic Testing: Radiology Impression Shoulder X-Ray 09/10/24 13:35 IMPRESSION: Status post total reverse shoulder arthroplasty with well-positioned hardware without obvious complication. Reading [facility] Physical Exam Narrative Vital signs are stable and afebrile Dressing is clean, dry, intact UltraSling has been appropriately fitted Sensation intact to axillary, radial, median, ulnar nerve distributions Motor intact with patient able to perform okay sign, cross progress, thumbs up. CARROLL hose in place bilaterally. SCDs in place bilaterally. Const alert, oriented x3 and no apparent distress Assessment & Plan Assessment/Plan (1) Status post reverse total arthroplasty of right shoulder: PLAN: Status post right reverse total shoulder arthroplasty day 1 1. DVT prophylaxis: Patient will be on her regular dose of Plavix with additionof aspirin 81 mg twice daily for 4 weeks. Patient was educated that she will bewearing her CARROLL hose for 2 weeks postoperatively. 2. Pain medications: Patient was instructed to take Tylenol 1000 mg every 8 hours glvsty-nwn-eonli taking no more than 3024 hours. Patient will then be taking oxycodone as needed for postoperative pain control. OARRS report was reviewed today. The risk of abuse potential for narcotic pain medication was discussed and reviewed with patient. 3. Constipation: Patient will be on senna as instructed until first bowel movement to decrease riskof impaction following surgery. Patient was instructed if they have not had a bowel movement in 3 days to contact her officefor reevaluation. 4. Physical therapy: Patient is to continue with UltraSling at all times. Patient is okay to take sling off for elbow range of motion, pendulum exercises 2-3 times daily. No range of motion of the operative shoulder for 2 weeks postoperatively. Will begin outpatient physical therapy after the 2-week follow- up appointment at [facility]. 5. Reactive leukocytosis: White blood cell count is currently 15.4. Vital signs are stable and patient is afebrile. Patient did receive Decadron intraoperatively. 6. H&H: 10./.8. Patient was taking ferrous sulfate and folic acid prior to surgery. Will have patient continue taking medications. Will have patient get outpatient labs and follow-up with primary care provider in 1 week for chronic management of anemia. 7. Incentive spirometry: Patient was encouraged to use incentive spirometer every hour that she is awake for the first week to exercise lungs and decrease risk of postoperative infection. 8. Patient is to follow-up per postoperative instructions. 9. Medicine is involved in case at this time. Appreciate recommendations from medicine for safe andproper discharge. 10. Patient does have follow-up appointment scheduled with our office in 2 weeks postoperatively. 11. Patient is okay for discharge if pain is adequately controlled, works with physical therapy anddoes well, and is okay per medicine doctors instructions. 12. Disposition: Patient is doing well at this time. Patient states that she is ready to go home and get some rest. Patient will start outpatient physical therapy after 2-week follow-up appointment with our office. Patient is to follow-up per postoperative instructions. Patient will continue with ferrous sulfate and folic acid and get labs with primary care provider in roughly 1 week. Patient will continue with UltraSling at all times. There will be no range of motion of operative shoulder for 2 weeks postoperatively. Will follow-up with patient in 2 weeks postoperatively. Patient was encouraged to call withany questions, concerns, new problems. 09/11/24 0845 Cosigner Signature (if applicable): CC: ~ Signed ADDENDUM by TOSIN Calderon on 09/11/24 at 0930 Addendum Hospitalist did state that at this time patient was medically stable and was okay for discharge from a medical standpoint at this point. 09/11/24 0930 Cosigner Signature (if applicable): cc: ~* Signed [facility]07-08-2025 Discharge summary [facility] Medical Records Department [address] [place] [address] Instructions for Home/Discharge Instructions 09/11/2446 MR#: [id number] Acct: [id number] Name: ELOISA TSANG Rep #:[id number] : 1950 74 From: Naty LEAHY PCP: Dr. Teodoro Farias MD Status :ADM MARISOL Discharge Instructions Diet Discharge Diet: No restrictions DC O2, CPAP, BIPAP needs Home O2 Discharge instructions: No Dressing / Incision Discharge Activity: - (Use UltraSling at all times. No use of operative shoulder for 2 weeks postoperatively. Okay to take sling off to work on elbow range of motion and pendulum exercises 2-3 times daily. Physical therapy will start after 2-week follow-up appointment.) Weight Bearing Status: No weight bearing (On right shoulder.) Dressing / Incision Call your doctor if your incision/area has: Continuous Slow Oozing, Sudden Increased Bleeding, Increased Pain/ Swelling, Increased Redness, Foul Smelling Discharge and Swelling at the incision site Call your doctor if you observe: Fever of 101 or Higher, Coldness, Increased Pain, Numbness or Tingling, Change in Color, Inability to urinate, Inability to have a bowel movement, Using more than 1 pad per hour, Shortness of breath, Dizziness, Fainting spells, Swelling in the ankles, Chest pain, Increased palpitations (irregular heartbeat), Calf discomfort and Uncontrolled pain Remove Dressing in: 5 days (Patient can remove dressing on postoperative day 5. Steri-Strips are present under the dressing and patient was educated to leave Steri-Strips alone and allow them to falloff on their own.) Cleanse incision/area with: Soap & Water Additional Dressing/Incision Instructions:: No soaking, submerging of incision for 6 weeks postoperatively. No lotions, salves, oils over incisions for 6 weeks postoperatively. OARRS report was checked and reviewed in office today. Follow Up Care Test Results: Test results from this visit will be discussed in further detail at your follow- up appointment, if applicable. Discharge Plan Admission Admit Date/Time: 09/10/24 07:32 Attending Provider: Mike,Corey Primary Care Provider: Teodoro Farias Consulting Providers: Lisbeth Lopez Discharge Orders/Prescriptions Prescriptions: New acetaminophen 500 mg Tablet 1,000 mg PO Q8H Qty: 0 0RF aspirin 81 mg capsule 81 mg PO BID 30 Days Qty: 60 0RF famotidine 20 mg Tablet 20 mg PO DAILY 30 Days Qty: 30 0RF oxycodone 5 mg Tablet 5 - 10 mg PO Q4H PRN PRN (Reason: As needed for pain) 7 Days Qty: 42 0RF Continued omeprazole 40 mg capsule,delayed release(DR/EC) 40 mg PO DAILY losartan 100 mg tablet 100 mg PO DAILY metformin 500 mg tablet extended release 24 hr 500 mg PO BID calcium carbonate-vitamin D3 [Calcium 600 with Vitamin D3] 600 mg-12.5 mcg (500 unit) capsule 1 cap PO BID pramipexole 0.5 MG tablet 0.5 mg PO BID zqeebnzuxmnc-Ji-thvs-minerals Tablet 1 tab PO DAILY citalopram 20 mg tablet 20 mg PO QHS levothyroxine 125 mcg tablet 125 mcg PO MOTUWETHFR ferrous sulfate [Feosol] 325 mg (65 mg iron) tablet 325 mg PO QDAY ascorbic acid (vitamin C) 500 mg capsule 500 mg PO DAILY levothyroxine 125 mcg capsule 62.5 mcg PO DAILY atorvastatin 80 mg tablet 80 mg PO QHS Qty: 90 3RF carvedilol 12.5 mg tablet 12.5 mg PO BID Qty: 180 3RF clopidogrel 75 mg tablet 75 mg PO DAILY Qty: 90 3RF spironolactone 25 mg tablet 25 mg PO DAILY Qty: 30 6RF Held aspirin 81 mg Tablet,Delayed Release (Dr/Ec) 81 mg PO DAILY@0800 Qty: 0 0RF Hold Instructions: Resume on 09/11/24. No Action acetaminophen 500 MG tablet 500 mg PO BID PRN PRN (Reason: Pain Or Fever) Other Ambulatory Orders: 12 Lead EKG (Routine) Timeframe: 20240816 Location: None Selected Ordered By: Dr. Corey Mckeon CBC W/Diff, Automated (Routine) Timeframe: 1 Week Facility: [facility] - Location: Laboratory Ordered By: Naty Calvo Referrals / Follow Up: Teodoro Farias MD [Primary Care Provider] - Disposition Disposition (needs filled in before D/C Order can be placed): Home, Self Care 09/11/24 0901Naty LEAHY CC: Dr. Lisbeth Lopez MD; Dr. Teodoro Farias MD ~ Signed [facility]07-07-2025 Consult note Author Regina Sawyer [facility] Note Date/Time September 10, 2024 4:14p m [facility] Medical Records Department [address] [place] [address] Consultation - Hospitalist 09/10/24 1607 MR#: [id number] Acct: [id number] Name: ELOISA TSANG Rep #:[id number] : 1950 74 From: Regina Sawyer MD PCP: Dr. Teodoro Farias MD Status :ADM IN [id number] Assessment & Plan Assessment/Plan (1) Type 2 diabetes mellitus: (2) Stented coronary artery: PLAN: Plan #Hx of CAD -w/ previous stenting -Continue home atorvastatin, beta-richie, resume aspirin and Plavix when okay to do so by primary team #Hypothyroidism -Continue Synthroid #Type 2 diabetes mellitus -Glucose checks and sliding scale insulin - Hold home oral hypoglycemics until discharge #Hypertension - Continue carvedilol, hold losartan and spironolactone to allow room for pain control, add back as tolerated #GERD -Continue PPI #Depression/anxiety -Continue home medications # Restless leg syndrome -continue patient's home medication regimen # Right primary osteoarthritis with glenoid erosion - Status post right reverse total shoulder replacement with Dr. Mckeon 09/10/2024 - PT/OT - Management/pain management per primary #DVT ppx: Timing and agent at the discretion of primary team Regina Sawyer MD Time spent in the patient's overall evaluation, decision-making process, review of diagnostic data, adjustment of management, discussion with other providers, nursing and ancillary staff involved in patient's care documentation, 15 Minutes HPI Consult Data Date of Consult: 09/10/24 HPI Narrative Reason for Consultation: Postop medical management HPI Narrative: ELOISA TSANG, is a 74 F with a history of coronary artery disease with stenting, hypothyroidism, diffuse, depression, GERD, restless leg syndrome who presented [facility] ED 09/10/2024 for right shoulder primary osteoarthritis with operative management of right reverse total shoulder replacement. Hospitalist consulted for postop medical management. Patient evaluated bedside, reports there is a little bit sore is causing her low bit of a cough but no shoulder pain no other acute complaints [facility] Medical History Wears glasses Arthritis Low iron Restless legs Gastric reflux Non-smoker Shortness of breath on exertion History of echocardiogram History of stress test History of Holter monitoring Cardiology follow-up encounter History of heart attack Ischemic cardiomyopathy Atherosclerosis of coronary artery of [place] heart without angina pectoris Stage 3b chronic kidney disease (CKD) Anemia Dyslipidemia ST elevation (STEMI) myocardial infarction (~03/09/23) Benign breast cyst in female History of breast cancer Breast lump in female Sleep-disordered breathing Trimalleolar fracture of right ankle Hypothyroidism Type 2 diabetes mellitus Hypertension Thyroid disease Hyperlipidemia Depression Skin cancer Breast cancer 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 Home Medications ?Medication ?Instructions ?Recorded ?Last Taken ?Type pramipexole 0.5 mg tablet 0.5 mg PO BID restless legs 06/02/16 05/16/17 07:30 History 0.5 MG acetaminophen 500 mg tablet 500 mg PO BID PRN PRN Pain Or Fever 08/14/19 Unknown History citalopram 20 mg tablet 20 mg PO QHS depression 06/28 Unknown History levothyroxine 125 mcg tablet 125 mcg PO MOTUWETHFRSA t hyroid 03/10/23 09/10/24 06:30 History aspirin 81 mg tablet,delayed 81 mg PO DAILY@0800 #0 ta bs 03/11/23 09/10/24 06:30 Rx release losartan 100 mg tablet 100 mg PO DAILY 04/05/2309/28 06:30 History metformin 500 mg tablet,extended 500 mg PO BID 4 Unknown History release 24 hr omeprazole 40 mg capsule,delayed 40 mg PO DAILY 09/10/24 06:30 History release calcium 600 mg (as 1 cap PO BID 07/04/23 Unknow n History carbonate)-vitamin D3 12.5 mcg (500 unit) capsule (Calcium with Vit D3) hjxsfcsbljcz-Dg-yflk-minerals 1 tab PO DAILY vitamin 0 07/04/23 Unknown History atorvastatin 80 mg tablet 80 mg PO QHS #90 tabs Unknown Rx carvedilol 12.5 mg tablet 12.5 mg PO BID #180 tabs 09/10/24 06:30 Rx clopidogrel 75 mg tablet 75 mg PO DAILY #90 tabs 03/0809/05/24 Rx spironolactone 25 mg tablet 25 mg PO DAILY #30 tabs Unknown Rx ascorbic acid (vitamin C) 500 mg 500 mg PO DAILY SUPPL EMENT 08/13/24 Unknown History capsule ferrous sulfate 325 mg (65 mg 325 mg PO QDAY 08/13/24 Unknown History iron) tablet (Feosol) levothyroxine 125 mcg capsule 62.5 mcg PO DAILY BAXTER 11/29 Unknown History Allergy/AdvReac Type Severity Reaction Status Date / Time Penicillins (PCN) Allergy Severe Hives Verified 08/13/24 13:00 bee venom protein (honey bee) Allergy Anaphylaxis Verified 08/13/24 13:00 Family History Mother Heart disease Breast cancer Lung cancer Hyperlipidemia Arthritis Diabetes Hypertension Kidney disease CAD (coronary artery disease) CABG x4 Father Cancer Sister Diabetes Hypertension Hyperlipidemia Surgical History History of cardiac catheterization Stented coronary artery (03/09/22) Hx of colonoscopy History of ankle surgery History of Mohs micrographic surgery for skin cancer History of reconstruction of right breast Hx of right mastectomy Status post open reduction with internal fixation (ORIF) of fracture of ankle Hx of tonsillectomy Social History Smoking Status: Never smoker second hand exposure: No alcohol intake: never substance use type: does not use caffeine: Yes what type of physical activity do you participate in: none frequency: does not exercise ROS ROS Narrative Denies chest pain, shortness of breath, pain, nausea or vomiting, denies any other acute complaints Physical Exam Narrative General: Alert, oriented, no apparent distress HEENT: Atraumatic, normocephalic Eyes: extraocular movements grossly intact Neck: Supple Respiratory: normal respiratory effort Cardiovascular: no edema appreciated GI: nondistended Extremities: Right upper extremity in sling otherwise moving all extremities Neuro: No overt focal neurological deficits Psych: Cooperative Lab / Micro Data 08/16/24 12:24 08/16/24 12:24 Labs: Laboratory Results - last 24 hr 09/10/24 09:27: POC Glucose 122 H Imaging Radiology Impression Shoulder X-Ray 09/10/24 13:35 IMPRESSION: Status post total reverse shoulder arthroplasty with well-positioned hardware without obvious complication. Reading Location: [facility] Charges/Coding Visit Charges Office Visits / Consults: 66566 OV L2 Est 10min 09/10/24 1614 <Electronically signed by Regina Sawyer MD> Cosigner Signature (if applicable): CC: Dr. Teodoro Farias MD; Dr. Corey Mckeon MD~ Signed [facility] Work Phone: 1(146) 362-244907-07-2025 Consult note Author Bjorn pranay [facility] Note Date/Time September 10, 2024 3:10p m [facility] Medical Records Department [address] [place] [address] Anesthesia Postop Eval II 09/10/24 1510 MR#: [id number] Acct: [id number] Name: ELOISA TSANG Rep #:[id number] 8 : 1950 74 From: Bjorn Davis MD PCP: Dr. Teodoro Farias MD Status :[facility] [place] C Location: [place] [address]- Anesthesia Postop Eval I Sum Postop Eval Completion status Anesthesia document: Postop Eval 1 completed: Yes Anesthesia Postop Eval I Summary Anesthesia Postop Eval I Summary: Anesthesia Postop Eval I: Assessment Summary 3 Airway patent Yes 09/10/24 13:23 ASSISTANT AT SURGERY.JCLI Spontaneous unlabored Yes 09/10/24 13:23 ASSISTANT AT SURGERY.JCLI respirations Mental status Awake 09/10/24 13:23 ASSISTANT AT SURGERY.JCLI nausea No 09/10/24 13:23 ASSISTANT AT SURGERY.JCLI Vomiting No 09/10/24 13:23 ASSISTANT AT SURGERY.JCLI Anesthesia Postop Eval I: Fluid Summary Crystalloid volume administer 1,500 09/10/24 13:23 ASSISTANT AT SURGERY.JCLI (ml) Colloids volume administered ( ml) Blood Product volume administered (ml) Total IV fluid infused 1,500 09/10/24 13:23 ASSISTANT AT SURGERY.JCLI Anesthesia Postop Eval I: Summary Notes Anesthesia Complication No 09/10/24 13:23 ASSISTANT AT SURGERY.MAHENDRA Anesthesia Complication Comment: Post-operative progress note Anesthesia: Postop Eval II Evaluation Mental status: Awake and Calm Pain Level: 1 nausea: No Vomiting: No 09/10/24 1510 <Electronically signed by Bjorn Davis MD > Date _ Bjorn Davis MD Cosigner Signature: Date CC: ~ Signed [facility] Work Phone: [phone]) 213-264607-07-2025 Consult note [facility] Medical Records Department [address] [place] [id number] Consultation - Hospitalist 09/10/24 1607 MR#: [id number] Acct: [id number] Name: ELOISA TSANG SUE Rep #:[id number] : 1950 74 From: Regina Sawyer MD PCP: Dr. Teodoro Farias MD Status :ADM [place] Location: [place] [address]1 Assessment & Plan Assessment/Plan (1) Type 2 diabetes mellitus: (2) Stented coronary artery: PLAN: Plan #Hx of CAD -w/ previous stenting -Continue home atorvastatin, beta-richie, resume aspirin and Plavix when okay to do so by primary team #Hypothyroidism -Continue Synthroid #Type 2 diabetes mellitus -Glucose checks and sliding scale insulin - Hold home oral hypoglycemics until discharge #Hypertension - Continue carvedilol, hold losartan and spironolactone to allow room for pain control, add back astolerated #GERD -Continue PPI #Depression/anxiety -Continue home medications # Restless leg syndrome -continue patient's home medication regimen # Right primary osteoarthritis with glenoid erosion - Status post right reverse total shoulder replacement with Dr. Mckeon 09/10/2024 - PT/OT - Management/pain management per primary #DVT ppx: Timing and agent at the discretion of primary team Regina Sawyer MD Time spent in the patient's overall evaluation, decision-making process, review of diagnostic data,adjustment of management, discussion with other providers, nursing and ancillary staff involved in patient's care documentation, 15 Minutes HPI Consult Data Date of Consult: 09/10/24 HPI Narrative Reason for Consultation: Postop medical management HPI Narrative: ELOISA TSANG, is a 74 F with a history of coronary artery disease with stenting, hypothyroidism, diffuse, depression, GERD, restless leg syndrome who presented [facility] ED 09/10/2024for right shoulder primary osteoarthritis with operative management of right reverse total shoulder replacement. Hospitalist consulted for postop medical management. Patient evaluated bedside, reports there is a little bit sore is causing her low bit of a cough but no shoulder pain no other acute complaints [facility] History Wears glasses Arthritis Low iron Restless legs Gastric reflux Non-smoker Shortness of breath on exertion History of echocardiogram History of stress test History of Holter monitoring Cardiology follow-up encounter History of heart attack Ischemic cardiomyopathy Atherosclerosis of coronary artery of [place] heart without angina pectoris Stage 3b chronic kidney disease (CKD) Anemia Dyslipidemia ST elevation (STEMI) myocardial infarction (~03/09/23) Benign breast cyst in female History of breast cancer Breast lump in female Sleep-disordered breathing Trimalleolar fracture of right ankle Hypothyroidism Type 2 diabetes mellitus Hypertension Thyroid disease Hyperlipidemia Depression Skin cancer Breast cancer 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 Home Medications ?Medication ?Instructions ?Recorded ?Last Taken ?Type pramipexole 0.5 mg tablet 0.5 mg PO BID restless legs 06/02/16 05/16/17 07:30 History 0.5 MG acetaminophen 500 mg tablet 500 mg PO BID PRN PRN Pain Or Fever 08/14/19 Unknown History citalopram 20 mg tablet 20 mg PO QHS depression 06/28 Unknown History levothyroxine 125 mcg tablet 125 mcg PO MOTUWETHFRSA t hyroid 03/10/23 09/10/24 06:30 History aspirin 81 mg tablet,delayed 81 mg PO DAILY@0800 #0 ta bs 03/11/23 09/10/24 06:30 Rx release losartan 100 mg tablet 100 mg PO DAILY 04/05/2309/28 06:30 History metformin 500 mg tablet,extended 500 mg PO BID 4 Unknown History release 24 hr omeprazole 40 mg capsule,delayed 40 mg PO DAILY 09/10/24 06:30 History release calcium 600 mg (as 1 cap PO BID 07/04/23 Unknow n History carbonate)-vitamin D3 12.5 mcg (500 unit) capsule (Calcium with Vit D3) macmmjrzwcck-Mh-smbt-minerals 1 tab PO DAILY vitamin 0 07/04/23 Unknown History atorvastatin 80 mg tablet 80 mg PO QHS #90 tabs Unknown Rx carvedilol 12.5 mg tablet 12.5 mg PO BID #180 tabs 09/10/24 06:30 Rx clopidogrel 75 mg tablet 75 mg PO DAILY #90 tabs 03/0809/05/24 Rx spironolactone 25 mg tablet 25 mg PO DAILY #30 tabs Unknown Rx ascorbic acid (vitamin C) 500 mg 500 mg PO DAILY SUPPL EMENT 08/13/24 Unknown History capsule ferrous sulfate 325 mg (65 mg 325 mg PO QDAY 08/13/24 Unknown History iron) tablet (Feosol) levothyroxine 125 mcg capsule 62.5 mcg PO DAILY BAXTER 11/29 Unknown History Allergy/AdvReac Type Severity Reaction Status Date / Time Penicillins (PCN) Allergy Severe Hives Verified 08/13/24 13:00 bee venom protein (honey bee) Allergy Anaphylaxis Verified 08/13/24 13:00 Family History Mother Heart disease Breast cancer Lung cancer Hyperlipidemia Arthritis Diabetes Hypertension Kidney disease CAD (coronary artery disease) CABG x4 Father Cancer Sister Diabetes Hypertension Hyperlipidemia Surgical History History of cardiac catheterization Stented coronary artery (03/09/22) Hx of colonoscopy History of ankle surgery History of Mohs micrographic surgery for skin cancer History of reconstruction of right breast Hx of right mastectomy Status post open reduction with internal fixation (ORIF) of fracture of ankle Hx of tonsillectomy Social History Smoking Status: Never smoker second hand exposure: No alcohol intake: never substance use type: does not use caffeine: Yes what type of physical activity do you participate in: none frequency: does not exercise ROS ROS Narrative Denies chest pain, shortness of breath, pain, nausea or vomiting, denies any other acute complaints Physical Exam Narrative General: Alert, oriented, no apparent distress HEENT: Atraumatic, normocephalic Eyes: extraocular movements grossly intact Neck: Supple Respiratory: normal respiratory effort Cardiovascular: no edema appreciated GI: nondistended Extremities: Right upper extremity in sling otherwise moving all extremities Neuro: No overt focal neurological deficits Psych: Cooperative Lab / Micro Data 08/16/24 12:24 08/16/24 12:24 Labs: Laboratory Results - last 24 hr 09/10/24 09:27: POC Glucose 122 H Imaging Radiology Impression Shoulder X-Ray 09/10/24 13:35 IMPRESSION: Status post total reverse shoulder arthroplasty with well-positioned hardware without obvious complication. Reading Location: [facility] Charges/Coding Visit Charges Office Visits / Consults: 75710 OV L2 Est 10min 09/10/24 1614 Cosigner Signature (if applicable): CC: Dr. Teodoro Farias MD; Dr. Corey Mckeon MD~ Signed [facility]07-07-2025 Consult note Author Alexy Jo [facility] Note Date/Time September 10, 2024 1:23p m [facility] Medical Records Department [address] [place] [address] Anesthesia Postop Eval I 09/10/24 1322 MR#: [id number] Acct: [id number] Name: ELOISA TSANG SUE Rep #:[id number] : 1950 74 From: Alexy He PCP: Dr. Teodoro Farias MD Status :REG SDC Y Race: C Location: [place] [address] Anesthesia: Postop Eval I Current Vital Signs Temperature: 36.8 F Pulse Rate: 78 Blood Pressure: 150/80 Respiratory Rate: 18 Pulse Ox: 98 Oxygen Delivery Method: Room Air Assessment Airway patent: Yes Spontaneous unlabored respirations: Yes Mental status: Awake nausea: No Vomiting: No Anesthesia Complication: No Fluid Hydration Crystalloid volume administer (ml): 1,500 Total IV fluid infused: 1,500 Progress Note Anesthesia document: Postop Eval 1 completed: Yes 09/10/24 1323 <Electronically signed by Alexy Click C RNA> Date _ Alexy Click ASSISTANT AT SURGERY Cosigner Signature: Date CC: ~ Signed [facility] Work Phone: 1(858) 980-372607-07-2025 Consult note [facility] Medical Records Department [address] [place] [address] Anesthesia Postop Eval II 09/10/24 1510 MR#: [id number] Acct: [id number] Name: ELOISA TSANG SUE Rep #:[id number] : 1950 74 From: Bjorn Davis MD PCP: Dr. Teodoro Farias MD Status :REG SDC Y Race: C Location: [place] [address] Anesthesia Postop Eval I Sum Postop Eval Completion status Anesthesia document: Postop Eval 1 completed: Yes Anesthesia Postop Eval I Summary Anesthesia Postop Eval I Summary: Anesthesia Postop Eval I: Assessment Summary 3 Airway patent Yes 09/10/24 13:23 ASSISTANT AT SURGERY.JCLI Spontaneous unlabored Yes 09/10/24 13:23 ASSISTANT AT SURGERY.JCLI respirations Mental status Awake 09/10/24 13:23 ASSISTANT AT SURGERY.JCLI nausea No 09/10/24 13:23 ASSISTANT AT SURGERY.JCLI Vomiting No 09/10/24 13:23 ASSISTANT AT SURGERY.JCLI Anesthesia Postop Eval I: Fluid Summary Crystalloid volume administer 1,500 09/10/24 13:23 ASSISTANT AT SURGERY.JCLI (ml) Colloids volume administered ( ml) Blood Product volume administered (ml) Total IV fluid infused 1,500 09/10/24 13:23 ASSISTANT AT SURGERY.JCLI Anesthesia Postop Eval I: Summary Notes Anesthesia Complication No 09/10/24 13:23 ASSISTANT AT SURGERY.JCLI Anesthesia Complication Comment: Post-operative progress note Anesthesia: Postop Eval II Evaluation Mental status: Awake and Calm Pain Level: 1 nausea: No Vomiting: No 09/10/24 1510 > Date _ Bjorn Lewisigner Signature: Date CC: ~ Signed [facility]07-07-2025 Radiology Diagnostic study note [facility] Imaging Services [address] [place] [address] Shoulder min 2 Views MR#: [id number] Acct: [id number] Name: ELOISA TSANG SUE Rep #: [id number] : 1950 F 74 From: Pet er Peer DO PCP: Dr. Teodoro Farias MD Status: [facility] Study:Shoulder min 2 Views Date of Exam: 09/10/24 Exam# [id number] Ordering Dr: Luke Mckeon MD PROCEDURE: SHOULDER MIN 2 VIEWS 09/10/2024 REASON FOR EXAM: POST OP X-RAY Right shoulder status post total reverse arthroplasty TECHNIQUE: SHOULDER MIN 2 VIEWS COMPARISON: None. FINDINGS: Bones: Normal mineralization hardware is well-positioned, intact and without obvious complication. Soft tissues: Unremarkable Other: RAD/Shoulder min 2 Views IMPRESSION: Status post total reverse shoulder arthroplasty with well-positioned hardware without obvious complication. Reading Location: [facility]- CC: Dr. Teodoro Farias MD; Dr. Corey Mckeon MD ~ Manager Requirements: Signed [facility]07-07-2025 Procedure note [facility] Medical Records Department [address] [place] [address] Operative Report 09/10/24 1210 MR#: [id number] Acct: [id number] Name: ELOISA TSANG SUE Rep #:[id number] : 1950 74 From: Corey Ortega PCP: Dr. Teodoro Farias MD Status :[place] [facility] Location: [address] 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 total shoulder replacement furniture sprayer: Yes Disabilities Services Officer: Naty Calvo Tasks completed by machinist first class: Other (See body of operative report) Additionalassistant?: No Type of Anesthesia: General RN Documented Start/Stop Times: Operation Date: 09/10/24 10:30 Case Time Into Pre-Op 09/10/24 08:23 Anesthesia Start 09/10/24 10:47 Into Room 09/10/24 10:47 Procedure Start 09/10/24 11:24 Procedure End 09/10/24 13:09 Out of Room 09/10/24 13:17 Anesthesia End 09/10/24 13:18 Into Recovery 09/10/24 13:20 Procedure Start Time: 11:24 Procedure Stop Time: 13:09 Select all DRAINS/GRAFTS/IMPLANTS that apply: Prosthetic device Prosthetic device details: See bodyof operative report Special Medications: Ancef, vancomycin, 2 g TXA lavage Estimated Blood Loss: 250 mL Fluids Replaced: 1200 mL crystalloid Specimen collected: Yes Description of specimen(s) removed: Bony cuts Description of surgery: Components used 1. Tournier perform glenoid 25 mm, +3 mm baseplate 2. Tournier perform 36 mm, 0 mm Glenosphere 3. Tournier perform 36 mm, 0 mm humeral liner retentive 4. Tournier perform humeral stem primary press-fit 3 size Brief history/Operative indications: 74 yo f with history of R shoulder pain and cuff tear arthropathy. Patient failed conservative measures as mentioned in the H&P. After discussion of risk and benefits of reverse total shoulder replacement including but not limited to blood loss, DVTs, PEs, nerve vessel damage, infection, general risk of anesthesia including loss of life, instability and stiffness patient demonstrating understanding wish to proceed was able to sign informed consent. Medical clearance was obtained. Procedure: On the date of the procedure, patient's R upper extremity was marked in the preoperative area. Patient was taken back to the operating room where they wereplaced on the table in the supine position. Anesthesia assumed control of the C-spine and airway, then administered anesthetic. All bony prominences were identified well-padded, the head was secured and the patient was placed in the beachchair position at about 35? inclination. Anesthesia remained in control ofthe C-spine airway throughout the remainder of the procedure. Patient was then appropriately fastened to the table and the R upper extremity was prepped in a sterile fashion. The surgeons then scrubbed. Upon reentering the room, the R upper extremity was draped in a sterile fashion and the incision was marked out. Timeout was called, everyone agreed upon the side, the site, the procedure to be performed, patient identity and antibiotics given. Incision was taken down through skin and subcutaneous tissue, fat down to fascia. The stripe of the deltopectoral interval and cephalic vein were identified and blunt dissection was used to retract the deltoid. The cephalic vein was retracted laterally. Clavipectoral fascia was then incised and a cobraretractor was placed in the wound. The proximal onethird of the pectoralis major insertion was released. Pectoralis tendon insertion was used to tenode sedthe biceps tendon which was identified in the bicipital groove. Tenodesis was done with #1 Vicryl. Proximally we followed the biceps tendon after transectingit into the rotator interval. The rotator interval was split and the arm was externally rotated. The split was 1 cm medial to the bicipitalgroove. Subscapularis tendon was released. We released down the anterior portion of thehumeral headand a prajapati elevator was used to release the inferior portion of the humeral head. The arm was externally rotated and the shoulder was dislocated. The humeral head was then cut at its natural retroversion. Once his humeral head cut was made humerus was retracted out of the way and the glenoid was exposed. After exposing the glenoid, the labrum and the remaining proximal biceps were debrided. At this time we are able to view the entire outer edge ofthe glenoid. A central pin was placed we sequentially reamed over this central pin to 25mm. Once this was completed the central screw was measured and found to be. The glenoid baseplate was screwed into place. Wound was closely irrigated out with normal saline we then drilled sequentially for 2 screws. Screws were placed superiorly and inferiorly and tightened down the screws. Once the screws were appropriately tightened into place the glenoid baseplate was compressed against the exposed subchondral bone. A 36mm glenosphere was impacted into place engaging the Solomon taper and tightened the central screw. Attention was then turned towards the humerus. The humerus was again externallyrotated exposing theproximal portion of the humerus. Central canal finder was then used to open up the canal. We reamedto a size 3 reamer. We then broachedto a size 3 stem. We trialed the retentive 0mm liner. We obtained an adequate reduction at this time with a nice stable shoulder. Good internal rotation to the gluteus, forward elevation to 140?, external rotation to 20?. Final components were then assembled on the back table, trials were removed and the wound was copiously irrigated with normal saline after dislocating the shoulder. Once the final components were assembled they were impacted into place. Shoulder was then reduced and found to be stable with good range of motion. Subscapularis tendon repaired with #2 FiberWire. The wound was with chlorhexidine solution then copiously irrigated out with a 1L normal saline lavage. Thedeltopectoral fascia was then closed using #1 Vicryl skin was closed using 2-0 Vicryl interrupted sutures and final skin closure was done with 3-0 stratafix. Steri-Strips are placed for final skin closure. Sterile dressing was placed patient was then placed in a sling andawakened by anesthesia. Patient was thentransferred to the PACU for recovery. Postoperative plan: Patient will be admitted to the hospital overnight. They will get physical therapy starting in 2 weeks with normal postoperative regimen. Patient will be placed on [] for DVT prophylaxis. The first postoperative appointment will be in 2 weeks for wound check and initiation of phase 1 physical therapy. During the course of the procedure the physician tiler's assistant played a vital role. His intimate knowledge of my steps in the procedure aided in safe and expedient completion of the procedure. The PA played a vital rolls in positioning particularly in obtaining the appropriate beach chair position and securing the patient's body and head to the table. The PA was also vital in the retraction of soft tissues during the exposure and especially the glenoid work as this is a vital part of the procedure to prevent neurovascular damage. the PA was also vital and protecting soft tissues during times of bony cuts and reaming. He also played a vital role in closure with my direct supervision. The PA was also important during reduction and dislocation of the joint and trials intraoperatively. Surgical Findings: Stage IV osteoarthritis Complications Complications: No 09/10/24 1352 Cosigner Signature (if applicable): CC: Dr. Teodoro Farias MD; Dr. Corey Mckeon MD~ Signed [facility]07-07-2025 Consult note [facility] Medical Records Department [address] [place] [address] Anesthesia Postop Eval I 09/10/24 1322 MR#: [id number] Acct: [id number] Name: ELOISA TSANG Rep #:[id number] : 1950 74 From: Alexy He PCP: Dr. Teodoro Farias MD Status :[facility] Y Race: C Location: [place] [address] Anesthesia: Postop Eval I Current Vital Signs Temperature: 36.8 F Pulse Rate: 78 Blood Pressure: 150/80 Respiratory Rate: 18 Pulse Ox: 98 Oxygen Delivery Method: Room Air Assessment Airway patent: Yes Spontaneous unlabored respirations: Yes Mental status: Awake nausea: No Vomiting: No Anesthesia Complication: No Fluid Hydration Crystalloid volume administer (ml): 1,500 Total IV fluid infused: 1,500 Progress Note Anesthesia document: Postop Eval 1 completed: Yes 09/10/24 1323 RNA> Date _ Alexy Jo CRNA Cosigner Signature: Date CC: ~ Signed [facility]07-07-2025 History and physical note Author Naty Calvo [facility] Note Date/Time September 10, 2024 9:05a m [facility] Medical Records Department [address] [place] [address] History & Physical Exam 09/06/24 1702 MR#: [id number] Acct: [id number] Name: ELOISA TSANG Rep #:[id number] : 1950 74 From: Naty LEAHY PCP: Dr. Teodoro Farias MD [place] [facility] [place]: [place] [address] History and Physical History and Physical Patient Name: Eloisa TsangDOB: 1950 From: DATE OF PRE-OPERATIVE EXAM: 09/03/2024 DATE OF SURGERY: 09/10/2024 SCHEDULED PROCEDURE: Right reverse total shoulder arthroplasty HISTORY OF PRESENT ILLNESS: The patient presents with a chief complaint of right shoulder pain rated 8/10 atits most severe. The pain is longstanding but [...] not helpful. She previously found relief with qjeb-dmh-jglvlmw anti-inflammatory medications like Aleve. However, following a heart attack in March of the previous year, she was instructed to discontinue these medications due to her concurrent use of Plavix and daily aspirin. Currently, the patient is taking Tylenol, which provides minimal relief. The patient reports unsuccessful previous treatments including the shoulder injection and cyjv-xgo-tcuhjvq anti-inflammatory medications. Tylenol, which she is currently allowed [...] to auscultation no wheezes, rhonchi or rales. Cardiovascular: Auscultation of heart: regular rate and rhythm, no murmurs, gallops or rubs. Exam of carotid arteries: NORMAL Other: Gastrointestinal: Exam of abdomen: soft, nontender, nondistended bowel sounds present. Lymphatic: Palpation of nodes in neck: NORMAL Other: Palpation of nodes in Axillae: NORMAL Other: Neurological: see below Psychiatric: Orientation to time, place and person: NORMAL Other: Mood and affect: NORMAL Other: PHYSICAL EXAMINATION: - Right shoulder exam: - Forward elevation: 80 active and passive - Internal rotation: to beltline - External rotation: 10 - Muscle Strength: 4/5 with elevation, associated with pain IMAGING STUDIES: - Diagnostic Test Results Independent interpretation: - X-ray (date not specified): - Right shoulder: 100% axvr-zf-cdpb arthritis - Large bone spur and loose body in the inferior pouch of shoulder joint - Considerable bony wear on socket with posterior subluxation IMPRESSION: Acid reflux Diabetes History of heart attack Pretension Hypercholesterolemia Osteoporosis Thyroid disease Coronary artery disease History of breast cancer. History of heart stent. Primary osteoarthritis right shoulder Pain right shoulder Long-term anticoagulation use Overweight PLAN: The surgeon did discuss and review all treatment options with the patient including surgical versus nonsurgical. At this time the patient does wish to proceed with the above-stated procedure. Potential risks benefits and complications of the procedure were discussed and reviewed with the patient including but not limited to , infection, nerve and blood vessel damage, persistent pain, numbness, tingling, paresthesias, blood clot, pulmonary embolism, in the requirement for possible further surgery. Patient expressed full understanding. Has no further questions for the doctor. Does agree to proceed with the above-stated procedure, and has signed the appropriate surgery consent form. DVT prophylaxis: Patient will be taking aspirin 81 mg twice daily in addition toregular Plavix. Patient will also be wearing CARROLL hose for 2 weeks postoperatively. Pain medications: Patient will be taking Tylenol 1000 mg every 8 hours as well as oxycodone as needed for pain control. Patient will be on famotidine for 30 days postoperatively. Patient will be on Zofran as needed. Patient will be on senna as needed for postoperative constipation. ___ I have re-examined the patient. There are no clinical changes since date of exam. ___ See progress notes for changes. ___ Dictated on admission Date: Time: Signature: 09/06/24 1702 <Electronically signed by Naty LEAHY> Cosigner Signature (if applicable): CC: TOSIN Calderon; Dr. Teodoro Farias MD; Dr. Corey Mckeon MD~ Signed ADDENDUM by Dr. Corey Mckeon MD on 09/10/24 at 0904 Addendum I have examined the patient and the H&P has been reviewed. There are no clinicalchanges since date of exam. 09/10/24 0904<Electronically signed by Corey Mckeon MD> Cosigner Signature (if applicable): cc: TOSIN Calderon; Dr. Teodoro Farias MD; Dr. Corey Mckeon MD ~* Signed [facility] Work Phone: 1(734) 462-409007-07-2025 Consult note Author Bjorn Davis [facility] Note Date/Time September 10, 2024 8:39a m [facility] Medical Records Department [address] [place] [address] Pre-Anesthesia Evaluation 09/10/24 0838 MR#: [id number] Acct: [id number] Name: ELOISA TSANG SUE Rep #:[id number] : 1950 74 From: Bjorn Davis MD PCP: Dr. Teodoro Farias MD Status :REG SDC Y Race: C Location: [place] [address] ASA Classification* ASA Classification ASA Classification: 3 Assessment & Plan Anesthesia* Anesthesia Assessment Anesthesia Assessment: Discussed sedation and/or anesthesia options, risks, benefits, and alternatives with patient/parents/legal guardian/POA. Questions invited. The patient/parents/legal guardian/POA seems to understand and agrees to proceedwith anesthesia plan. Reviewed the physical assessment, medical history, allergy history and patient home medications list prior to surgery/procedure/anesthetic and documented any changes. Performed airway and anesthesia risk assessments. Anesthesia Type Anesthesia Type: General and Block Anesthesia Focused Assessment* Airway Assessment Mouth opens: >3 cm Mallampati Score: II Labs Anesthesia Preop lab: CBC WBC 9.5 K/mm3 (4.4-11.0) 08/16/24 12:08/16/24 RBC 3.93 M/mm3 (4.2-5.4) L 08/16/24 12:08/16/24 Hgb 11.8 g/dL (12.0-15.0) L 08/16/24 12: 5 Hct 36.0 % (37-47) L 08/16/24 12:08/16/24 Plt Count 295 K/mm3 (150-450) 08/16/24 12:08/16/24 CHEMISTRY Potassium 4.4 mmol/L (3.3-5.1) 08/16/24 12:08/16/24 Sodium 138 mmol/L (133-145) 08/16/24 12:08/16/24 Magnesium 1.6 mg/dL (1.5-2.2) 08/16/24 12:08/16/24 Phosphorus 4.5 mg/dL (2.5-4.9) 02/09/24 10:15 02/09/24 BUN 19 mg/dL (4-19) 08/16/24 12:08/16/24 Creatinine 0.92 mg/dL (0.70-1.20) 08/16/24 12:08/16/24 Glucose 182 mg/dL (70-99) H 08/16/24 12:08/16/24 POC Glucose 123 mg/dL (70-110) H 05/16/17 16:17 05/16/17 TSH 1.440 uIU/mL (0.300-4.200) 08/16/24 12:24 08/05 05/01 COAG PT 13.6 SECONDS (11.7-14.9) 05/17/17 05:04 Pre-Assessment Diagnosis/Proposed Procedure Planned Operative Procedure(s): (R) Total Shoulder Replacement, Reverse Anesthesia History 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: 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 Hx Hospitalization No 08/13/24 13:10 Any Problems [...] take am of surgery PONV PONV - 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: PONV - 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 Female Yes 08/13/24 13:10 HX of Motion Sickness Yes 08/13/24 13:10 HX of N/V After Surgery No 08/13/24 13:10 Non-Smoker Yes 08/13/24 13:10 Duration of Surgery greater Yes 08/13/24 13:10 than 60 minutes Number of Risk Factors 4 08/13/24 13:10 PONV Score Severe Risk 08/13/24 13:10 Height & Weight Height & Weight: Anesthesia: Height & Weight Height 5 ft 5 in 06/05/24 14:25 Respiratory Assessment Respiratory Assessment - 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: Respiratory Tract Infection Hx - 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 Hx Respiratory Tract Infection No 08/13/24 13:10 STOP Sleep Apnea STOP Sleep Apnea - 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: STOP Sleep Apnea - 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 Hx Hypertension Yes: PER PT, CONTROLLED ON [...] Tobacco Use History Tobacco Use History - 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: Tobacco Use 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 Specify any problems Hx of Preganancy in last 3 No 08/13/24 13:10 Months Nurse Filling Out Transfusion MGRIFFITH 08/13/24 13:10 & Questions: Date: 08/13/24 08/13/24 13:10 Time: 13:13 08/13/24 13:10 Patient unable to answer at this time (ie. 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 Hx Now No 08/13/24 13:10 Gestational Age (in weeks): EDC: Hx Hx Para Hx Section SAB Active Medications Active Medications: Current Medications Generic Name Dose Route Start Last Admin Trade Name Darling PRN Reason Stop Dose Admin Acetaminophen 1,000 mg 09/10/24 13:30 Acetaminophen 500 Mg Tablet PO 09/10/24 13:31 PREOP ONE Acetaminophen 1,000 mg 09/10/24 14:00 Acetaminophen 500 Mg Tablet PO Q8 NOLAN Aspirin 81 mg 09/10/24 10:00 Aspirin 81 Mg Tab.Chew PO BID NOLAN Tranexamic Acid 2,000 mg/ 0 mg 09/10/24 13:30 Sodium Chloride 100 ml OPERA.SITE 09/10/24 13:31 X1 ONE Sodium Chloride 77.9 ml/ 0 ml 09/10/24 13:30 Ropivacaine 200 mg/ OPERA.SITE 09/10/24 13:31 Epinephrine HCl 0.6 mg/ INTRAOP ONE Ketorolac Tromethamine 30 mg/ Morphine Sulfate 5 mg Dexamethasone Sodium Phosphate 10 mg 09/10/24 13:30 Dexamethasone 10 Mg/Ml Vial IV 09/10/24 13:31 INTRAOP ONE Enteral Nutritional Formula 237 ml 09/10/24 08:00 Ensure Surgery 237 Ml Liquid PO TIDCM [facility] Famotidine 20 mg 09/10/24 10:00 Famotidine 20 Mg Tablet PO DAILY [facility] Gabapentin 600 mg 09/10/24 13:30 Gabapentin 600 Mg Tablet PO 09/10/24 13:31 PREOP ONE Lactated Ringer's 1,000 mls @ 999 mls/hr 09/10/24 13:30 IV 09/10/24 14:30 .Q1H1M [facility] Cefazolin Sodium 2 gm/ Sodium 110 mls @ 150 mls/hr 09/10/24 13:30 Chloride IV 09/10/24 14:13 INTRAOP ONE Lactated Ringer's 1,000 mls @ 999 mls/hr 09/10/24 13:30 IV 09/10/24 14:30 .Q1H1M NOLAN Lactated Ringer's 1,000 mls @ 125 mls/hr 09/10/24 13:30 IV 09/10/24 21:29 .Q8H [facility] Vancomycin HCl 1,000 mg in 200 mls @ 200 mls/hr 09/10/24 13:30 Vancomycin IV 09/10/24 14:29 PREOP ONE Magnesium Sulfate 2 gm/ 104 mls @ 208 mls/hr 09/10/24 13:30 Dextrose IV 09/10/24 13:59 INTRAOP ONE Cefazolin Sodium 1 gm in 50 mls @ 100 mls/hr 09/10/24 07:35 IV 09/10/24 16:04 Q8H [facility] Insulin Human Lispro 1 - 6 unit 09/10/24 13:30 Insulin Lispro 100 Unit/Ml Insuln.Pen SC Q4H PRN PRN BG>/= 180, SEE PROTOCOL Protocol Ketorolac Tromethamine 15 mg 09/10/24 07:32 Ketorolac 15 Mg/Ml Vial IV 09/11/24 07:34 Q6H PRN PRN Pain Score 1-10 Morphine Sulfate 2 - 4 mg 09/10/24 07:32 Morphine 2 Mg/Ml Syringe IV Q2H PRN PRN Pain Score 4-10 Ondansetron HCl 4 mg 09/10/24 07:32 Ondansetron 4 Mg/2 Ml Vial IV Q6H PRN PRN NAUSEA/VOMITING Oxycodone HCl 5 - 10 mg 09/10/24 07:32 Oxycodone 5 Mg Tablet PO Q4H PRN PRN Pain Score 4-10 Promethazine HCl 12.5 mg 09/10/24 07:32 Promethazine 25 Mg Tablet PO Q6H PRN PRN NAUSEA/VOMITING Promethazine HCl 12.5 mg 09/10/24 07:32 Promethazine 25 Mg/Ml Syringe IM Q6H PRN PRN NAUSEA/VOMITING Senna/Docusate Sodium 2 tablet 09/10/24 10:00 Senna/Docusate Sodium 1 Tablet [facility] History Wears glasses Arthritis Low iron Restless legs Gastric reflux Non-smoker Shortness of breath on exertion History of echocardiogram History of stress test History of Holter monitoring Cardiology follow-up encounter History of heart attack Ischemic cardiomyopathy Atherosclerosis of coronary artery of [place] heart without angina pectoris Stage 3b chronic kidney disease (CKD) Anemia Dyslipidemia ST elevation (STEMI) myocardial infarction (~03/09/23) Benign breast cyst in female History of breast cancer Breast lump in female Sleep-disordered breathing Trimalleolar fracture of right ankle Hypothyroidism Type 2 diabetes mellitus Hypertension Thyroid disease Hyperlipidemia Depression Skin cancer Breast cancer 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 Home Medications ?Medication ?Instructions ?Recorded ?Last Taken ?Type pramipexole 0.5 mg tablet 0.5 mg PO BID restless legs 06/02/16 05/16/17 07:30 History 0.5 MG acetaminophen 500 mg tablet 500 mg PO BID PRN PRN Pain Or Fever 08/14/19 Unknown History citalopram 20 mg tablet 20 mg PO QHS depression 06/28 Unknown History levothyroxine 125 mcg tablet 125 mcg PO MOTUWETHFRSA t hyroid 03/10/23 Unknown History aspirin 81 mg tablet,delayed 81 mg PO DAILY@0800 #0 ta bs 03/11/23 Unknown Rx release losartan 100 mg tablet 100 mg PO DAILY 04/05/23 Unk nown History metformin 500 mg tablet,extended 500 mg PO BID 4 Unknown History release 24 hr omeprazole 40 mg capsule,delayed 40 mg PO DAILY Unknown History release calcium 600 mg (as 1 cap PO BID 07/04/23 Unknow n History carbonate)-vitamin D3 12.5 mcg (500 unit) capsule (Calcium with Vit D3) tmbaduavxgtr-Nz-bswq-minerals 1 tab PO DAILY vitamin 0 07/04/23 Unknown History atorvastatin 80 mg tablet 80 mg PO QHS #90 tabs Unknown Rx carvedilol 12.5 mg tablet 12.5 mg PO BID #180 tabs Unknown Rx clopidogrel 75 mg tablet 75 mg PO DAILY #90 tabs 03/08 Unknown Rx spironolactone 25 mg tablet 25 mg PO DAILY #30 tabs Unknown Rx ascorbic acid (vitamin C) 500 mg 500 mg PO DAILY SUPPL EMENT 08/13/24 Unknown History capsule ferrous sulfate 325 mg (65 mg 325 mg PO QDAY 08/13/24 Unknown History iron) tablet (Feosol) levothyroxine 125 mcg capsule 62.5 mcg PO DAILY BAXTER 11/29 Unknown History Allergy/AdvReac Type Severity Reaction Status Date / Time Penicillins (PCN) Allergy Severe Hives Verified 08/13/24 13:00 bee venom protein (honey bee) Allergy Anaphylaxis Verified 08/13/24 13:00 Family History Mother Heart disease Breast cancer Lung cancer Hyperlipidemia Arthritis Diabetes Hypertension Kidney disease CAD (coronary artery disease) CABG x4 Father Cancer Sister Diabetes Hypertension Hyperlipidemia Surgical History History of cardiac catheterization Stented coronary artery (03/09/22) Hx of colonoscopy History of ankle surgery History of Mohs micrographic surgery for skin cancer History of reconstruction of right breast Hx of right mastectomy Status post open reduction with internal fixation (ORIF) of fracture of ankle Hx of tonsillectomy Social History Smoking Status: Never smoker second hand exposure: No alcohol intake: never substance use type: does not use caffeine: Yes what type of physical activity do you participate in: none frequency: does not exercise Review of Systems (Anesthesia) ROS Narrative System reviewed and no additional complaints, except as documented. 09/10/24 0839 <Electronically signed by Bjorn Davis MD > Date _ Bjorn Davis MD Cosigner Signature: Date CC: ~ Signed [facility] Work Phone: 1(447) 650-213707-07-2025 Evaluation note* Diagnosis Onset Date Resolution Status Admit Date Anemia acute September 10, 2024 7:32am Status post reverse total arthroplasty of right shoulder acute September 10, 2024 7:32am Stented coronary artery March 09, 2022 chron ic September 10, 2024 7:32am Type 2 diabetes mellitus chronic September 10, 2024 7:32am [facility] Work Phone: 1(547) 473-684107-07-2025 Evaluation note* Diagnosis Onset Date Resolution Status Admit Date Anemia acute September 10, 2024 7:32am Status post reverse total arthroplasty of right shoulder acute September 10, 2024 7:32am Stented coronary artery March 09, 2022 chron September 10, 2024 7:32am Type 2 diabetes mellitus chronic September 10, 2024 7:32am Coronary artery disease chronic O ctober 2024 1:50pm Hyperlipidemia chronic December 202024 1:50pm Hypertension chronic December 1:50pm Mitral regurgitation chronic Octo 2024 1:50pm Stented coronary artery March 09, 2022 chron ic December 20, 2024 1:50pm Type 2 diabetes mellitus chronic December 20, 2024 1:50pm Ischemic cardiomyopathy resolved O ctober 2024 1:50pm [facility] Work Phone: 1(415) 601-197607-07-2025 History and physical note [facility] Medical Records Department [address] [place] [address] History & Physical Exam 09/06/24 1702 MR#: [id number] Acct: [id number] Name: ELOISA TSANG Rep #:[id number] : 1950 74 From: Naty LEAHY PCP: Dr. Teodoro Farias MD Status :[facility] Location: [place] [address] History and Physical History and Physical Patient Name: Eloisa TsangDOB: 1950 From: DATE OF PRE-OPERATIVE EXAM: 09/03/2024 DATE OF SURGERY: 09/10/2024 SCHEDULED PROCEDURE: Right reverse total shoulder arthroplasty HISTORY OF PRESENT ILLNESS: The patient presents with a chief complaint of right shoulder pain rated 8/10 atits most severe. The pain is longstanding but [...] approximately 8 years ago, which was not he lpful. She previously found relief with nbuv-tqg-bgfahmd anti-inflammatory medications like Aleve. However, following a heart attack in March of the previous year, she was instructed to discontinuethese medications due to her concurrent use of Plavix and daily aspirin. Currently, the patient is taking Tylenol, which provides minimal relief. The patient reports unsuccessful previous treatments including the shoulder injection and mywm-wpo-oqbdfju anti- inflammatory medications. Tylenol, which she is [...] Atorvastatin Calcium 80 mg daily, Pramipexole Dihydrochloride 0.5mg daily, Levothyroxine Sodium 125 mcg 1po qday, [...] to auscultation no wheezes, rhonchi or rales. Cardiovascular: Auscultation of heart: regular rate and rhythm, no murmurs, gallops or rubs. Exam of carotid arteries: NORMAL Other: Gastrointestinal: Exam of abdomen: soft, nontender, nondistended bowel sounds present. Lymphatic: Palpation of nodes in neck: NORMAL Other: Palpation of nodes in [place]: NORMAL Other: Neurological: see below Psychiatric: Orientation to time, place and person: NORMAL Other: Mood and affect: NORMAL Other: PHYSICAL EXAMINATION: - Right shoulder exam: - Forward elevation: 80 active and passive - Internal rotation: to beltline - External rotation: 10 - Muscle Strength: 4/5 with elevation, associated with pain IMAGING STUDIES: - Diagnostic Test Results Independent interpretation: - X-ray (date not specified): - Right shoulder: 100% vjkm-oi-used arthritis - Large bone spur and loose body in the inferior pouch of shoulder joint - Considerable bony wear on socket with posterior subluxation IMPRESSION: Acid reflux Diabetes History of heart attack Pretension Hypercholesterolemia Osteoporosis Thyroid disease Coronary artery disease History of breast cancer. History of heart stent. Primary osteoarthritis right shoulder Pain right shoulder Long-term anticoagulation use Overweight PLAN: The surgeon did discuss and review all treatment options with the patient including surgical versusnonsurgical. At this time the patient does wish to proceed with the above-stated procedure. Potential risks benefits and complications of the procedure were discussed and reviewed with the patient inc luding but not limited to , infection, nerve and blood vessel damage, persistent pain, numbness, tingling, paresthesias, blood clot, pulmonary embolism, in the requirement for possible further surgery. Patient expressed full understanding. Has no further questions for the doctor. Does agree to proceed with the above-stated procedure, and has signed the appropriate surgery consent form. DVT prophylaxis: Patient will be taking aspirin 81 mg twice daily in addition toregular Plavix. Patient will also be wearing CARROLL hose for 2 weeks postoperatively. Pain medications: Patient will be taking Tylenol 1000 mg every 8 hours as well as oxycodone as needed for pain control. Patient will be on famotidine for 30 days postoperatively. Patient will be on Zofran as needed. Patient will be on senna as needed for postoperative constipation. ___ I have re-examined the patient. There are no clinical changes since date of exam. ___ See progress notes for changes. ___ Dictated on admission Date: Time: Signature: 09/06/24 1702 Cosigner Signature (if applicable): CC: TOSIN Calderon; Dr. Teodoro Farias MD; Dr. Corey Mckeon MD~ Signed ADDENDUM by Dr. Corey Mckeon MD on 09/10/24 at 0904 Addendum I have examined the patient and the H&P has been reviewed. There are no clinicalchanges since date of exam. 09/10/24 0904 Cosigner Signature (if applicable): cc: TOSIN Calderon; Dr. Teodoro Farias MD; Dr. Corey Mckeon MD ~* Signed [facility]07-07-2025 Consult note [facility] Medical Records Department [address] [place] [address] Pre-Anesthesia Evaluation 09/10/24 0838 MR#: [id number] Acct: [id number] Name: ELOISA TSANG SUE Rep #:[id number] : 1950 74 From: Bjorn Davis MD PCP: Dr. Teodoro Farias MD Status :REG SDC Y Race: C Location: [place] [address]- ASA Classification* ASA Classification ASA Classification: 3 Assessment & Plan Anesthesia* Anesthesia Assessment Anesthesia Assessment: Discussed sedation and/or anesthesia options, risks, benefits, and alternatives with patient/parents/legal guardian/POA. Questions invited. The patient/parents/legal guardian/POA seems to understand and agrees to proceedwith anesthesia plan. Reviewed the physical assessment, medical history, allergy history and patient home medications list prior to surgery/procedure/anesthetic and documented any changes. Performed airway and anesthesia risk assessments. Anesthesia Type Anesthesia Type: General and Block Anesthesia Focused Assessment* Airway Assessment Mouth opens: >3 cm Mallampati Score: II Labs Anesthesia Preop lab: CBC WBC 9.5 K/mm3 (4.4-11.0) 08/16/24 12:08/16/24 RBC 3.93 M/mm3 (4.2-5.4) L 08/16/24 12:08/16/24 Hgb 11.8 g/dL (12.0-15.0) L 08/16/24 12: 5 Hct 36.0 % (37-47) L 08/16/24 12:08/16/24 Plt Count 295 K/mm3 (150-450) 08/16/24 12:08/16/24 CHEMISTRY Potassium 4.4 mmol/L (3.3-5.1) 08/16/24 12:08/16/24 Sodium 138 mmol/L (133-145) 08/16/24 12:08/16/24 Magnesium 1.6 mg/dL (1.5-2.2) 08/16/24 12:08/16/24 Phosphorus 4.5 mg/dL (2.5-4.9) 02/09/24 10:15 02/09/24 BUN 19 mg/dL (4-19) 08/16/24 12:08/16/24 Creatinine 0.92 mg/dL (0.70-1.20) 08/16/24 12:08/16/24 Glucose 182 mg/dL (70-99) H 08/16/24 12:08/16/24 POC Glucose 123 mg/dL (70-110) H 05/16/17 16:17 05/16/17 TSH 1.440 uIU/mL (0.300-4.200) 08/16/24:08/05 COAG PT 13.6 SECONDS (11.7-14.9) 05/17/17 05:04 03/13/ 18 Pre-Assessment Diagnosis/Proposed Procedure Planned Operative Procedure(s): (R) Total Shoulder Replacement, Reverse Anesthesia History 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: 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 Hx Hospitalization No 08/13/24 13:10 Any Problems [...] take am of surgery PONV PONV - 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: PONV - 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 Female Yes 08/13/24 13:10 HX of Motion Sickness Yes 08/13/24 13:10 HX of N/V After Surgery No 08/13/24 13:10 Non-Smoker Yes 08/13/24 13:10 Duration of Surgery greater Yes 08/13/24 13:10 than 60 minutes Number of Risk Factors 4 08/13/24 13:10 PONV Score Severe Risk 08/13/24 13:10 Height & Weight Height & Weight: Anesthesia: Height & Weight Height 5 ft 5 in 06/05/24 14:25 Respiratory Assessment Respiratory Assessment - 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: Respiratory Tract Infection Hx - 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 Hx Respiratory Tract Infection No 08/13/24 13:10 STOP Sleep Apnea STOP Sleep Apnea - 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: STOP Sleep Apnea - 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 Hx Hypertension Yes: PER PT, CONTROLLED ON [...] than talking or can be heard through closeddoors)? 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 Specify any problems Hx of Preganancy in last 3 No 08/13/24 13:10 Months Nurse Filling Out Transfusion MGRIFFITH 08/13/24 13:10 & Questions: Date: 08/13/24 08/13/24 13:10 Time: 13:13 08/13/24 13:10 Patient unable to answer at this time (ie. 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 Hx Now No 08/13/24 13:10 Gestational Age (in weeks): EDC: Hx Hx Para Hx Section SAB Active Medications Active Medications: Current Medications Generic Name Dose Route Start Last Admin Trade Name Freq PRN Reason Stop Dose Admin Acetaminophen 1,000 mg 09/10/24 13:30 Acetaminophen 500 Mg Tablet PO 09/10/24 13:31 PREOP ONE Acetaminophen 1,000 mg 09/10/24 14:00 Acetaminophen 500 Mg Tablet PO Q8 NOLAN Aspirin 81 mg 09/10/24 10:00 Aspirin 81 Mg Tab.Chew PO BID [facility] Tranexamic Acid 2,000 mg/ 0 mg 09/10/24 13:30 Sodium Chloride 100 ml OPERA.SITE 09/10/24 13:31 X1 ONE Sodium Chloride 77.9 ml/ 0 ml 09/10/24 13:30 Ropivacaine 200 mg/ OPERA.SITE 09/10/24 13:31 Epinephrine HCl 0.6 mg/ INTRAOP ONE Ketorolac Tromethamine 30 mg/ Morphine Sulfate 5 mg Dexamethasone Sodium Phosphate 10 mg 09/10/24 13:30 Dexamethasone 10 Mg/Ml Vial IV 09/10/24 13:31 INTRAOP ONE Enteral Nutritional Formula 237 ml 09/10/24 08:00 Ensure Surgery 237 Ml Liquid PO TIDCM [facility] Famotidine 20 mg 09/10/24 10:00 Famotidine 20 Mg Tablet PO DAILY [facility] Gabapentin 600 mg 09/10/24 13:30 Gabapentin 600 Mg Tablet PO 09/10/24 13:31 PREOP ONE Lactated Ringer's 1,000 mls @ 999 mls/hr 09/10/24 13:30 IV 09/10/24 14:30 .Q1H1M NOLAN Cefazolin Sodium 2 gm/ Sodium 110 mls @ 150 mls/hr 09/10/24 13:30 Chloride IV 09/10/24 14:13 INTRAOP ONE Lactated Ringer's 1,000 mls @ 999 mls/hr 09/10/24 13:30 IV 09/10/24 14:30 .Q1H1M [facility] Lactated Ringer's 1,000 mls @ 125 mls/hr 09/10/24 13:30 IV 09/10/24 21:29 .Q8H [facility] Vancomycin HCl 1,000 mg in 200 mls @ 200 mls/hr 09/10/24 13:30 Vancomycin IV 09/10/24 14:29 PREOP ONE Magnesium Sulfate 2 gm/ 104 mls @ 208 mls/hr 09/10/24 13:30 Dextrose IV 09/10/24 13:59 INTRAOP ONE Cefazolin Sodium 1 gm in 50 mls @ 100 mls/hr 09/10/24 07:35 IV 09/10/24 16:04 Q8H [facility] Insulin Human Lispro 1 - 6 unit 09/10/24 13:30 Insulin Lispro 100 Unit/Ml Insuln.Pen SC Q4H PRN PRN BG>/= 180, SEE PROTOCOL Protocol Ketorolac Tromethamine 15 mg 09/10/24 07:32 Ketorolac 15 Mg/Ml Vial IV 09/11/24 07:34 Q6H PRN PRN Pain Score 1-10 Morphine Sulfate 2 - 4 mg 09/10/24 07:32 Morphine 2 Mg/Ml Syringe IV Q2H PRN PRN Pain Score 4-10 Ondansetron HCl 4 mg 09/10/24 07:32 Ondansetron 4 Mg/2 Ml Vial IV Q6H PRN PRN NAUSEA/VOMITING Oxycodone HCl 5 - 10 mg 09/10/24 07:32 Oxycodone 5 Mg Tablet PO Q4H PRN PRN Pain Score 4-10 Promethazine HCl 12.5 mg 09/10/24 07:32 Promethazine 25 Mg Tablet PO Q6H PRN PRN NAUSEA/VOMITING Promethazine HCl 12.5 mg 09/10/24 07:32 Promethazine 25 Mg/Ml Syringe IM Q6H PRN PRN NAUSEA/VOMITING Senna/Docusate Sodium 2 tablet 09/10/24 10:00 Senna/Docusate Sodium 1 Tablet PO BID [facility] Medical History Wears glasses Arthritis Low iron Restless legs Gastric reflux Non-smoker Shortness of breath on exertion History of echocardiogram History of stress test History of Holter monitoring Cardiology follow-up encounter History of heart attack Ischemic cardiomyopathy Atherosclerosis of coronary artery of [place] heart without angina pectoris Stage 3b chronic kidney disease (CKD) Anemia Dyslipidemia ST elevation (STEMI) myocardial infarction (~03/09/23) Benign breast cyst in female History of breast cancer Breast lump in female Sleep-disordered breathing Trimalleolar fracture of right ankle Hypothyroidism Type 2 diabetes mellitus Hypertension Thyroid disease Hyperlipidemia Depression Skin cancer Breast cancer 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 Home Medications ?Medication ?Instructions ?Recorded ?Last Taken ?Type pramipexole 0.5 mg tablet 0.5 mg PO BID restless legs 06/02/16 05/16/17 07:30 History 0.5 MG acetaminophen 500 mg tablet 500 mg PO BID PRN PRN Pain Or Fever 08/14/19 Unknown History citalopram 20 mg tablet 20 mg PO QHS depression 06/28 Unknown History levothyroxine 125 mcg tablet 125 mcg PO MOTUWETHFRSA t hyroid 03/10/23 Unknown History aspirin 81 mg tablet,delayed 81 mg PO DAILY@0800 #0 ta bs 03/11/23 Unknown Rx release losartan 100 mg tablet 100 mg PO DAILY 04/05/23 Unk nown History metformin 500 mg tablet,extended 500 mg PO BID 4 Unknown History release 24 hr omeprazole 40 mg capsule,delayed 40 mg PO DAILY Unknown History release calcium 600 mg (as 1 cap PO BID 07/04/23 Unknow n History carbonate)-vitamin D3 12.5 mcg (500 unit) capsule (Calcium with Vit D3) ibbkvswymakh-Lu-aknf-minerals 1 tab PO DAILY vitamin 0 07/04/23 Unknown History atorvastatin 80 mg tablet 80 mg PO QHS #90 tabs Unknown Rx carvedilol 12.5 mg tablet 12.5 mg PO BID #180 tabs Unknown Rx clopidogrel 75 mg tablet 75 mg PO DAILY #90 tabs 03/08 Unknown Rx spironolactone 25 mg tablet 25 mg PO DAILY #30 tabs Unknown Rx ascorbic acid (vitamin C) 500 mg 500 mg PO DAILY SUPPL EMENT 08/13/24 Unknown History capsule ferrous sulfate 325 mg (65 mg 325 mg PO QDAY 08/13/24 Unknown History iron) tablet (Feosol) levothyroxine 125 mcg capsule 62.5 mcg PO DAILY BAXTER 11/29 Unknown History Allergy/AdvReac Type Severity Reaction Status Date / Time Penicillins (PCN) Allergy Severe Hives Verified 08/13/24 13:00 bee venom protein (honey bee) Allergy Anaphylaxis Verified 08/13/24 13:00 Family History Mother Heart disease Breast cancer Lung cancer Hyperlipidemia Arthritis Diabetes Hypertension Kidney disease CAD (coronary artery disease) CABG x4 Father Cancer Sister Diabetes Hypertension Hyperlipidemia Surgical History History of cardiac catheterization Stented coronary artery (03/09/22) Hx of colonoscopy History of ankle surgery History of Mohs micrographic surgery for skin cancer History of reconstruction of right breast Hx of right mastectomy Status post open reduction with internal fixation (ORIF) of fracture of ankle Hx of tonsillectomy Social History Smoking Status: Never smoker second hand exposure: No alcohol intake: never substance use type: does not use caffeine: Yes what type of physical activity do you participate in: none frequency: does not exercise Review of Systems (Anesthesia) ROS Narrative System reviewed and no additional complaints, except as documented. 09/10/24 0839 > Date _ Bjorn Wilkinson Signature: Date CC: ~ Signed [facility]07-03-2025 [facility] Medical Records Department [address] [place] [address] History Physical Exam 09/06/24 1702 MR#: [id number] Acct: [id number] Name: ELOISA TSANG Rep #: [id number] : 1950 74 From: Naty LEAHY PCP: Dr. Teodoro Farias MD Status:[facility] Location: [place] [address] History and Physical History and Physical Patient [...] not helpful. She previously found relief with tnop-kls-uiqufjd anti-inflammatory medications like Aleve. However, following a heart attack in March of the previous year, she was instructed to discontinue these medications due to her concurrent use of Plavix and daily aspirin. Currently, the patient is taking Tylenol, which provides minimal relief. The patient reports unsuccessful previous treatments including the shoulder injection and wuue-gzq-jlvvixu anti- inflammatory medications. Tylenol, which she is [...] to auscultation no wheezes, rhonchi or rales. Card (more content not included)...[facility]06-16-2025 Radiology Diagnostic study note [facility] Imaging Services [address] [place] [address] [id number] Extremity Upper without Contra MR#: [id number] Acct: [id number] Name: ELOISA TSANG SUE Rep #: [id number] : 1950 F 74 From: Apryl Sol MD PCP: Dr. Teodoro Farias MD Status: REG CL Study:Extremity Upper without Contra Date of Exam: 08/20/24 Exam# [id number] Ordering Dr: Luke Mckeon MD PROCEDURE: EXTREMITY [...] evidence of separation. There is a type 3acromion with impingement configuration. There is mild supraspinatus muscular atrophy visible. There is no visible pathologicadenopathy. Scar is noted in the right middle [...] 3 acromion with impingement configuration. Reading Location: [facility] CC: Dr. Teodoro Farias MD; Dr. Corey Mckeon MD ~ Manager Requirements: Signed [facility]06-12-2025 Hospital Discharge instructionsAmbulatory Orders* 12 Lead EKG [[facility]] Time Frame: 08/16/24, Location: None Selected [facility] Work Phone: 1(986) 235-548004-01-2025 Evaluation note* Diagnosis Onset Date Resolution Status Admit Date Coronary artery disease chronic A pril 2024 2:02pm Hyperlipidemia chronic June 05, 2024 2:02pm Hypertension chronic June 05, 025 2:02pm Mitral regurgitation chronic Apri l 2024 2:02pm Stented coronary artery March 09, 2022 chron ic June 05, 2024 2:02pm Type 2 diabetes mellitus chronic June 05, 2024 2:02pm Ischemic cardiomyopathy resolved A 2024 2:02pm [facility] Work Phone: 1(349) 294-527404-01-2025 Evaluation note* Diagnosis Onset Date Resolution Status Admit Date Coronary artery disease chronic A pril 2024 2:02pm Hyperlipidemia chronic June 05, 2024 2:02pm Hypertension chronic June 05, 2 025 2:02pm Mitral regurgitation chronic Apri l 2024 2:02pm Stented coronary artery March 09, 2022 chron ic June 05, 2024 2:02pm Type 2 diabetes mellitus chronic June 05, 2024 2:02pm Ischemic cardiomyopathy resolved A pri2024 2:02pm Anemia acute September 10, 2024 7:32am Status post reverse total arthroplasty of right shoulder acute September 10, 2024 7:32am Stented coronary artery March 09, 2022 chron ic September 10, 2024 7:32am Type 2 diabetes mellitus chronic September 10, 2024 7:32am [facility] Work Phone: 1(675) 783-550701-05-2024 Progress note Author Radha Hammonds [facility] March 11, 2023 11:34am Note Date/Time March 11, 2023 11 :34am [facility] Medical Records Department [address] [place] [address] Progress Note - Cardiology 03/11/23 1133 MR#: [id number] Acct: [id number] Name: ELOISA TSANG Rep #:[id number] : 1950 72 From: Radha Hammonds MD PCP: Dr. Akbar Farias MD Status: ADM IN Location: [place] [address] Subjective Subjective Denies any complaints. No chest [...] % (Auto) 64.1, Lymph % (Auto) 22.5, Harnett% (Auto) 10.1 H, Eos % (Auto) 2.3, [...] % (Auto) 64.1, Lymph % (Auto) 22.5, Harnett % (Auto) 10.1 H, Eos % (Auto) [...] Cosigner Signature (if applicable): CC: ~ Signed [facility] Work Phone: 1(253) 943-271801-04-2024 Progress note Author Mildred Pedersen [facility] March 10, 2023 8:46am Note Date/Time March 10, 2023 7: 44am [facility] Medical Records Department [address] [facility] [place] [address] Progress Note - Hospitalist 03/10/23 0729 MR#: [id number] Acct: [id number] Name: ELOISA TSANG Rep #:[id number] : 1950 72 From: Mildred Pedersen DO PCP: Dr. Akbar Farias MD Status: ADM IN Location: ICU CVICU20 2-1 Reason for Visit Reason for Visit: [...] andwas concern for possible atrial flutter and FL so she was sent to the emergency department. In the emergency department she was noted to have an elevated initial troponin at 938 and an EKG that revealed acute ST segment elevation consistent with an NSTEMI. STEMI team was called and she was taken emergently to the Private Branch Exchange Repairer by Dr. Hammonds and she was noted [...] 77.1 H, Lymph % (Auto) 14.5 L, Harnett % (Auto) 7.4, Eos % (Auto) 0.2, [...] H 03/09/23 21:47: Troponin I High Sens 98851 H* 03/10/23 03:09: WBC 13.8 H, RBC [...] 20:15 EST Reading Location ID and State: [facility] / [place] , Service support , Physical Exam Const [...] with patient Charges/Coding Visit Charges Inpatient E&M: 09215 Subs Hosp L2 03/10/23 0846 <Electronically signed by Mildred Pedersen DO> Cosigner Signature (if applicable): CC: ~ Signed [facility] Work Phone: 1(134) 863-433201-04-2024 Progress note Author Radha Hammonds [facility] March 10, 2023 8:31am Note Date/Time March 10, 2023 8: 31am [facility] Medical Records Department [facility] [place] [address] [address] Progress Note - Cardiology 03/10/23 0829 MR#: [id number] Acct: [id number] Name: ELOISA TSANG Rep #:[id number] : 1950 72 From: Radha Hammonds [...] 77.1 H, Lymph % (Auto) 14.5 L, Harn[place] % (Auto) 7.4, Eos % (Auto) 0.2, [...] H 03/09/23 21:47: Troponin I High Sens 74732 H* 03/10/23 03:09: WBC 13.8 H, RBC [...] 77.1 H, Lymph % (Auto) 14.5 L, [place]arn[place] % (Auto) 7.4, Eos % (Auto) 0.2, [...] 20:15 EST [place] Location ID and State: [facility] / [place] , Service support , Physical Exam Narrative Comfortable. Heart sounds [...] Cosigner Signature (if applicable): CC: ~ Signed [facility] Work Phone: 1(389) 737-779201-04-2024 History and physical note Author Jon Jacome [facility] March 10, 2023 7:14am Note Date/Time March 09, 2023 8: 22pm [facility] Medical Records Department [address] [place] [address] H&P Exam - Hospitalist 03/09/232020 MR#: [id number] Acct: [id number] Name: ELOISA TSANG Rep #:[id number] : 1950 72 From: Jon Aaron [...] syndrome, GERD and osteoarthritis who presents to [facility] ER complaining of chest pain. Ms. Tsang [...] with concern for possible atrial flutter and FL. Inthe ER she was noted to have [...] expected to be greater than 48 hours. [facility] Medical History Benign breast cyst in [...] PO BID 05/12/17 [History Last Taken Unknown] ykgguqmrccrm-Pu-aasr-minerals 1 ea PO DAILY 05/12/17 [History Last [...] 77.1 H, Lymph % (Auto) 14.5 L, [place]arn[place] % (Auto) 7.4, Eos % (Auto) 0.2, [...] 55 minutes. Charges/Coding Visit Charges Inpatient E&M: 26166 Init Hosp L2 03/10/23 0714 <Electronically signed by Jon Whiting DO> Cosigner Signature (if applicable): CC: Dr. Akbar Farias MD; Dr. Jon Whiting DO~ Signed [facility] Work Phone: 1([phone]) 700-817801-03-2024 Consult note Author Radha Hammonds [facility] March 09, 2023 9:29pm Note Date/Time March 09, 2023 9: 29pm [facility] Medical Records Department [address] [place] [address] Consultation - Cardiology 03/09/232120 MR#: [id number] Acct: [id number] Name: ELOISA TSANG Rep #:[id number] : 1950 72 From: Radha Hammonds [...] of a drug-eluting stent was performed with pentecostal of TEMITOPE-3 flow. Excellent results were noted. [...] Denies any previous history of heart disease. [facility] Medical History (Updated 03/09/23 @ 21:27 [...] PO BID 05/12/17 [History Last Taken Unknown] cgsearueclxh-Oo-uqln-minerals 1 ea PO DAILY 05/12/17 [History Last [...] 77.1 H, Lymph % (Auto) 14.5 L, [place] % (Auto) 7.4, Eos % (Auto) 0.2, [...] 77.1 H, Lymph % (Auto) 14.5 L, [place] % (Auto) 7.4, Eos % (Auto) 0.2, [...] 20:15 EST Reading Location ID and State: [address] [place] [address] , Service support , 03/09/232128 <Electronically signed by Radha Hammonds MD> Cosigner Signature (if applicable): CC: Dr. Radha Hammonds MD; Dr. Akbar Farias MD~ Signed [facility] Work Phone: 1([phone]) 886-881601-03-2024 Discharge summary Author Leoncio Jorge [facility] March 09, 2023 8:25pm Note Date/Time March 09, 2023 7: 46pm [facility] Medical Records Department [address] [place] [address] Emergency Department Summary 03/09/23 MR#: [id number] Acct: [id number] Name: ELOISA TSANG Rep #:[id number] 7 : 1950 72 From: Leoncio Jorge [...] triage. Patient has an acute ST elevation FL. STEMI was called. Spoke with Dr. Romero [...] and Family History; Negative for Marfan's Syndrome [facility] Medical History (Updated 03/09/23 @ [...] PO BID 05/12/17 [History Last Taken Unknown] jbwulawgfsnj-Ho-fqxn-minerals 1 ea PO DAILY 05/12/17 [History Last [...] 77.1 H Lymph % (Auto) 14.5 L Harnett % (Auto) 7.4 Eos % (Auto) 0.2 [...] Zeny Rowell MD at 20:15 EST , EKG Initial EKG: Attestation: I personally reviewed and interpreted this EKG as follows: Interpretation: Sinus Tachycardia (Sinus tachycardia rate of 106. Patient has a left bundle branch block and ST elevation that is concerning for an inferior ST elevation FL. Left bundle may be new which is also concerning. There are no comparisons.) Management Discussion w/another healthcare provider: Business Operations Analyst (Spoke with data visualization developer. Patient was treated with aspirin, heparin and Brilinta. Private Branch Exchange Repairer has been called in.) Critical Care Time Critical Care Time: Yes Critical care time (excluding procedures): 30-74 minutes (31), Including time spent: (History, physical, documentation, treatment for ST elevation FL inferior leads, discussion with hospitalist, discussion with PCP, discussion with client technical professional), Discussing w/Patient &/or Family/Network Infrastructure Architect, Discussing w/Consultants and Arranging Admission or Transfer Discharge Plan Dx/Rx/DC Orders Clinical Impression: ST elevation (STEMI) myocardial infarction, Hypertension, Type 2 diabetes mellitus, Hypothyroidism Disposition Disposition: Acute Care Hospital [facility] Discharge Date/Time: 03/09/23 20:24 What to do if you have Problems For any increased pain, shortness of breath, bleeding, nausea or vomiting, chest pain, or any unexpected problems, contact your Primary Care Provider. Call [facility] ([phone]) or report to the closest Emergency Room. Call 911 if necessary. 03/09/232024 <Electronically signed by Leoncio Jorge MD> Cosigner Signature (if applicable): CC: Dr. 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 Endocervical component may not bedistinguished in cases of atrophy.[facility] A#[id number] Work Phone: Comment on above:Satisfactory for evaluation. Endocervical component may not bedistinguished in cases of atrophy.01-05-2022 NotePap Smear Specimen AdequacyNovember 2021 8:32amComment.Satisfactory for evaluation. Endocervical component may not bedistinguished in cases of atrophy. [facility] A#[id number] Work Phone: Comment on above:Satisfactory for evaluation. Endocervical component may not bedistinguished in cases of atrophy.01-05-2022 NotePap Smear Specimen AdequacyNov2021 8:32amComment.Satisfactory for evaluation. Endocervical component may not bedistinguished in cases of atrophy. [facility] A#[id number] Children'S Hospital Medical CenterComment on above: Satisfactory for evaluation. Endocervical component may not bedistinguished in cases of atrophy.Consult note Author Delfino Trevizo [facility] March 11, 2023 1:44pm Note Date/Time March 11, 2023 1: 43pm [facility] Medical Records Department [address] [place] [address] Counseling Note - Pharmacy 03/11/23 1340 MR#: [id number] Acct: [id number] Name: ELOISA TSANG Rep #:[id number] 2 : 1950 72 From: Delfino Trevizo PCP: Dr. Akbar Farias MD Status: ADM IN Y Location: [place] [address] Pharmacy [facility] Pharmacy Service has performed discharge medication reconciliation [...] capsule,delayed release 40 mg PO DAILY 08/03/16 gydrrbmyesyl-Gi-tvnp-minerals 1 ea PO DAILY vitamin 05/12/17 acetaminophen [...] signed by Delfino hair> Date _ Delfino Wilkinson Signature (if applicable): Date CC: ~ Signed [facility] Work Phone: Discharge summary Author Mildred Pedersen [facility] March 11, 2023 12:46pm Note Date/Time March 11, 2023 12 :24pm [facility] Medical Records Department [address] [place] [address] Discharge Summary 03/11/23 1223 MR#: [id number] Acct: [id number] Name: ELOSIA TSANG Rep #:[id number] 1 : 1950 72 From: Mildred Pedersen DO PCP: Dr. Akbar Farias MD Status: ADM IN Location: [place] [address] Providers Date of Admission: 03/09/23 Date of [...] Code(s): I25.10 - Atherosclerotic heart disease of [place] coronary artery without angina pectoris (3) Hypertension: [...] capsule,delayed release 40 mg PO DAILY 08/03/16 cdzmjtirkajk-Mx-csij-minerals 1 ea PO DAILY vitamin 05/12/17 acetaminophen 500 mg tablet 500 mg PO BID PRN PRN Pain Or Fever 08/14/19 amlodipine 5 mg tablet 5 mg PO DAILY 08/14/19 metformin 500 mg tablet 1,000 mg PO BID 02/09/21 apixaban 5 mg (74 tabs) tablets in a dose pack (Eliquis DVT-PE Treat 30D Start) 10 mg PO [...] was concern for possible atrial flutter and FL so she wassent to the emergency department. In the emergency department she was noted to have an elevated initial troponin at 938 and an EKG that revealed acute ST segment elevation consistent with an NSTEMI. STEMI team was called and she was taken emergently to the Private Branch Exchange Repairer by Dr. Hammonds and she was noted [...] % (Auto) 64.1, Lymph % (Auto) 22.5, Harnett% (Auto) 10.1 H, Eos % (Auto) 2.3, [...] Richie at discharge?: Yes Done w/ Acute FL measure.: Yes Documented LVEF (%): 45 Discharge Plan Admission Admit Date/Time: 03/09/23 21:20 Primary Reason for Your Visit: Chest Pain Attending Provider: Mildred Pedersen Primary Care Provider: Akbar Farias Consulting Providers: Radha Hammonds; Jon Whiting Instructions Patient Instructions: First [...] 500 mg tablet 1,000 mg PO BID fqwmfgffdjnj-Kf-abot-minerals 1 EACH tablet 1 ea PO DAILY [...] Recorder Preventi (Urgent) Timeframe: 1 Day Facility: [facility] - Location: Cardiovascular Services Ordered By: Dr. Mildred Pedersen Referrals / Follow Up: Akbar Farias MD [Primary Care Provider] - Within 2 Weeks (Please call the office to schedule an appt. ) Josh Greene LABORATORY HELPER, LABORATORY HELPER-C [Med Staff - Adv Practice Prof] - 04/05/23 10:00 am Disposition Disposition (needs filled in before D/C Order can be placed): Home, Self Care Charges/Coding Visit Charges Inpatient E&M: 50546 Disch Hosp >30min 03/11/23 1246 <Electronically signed by Mildred Pedersen DO> Cosigner Signature (if applicable): CC: Dr. Akbar Farias MD; Dr. Mildred Pedersen DO~ Signed [facility] Work Phone: Evaluation noteNo assessment information available [facility] Work Phone: Evaluation note* Diagnosis Onset Date Resolution Status History of right breast cancer chronic Breast lump in female acute History of breast cancer acu te Benign breast cyst in female chronic Ductal carcinoma of breast c hronic History of right breast cancer chronic [facility] Work Phone: Evaluation note* Diagnosis Onset Date Resolution Status History of right breast cancer chronic Breast lump in female acute History of breast cancer acu te Benign breast cyst in female chronic Ductal carcinoma of breast c hronic History of right breast cancer chronic ST elevation (STEMI) myocardial infarction acute Hypertension chronic Hypothyroidism chronic Type 2 diabetes mellitus chr [facility] Work Phone: Evaluation note* Diagnosis Onset Date Resolution Status History [...] chronic Hypothyroidism chronic Type 2 diabetes mellitus chr [facility] Work Phone: Evaluation note* Diagnosis Onset Date Resolution Status History of right breast cancer chronic Breast lump in female acute History of breast cancer acu te Benign breast cyst in female chronic Ductal carcinoma of breast c hronic History of right breast cancer chronic Anemia acute Leukocytosis resolved [facility] Work Phone: Evaluation note* Diagnosis Onset Date Resolution Status History [...] diabetes mellitus acu te Hyperlipidemia chronic Hypertension [facility] Work Phone: Evaluation note* Diagnosis Onset Date Resolution Status Anemia acute Coronary artery disease 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 ximena Hypertension chronic Type 2 diabetes mellitus chr onic Leukocytosis resolved Hyperlipidemia chronic Hypertension chronic Ischemic cardiomyopathy 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 ximena Stented coronary artery March 09, 2022 chronic Type 2 diabetes mellitus chr onic Coronary artery disease 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 ximena Hyperlipidemia chronic Hypertension chronic Ischemic cardiomyopathy 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 ximena Stented coronary artery March 09, 2022 chronic Type 2 diabetes mellitus [facility] Work Phone: Reason for referral (narrative)No reason for referral information availableWSalem [facility] Work Phone: Family History Relationship Condition Age at Onset Recorded Date/T [...] Unknown sister Diabetes mellitus Unknown Advance Directives Advance Directive Response Recorded Date/ Time Living Will No January 01 10:22am Power of Tower Hoist Operator No January 01, 2019 10:22am Advance Directive Response Recorded Date/ Time Living Will No January 01 9:22am Power of Tower Hoist Operator No January 01, 2019 9:22am Advance Directive Response Recorded Date/ Time Living Will No March 09 7:45pm Power of Tower Hoist Operator No March 09 7:45pm Advance Directive Response Recorded Date/ Time Living Will No March 09 9:33pm Power of Tower Hoist Operator No March 09 9:33pm Advance Directive Response Recorded Date/ Time Advance Directives on File No Markd 2023 9:07am Living Will No March 22 9:30am Power of Tower Hoist Operator No March 22, 2023 9:07am Advance Directive Response Recorded Date/ Time Advance Directives on File No Markd 2023 10:07am Living Will No March 22 10:30am Power of Tower Hoist Operator No March 22, 2023 10:07am Advance Directive Response Recorded Date/ Time Do you have a [facility] Power of Tower Hoist Operator? No September 10, 2024 3:44pm Chief Complaint and Reason for Visit Chief [...] STEMI A-FIB FLUTTER PCI with stent S/P [facility] 03/10 STEMI PCI with stent, STEMI Reason [...] 30 DAY MONITOR PCI with stent S/P [facility] 03/10 STEMI PCI with stent, STEMI PCI [...] 30 DAY MONITOR PCI with stent S/P [facility] 03/10 STEMI PCI with stent, STEMI PCI with stent, STEMI PCI with stent, STEMI Reason for Visit Anemia Type 2 diabetes mellitus Hypertension Leukocytosis Ischemic cardiomyopathy Stented coronary artery Type 2 diabetes mellitus Hyperlipidemia Hypertension Chief Complaint STEMI ACUTE INFERIOR STEMI STEMI STEMI STEMI STEMI A-FIB FLUTTER 30 DAY MONITOR PCI with stent S/P [facility] 03/10 STEMI PCI with stent, STEMI PCI [...] 30 DAY MONITOR PCI with stent S/P [facility] 03/10 STEMI PCI with stent, STEMI PCI [...] 3pm PRE-OP August 20, 2024 12:5 3pm Chief Complaint Admit Date 6 M FU June 05, 2024 2:02 pm E ORDERS June 11, 2024 10:0 5am CAD/ASHD June 29, 2024 12: 36pm PREOP August 16, 2024 12:3 3pm PRE-OP August 20, 2024 12:5 3pm Total Shoulder Replacement, Reverse September 10, 2024 7:32am Total Shoulder Replacement, Reverse September 10, 2024 4:07pm Reason for Visit Admit Date Coronary artery disease June 05, 2024 2:02pm Hyperlipidemia June 05, 2024 2:02 pm Hypertension June 05, 2024 2:02 pm Mitral regurgitation June 05, 2024 2:0 2pm Stented coronary artery June 05, 2024 2:02pm Type 2 diabetes mellitus June 05, 2024 2:02pm Ischemic cardiomyopathy June 05, 2024 2:02pm Anemia September 10, 2024 7:32a m 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 September 10, 2024 7:32am Stented coronary artery September 10, 2024 7 :32am Type 2 diabetes mellitus September 10, 2024 7:32am Chief Complaint Admit Date CAD/ASHD June 29, 2024 12: 36pm PREOP August 16, 2024 12:3 3pm PRE-OP August 20, 2024 12:5 3pm Total Shoulder Replacement, Reverse September 10, 2024 7:32am Total Shoulder Replacement, Reverse September 10, 2024 4:07pm Total Shoulder Replacement, Reverse September 11, 2024 7:20am Reason for Visit Admit Date Anemia September 10, 2024 7:32a m 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 September 10, 2024 7:32am Stented coronary artery September 10, 2024 7 :32am Type 2 diabetes mellitus September 10, 2024 7:32am Chief Complaint Admit Date Total Shoulder Replacement, Reverse September 10, 2024 7:32am Total Shoulder Replacement, Reverse September 10, 2024 4:07pm Total Shoulder Replacement, Reverse September 11, 2024 7:20am 6 M FU December 20, 2024 1 :50pm Reason for Visit Admit Date Anemia September 10, 2024 7:32a m 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 Akbar Farias MD [facility] Dr[facility] Floyd Ahmadi MD Attending Provider Active Team Status: Active Member Role Status Dates Noy Jean Baptiste LABORATORY HELPER, LABORATORY HELPER-C Attending Provider, Referring Provider Active Dr. Akbar [...] Radha Hammonds MD Other Provider Active Dr. Jno Whiting DO Admit Provider, Other Provid er [...] Provider, Refe rring Provider Active Josh Greene LABORATORY HELPER, LABORATORY HELPER-C Attending Provider Active Team Status: Active Member Role Status Dates Dr. Akbar Farias MD Primary Care Provider Activ e Dr. Telly Cardoso MD Attending Provider Active Dr. Mildred Pedersen DO Referring Provider Active Team Status: Active Member Role Status Dates Dr. Teodoro Farias MD Family Provider Active Dr. Teoodro Farias MD Primary Care Provider Acti ve [...] Provider, Ref erring Provider Active Josh Greene LABORATORY HELPER, LABORATORY HELPER-C Attending Provider Active Team Status: Active Member [...] MD Primary Care Provider Acti ve Josh Greene LABORATORY HELPER, LABORATORY HELPER-C Attending Provider, Referring Pro vider Active Team Status: Active Member Role Status Dates Dr. Teodoro Farias MD Primary Care Provider Acti ve Dr. Radha Hammonds MD Attending Provider Active Team Status: Inactive Member Role Status Dates Dr. Teodoro Farias MD Primary Care Provider Acti ve Josh Pat Ramona LABORATORY HELPER, LABORATORY HELPER-C Attending Provider, Referring Pro vider Active Team [...] August 20, 2024 End: August 20, 2024 Team Status: Active Member Role/Relationship Status Dates Dr. Teodoro Farias MD Primary Care Provider Acti ve Team Status: Inactive Member Role/Relationship Status Dates Dr. Teodoro Farias MD Primary Care Provider Acti ve Start: June 05, 2024 End: June 05, 2024 Dr. Teodoro Farias MD Referring Provider Active Start: June 05, 2024 End: June 05, 2024 Dr. Radha Hammonds MD Attending Provider Active Start: June 05, 2024 End: June 05, 2024 Team Status: Inactive Member Role/Relationship Status Dates Dr. Teodoro Farias MD Primary Care Provider Acti ve Start: June 11, 2024 End: June 11, 2024 Dr. Radha Hammonds MD Attending Provider Active Start: June 11, 2024 End: June 11, 2024 Dr. Radha Hammonds MD Referring Provider Active Start: June 11, 2024 End: June 11, 2024 Team Status: Inactive Member Role/Relationship Status Dates Dr. Teodoro Farias MD Primary Care Provider Acti ve Start: June 29, 2024 End: June 29, 2024 Dr. Radha Hammonds MD Attending Provider Active Start: June 29, 2024 End: June 29, 2024 Dr. Radha Hammonds MD Referring Provider Active Start: June 29, 2024 End: June 29, 2024 Team Status: Active Member Role/Relationship Status Dates Dr. Teodoro Farias MD Primary Care Provider Acti ve Start: June 29, 2024 Dr. Radha Hammonds MD Attending Provider Active Start: June 29, 2024 Team Status: Inactive Member Role/Relationship Status Dates Dr. Teodoro Farias MD Primary Care Provider Acti ve Start: July 10, 2024 End: July 10, 2024 Dr. Teodoro Farias MD Attending Provider Active Start: July 10, 2024 End: July 10, 2024 Dr. Teodoro Farias MD Referring Provider Active Start: July 10, 2024 End: July 10, 2024 Team Status: Active Member Role/Relationship Status Dates Dr. Teodoro Farias MD Primary Care Provider Acti ve Start: August 16, 2024 End: August 16, 2024 Dr. Ernesto Tovar MD Attending Provider Active Start: August 16, 2024 End: August 16, 2024 Dr. Corey Mckeon MD Referring Provider Active Start: August 16, 2024 End: August 16, 2024 Team Status: Inactive Member Role/Relationship Status Dates Dr. Teodoro Farias MD Primary Care Provider Acti ve Start: August 20, 2024 End: August 20, 2024 Dr. Corey Mckeon MD Attending Provider Active Start: August 20, 2024 End: August 20, 2024 Dr. Corey Mckeon MD Referring Provider Active Start: August 20, 2024 End: August 20, 2024 Team Status: Inactive Member Role/Relationship Status Dates Dr. Teodoro Farias MD Primary Care Provider Acti ve Start: September 10, 2024 End: September 11, 2024 Dr. Corey Mckeon MD Admit Provider Active Sta rt: September 10, 2024 End: September 11, 2024 Dr. Corey Mckeon MD Attending Provider Active Start: September 10, 2024 End: September 11, 2024 Dr. Corey Mckeon MD Referring Provider Active Start: September 10, 2024 End: September 11, 2024 Dr. Lisbeth Lopez MD Other Provider Active St art: September 10, 2024 End: September 11, 2024 Team Status: Active Member Role/Relationship Status Dates Dr. Teodoro Farias MD Primary Care Provider Acti ve Start: September 10, 2024 Dr. Corey Mckeon MD Admit Provider Active Sta rt: September 10, 2024 Dr. Corey Mckeon MD Referring Provider Active Start: September 10, 2024 Dr. Corey Mckeon MD Other Provider Active Sta rt: September 10, 2024 Dr. Regina Sawyer MD Attending Provider Active Start: September 10, 2024 Dr. Regina Sawyer MD Other Provider Active Star t: September 10, 2024 Team Status: Inactive Member Role/Relationship Status Dates Dr. Teodoro Farias MD Primary Care Provider Acti ve Start: June 29, 2024 End: June 29, 2024 Dr. Radha Hammonds MD Attending Provider Active Start: June 29, 2024 End: June 29, 2024 Dr. Radha Hammonds MD Referring Provider Active Start: June 29, 2024 End: June 29, 2024 Team Status: Active Member Role/Relationship Status Dates Dr. Teodoro Farias MD Primary Care Provider Acti ve Start: June 29, 2024 Dr. Radha Hammonds MD Attending Provider Active Start: June 29, 2024 Team Status: Inactive Member Role/Relationship Status Dates Dr. Teodoro Farias MD Primary Care Provider Acti ve Start: July 10, 2024 End: July 10, 2024 Dr. Teodoro Farias MD Attending Provider Active Start: July 10, 2024 End: July 10, 2024 Dr. Teodoro Farias MD Referring Provider Active Start: July 10, 2024 End: July 10, 2024 Team Status: Active Member Role/Relationship Status Dates Dr. Teodoro Farais MD Primary Care Provider Acti ve Start: August 16, 2024 End: August 16, 2024 Dr. Ernesto Tovar MD Attending Provider Active Start: August 16, 2024 End: August 16, 2024 Dr. Corey Mckeon MD Referring Provider Active Start: August 16, 2024 End: August 16, 2024 Team Status: Inactive Member Role/Relationship Status Dates Dr. Teodoro Farias MD Primary Care Provider Acti ve Start: August 20, 2024 End: August 20, 2024 Dr. Corey Mckeon MD Attending Provider Active Start: August 20, 2024 End: August 20, 2024 Dr. Corey Mckeon MD Referring Provider Active Start: August 20, 2024 End: August 20, 2024 Team Status: Inactive Member Role/Relationship Status Dates Dr. Teodoro Farias MD Primary Care Provider Acti ve Start: September 10, 2024 End: September 11, 2024 Dr. Corey Mckeon MD Admit Provider Active Sta rt: September 10, 2024 End: September 11, 2024 Dr. Corey Mckeon MD Attending Provider Active Start: September 10, 2024 End: September 11, 2024 Dr. Corey Mckeon MD Referring Provider Active Start: September 10, 2024 End: September 11, 2024 Dr. Lisbeth Lopez MD Other Provider Active St art: September 10, 2024 End: September 11, 2024 Team Status: Active Member Role/Relationship Status Dates Dr. Teodoro Farias MD Primary Care Provider Acti ve Start: September 10, 2024 Dr. Corey Mckeon MD Admit Provider Active Sta rt: September 10, 2024 Dr. Corey Mckeon MD Referring Provider Active Start: September 10, 2024 Dr. Corey Mckeon MD Other Provider Active Sta rt: September 10, 2024 Dr. Regina Sawyer MD Attending Provider Active Start: September 10, 2024 Dr. Regina Sawyer MD Other Provider Active Star t: September 10, 2024 Team Status: Active Member Role/Relationship Status Dates Dr. Teodoro Farias MD Primary Care Provider Acti ve Start: September 11, 2024 Dr. Corey Mckeon MD Admit Provider Active Sta rt: September 11, 2024 Dr. Corey Mckeon MD Other Provider Active Sta rt: September 11, 2024 Dr. Lisbeth Lopez MD Attending Provider Active Start: September 11, 2024 Dr. Lisbeth Lopez MD Other Provider Active St art: September 11, 2024 Team Status: Inactive Member Role/Relationship Status Dates Dr. Teodoro Farias MD Primary Care Provider Acti ve Start: October 17, 2024 End: October 17, 2024 Dr. Teodoro Farias MD Attending Provider Active Start: October 17, 2024 End: October 17, 2024 Dr. Teodoro Farias MD Referring Provider Active Start: October 17, 2024 End: October 17, 2024 Team Status: Active Member Role/Relationship Status Dates Dr. Teodoro Farias MD Primary care physician Act joi Team Status: Inactive Member Role/Relationship Status Dates Dr. Teodoro Farias MD Primary care physician Act joi Start: September 10, 2024 End: September 11, 2024 Dr. Corey Mckeon MD Admitting physician Active Start: September 10, 2024 End: September 11, 2024 Dr. Corey Mckeon MD Attending physician Active Start: September 10, 2024 End: September 11, 2024 Dr. Corey Mckeon MD Referring Provider Active Start: September 10, 2024 End: September 11, 2024 Dr. Lisbeth Lopez MD Nurse Practitioner Active Start: September 10, 2024 End: September 11, 2024 Team Status: Active Member Role/Relationship Status Dates Dr. Teodoro Farias MD Primary care physician Act joi Start: September 10, 2024 Dr. Corey Mckeon MD Admitting physician Active Start: September 10, 2024 Dr. Corey Mckeon MD Referring Provider Active Start: September 10, 2024 Dr. Corey Mckeon MD Nurse Practitioner Active Start: September 10, 2024 Dr. Regina Sawyer MD Attending physician Active Start: September 10, 2024 Dr. Regina Sawyer MD Nurse Practitioner Active Start: September 10, 2024 Team Status: Active Member Role/Relationship Status Dates Dr. Teodoro Farias MD Primary care physician Act joi Start: September 11, 2024 Dr. Corey Mckeon MD Admitting physician Active Start: September 11, 2024 Dr. Corey Mckeon MD Nurse Practitioner Active Start: September 11, 2024 Dr. Lisbeth Lopez MD Attending physician Active Start: September 11, 2024 Dr. Lisbeth Lopez MD Nurse Practitioner Active Start: September 11, 2024 Team Status: Inactive Member Role/Relationship Status Dates Dr. Teodoro Farias MD Primary care physician Act joi Start: October 17, 2024 End: October 17, 2024 Dr. Teodoro Farias MD Attending physician Active Start: October 17, 2024 End: October 17, 2024 Dr. Teodoro Farias MD Referring Provider Active Start: October 17, 2024 End: October 17, 2024 Team Status: Inactive Member Role/Relationship Status Dates Dr. Teodoro Farias MD Primary care physician Act joi Start: December 20, 2024 End: December 20, 2024 Dr. Teodoro Farias MD Referring Provider Active Start: December 20, 2024 End: December 20, 2024 Dr. Radha Hammonds MD Attending physician Active Start: December 20, 2024 End: December 20, 2024 Team Status: Inactive Member Role/Relationship Status Dates Dr. Teodoro Farias MD Primary care physician Act joi Start: December 26, 2024 End: December 26, 2024 Dr. Radha Hammonds MD Attending physician Active Start: December 26, 2024 End: December 26, 2024 Dr. Radha Hammonds MD Referring Provider Active Start: December 26, 2024 End: December 26, 2024 INFORMATION SOURCE (unrecogn ized section and content) DATE CREATED AUTHOR 12/30/2024 [facility] FOR RECORDS PERTAINING TO PATIENTS WHO ARE [...] BE BASED ON THE PRIMARY CLINICAL RECORDS. [employer] provides no warranty or guarantee of the accuracy or completeness of information in this document.
--- NOTE | 2025-01-17 11:53 | STRESSREP ---
Stress Test Report Date: 01/17/2025 Procedure: Pharmacologic stress nuclear imaging study Indications: Coronary artery disease Consent: Per the patient Procedure: The patient underwent pharmacologic (Regadenoson 0.4mg ) evaluation with a peak heart rate of 101 beats per minute (68%predicted maximal heart rate) and a peak blood pressure of 158/82 mmHg. The baseline ECG demonstrated sinus rhythm with left bundle branch block. The peak pharmacologic ECG was nondiagnostic. There were no cardiac dysrhythmias pretest, during pharmacologic infusion, or recovery. There was no complaint of chest discomfort during pharmacologic infusion or recovery. The patient was injected with 12.0 millicuries of technetium 99m Cardiolite and subsequently rest SPECT Cardiolite nuclear imaging was obtained in the horizontal long, vertical long, and short axis views. The patient underwent pharmacologic (Regadenoson) evaluation. The patient was injected with 34.1 millicuries of technetium 99m Cardiolite and subsequently stress SPECT Cardiolite nuclear imaging was obtained in the horizontal long, vertical long, and short axis views. A gated Cardiolite study at peak stress was obtained. The examination was stopped secondary to completion of protocol. Rest and stress SPECT Cardiolite nuclear imaging status post realignment, normalization, and attenuation correction demonstrate moderate to large size fixed inferior defect suggestive of prior inferior myocardial infarction. No significant favio-infarct ischemia. Inferior akinesis noted on gated images. Reported LVEF is 38%. Impression: 1. Pharmacologic (Regadenoson) evaluation 2. Peak pharmacologic ECG nondiagnostic secondary to baseline abnormality. 3. There were no cardiac dysrhythmias pretest, during pharmacologic infusion, or recovery. 5. Prior inferior infarct. No reversible ischemia. 6. The gated Cardiolite study reports an LVEF of 38%. This note was generated with [employer] software. It may contain incorrect words, spelling, and punctuation that were not noted in checking the note before signing.
== END | disposition home or self-care (01) ==
LOC: CVS 06:59
PROVIDERS: PCP Family Medicine; Referring Provider Internal Medicine Cardiovascular Disease; Visit Provider Internal Medicine Cardiovascular Disease
DX: I25.10 Atherosclerotic heart disease of native coronary artery without angina pectoris (principal); E11.9 Type 2 diabetes mellitus without complications; I34.0 Nonrheumatic mitral (valve) insufficiency; I25.5 Ischemic cardiomyopathy; I10 Essential (primary) hypertension; E78.2 Mixed hyperlipidemia; Z95.5 Presence of coronary angioplasty implant and graft
CPT/HCPCS: 78452; 93017; 93306; A9500; A4216; J2785

== ENCOUNTER → 2025-01-28 | Outpatient (CLI) | payer MEDICARE, SELFPAY ==
[2023-05-20 08:36] VITALS: BMI 30.2
--- NOTE | 2025-01-28 10:30 | BI_ITS ---
EXAM: SCREEN MAMM (CAD) W/HILARY UNI L DATE: 01/28/2025 CLINICAL HISTORY: F, Age 74 y/o , SCREENING TECHNIQUE: Procedure Code: [id number] Modality: MG Procedure: SCREEN MAMM (CAD) W/HILARY UNI L COMPARISON: Prior exam(s) dated 01/26/2024, 01/24/2023, and 01/22/2022. FINDINGS: TISSUE DENSITY: The breasts are heterogeneously dense, which may obscure small masses. Bilateral Breast Mammographic Findings: A 7 mm masslike density is seen in the far posterior retroareolar region of the left breast on the MLO view. Further workup is indicated. Benign-appearing round microcalcifications and macrocalcifications are seen in the left breast. BI/SCREEN MAMM (CAD) W/HILARY UNI L IMPRESSION: A 7 mm masslike density is seen in the far posterior retroareolar region of the left breast on the MLO view. Further workup is indicated. Patient should return for an LM view and exaggerated lateral CC vi ew of the left breast and a spot compression MLO view of the left breast density. An ultrasound may also be needed. OVERALL FINAL ASSESSMENT BI-RADS 0: INCOMPLETE - NEED ADDITIONAL IMAGING EVALUATION. RECOMMENDATION: Additional Views obtained/call backs Additional Recommendation none A letter with findings and recommendations will be mailed to the patient. Reading Location: [id number]
== END | disposition home or self-care (01) ==
PROVIDERS: PCP Family Medicine; Referring Provider Internal Medicine Medical Oncology; Visit Provider Internal Medicine Medical Oncology
DX: Z12.31 Encounter for screening mammogram for malignant neoplasm of breast (principal)
CPT/HCPCS: 77063; 77067

== ENCOUNTER → 2025-02-07 | Outpatient (CLI) | payer MEDICARE, SELFPAY ==
[2023-05-20 08:36] VITALS: BMI 30.2
--- NOTE | 2025-02-07 12:31 | BI_ITS ---
EXAM: DIAG MAMM W/CAD, UNILAT 02/07/2025 CLINICAL HISTORY: F, Age 74 y/o , ABN MAMM. Tiny density in the posterior deep aspect of the left breast. Prior right mastectomy. Sister with breast cancer. Mother with breast cancer. TECHNIQUE: Procedure Code: [id number] Modality: MG Procedure: DIAG MAMM W/CAD, UNILAT. 90 degree lateral and compression spot views of the left breast were obtained. COMPARISON: Prior exam(s) dated January 28, 2025.. FINDINGS: TISSUE DENSITY: The breasts are extremely dense, which lowers the sensitivity of mammography. Bilateral Breast Mammographic Findings: No significant masses, calcifications or other abnormalities are identified. Sonographic correlation recommended. BI/DIAG MAMM W/CAD, UNILAT IMPRESSION: Unremarkable diagnostic mammogram. Targeted sonographic correlation recommende d. OVERALL FINAL ASSESSMENT BI-RADS 0: INCOMPLETE - NEED ADDITIONAL IMAGING EVALUATION. RECOMMENDATION: Ultrasound Recommended Additional Recommendation none A letter with findings and recommendations will be mailed to the patient. Reading Location: [place] [id number]
== END | disposition home or self-care (01) ==
LOC: OPBI 12:28
PROVIDERS: PCP Family Medicine; Referring Provider Internal Medicine Medical Oncology; Visit Provider Internal Medicine Medical Oncology
DX: R92.8 Other abnormal and inconclusive findings on diagnostic imaging of breast (principal)
CPT/HCPCS: 77061; 77065; G0279